=== PATIENT | female | born 1960 | race Caucasian/White ===

== ENCOUNTER 2016-11-19 19:10 | Emergency (ER) | payer MEDICARE, MEDICAID ==
[2016-11-19] MEDS ORDERED: Haloperidol Lactate 5 mg/mL 1mL Vial IM STA (19:11)
[2016-11-19] MEDS ORDERED: Haloperidol Lactate 5 mg/mL 1mL Vial ONE (19:15)
[2016-11-19 20:30] LABS: % BASOPHILS 0.5 % (0.0-2.0); % LYMPHOCYTES 35.3 % (20.0-50.0); % MONOCYTES 12.2 % (2.0-10.0); HEMATOCRIT 33.3 % (35.0-45.0); HEMOGLOBIN 11.5 gm/dL (11.7-15.5); MEAN CELL VOLUME 86.2 fl (81-100); MEAN CORPUSCULAR HEMOGLOBIN 29.7 pg (27.0-31.0); MEAN CORPUSCULAR HGB CONC 34.5 pg (28.0-36.0); MEAN PLATELET VOLUME 9.3 fl; PLATELET COUNT 156 Th/cmm (150-400); RED BLOOD COUNT 3.86 Mil/cmm (3.80-5.10); WHITE BLOOD COUNT 8.1 Th/cmm (4.8-10.8)
[2016-11-19 20:46] LABS: ALB/GLOB RATIO 1.6 (1.0-1.8); ALKALINE PHOSPHATASE 98 U/L (34-104); ANION GAP 5.3 (7.0-16.0); BILIRUBIN,TOTAL 0.2 mg/dL (0.3-1.0); BUN - UREA NITROGEN 10 mg/dL (7-25); BUN/CREATININE RATIO 14.3; CALCIUM SERUM 9.7 mg/dL (8.6-10.3); CARBON DIOXIDE 32.6 mEq/L (21.0-31.0); CHLORIDE 98 mEq/L (98-107); CREATININE - SERUM 0.7 mg/dL (0.6-1.2); GLUCOSE 94 mg/dL (70-105); POTASSIUM SERUM 3.9 mEq/L (3.5-5.1); SGOT 12 U/L (13-39); SGPT/ALT 5 U/L (7-52); SODIUM SERUM 132 mEq/L (136-145)
--- NOTE | 2016-11-19 20:59 | ED Physician Chart ---
Chief Complaint/HPI - Patient Information Date Seen:: 11/19/16 Time Seen:: 19:44 Chief Complaint:: PSYCHOSIS History of Present Illness:: THIS IS A LOUD COMBATIVE 56 YO FEMALE SENT HERE FOR EVALUATION AND TREATMENT. SHE IS SCREAMING AND WITH UNCONTROLLED AND HAD TO BE GIVEN SEDATION TO EXAMINE AND TREAT HER. Allergies:: Allergies Allergy/AdvReac Type Severity Reaction Status Date / Time Penicillins Allergy Verified 11/19/16 19:31 pregabalin Allergy Verified 11/19/16 19:31 Vitals:: Vital Signs - 8 hr 11/19/16 19:31 Temp 98.1 F HR 71 RR 20 BP 125/50 O2 Sat % 97 Historian:: Patient Review:: Nurse's Note Reviewed, Old Chart Reviewed, Transfer documents Reviewed Review of Systems - Review of Systems General/Constitutional: No fever, No chills, No weight loss, No weakness, No diaphoresis, No edema, No loss of appetite, Other (UNABLE TO OBTAIN BECAUSE OF HER CONFUSION) Skin: No skin lesions, No rash, No bruising Head: No headache, No light-headedness Eyes: No loss of vision, No pain, No diplopia ENT: No earache, No nasal drainage, No sore throat, No tinnitus Neck: No neck pain, No swelling, No thyromegaly, No stiffness, No mass noted Cardio Vascular: No chest pain, No palpitations, No PND, No orthopnea, No edema Pulmonary: No SOB, No cough, No sputum, No wheezing GI: No nausea, No vomiting, No diarrhea, No pain, No melena, No hematochezia, No constipation, No hematemesis G/U: No dysuria, No frequency, No hematuria Musculoskeletal: No bone or joint pain, No back pain, No muscle pain Endocrine: No polyuria, No polydipsia Psychiatric: No prior psych history, No depression, No anxiety, No suicidal ideation Hematopoietic: No bruising, No lymphadenopathy Allergic/Immuno: No urticaria, No angioedema Neurological: No syncope, No focal symptoms, No weakness, No paresthesia, No headache, No seizure, No dizziness, No confusion, No vertigo Past Medical History - Past Medical History Obtainable: Yes Past Medical History: PUD/GERD, Dementia Family History: None Social History: Non Smoker, No Alcohol, No Drug Use Surgical History: Pacemaker Psychiatricy History: Schizophrenia, Bipolar, Dementia Physical Exam - Physical Examination General/Constitutional: Awake, Well-developed, well-nourished, Alert, No distress, GCS 15, Non-toxic appearing, Ambulatory Other Gen/Cons comments:: THIS PATIENT IS OUT OF CONTROL FIGHTING, SCREAMING AND BEING UNCOOPERATIVE. Head: Atraumatic Eyes: Lids, conjuctiva normal, PERRL, EOMI Skin: Nl inspection, No rash, No skin lesions, No ecchymosis, Well hydrated, No lymphadenopathy ENMT: External ears, nose nl, Nasal exam nl, Lips, teeth, gums nl Neck: Nontender, Full ROM w/o pain, No JVD, No nuchal rigidity, No bruit, No mass, No stridor Respiratory: Nl effort/Exclusion, Clear to Auscultation, No Wheeze/Rhonchi/Rales Cardio Vascular: RRR, No murmur, gallop, rubs, NL S1 S2 GI: No tenderness/rebounding/guarding, No organomegaly, No hernia, Normal BS's, Nondistended, No mass/bruits, No McBurney tenderness : No CVA tenderness Extremities: No tenderness or effusion, Full ROM, normal strength in all extremities, No edema, Normal digits & nails Neuro/Psych: DTR's symmetric, Normal sensory exam, Normal motor strength, Normal gait, No focal deficits Other Neuro/Psych comments:: THIS PATIENT IS DISORIENTED AND CONFUSED Misc: normal gait, Normal back, No paraspinal tenderness Labs/Radiology/EKG Results - Lab Results Results: Laboratory Tests 11/19/16 11/19/16 11/19/16 20:15 20:15 20:15 WBC 8.1 RBC 3.86 Hgb 11.5 L Hct 33.3 L MCV 86.2 MCH 29.7 MCHC Differential 34.5 RDW 15.0 Plt Count 156 MPV 9.3 Neutrophils % 50.0 Lymphocytes % 35.3 Monocytes % 12.2 H Eosinophils % 2.0 Basophils % 0.5 Sodium 132 L Potassium 3.9 Chloride 98 Carbon Dioxide 32.6 H Anion Gap 5.3 L BUN 10 Creatinine 0.7 Est GFR ( Amer) > 60.0 Est GFR (Non-Af Amer) > 60.0 BUN/Creatinine Ratio 14.3 Glucose 94 Calcium 9.7 Total Bilirubin 0.2 L AST 12 L ALT 5 L Alkaline Phosphatase 98 Troponin I < 0.01 L Total Protein 5.9 L Albumin 3.6 L Globulin 2.3 Albumin/Globulin Ratio 1.6 Abnormal Lab Results 11/19/16 11/19/16 11/19/16 20:15 20:15 20:15 WBC 8.1 RBC 3.86 Hgb 11.5 L Hct 33.3 L MCV 86.2 MCH 29.7 MCHC Differential 34.5 RDW 15.0 Plt Count 156 MPV 9.3 Neutrophils % 50.0 Lymphocytes % 35.3 Monocytes % 12.2 H Eosinophils % 2.0 Basophils % 0.5 Sodium 132 L Potassium 3.9 Chloride 98 Carbon Dioxide 32.6 H Anion Gap 5.3 L BUN 10 Creatinine 0.7 Est GFR ( Amer) > 60.0 Est GFR (Non-Af Amer) > 60.0 BUN/Creatinine Ratio 14.3 Glucose 94 Calcium 9.7 Total Bilirubin 0.2 L AST 12 L ALT 5 L Alkaline Phosphatase 98 Troponin I < 0.01 L Total Protein 5.9 L Albumin 3.6 L Globulin 2.3 Albumin/Globulin Ratio 1.6 Assessment - Assessment General Assessment: PSYCHOSIS ED Septic Shock - . 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
[2016-11-19] MEDS ORDERED: Levothyroxine 0.025 Mg Tab PO ONE (21:54)
[2016-11-19] MEDS ORDERED: Levothyroxine 0.025 Mg Tab ONE (22:16)
--- NOTE | 2016-11-20 08:22 | Diagnostic Imaging Report ---
CHEST X-RAY: AP view INDICATION: Cough COMPARISON: None FINDINGS: Left chest wall pacer seen with leads in the region right atrium and right ventricle. Chronic lung changes are seen with suboptimal lung volumes and increased left basal lung markings. There may be a trace left effusion. Heart size is normal. Atherosclerosis is noted. Degenerative changes of the spine and shoulders are noted. IMPRESSION: Suboptimal lung markings are seen with chronic changes. Increased left basal lung markings are seen which may be due to subsegmental atelectasis. Underlying infiltrate is considered less likely Questionable trace left effusion Pacemaker noted.
== END 2016-11-19 23:00 ==
LOC: ER 19:10
DX: F29 Unspecified psychosis not due to a substance or known physiological condition (principal); K21.9 Gastro-esophageal reflux disease without esophagitis; F20.9 Schizophrenia, unspecified; F31.9 Bipolar disorder, unspecified; Z88.0 Allergy status to penicillin; Z88.8 Allergy status to other drugs, medicaments and biological substances; Z96.89 Presence of other specified functional implants
CPT/HCPCS: 99285; 96372 ×3; 71010; 84484; 36415; 84443; 85025; 80053; J2060; J1200; J1630

== ENCOUNTER 2016-11-20 12:56 | Inpatient (IN) | payer MEDICARE, MEDICAID ==
--- NOTE | 2016-11-20 13:09 | ED Physician Chart ---
Chief Complaint/HPI - Patient Information Date Seen:: 11/20/16 Time Seen:: 13:04 Chief Complaint:: difficult behavior History of Present Illness:: pt here for difficult behavior at her halfway. Has been agitated and difficult to redirect..throwing things at staff and cursing and striking out at others. pt was here last nt and had labs done but there were no psych beds available. pt has had no major events in interim. pt has a known small decub wound 1/2 cm posterior l hip. psy dept tell me they are ok w our using labs from last nt. no recent fever. pt says she is hungry and wants to use bathroom..is alert and talking such but wont answer questions or follow even simple commands for me. very poor historian. she denies acute pain...or injury. Allergies:: Allergies Allergy/AdvReac Type Severity Reaction Status Date / Time Penicillins Allergy Verified 11/19/16 19:31 pregabalin Allergy Verified 11/19/16 19:31 Historian:: Patient Review of Systems - Review of Systems General/Constitutional: No fever, No chills, No weight loss, No weakness, No diaphoresis, No edema, No loss of appetite Skin: No skin lesions, No rash, No bruising Head: No headache, No light-headedness Eyes: No loss of vision, No pain, No diplopia ENT: No earache, No nasal drainage, No sore throat, No tinnitus Neck: No neck pain, No swelling, No thyromegaly, No stiffness, No mass noted Cardio Vascular: No chest pain, No palpitations, No PND, No orthopnea, No edema Pulmonary: No SOB, No cough, No sputum, No wheezing GI: No nausea, No vomiting, No diarrhea, No pain, No melena, No hematochezia, No constipation, No hematemesis G/U: No dysuria, No frequency, No hematuria Musculoskeletal: No bone or joint pain, No back pain, No muscle pain Endocrine: No polyuria, No polydipsia Psychiatric: Prior psych history, No depression, No anxiety, No suicidal ideation, Other (agitation) Hematopoietic: No bruising, No lymphadenopathy Allergic/Immuno: No urticaria, No angioedema Neurological: No syncope, No focal symptoms, No weakness, No paresthesia, No headache, No seizure, No dizziness, No confusion, No vertigo Past Medical History - Past Medical History Past Medical History: Dementia Social History: Care Facility Medication: Reviewed Family Medical History - Family Member Mother History Unknown: Yes Physical Exam - Physical Examination General/Constitutional: Awake, Well-developed, well-nourished, Alert, No distress, GCS 15, Non-toxic appearing, Ambulatory Head: Atraumatic Eyes: Lids, conjuctiva normal, PERRL, EOMI Skin: Nl inspection, No rash, No skin lesions, No ecchymosis, Well hydrated, No lymphadenopathy ENMT: External ears, nose nl, Nasal exam nl, Lips, teeth, gums nl Neck: Nontender, Full ROM w/o pain, No JVD, No nuchal rigidity, No bruit, No mass, No stridor Respiratory: Nl effort/Exclusion, Clear to Auscultation, No Wheeze/Rhonchi/Rales Cardio Vascular: RRR, No murmur, gallop, rubs, NL S1 S2 GI: No tenderness/rebounding/guarding, No organomegaly, No hernia, Normal BS's, Nondistended, No mass/bruits, No McBurney tenderness : No CVA tenderness Extremities: No tenderness or effusion, Full ROM, normal strength in all extremities, No edema, Normal digits & nails Other Extremities comments:: small decub wound 1/2 cm posterior l hip. Neuro/Psych: Alert/oriented, DTR's symmetric, Normal sensory exam, Normal motor strength, Mood normal, Normal gait, No focal deficits Other Neuro/Psych comments:: no obv neuro defecit. pt seems somewhat labile ..currently calm /manageable. Misc: normal gait, Normal back, No paraspinal tenderness ED Septic Shock - . Is Septic Shock (SBP<90, OR Lactate>4 mmol\L) present?: No Reassessment (Disposition) - Reassessment Reassessment:: Labs from last nt reviewed. concerning only in that tsh is 12...pt not on any thyroid med. Free T4 level added (is send out lab);; suspect new onset hypothyroid dz. Depakote level added to send out labs also.. pt being admitted to geripsych unit. Reassessment Condition:: Unchanged - Diagnosis Diagnosis:: 1 difficult behavior at NH 2 new onset hypothyroid dz 3 decubital wound - Patient Disposition Admitted to:: [facility] Condition at Disposition:: Unchanged
[2016-11-20 16:04] VITALS: BP 136/76
[2016-11-20] MEDS ORDERED: Magnesium Hydroxide (MOM) 30 mL UDC PO PRN (16:05)
[2016-11-20] MEDS ORDERED: Non-Formulary Item 1 EA (Acetaminophen [8 Hour] 650 MG) PO SCH (16:15)
[2016-11-20] MEDS ORDERED: Haloperidol Lactate 5 mg/mL 1mL Vial IM STA (16:38)
[2016-11-20] MEDS ORDERED: Haloperidol Lactate 5 mg/mL 1mL Vial ONE (16:46)
[2016-11-20] MEDS: Dextromethorphan/Quinidine 20mg/10mg Cap PO SCH (20:32)
--- NOTE | 2016-11-21 04:32 | Admit Criteria Form ---
Admit Criteria Forms - Admit Criteria Diagnosis: PSYCHIATRIC DISORDERS (Place 'X' for any and all applicable criteria): Ongoing inpatient care may be needed for 1 or more of the following(1)(2)(3)(4)( 6)(7)(8): [ ]I. Danger to self or others not manageable at lower level of care. [ ]II. Grave disability (eg, inability to perform self care necessary at lower level of care) [X ]III. Agitation or inappropriate behavior interfering with care for primary condition (eg, attempting to discontinue lines or drains prematurely, unable to cooperate with respiratory care) [ ]IV. Severe disability or disorder indicated by ALL of the following: [ ]a) Severe behavioral health disorder-related symptoms or condition indicated by 1 or more of the following: [ ]i) Severe problem with cognition, memory, judgment, or impulse control [ ]ii) Severe clinical manifestations (eg, hallucinations, delusions, other acute psychotic symptoms, xochilt, extreme agitation or anxiety) [ ]b) Patient management at lower level of care is not feasible until acute intervention or modification is initiated. Extended stay beyond goal length of stay for the primary condition may be needed until ALLof the following are present(1)(2)(3)(4)(722)(23): [ ]a) Danger to self or others is absent or manageable at lower level of care [ ]b) Behavior crisis management, including physical or chemical restraints, is required and is not available at a lower level of care. [ ]c) Behavioral symptoms (e.g., agitation, somnolence, inappropriate behavior) are present, and are not manageable at a lower level of care. [ ]d) Patient cannot understand follow-up treatment and crisis plan. [ ]e) Provider and supports are sufficiently available at lower level of care. [ ]f) Patient can participate (e.g., verify absence of plan for harm) and is in needed of monitoring. The original [facility] [employer] content created by [email or web address] has been revised. The portions of the content which have been revised are identified through the use of italic text or in bold, and [email or web address] has neither reviewed nor approved the modified material. All other unmodified content is copyright [email or web address]. Please see references footnoted in the original [facility] edition 2017 Admit Criteria Met?: Yes
--- NOTE | 2016-11-21 08:37 | History and Physical ---
History of Present Illness - HPI Chief Complaint: Psychosis HPI: 56 year old female who presents to [facility] for increased agitation and change in behavior noted at the detention. Patient has been agitated and staff has difficulty with redirection. Patient has been cursing and striking out to others. Patient was initially evaluated and labwork done. Patient has no fevers. Patient denies acute pain. patient unable to answer questions or follow commands. Vital Signs: Last Vital Signs Temp 97.8 F 11/21/16 06:22 Pulse 67 11/21/16 06:22 Resp 20 11/21/16 06:22 BP 143/62 11/21/16 06:22 Pulse Ox 98 11/21/16 06:22 Past Medical History Cardiovascular: Report: No Pertinent Hx Pulmonary: Report: No Pertinent Hx [employer]: Report: Seizure GI: Report: No Pertinent Hx Psych: Report: Other (Pseudobulbar affect disorder) Musculoskeletal: Report: No Pertinent Hx Rheumatologic: Report: No pertinent Hx Infectious Disease: Report: No Pertinent Hx Renal/: Report: No Pertinent Hx Endocrine: Report: No Pertinent Hx Dermatology: Report: No Pertinent Hx Other History: Anemia - Past Surgical History Past Surgical History: No pertinent Hx Family Medical History - Family Member Mother History Unknown: Yes Social History Smoke: No Alcohol: None Drugs: None Lives: Senior Living - Medications Home Medications: Home Medication Medication Instructions Recorded Type Acetaminophen [Tylenol] 650 mg PO Q4HR PRN 11/19/16 History Alprazolam [Xanax*] 1 mg PO Q4H PRN 11/19/16 History Ascorbic Acid [Vitamin C] 500 mg PO DAILY 11/19/16 History Bisacodyl [Dulcolax 10 Mg Supp] 10 mg RC DAILY PRN 11/19/16 History Clotrimazole 1% Cream [Lotrimin 1% 1 appl TP BID 11/19/16 History Cream] Divalproex DR [Depakostar DR] 500 mg PO TID 11/19/16 History Docusate Sodium [Colace] 100 mg PO BID 11/19/16 History Famotidine 20 mg PO DAILY 11/19/16 History Ferrous Sulfate [Iron] 1 tab PO DAILY 11/19/16 History Folic Acid [Folate*] 1 mg PO DAILY 11/19/16 History Magnesium Hydroxide [Milk of 30 ml PO PRN PRN 11/19/16 History Magnesia] Nystatin/Triamcin 1 applic TP TID 11/19/16 History [Nystatin-Triamcinolone Cream] OLANZapine [ZyPREXA] 15 mg PO BID 11/19/16 History Temazepam [Restoril*] 15 mg PO HS PRN 11/19/16 History Zinc Sulfate 220 mg PO DAILY 11/19/16 History Acetaminophen [8 Hour] 650 mg PO X1 11/20/16 History Alginate Dressing [Algisite M] 1 each TP DAILY 11/20/16 History Dextromethorphan/Quinidine 1 cap PO Q12H 11/20/16 History [Nuedexta 20mg-10mg] Multivit,Th Iron,Other Min 1 tab PO DAILY 11/20/16 History [Thera-M W/Minerals] Multivitamin [Multivitamins] 1 sgl PO DAILY 11/20/16 History OLANZapine [ZyPREXA] 15 mg PO BID 11/20/16 History - Allergies Allergies/Adverse Reactions: Allergies Allergy/AdvReac Type Severity Reaction Status Date / Time Penicillins Allergy Verified 11/19/16 19:31 pregabalin Allergy Verified 11/19/16 19:31 Review of Systems - Review of Systems Constitutional: Report: No Significant Eyes: Report: No Significant ENT: Report: No Significant Respiratory: Report: No Significant Cardiovascular: Report: No Significant Gastrointestinal: Report: No Significant Genitourinary: Report: No Significant Musculoskeletal: Report: No Significant Skin: Report: No Significant Neurological: Report: No Significant Physical Exam - Physical Exam HEENT: Report: Ears Nose Throat within normal limits, Pharnyx within normal limits Neck: Report: Within normal limits Cardiovascular Systems: Report: +s1/s2 noted, Regular, Rate and Rhythm Respiratory: Report: Breath Sounds are within normal limits Extremities: Report: Non-tender to palpation. - Lab Results All Lab Results last 24 hours: Laboratory Last Values Free T4 0.97 ng/dL (0.82-1.77) 11/20/16 13:20 - Assessment Assessment: Current Active Problems Problem Status Onset EXTREME AGITATION AND LASHING OUT AT STA Acute psychosis hyponatremia hypothyroidism seizure disorder pseudobulbar affect disorder anemia anxiety disorder - Plan Plan: psychosis ... admit to geropsyche hyponatremia ... will repeat BMP hypothyroidism ... will start levothyroxine 50mcg PO daily seizure disorder ... stable. on depakote pseudobulbar affect disorder anemia ... on ferrous sulfate. anxiety disorder
[2016-11-21] MEDS ORDERED: ALGINATE DRESSING TP SCH (09:00)
[2016-11-21] MEDS ORDERED: Non-Formulary Item 1 EA (Multivitamin [Multivitamins] 1 SGL) PO SCH (09:00)
[2016-11-21] MEDS: Ferrous Sulfate 325 MG TAB PO SCH (09:47)
[2016-11-21] MEDS: Multivitamin w/ Minerals Tab PO SCH (09:47)
[2016-11-21] MEDS: Dextromethorphan/Quinidine 20mg/10mg Cap PO SCH ×2 (09:47→21:00)
--- NOTE | 2016-11-22 03:20 | Psychosocial Evaluation ---
DATE OF SERVICE: 11/21/2016 JUSTIFICATION FOR HOSPITALIZATION: Throwing things at staff, cursing, striking out, agitation. CHIEF COMPLAINT: "I want to leave." HISTORY OF PRESENT ILLNESS: A 56-year-old female with history of developmental disability, psychosis, anger, lashing out at staff, cursing, striking out. On [id number], the patient is yelling, screaming. Staff noting she is screaming nonstop. The patient is a poor historian. PAST PSYCHIATRIC HISTORY: Psychosis, developmental disability, anger, agitation, and poor impulse control. FAMILY HISTORY: Noncontributory. SOCIAL HISTORY: Unclear, but she does live in a home specifically for people with developmental disability. Unclear drugs, alcohol or tobacco. MEDICAL HISTORY: Please see full H and P. MEDICATIONS: Noted, no overt side effects. MENTAL STATUS EXAMINATION: Stated age. Poor dentition. Yelling. Poor historian, disoriented. No overt SI or HI. Poor impulse control. No overt psychotic symptoms, but guarded. PROVISIONAL DIAGNOSES: Psychosis, unspecified; mood, unspecified; developmental disability; anxiety, unspecified. MEDICAL: Please see full H and P. It seems that she may also carry a diagnosis of pseudobulbar affect. ESTIMATED LENGTH OF STAY: 7-10 days. ASSESSMENT: The patient requiring inpatient hospitalization, agitated, aggressive, throwing things, yelling, and striking out at staff. PLAN: Restart medications, adjust medications as tolerated. TREATMENT PLAN: Includes group, as well as milieu therapy. CONDITIONS FOR DISCHARGE: Improved mood, improved affect. Better control of any psychotic or mood symptoms. Better containment of aggressive behaviors. [facility]# [id number]
[2016-11-22] MEDS: Levothyroxine 0.05 Mg Tab PO SCH (06:43)
[2016-11-22 07:42] LABS: ANION GAP 8.4 (7.0-16.0); BUN - UREA NITROGEN 19 mg/dL (7-25); BUN/CREATININE RATIO 27.1; CALCIUM SERUM 9.7 mg/dL (8.6-10.3); CARBON DIOXIDE 28.8 mEq/L (21.0-31.0); CHLORIDE 104 mEq/L (98-107); CREATININE - SERUM 0.7 mg/dL (0.6-1.2); GLUCOSE 85 mg/dL (70-105); POTASSIUM SERUM 4.2 mEq/L (3.5-5.1); SODIUM SERUM 137 mEq/L (136-145)
--- NOTE | 2016-11-22 08:28 | General Progress Note ---
Subjective - Review of Systems Service Date: 11/22/16 Subjective: Awake,alert,afebrile. No acute distress. Objective - Results Result Diagrams: 11/22/16 06:40 Recent Labs: Laboratory Last Values Sodium 137 mEq/L (136-145) 11/22/16 06:40 Potassium 4.2 mEq/L (3.5-5.1) 11/22/16 06:40 Chloride 104 mEq/L (98-107) 11/22/16 06:40 Carbon Dioxide 28.8 mEq/L (21.0-31.0) 11/22/16 06:40 Anion Gap 8.4 (7.0-16.0) 11/22/16 06:40 BUN 19 mg/dL (7-25) 11/22/16 06:40 Creatinine 0.7 mg/dL (0.6-1.2) 11/22/16 06:40 Est GFR ( Amer) > 60.0 ml/min (>90) 11/22/16 06:40 Est GFR (Non-Af Amer) > 60.0 ml/min 11/22/16 06:40 BUN/Creatinine Ratio 27.1 11/22/16 06:40 Glucose 85 mg/dL (70-105) 11/22/16 06:40 Calcium 9.7 mg/dL (8.6-10.3) 11/22/16 06:40 Free T4 0.97 ng/dL (0.82-1.77) 11/20/16 13:20 Valproic Acid 65.9 ug/mL (50.0-100.0) 11/20/16 13:59 - Physical Exam Vitals and I&O: Vital Signs Temp 98.4 F 11/22/16 07:07 Pulse 95 11/22/16 07:07 Resp 18 11/22/16 07:07 BP 128/80 11/22/16 07:07 Pulse Ox 100 11/22/16 07:07 Intake & Output 11/21/16 11/22/16 11/22/16 18:59 06:59 18:59 Intake Total 1200 120 Balance 1200 120 Intake: Oral 1200 120 Other: # Voids 3 # Bowel Movements 1 Active Medications: Current Medications Acetaminophen (Tylenol) 650 mg PO Q4H PRN PRN Reason: TEMP >100 Stop: 01/19/17 16:04 Alprazolam (Xanax) 1 mg PO Q4H PRN PRN Reason: Anxiety Last Admin: 11/22/16 02:37 Dose: 1 mg Ascorbic Acid (Vitamin C) 500 mg PO DAILY LEVY Stop: 01/20/17 08:59 Last Admin: 11/21/16 09:47 Dose: 500 mg Bisacodyl (Dulcolax 10 Mg Supp) 10 mg RC DAILY PRN PRN Reason: Constipation Stop: 01/19/17 16:04 Clotrimazole (Lotrimin 1% Cream) 1 appl TP BID LEVY Stop: 01/19/17 16:59 Last Admin: 11/21/16 18:51 Dose: Not Given Dextromethorphan/Quinidine (Nuedexta 20mg-10mg) 1 cap PO Q12HR LEVY Stop: 01/19/17 20:59 Last Admin: 11/21/16 21:00 Dose: 1 cap Divalproex Sodium (Depakote Dr) 500 mg PO TID LEVY PRN Reason: Protocol Stop: 01/19/17 20:59 Last Admin: 11/21/16 21:01 Dose: 500 mg Docusate Sodium (Colace) 100 mg PO BID LEVY Stop: 01/19/17 16:59 Last Admin: 11/21/16 18:52 Dose: Not Given Famotidine (Pepcid) 20 mg PO DAILY LEVY Stop: 01/20/17 08:59 Last Admin: 11/21/16 09:47 Dose: 20 mg Ferrous Sulfate (Iron) 325 mg PO DAILY LEVY Stop: 01/20/17 08:59 Last Admin: 11/21/16 09:47 Dose: 325 mg Folic Acid (Folate) 1 mg PO DAILY LEVY Stop: 01/20/17 08:59 Last Admin: 11/21/16 09:47 Dose: 1 mg Levothyroxine Sodium (Synthroid) 0.05 mg PO QDAC LEVY Stop: 01/21/17 07:29 Last Admin: 11/22/16 06:43 Dose: 0.05 mg Magnesium Hydroxide (Milk Of Magnesia) 30 ml PO PRN PRN PRN Reason: Constipation Stop: 01/19/17 16:04 Miscellaneous (Alginate Dressing [Algisite M]) 1 each TP DAILY LEVY Stop: 10/15/17 08:59 Nystatin/Triamcinolone Acetonide (Mycolog Ii Cream) 1 appl TP TID LEVY Stop: 01/19/17 20:59 Last Admin: 11/21/16 21:27 Dose: Not Given Olanzapine (Zyprexa) 15 mg PO BID LEVY PRN Reason: Protocol Stop: 01/19/17 16:59 Last Admin: 11/21/16 17:46 Dose: Not Given Temazepam (Restoril) 15 mg PO HS PRN; Protocol PRN Reason: Insomnia Stop: 01/19/17 20:59 Zinc Sulfate (Zinc Sulfate) 220 mg PO DAILY LEVY Stop: 01/20/17 08:59 Last Admin: 11/21/16 09:47 Dose: 220 mg General: Alert HEENT: Atraumatic, PERRLA, EOMI Neck: Supple Cardiovascular: Regular rate, Normal S1, Normal S2 Lungs: Clear to auscultation Abdomen: Bowel sounds Extremities: no Clubbing, no Cyanosis, no Edema - Procedures Procedures: Procedures Procedure Code Date INDIVID PSYCHOTHERAP NEC 94.39 06/08/08 OTHER GROUP THERAPY 94.44 06/08/08 Assessment/Plan - Problem List Patient Problems: All Active Problems Anemia (Acute) D64.9 Anxiety (Acute) F41.9 EXTREME AGITATION AND LASHING OUT AT STA (Acute) Hyponatremia (Acute) E87.1 Hypothyroid (Acute) E03.9 Pseudobulbar affect (Acute) F48.2 Seizure (Acute) R56.9 - Assessment Assessment: Current Active Problems Problem Status Onset EXTREME AGITATION AND LASHING OUT AT STA Acute psychosis hyponatremia hypothyroidism seizure disorder pseudobulbar affect disorder anemia anxiety disorder - Plan Plan: psychosis ... admit to geropsyche hyponatremia ... will repeat BMP hypothyroidism ... will start levothyroxine 50mcg PO daily seizure disorder ... stable. on depakote pseudobulbar affect disorder anemia ... on ferrous sulfate. anxiety disorder
[2016-11-22] MEDS: Multivitamin w/ Minerals Tab PO SCH (08:59)
[2016-11-22] MEDS: Ferrous Sulfate 325 MG TAB PO SCH (09:00)
[2016-11-22] MEDS: Dextromethorphan/Quinidine 20mg/10mg Cap PO SCH ×2 (09:01→20:48)
--- NOTE | 2016-11-22 20:04 | Progress Notes ---
DATE: 11/22/[address] Vasques. Case was discussed with staff of the patient, reviewed records. This is a 56-year-old female who was admitted on the 11/20/2016 because of psychosis and agitation. The patient has a history of developmental disability, ____ disease, she is psychotic, angry, lashing out at staff, cursing and striking out. The patient is impulsive, unpredictable. She lives in home specifically for people with developmental disorder. The patient is unable to talk and unable to express herself. She is unpredictable, impulsive, continues to need redirection. She has been on Xanax 1 mg every 4 hours and Nuedexta 1 tablet twice a day, Depakote 500 mg 3 times a day, iron, folic acid, levothyroxine, multivitamin, Zyprexa 15 mg twice a day and temazepam at bedtime for lack of sleep. No side effects with the medication, no sedation, no nausea. Very poor historian, yelling and screaming, unpredictable, impulsive and we will continue to work with the patient in group therapy, milieu therapy, and adjust her medications as needed. JOB# [id number]
[2016-11-23] MEDS: Levothyroxine 0.05 Mg Tab PO SCH (06:47)
--- NOTE | 2016-11-23 08:30 | General Progress Note ---
Subjective - Review of Systems Service Date: 11/23/16 Subjective: Awake,alert,afebrile. No acute distress. Patient presents with wound to her left hip. Objective - Results Result Diagrams: 11/22/16 06:40 Recent Labs: Laboratory Last Values Sodium 137 mEq/L (136-145) 11/22/16 06:40 Potassium 4.2 mEq/L (3.5-5.1) 11/22/16 06:40 Chloride 104 mEq/L (98-107) 11/22/16 06:40 Carbon Dioxide 28.8 mEq/L (21.0-31.0) 11/22/16 06:40 Anion Gap 8.4 (7.0-16.0) 11/22/16 06:40 BUN 19 mg/dL (7-25) 11/22/16 06:40 Creatinine 0.7 mg/dL (0.6-1.2) 11/22/16 06:40 Est GFR ( Amer) > 60.0 ml/min (>90) 11/22/16 06:40 Est GFR (Non-Af Amer) > 60.0 ml/min 11/22/16 06:40 BUN/Creatinine Ratio 27.1 11/22/16 06:40 Glucose 85 mg/dL (70-105) 11/22/16 06:40 Calcium 9.7 mg/dL (8.6-10.3) 11/22/16 06:40 Free T4 0.97 ng/dL (0.82-1.77) 11/20/16 13:20 Valproic Acid 65.9 ug/mL (50.0-100.0) 11/20/16 13:59 - Physical Exam Vitals and I&O: Vital Signs Temp 97.2 F 11/23/16 06:50 Pulse 82 11/23/16 06:50 Resp 19 11/23/16 06:50 BP 113/66 11/23/16 06:50 Pulse Ox 97 11/23/16 06:50 Intake & Output 11/22/16 11/23/16 11/23/16 18:59 06:59 18:59 Intake Total 620 120 Balance 620 120 Intake: Oral 620 120 Other: # Voids 3 3 Active Medications: Current Medications Acetaminophen (Tylenol) 650 mg PO Q4H PRN PRN Reason: TEMP >100 Stop: 01/19/17 16:04 Alprazolam (Xanax) 1 mg PO Q4H PRN PRN Reason: Anxiety Last Admin: 11/23/16 05:30 Dose: 1 mg Ascorbic Acid (Vitamin C) 500 mg PO DAILY LEVY Stop: 01/20/17 08:59 Last Admin: 11/22/16 08:59 Dose: 500 mg Bisacodyl (Dulcolax 10 Mg Supp) 10 mg RC DAILY PRN PRN Reason: Constipation Stop: 01/19/17 16:04 Clindamycin HCl (Cleocin Hcl) 300 mg PO Q8HR LEVY Stop: 01/22/17 12:59 Clotrimazole (Lotrimin 1% Cream) 1 appl TP BID LEVY Stop: 01/19/17 16:59 Last Admin: 11/22/16 17:51 Dose: Not Given Dextromethorphan/Quinidine (Nuedexta 20mg-10mg) 1 cap PO Q12HR LEVY Stop: 01/19/17 20:59 Last Admin: 11/22/16 20:48 Dose: 1 cap Divalproex Sodium (Depakote Dr) 500 mg PO TID LEVY PRN Reason: Protocol Stop: 01/19/17 20:59 Last Admin: 11/22/16 20:48 Dose: 500 mg Docusate Sodium (Colace) 100 mg PO BID LEVY Stop: 01/19/17 16:59 Last Admin: 11/22/16 17:51 Dose: Not Given Famotidine (Pepcid) 20 mg PO DAILY [facility]EV[facility] Stop: 01/20/17 08:59 Last Admin: 11/22/16 08:59 Dose: 20 mg Ferrous Sulfate (Iron) 325 mg PO DAILY [facility] Stop: 01/20/17 08:59 Last Admin: 11/22/16 09:00 Dose: 325 mg Folic Acid (Folate) 1 mg PO DAILY [facility] Stop: 01/20/17 08:59 Last Admin: 11/22/16 08:59 Dose: 1 mg Levothyroxine Sodium (Synthroid) 0.05 mg PO QDAC LEVY Stop: 01/21/17 07:29 Last Admin: 11/23/16 06:47 Dose: 0.05 mg Magnesium Hydroxide (Milk Of Magnesia) 30 ml PO PRN PRN PRN Reason: Constipation Stop: 01/19/17 16:04 Miscellaneous (Alginate Dressing [Algisite M]) 1 each TP DAILY LEV[facility] Stop: 01/20/17 08:59 Mupirocin (Bactroban Oint) 1 appl NS BID LEVY Stop: 11/27/16 17:01 Nystatin/Triamcinolone Acetonide (Mycolog Ii Cream) 1 appl TP TID LEVY Stop: 01/19/17 20:59 Last Admin: 11/22/16 20:49 Dose: Not Given Olanzapine (Zyprexa) 15 mg PO BID LEVY PRN Reason: Protocol Stop: 01/19/17 16:59 Last Admin: 11/22/16 17:51 Dose: 15 mg Temazepam (Restoril) 15 mg PO HS PRN; Protocol PRN Reason: Insomnia Stop: 01/19/17 20:59 Zinc Sulfate (Zinc Sulfate) 220 mg PO DAILY LEVY Stop: 01/20/17 08:59 Last Admin: 11/22/16 09:02 Dose: 220 mg General: Alert HEENT: Atraumatic, PERRLA, EOMI Neck: Supple Cardiovascular: Regular rate, Normal S1, Normal S2 Lungs: Clear to auscultation Abdomen: Bowel sounds Extremities: no Clubbing, no Cyanosis, no Edema - Procedures Procedures: Procedures Procedure Code Date INDIVID PSYCHOTHERAP NEC 94.39 06/08/08 OTHER GROUP THERAPY 94.44 06/08/08 Assessment/Plan - Problem List Patient Problems: All Active Problems Anemia (Acute) D64.9 Anxiety (Acute) F41.9 EXTREME AGITATION AND LASHING OUT AT STA (Acute) Hyponatremia (Acute) E87.1 Hypothyroid (Acute) E03.9 Pseudobulbar affect (Acute) F48.2 Seizure (Acute) R56.9 - Assessment Assessment: Current Active Problems Problem Status Onset EXTREME AGITATION AND LASHING OUT AT STA Acute psychosis hypothyroidism seizure disorder pseudobulbar affect disorder anemia anxiety disorder tinea corporis wound to left hip +MRSA nares - Plan Plan: psychosis ... admit to geropsyche hyponatremia ... will repeat BMP hypothyroidism ... will start levothyroxine 50mcg PO daily seizure disorder ... stable. on depakote pseudobulbar affect disorder anemia ... on ferrous sulfate. anxiety disorder Wound to left hip ... will order wound consult, start Clindamycin 300mg PO QID. surgical consult with Dr. Chino. +MRSA nares ... will order Bactroban.
[2016-11-23] MEDS: Ferrous Sulfate 325 MG TAB PO SCH (09:35)
[2016-11-23] MEDS: Dextromethorphan/Quinidine 20mg/10mg Cap PO SCH ×2 (09:36→21:19)
[2016-11-23] MEDS: Multivitamin w/ Minerals Tab PO SCH (09:36)
--- NOTE | 2016-11-23 21:36 | Progress Notes ---
DATE: 11/23/2016 Case was discussed with staff of the patient, reviewed records. The patient continues to stay in bed. Continues to be depressed. Continues to have poor insight. Continues to be unpredictable, impulsive, needing redirection. Looking disheveled, disorganized. The patient had severe developmental disability, unable to make safe plan for self-care. She is compliant with the medication with no side effects, no sedation, no nausea, no extrapyramidal symptoms. We will continue to work with the patient in group therapy, milieu therapy, adjust medication as needed. JOB# [id number]
--- NOTE | 2016-11-24 05:56 | General Progress Note ---
Subjective - Review of Systems Service Date: 11/24/16 Subjective: Awake,alert,afebrile. No acute distress. Patient presents with wound to her left hip. Objective - Results Result Diagrams: 11/22/16 06:40 Recent Labs: Laboratory Last Values Sodium 137 mEq/L (136-145) 11/22/16 06:40 Potassium 4.2 mEq/L (3.5-5.1) 11/22/16 06:40 Chloride 104 mEq/L (98-107) 11/22/16 06:40 Carbon Dioxide 28.8 mEq/L (21.0-31.0) 11/22/16 06:40 Anion Gap 8.4 (7.0-16.0) 11/22/16 06:40 BUN 19 mg/dL (7-25) 11/22/16 06:40 Creatinine 0.7 mg/dL (0.6-1.2) 11/22/16 06:40 Est GFR ( Amer) > 60.0 ml/min (>90) 11/22/16 06:40 Est GFR (Non-Af Amer) > 60.0 ml/min 11/22/16 06:40 BUN/Creatinine Ratio 27.1 11/22/16 06:40 Glucose 85 mg/dL (70-105) 11/22/16 06:40 Calcium 9.7 mg/dL (8.6-10.3) 11/22/16 06:40 Free T4 0.97 ng/dL (0.82-1.77) 11/20/16 13:20 Valproic Acid 65.9 ug/mL (50.0-100.0) 11/20/16 13:59 - Physical Exam Vitals and I&O: Vital Signs Temp 97.4 F 11/23/16 23:30 Pulse 70 11/23/16 14:00 Resp 20 11/23/16 14:00 BP 120/70 11/23/16 14:00 Pulse Ox 97 11/23/16 14:00 Intake & Output 11/23/16 11/23/16 11/24/16 06:59 18:59 06:59 Intake Total 120 500 Balance 120 500 Intake: Oral 120 500 Other: # Voids 3 3 2 Active Medications: Current Medications Acetaminophen (Tylenol) 650 mg PO Q4H PRN PRN Reason: TEMP >100 Stop: 01/19/17 16:04 Alprazolam (Xanax) 1 mg PO Q4H PRN PRN Reason: Anxiety Last Admin: 11/24/16 01:16 Dose: 1 mg Ascorbic Acid (Vitamin C) 500 mg PO DAILY [facility] Stop: 01/20/17 08:59 Last Admin: 11/23/16 09:36 Dose: 500 mg Bisacodyl (Dulcolax 10 Mg Supp) 10 mg RC DAILY PRN PRN Reason: Constipation Stop: 01/19/17 16:04 Clindamycin HCl (Cleocin Hcl) 300 mg PO Q8HR LEVY Stop: 01/22/17 12:59 Last Admin: 11/23/16 21:19 Dose: 300 mg Clotrimazole (Lotrimin 1% Cream) 1 appl TP BID LEVY Stop: 01/19/17 16:59 Last Admin: 11/23/16 17:14 Dose: 1 appl Dextromethorphan/Quinidine (Nuedexta 20mg-10mg) 1 cap PO Q12HR LEVY Stop: 01/19/17 20:59 Last Admin: 11/23/16 21:19 Dose: 1 cap Divalproex Sodium (Depakote Dr) 500 mg PO TID LEVY PRN Reason: Protocol Stop: 01/19/17 20:59 Last Admin: 11/23/16 21:20 Dose: 500 mg Docusate Sodium (Colace) 100 mg PO BID [facility] Stop: 01/19/17 16:59 Last Admin: 11/23/16 17:15 Dose: 100 mg Famotidine (Pepcid) 20 mg PO DAILY LEVY Stop: 01/20/17 08:59 Last Admin: 11/23/16 09:36 Dose: 20 mg Ferrous Sulfate (Iron) 325 mg PO DAILY LEVY Stop: 01/20/17 08:59 Last Admin: 11/23/16 09:35 Dose: 325 mg Folic Acid (Folate) 1 mg PO DAILY LEVY Stop: 01/20/17 08:59 Last Admin: 11/23/16 09:36 Dose: 1 mg Levothyroxine Sodium (Synthroid) 0.05 mg PO QDAC LEVY Stop: 01/21/17 07:29 Last Admin: 11/23/16 06:47 Dose: 0.05 mg Magnesium Hydroxide (Milk Of Magnesia) 30 ml PO PRN PRN PRN Reason: Constipation Stop: 01/19/17 16:04 Miscellaneous (Alginate Dressing [Algisite M]) 1 each TP DAILY LEVY Stop: 01/20/17 08:59 Mupirocin (Bactroban Oint) 1 appl NS BID LEVY Stop: 11/27/16 17:01 Last Admin: 11/23/16 18:12 Dose: 1 appl Nystatin/Triamcinolone Acetonide (Mycolog Ii Cream) 1 appl TP TID LEVY Stop: 01/19/17 20:59 Last Admin: 11/23/16 21:20 Dose: 1 appl Olanzapine (Zyprexa) 15 mg PO BID LEVY PRN Reason: Protocol Stop: 01/19/17 16:59 Last Admin: 11/23/16 17:14 Dose: 15 mg Temazepam (Restoril) 15 mg PO HS PRN; Protocol PRN Reason: Insomnia Stop: 01/19/17 20:59 Last Admin: 11/23/16 21:20 Dose: 15 mg Zinc Sulfate (Zinc Sulfate) 220 mg PO DAILY LEVY Stop: 01/20/17 08:59 Last Admin: 11/22/16 09:02 Dose: 220 mg General: Alert HEENT: Atraumatic, PERRLA, EOMI Neck: Supple Cardiovascular: Regular rate, Normal S1, Normal S2 Lungs: Clear to auscultation Abdomen: Bowel sounds Extremities: no Clubbing, no Cyanosis, no Edema Skin: Other (sore to the left hip) - Procedures Procedures: Procedures Procedure Code Date INDIVID PSYCHOTHERAP NEC 94.39 06/08/08 OTHER GROUP THERAPY 94.44 06/08/08 Assessment/Plan - Problem List Patient Problems: All Active Problems Anemia (Acute) D64.9 Anxiety (Acute) F41.9 EXTREME AGITATION AND LASHING OUT AT STA (Acute) Hyponatremia (Acute) E87.1 Hypothyroid (Acute) E03.9 Pseudobulbar affect (Acute) F48.2 Seizure (Acute) R56.9 - Assessment Assessment: Current Active Problems Problem Status Onset EXTREME AGITATION AND LASHING OUT AT STA Acute psychosis hypothyroidism seizure disorder pseudobulbar affect disorder anemia anxiety disorder tinea corporis wound to left hip +MRSA nares - Plan Plan: psychosis ... admit to geropsyche hyponatremia ... will repeat BMP hypothyroidism ... will start levothyroxine 50mcg PO daily seizure disorder ... stable. on depakote pseudobulbar affect disorder anemia ... on ferrous sulfate. anxiety disorder Wound to left hip ... will order wound consult, start Clindamycin 300mg PO QID. surgical consult with Dr. Chino. +MRSA nares ... will order Bactroban. Nutritional Asmnt/Malnutr-PDOC - Dietary Evaluation Malnutrition Findings (Please click <Entered> for more info): Nutritional Asmnt/Malnutrition Start: 11/22/16 14: 44 Text: Status: Complete Freq: Document 11/23/16 18:42 [facility] (Rec: 11/23/16 18:51 [facility] [id number]) Nutritional Asmnt/Malnutrition Patient General Information Nutritional Screening Consult Diagnosis Psychosis Pertinent Medical Hx/Surgical Hx Pseudobulbar affect disorder, seizure, developmental disability, psychosis, anger, poor impulse control Subjective Information Nutrition Consult for left hip wound received and completed. Pt is a 56-year-old female from [facility] admitted with chief complaint of increased agitation and change in behavior. RD attempted nutrition assessment twice on 11/22 and 11/23. Pt is a poor historian. Current Diet Order/ Nutrition Support Mechanical soft chopped Patient / S.O Can't verbalize diet edu Pertinent Medications Vitamin C, Cleocin, Depakote, Colace, Pepcid, Iron, Folate, Zyperxa, Zinc Sulfate Pertinent Labs Reviewed Nutritional Hx/Data Height 1.68 m Height (Calculated Centimeters) 167.6 Current Weight (lbs) 72.575 kg Weight (Calculated Kilograms) 72.6 Weight (Calculated Grams) 96638.8 [place] Body Weight 130 % [place] Body Weight 123 Weight Status Approriate GI Symptoms GI Symptoms None Food Allergies No Usual diet at home Mechanical soft chopped Skin Integrity/Comment: Faisal 16. Acute on chronic left lateral hip wound. Current %PO Good (75-100%) Estimated Nutritional Goals BEE in Kcals: Using Current wt Calories/Kcals/Kg Based on current wt 72.7 kg with consideration of wound Kcals Calculated 4558-7081 kcals/day (30-35 kcals/kg) Protein: Using Current wt Protein g/kg: Based on current wt 72.7 kg with consideration of wound Protein Calculated 73-87 gm/day (1-1.2 gm/kg) Fluid: ml 5425-6162 ml/day (1 ml/klcal) Nutritional Problem 1. Problem Problem Increased protein needs related to Etiology altered skin integrity as evidenced by Signs/Symptoms: acute on chronic wound to left lateral hip, per Wound RN notes. Malnutrition Alert Protein-Calorie Malnutrition N/A Is there a minimum of two criteria No selected? Query Text:Check all the applicable criteria. A minimum of two criteria are recommended for diagnosis of either severe or non-severe malnutrition. Intervention/Recommendation Comments 1. Continue with current diet as it is adequate to meet estimated nutritional needs. 2. Continue vitamin C and zinc supplementation for wound healing. Expected Outcomes/Goals Expected Outcomes/Goals Have pt meet at least 75% of estimated nutritional needs, improved skin integrity.
[2016-11-24] MEDS: Levothyroxine 0.05 Mg Tab PO SCH (06:47)
[2016-11-24] MEDS: Multivitamin w/ Minerals Tab PO SCH (08:11)
[2016-11-24] MEDS: Ferrous Sulfate 325 MG TAB PO SCH (08:11)
[2016-11-24] MEDS: Dextromethorphan/Quinidine 20mg/10mg Cap PO SCH (08:11)
--- NOTE | 2016-11-24 14:05 | Progress Notes ---
DATE: 11/24/2016 Dr. Gomez covering for Dr. Vasques. SUBJECTIVE: Chart reviewed and the patient interviewed. Also discussed the patient's condition with the staff and reviewed records and labs. The patient continued to be extremely agitated and extremely irritable. The patient also is still unpredictable and not able to answer any of my questions currently. The patient is obsessed by "I want coffee." The patient is yelling and screaming constantly and she is not able to follow any of staff directions. The patient also still has problem demanding. ASSESSMENT: The patient is still agitated and is still in angry and in irritable mood. TREATMENT PLAN: We will continue to monitor her condition and her behavior closely. Also, continue to work on her irritability and her agitation. Also, the patient is taking Depakote 500 mg 3 times a day and taking Zyprexa 15 mg twice a day with little help in regard to her ____. The patient also is on alprazolam on a p.r.n. basis. I will add Klonopin in a dose of 0.5 mg twice a day and we will continue to follow up her condition closely. JOB# [id number]
[2016-11-25] MEDS: Dextromethorphan/Quinidine 20mg/10mg Cap PO SCH ×3 (00:05→20:21)
[2016-11-25] MEDS: Levothyroxine 0.05 Mg Tab PO SCH (06:51)
--- NOTE | 2016-11-25 07:01 | General Progress Note ---
Subjective - Review of Systems Service Date: 11/25/16 Subjective: Awake,alert,afebrile. No acute distress. Patient presents with wound to her left hip. Objective - Results Result Diagrams: 11/22/16 06:40 Recent Labs: Laboratory Last Values Sodium 137 mEq/L (136-145) 11/22/16 06:40 Potassium 4.2 mEq/L (3.5-5.1) 11/22/16 06:40 Chloride 104 mEq/L (98-107) 11/22/16 06:40 Carbon Dioxide 28.8 mEq/L (21.0-31.0) 11/22/16 06:40 Anion Gap 8.4 (7.0-16.0) 11/22/16 06:40 BUN 19 mg/dL (7-25) 11/22/16 06:40 Creatinine 0.7 mg/dL (0.6-1.2) 11/22/16 06:40 Est GFR ( Amer) > 60.0 ml/min (>90) 11/22/16 06:40 Est GFR (Non-Af Amer) > 60.0 ml/min 11/22/16 06:40 BUN/Creatinine Ratio 27.1 11/22/16 06:40 Glucose 85 mg/dL (70-105) 11/22/16 06:40 Calcium 9.7 mg/dL (8.6-10.3) 11/22/16 06:40 Free T4 0.97 ng/dL (0.82-1.77) 11/20/16 13:20 Valproic Acid 65.9 ug/mL (50.0-100.0) 11/20/16 13:59 - Physical Exam Vitals and I&O: Vital Signs Temp 97.3 F 11/24/16 20:49 Pulse 76 11/24/16 20:49 Resp 19 11/24/16 20:49 BP 111/60 11/24/16 20:49 Pulse Ox 94 11/24/16 20:49 Intake & Output 11/24/16 11/24/16 11/25/16 06:59 18:59 06:59 Intake Total 500 Balance 500 Intake: Oral 500 Other: # Voids 2 3 Active Medications: Current Medications Acetaminophen (Tylenol) 650 mg PO Q4H PRN PRN Reason: TEMP >100 Stop: 01/19/17 16:04 Alprazolam (Xanax) 1 mg PO Q4H PRN PRN Reason: Anxiety Last Admin: 11/24/16 09:50 Dose: 1 mg Ascorbic Acid (Vitamin C) 500 mg PO DAILY LEVY Stop: 01/20/17 08:59 Last Admin: 11/24/16 08:11 Dose: 500 mg Bisacodyl (Dulcolax 10 Mg Supp) 10 mg RC DAILY PRN PRN Reason: Constipation Stop: 01/19/17 16:04 Clindamycin HCl (Cleocin Hcl) 300 mg PO Q8HR LEVY Stop: 01/22/17 12:59 Last Admin: 11/25/16 06:45 Dose: Not Given Clonazepam (Klonopin) 0.5 mg PO BID LEVY PRN Reason: Protocol Stop: 01/23/17 16:59 Last Admin: 11/24/16 16:48 Dose: 0.5 mg Clotrimazole (Lotrimin 1% Cream) 1 appl TP BID LEVY Stop: 01/19/17 16:59 Last Admin: 11/24/16 16:48 Dose: 1 appl Dextromethorphan/Quinidine (Nuedexta 20mg-10mg) 1 cap PO Q12HR LEVY Stop: 01/19/17 20:59 Last Admin: 11/25/16 00:05 Dose: Not Given Divalproex Sodium (Depakote Dr) 500 mg PO TID LEVY PRN Reason: Protocol Stop: 01/19/17 20:59 Last Admin: 11/25/16 00:04 Dose: Not Given Docusate Sodium (Colace) 100 mg PO BID LEVY Stop: 01/19/17 16:59 Last Admin: 11/24/16 16:48 Dose: 100 mg Famotidine (Pepcid) 20 mg PO DAILY [facility] Stop: 01/20/17 08:59 Last Admin: 11/24/16 08:11 Dose: 20 mg Ferrous Sulfate (Iron) 325 mg PO DAILY LEVY Stop: 01/20/17 08:59 Last Admin: 11/24/16 08:11 Dose: 325 mg Folic Acid (Folate) 1 mg PO DAILY LEVY Stop: 01/20/17 08:59 Last Admin: 11/24/16 08:15 Dose: 1 mg Levothyroxine Sodium (Synthroid) 0.05 mg PO QDAC LEVY Stop: 01/21/17 07:29 Last Admin: 11/25/16 06:51 Dose: 0.05 mg Lorazepam (Ativan) 1 mg PO Q6HR PRN; Protocol PRN Reason: Agitation Stop: 01/23/17 10:20 Magnesium Hydroxide (Milk Of Magnesia) 30 ml PO PRN PRN PRN Reason: Constipation Stop: 01/19/17 16:04 Mupirocin (Bactroban Oint) 1 appl NS BID LEVY Stop: 11/27/16 17:01 Last Admin: 11/24/16 19:54 Dose: Not Given Nystatin/Triamcinolone Acetonide (Mycolog Ii Cream) 1 appl TP TID LEVY Stop: 01/19/17 20:59 Last Admin: 11/25/16 00:05 Dose: Not Given Olanzapine (Zyprexa) 15 mg PO BID LEVY PRN Reason: Protocol Stop: 01/19/17 16:59 Last Admin: 11/24/16 19:54 Dose: Not Given Temazepam (Restoril) 15 mg PO HS PRN; Protocol PRN Reason: Insomnia Stop: 01/19/17 20:59 Last Admin: 11/23/16 21:20 Dose: 15 mg Zinc Sulfate (Zinc Sulfate) 220 mg PO DAILY LEVY Stop: 01/20/17 08:59 Last Admin: 11/24/16 19:54 Dose: Not Given General: Alert HEENT: Atraumatic, PERRLA, EOMI Neck: Supple Cardiovascular: Regular rate, Normal S1, Normal S2 Lungs: Clear to auscultation Abdomen: Bowel sounds Extremities: no Clubbing, no Cyanosis, no Edema Skin: Other (sore to the left hip) - Procedures Procedures: Procedures Procedure Code Date INDIVID PSYCHOTHERAP NEC 94.39 06/08/08 OTHER GROUP THERAPY 94.44 06/08/08 Assessment/Plan - Problem List Patient Problems: All Active Problems Anemia (Acute) D64.9 Anxiety (Acute) F41.9 EXTREME AGITATION AND LASHING OUT AT STA (Acute) Hyponatremia (Acute) E87.1 Hypothyroid (Acute) E03.9 Pseudobulbar affect (Acute) F48.2 Seizure (Acute) R56.9 - Assessment Assessment: Current Active Problems Problem Status Onset EXTREME AGITATION AND LASHING OUT AT STA Acute psychosis ... admit to geropsyche hyponatremia ... resolved. now normal hypothyroidism ... will start levothyroxine 50mcg PO daily seizure disorder ... stable. on depakote pseudobulbar affect disorder ... stable with medication anemia ... on ferrous sulfate. anxiety disorder Wound to left hip ... will order wound consult, start Clindamycin 300mg PO QID. surgical consult with Dr. Chino. +MRSA nares ... will order Bactroban. - Plan Plan: psychosis ... admit to geropsyche hyponatremia ... resolved. now normal hypothyroidism ... will start levothyroxine 50mcg PO daily seizure disorder ... stable. on depakote pseudobulbar affect disorder ... stable with medication anemia ... on ferrous sulfate. anxiety disorder Wound to left hip ... will order wound consult, start Clindamycin 300mg PO QID. surgical consult with Dr. Chino. +MRSA nares ... will order Bactroban. Nutritional Asmnt/Malnutr-PDOC - Dietary Evaluation Malnutrition Findings (Please click <Entered> for more info): Nutritional Asmnt/Malnutrition Start: 11/22/16 14: 44 Text: Status: Complete Freq: Document 11/23/16 18:42 [facility] (Rec: 11/23/16 18:51 [facility] [id number]) Nutritional Asmnt/Malnutrition Patient General Information Nutritional Screening Consult Diagnosis Psychosis Pertinent Medical Hx/Surgical Hx Pseudobulbar affect disorder, seizure, developmental disability, psychosis, anger, poor impulse control Subjective Information Nutrition Consult for left hip wound received and completed. Pt is a 56-year-old female from [facility] admitted with chief complaint of increased agitation and change in behavior. RD attempted nutrition assessment twice on 11/22 and 11/23. Pt is a poor historian. Current Diet Order/ Nutrition Support Mechanical soft chopped Patient / S.O Can't verbalize diet edu Pertinent Medications Vitamin C, Cleocin, Depakote, Colace, Pepcid, Iron, Folate, Zyperxa, Zinc Sulfate Pertinent Labs Reviewed Nutritional Hx/Data Height 1.68 m Height (Calculated Centimeters) 167.6 Current Weight (lbs) 72.575 kg Weight (Calculated Kilograms) 72.6 Weight (Calculated Grams) 66950.8 [place] Body Weight 130 % [place] Body Weight 123 Weight Status Approriate GI Symptoms GI Symptoms None Food Allergies No Usual diet at home Mechanical soft chopped Skin Integrity/Comment: Faisal 16. Acute on chronic left lateral hip wound. Current %PO Good (75-100%) Estimated Nutritional Goals BEE in Kcals: Using Current wt Calories/Kcals/Kg Based on current wt 72.7 kg with consideration of wound Kcals Calculated 5619-1783 kcals/day (30-35 kcals/kg) Protein: Using Current wt Protein g/kg: Based on current wt 72.7 kg with consideration of wound Protein Calculated 73-87 gm/day (1-1.2 gm/kg) Fluid: ml 2346-0519 ml/day (1 ml/klcal) Nutritional Problem 1. Problem Problem Increased protein needs related to Etiology altered skin integrity as evidenced by Signs/Symptoms: acute on chronic wound to left lateral hip, per Wound RN notes. Malnutrition Alert Protein-Calorie Malnutrition N/A Is there a minimum of two criteria No selected? Query Text:Check all the applicable criteria. A minimum of two criteria are recommended for diagnosis of either severe or non-severe malnutrition. Intervention/Recommendation Comments 1. Continue with current diet as it is adequate to meet estimated nutritional needs. 2. Continue vitamin C and zinc supplementation for wound healing. Expected Outcomes/Goals Expected Outcomes/Goals Have pt meet at least 75% of estimated nutritional needs, improved skin integrity.
[2016-11-25] MEDS: Ferrous Sulfate 325 MG TAB PO SCH (08:43)
[2016-11-25] MEDS: Multivitamin w/ Minerals Tab PO SCH (08:43)
--- NOTE | 2016-11-25 18:06 | Progress Notes ---
DATE: 11/25/2016 SUBJECTIVE: Chart reviewed and the patient interviewed. Also discussed the patient's condition with the staff and reviewed records and labs. The patient is stall saying "I want coffee," screaming and yelling the same sentence over and over. The patient is trying to help her out with her anger and irritability, but the patient with her cognitive abilities has difficulty understanding that and she continues to yell and screaming asking for more coffee. The patient also is still angry with the staff and she has a difficult time believing and trusting staff. She also still has difficulty following directions, although it is slightly easier to redirect her today than yesterday. At the same time, the patient is compliant with taking her medications. ASSESSMENT: The patient is still agitated and psychotic. TREATMENT PLAN: The patient was started on Klonopin yesterday, which seemed to help the patient a little bit. We will continue same dose and continue monitoring her psychotropic medications and continue to work on her poor impulse control. [facility]# [id number]
[2016-11-26] MEDS: Levothyroxine 0.05 Mg Tab PO SCH (06:32)
--- NOTE | 2016-11-26 08:42 | General Progress Note ---
Subjective - Review of Systems Service Date: 11/26/16 Subjective: Awake,alert,afebrile. No acute distress. Patient presents with wound to her left hip. Objective - Results Result Diagrams: 11/22/16 06:40 Recent Labs: Laboratory Last Values Sodium 137 mEq/L (136-145) 11/22/16 06:40 Potassium 4.2 mEq/L (3.5-5.1) 11/22/16 06:40 Chloride 104 mEq/L (98-107) 11/22/16 06:40 Carbon Dioxide 28.8 mEq/L (21.0-31.0) 11/22/16 06:40 Anion Gap 8.4 (7.0-16.0) 11/22/16 06:40 BUN 19 mg/dL (7-25) 11/22/16 06:40 Creatinine 0.7 mg/dL (0.6-1.2) 11/22/16 06:40 Est GFR ( Amer) > 60.0 ml/min (>90) 11/22/16 06:40 Est GFR (Non-Af Amer) > 60.0 ml/min 11/22/16 06:40 BUN/Creatinine Ratio 27.1 11/22/16 06:40 Glucose 85 mg/dL (70-105) 11/22/16 06:40 Calcium 9.7 mg/dL (8.6-10.3) 11/22/16 06:40 Free T4 0.97 ng/dL (0.82-1.77) 11/20/16 13:20 Valproic Acid 65.9 ug/mL (50.0-100.0) 11/20/16 13:59 - Physical Exam Vitals and I&O: Vital Signs Temp 97.8 F 11/26/16 06:58 Pulse 71 11/26/16 06:58 Resp 19 11/26/16 06:58 BP 94/68 11/26/16 06:58 Pulse Ox 98 11/26/16 06:58 Intake & Output 11/25/16 11/26/16 11/26/16 18:59 06:59 18:59 Intake Total 1800 240 Balance 1800 240 Intake: Oral 1800 240 Other: # Voids 5 1 # Bowel Movements 1 Active Medications: Current Medications Acetaminophen (Tylenol) 650 mg PO Q4H PRN PRN Reason: TEMP >100 Stop: 01/19/17 16:04 Alprazolam (Xanax) 1 mg PO Q4H PRN PRN Reason: Anxiety Last Admin: 11/25/16 17:08 Dose: 1 mg Ascorbic Acid (Vitamin C) 500 mg PO DAILY [facility] Stop: 01/20/17 08:59 Last Admin: 11/25/16 08:42 Dose: 500 mg Bisacodyl (Dulcolax 10 Mg Supp) 10 mg RC DAILY PRN PRN Reason: Constipation Stop: 01/19/17 16:04 Clindamycin HCl (Cleocin Hcl) 300 mg PO Q8HR LEVY Stop: 01/22/17 12:59 Last Admin: 11/26/16 04:49 Dose: 300 mg Clonazepam (Klonopin) 1 mg PO BID LEVY PRN Reason: Protocol Stop: 01/25/17 08:59 Clotrimazole (Lotrimin 1% Cream) 1 appl TP BID LEVY Stop: 01/19/17 16:59 Last Admin: 11/25/16 17:08 Dose: 1 appl Dextromethorphan/Quinidine (Nuedexta 20mg-10mg) 1 cap PO Q12HR LEVY Stop: 01/19/17 20:59 Last Admin: 11/25/16 20:21 Dose: 1 cap Diphenhydramine HCl (Benadryl) 25 mg PO Q4HR PRN PRN Reason: Agitation Stop: 01/25/17 05:43 Divalproex Sodium (Depakote Dr) 500 mg PO TID LEVY PRN Reason: Protocol Stop: 01/19/17 20:59 Last Admin: 11/25/16 20:21 Dose: 500 mg Docusate Sodium (Colace) 100 mg PO BID [facility] Stop: 01/19/17 16:59 Last Admin: 11/25/16 17:08 Dose: 100 mg Famotidine (Pepcid) 20 mg PO DAILY [facility] Stop: 01/20/17 08:59 Last Admin: 11/25/16 08:42 Dose: 20 mg Ferrous Sulfate (Iron) 325 mg PO DAILY [facility] Stop: 01/20/17 08:59 Last Admin: 11/25/16 08:43 Dose: 325 mg Folic Acid (Folate) 1 mg PO DAILY [facility] Stop: 01/20/17 08:59 Last Admin: 11/25/16 08:43 Dose: 1 mg Haloperidol (Haldol) 5 mg PO Q4HR PRN; Protocol PRN Reason: Agitation Stop: 01/25/17 07:59 Levothyroxine Sodium (Synthroid) 0.05 mg PO QDAC LEVY Stop: 01/21/17 07:29 Last Admin: 11/26/16 06:32 Dose: 0.05 mg Lorazepam (Ativan) 1 mg PO Q6HR PRN; Protocol PRN Reason: Agitation Stop: 01/23/17 10:20 Last Admin: 11/25/16 17:08 Dose: 1 mg Magnesium Hydroxide (Milk Of Magnesia) 30 ml PO PRN PRN PRN Reason: Constipation Stop: 01/19/17 16:04 Mupirocin (Bactroban Oint) 1 appl NS BID LEVY Stop: 11/27/16 17:01 Last Admin: 11/25/16 17:08 Dose: 1 appl Nystatin/Triamcinolone Acetonide (Mycolog Ii Cream) 1 appl TP TID LEVY Stop: 01/19/17 20:59 Last Admin: 11/25/16 21:56 Dose: Not Given Olanzapine (Zyprexa) 15 mg PO BID LEVY PRN Reason: Protocol Stop: 01/19/17 16:59 Last Admin: 11/25/16 17:08 Dose: 15 mg Temazepam (Restoril) 15 mg PO HS PRN; Protocol PRN Reason: Insomnia Stop: 01/19/17 20:59 Last Admin: 11/25/16 20:23 Dose: 15 mg Zinc Sulfate (Zinc Sulfate) 220 mg PO DAILY LEVY Stop: 01/20/17 08:59 Last Admin: 11/25/16 08:41 Dose: 220 mg General: Alert HEENT: Atraumatic, PERRLA, EOMI Neck: Supple Cardiovascular: Regular rate, Normal S1, Normal S2 Lungs: Clear to auscultation Abdomen: Bowel sounds Extremities: no Clubbing, no Cyanosis, no Edema Skin: Other (sore to the left hip) - Procedures Procedures: Procedures Procedure Code Date INDIVID PSYCHOTHERAP NEC 94.39 06/08/08 OTHER GROUP THERAPY 94.44 06/08/08 Assessment/Plan - Problem List Patient Problems: All Active Problems Anemia (Acute) D64.9 Anxiety (Acute) F41.9 EXTREME AGITATION AND LASHING OUT AT STA (Acute) Hyponatremia (Acute) E87.1 Hypothyroid (Acute) E03.9 Pseudobulbar affect (Acute) F48.2 Seizure (Acute) R56.9 - Assessment Assessment: Current Active Problems Problem Status Onset EXTREME AGITATION AND LASHING OUT AT STA Acute psychosis ... admit to geropsyche hyponatremia ... resolved. now normal hypothyroidism ... will start levothyroxine 50mcg PO daily seizure disorder ... stable. on depakote pseudobulbar affect disorder ... stable with medication anemia ... on ferrous sulfate. anxiety disorder Wound to left hip ... will order wound consult, start Clindamycin 300mg PO QID. surgical consult with Dr. Chino. +MRSA nares ... will order Bactroban. - Plan Plan: psychosis ... admit to geropsyche hyponatremia ... resolved. now normal hypothyroidism ... will start levothyroxine 50mcg PO daily seizure disorder ... stable. on depakote pseudobulbar affect disorder ... stable with medication anemia ... on ferrous sulfate. anxiety disorder Wound to left hip ... will order wound consult, start Clindamycin 300mg PO QID. surgical consult with Dr. Chino. +MRSA nares ... will order Bactroban. Nutritional Asmnt/Malnutr-PDOC - Dietary Evaluation Malnutrition Findings (Please click <Entered> for more info): Nutritional Asmnt/Malnutrition Start: 11/22/16 14: 44 Text: Status: Complete Freq: Document 11/23/16 18:42 [facility] (Rec: 11/23/16 18:51 [facility] [id number]) Nutritional Asmnt/Malnutrition Patient General Information Nutritional Screening Consult Diagnosis Psychosis Pertinent Medical Hx/Surgical Hx Pseudobulbar affect disorder, seizure, developmental disability, psychosis, anger, poor impulse control Subjective Information Nutrition Consult for left hip wound received and completed. Pt is a 56-year-old female from [facility] admitted with chief complaint of increased agitation and change in behavior. RD attempted nutrition assessment twice on 11/22 and 11/23. Pt is a poor historian. Current Diet Order/ Nutrition Support Mechanical soft chopped Patient / S.O Can't verbalize diet edu Pertinent Medications Vitamin C, Cleocin, Depakote, Colace, Pepcid, Iron, Folate, Zyperxa, Zinc Sulfate Pertinent Labs Reviewed Nutritional Hx/Data Height 1.68 m Height (Calculated Centimeters) 167.6 Current Weight (lbs) 72.575 kg Weight (Calculated Kilograms) 72.6 Weight (Calculated Grams) 94355.8 [place] Body Weight 130 % [place] Body Weight 123 Weight Status Approriate GI Symptoms GI Symptoms None Food Allergies No Usual diet at home Mechanical soft chopped Skin Integrity/Comment: Faisal 16. Acute on chronic left lateral hip wound. Current %PO Good (75-100%) Estimated Nutritional Goals BEE in Kcals: Using Current wt Calories/Kcals/Kg Based on current wt 72.7 kg with consideration of wound Kcals Calculated 6044-6599 kcals/day (30-35 kcals/kg) Protein: Using Current wt Protein g/kg: Based on current wt 72.7 kg with consideration of wound Protein Calculated 73-87 gm/day (1-1.2 gm/kg) Fluid: ml 8379-0931 ml/day (1 ml/klcal) Nutritional Problem 1. Problem Problem Increased protein needs related to Etiology altered skin integrity as evidenced by Signs/Symptoms: acute on chronic wound to left lateral hip, per Wound RN notes. Malnutrition Alert Protein-Calorie Malnutrition N/A Is there a minimum of two criteria No selected? Query Text:Check all the applicable criteria. A minimum of two criteria are recommended for diagnosis of either severe or non-severe malnutrition. Intervention/Recommendation Comments 1. Continue with current diet as it is adequate to meet estimated nutritional needs. 2. Continue vitamin C and zinc supplementation for wound healing. Expected Outcomes/Goals Expected Outcomes/Goals Have pt meet at least 75% of estimated nutritional needs, improved skin integrity.
[2016-11-26] MEDS: Dextromethorphan/Quinidine 20mg/10mg Cap PO SCH ×2 (08:54→21:27)
[2016-11-26] MEDS: Ferrous Sulfate 325 MG TAB PO SCH (08:55)
[2016-11-26] MEDS: Multivitamin w/ Minerals Tab PO SCH (08:55)
--- NOTE | 2016-11-26 10:05 | Consultation ---
DATE OF CONSULTATION: 11/26/2016 REFERRING PHYSICIAN: Dr. Terrazas. REASON FOR CONSULTATION: Left hip ulcer. Thank you for referring this patient to me. HISTORY OF PRESENT ILLNESS: This is a 56-year-old female from [facility] who became very combative. She was admitted to the psych unit. The patient is unable to give any information and is extremely agitated and shouting. The left hip ulcer has been present for some time ago, ____ exactly how long. All other comorbidities in this patient includes seizure disorder, hypothyroidism, anemia, anxiety disorder and psychosis. PHYSICAL EXAMINATION: Shows an ulcer in the left hip at the level of the greater trochanter and measuring about 1 cm. I am unable to probe to determine the depth of this ulcer. PLAN: We will ____ local wound care if the patient will tolerate treatment. Otherwise, ____ to be seen with ____ for this extremely agitated patient. Thank you for this consultation. JOB# [id number]
--- NOTE | 2016-11-26 20:58 | Progress Notes ---
DATE: 11/26/2016 SUBJECTIVE: The patient was seen, chart reviewed, and discussed with staff. The patient is still screaming, yelling, "I want coffee, I want coffee, I want coffee," yelling at the top of her lungs. She is still irritable, but on a positive note, she is not dangerous. She is not hitting anybody and is not throwing anything. Staff concerned about discharge at this time due to her symptoms. She is still with difficulty following direction, very childlike developmental disability noted. ASSESSMENT: The patient remains agitated, yelling, screaming, but seems less aggressive, less violent. PLAN: Titrate medications and I will also increase Depakote and also start her on Haldol. Continue Seroquel. Dr. Gomez put her on Klonopin and I am concerned about the benzodiazepine given her developmental disability. If there is no improvement, I will stop it. JOB# [id number]
[2016-11-27] MEDS: Levothyroxine 0.05 Mg Tab PO SCH (06:41)
--- NOTE | 2016-11-27 08:23 | General Progress Note ---
Subjective - Review of Systems Service Date: 11/27/16 Subjective: Awake,alert,afebrile. No acute distress. Patient seen by Dr. Chino for evaluation of wound to her left hip. Please see dictated report. Will continue current treatment. Objective - Results Result Diagrams: 11/22/16 06:40 Recent Labs: Laboratory Last Values Sodium 137 mEq/L (136-145) 11/22/16 06:40 Potassium 4.2 mEq/L (3.5-5.1) 11/22/16 06:40 Chloride 104 mEq/L (98-107) 11/22/16 06:40 Carbon Dioxide 28.8 mEq/L (21.0-31.0) 11/22/16 06:40 Anion Gap 8.4 (7.0-16.0) 11/22/16 06:40 BUN 19 mg/dL (7-25) 11/22/16 06:40 Creatinine 0.7 mg/dL (0.6-1.2) 11/22/16 06:40 Est GFR ( Amer) > 60.0 ml/min (>90) 11/22/16 06:40 Est GFR (Non-Af Amer) > 60.0 ml/min 11/22/16 06:40 BUN/Creatinine Ratio 27.1 11/22/16 06:40 Glucose 85 mg/dL (70-105) 11/22/16 06:40 Calcium 9.7 mg/dL (8.6-10.3) 11/22/16 06:40 Free T4 0.97 ng/dL (0.82-1.77) 11/20/16 13:20 Valproic Acid 65.9 ug/mL (50.0-100.0) 11/20/16 13:59 - Physical Exam Vitals and I&O: Vital Signs Temp 98.4 F 11/27/16 07:08 Pulse 91 11/27/16 07:08 Resp 20 11/27/16 07:08 BP 118/52 11/27/16 07:08 Pulse Ox 98 11/27/16 07:08 Intake & Output 11/26/16 11/27/16 11/27/16 18:59 06:59 18:59 Intake Total 1800 120 Balance 1800 120 Weight (lbs) 72.575 kg Intake: Oral 1800 120 Other: # Voids 4 1 3 # Bowel Movements 1 0 Active Medications: Current Medications Acetaminophen (Tylenol) 650 mg PO Q4H PRN PRN Reason: TEMP >100 Stop: 01/19/17 16:04 Alprazolam (Xanax) 1 mg PO Q4H PRN PRN Reason: Anxiety Last Admin: 11/25/16 17:08 Dose: 1 mg Ascorbic Acid (Vitamin C) 500 mg PO DAILY [facility] Stop: 01/20/17 08:59 Last Admin: 11/26/16 08:55 Dose: 500 mg Bisacodyl (Dulcolax 10 Mg Supp) 10 mg RC DAILY PRN PRN Reason: Constipation Stop: 01/19/17 16:04 Clindamycin HCl (Cleocin Hcl) 300 mg PO Q8HR [facility]PL[facility] Stop: 01/22/17 12:59 Last Admin: 11/27/16 06:00 Dose: 300 mg Clonazepam (Klonopin) 1 mg PO BID LEVY PRN Reason: Protocol Stop: 01/25/17 08:59 Last Admin: 11/26/16 16:51 Dose: Not Given Clotrimazole (Lotrimin 1% Cream) 1 appl TP BID [facility] Stop: 01/19/17 16:59 Last Admin: 11/26/16 16:51 Dose: Not Given Dextromethorphan/Quinidine (Nuedexta 20mg-10mg) 1 cap PO Q12HR [facility] Stop: 01/19/17 20:59 Last Admin: 11/26/16 21:27 Dose: 1 cap Diphenhydramine HCl (Benadryl) 25 mg PO Q4HR PRN PRN Reason: Agitation Stop: 01/25/17 05:43 Last Admin: 11/27/16 07:41 Dose: 25 mg Divalproex Sodium (Depakote Dr) 500 mg PO TID [facility] PRN Reason: Protocol Stop: 01/19/17 20:59 Last Admin: 11/26/16 21:28 Dose: 500 mg Divalproex Sodium (Depakote Dr) 250 mg PO DAILY [facility] PRN Reason: Protocol Stop: 01/26/17 08:59 Docusate Sodium (Colace) 100 mg PO BID [facility] BY [facility] Stop: 01/19/17 16:59 Last Admin: 11/26/16 16:51 Dose: Not Given Famotidine (Pepcid) 20 mg PO DAILY [facility] Stop: 01/20/17 08:59 Last Admin: 11/26/16 08:54 Dose: 20 mg Ferrous Sulfate (Iron) 325 mg PO DAILY L[facility]Y Stop: 01/20/17 08:59 Last Admin: 11/26/16 08:55 Dose: 325 mg Folic Acid (Folate) 1 mg PO DAILY [facility]Y Stop: 01/20/17 08:59 Last Admin: 11/26/16 08:55 Dose: 1 mg Haloperidol (Haldol) 5 mg PO Q4HR PRN; Protocol PRN Reason: Agitation Stop: 01/25/17 07:59 Last Admin: 11/27/16 07:41 Dose: 5 mg Haloperidol (Haldol) 2 mg PO BID LEVY PRN Reason: Protocol Stop: 01/25/17 16:59 Last Admin: 11/26/16 16:50 Dose: Not Given Levothyroxine Sodium (Synthroid) 0.05 mg PO QDAC LEVY Stop: 01/21/17 07:29 Last Admin: 11/27/16 06:41 Dose: 0.05 mg Lorazepam (Ativan) 1 mg PO Q6HR PRN; Protocol PRN Reason: Agitation Stop: 01/23/17 10:20 Last Admin: 11/27/16 07:41 Dose: 1 mg Magnesium Hydroxide (Milk Of Magnesia) 30 ml PO PRN PRN PRN Reason: Constipation Stop: 01/19/17 16:04 Mupirocin (Bactroban Oint) 1 appl NS BID LEVY Stop: 11/27/16 17:01 Last Admin: 11/26/16 16:51 Dose: Not Given Nystatin/Triamcinolone Acetonide (Mycolog Ii Cream) 1 appl TP TID LEVY Stop: 01/19/17 20:59 Last Admin: 11/26/16 21:31 Dose: Not Given Olanzapine (Zyprexa) 15 mg PO BID LEVY PRN Reason: Protocol Stop: 01/25/17 16:59 Last Admin: 11/26/16 16:51 Dose: Not Given Temazepam (Restoril) 15 mg PO HS PRN; Protocol PRN Reason: Insomnia Stop: 01/19/17 20:59 Last Admin: 11/25/16 20:23 Dose: 15 mg Zinc Sulfate (Zinc Sulfate) 220 mg PO DAILY [facility] BY [facility] Stop: 01/20/17 08:59 Last Admin: 11/26/16 08:55 Dose: 220 mg General: Alert HEENT: Atraumatic, PERRLA, EOMI Neck: Supple Cardiovascular: Regular rate, Normal S1, Normal S2 Lungs: Clear to auscultation Abdomen: Bowel sounds Extremities: no Clubbing, no Cyanosis, no Edema Skin: Other (sore to the left hip) - Procedures Procedures: Procedures Procedure Code Date INDIVID PSYCHOTHERAP NEC 94.39 06/08/08 OTHER GROUP THERAPY 94.44 06/08/08 Assessment/Plan - Problem List Patient Problems: All Active Problems Anemia (Acute) D64.9 Anxiety (Acute) F41.9 EXTREME AGITATION AND LASHING OUT AT STA (Acute) Hyponatremia (Acute) E87.1 Hypothyroid (Acute) E03.9 Pseudobulbar affect (Acute) F48.2 Seizure (Acute) R56.9 - Assessment Assessment: Current Active Problems Problem Status Onset EXTREME AGITATION AND LASHING OUT AT STA Acute psychosis ... admit to geropsyche hyponatremia ... resolved. now normal hypothyroidism ... will start levothyroxine 50mcg PO daily seizure disorder ... stable. on depakote pseudobulbar affect disorder ... stable with medication anemia ... on ferrous sulfate. anxiety disorder Wound to left hip ... will order wound consult, start Clindamycin 300mg PO QID. will continue current treatment. +MRSA nares ... will order Bactroban. - Plan Plan: psychosis ... admit to geropsyche hyponatremia ... resolved. now normal hypothyroidism ... will start levothyroxine 50mcg PO daily seizure disorder ... stable. on depakote pseudobulbar affect disorder ... stable with medication anemia ... on ferrous sulfate. anxiety disorder Wound to left hip ... will order wound consult, start Clindamycin 300mg PO QID. surgical consult with Dr. Chino. +MRSA nares ... will order Bactroban. Nutritional Asmnt/Malnutr-PDOC - Dietary Evaluation Malnutrition Findings (Please click <Entered> for more info): Nutritional Asmnt/Malnutrition Start: 11/22/16 14: 44 Text: Status: Complete Freq: Document 11/23/16 18:42 [facility] (Rec: 11/23/16 18:51 [id number]) Nutritional Asmnt/Malnutrition Patient General Information Nutritional Screening Consult Diagnosis Psychosis Pertinent Medical Hx/Surgical Hx Pseudobulbar affect disorder, seizure, developmental disability, psychosis, anger, poor impulse control Subjective Information Nutrition Consult for left hip wound received and completed. Pt is a 56-year-old female from [facility] admitted with chief complaint of increased agitation and change in behavior. RD attempted nutrition assessment twice on 11/22 and 11/23. Pt is a poor historian. Current Diet Order/ Nutrition Support Mechanical soft chopped Patient / S.O Can't verbalize diet edu Pertinent Medications Vitamin C, Cleocin, Depakote, Colace, Pepcid, Iron, Folate, Zyperxa, Zinc Sulfate Pertinent Labs Reviewed Nutritional Hx/Data Height 1.68 m Height (Calculated Centimeters) 167.6 Current Weight (lbs) 72.575 kg Weight (Calculated Kilograms) 72.6 Weight (Calculated Grams) 74393.8 [place] Body Weight 130 % [place] Body Weight 123 Weight Status Approriate GI Symptoms GI Symptoms None Food Allergies No Usual diet at home Mechanical soft chopped Skin Integrity/Comment: Faisal 16. Acute on chronic left lateral hip wound. Current %PO Good (75-100%) Estimated Nutritional Goals BEE in Kcals: Using Current wt Calories/Kcals/Kg Based on current wt 72.7 kg with consideration of wound Kcals Calculated 0265-9726 kcals/day (30-35 kcals/kg) Protein: Using Current wt Protein g/kg: Based on current wt 72.7 kg with consideration of wound Protein Calculated 73-87 gm/day (1-1.2 gm/kg) Fluid: ml 8711-5311 ml/day (1 ml/klcal) Nutritional Problem 1. Problem Problem Increased protein needs related to Etiology altered skin integrity as evidenced by Signs/Symptoms: acute on chronic wound to left lateral hip, per Wound RN notes. Malnutrition Alert Protein-Calorie Malnutrition N/A Is there a minimum of two criteria No selected? Query Text:Check all the applicable criteria. A minimum of two criteria are recommended for diagnosis of either severe or non-severe malnutrition. Intervention/Recommendation Comments 1. Continue with current diet as it is adequate to meet estimated nutritional needs. 2. Continue vitamin C and zinc supplementation for wound healing. Expected Outcomes/Goals Expected Outcomes/Goals Have pt meet at least 75% of estimated nutritional needs, improved skin integrity.
[2016-11-27] MEDS: Ferrous Sulfate 325 MG TAB PO SCH (09:09)
[2016-11-27] MEDS: Dextromethorphan/Quinidine 20mg/10mg Cap PO SCH ×2 (09:09→20:58)
[2016-11-27] MEDS: Multivitamin w/ Minerals Tab PO SCH (09:10)
--- NOTE | 2016-11-27 19:56 | Progress Notes ---
DATE: 11/27/2016 SUBJECTIVE: The patient seen, chart reviewed, discussed with staff. The patient is yelling, screaming, very loud, intrusive. Staff noting a mild improvement, seems to be yelling less, still with noted escalations, but no aggressive behavior. She is not violent for example. Seems to be tolerating her medications well without any overt side effects, tolerating increased dose of Haldol for example, which might be making an improvement. ASSESSMENT: The patient is yelling, screaming, gravely disabled, cannot care for herself, and we are having difficulty placing her due to the ongoing issues involving her behaviors. We will monitor closely. She remains psychotic and disorganized. [facility]# [id number]
[2016-11-28] MEDS: Levothyroxine 0.05 Mg Tab PO SCH (06:43)
--- NOTE | 2016-11-28 08:12 | General Progress Note ---
Subjective - Review of Systems Service Date: 11/28/16 Subjective: Awake,alert,afebrile. No acute distress. Patient seen by Dr. Chino for evaluation of wound to her left hip. Please see dictated report. Will continue current treatment. Objective - Results Result Diagrams: 11/22/16 06:40 Recent Labs: Laboratory Last Values Sodium 137 mEq/L (136-145) 11/22/16 06:40 Potassium 4.2 mEq/L (3.5-5.1) 11/22/16 06:40 Chloride 104 mEq/L (98-107) 11/22/16 06:40 Carbon Dioxide 28.8 mEq/L (21.0-31.0) 11/22/16 06:40 Anion Gap 8.4 (7.0-16.0) 11/22/16 06:40 BUN 19 mg/dL (7-25) 11/22/16 06:40 Creatinine 0.7 mg/dL (0.6-1.2) 11/22/16 06:40 Est GFR ( Amer) > 60.0 ml/min (>90) 11/22/16 06:40 Est GFR (Non-Af Amer) > 60.0 ml/min 11/22/16 06:40 BUN/Creatinine Ratio 27.1 11/22/16 06:40 Glucose 85 mg/dL (70-105) 11/22/16 06:40 Calcium 9.7 mg/dL (8.6-10.3) 11/22/16 06:40 Free T4 0.97 ng/dL (0.82-1.77) 11/20/16 13:20 Valproic Acid 65.9 ug/mL (50.0-100.0) 11/20/16 13:59 - Physical Exam Vitals and I&O: Vital Signs Temp 97.9 F 11/28/16 05:11 Pulse 67 11/28/16 05:11 Resp 20 11/28/16 05:11 BP 95/55 11/28/16 05:11 Pulse Ox 97 11/28/16 05:11 Intake & Output 11/27/16 11/28/16 11/28/16 18:59 06:59 18:59 Intake Total 240 Balance 240 Weight (lbs) 72.575 kg 72.575 kg Intake: Oral 240 Other: # Voids 3 2 # Bowel Movements 0 0 Active Medications: Current Medications Acetaminophen (Tylenol) 650 mg PO Q4H PRN PRN Reason: TEMP >100 Stop: 01/19/17 16:04 Alprazolam (Xanax) 1 mg PO Q4H PRN PRN Reason: Anxiety Last Admin: 11/28/16 00:54 Dose: 1 mg Ascorbic Acid (Vitamin C) 500 mg PO DAILY LEVY Stop: 01/20/17 08:59 Last Admin: 11/27/16 09:09 Dose: 500 mg Bisacodyl (Dulcolax 10 Mg Supp) 10 mg RC DAILY PRN PRN Reason: Constipation Stop: 01/19/17 16:04 Clindamycin HCl (Cleocin Hcl) 300 mg PO Q8HR LEVY Stop: 01/22/17 12:59 Last Admin: 11/28/16 05:17 Dose: 300 mg Clonazepam (Klonopin) 1 mg PO BID LEVY PRN Reason: Protocol Stop: 01/25/17 08:59 Last Admin: 11/27/16 17:07 Dose: 1 mg Clotrimazole (Lotrimin 1% Cream) 1 appl TP BID [facility] Stop: 01/19/17 16:59 Last Admin: 11/27/16 17:08 Dose: 1 appl Dextromethorphan/Quinidine (Nuedexta 20mg-10mg) 1 cap PO Q12HR LEVY Stop: 01/19/17 20:59 Last Admin: 11/27/16 20:58 Dose: 1 cap Diphenhydramine HCl (Benadryl) 25 mg PO Q4HR PRN PRN Reason: Agitation Stop: 01/25/17 05:43 Last Admin: 11/27/16 17:08 Dose: 25 mg Divalproex Sodium (Depakote Dr) 500 mg PO TID LEVY PRN Reason: Protocol Stop: 01/19/17 20:59 Last Admin: 11/27/16 20:58 Dose: 500 mg Divalproex Sodium (Depakote Dr) 250 mg PO DAILY LEVY PRN Reason: Protocol Stop: 01/26/17 08:59 Last Admin: 11/27/16 09:10 Dose: 250 mg Docusate Sodium (Colace) 100 mg PO BID [facility] Stop: 01/19/17 16:59 Last Admin: 11/27/16 17:08 Dose: 100 mg Famotidine (Pepcid) 20 mg PO DAILY LEVY Stop: 01/20/17 08:59 Last Admin: 11/27/16 09:10 Dose: 20 mg Ferrous Sulfate (Iron) 325 mg PO DAILY LEVY Stop: 01/20/17 08:59 Last Admin: 11/27/16 09:09 Dose: 325 mg Folic Acid (Folate) 1 mg PO DAILY LEVY Stop: 01/20/17 08:59 Last Admin: 11/27/16 09:10 Dose: 1 mg Haloperidol (Haldol) 5 mg PO Q4HR PRN; Protocol PRN Reason: Agitation Stop: 01/25/17 07:59 Last Admin: 11/27/16 12:02 Dose: 5 mg Haloperidol (Haldol) 3 mg PO BID LEVY PRN Reason: Protocol Stop: 01/26/17 15:16 Last Admin: 11/27/16 17:07 Dose: 3 mg Levothyroxine Sodium (Synthroid) 0.05 mg PO QDAC LEVY Stop: 01/21/17 07:29 Last Admin: 11/28/16 06:43 Dose: 0.05 mg Lorazepam (Ativan) 1 mg PO Q6HR PRN; Protocol PRN Reason: Agitation Stop: 01/23/17 10:20 Last Admin: 11/27/16 14:36 Dose: 1 mg Magnesium Hydroxide (Milk Of Magnesia) 30 ml PO PRN PRN PRN Reason: Constipation Stop: 01/19/17 16:04 Nystatin/Triamcinolone Acetonide (Mycolog Ii Cream) 1 appl TP TID [facility]EVY Stop: 01/19/17 20:59 Last Admin: 11/27/16 21:00 Dose: 1 appl Olanzapine (Zyprexa) 15 mg PO BID LEVY PRN Reason: Protocol Stop: 01/25/17 16:59 Last Admin: 11/27/16 17:08 Dose: 15 mg Temazepam (Restoril) 15 mg PO HS PRN; Protocol PRN Reason: Insomnia Stop: 01/19/17 20:59 Last Admin: 11/25/16 20:23 Dose: 15 mg Zinc Sulfate (Zinc Sulfate) 220 mg PO DAILY LEVY Stop: 01/20/17 08:59 Last Admin: 11/27/16 09:09 Dose: 220 mg General: Alert HEENT: Atraumatic, PERRLA, EOMI Neck: Supple Cardiovascular: Regular rate, Normal S1, Normal S2 Lungs: Clear to auscultation Abdomen: Bowel sounds Extremities: no Clubbing, no Cyanosis, no Edema Skin: Other (sore to the left hip) - Procedures Procedures: Procedures Procedure Code Date INDIVID PSYCHOTHERAP NEC 94.39 06/08/08 OTHER GROUP THERAPY 94.44 06/08/08 Assessment/Plan - Problem List Patient Problems: All Active Problems Anemia (Acute) D64.9 Anxiety (Acute) F41.9 EXTREME AGITATION AND LASHING OUT AT STA (Acute) Hyponatremia (Acute) E87.1 Hypothyroid (Acute) E03.9 Pseudobulbar affect (Acute) F48.2 Seizure (Acute) R56.9 - Assessment Assessment: Current Active Problems Problem Status Onset EXTREME AGITATION AND LASHING OUT AT STA Acute psychosis ... admit to geropsyche hyponatremia ... resolved. now normal hypothyroidism ... will start levothyroxine 50mcg PO daily seizure disorder ... stable. on depakote pseudobulbar affect disorder ... stable with medication anemia ... on ferrous sulfate. anxiety disorder Wound to left hip ... will order wound consult, start Clindamycin 300mg PO QID. will continue current treatment. +MRSA nares ... will order Bactroban. - Plan Plan: psychosis ... admit to geropsyche hyponatremia ... resolved. now normal hypothyroidism ... will start levothyroxine 50mcg PO daily seizure disorder ... stable. on depakote pseudobulbar affect disorder ... stable with medication anemia ... on ferrous sulfate. anxiety disorder Wound to left hip ... will order wound consult, start Clindamycin 300mg PO QID. surgical consult with Dr. Chino. +MRSA nares ... will order Bactroban. Nutritional Asmnt/Malnutr-PDOC - Dietary Evaluation Malnutrition Findings (Please click <Entered> for more info): Nutritional Asmnt/Malnutrition Start: 11/22/16 14: 44 Text: Status: Complete Freq: Document 11/23/16 18:42 [facility] (Rec: 11/23/16 18:51 [facility] [id number]) Nutritional Asmnt/Malnutrition Patient General Information Nutritional Screening Consult Diagnosis Psychosis Pertinent Medical Hx/Surgical Hx Pseudobulbar affect disorder, seizure, developmental disability, psychosis, anger, poor impulse control Subjective Information Nutrition Consult for left hip wound received and completed. Pt is a 56-year-old female from [facility] admitted with chief complaint of increased agitation and change in behavior. RD attempted nutrition assessment twice on 11/22 and 11/23. Pt is a poor historian. Current Diet Order/ Nutrition Support Mechanical soft chopped Patient / S.O Can't verbalize diet edu Pertinent Medications Vitamin C, Cleocin, Depakote, Colace, Pepcid, Iron, Folate, Zyperxa, Zinc Sulfate Pertinent Labs Reviewed Nutritional Hx/Data Height 1.68 m Height (Calculated Centimeters) 167.6 Current Weight (lbs) 72.575 kg Weight (Calculated Kilograms) 72.6 Weight (Calculated Grams) 19860.8 [place] Body Weight 130 % [place] Body Weight 123 Weight Status Approriate GI Symptoms GI Symptoms None Food Allergies No Usual diet at home Mechanical soft chopped Skin Integrity/Comment: Faisal 16. Acute on chronic left lateral hip wound. Current %PO Good (75-100%) Estimated Nutritional Goals BEE in Kcals: Using Current wt Calories/Kcals/Kg Based on current wt 72.7 kg with consideration of wound Kcals Calculated 9760-9030 kcals/day (30-35 kcals/kg) Protein: Using Current wt Protein g/kg: Based on current wt 72.7 kg with consideration of wound Protein Calculated 73-87 gm/day (1-1.2 gm/kg) Fluid: ml 5519-4998 ml/day (1 ml/klcal) Nutritional Problem 1. Problem Problem Increased protein needs related to Etiology altered skin integrity as evidenced by Signs/Symptoms: acute on chronic wound to left lateral hip, per Wound RN notes. Malnutrition Alert Protein-Calorie Malnutrition N/A Is there a minimum of two criteria No selected? Query Text:Check all the applicable criteria. A minimum of two criteria are recommended for diagnosis of either severe or non-severe malnutrition. Intervention/Recommendation Comments 1. Continue with current diet as it is adequate to meet estimated nutritional needs. 2. Continue vitamin C and zinc supplementation for wound healing. Expected Outcomes/Goals Expected Outcomes/Goals Have pt meet at least 75% of estimated nutritional needs, improved skin integrity.
[2016-11-28] MEDS: Multivitamin w/ Minerals Tab PO SCH (08:51)
[2016-11-28] MEDS: Ferrous Sulfate 325 MG TAB PO SCH (08:51)
[2016-11-28] MEDS: Dextromethorphan/Quinidine 20mg/10mg Cap PO SCH ×2 (08:52→20:40)
--- NOTE | 2016-11-28 21:27 | Progress Notes ---
DATE: 11/28/2016 SUBJECTIVE: The patient seen, chart reviewed, discussed with staff. The patient remains symptomatic, still with the yelling episodes, screaming episodes. Staff noting his Haldol has been titrated, they have noticed an improvement. Less yelling episodes, less screaming episodes, less aggression, less agitation, more redirectable. She is tolerating the medications, tolerating the Haldol. No overt side effects, no EPS noted. ASSESSMENT: The patient remains yelling, screaming, symptomatic, still somewhat aggressive at times psychomotorically accelerated, but improvement noted. PLAN: Continue to monitor and titrate Haldol over the next few days. JOB# [id number]
[2016-11-29] MEDS: Levothyroxine 0.05 Mg Tab PO SCH (06:38)
--- NOTE | 2016-11-29 08:06 | General Progress Note ---
Subjective - Review of Systems Service Date: 11/29/16 Subjective: Awake,alert,afebrile. No acute distress. Patient seen by Dr. Cihno for evaluation of wound to her left hip. Please see dictated report. Will continue current treatment. Objective - Results Result Diagrams: 11/22/16 06:40 Recent Labs: Laboratory Last Values Sodium 137 mEq/L (136-145) 11/22/16 06:40 Potassium 4.2 mEq/L (3.5-5.1) 11/22/16 06:40 Chloride 104 mEq/L (98-107) 11/22/16 06:40 Carbon Dioxide 28.8 mEq/L (21.0-31.0) 11/22/16 06:40 Anion Gap 8.4 (7.0-16.0) 11/22/16 06:40 BUN 19 mg/dL (7-25) 11/22/16 06:40 Creatinine 0.7 mg/dL (0.6-1.2) 11/22/16 06:40 Est GFR ( Amer) > 60.0 ml/min (>90) 11/22/16 06:40 Est GFR (Non-Af Amer) > 60.0 ml/min 11/22/16 06:40 BUN/Creatinine Ratio 27.1 11/22/16 06:40 Glucose 85 mg/dL (70-105) 11/22/16 06:40 Calcium 9.7 mg/dL (8.6-10.3) 11/22/16 06:40 Free T4 0.97 ng/dL (0.82-1.77) 11/20/16 13:20 Valproic Acid 65.9 ug/mL (50.0-100.0) 11/20/16 13:59 - Physical Exam Vitals and I&O: Vital Signs Temp 97.8 F 11/29/16 06:55 Pulse 81 11/29/16 06:55 Resp 19 11/29/16 06:55 BP 132/76 11/29/16 06:55 Pulse Ox 97 11/29/16 06:55 Intake & Output 11/28/16 11/29/16 11/29/16 18:59 06:59 18:59 Intake Total 1000 120 Balance 1000 120 Intake: Oral 1000 120 Other: # Voids 2 3 # Bowel Movements 1 Active Medications: Current Medications Acetaminophen (Tylenol) 650 mg PO Q4H PRN PRN Reason: TEMP >100 Stop: 01/19/17 16:04 Alprazolam (Xanax) 1 mg PO Q4H PRN PRN Reason: Anxiety Last Admin: 11/28/16 00:54 Dose: 1 mg Ascorbic Acid (Vitamin C) 500 mg PO DAILY [facility] Stop: 01/20/17 08:59 Last Admin: 11/28/16 08:51 Dose: 500 mg Bisacodyl (Dulcolax 10 Mg Supp) 10 mg RC DAILY PRN PRN Reason: Constipation Stop: 01/19/17 16:04 Clindamycin HCl (Cleocin Hcl) 300 mg PO Q8HR [facility]Y Stop: 01/22/17 12:59 Last Admin: 11/29/16 05:00 Dose: 300 mg Clonazepam (Klonopin) 1 mg PO BID LEVY PRN Reason: Protocol Stop: 01/25/17 08:59 Last Admin: 11/28/16 16:29 Dose: 1 mg Clotrimazole (Lotrimin 1% Cream) 1 appl TP BID [facility] Stop: 01/19/17 16:59 Last Admin: 11/28/16 16:29 Dose: 1 appl Dextromethorphan/Quinidine (Nuedexta 20mg-10mg) 1 cap PO Q12HR [facility] Stop: 01/19/17 20:59 Last Admin: 11/28/16 20:40 Dose: 1 cap Diphenhydramine HCl (Benadryl) 25 mg PO Q4HR PRN PRN Reason: Agitation Stop: 01/25/17 05:43 Last Admin: 11/27/16 17:08 Dose: 25 mg Divalproex Sodium (Depakote Dr) 500 mg PO TID [facility]EVY PRN Reason: Protocol Stop: 01/19/17 20:59 Last Admin: 11/28/16 20:39 Dose: 500 mg Divalproex Sodium (Depakote Dr) 250 mg PO DAILY LEVY PRN Reason: Protocol Stop: 01/26/17 08:59 Last Admin: 11/28/16 08:50 Dose: 250 mg Docusate Sodium (Colace) 100 mg PO BID [facility]Y Stop: 01/19/17 16:59 Last Admin: 11/28/16 16:29 Dose: 100 mg Famotidine (Pepcid) 20 mg PO DAILY [facility]EVY Stop: 01/20/17 08:59 Last Admin: 11/28/16 08:51 Dose: 20 mg Ferrous Sulfate (Iron) 325 mg PO DAILY LEVY Stop: 01/20/17 08:59 Last Admin: 11/28/16 08:51 Dose: 325 mg Folic Acid (Folate) 1 mg PO DAILY LEVY Stop: 01/20/17 08:59 Last Admin: 11/28/16 08:51 Dose: 1 mg Haloperidol (Haldol) 5 mg PO Q4HR PRN; Protocol PRN Reason: Agitation Stop: 01/25/17 07:59 Last Admin: 11/27/16 12:02 Dose: 5 mg Haloperidol (Haldol) 3 mg PO BID LEVY PRN Reason: Protocol Stop: 01/26/17 15:16 Last Admin: 11/28/16 16:29 Dose: 3 mg Levothyroxine Sodium (Synthroid) 0.05 mg PO QDAC LEVY Stop: 01/21/17 07:29 Last Admin: 11/29/16 06:38 Dose: 0.05 mg Lorazepam (Ativan) 1 mg PO Q6HR PRN; Protocol PRN Reason: Agitation Stop: 01/23/17 10:20 Last Admin: 11/27/16 14:36 Dose: 1 mg Magnesium Hydroxide (Milk Of Magnesia) 30 ml PO PRN PRN PRN Reason: Constipation Stop: 01/19/17 16:04 Nystatin/Triamcinolone Acetonide (Mycolog Ii Cream) 1 appl TP TID LEVY Stop: 01/19/17 20:59 Last Admin: 11/28/16 20:36 Dose: 1 appl Olanzapine (Zyprexa) 15 mg PO BID LEVY PRN Reason: Protocol Stop: 01/25/17 16:59 Last Admin: 11/28/16 16:29 Dose: 15 mg Temazepam (Restoril) 15 mg PO HS PRN; Protocol PRN Reason: Insomnia Stop: 01/19/17 20:59 Last Admin: 11/25/16 20:23 Dose: 15 mg Zinc Sulfate (Zinc Sulfate) 220 mg PO DAILY [facility]EVY Stop: 01/20/17 08:59 Last Admin: 11/28/16 08:51 Dose: 220 mg General: Alert HEENT: Atraumatic, PERRLA, EOMI Neck: Supple Cardiovascular: Regular rate, Normal S1, Normal S2 Lungs: Clear to auscultation Abdomen: Bowel sounds Extremities: no Clubbing, no Cyanosis, no Edema Skin: Other (sore to the left hip) - Procedures Procedures: Procedures Procedure Code Date INDIVID PSYCHOTHERAP NEC 94.39 06/08/08 OTHER GROUP THERAPY 94.44 06/08/08 Assessment/Plan - Problem List Patient Problems: All Active Problems Anemia (Acute) D64.9 Anxiety (Acute) F41.9 EXTREME AGITATION AND LASHING OUT AT STA (Acute) Hyponatremia (Acute) E87.1 Hypothyroid (Acute) E03.9 Pseudobulbar affect (Acute) F48.2 Seizure (Acute) R56.9 - Assessment Assessment: Current Active Problems Problem Status Onset EXTREME AGITATION AND LASHING OUT AT STA Acute psychosis ... admit to geropsyche hyponatremia ... resolved. now normal hypothyroidism ... will start levothyroxine 50mcg PO daily seizure disorder ... stable. on depakote pseudobulbar affect disorder ... stable with medication anemia ... on ferrous sulfate. anxiety disorder Wound to left hip ... will order wound consult, start Clindamycin 300mg PO QID. will continue current treatment. +MRSA nares ... will order Bactroban. - Plan Plan: psychosis ... admit to geropsyche hyponatremia ... resolved. now normal hypothyroidism ... will start levothyroxine 50mcg PO daily seizure disorder ... stable. on depakote pseudobulbar affect disorder ... stable with medication anemia ... on ferrous sulfate. anxiety disorder Wound to left hip ... will order wound consult, start Clindamycin 300mg PO QID. surgical consult with Dr. Chino. +MRSA nares ... will order Bactroban. Nutritional Asmnt/Malnutr-PDOC - Dietary Evaluation Malnutrition Findings (Please click <Entered> for more info): Nutritional Asmnt/Malnutrition Start: 11/22/16 14: 44 Text: Status: Complete Freq: Document 11/23/16 18:42 [facility] (Rec: 11/23/16 18:51 [facility] [id number]) Nutritional Asmnt/Malnutrition Patient General Information Nutritional Screening Consult Diagnosis Psychosis Pertinent Medical Hx/Surgical Hx Pseudobulbar affect disorder, seizure, developmental disability, psychosis, anger, poor impulse control Subjective Information Nutrition Consult for left hip wound received and completed. Pt is a 56-year-old female from [facility] admitted with chief complaint of increased agitation and change in behavior. RD attempted nutrition assessment twice on 11/22 and 11/23. Pt is a poor historian. Current Diet Order/ Nutrition Support Mechanical soft chopped Patient / S.O Can't verbalize diet edu Pertinent Medications Vitamin C, Cleocin, Depakote, Colace, Pepcid, Iron, Folate, Zyperxa, Zinc Sulfate Pertinent Labs Reviewed Nutritional Hx/Data Height 1.68 m Height (Calculated Centimeters) 167.6 Current Weight (lbs) 72.575 kg Weight (Calculated Kilograms) 72.6 Weight (Calculated Grams) 72870.8 [place] Body Weight 130 % [place] Body Weight 123 Weight Status Approriate GI Symptoms GI Symptoms None Food Allergies No Usual diet at home Mechanical soft chopped Skin Integrity/Comment: Faisal 16. Acute on chronic left lateral hip wound. Current %PO Good (75-100%) Estimated Nutritional Goals BEE in Kcals: Using Current wt Calories/Kcals/Kg Based on current wt 72.7 kg with consideration of wound Kcals Calculated 4219-0427 kcals/day (30-35 kcals/kg) Protein: Using Current wt Protein g/kg: Based on current wt 72.7 kg with consideration of wound Protein Calculated 73-87 gm/day (1-1.2 gm/kg) Fluid: ml 2169-4439 ml/day (1 ml/klcal) Nutritional Problem 1. Problem Problem Increased protein needs related to Etiology altered skin integrity as evidenced by Signs/Symptoms: acute on chronic wound to left lateral hip, per Wound RN notes. Malnutrition Alert Protein-Calorie Malnutrition N/A Is there a minimum of two criteria No selected? Query Text:Check all the applicable criteria. A minimum of two criteria are recommended for diagnosis of either severe or non-severe malnutrition. Intervention/Recommendation Comments 1. Continue with current diet as it is adequate to meet estimated nutritional needs. 2. Continue vitamin C and zinc supplementation for wound healing. Expected Outcomes/Goals Expected Outcomes/Goals Have pt meet at least 75% of estimated nutritional needs, improved skin integrity.
[2016-11-29] MEDS: Multivitamin w/ Minerals Tab PO SCH (09:19)
[2016-11-29] MEDS: Ferrous Sulfate 325 MG TAB PO SCH (09:21)
[2016-11-29] MEDS: Dextromethorphan/Quinidine 20mg/10mg Cap PO SCH ×2 (09:21→21:00)
--- NOTE | 2016-11-30 01:17 | Progress Notes ---
DATE: 11/29/2016 SUBJECTIVE: The patient seen, chart reviewed, discussed with staff. The patient remains symptomatic, still with yelling episodes, screaming episodes, decrease in her agitation and violent behaviors, but she still remains labile, loud, intrusive, difficult to redirect and control also gravely disabled. On a positive note she is taking her medications, no side effects noted. ASSESSMENT: The patient remains symptomatic, difficult to control behaviors, yelling, screaming, and psychosis. PLAN: Continue to monitor and titrate medications. JOB# [id number]
[2016-11-30] MEDS: Levothyroxine 0.05 Mg Tab PO SCH (06:49)
--- NOTE | 2016-11-30 08:05 | General Progress Note ---
Subjective - Review of Systems Service Date: 11/30/16 Subjective: Awake,alert,afebrile. No acute distress. Patient seen by Dr. Chino for evaluation of wound to her left hip. Please see dictated report. Will continue current treatment. Objective - Results Result Diagrams: 11/22/16 06:40 Recent Labs: Laboratory Last Values Sodium 137 mEq/L (136-145) 11/22/16 06:40 Potassium 4.2 mEq/L (3.5-5.1) 11/22/16 06:40 Chloride 104 mEq/L (98-107) 11/22/16 06:40 Carbon Dioxide 28.8 mEq/L (21.0-31.0) 11/22/16 06:40 Anion Gap 8.4 (7.0-16.0) 11/22/16 06:40 BUN 19 mg/dL (7-25) 11/22/16 06:40 Creatinine 0.7 mg/dL (0.6-1.2) 11/22/16 06:40 Est GFR ( Amer) > 60.0 ml/min (>90) 11/22/16 06:40 Est GFR (Non-Af Amer) > 60.0 ml/min 11/22/16 06:40 BUN/Creatinine Ratio 27.1 11/22/16 06:40 Glucose 85 mg/dL (70-105) 11/22/16 06:40 Calcium 9.7 mg/dL (8.6-10.3) 11/22/16 06:40 Free T4 0.97 ng/dL (0.82-1.77) 11/20/16 13:20 Valproic Acid 65.9 ug/mL (50.0-100.0) 11/20/16 13:59 - Physical Exam Vitals and I&O: Vital Signs Temp 97.6 F 11/29/16 14:00 Pulse 78 11/29/16 14:00 Resp 18 11/29/16 20:00 BP 128/74 11/29/16 14:00 Pulse Ox 98 11/29/16 14:00 Intake & Output 11/29/16 11/30/16 11/30/16 18:59 06:59 18:59 Intake Total 1000 Balance 1000 Intake: Oral 1000 Other: # Voids 3 # Bowel Movements 1 Active Medications: Current Medications Acetaminophen (Tylenol) 650 mg PO Q4H PRN PRN Reason: TEMP >100 Stop: 01/19/17 16:04 Alprazolam (Xanax) 1 mg PO Q4H PRN PRN Reason: Anxiety Last Admin: 11/28/16 00:54 Dose: 1 mg Ascorbic Acid (Vitamin C) 500 mg PO DAILY LEVY Stop: 01/20/17 08:59 Last Admin: 11/29/16 09:19 Dose: 500 mg Bisacodyl (Dulcolax 10 Mg Supp) 10 mg RC DAILY PRN PRN Reason: Constipation Stop: 01/19/17 16:04 Clindamycin HCl (Cleocin Hcl) 300 mg PO Q8HR LEVY Stop: 01/22/17 12:59 Last Admin: 11/30/16 05:45 Dose: 300 mg Clonazepam (Klonopin) 1 mg PO BID LEVY PRN Reason: Protocol Stop: 01/25/17 08:59 Last Admin: 11/29/16 17:44 Dose: 1 mg Clotrimazole (Lotrimin 1% Cream) 1 appl TP BID LEVY Stop: 01/19/17 16:59 Last Admin: 11/29/16 17:44 Dose: 1 appl Dextromethorphan/Quinidine (Nuedexta 20mg-10mg) 1 cap PO Q12HR LEVY Stop: 01/19/17 20:59 Last Admin: 11/29/16 21:00 Dose: 1 cap Diphenhydramine HCl (Benadryl) 25 mg PO Q4HR PRN PRN Reason: Agitation Stop: 01/25/17 05:43 Last Admin: 11/27/16 17:08 Dose: 25 mg Docusate Sodium (Colace) 100 mg PO BID [facility] Stop: 01/19/17 16:59 Last Admin: 11/29/16 17:45 Dose: 100 mg Famotidine (Pepcid) 20 mg PO DAILY [facility] Stop: 01/20/17 08:59 Last Admin: 11/29/16 09:25 Dose: 20 mg Ferrous Sulfate (Iron) 325 mg PO DAILY [facility] Stop: 01/20/17 08:59 Last Admin: 11/29/16 09:21 Dose: 325 mg Folic Acid (Folate) 1 mg PO DAILY [facility] Stop: 01/20/17 08:59 Last Admin: 11/29/16 09:26 Dose: 1 mg Haloperidol (Haldol) 5 mg PO Q4HR PRN; Protocol PRN Reason: Agitation Stop: 01/25/17 07:59 Last Admin: 11/27/16 12:02 Dose: 5 mg Haloperidol (Haldol) 3 mg PO BID LEVY PRN Reason: Protocol Stop: 01/26/17 15:16 Last Admin: 11/29/16 17:45 Dose: 3 mg Levothyroxine Sodium (Synthroid) 0.05 mg PO QDAC LEVY Stop: 01/21/17 07:29 Last Admin: 11/30/16 06:49 Dose: 0.05 mg Lorazepam (Ativan) 1 mg PO Q6HR PRN; Protocol PRN Reason: Agitation Stop: 01/23/17 10:20 Last Admin: 11/29/16 10:42 Dose: 1 mg Magnesium Hydroxide (Milk Of Magnesia) 30 ml PO PRN PRN PRN Reason: Constipation Stop: 01/19/17 16:04 Nystatin/Triamcinolone Acetonide (Mycolog Ii Cream) 1 appl TP TID LEVY Stop: 01/19/17 20:59 Last Admin: 11/29/16 21:00 Dose: 1 appl Olanzapine (Zyprexa) 15 mg PO BID LEVY PRN Reason: Protocol Stop: 01/25/17 16:59 Last Admin: 11/29/16 17:46 Dose: 15 mg Temazepam (Restoril) 15 mg PO HS PRN; Protocol PRN Reason: Insomnia Stop: 01/19/17 20:59 Last Admin: 11/29/16 22:52 Dose: 15 mg Valproate Sodium (Depakene) 750 mg PO DAILY LEVY PRN Reason: Protocol Stop: 01/29/17 08:59 Valproate Sodium (Depakene) 500 mg PO 1400,2100 LEVY PRN Reason: Protocol Stop: 01/28/17 13:59 Last Admin: 11/29/16 21:00 Dose: 500 mg Zinc Sulfate (Zinc Sulfate) 220 mg PO DAILY LEVY Stop: 01/20/17 08:59 Last Admin: 11/29/16 09:20 Dose: 220 mg General: Alert HEENT: Atraumatic, PERRLA, EOMI Neck: Supple Cardiovascular: Regular rate, Normal S1, Normal S2 Lungs: Clear to auscultation Abdomen: Bowel sounds Extremities: no Clubbing, no Cyanosis, no Edema Skin: Other (sore to the left hip) - Procedures Procedures: Procedures Procedure Code Date INDIVID PSYCHOTHERAP NEC 94.39 06/08/08 OTHER GROUP THERAPY 94.44 06/08/08 Assessment/Plan - Problem List Patient Problems: All Active Problems Anemia (Acute) D64.9 Anxiety (Acute) F41.9 EXTREME AGITATION AND LASHING OUT AT STA (Acute) Hyponatremia (Acute) E87.1 Hypothyroid (Acute) E03.9 Pseudobulbar affect (Acute) F48.2 Seizure (Acute) R56.9 - Assessment Assessment: Current Active Problems Problem Status Onset EXTREME AGITATION AND LASHING OUT AT STA Acute psychosis ... admit to geropsyche hyponatremia ... resolved. now normal hypothyroidism ... will start levothyroxine 50mcg PO daily seizure disorder ... stable. on depakote pseudobulbar affect disorder ... stable with medication anemia ... on ferrous sulfate. anxiety disorder Wound to left hip ... will order wound consult, start Clindamycin 300mg PO QID. will continue current treatment. +MRSA nares ... will order Bactroban. - Plan Plan: psychosis ... admit to geropsyche hyponatremia ... resolved. now normal hypothyroidism ... will start levothyroxine 50mcg PO daily seizure disorder ... stable. on depakote pseudobulbar affect disorder ... stable with medication anemia ... on ferrous sulfate. anxiety disorder Wound to left hip ... will order wound consult, start Clindamycin 300mg PO QID. surgical consult with Dr. Chino. +MRSA nares ... will order Bactroban. Nutritional Asmnt/Malnutr-PDOC - Dietary Evaluation Malnutrition Findings (Please click <Entered> for more info): Nutritional Asmnt/Malnutrition Start: 11/22/16 14: 44 Text: Status: Complete Freq: Document 11/23/16 18:42 [facility] (Rec: 11/23/16 18:51 [facility] [id number]) Nutritional Asmnt/Malnutrition Patient General Information Nutritional Screening Consult Diagnosis Psychosis Pertinent Medical Hx/Surgical Hx Pseudobulbar affect disorder, seizure, developmental disability, psychosis, anger, poor impulse control Subjective Information Nutrition Consult for left hip wound received and completed. Pt is a 56-year-old female from [facility] admitted with chief complaint of increased agitation and change in behavior. RD attempted nutrition assessment twice on 11/22 and 11/23. Pt is a poor historian. Current Diet Order/ Nutrition Support Mechanical soft chopped Patient / S.O Can't verbalize diet edu Pertinent Medications Vitamin C, Cleocin, Depakote, Colace, Pepcid, Iron, Folate, Zyperxa, Zinc Sulfate Pertinent Labs Reviewed Nutritional Hx/Data Height 1.68 m Height (Calculated Centimeters) 167.6 Current Weight (lbs) 72.575 kg Weight (Calculated Kilograms) 72.6 Weight (Calculated Grams) 63267.8 [place] Body Weight 130 % [place] Body Weight 123 Weight Status Approriate GI Symptoms GI Symptoms None Food Allergies No Usual diet at home Mechanical soft chopped Skin Integrity/Comment: Faisal 16. Acute on chronic left lateral hip wound. Current %PO Good (75-100%) Estimated Nutritional Goals BEE in Kcals: Using Current wt Calories/Kcals/Kg Based on current wt 72.7 kg with consideration of wound Kcals Calculated 1430-9210 kcals/day (30-35 kcals/kg) Protein: Using Current wt Protein g/kg: Based on current wt 72.7 kg with consideration of wound Protein Calculated 73-87 gm/day (1-1.2 gm/kg) Fluid: ml 8303-2355 ml/day (1 ml/klcal) Nutritional Problem 1. Problem Problem Increased protein needs related to Etiology altered skin integrity as evidenced by Signs/Symptoms: acute on chronic wound to left lateral hip, per Wound RN notes. Malnutrition Alert Protein-Calorie Malnutrition N/A Is there a minimum of two criteria No selected? Query Text:Check all the applicable criteria. A minimum of two criteria are recommended for diagnosis of either severe or non-severe malnutrition. Intervention/Recommendation Comments 1. Continue with current diet as it is adequate to meet estimated nutritional needs. 2. Continue vitamin C and zinc supplementation for wound healing. Expected Outcomes/Goals Expected Outcomes/Goals Have pt meet at least 75% of estimated nutritional needs, improved skin integrity.
[2016-11-30] MEDS: Dextromethorphan/Quinidine 20mg/10mg Cap PO SCH ×2 (08:37→21:02)
[2016-11-30] MEDS: Multivitamin w/ Minerals Tab PO SCH (08:37)
[2016-11-30] MEDS: Ferrous Sulfate 325 MG TAB PO SCH (08:37)
--- NOTE | 2016-12-01 04:40 | Progress Notes ---
DATE: 11/30/2016 Case was discussed with staff of the patient, reviewed records. She is developmentally disabled. She is unable to make safe plan for self-care. The staff report that she is being shown progress, progressively so and seems to be easier to redirect. She continues to have yelling episodes, but not as prominent with episodes of being violent, still remains labile, and she is compliant with the medication with no side effects, no sedation, no nausea and we took her off Depakote yesterday, initiated valproic acid 750 mg daily and 500 mg twice a day, and it is too early to make further adjustments. We will continue the patient in group therapy, milieu therapy, adjust medication as needed. JOB# [id number]
--- NOTE | 2016-12-01 06:45 | General Progress Note ---
Subjective - Review of Systems Service Date: 12/01/16 Subjective: Awake,alert,afebrile. No acute distress. Patient seen by Dr. Chino for evaluation of wound to her left hip. Please see dictated report. Will continue current treatment. Objective - Results Result Diagrams: 11/22/16 06:40 Recent Labs: Laboratory Last Values Sodium 137 mEq/L (136-145) 11/22/16 06:40 Potassium 4.2 mEq/L (3.5-5.1) 11/22/16 06:40 Chloride 104 mEq/L (98-107) 11/22/16 06:40 Carbon Dioxide 28.8 mEq/L (21.0-31.0) 11/22/16 06:40 Anion Gap 8.4 (7.0-16.0) 11/22/16 06:40 BUN 19 mg/dL (7-25) 11/22/16 06:40 Creatinine 0.7 mg/dL (0.6-1.2) 11/22/16 06:40 Est GFR ( Amer) > 60.0 ml/min (>90) 11/22/16 06:40 Est GFR (Non-Af Amer) > 60.0 ml/min 11/22/16 06:40 BUN/Creatinine Ratio 27.1 11/22/16 06:40 Glucose 85 mg/dL (70-105) 11/22/16 06:40 Calcium 9.7 mg/dL (8.6-10.3) 11/22/16 06:40 Free T4 0.97 ng/dL (0.82-1.77) 11/20/16 13:20 Valproic Acid 65.9 ug/mL (50.0-100.0) 11/20/16 13:59 - Physical Exam Vitals and I&O: Vital Signs Temp 98.1 F 11/30/16 20:51 Pulse 99 11/30/16 20:51 Resp 18 11/30/16 20:51 BP 101/56 11/30/16 20:51 Pulse Ox 97 11/30/16 20:51 Intake & Output 11/30/16 11/30/16 12/01/16 06:59 18:59 06:59 Intake Total 1200 240 Output Total 0 Balance 1200 240 Intake: Oral 1200 240 Output: Urine/Stool Mix 0 Other: # Voids 4 1 Active Medications: Current Medications Acetaminophen (Tylenol) 650 mg PO Q4H PRN PRN Reason: TEMP >100 Stop: 01/19/17 16:04 Alprazolam (Xanax) 1 mg PO Q4H PRN PRN Reason: Anxiety Last Admin: 11/28/16 00:54 Dose: 1 mg Ascorbic Acid (Vitamin C) 500 mg PO DAILY LEVY Stop: 01/20/17 08:59 Last Admin: 11/30/16 08:37 Dose: 500 mg Bisacodyl (Dulcolax 10 Mg Supp) 10 mg RC DAILY PRN PRN Reason: Constipation Stop: 01/19/17 16:04 Clonazepam (Klonopin) 1 mg PO BID LEVY PRN Reason: Protocol Stop: 01/25/17 08:59 Last Admin: 11/30/16 18:56 Dose: 1 mg Clotrimazole (Lotrimin 1% Cream) 1 appl TP BID LEVY Stop: 01/19/17 16:59 Last Admin: 11/30/16 18:32 Dose: Not Given Dextromethorphan/Quinidine (Nuedexta 20mg-10mg) 1 cap PO Q12HR LEVY Stop: 01/19/17 20:59 Last Admin: 11/30/16 21:02 Dose: 1 cap Diphenhydramine HCl (Benadryl) 25 mg PO Q4HR PRN PRN Reason: Agitation Stop: 01/25/17 05:43 Last Admin: 11/27/16 17:08 Dose: 25 mg Docusate Sodium (Colace) 100 mg PO BID LEVY Stop: 01/19/17 16:59 Last Admin: 11/30/16 18:56 Dose: Not Given Famotidine (Pepcid) 20 mg PO DAILY LEVY Stop: 01/20/17 08:59 Last Admin: 11/30/16 08:37 Dose: 20 mg Ferrous Sulfate (Iron) 325 mg PO DAILY LEVY Stop: 01/20/17 08:59 Last Admin: 11/30/16 08:37 Dose: 325 mg Folic Acid (Folate) 1 mg PO DAILY LEVY Stop: 01/20/17 08:59 Last Admin: 11/30/16 08:37 Dose: 1 mg Haloperidol (Haldol) 5 mg PO Q4HR PRN; Protocol PRN Reason: Agitation Stop: 01/25/17 07:59 Last Admin: 11/27/16 12:02 Dose: 5 mg Haloperidol (Haldol) 3 mg PO BID LEVY PRN Reason: Protocol Stop: 01/26/17 15:16 Last Admin: 11/30/16 18:57 Dose: 3 mg Levothyroxine Sodium (Synthroid) 0.05 mg PO QDAC LEVY Stop: 01/21/17 07:29 Last Admin: 11/30/16 06:49 Dose: 0.05 mg Lorazepam (Ativan) 1 mg PO Q6HR PRN; Protocol PRN Reason: Agitation Stop: 01/23/17 10:20 Last Admin: 11/29/16 10:42 Dose: 1 mg Magnesium Hydroxide (Milk Of Magnesia) 30 ml PO PRN PRN PRN Reason: Constipation Stop: 01/19/17 16:04 Nystatin/Triamcinolone Acetonide (Mycolog Ii Cream) 1 appl TP TID LEVY Stop: 01/19/17 20:59 Last Admin: 11/30/16 21:03 Dose: Not Given Olanzapine (Zyprexa) 15 mg PO BID LEVY PRN Reason: Protocol Stop: 01/25/17 16:59 Last Admin: 11/30/16 18:57 Dose: 15 mg Temazepam (Restoril) 15 mg PO HS PRN; Protocol PRN Reason: Insomnia Stop: 01/19/17 20:59 Last Admin: 11/29/16 22:52 Dose: 15 mg Valproate Sodium (Depakene) 750 mg PO DAILY LEVY PRN Reason: Protocol Stop: 01/29/17 08:59 Last Admin: 11/30/16 08:38 Dose: 750 mg Valproate Sodium (Depakene) 500 mg PO 1400,2100 LEVY PRN Reason: Protocol Stop: 01/28/17 13:59 Last Admin: 11/30/16 21:02 Dose: 500 mg Zinc Sulfate (Zinc Sulfate) 220 mg PO DAILY LEVY Stop: 01/20/17 08:59 Last Admin: 11/30/16 08:37 Dose: 220 mg General: Alert HEENT: Atraumatic, PERRLA, EOMI Neck: Supple Cardiovascular: Regular rate, Normal S1, Normal S2 Lungs: Clear to auscultation Abdomen: Bowel sounds Extremities: no Clubbing, no Cyanosis, no Edema Skin: Other (sore to the left hip) - Procedures Procedures: Procedures Procedure Code Date INDIVID PSYCHOTHERAP NEC 94.39 06/08/08 OTHER GROUP THERAPY 94.44 06/08/08 Assessment/Plan - Problem List Patient Problems: All Active Problems Anemia (Acute) D64.9 Anxiety (Acute) F41.9 EXTREME AGITATION AND LASHING OUT AT STA (Acute) Hyponatremia (Acute) E87.1 Hypothyroid (Acute) E03.9 Pseudobulbar affect (Acute) F48.2 Seizure (Acute) R56.9 - Assessment Assessment: Current Active Problems Problem Status Onset EXTREME AGITATION AND LASHING OUT AT STA Acute psychosis ... admit to geropsyche hyponatremia ... resolved. now normal hypothyroidism ... will start levothyroxine 50mcg PO daily seizure disorder ... stable. on depakote pseudobulbar affect disorder ... stable with medication anemia ... on ferrous sulfate. anxiety disorder Wound to left hip ... will order wound consult, start Clindamycin 300mg PO QID. will continue current treatment. +MRSA nares ... will order Bactroban. - Plan Plan: psychosis ... admit to geropsyche hyponatremia ... resolved. now normal hypothyroidism ... will start levothyroxine 50mcg PO daily seizure disorder ... stable. on depakote pseudobulbar affect disorder ... stable with medication anemia ... on ferrous sulfate. anxiety disorder Wound to left hip ... will order wound consult, start Clindamycin 300mg PO QID. surgical consult with Dr. Chino. +MRSA nares ... will order Bactroban. Nutritional Asmnt/Malnutr-PDOC - Dietary Evaluation Malnutrition Findings (Please click <Entered> for more info): Nutritional Asmnt/Malnutrition Start: 11/22/16 14: 44 Text: Status: Complete Freq: Document 11/23/16 18:42 [facility] (Rec: 11/23/16 18:51 [facility] [id number]) Nutritional Asmnt/Malnutrition Patient General Information Nutritional Screening Consult Diagnosis Psychosis Pertinent Medical Hx/Surgical Hx Pseudobulbar affect disorder, seizure, developmental disability, psychosis, anger, poor impulse control Subjective Information Nutrition Consult for left hip wound received and completed. Pt is a 56-year-old female from [facility] admitted with chief complaint of increased agitation and change in behavior. RD attempted nutrition assessment twice on 11/22 and 11/23. Pt is a poor historian. Current Diet Order/ Nutrition Support Mechanical soft chopped Patient / S.O Can't verbalize diet edu Pertinent Medications Vitamin C, Cleocin, Depakote, Colace, Pepcid, Iron, Folate, Zyperxa, Zinc Sulfate Pertinent Labs Reviewed Nutritional Hx/Data Height 1.68 m Height (Calculated Centimeters) 167.6 Current Weight (lbs) 72.575 kg Weight (Calculated Kilograms) 72.6 Weight (Calculated Grams) 25724.8 [place] Body Weight 130 % [place] Body Weight 123 Weight Status Approriate GI Symptoms GI Symptoms None Food Allergies No Usual diet at home Mechanical soft chopped Skin Integrity/Comment: Faisal 16. Acute on chronic left lateral hip wound. Current %PO Good (75-100%) Estimated Nutritional Goals BEE in Kcals: Using Current wt Calories/Kcals/Kg Based on current wt 72.7 kg with consideration of wound Kcals Calculated 1006-4956 kcals/day (30-35 kcals/kg) Protein: Using Current wt Protein g/kg: Based on current wt 72.7 kg with consideration of wound Protein Calculated 73-87 gm/day (1-1.2 gm/kg) Fluid: ml 9482-1843 ml/day (1 ml/klcal) Nutritional Problem 1. Problem Problem Increased protein needs related to Etiology altered skin integrity as evidenced by Signs/Symptoms: acute on chronic wound to left lateral hip, per Wound RN notes. Malnutrition Alert Protein-Calorie Malnutrition N/A Is there a minimum of two criteria No selected? Query Text:Check all the applicable criteria. A minimum of two criteria are recommended for diagnosis of either severe or non-severe malnutrition. Intervention/Recommendation Comments 1. Continue with current diet as it is adequate to meet estimated nutritional needs. 2. Continue vitamin C and zinc supplementation for wound healing. Expected Outcomes/Goals Expected Outcomes/Goals Have pt meet at least 75% of estimated nutritional needs, improved skin integrity.
[2016-12-01] MEDS: Levothyroxine 0.05 Mg Tab PO SCH (06:51)
[2016-12-01] MEDS: Ferrous Sulfate 325 MG TAB PO SCH (08:54)
[2016-12-01] MEDS: Dextromethorphan/Quinidine 20mg/10mg Cap PO SCH ×2 (08:54→21:13)
[2016-12-01] MEDS: Multivitamin w/ Minerals Tab PO SCH (08:54)
--- NOTE | 2016-12-02 02:10 | Progress Notes ---
DATE: 12/01/[address] Vasques. Case was discussed with staff of the patient, reviewed records. The patient mostly is staying in bed. She wanted coffee today. She is still unpredictable, impulsive. She is gravely disabled, unable to take care of herself, make safe plan for self-care. She is on ____ and Haldol 3 mg twice a day with no side effects, no sedation, no nausea, no extrapyramidal symptoms as well as Zyprexa 15 mg twice a day. We will continue to work with the patient in group therapy, milieu therapy, and adjust medication as needed. JOB# [id number]
[2016-12-02] MEDS: Levothyroxine 0.05 Mg Tab PO SCH (06:39)
--- NOTE | 2016-12-02 07:29 | General Progress Note ---
Subjective - Review of Systems Service Date: 12/02/16 Subjective: Awake,alert,afebrile. Objective - Results Result Diagrams: 11/22/16 06:40 Recent Labs: Laboratory Last Values Sodium 137 mEq/L (136-145) 11/22/16 06:40 Potassium 4.2 mEq/L (3.5-5.1) 11/22/16 06:40 Chloride 104 mEq/L (98-107) 11/22/16 06:40 Carbon Dioxide 28.8 mEq/L (21.0-31.0) 11/22/16 06:40 Anion Gap 8.4 (7.0-16.0) 11/22/16 06:40 BUN 19 mg/dL (7-25) 11/22/16 06:40 Creatinine 0.7 mg/dL (0.6-1.2) 11/22/16 06:40 Est GFR ( Amer) > 60.0 ml/min (>90) 11/22/16 06:40 Est GFR (Non-Af Amer) > 60.0 ml/min 11/22/16 06:40 BUN/Creatinine Ratio 27.1 11/22/16 06:40 Glucose 85 mg/dL (70-105) 11/22/16 06:40 Calcium 9.7 mg/dL (8.6-10.3) 11/22/16 06:40 Free T4 0.97 ng/dL (0.82-1.77) 11/20/16 13:20 Valproic Acid 65.9 ug/mL (50.0-100.0) 11/20/16 13:59 - Physical Exam Vitals and I&O: Vital Signs Temp 97.4 F 12/02/16 06:38 Pulse 81 12/02/16 06:38 Resp 19 12/02/16 06:38 BP 133/82 12/02/16 06:38 Pulse Ox 97 12/02/16 06:38 Intake & Output 12/01/16 12/02/16 12/02/16 18:59 06:59 18:59 Intake Total 2800 120 Balance 2800 120 Intake: Oral 2800 120 Other: # Voids 5 3 Active Medications: Current Medications Acetaminophen (Tylenol) 650 mg PO Q4H PRN PRN Reason: TEMP >100 Stop: 01/19/17 16:04 Alprazolam (Xanax) 1 mg PO Q4H PRN PRN Reason: Anxiety Last Admin: 11/28/16 00:54 Dose: 1 mg Ascorbic Acid (Vitamin C) 500 mg PO DAILY [facility] Stop: 01/20/17 08:59 Last Admin: 12/01/16 08:53 Dose: 500 mg Bisacodyl (Dulcolax 10 Mg Supp) 10 mg RC DAILY PRN PRN Reason: Constipation Stop: 01/19/17 16:04 Clonazepam (Klonopin) 1 mg PO BID [facility] PRN Reason: Protocol Stop: 01/25/17 08:59 Last Admin: 12/01/16 18:10 Dose: 1 mg Clotrimazole (Lotrimin 1% Cream) 1 appl TP BID [facility] Stop: 01/19/17 16:59 Last Admin: 12/01/16 16:33 Dose: Not Given Dextromethorphan/Quinidine (Nuedexta 20mg-10mg) 1 cap PO Q12HR [facility] Stop: 01/19/17 20:59 Last Admin: 12/01/16 21:13 Dose: 1 cap Diphenhydramine HCl (Benadryl) 25 mg PO Q4HR PRN PRN Reason: Agitation Stop: 01/25/17 05:43 Last Admin: 11/27/16 17:08 Dose: 25 mg Docusate Sodium (Colace) 100 mg PO BID [facility] Stop: 01/19/17 16:59 Last Admin: 12/01/16 18:10 Dose: 100 mg Famotidine (Pepcid) 20 mg PO DAILY [facility] Stop: 01/20/17 08:59 Last Admin: 12/01/16 08:52 Dose: 20 mg Ferrous Sulfate (Iron) 325 mg PO DAILY [facility] Stop: 01/20/17 08:59 Last Admin: 12/01/16 08:54 Dose: 325 mg Folic Acid (Folate) 1 mg PO DAILY [facility] Stop: 01/20/17 08:59 Last Admin: 12/01/16 08:52 Dose: 1 mg Haloperidol (Haldol) 5 mg PO Q4HR PRN; Protocol PRN Reason: Agitation Stop: 01/25/17 07:59 Last Admin: 12/01/16 21:13 Dose: 5 mg Haloperidol (Haldol) 3 mg PO BID [facility] PRN Reason: Protocol Stop: 01/26/17 15:16 Last Admin: 12/01/16 18:07 Dose: 3 mg Levothyroxine Sodium (Synthroid) 0.05 mg PO QDAC [facility] Stop: 01/21/17 07:29 Last Admin: 12/02/16 06:39 Dose: Not Given Lorazepam (Ativan) 1 mg PO Q6HR PRN; Protocol PRN Reason: Agitation Stop: 01/23/17 10:20 Last Admin: 11/29/16 10:42 Dose: 1 mg Magnesium Hydroxide (Milk Of Magnesia) 30 ml PO PRN PRN PRN Reason: Constipation Stop: 01/19/17 16:04 Nystatin/Triamcinolone Acetonide (Mycolog Ii Cream) 1 appl TP TID [facility] Stop: 01/19/17 20:59 Last Admin: 12/01/16 21:13 Dose: Not Given Olanzapine (Zyprexa) 15 mg PO BID [facility] PRN Reason: Protocol Stop: 01/25/17 16:59 Last Admin: 12/01/16 18:11 Dose: 15 mg Temazepam (Restoril) 15 mg PO HS PRN; Protocol PRN Reason: Insomnia Stop: 01/19/17 20:59 Last Admin: 12/02/16 00:07 Dose: 15 mg Valproate Sodium (Depakene) 750 mg PO DAILY [facility] PRN Reason: Protocol Stop: 01/29/17 08:59 Last Admin: 12/01/16 08:54 Dose: 750 mg Valproate Sodium (Depakene) 500 mg PO 1400,2100 [facility] PRN Reason: Protocol Stop: 01/28/17 13:59 Last Admin: 12/01/16 21:13 Dose: 500 mg Zinc Sulfate (Zinc Sulfate) 220 mg PO DAILY [facility] Stop: 01/20/17 08:59 Last Admin: 12/01/16 08:54 Dose: 220 mg General: Alert HEENT: Atraumatic, PERRLA, EOMI Neck: Supple Cardiovascular: Regular rate, Normal S1, Normal S2 Lungs: Clear to auscultation Abdomen: Bowel sounds Extremities: no Clubbing, no Cyanosis, no Edema Skin: Other (sore to the left hip) - Procedures Procedures: Procedures Procedure Code Date INDIVID PSYCHOTHERAP NEC 94.39 06/08/08 OTHER GROUP THERAPY 94.44 03/03/09 Assessment/Plan - Problem List Patient Problems: All Active Problems Anemia (Acute) D64.9 Anxiety (Acute) F41.9 EXTREME AGITATION AND LASHING OUT AT STA (Acute) Hyponatremia (Acute) E87.1 Hypothyroid (Acute) E03.9 Pseudobulbar affect (Acute) F48.2 Seizure (Acute) R56.9 - Assessment Assessment: Current Active Problems Problem Status Onset EXTREME AGITATION AND LASHING OUT AT STA Acute psychosis ... admit to geropsyche hyponatremia ... resolved. now normal hypothyroidism ... will start levothyroxine 50mcg PO daily seizure disorder ... stable. on depakote pseudobulbar affect disorder ... stable with medication anemia ... on ferrous sulfate. anxiety disorder Wound to left hip ... will order wound consult, start Clindamycin 300mg PO QID. will continue current treatment. +MRSA nares ... will order Bactroban. - Plan Plan: psychosis ... admit to geropsyche hyponatremia ... resolved. now normal hypothyroidism ... will start levothyroxine 50mcg PO daily seizure disorder ... stable. on depakote pseudobulbar affect disorder ... stable with medication anemia ... on ferrous sulfate. anxiety disorder Wound to left hip ... will order wound consult, start Clindamycin 300mg PO QID. surgical consult with Dr. Chino. +MRSA nares ... will order Bactroban. Nutritional Asmnt/Malnutr-PDOC - Dietary Evaluation Malnutrition Findings (Please click <Entered> for more info): Nutritional Asmnt/Malnutrition Start: 11/22/16 14: 44 Text: Status: Complete Freq: Document 11/23/16 18:42 [facility] (Rec: 11/23/16 18:51 [facility] [id number]) Nutritional Asmnt/Malnutrition Patient General Information Nutritional Screening Consult Diagnosis Psychosis Pertinent Medical Hx/Surgical Hx Pseudobulbar affect disorder, seizure, developmental disability, psychosis, anger, poor impulse control Subjective Information Nutrition Consult for left hip wound received and completed. Pt is a 56-year-old female from [facility] admitted with chief complaint of increased agitation and change in behavior. RD attempted nutrition assessment twice on 11/22 and 11/23. Pt is a poor historian. Current Diet Order/ Nutrition Support Mechanical soft chopped Patient / S.O Can't verbalize diet edu Pertinent Medications Vitamin C, Cleocin, Depakote, Colace, Pepcid, Iron, Folate, Zyperxa, Zinc Sulfate Pertinent Labs Reviewed Nutritional Hx/Data Height 1.68 m Height (Calculated Centimeters) 167.6 Current Weight (lbs) 72.575 kg Weight (Calculated Kilograms) 72.6 Weight (Calculated Grams) 02019.8 [place] Body Weight 130 % [place] Body Weight 123 Weight Status Approriate GI Symptoms GI Symptoms None Food Allergies No Usual diet at home Mechanical soft chopped Skin Integrity/Comment: Faisal 16. Acute on chronic left lateral hip wound. Current %PO Good (75-100%) Estimated Nutritional Goals BEE in Kcals: Using Current wt Calories/Kcals/Kg Based on current wt 72.7 kg with consideration of wound Kcals Calculated 4123-0262 kcals/day (30-35 kcals/kg) Protein: Using Current wt Protein g/kg: Based on current wt 72.7 kg with consideration of wound Protein Calculated 73-87 gm/day (1-1.2 gm/kg) Fluid: ml 4331-9232 ml/day (1 ml/klcal) Nutritional Problem 1. Problem Problem Increased protein needs related to Etiology altered skin integrity as evidenced by Signs/Symptoms: acute on chronic wound to left lateral hip, per Wound RN notes. Malnutrition Alert Protein-Calorie Malnutrition N/A Is there a minimum of two criteria No selected? Query Text:Check all the applicable criteria. A minimum of two criteria are recommended for diagnosis of either severe or non-severe malnutrition. Intervention/Recommendation Comments 1. Continue with current diet as it is adequate to meet estimated nutritional needs. 2. Continue vitamin C and zinc supplementation for wound healing. Expected Outcomes/Goals Expected Outcomes/Goals Have pt meet at least 75% of estimated nutritional needs, improved skin integrity.
[2016-12-02] MEDS: Dextromethorphan/Quinidine 20mg/10mg Cap PO SCH ×2 (08:48→21:01)
[2016-12-02] MEDS: Ferrous Sulfate 325 MG TAB PO SCH (08:48)
[2016-12-02] MEDS: Multivitamin w/ Minerals Tab PO SCH (08:49)
--- NOTE | 2016-12-03 03:39 | Progress Notes ---
DATE: 12/02/2016 Case was discussed with staff of the patient, reviewed records. Covering for Dr. Vasques. The patient has not been sleeping well. She keeps asking for coffee. She is developmentally disabled. Continues to be unable to make safe plan for self-care. She is not sleeping well. She is eating okay. No side effect from the medication. No sedation, no nausea, no extrapyramidal symptoms. We will continue to work with the patient in group therapy, milieu therapy, adjust medication as needed. We will watch tomorrow before adjusting medication. She is taking a sleeping pill as well as Zyprexa at bedtime. JOB# [id number]
[2016-12-03] MEDS: Levothyroxine 0.05 Mg Tab PO SCH (06:38)
--- NOTE | 2016-12-03 08:07 | General Progress Note ---
Subjective - Review of Systems Service Date: 12/03/16 Subjective: Awake,alert,afebrile. Objective - Results Result Diagrams: 11/22/16 06:40 Recent Labs: Laboratory Last Values Sodium 137 mEq/L (136-145) 11/22/16 06:40 Potassium 4.2 mEq/L (3.5-5.1) 11/22/16 06:40 Chloride 104 mEq/L (98-107) 11/22/16 06:40 Carbon Dioxide 28.8 mEq/L (21.0-31.0) 11/22/16 06:40 Anion Gap 8.4 (7.0-16.0) 11/22/16 06:40 BUN 19 mg/dL (7-25) 11/22/16 06:40 Creatinine 0.7 mg/dL (0.6-1.2) 11/22/16 06:40 Est GFR ( Amer) > 60.0 ml/min (>90) 11/22/16 06:40 Est GFR (Non-Af Amer) > 60.0 ml/min 11/22/16 06:40 BUN/Creatinine Ratio 27.1 11/22/16 06:40 Glucose 85 mg/dL (70-105) 11/22/16 06:40 Calcium 9.7 mg/dL (8.6-10.3) 11/22/16 06:40 Free T4 0.97 ng/dL (0.82-1.77) 11/20/16 13:20 Valproic Acid 65.9 ug/mL (50.0-100.0) 11/20/16 13:59 - Physical Exam Vitals and I&O: Vital Signs Temp 97.8 F 12/03/16 07:06 Pulse 76 12/03/16 07:06 Resp 20 12/03/16 07:06 BP 106/60 12/03/16 07:06 Pulse Ox 98 12/03/16 07:06 Intake & Output 12/02/16 12/03/16 12/03/16 18:59 06:59 18:59 Intake Total 180 Balance 180 Weight (lbs) 72.575 kg Intake: Oral 180 Other: # Voids 2 3 # Bowel Movements 0 0 Active Medications: Current Medications Acetaminophen (Tylenol) 650 mg PO Q4H PRN PRN Reason: TEMP >100 Stop: 01/19/17 16:04 Alprazolam (Xanax) 1 mg PO Q4H PRN PRN Reason: Anxiety Last Admin: 11/28/16 00:54 Dose: 1 mg Ascorbic Acid (Vitamin C) 500 mg PO DAILY [facility] Stop: 01/20/17 08:59 Last Admin: 12/02/16 08:48 Dose: 500 mg Bisacodyl (Dulcolax 10 Mg Supp) 10 mg RC DAILY PRN PRN Reason: Constipation Stop: 01/19/17 16:04 Clonazepam (Klonopin) 1 mg PO BID [facility] PRN Reason: Protocol Stop: 01/25/17 08:59 Last Admin: 12/02/16 16:34 Dose: 1 mg Clotrimazole (Lotrimin 1% Cream) 1 appl TP BID [facility] Stop: 01/19/17 16:59 Last Admin: 12/02/16 16:35 Dose: Not Given Dextromethorphan/Quinidine (Nuedexta 20mg-10mg) 1 cap PO Q12HR [facility] Stop: 01/19/17 20:59 Last Admin: 12/02/16 21:01 Dose: 1 cap Diphenhydramine HCl (Benadryl) 25 mg PO Q4HR PRN PRN Reason: Agitation Stop: 01/25/17 05:43 Last Admin: 11/27/16 17:08 Dose: 25 mg Docusate Sodium (Colace) 100 mg PO BID [facility] Stop: 01/19/17 16:59 Last Admin: 12/02/16 16:34 Dose: 100 mg Famotidine (Pepcid) 20 mg PO DAILY [facility] Stop: 01/20/17 08:59 Last Admin: 12/02/16 08:47 Dose: 20 mg Ferrous Sulfate (Iron) 325 mg PO DAILY [facility] Stop: 01/20/17 08:59 Last Admin: 12/02/16 08:48 Dose: 325 mg Folic Acid (Folate) 1 mg PO DAILY [facility] Stop: 01/20/17 08:59 Last Admin: 12/02/16 08:46 Dose: 1 mg Haloperidol (Haldol) 5 mg PO Q4HR PRN; Protocol PRN Reason: Agitation Stop: 01/25/17 07:59 Last Admin: 12/02/16 21:45 Dose: 5 mg Haloperidol (Haldol) 3 mg PO BID [facility] PRN Reason: Protocol Stop: 01/26/17 15:16 Last Admin: 12/02/16 16:34 Dose: 3 mg Levothyroxine Sodium (Synthroid) 0.05 mg PO QDAC [facility] Stop: 01/21/17 07:29 Last Admin: 12/03/16 06:38 Dose: 0.05 mg Lorazepam (Ativan) 1 mg PO Q6HR PRN; Protocol PRN Reason: Agitation Stop: 01/23/17 10:20 Last Admin: 11/29/16 10:42 Dose: 1 mg Magnesium Hydroxide (Milk Of Magnesia) 30 ml PO PRN PRN PRN Reason: Constipation Stop: 01/19/17 16:04 Nystatin/Triamcinolone Acetonide (Mycolog Ii Cream) 1 appl TP TID [facility] Stop: 01/19/17 20:59 Last Admin: 12/02/16 21:31 Dose: 1 appl Olanzapine (Zyprexa) 15 mg PO BID [facility] PRN Reason: Protocol Stop: 01/25/17 16:59 Last Admin: 12/02/16 16:34 Dose: 15 mg Temazepam (Restoril) 15 mg PO HS PRN; Protocol PRN Reason: Insomnia Stop: 01/19/17 20:59 Last Admin: 12/02/16 21:02 Dose: 15 mg Valproate Sodium (Depakene) 750 mg PO DAILY [facility] PRN Reason: Protocol Stop: 01/29/17 08:59 Last Admin: 12/02/16 08:48 Dose: 750 mg Valproate Sodium (Depakene) 500 mg PO 1400,2100 [facility] PRN Reason: Protocol Stop: 01/28/17 13:59 Last Admin: 12/02/16 21:01 Dose: 500 mg Zinc Sulfate (Zinc Sulfate) 220 mg PO DAILY [facility] Stop: 01/20/17 08:59 Last Admin: 12/02/16 08:48 Dose: 220 mg General: Alert HEENT: Atraumatic, PERRLA, EOMI Neck: Supple Cardiovascular: Regular rate, Normal S1, Normal S2 Lungs: Clear to auscultation Abdomen: Bowel sounds Extremities: no Clubbing, no Cyanosis, no Edema Skin: Other (sore to the left hip) - Procedures Procedures: Procedures Procedure Code Date INDIVID PSYCHOTHERAP NEC 94.39 03/03/09 OTHER GROUP THERAPY 94.44 06/08/08 Assessment/Plan - Problem List Patient Problems: All Active Problems Anemia (Acute) D64.9 Anxiety (Acute) F41.9 EXTREME AGITATION AND LASHING OUT AT STA (Acute) Hyponatremia (Acute) E87.1 Hypothyroid (Acute) E03.9 Pseudobulbar affect (Acute) F48.2 Seizure (Acute) R56.9 - Assessment Assessment: Current Active Problems Problem Status Onset EXTREME AGITATION AND LASHING OUT AT STA Acute psychosis ... admit to geropsyche hyponatremia ... resolved. now normal hypothyroidism ... will start levothyroxine 50mcg PO daily seizure disorder ... stable. on depakote pseudobulbar affect disorder ... stable with medication anemia ... on ferrous sulfate. anxiety disorder Wound to left hip ... will order wound consult, start Clindamycin 300mg PO QID. will continue current treatment. +MRSA nares ... will order Bactroban. - Plan Plan: psychosis ... admit to geropsyche hyponatremia ... resolved. now normal hypothyroidism ... will start levothyroxine 50mcg PO daily seizure disorder ... stable. on depakote pseudobulbar affect disorder ... stable with medication anemia ... on ferrous sulfate. anxiety disorder Wound to left hip ... will order wound consult, start Clindamycin 300mg PO QID. surgical consult with Dr. Chino. +MRSA nares ... will order Bactroban. Nutritional Asmnt/Malnutr-PDOC - Dietary Evaluation Malnutrition Findings (Please click <Entered> for more info): Nutritional Asmnt/Malnutrition Start: 11/22/16 14: 44 Text: Status: Complete Freq: Document 11/23/16 18:42 [facility] (Rec: 11/23/16 18:51 [facility] [id number]) Nutritional Asmnt/Malnutrition Patient General Information Nutritional Screening Consult Diagnosis Psychosis Pertinent Medical Hx/Surgical Hx Pseudobulbar affect disorder, seizure, developmental disability, psychosis, anger, poor impulse control Subjective Information Nutrition Consult for left hip wound received and completed. Pt is a 56-year-old female from [facility] admitted with chief complaint of increased agitation and change in behavior. RD attempted nutrition assessment twice on 11/22 and 11/23. Pt is a poor historian. Current Diet Order/ Nutrition Support Mechanical soft chopped Patient / S.O Can't verbalize diet edu Pertinent Medications Vitamin C, Cleocin, Depakote, Colace, Pepcid, Iron, Folate, Zyperxa, Zinc Sulfate Pertinent Labs Reviewed Nutritional Hx/Data Height 1.68 m Height (Calculated Centimeters) 167.6 Current Weight (lbs) 72.575 kg Weight (Calculated Kilograms) 72.6 Weight (Calculated Grams) 22183.8 [place] Body Weight 130 % [place] Body Weight 123 Weight Status Approriate GI Symptoms GI Symptoms None Food Allergies No Usual diet at home Mechanical soft chopped Skin Integrity/Comment: Faisal 16. Acute on chronic left lateral hip wound. Current %PO Good (75-100%) Estimated Nutritional Goals BEE in Kcals: Using Current wt Calories/Kcals/Kg Based on current wt 72.7 kg with consideration of wound Kcals Calculated 9956-3091 kcals/day (30-35 kcals/kg) Protein: Using Current wt Protein g/kg: Based on current wt 72.7 kg with consideration of wound Protein Calculated 73-87 gm/day (1-1.2 gm/kg) Fluid: ml 9963-3661 ml/day (1 ml/klcal) Nutritional Problem 1. Problem Problem Increased protein needs related to Etiology altered skin integrity as evidenced by Signs/Symptoms: acute on chronic wound to left lateral hip, per Wound RN notes. Malnutrition Alert Protein-Calorie Malnutrition N/A Is there a minimum of two criteria No selected? Query Text:Check all the applicable criteria. A minimum of two criteria are recommended for diagnosis of either severe or non-severe malnutrition. Intervention/Recommendation Comments 1. Continue with current diet as it is adequate to meet estimated nutritional needs. 2. Continue vitamin C and zinc supplementation for wound healing. Expected Outcomes/Goals Expected Outcomes/Goals Have pt meet at least 75% of estimated nutritional needs, improved skin integrity.
[2016-12-03] MEDS: Multivitamin w/ Minerals Tab PO SCH (08:14)
[2016-12-03] MEDS: Ferrous Sulfate 325 MG TAB PO SCH (08:14)
[2016-12-03] MEDS: Dextromethorphan/Quinidine 20mg/10mg Cap PO SCH ×2 (08:14→20:54)
--- NOTE | 2016-12-03 20:38 | Progress Notes ---
DATE: 12/03/2016 SUBJECTIVE: The patient was seen, chart reviewed, discussed with staff. The patient is still with yelling and screaming episodes, but seems to be less violent, less aggressive. However, she remains gravely disabled, unable to care for her basic needs. She __remains symptomatic___. Medications were reviewed. Labs were reviewed. No overt side effects noted. She does seem to be showing some improvement. ASSESSMENT: The patient is gravely disabled, still with yelling and screaming episodes, still requiring a lot of redirection. PLAN: We will continue to monitor. We will keep an eye on her labs as well, Depakote level at 65.9. JOB# [id number] [email or web address]
[2016-12-04] MEDS: Levothyroxine 0.05 Mg Tab PO SCH (06:54)
--- NOTE | 2016-12-04 09:24 | General Progress Note ---
Subjective - Review of Systems Service Date: 12/04/16 Subjective: Awake,alert,afebrile. Objective - Results Result Diagrams: 11/22/16 06:40 Recent Labs: Laboratory Last Values Sodium 137 mEq/L (136-145) 11/22/16 06:40 Potassium 4.2 mEq/L (3.5-5.1) 11/22/16 06:40 Chloride 104 mEq/L (98-107) 11/22/16 06:40 Carbon Dioxide 28.8 mEq/L (21.0-31.0) 11/22/16 06:40 Anion Gap 8.4 (7.0-16.0) 11/22/16 06:40 BUN 19 mg/dL (7-25) 11/22/16 06:40 Creatinine 0.7 mg/dL (0.6-1.2) 11/22/16 06:40 Est GFR ( Amer) > 60.0 ml/min (>90) 11/22/16 06:40 Est GFR (Non-Af Amer) > 60.0 ml/min 11/22/16 06:40 BUN/Creatinine Ratio 27.1 11/22/16 06:40 Glucose 85 mg/dL (70-105) 11/22/16 06:40 Calcium 9.7 mg/dL (8.6-10.3) 11/22/16 06:40 Free T4 0.97 ng/dL (0.82-1.77) 11/20/16 13:20 Valproic Acid 65.9 ug/mL (50.0-100.0) 11/20/16 13:59 - Physical Exam Vitals and I&O: Vital Signs Temp 98.0 F 12/04/16 06:49 Pulse 85 12/04/16 06:49 Resp 20 12/04/16 06:49 BP 121/64 12/04/16 06:49 Pulse Ox 96 12/04/16 06:49 Intake & Output 12/03/16 12/04/16 12/04/16 18:59 06:59 18:59 Intake Total 1200 360 Balance 1200 360 Weight (lbs) 72.575 kg Intake: Oral 1200 360 Other: # Voids 4 2 # Bowel Movements 1 0 Stool Characteristics Formed Hard Active Medications: Current Medications Acetaminophen (Tylenol) 650 mg PO Q4H PRN PRN Reason: TEMP >100 Stop: 01/19/17 16:04 Alprazolam (Xanax) 1 mg PO Q4H PRN PRN Reason: Anxiety Last Admin: 11/28/16 00:54 Dose: 1 mg Ascorbic Acid (Vitamin C) 500 mg PO DAILY [facility] Stop: 01/20/17 08:59 Last Admin: 12/03/16 08:14 Dose: 500 mg Bisacodyl (Dulcolax 10 Mg Supp) 10 mg RC DAILY PRN PRN Reason: Constipation Stop: 01/19/17 16:04 Clonazepam (Klonopin) 1 mg PO BID [facility] Stop: 02/01/17 16:59 Last Admin: 12/03/16 16:20 Dose: 1 mg Clotrimazole (Lotrimin 1% Cream) 1 appl TP BID [facility] Stop: 01/19/17 16:59 Last Admin: 12/03/16 16:29 Dose: Not Given Dextromethorphan/Quinidine (Nuedexta 20mg-10mg) 1 cap PO Q12HR [facility] Stop: 01/19/17 20:59 Last Admin: 12/03/16 20:54 Dose: 1 cap Diphenhydramine HCl (Benadryl) 25 mg PO Q4HR PRN PRN Reason: Agitation Stop: 01/25/17 05:43 Last Admin: 11/27/16 17:08 Dose: 25 mg Docusate Sodium (Colace) 100 mg PO BID [facility] Stop: 01/19/17 16:59 Last Admin: 12/03/16 16:20 Dose: 100 mg Famotidine (Pepcid) 20 mg PO DAILY [facility] Stop: 01/20/17 08:59 Last Admin: 12/03/16 08:15 Dose: 20 mg Ferrous Sulfate (Iron) 325 mg PO DAILY [facility] Stop: 01/20/17 08:59 Last Admin: 12/03/16 08:14 Dose: 325 mg Folic Acid (Folate) 1 mg PO DAILY [facility] Stop: 01/20/17 08:59 Last Admin: 12/03/16 08:20 Dose: 1 mg Haloperidol (Haldol) 3 mg PO BID [facility] PRN Reason: Protocol Stop: 01/26/17 15:16 Last Admin: 12/03/16 16:22 Dose: Not Given Haloperidol (Haldol) 5 mg PO Q4HR PRN PRN Reason: Agitation Stop: 02/01/17 10:31 Levothyroxine Sodium (Synthroid) 0.05 mg PO QDAC [facility] Stop: 01/21/17 07:29 Last Admin: 12/04/16 06:54 Dose: 0.05 mg Lorazepam (Ativan) 1 mg PO Q6HR PRN; Protocol PRN Reason: Agitation Stop: 01/23/17 10:20 Last Admin: 11/29/16 10:42 Dose: 1 mg Magnesium Hydroxide (Milk Of Magnesia) 30 ml PO PRN PRN PRN Reason: Constipation Stop: 01/19/17 16:04 Nystatin/Triamcinolone Acetonide (Mycolog Ii Cream) 1 appl TP TID [facility] Stop: 01/19/17 20:59 Last Admin: 12/03/16 20:56 Dose: 1 appl Olanzapine (Zyprexa) 15 mg PO BID [facility] PRN Reason: Protocol Stop: 01/25/17 16:59 Last Admin: 12/03/16 16:20 Dose: 15 mg Temazepam (Restoril) 15 mg PO HS PRN; Protocol PRN Reason: Insomnia Stop: 01/19/17 20:59 Last Admin: 12/03/16 20:54 Dose: 15 mg Valproate Sodium (Depakene) 750 mg PO DAILY [facility] PRN Reason: Protocol Stop: 01/29/17 08:59 Last Admin: 12/03/16 08:16 Dose: 750 mg Valproate Sodium (Depakene) 500 mg PO 1400,2100 [facility] PRN Reason: Protocol Stop: 01/28/17 13:59 Last Admin: 12/03/16 20:55 Dose: 500 mg Zinc Sulfate (Zinc Sulfate) 220 mg PO DAILY [facility] Stop: 01/20/17 08:59 Last Admin: 12/03/16 08:14 Dose: 220 mg General: Alert HEENT: Atraumatic, PERRLA, EOMI Neck: Supple Cardiovascular: Regular rate, Normal S1, Normal S2 Lungs: Clear to auscultation Abdomen: Bowel sounds Extremities: no Clubbing, no Cyanosis, no Edema Skin: Other (sore to the left hip) - Procedures Procedures: Procedures Procedure Code Date INDIVID PSYCHOTHERAP NEC 94.39 06/08/08 OTHER GROUP THERAPY 94.44 06/08/08 Assessment/Plan - Problem List Patient Problems: All Active Problems Anemia (Acute) D64.9 Anxiety (Acute) F41.9 EXTREME AGITATION AND LASHING OUT AT STA (Acute) Hyponatremia (Acute) E87.1 Hypothyroid (Acute) E03.9 Pseudobulbar affect (Acute) F48.2 Seizure (Acute) R56.9 - Assessment Assessment: Current Active Problems Problem Status Onset EXTREME AGITATION AND LASHING OUT AT STA Acute psychosis ... admit to geropsyche hyponatremia ... resolved. now normal hypothyroidism ... will start levothyroxine 50mcg PO daily seizure disorder ... stable. on depakote pseudobulbar affect disorder ... stable with medication anemia ... on ferrous sulfate. anxiety disorder Wound to left hip ... will order wound consult, start Clindamycin 300mg PO QID. will continue current treatment. +MRSA nares ... will order Bactroban. - Plan Plan: psychosis ... admit to geropsyche hyponatremia ... resolved. now normal hypothyroidism ... will start levothyroxine 50mcg PO daily seizure disorder ... stable. on depakote pseudobulbar affect disorder ... stable with medication anemia ... on ferrous sulfate. anxiety disorder Wound to left hip ... will order wound consult, start Clindamycin 300mg PO QID. surgical consult with Dr. Chino. +MRSA nares ... will order Bactroban. Nutritional Asmnt/Malnutr-PDOC - Dietary Evaluation Malnutrition Findings (Please click <Entered> for more info): Nutritional Asmnt/Malnutrition Start: 11/22/16 14: 44 Text: Status: Complete Freq: Document 11/23/16 18:42 [facility] (Rec: 11/23/16 18:51 [facility] [id number]) Nutritional Asmnt/Malnutrition Patient General Information Nutritional Screening Consult Diagnosis Psychosis Pertinent Medical Hx/Surgical Hx Pseudobulbar affect disorder, seizure, developmental disability, psychosis, anger, poor impulse control Subjective Information Nutrition Consult for left hip wound received and completed. Pt is a 56-year-old female from [facility] admitted with chief complaint of increased agitation and change in behavior. RD attempted nutrition assessment twice on 11/22 and 11/23. Pt is a poor historian. Current Diet Order/ Nutrition Support Mechanical soft chopped Patient / S.O Can't verbalize diet edu Pertinent Medications Vitamin C, Cleocin, Depakote, Colace, Pepcid, Iron, Folate, Zyperxa, Zinc Sulfate Pertinent Labs Reviewed Nutritional Hx/Data Height 1.68 m Height (Calculated Centimeters) 167.6 Current Weight (lbs) 72.575 kg Weight (Calculated Kilograms) 72.6 Weight (Calculated Grams) 85731.8 [place] Body Weight 130 % [place] Body Weight 123 Weight Status Approriate GI Symptoms GI Symptoms None Food Allergies No Usual diet at home Mechanical soft chopped Skin Integrity/Comment: Faisal 16. Acute on chronic left lateral hip wound. Current %PO Good (75-100%) Estimated Nutritional Goals BEE in Kcals: Using Current wt Calories/Kcals/Kg Based on current wt 72.7 kg with consideration of wound Kcals Calculated 1052-2517 kcals/day (30-35 kcals/kg) Protein: Using Current wt Protein g/kg: Based on current wt 72.7 kg with consideration of wound Protein Calculated 73-87 gm/day (1-1.2 gm/kg) Fluid: ml 5274-5510 ml/day (1 ml/klcal) Nutritional Problem 1. Problem Problem Increased protein needs related to Etiology altered skin integrity as evidenced by Signs/Symptoms: acute on chronic wound to left lateral hip, per Wound RN notes. Malnutrition Alert Protein-Calorie Malnutrition N/A Is there a minimum of two criteria No selected? Query Text:Check all the applicable criteria. A minimum of two criteria are recommended for diagnosis of either severe or non-severe malnutrition. Intervention/Recommendation Comments 1. Continue with current diet as it is adequate to meet estimated nutritional needs. 2. Continue vitamin C and zinc supplementation for wound healing. Expected Outcomes/Goals Expected Outcomes/Goals Have pt meet at least 75% of estimated nutritional needs, improved skin integrity.
[2016-12-04] MEDS: Dextromethorphan/Quinidine 20mg/10mg Cap PO SCH ×2 (09:42→20:28)
[2016-12-04] MEDS: Multivitamin w/ Minerals Tab PO SCH (09:43)
[2016-12-04] MEDS: Ferrous Sulfate 325 MG TAB PO SCH (09:43)
--- NOTE | 2016-12-04 22:11 | Progress Notes ---
DATE: 12/04/2016 SUBJECTIVE: The patient was seen, chart reviewed, and discussed with staff. The patient with continued yelling and screaming episodes, asking for coffee, fixated on coffee, gravely disabled, no plans for self care. When I asked about her plans for self-care, she asks for more coffee, disorganized, nonsensical, loud at times. ASSESSMENT: The patient remains symptomatic, __agitated___, not safe for discharge, unable to provide ___for basic needs. No placement confirmed__. JOB# [id number] BAKARI
[2016-12-05] MEDS: Levothyroxine 0.05 Mg Tab PO SCH (06:32)
[2016-12-05] MEDS: Dextromethorphan/Quinidine 20mg/10mg Cap PO SCH ×2 (08:15→20:58)
[2016-12-05] MEDS: Multivitamin w/ Minerals Tab PO SCH (08:15)
[2016-12-05] MEDS: Ferrous Sulfate 325 MG TAB PO SCH (08:17)
[2016-12-05 08:19] LABS: % BASOPHILS 0.3 % (0.0-2.0); % EOSINOPHILS 1.4 % (0.0-5.0); % LYMPHOCYTES 40.7 % (20.0-50.0); % MONOCYTES 12.6 % (2.0-10.0); HEMATOCRIT 33.8 % (35.0-45.0); HEMOGLOBIN 11.5 gm/dL (11.7-15.5); MEAN CELL VOLUME 85.9 fl (81-100); MEAN CORPUSCULAR HEMOGLOBIN 29.1 pg (27.0-31.0); MEAN CORPUSCULAR HGB CONC 33.9 pg (28.0-36.0); MEAN PLATELET VOLUME 9.6 fl; NEUTROPHILE ABSOLUTE 3.4 Th/cmm (1.8-8.0); PLATELET COUNT 179 Th/cmm (150-400); RED BLOOD COUNT 3.94 Mil/cmm (3.80-5.10); RED CELL DISTRIBUTION WIDTH 15.6 % (11.5-20.0); WHITE BLOOD COUNT 7.6 Th/cmm (4.8-10.8)
--- NOTE | 2016-12-05 08:29 | General Progress Note ---
Subjective - Review of Systems Service Date: 12/05/16 Subjective: Awake,alert,afebrile. Objective - Results Result Diagrams: 12/05/16 07:50 11/22/16 06:40 Recent Labs: Laboratory Last Values WBC 7.6 Th/cmm (4.8-10.8) 12/05/16 07:50 RBC 3.94 Mil/cmm (3.80-5.10) 12/05/16 07:50 Hgb 11.5 gm/dL (11.7-15.5) L 12/05/16 07:50 Hct 33.8 % (35.0-45.0) L 12/05/16 07:50 MCV 85.9 fl (81-100) 12/05/16 07:50 MCH 29.1 pg (27.0-31.0) 12/05/16 07:50 MCHC Differential 33.9 pg (28.0-36.0) 12/05/16 07:50 RDW 15.6 % (11.5-20.0) 12/05/16 07:50 Plt Count 179 Th/cmm (150-400) 12/05/16 07:50 MPV 9.6 fl 12/05/16 07:50 Neutrophils % 45.0 % (40.0-80.0) 12/05/16 07:50 Lymphocytes % 40.7 % (20.0-50.0) 12/05/16 07:50 Monocytes % 12.6 % (2.0-10.0) H 12/05/16 07:50 Eosinophils % 1.4 % (0.0-5.0) 12/05/16 07:50 Basophils % 0.3 % (0.0-2.0) 12/05/16 07:50 Sodium 137 mEq/L (136-145) 11/22/16 06:40 Potassium 4.2 mEq/L (3.5-5.1) 11/22/16 06:40 Chloride 104 mEq/L (98-107) 11/22/16 06:40 Carbon Dioxide 28.8 mEq/L (21.0-31.0) 11/22/16 06:40 Anion Gap 8.4 (7.0-16.0) 11/22/16 06:40 BUN 19 mg/dL (7-25) 11/22/16 06:40 Creatinine 0.7 mg/dL (0.6-1.2) 11/22/16 06:40 Est GFR ( Amer) > 60.0 ml/min (>90) 11/22/16 06:40 Est GFR (Non-Af Amer) > 60.0 ml/min 11/22/16 06:40 BUN/Creatinine Ratio 27.1 11/22/16 06:40 Glucose 85 mg/dL (70-105) 11/22/16 06:40 Calcium 9.7 mg/dL (8.6-10.3) 11/22/16 06:40 Free T4 0.97 ng/dL (0.82-1.77) 11/20/16 13:20 Valproic Acid 65.9 ug/mL (50.0-100.0) 11/20/16 13:59 - Physical Exam Vitals and I&O: Vital Signs Temp 0 F 12/05/16 06:59 Pulse 68 12/04/16 21:24 Resp 18 12/04/16 21:24 BP 110/68 12/04/16 21:24 Pulse Ox 95 12/04/16 21:24 Intake & Output 12/04/16 12/05/16 12/05/16 18:59 06:59 18:59 Intake Total 1000 480 Output Total 1 Balance 1000 479 Weight (lbs) 72.575 kg Intake: Oral 1000 480 Output: Urine 1 Other: # Voids 4 3 # Bowel Movements 1 0 Active Medications: Current Medications Acetaminophen (Tylenol) 650 mg PO Q4H PRN PRN Reason: TEMP >100 Stop: 01/19/17 16:04 Ascorbic Acid (Vitamin C) 500 mg PO DAILY [facility] Stop: 01/20/17 08:59 Last Admin: 12/05/16 08:16 Dose: 500 mg Bisacodyl (Dulcolax 10 Mg Supp) 10 mg RC DAILY PRN PRN Reason: Constipation Stop: 01/19/17 16:04 Clonazepam (Klonopin) 1 mg PO BID [facility] Stop: 02/01/17 16:59 Last Admin: 12/05/16 08:16 Dose: 1 mg Clotrimazole (Lotrimin 1% Cream) 1 appl TP BID [facility] Stop: 01/19/17 16:59 Last Admin: 12/05/16 08:18 Dose: 1 appl Dextromethorphan/Quinidine (Nuedexta 20mg-10mg) 1 cap PO Q12HR [facility] Stop: 01/19/17 20:59 Last Admin: 12/05/16 08:15 Dose: 1 cap Diphenhydramine HCl (Benadryl) 25 mg PO Q4HR PRN PRN Reason: Agitation Stop: 01/25/17 05:43 Last Admin: 12/04/16 11:39 Dose: 25 mg Docusate Sodium (Colace) 100 mg PO BID [facility] Stop: 01/19/17 16:59 Last Admin: 12/05/16 08:17 Dose: 100 mg Famotidine (Pepcid) 20 mg PO DAILY [facility] Stop: 01/20/17 08:59 Last Admin: 12/05/16 08:16 Dose: 20 mg Ferrous Sulfate (Iron) 325 mg PO DAILY [facility] Stop: 01/20/17 08:59 Last Admin: 12/05/16 08:17 Dose: 325 mg Folic Acid (Folate) 1 mg PO DAILY [facility] Stop: 01/20/17 08:59 Last Admin: 12/05/16 08:16 Dose: 1 mg Haloperidol (Haldol) 3 mg PO BID [facility] PRN Reason: Protocol Stop: 01/26/17 15:16 Last Admin: 12/05/16 08:16 Dose: 3 mg Haloperidol (Haldol) 5 mg PO Q4HR PRN PRN Reason: Agitation Stop: 02/01/17 10:31 Last Admin: 12/04/16 22:08 Dose: 5 mg Levothyroxine Sodium (Synthroid) 0.05 mg PO QDAC [facility] Stop: 01/21/17 07:29 Last Admin: 12/05/16 06:32 Dose: 0.05 mg Lorazepam (Ativan) 1 mg PO Q6HR PRN; Protocol PRN Reason: Agitation Stop: 01/23/17 10:20 Last Admin: 12/04/16 14:19 Dose: 1 mg Magnesium Hydroxide (Milk Of Magnesia) 30 ml PO PRN PRN PRN Reason: Constipation Stop: 01/19/17 16:04 Nystatin/Triamcinolone Acetonide (Mycolog Ii Cream) 1 appl TP TID [facility] Stop: 01/19/17 20:59 Last Admin: 12/05/16 08:17 Dose: 1 appl Olanzapine (Zyprexa) 15 mg PO BID [facility] PRN Reason: Protocol Stop: 01/25/17 16:59 Last Admin: 12/05/16 08:15 Dose: 15 mg Temazepam (Restoril) 15 mg PO HS PRN; Protocol PRN Reason: Insomnia Stop: 01/19/17 20:59 Last Admin: 12/03/16 20:54 Dose: 15 mg Valproate Sodium (Depakene) 750 mg PO DAILY [facility] PRN Reason: Protocol Stop: 01/29/17 08:59 Last Admin: 12/05/16 08:16 Dose: 750 mg Valproate Sodium (Depakene) 500 mg PO 1400,2100 [facility] PRN Reason: Protocol Stop: 01/28/17 13:59 Last Admin: 12/04/16 20:28 Dose: 500 mg Zinc Sulfate (Zinc Sulfate) 220 mg PO DAILY [facility] Stop: 01/20/17 08:59 Last Admin: 12/05/16 08:17 Dose: 220 mg General: Alert HEENT: Atraumatic, PERRLA, EOMI Neck: Supple Cardiovascular: Regular rate, Normal S1, Normal S2 Lungs: Clear to auscultation Abdomen: Bowel sounds Extremities: no Clubbing, no Cyanosis, no Edema Skin: Other (sore to the left hip) - Procedures Procedures: Procedures Procedure Code Date INDIVID PSYCHOTHERAP NEC 94.39 06/08/08 OTHER GROUP THERAPY 94.44 06/08/08 Assessment/Plan - Problem List Patient Problems: All Active Problems Anemia (Acute) D64.9 Anxiety (Acute) F41.9 EXTREME AGITATION AND LASHING OUT AT STA (Acute) Hyponatremia (Acute) E87.1 Hypothyroid (Acute) E03.9 Pseudobulbar affect (Acute) F48.2 Seizure (Acute) R56.9 - Assessment Assessment: Current Active Problems Problem Status Onset EXTREME AGITATION AND LASHING OUT AT STA Acute psychosis ... admit to geropsyche hyponatremia ... resolved. now normal hypothyroidism ... will start levothyroxine 50mcg PO daily seizure disorder ... stable. on depakote pseudobulbar affect disorder ... stable with medication anemia ... on ferrous sulfate. anxiety disorder Wound to left hip ... will order wound consult, start Clindamycin 300mg PO QID. will continue current treatment. +MRSA nares ... will order Bactroban. - Plan Plan: psychosis ... admit to geropsyche hyponatremia ... resolved. now normal hypothyroidism ... will start levothyroxine 50mcg PO daily seizure disorder ... stable. on depakote pseudobulbar affect disorder ... stable with medication anemia ... on ferrous sulfate. anxiety disorder Wound to left hip ... will order wound consult, start Clindamycin 300mg PO QID. surgical consult with Dr. Chino. +MRSA nares ... will order Bactroban. Nutritional Asmnt/Malnutr-PDOC - Dietary Evaluation Malnutrition Findings (Please click <Entered> for more info): Nutritional Asmnt/Malnutrition Start: 11/22/16 14: 44 Text: Status: Complete Freq: Document 11/23/16 18:42 [facility] (Rec: 11/23/16 18:51 [facility] [id number]) Nutritional Asmnt/Malnutrition Patient General Information Nutritional Screening Consult Diagnosis Psychosis Pertinent Medical Hx/Surgical Hx Pseudobulbar affect disorder, seizure, developmental disability, psychosis, anger, poor impulse control Subjective Information Nutrition Consult for left hip wound received and completed. Pt is a 56-year-old female from [facility] admitted with chief complaint of increased agitation and change in behavior. RD attempted nutrition assessment twice on 11/22 and 11/23. Pt is a poor historian. Current Diet Order/ Nutrition Support Mechanical soft chopped Patient / S.O Can't verbalize diet edu Pertinent Medications Vitamin C, Cleocin, Depakote, Colace, Pepcid, Iron, Folate, Zyperxa, Zinc Sulfate Pertinent Labs Reviewed Nutritional Hx/Data Height 1.68 m Height (Calculated Centimeters) 167.6 Current Weight (lbs) 72.575 kg Weight (Calculated Kilograms) 72.6 Weight (Calculated Grams) 51208.8 [place] Body Weight 130 % [place] Body Weight 123 Weight Status Approriate GI Symptoms GI Symptoms None Food Allergies No Usual diet at home Mechanical soft chopped Skin Integrity/Comment: Faisal 16. Acute on chronic left lateral hip wound. Current %PO Good (75-100%) Estimated Nutritional Goals BEE in Kcals: Using Current wt Calories/Kcals/Kg Based on current wt 72.7 kg with consideration of wound Kcals Calculated 4435-1666 kcals/day (30-35 kcals/kg) Protein: Using Current wt Protein g/kg: Based on current wt 72.7 kg with consideration of wound Protein Calculated 73-87 gm/day (1-1.2 gm/kg) Fluid: ml 3261-3602 ml/day (1 ml/klcal) Nutritional Problem 1. Problem Problem Increased protein needs related to Etiology altered skin integrity as evidenced by Signs/Symptoms: acute on chronic wound to left lateral hip, per Wound RN notes. Malnutrition Alert Protein-Calorie Malnutrition N/A Is there a minimum of two criteria No selected? Query Text:Check all the applicable criteria. A minimum of two criteria are recommended for diagnosis of either severe or non-severe malnutrition. Intervention/Recommendation Comments 1. Continue with current diet as it is adequate to meet estimated nutritional needs. 2. Continue vitamin C and zinc supplementation for wound healing. Expected Outcomes/Goals Expected Outcomes/Goals Have pt meet at least 75% of estimated nutritional needs, improved skin integrity.
[2016-12-05 08:41] LABS: ANION GAP 5.5 (7.0-16.0); BUN - UREA NITROGEN 20 mg/dL (7-25); BUN/CREATININE RATIO 33.3; CALCIUM SERUM 9.7 mg/dL (8.6-10.3); CARBON DIOXIDE 33.8 mEq/L (21.0-31.0); CHLORIDE 101 mEq/L (98-107); CREATININE - SERUM 0.6 mg/dL (0.6-1.2); GLUCOSE 87 mg/dL (70-105); POTASSIUM SERUM 4.3 mEq/L (3.5-5.1); SODIUM SERUM 136 mEq/L (136-145)
[2016-12-05] MEDS ORDERED: Haloperidol Lactate 5 mg/mL 1mL Vial IM ONE (11:50)
[2016-12-05] MEDS ORDERED: Haloperidol Lactate 5 mg/mL 1mL Vial ONE (11:51)
--- NOTE | 2016-12-05 22:34 | Progress Notes ---
DATE: 12/05/2016 SUBJECTIVE: The patient was seen, chart reviewed, and discussed with staff. The patient is currently in the hospital, screaming, yelling, requiring emergency medications today. The patient is still agitated, aggressive, screaming nonsensically, intrusive, confused, disoriented, and ruminative on coffee. She is taking her medications on a positive note and seems to be responding to the Haldol, but certainly remains symptomatic in regards to her screaming and yelling episodes. ASSESSMENT AND PLAN: The patient remains symptomatic, yelling, and screaming. PLAN: We will increase Haldol today. The patient is still quite symptomatic and psychotic appearing. JOB# [id number]
[2016-12-06] MEDS: Levothyroxine 0.05 Mg Tab PO SCH (07:42)
--- NOTE | 2016-12-06 08:12 | General Progress Note ---
Subjective - Review of Systems Service Date: 12/06/16 Subjective: Awake,alert,afebrile. Objective - Results Result Diagrams: 12/05/16 07:50 12/05/16 07:50 Recent Labs: Laboratory Last Values WBC 7.6 Th/cmm (4.8-10.8) 12/05/16 07:50 RBC 3.94 Mil/cmm (3.80-5.10) 12/05/16 07:50 Hgb 11.5 gm/dL (11.7-15.5) L 12/05/16 07:50 Hct 33.8 % (35.0-45.0) L 12/05/16 07:50 MCV 85.9 fl (81-100) 12/05/16 07:50 MCH 29.1 pg (27.0-31.0) 12/05/16 07:50 MCHC Differential 33.9 pg (28.0-36.0) 12/05/16 07:50 RDW 15.6 % (11.5-20.0) 12/05/16 07:50 Plt Count 179 Th/cmm (150-400) 12/05/16 07:50 MPV 9.6 fl 12/05/16 07:50 Neutrophils % 45.0 % (40.0-80.0) 12/05/16 07:50 Lymphocytes % 40.7 % (20.0-50.0) 12/05/16 07:50 Monocytes % 12.6 % (2.0-10.0) H 12/05/16 07:50 Eosinophils % 1.4 % (0.0-5.0) 12/05/16 07:50 Basophils % 0.3 % (0.0-2.0) 12/05/16 07:50 Sodium 136 mEq/L (136-145) 12/05/16 07:50 Potassium 4.3 mEq/L (3.5-5.1) 12/05/16 07:50 Chloride 101 mEq/L (98-107) 12/05/16 07:50 Carbon Dioxide 33.8 mEq/L (21.0-31.0) H 12/05/16 07:50 Anion Gap 5.5 (7.0-16.0) L 12/05/16 07:50 BUN 20 mg/dL (7-25) 12/05/16 07:50 Creatinine 0.6 mg/dL (0.6-1.2) 12/05/16 07:50 Est GFR ( Amer) > 60.0 ml/min (>90) 12/05/16 07:50 Est GFR (Non-Af Amer) > 60.0 ml/min 12/05/16 07:50 BUN/Creatinine Ratio 33.3 12/05/16 07:50 Glucose 87 mg/dL (70-105) 12/05/16 07:50 Calcium 9.7 mg/dL (8.6-10.3) 12/05/16 07:50 Free T4 0.97 ng/dL (0.82-1.77) 11/20/16 13:20 TSH 2.96 uIU/ml (0.34-5.60) 12/05/16 07:50 Valproic Acid 65.9 ug/mL (50.0-100.0) 11/20/16 13:59 - Physical Exam Vitals and I&O: Vital Signs Temp 98.1 F 12/06/16 06:44 Pulse 80 12/06/16 06:44 Resp 18 12/06/16 06:44 BP 99/56 12/06/16 06:44 Pulse Ox 98 12/06/16 06:44 Intake & Output 12/05/16 12/06/16 12/06/16 18:59 06:59 18:59 Intake Total 2400 240 Balance 2400 240 Weight (lbs) 72.575 kg Intake: Oral 2400 240 Other: # Voids 5 3 # Bowel Movements 1 0 Active Medications: Current Medications Acetaminophen (Tylenol) 650 mg PO Q4H PRN PRN Reason: TEMP >100 Stop: 01/19/17 16:04 Alprazolam (Xanax) 1 mg PO Q4HR PRN; Protocol PRN Reason: Anxiety Stop: 02/03/17 14:18 Ascorbic Acid (Vitamin C) 500 mg PO DAILY [facility] Stop: 01/20/17 08:59 Last Admin: 12/05/16 08:16 Dose: 500 mg Bisacodyl (Dulcolax 10 Mg Supp) 10 mg RC DAILY PRN PRN Reason: Constipation Stop: 01/19/17 16:04 Clonazepam (Klonopin) 1 mg PO BID [facility] Stop: 02/01/17 16:59 Last Admin: 12/05/16 17:02 Dose: 1 mg Clotrimazole (Lotrimin 1% Cream) 1 appl TP BID [facility] Stop: 01/19/17 16:59 Last Admin: 12/05/16 17:02 Dose: Not Given Dextromethorphan/Quinidine (Nuedexta 20mg-10mg) 1 cap PO Q12HR [facility] Stop: 01/19/17 20:59 Last Admin: 12/05/16 20:58 Dose: 1 cap Diphenhydramine HCl (Benadryl) 25 mg PO Q4HR PRN PRN Reason: Agitation Stop: 01/25/17 05:43 Last Admin: 12/04/16 11:39 Dose: 25 mg Docusate Sodium (Colace) 100 mg PO BID [facility] Stop: 01/19/17 16:59 Last Admin: 12/05/16 17:01 Dose: 100 mg Famotidine (Pepcid) 20 mg PO DAILY [facility] Stop: 01/20/17 08:59 Last Admin: 12/05/16 08:16 Dose: 20 mg Ferrous Sulfate (Iron) 325 mg PO DAILY [facility] Stop: 01/20/17 08:59 Last Admin: 12/05/16 08:17 Dose: 325 mg Folic Acid (Folate) 1 mg PO DAILY [facility] Stop: 01/20/17 08:59 Last Admin: 12/05/16 08:16 Dose: 1 mg Haloperidol (Haldol) 5 mg PO Q4HR PRN PRN Reason: Agitation Stop: 02/01/17 10:31 Last Admin: 12/04/16 22:08 Dose: 5 mg Haloperidol (Haldol) 5 mg PO BID [facility]EV[facility] PRN Reason: Protocol Stop: 02/03/17 16:59 Last Admin: 12/05/16 17:01 Dose: 5 mg Levothyroxine Sodium (Synthroid) 0.05 mg PO QDAC LEVY Stop: 01/21/17 07:29 Last Admin: 12/06/16 07:42 Dose: 0.05 mg Lorazepam (Ativan) 1 mg PO Q6HR PRN; Protocol PRN Reason: Agitation Stop: 01/23/17 10:20 Last Admin: 12/06/16 04:32 Dose: 1 mg Magnesium Hydroxide (Milk Of Magnesia) 30 ml PO PRN PRN PRN Reason: Constipation Stop: 01/19/17 16:04 Nystatin/Triamcinolone Acetonide (Mycolog Ii Cream) 1 appl TP TID LEVY Stop: 01/19/17 20:59 Last Admin: 12/05/16 20:58 Dose: 1 appl Olanzapine (Zyprexa) 15 mg PO BID [facility] PRN Reason: Protocol Stop: 01/25/17 16:59 Last Admin: 12/05/16 17:02 Dose: 15 mg Temazepam (Restoril) 15 mg PO HS PRN; Protocol PRN Reason: Insomnia Stop: 01/19/17 20:59 Last Admin: 12/03/16 20:54 Dose: 15 mg Valproate Sodium (Depakene) 750 mg PO DAILY [facility] PRN Reason: Protocol Stop: 01/29/17 08:59 Last Admin: 12/05/16 08:16 Dose: 750 mg Valproate Sodium (Depakene) 500 mg PO 1400,2100 LEVY PRN Reason: Protocol Stop: 01/28/17 13:59 Last Admin: 12/05/16 20:58 Dose: 500 mg Zinc Sulfate (Zinc Sulfate) 220 mg PO DAILY [facility] Stop: 01/20/17 08:59 Last Admin: 12/05/16 08:17 Dose: 220 mg General: Alert HEENT: Atraumatic, PERRLA, EOMI Neck: Supple Cardiovascular: Regular rate, Normal S1, Normal S2 Lungs: Clear to auscultation Abdomen: Bowel sounds Extremities: no Clubbing, no Cyanosis, no Edema Skin: Other (sore to the left hip) - Procedures Procedures: Procedures Procedure Code Date INDIVID PSYCHOTHERAP NEC 94.39 06/08/08 OTHER GROUP THERAPY 94.44 06/08/08 Assessment/Plan - Problem List Patient Problems: All Active Problems Anemia (Acute) D64.9 Anxiety (Acute) F41.9 EXTREME AGITATION AND LASHING OUT AT STA (Acute) Hyponatremia (Acute) E87.1 Hypothyroid (Acute) E03.9 Pseudobulbar affect (Acute) F48.2 Seizure (Acute) R56.9 - Assessment Assessment: Current Active Problems Problem Status Onset EXTREME AGITATION AND LASHING OUT AT STA Acute psychosis ... admit to geropsyche hyponatremia ... resolved. now normal hypothyroidism ... will start levothyroxine 50mcg PO daily seizure disorder ... stable. on depakote pseudobulbar affect disorder ... stable with medication anemia ... on ferrous sulfate. anxiety disorder Wound to left hip ... will order wound consult, start Clindamycin 300mg PO QID. will continue current treatment. +MRSA nares ... will order Bactroban nasal. - Plan Plan: psychosis ... admit to geropsyche hyponatremia ... resolved. now normal hypothyroidism ... will start levothyroxine 50mcg PO daily seizure disorder ... stable. on depakote pseudobulbar affect disorder ... stable with medication anemia ... on ferrous sulfate. anxiety disorder Wound to left hip ... will order wound consult, start Clindamycin 300mg PO QID. surgical consult with Dr. Chino. +MRSA nares ... will order Bactroban nasal application. Nutritional Asmnt/Malnutr-PDOC - Dietary Evaluation Malnutrition Findings (Please click <Entered> for more info): Nutritional Asmnt/Malnutrition Start: 11/22/16 14: 44 Text: Status: Complete Freq: Document 11/23/16 18:42 [facility] (Rec: 11/23/16 18:51 [facility] [id number]) Nutritional Asmnt/Malnutrition Patient General Information Nutritional Screening Consult Diagnosis Psychosis Pertinent Medical Hx/Surgical Hx Pseudobulbar affect disorder, seizure, developmental disability, psychosis, anger, poor impulse control Subjective Information Nutrition Consult for left hip wound received and completed. Pt is a 56-year-old female from [facility] admitted with chief complaint of increased agitation and change in behavior. RD attempted nutrition assessment twice on 11/22 and 11/23. Pt is a poor historian. Current Diet Order/ Nutrition Support Mechanical soft chopped Patient / S.O Can't verbalize diet edu Pertinent Medications Vitamin C, Cleocin, Depakote, Colace, Pepcid, Iron, Folate, Zyperxa, Zinc Sulfate Pertinent Labs Reviewed Nutritional Hx/Data Height 1.68 m Height (Calculated Centimeters) 167.6 Current Weight (lbs) 72.575 kg Weight (Calculated Kilograms) 72.6 Weight (Calculated Grams) 83179.8 [place] Body Weight 130 % [place] Body Weight 123 Weight Status Approriate GI Symptoms GI Symptoms None Food Allergies No Usual diet at home Mechanical soft chopped Skin Integrity/Comment: Faisal 16. Acute on chronic left lateral hip wound. Current %PO Good (75-100%) Estimated Nutritional Goals BEE in Kcals: Using Current wt Calories/Kcals/Kg Based on current wt 72.7 kg with consideration of wound Kcals Calculated 5304-6652 kcals/day (30-35 kcals/kg) Protein: Using Current wt Protein g/kg: Based on current wt 72.7 kg with consideration of wound Protein Calculated 73-87 gm/day (1-1.2 gm/kg) Fluid: ml 0324-3794 ml/day (1 ml/klcal) Nutritional Problem 1. Problem Problem Increased protein needs related to Etiology altered skin integrity as evidenced by Signs/Symptoms: acute on chronic wound to left lateral hip, per Wound RN notes. Malnutrition Alert Protein-Calorie Malnutrition N/A Is there a minimum of two criteria No selected? Query Text:Check all the applicable criteria. A minimum of two criteria are recommended for diagnosis of either severe or non-severe malnutrition. Intervention/Recommendation Comments 1. Continue with current diet as it is adequate to meet estimated nutritional needs. 2. Continue vitamin C and zinc supplementation for wound healing. Expected Outcomes/Goals Expected Outcomes/Goals Have pt meet at least 75% of estimated nutritional needs, improved skin integrity.
[2016-12-06] MEDS: Ferrous Sulfate 325 MG TAB PO SCH (08:40)
[2016-12-06] MEDS: Dextromethorphan/Quinidine 20mg/10mg Cap PO SCH ×2 (08:42→21:05)
[2016-12-06] MEDS: Multivitamin w/ Minerals Tab PO SCH (08:44)
[2016-12-06] MEDS: HALOPERIDOL PO SCH (16:40)
--- NOTE | 2016-12-06 23:50 | Progress Notes ---
DATE: 12/06/2016 SUBJECTIVE: The patient was seen, chart reviewed, and discussed with staff. The patient remains symptomatic, still with yelling episodes, screaming episodes, threw a tray. The patient remains aggressive, impulsive, unpredictable, and perseverative, wanting to leave, but gravely disabled. Nowhere to send her to. Difficult placement. Sleeping well, eating well, and tolerant of medications. Seems to be somewhat responsive to Haldol. ASSESSMENT: The patient remains symptomatic, psychosis, impulsive, unpredictable, violent, and aggressive. PLAN: We will continue to monitor given the severity of her ongoing symptoms. She is not safe for discharge. JOB# [id number]
[2016-12-07] MEDS: Levothyroxine 0.05 Mg Tab PO SCH (06:48)
--- NOTE | 2016-12-07 08:06 | General Progress Note ---
Subjective - Review of Systems Service Date: 12/07/16 Subjective: Awake,alert,afebrile. Objective - Results Result Diagrams: 12/05/16 07:50 12/05/16 07:50 Recent Labs: Laboratory Last Values WBC 7.6 Th/cmm (4.8-10.8) 12/05/16 07:50 RBC 3.94 Mil/cmm (3.80-5.10) 12/05/16 07:50 Hgb 11.5 gm/dL (11.7-15.5) L 12/05/16 07:50 Hct 33.8 % (35.0-45.0) L 12/05/16 07:50 MCV 85.9 fl (81-100) 12/05/16 07:50 MCH 29.1 pg (27.0-31.0) 12/05/16 07:50 MCHC Differential 33.9 pg (28.0-36.0) 12/05/16 07:50 RDW 15.6 % (11.5-20.0) 12/05/16 07:50 Plt Count 179 Th/cmm (150-400) 12/05/16 07:50 MPV 9.6 fl 12/05/16 07:50 Neutrophils % 45.0 % (40.0-80.0) 12/05/16 07:50 Lymphocytes % 40.7 % (20.0-50.0) 12/05/16 07:50 Monocytes % 12.6 % (2.0-10.0) H 12/05/16 07:50 Eosinophils % 1.4 % (0.0-5.0) 12/05/16 07:50 Basophils % 0.3 % (0.0-2.0) 12/05/16 07:50 Sodium 136 mEq/L (136-145) 12/05/16 07:50 Potassium 4.3 mEq/L (3.5-5.1) 12/05/16 07:50 Chloride 101 mEq/L (98-107) 12/05/16 07:50 Carbon Dioxide 33.8 mEq/L (21.0-31.0) H 12/05/16 07:50 Anion Gap 5.5 (7.0-16.0) L 12/05/16 07:50 BUN 20 mg/dL (7-25) 12/05/16 07:50 Creatinine 0.6 mg/dL (0.6-1.2) 12/05/16 07:50 Est GFR ( Amer) > 60.0 ml/min (>90) 12/05/16 07:50 Est GFR (Non-Af Amer) > 60.0 ml/min 12/05/16 07:50 BUN/Creatinine Ratio 33.3 12/05/16 07:50 Glucose 87 mg/dL (70-105) 12/05/16 07:50 Calcium 9.7 mg/dL (8.6-10.3) 12/05/16 07:50 Free T4 0.97 ng/dL (0.82-1.77) 11/20/16 13:20 TSH 2.96 uIU/ml (0.34-5.60) 12/05/16 07:50 Valproic Acid 65.9 ug/mL (50.0-100.0) 11/20/16 13:59 - Physical Exam Vitals and I&O: Vital Signs Temp 97.3 F 12/07/16 06:34 Pulse 87 12/07/16 06:34 Resp 18 12/07/16 06:34 BP 113/73 12/07/16 06:34 Pulse Ox 97 12/07/16 06:34 Intake & Output 12/06/16 12/07/16 12/07/16 18:59 06:59 18:59 Intake Total 3400 120 Balance 3400 120 Intake: Oral 3400 120 Other: # Voids 5 3 # Bowel Movements 0 Active Medications: Current Medications Acetaminophen (Tylenol) 650 mg PO Q4H PRN PRN Reason: TEMP >100 Stop: 01/19/17 16:04 Alprazolam (Xanax) 1 mg PO Q4HR PRN; Protocol PRN Reason: Anxiety Stop: 02/03/17 14:18 Ascorbic Acid (Vitamin C) 500 mg PO DAILY [facility] Stop: 01/20/17 08:59 Last Admin: 12/06/16 08:42 Dose: 500 mg Bisacodyl (Dulcolax 10 Mg Supp) 10 mg RC DAILY PRN PRN Reason: Constipation Stop: 01/19/17 16:04 Clonazepam (Klonopin) 1 mg PO BID [facility] Stop: 02/01/17 16:59 Last Admin: 12/06/16 16:41 Dose: 1 mg Clotrimazole (Lotrimin 1% Cream) 1 appl TP BID LEVY Stop: 01/19/17 16:59 Last Admin: 12/06/16 17:43 Dose: Not Given Dextromethorphan/Quinidine (Nuedexta 20mg-10mg) 1 cap PO Q12HR LEVY Stop: 01/19/17 20:59 Last Admin: 12/06/16 21:05 Dose: 1 cap Diphenhydramine HCl (Benadryl) 25 mg PO Q4HR PRN PRN Reason: Agitation Stop: 01/25/17 05:43 Last Admin: 12/04/16 11:39 Dose: 25 mg Docusate Sodium (Colace) 100 mg PO BID LEVY Stop: 01/19/17 16:59 Last Admin: 12/06/16 16:41 Dose: 100 mg Famotidine (Pepcid) 20 mg PO DAILY LEVY Stop: 01/20/17 08:59 Last Admin: 12/06/16 08:41 Dose: 20 mg Ferrous Sulfate (Iron) 325 mg PO DAILY LEVY Stop: 01/20/17 08:59 Last Admin: 12/06/16 08:40 Dose: 325 mg Folic Acid (Folate) 1 mg PO DAILY LEVY Stop: 01/20/17 08:59 Last Admin: 12/06/16 08:44 Dose: 1 mg Haloperidol (Haldol) 5 mg PO Q4HR PRN PRN Reason: Agitation Stop: 02/01/17 10:31 Last Admin: 12/04/16 22:08 Dose: 5 mg Haloperidol 5 mg/ Haloperidol (1 mg) 6 mg PO BID LEVY Stop: 02/04/17 16:59 Last Admin: 12/06/16 16:40 Dose: 6 mg Levothyroxine Sodium (Synthroid) 0.05 mg PO QDAC LEVY Stop: 01/21/17 07:29 Last Admin: 12/07/16 06:48 Dose: 0.05 mg Lorazepam (Ativan) 1 mg PO Q6HR PRN; Protocol PRN Reason: Agitation Stop: 01/23/17 10:20 Last Admin: 12/06/16 13:08 Dose: 1 mg Magnesium Hydroxide (Milk Of Magnesia) 30 ml PO PRN PRN PRN Reason: Constipation Stop: 01/19/17 16:04 Nystatin/Triamcinolone Acetonide (Mycolog Ii Cream) 1 appl TP TID LEVY Stop: 01/19/17 20:59 Last Admin: 12/06/16 21:05 Dose: 1 appl Olanzapine (Zyprexa) 15 mg PO BID LEVY PRN Reason: Protocol Stop: 01/25/17 16:59 Last Admin: 12/06/16 16:41 Dose: 15 mg Temazepam (Restoril) 15 mg PO HS PRN; Protocol PRN Reason: Insomnia Stop: 01/19/17 20:59 Last Admin: 12/03/16 20:54 Dose: 15 mg Valproate Sodium (Depakene) 750 mg PO DAILY LEVY PRN Reason: Protocol Stop: 01/29/17 08:59 Last Admin: 12/06/16 08:38 Dose: 750 mg Valproate Sodium (Depakene) 500 mg PO 1400,2100 LEVY PRN Reason: Protocol Stop: 01/28/17 13:59 Last Admin: 12/06/16 21:05 Dose: 500 mg Zinc Sulfate (Zinc Sulfate) 220 mg PO DAILY LEVY Stop: 01/20/17 08:59 Last Admin: 12/06/16 08:41 Dose: 220 mg General: Alert HEENT: Atraumatic, PERRLA, EOMI Neck: Supple Cardiovascular: Regular rate, Normal S1, Normal S2 Lungs: Clear to auscultation Abdomen: Bowel sounds Extremities: no Clubbing, no Cyanosis, no Edema Skin: Other (sore to the left hip) - Procedures Procedures: Procedures Procedure Code Date INDIVID PSYCHOTHERAP NEC 94.39 06/08/08 OTHER GROUP THERAPY 94.44 06/08/08 Assessment/Plan - Problem List Patient Problems: All Active Problems Anemia (Acute) D64.9 Anxiety (Acute) F41.9 EXTREME AGITATION AND LASHING OUT AT STA (Acute) Hyponatremia (Acute) E87.1 Hypothyroid (Acute) E03.9 Pseudobulbar affect (Acute) F48.2 Seizure (Acute) R56.9 - Assessment Assessment: Current Active Problems Problem Status Onset EXTREME AGITATION AND LASHING OUT AT STA Acute psychosis ... admit to geropsyche hyponatremia ... resolved. now normal hypothyroidism ... will start levothyroxine 50mcg PO daily seizure disorder ... stable. on depakote pseudobulbar affect disorder ... stable with medication anemia ... on ferrous sulfate. anxiety disorder Wound to left hip ... will order wound consult, start Clindamycin 300mg PO QID. will continue current treatment. +MRSA nares ... will order Bactroban nasal. - Plan Plan: psychosis ... admit to geropsyche hyponatremia ... resolved. now normal hypothyroidism ... will start levothyroxine 50mcg PO daily seizure disorder ... stable. on depakote pseudobulbar affect disorder ... stable with medication anemia ... on ferrous sulfate. anxiety disorder Wound to left hip ... will order wound consult, start Clindamycin 300mg PO QID. surgical consult with Dr. Chino. +MRSA nares ... will order Bactroban nasal application. Nutritional Asmnt/Malnutr-PDOC - Dietary Evaluation Malnutrition Findings (Please click <Entered> for more info): Nutritional Asmnt/Malnutrition Start: 11/22/16 14: 44 Text: Status: Complete Freq: Document 11/23/16 18:42 [facility] (Rec: 11/23/16 18:51 [facility] [id number]) Nutritional Asmnt/Malnutrition Patient General Information Nutritional Screening Consult Diagnosis Psychosis Pertinent Medical Hx/Surgical Hx Pseudobulbar affect disorder, seizure, developmental disability, psychosis, anger, poor impulse control Subjective Information Nutrition Consult for left hip wound received and completed. Pt is a 56-year-old female from [facility] admitted with chief complaint of increased agitation and change in behavior. RD attempted nutrition assessment twice on 11/22 and 11/23. Pt is a poor historian. Current Diet Order/ Nutrition Support Mechanical soft chopped Patient / S.O Can't verbalize diet edu Pertinent Medications Vitamin C, Cleocin, Depakote, Colace, Pepcid, Iron, Folate, Zyperxa, Zinc Sulfate Pertinent Labs Reviewed Nutritional Hx/Data Height 1.68 m Height (Calculated Centimeters) 167.6 Current Weight (lbs) 72.575 kg Weight (Calculated Kilograms) 72.6 Weight (Calculated Grams) 66361.8 [place] Body Weight 130 % [place] Body Weight 123 Weight Status Approriate GI Symptoms GI Symptoms None Food Allergies No Usual diet at home Mechanical soft chopped Skin Integrity/Comment: Faisal 16. Acute on chronic left lateral hip wound. Current %PO Good (75-100%) Estimated Nutritional Goals BEE in Kcals: Using Current wt Calories/Kcals/Kg Based on current wt 72.7 kg with consideration of wound Kcals Calculated 5726-7598 kcals/day (30-35 kcals/kg) Protein: Using Current wt Protein g/kg: Based on current wt 72.7 kg with consideration of wound Protein Calculated 73-87 gm/day (1-1.2 gm/kg) Fluid: ml 7789-4120 ml/day (1 ml/klcal) Nutritional Problem 1. Problem Problem Increased protein needs related to Etiology altered skin integrity as evidenced by Signs/Symptoms: acute on chronic wound to left lateral hip, per Wound RN notes. Malnutrition Alert Protein-Calorie Malnutrition N/A Is there a minimum of two criteria No selected? Query Text:Check all the applicable criteria. A minimum of two criteria are recommended for diagnosis of either severe or non-severe malnutrition. Intervention/Recommendation Comments 1. Continue with current diet as it is adequate to meet estimated nutritional needs. 2. Continue vitamin C and zinc supplementation for wound healing. Expected Outcomes/Goals Expected Outcomes/Goals Have pt meet at least 75% of estimated nutritional needs, improved skin integrity.
[2016-12-07] MEDS: HALOPERIDOL PO SCH ×2 (08:40→16:24)
[2016-12-07] MEDS: Dextromethorphan/Quinidine 20mg/10mg Cap PO SCH ×2 (08:41→20:24)
[2016-12-07] MEDS: Multivitamin w/ Minerals Tab PO SCH (08:41)
[2016-12-07] MEDS: Ferrous Sulfate 325 MG TAB PO SCH (08:51)
--- NOTE | 2016-12-07 22:19 | Progress Notes ---
DATE: 12/07/2016 SUBJECTIVE: The patient seen, chart reviewed, discussed with staff. The patient remains symptomatic, yelling, screaming, still throwing objects, not safe for discharge, aggressive, agitated, ruminative, asking for coffee over and over again. Staff concerned, unable to find her a place to go. She cannot care for her basic food, clothing, and fci. Developmentally disabled. Medications are being titrated. No side effects. She has been compliant, eating with prompting. ASSESSMENT: The patient remains symptomatic, agitated, screaming, yelling episodes. Not safe for a lower level of care. PLAN: We will continue to monitor, continue to titrate medications. [facility]# [id number]
[2016-12-08] MEDS: Levothyroxine 0.05 Mg Tab PO SCH (06:39)
[2016-12-08] MEDS: Dextromethorphan/Quinidine 20mg/10mg Cap PO SCH ×2 (08:23→21:30)
[2016-12-08] MEDS: Ferrous Sulfate 325 MG TAB PO SCH (08:23)
[2016-12-08] MEDS: Multivitamin w/ Minerals Tab PO SCH (08:23)
--- NOTE | 2016-12-08 10:59 | Progress Notes ---
DATE: 12/08/2016 SUBJECTIVE: The patient seen, chart reviewed, and discussed with staff. The patient is still yelling, screaming, ruminative, asking for coffee over and over and over again. Currently on high doses of Zyprexa and Haldol is being titrated as well, still remains symptomatic, bizarre, screaming episodes, aggressive, at times resistant to care. ASSESSMENT: The patient is gravely disabled, still aggressive, yelling, screaming disturbing the milieu, ruminative. PLAN: Increase Haldol today. Given the severity of her ongoing symptoms, she is not safe for discharge. [facility]# [id number]
[2016-12-08] MEDS: Venelex 60gm Tube TP SCH (13:17)
[2016-12-08] MEDS: HALOPERIDOL PO SCH (16:46)
[2016-12-09] MEDS: Levothyroxine 0.05 Mg Tab PO SCH (08:00)
[2016-12-09] MEDS: Venelex 60gm Tube TP SCH (09:10)
[2016-12-09] MEDS: HALOPERIDOL PO SCH ×2 (09:12→16:55)
[2016-12-09] MEDS: Ferrous Sulfate 325 MG TAB PO SCH (09:12)
[2016-12-09] MEDS: Multivitamin w/ Minerals Tab PO SCH (09:12)
[2016-12-09] MEDS: Dextromethorphan/Quinidine 20mg/10mg Cap PO SCH ×2 (09:12→21:37)
--- NOTE | 2016-12-09 12:26 | Progress Notes ---
DATE: 12/09/2016 SUBJECTIVE: The patient was seen, chart reviewed, discussed with staff. The patient with continued yelling episodes, screaming episodes, agitated, stating the milieu. The patient with little response to current medication regimen, currently on reasonable doses of Zyprexa and Depakote also Haldol was added to her regimen. She is already Nuedexta, Klonopin 1 mg 3 times a day. The patient is quite difficult in regards to her treatments, agreeable to less yelling, but she continues to yell, screaming, ruminative. I am not able to discharge her to a lower level of care therefore I _will c/t tx____ ongoing symptoms and behavioral disturbances. ASSESSMENT: The patient remains symptomatic, yelling, screaming and not contacting for safety. PLAN: We will continue to monitor and titrate Klonopin. The patient is not safe for discharge. JOB# [id number] [facility]atan
[2016-12-10] MEDS: Levothyroxine 0.05 Mg Tab PO SCH (06:44)
--- NOTE | 2016-12-10 07:14 | General Progress Note ---
Subjective - Review of Systems Service Date: 12/10/16 Subjective: Awake,alert,afebrile. Objective - Results Result Diagrams: 12/05/16 07:50 12/05/16 07:50 Recent Labs: Laboratory Last Values WBC 7.6 Th/cmm (4.8-10.8) 12/05/16 07:50 RBC 3.94 Mil/cmm (3.80-5.10) 12/05/16 07:50 Hgb 11.5 gm/dL (11.7-15.5) L 12/05/16 07:50 Hct 33.8 % (35.0-45.0) L 12/05/16 07:50 MCV 85.9 fl (81-100) 12/05/16 07:50 MCH 29.1 pg (27.0-31.0) 12/05/16 07:50 MCHC Differential 33.9 pg (28.0-36.0) 12/05/16 07:50 RDW 15.6 % (11.5-20.0) 12/05/16 07:50 Plt Count 179 Th/cmm (150-400) 12/05/16 07:50 MPV 9.6 fl 12/05/16 07:50 Neutrophils % 45.0 % (40.0-80.0) 12/05/16 07:50 Lymphocytes % 40.7 % (20.0-50.0) 12/05/16 07:50 Monocytes % 12.6 % (2.0-10.0) H 12/05/16 07:50 Eosinophils % 1.4 % (0.0-5.0) 12/05/16 07:50 Basophils % 0.3 % (0.0-2.0) 12/05/16 07:50 Sodium 136 mEq/L (136-145) 12/05/16 07:50 Potassium 4.3 mEq/L (3.5-5.1) 12/05/16 07:50 Chloride 101 mEq/L (98-107) 12/05/16 07:50 Carbon Dioxide 33.8 mEq/L (21.0-31.0) H 12/05/16 07:50 Anion Gap 5.5 (7.0-16.0) L 12/05/16 07:50 BUN 20 mg/dL (7-25) 12/05/16 07:50 Creatinine 0.6 mg/dL (0.6-1.2) 12/05/16 07:50 Est GFR ( Amer) > 60.0 ml/min (>90) 12/05/16 07:50 Est GFR (Non-Af Amer) > 60.0 ml/min 12/05/16 07:50 BUN/Creatinine Ratio 33.3 12/05/16 07:50 Glucose 87 mg/dL (70-105) 12/05/16 07:50 Calcium 9.7 mg/dL (8.6-10.3) 12/05/16 07:50 Free T4 0.97 ng/dL (0.82-1.77) 11/20/16 13:20 TSH 2.96 uIU/ml (0.34-5.60) 12/05/16 07:50 Valproic Acid 65.9 ug/mL (50.0-100.0) 11/20/16 13:59 - Physical Exam Vitals and I&O: Vital Signs Temp 98.0 F 12/10/16 06:39 Pulse 69 12/10/16 06:39 Resp 20 12/10/16 06:39 BP 104/64 12/10/16 06:39 Pulse Ox 98 12/10/16 06:39 Intake & Output 12/09/16 12/10/16 12/10/16 18:59 06:59 18:59 Intake Total 1400 420 Balance 1400 420 Intake: Oral 1400 420 Other: # Voids 6 3 # Bowel Movements 1 1 Active Medications: Current Medications Acetaminophen (Tylenol) 650 mg PO Q4H PRN PRN Reason: TEMP >100 Stop: 01/19/17 16:04 Alprazolam (Xanax) 1 mg PO Q4HR PRN; Protocol PRN Reason: Anxiety Stop: 02/03/17 14:18 Ascorbic Acid (Vitamin C) 500 mg PO DAILY [facility] Stop: 01/20/17 08:59 Last Admin: 12/09/16 09:12 Dose: 500 mg Bisacodyl (Dulcolax 10 Mg Supp) 10 mg RC DAILY PRN PRN Reason: Constipation Stop: 01/19/17 16:04 Clonazepam (Klonopin) 1 mg PO BID [facility] Stop: 02/01/17 16:59 Last Admin: 12/09/16 16:55 Dose: 1 mg Clonazepam (Klonopin) 0.5 mg PO 1200 [facility] PRN Reason: Protocol Stop: 02/07/17 11:59 Last Admin: 12/09/16 12:13 Dose: 0.5 mg Clotrimazole (Lotrimin 1% Cream) 1 appl TP BID [facility] Stop: 01/19/17 16:59 Last Admin: 12/09/16 16:54 Dose: 1 appl Dextromethorphan/Quinidine (Nuedexta 20mg-10mg) 1 cap PO Q12HR [facility] Stop: 01/19/17 20:59 Last Admin: 12/09/16 21:37 Dose: 1 cap Diphenhydramine HCl (Benadryl) 25 mg PO Q4HR PRN PRN Reason: Agitation Stop: 01/25/17 05:43 Last Admin: 12/04/16 11:39 Dose: 25 mg Docusate Sodium (Colace) 100 mg PO BID [facility] Stop: 01/19/17 16:59 Last Admin: 12/09/16 16:55 Dose: 100 mg Famotidine (Pepcid) 20 mg PO DAILY [facility] Stop: 01/20/17 08:59 Last Admin: 12/09/16 09:11 Dose: 20 mg Ferrous Sulfate (Iron) 325 mg PO DAILY [facility] Stop: 01/20/17 08:59 Last Admin: 12/09/16 09:12 Dose: 325 mg Folic Acid (Folate) 1 mg PO DAILY [facility] Stop: 01/20/17 08:59 Last Admin: 12/09/16 09:12 Dose: 1 mg Haloperidol (Haldol) 5 mg PO Q4HR PRN PRN Reason: Agitation Stop: 02/01/17 10:31 Last Admin: 12/09/16 12:13 Dose: 5 mg Haloperidol 5 mg/ Haloperidol (2 mg) 7 mg PO BID [facility] Stop: 02/06/17 16:59 Last Admin: 12/09/16 16:55 Dose: 7 mg Levothyroxine Sodium (Synthroid) 0.05 mg PO QDAC [facility] Stop: 01/21/17 07:29 Last Admin: 12/10/16 06:44 Dose: 0.05 mg Lorazepam (Ativan) 1 mg PO Q6HR PRN; Protocol PRN Reason: Agitation Stop: 01/23/17 10:20 Last Admin: 12/09/16 09:12 Dose: 1 mg Magnesium Hydroxide (Milk Of Magnesia) 30 ml PO PRN PRN PRN Reason: Constipation Stop: 01/19/17 16:04 Nystatin/Triamcinolone Acetonide (Mycolog Ii Cream) 1 appl TP TID [facility] Stop: 01/19/17 20:59 Last Admin: 12/09/16 21:11 Dose: 1 appl Olanzapine (Zyprexa) 15 mg PO BID [facility] PRN Reason: Protocol Stop: 01/25/17 16:59 Last Admin: 12/09/16 16:55 Dose: 15 mg Temazepam (Restoril) 15 mg PO HS PRN; Protocol PRN Reason: Insomnia Stop: 01/19/17 20:59 Last Admin: 12/09/16 21:10 Dose: 15 mg Valproate Sodium (Depakene) 750 mg PO DAILY [facility] PRN Reason: Protocol Stop: 01/29/17 08:59 Last Admin: 12/09/16 09:10 Dose: 750 mg Valproate Sodium (Depakene) 500 mg PO 1400,2100 [facility] PRN Reason: Protocol Stop: 01/28/17 13:59 Last Admin: 12/09/16 21:10 Dose: 500 mg Zinc Sulfate (Zinc Sulfate) 220 mg PO DAILY [facility] Stop: 01/20/17 08:59 Last Admin: 12/09/16 09:12 Dose: 220 mg General: Alert HEENT: Atraumatic, PERRLA, EOMI Neck: Supple Cardiovascular: Regular rate, Normal S1, Normal S2 Lungs: Clear to auscultation Abdomen: Bowel sounds Extremities: no Clubbing, no Cyanosis, no Edema Skin: Other (sore to the left hip) - Procedures Procedures: Procedures Procedure Code Date INDIVID PSYCHOTHERAP NEC 94.39 06/08/08 OTHER GROUP THERAPY 94.44 06/08/08 Assessment/Plan - Problem List Patient Problems: All Active Problems Anemia (Acute) D64.9 Anxiety (Acute) F41.9 EXTREME AGITATION AND LASHING OUT AT STA (Acute) Hyponatremia (Acute) E87.1 Hypothyroid (Acute) E03.9 Pseudobulbar affect (Acute) F48.2 Seizure (Acute) R56.9 - Assessment Assessment: Current Active Problems Problem Status Onset EXTREME AGITATION AND LASHING OUT AT STA Acute psychosis ... admit to geropsyche hyponatremia ... resolved. now normal hypothyroidism ... will start levothyroxine 50mcg PO daily seizure disorder ... stable. on depakote pseudobulbar affect disorder ... stable with medication anemia ... on ferrous sulfate. anxiety disorder Wound to left hip ... will order wound consult, start Clindamycin 300mg PO QID. will continue current treatment. +MRSA nares ... will order Bactroban nasal. - Plan Plan: psychosis ... admit to geropsyche hyponatremia ... resolved. now normal hypothyroidism ... will start levothyroxine 50mcg PO daily seizure disorder ... stable. on depakote pseudobulbar affect disorder ... stable with medication anemia ... on ferrous sulfate. anxiety disorder Wound to left hip ... will order wound consult, start Clindamycin 300mg PO QID. surgical consult with Dr. Chino. +MRSA nares ... will order Bactroban nasal application. Nutritional Asmnt/Malnutr-PDOC - Dietary Evaluation Malnutrition Findings (Please click <Entered> for more info): Nutritional Asmnt/Malnutrition Start: 11/22/16 14: 44 Text: Status: Complete Freq: Document 11/23/16 18:42 [facility] (Rec: 11/23/16 18:51 [facility] [id number]) Nutritional Asmnt/Malnutrition Patient General Information Nutritional Screening Consult Diagnosis Psychosis Pertinent Medical Hx/Surgical Hx Pseudobulbar affect disorder, seizure, developmental disability, psychosis, anger, poor impulse control Subjective Information Nutrition Consult for left hip wound received and completed. Pt is a 56-year-old female from [facility] admitted with chief complaint of increased agitation and change in behavior. RD attempted nutrition assessment twice on 11/22 and 11/23. Pt is a poor historian. Current Diet Order/ Nutrition Support Mechanical soft chopped Patient / S.O Can't verbalize diet edu Pertinent Medications Vitamin C, Cleocin, Depakote, Colace, Pepcid, Iron, Folate, Zyperxa, Zinc Sulfate Pertinent Labs Reviewed Nutritional Hx/Data Height 1.68 m Height (Calculated Centimeters) 167.6 Current Weight (lbs) 72.575 kg Weight (Calculated Kilograms) 72.6 Weight (Calculated Grams) 89630.8 [place] Body Weight 130 % [place] Body Weight 123 Weight Status Approriate GI Symptoms GI Symptoms None Food Allergies No Usual diet at home Mechanical soft chopped Skin Integrity/Comment: Faisal 16. Acute on chronic left lateral hip wound. Current %PO Good (75-100%) Estimated Nutritional Goals BEE in Kcals: Using Current wt Calories/Kcals/Kg Based on current wt 72.7 kg with consideration of wound Kcals Calculated 6312-0751 kcals/day (30-35 kcals/kg) Protein: Using Current wt Protein g/kg: Based on current wt 72.7 kg with consideration of wound Protein Calculated 73-87 gm/day (1-1.2 gm/kg) Fluid: ml 2744-6704 ml/day (1 ml/klcal) Nutritional Problem 1. Problem Problem Increased protein needs related to Etiology altered skin integrity as evidenced by Signs/Symptoms: acute on chronic wound to left lateral hip, per Wound RN notes. Malnutrition Alert Protein-Calorie Malnutrition N/A Is there a minimum of two criteria No selected? Query Text:Check all the applicable criteria. A minimum of two criteria are recommended for diagnosis of either severe or non-severe malnutrition. Intervention/Recommendation Comments 1. Continue with current diet as it is adequate to meet estimated nutritional needs. 2. Continue vitamin C and zinc supplementation for wound healing. Expected Outcomes/Goals Expected Outcomes/Goals Have pt meet at least 75% of estimated nutritional needs, improved skin integrity.
[2016-12-10] MEDS: Multivitamin w/ Minerals Tab PO SCH (08:08)
[2016-12-10] MEDS: HALOPERIDOL PO SCH ×2 (08:08→17:11)
[2016-12-10] MEDS: Ferrous Sulfate 325 MG TAB PO SCH (08:08)
[2016-12-10] MEDS: Dextromethorphan/Quinidine 20mg/10mg Cap PO SCH ×2 (08:25→20:18)
[2016-12-10] MEDS: Venelex 60gm Tube TP SCH (10:50)
--- NOTE | 2016-12-10 14:12 | Progress Notes ---
DATE: 12/10/2016 SUBJECTIVE: The patient was seen and evaluated. The patient's chart reviewed. Overnight, nursing staff reporting that the patient has intermittent ____ that are non-triggered and finds herself easily yelling, screaming, disorganized and agitated. She is connected with [facility]. Today on [id number] evaluation, the patient is observed to be intermittently screaming and yelling and when approached, the patient becomes very suspicious and paranoid. MENTAL STATUS EXAMINATION: Suspicious, paranoid and observed to be responding to internal stimuli. ASSESSMENT AND PLAN: The patient is a 56-year-old female connected with [facility] still observed to be responding intermittently to voices and responding in a disorganized manner because of the voices. She is unable to formulate a safe plan outside the structured environment. We will continue with primary psychiatrist's treatment plan and goals, which include clonazepam, Haldol 40 mg b.i.d. as medications were recently increased on 08 of December, we will continue with the current medication regimen ____ with the Zyprexa 30 mg a day and Depakote 1000 mg plus 750, a total of 1750 to target the patient's labile, aggressive behavior. JOB# [id number]
[2016-12-11] MEDS: Levothyroxine 0.05 Mg Tab PO SCH (06:36)
--- NOTE | 2016-12-11 08:05 | General Progress Note ---
Subjective - Review of Systems Service Date: 12/11/16 Subjective: Awake,alert,afebrile.still psychotic Objective - Results Result Diagrams: 12/05/16 07:50 12/05/16 07:50 Recent Labs: Laboratory Last Values WBC 7.6 Th/cmm (4.8-10.8) 12/05/16 07:50 RBC 3.94 Mil/cmm (3.80-5.10) 12/05/16 07:50 Hgb 11.5 gm/dL (11.7-15.5) L 12/05/16 07:50 Hct 33.8 % (35.0-45.0) L 12/05/16 07:50 MCV 85.9 fl (81-100) 12/05/16 07:50 MCH 29.1 pg (27.0-31.0) 12/05/16 07:50 MCHC Differential 33.9 pg (28.0-36.0) 12/05/16 07:50 RDW 15.6 % (11.5-20.0) 12/05/16 07:50 Plt Count 179 Th/cmm (150-400) 12/05/16 07:50 MPV 9.6 fl 12/05/16 07:50 Neutrophils % 45.0 % (40.0-80.0) 12/05/16 07:50 Lymphocytes % 40.7 % (20.0-50.0) 12/05/16 07:50 Monocytes % 12.6 % (2.0-10.0) H 12/05/16 07:50 Eosinophils % 1.4 % (0.0-5.0) 12/05/16 07:50 Basophils % 0.3 % (0.0-2.0) 12/05/16 07:50 Sodium 136 mEq/L (136-145) 12/05/16 07:50 Potassium 4.3 mEq/L (3.5-5.1) 12/05/16 07:50 Chloride 101 mEq/L (98-107) 12/05/16 07:50 Carbon Dioxide 33.8 mEq/L (21.0-31.0) H 12/05/16 07:50 Anion Gap 5.5 (7.0-16.0) L 12/05/16 07:50 BUN 20 mg/dL (7-25) 12/05/16 07:50 Creatinine 0.6 mg/dL (0.6-1.2) 12/05/16 07:50 Est GFR ( Amer) > 60.0 ml/min (>90) 12/05/16 07:50 Est GFR (Non-Af Amer) > 60.0 ml/min 12/05/16 07:50 BUN/Creatinine Ratio 33.3 12/05/16 07:50 Glucose 87 mg/dL (70-105) 12/05/16 07:50 Calcium 9.7 mg/dL (8.6-10.3) 12/05/16 07:50 Free T4 0.97 ng/dL (0.82-1.77) 11/20/16 13:20 TSH 2.96 uIU/ml (0.34-5.60) 12/05/16 07:50 Valproic Acid 65.9 ug/mL (50.0-100.0) 11/20/16 13:59 - Physical Exam Vitals and I&O: Vital Signs Temp 97.8 F 12/11/16 06:50 Pulse 73 12/11/16 06:50 Resp 97 12/11/16 06:50 BP 127/85 12/11/16 06:50 Pulse Ox 97 12/11/16 06:50 Intake & Output 12/10/16 12/11/16 12/11/16 18:59 06:59 18:59 Intake Total 3400 240 Balance 3400 240 Weight (lbs) 72.575 kg Intake: Oral 3400 240 Other: # Voids 5 3 # Bowel Movements 0 0 Active Medications: Current Medications Acetaminophen (Tylenol) 650 mg PO Q4H PRN PRN Reason: TEMP >100 Stop: 01/19/17 16:04 Alprazolam (Xanax) 1 mg PO Q4HR PRN; Protocol PRN Reason: Anxiety Stop: 02/03/17 14:18 Ascorbic Acid (Vitamin C) 500 mg PO DAILY [facility] Stop: 01/20/17 08:59 Last Admin: 12/10/16 08:09 Dose: 500 mg Bisacodyl (Dulcolax 10 Mg Supp) 10 mg RC DAILY PRN PRN Reason: Constipation Stop: 01/19/17 16:04 Clonazepam (Klonopin) 1 mg PO BID [facility] Stop: 02/01/17 16:59 Last Admin: 12/10/16 17:11 Dose: 1 mg Clonazepam (Klonopin) 0.5 mg PO 1200 [facility]EVY PRN Reason: Protocol Stop: 02/07/17 11:59 Last Admin: 12/10/16 13:05 Dose: 0.5 mg Clotrimazole (Lotrimin 1% Cream) 1 appl TP BID [facility] Stop: 01/19/17 16:59 Last Admin: 12/10/16 17:22 Dose: Not Given Dextromethorphan/Quinidine (Nuedexta 20mg-10mg) 1 cap PO Q12HR [facility] Stop: 01/19/17 20:59 Last Admin: 12/10/16 20:18 Dose: 1 cap Diphenhydramine HCl (Benadryl) 25 mg PO Q4HR PRN PRN Reason: Agitation Stop: 01/25/17 05:43 Last Admin: 12/10/16 23:43 Dose: 25 mg Docusate Sodium (Colace) 100 mg PO BID [facility] Stop: 01/19/17 16:59 Last Admin: 12/10/16 17:11 Dose: 100 mg Famotidine (Pepcid) 20 mg PO DAILY [facility] Stop: 01/20/17 08:59 Last Admin: 12/10/16 08:08 Dose: 20 mg Ferrous Sulfate (Iron) 325 mg PO DAILY [facility] Stop: 01/20/17 08:59 Last Admin: 12/10/16 08:08 Dose: 325 mg Folic Acid (Folate) 1 mg PO DAILY [facility] Stop: 01/20/17 08:59 Last Admin: 12/10/16 08:08 Dose: 1 mg Haloperidol (Haldol) 5 mg PO Q4HR PRN PRN Reason: Agitation Stop: 02/01/17 10:31 Last Admin: 12/10/16 14:05 Dose: 5 mg Haloperidol 5 mg/ Haloperidol (2 mg) 7 mg PO BID [facility] Stop: 02/06/17 16:59 Last Admin: 12/10/16 17:11 Dose: 7 mg Levothyroxine Sodium (Synthroid) 0.05 mg PO QDAC [facility] Stop: 01/21/17 07:29 Last Admin: 12/11/16 06:36 Dose: 0.05 mg Lorazepam (Ativan) 1 mg PO Q6HR PRN; Protocol PRN Reason: Agitation Stop: 01/23/17 10:20 Last Admin: 12/10/16 09:34 Dose: 1 mg Magnesium Hydroxide (Milk Of Magnesia) 30 ml PO PRN PRN PRN Reason: Constipation Stop: 01/19/17 16:04 Nystatin/Triamcinolone Acetonide (Mycolog Ii Cream) 1 appl TP TID [facility] Stop: 01/19/17 20:59 Last Admin: 12/10/16 20:19 Dose: Not Given Olanzapine (Zyprexa) 15 mg PO BID [facility] PRN Reason: Protocol Stop: 01/25/17 16:59 Last Admin: 12/10/16 17:11 Dose: 15 mg Temazepam (Restoril) 15 mg PO HS PRN; Protocol PRN Reason: Insomnia Stop: 01/19/17 20:59 Last Admin: 12/09/16 21:10 Dose: 15 mg Valproate Sodium (Depakene) 750 mg PO DAILY [facility] PRN Reason: Protocol Stop: 01/29/17 08:59 Last Admin: 12/10/16 08:06 Dose: 750 mg Valproate Sodium (Depakene) 500 mg PO 1400,2100 [facility] PRN Reason: Protocol Stop: 01/28/17 13:59 Last Admin: 12/10/16 20:19 Dose: 500 mg Zinc Sulfate (Zinc Sulfate) 220 mg PO DAILY [facility] Stop: 01/20/17 08:59 Last Admin: 12/10/16 08:08 Dose: 220 mg General: Alert HEENT: Atraumatic, PERRLA, EOMI Neck: Supple Cardiovascular: Regular rate, Normal S1, Normal S2 Lungs: Clear to auscultation Abdomen: Bowel sounds Extremities: no Clubbing, no Cyanosis, no Edema Skin: Other (sore to the left hip) - Procedures Procedures: Procedures Procedure Code Date INDIVID PSYCHOTHERAP NEC 94.39 06/08/08 OTHER GROUP THERAPY 94.44 06/08/08 Assessment/Plan - Problem List Patient Problems: All Active Problems Anemia (Acute) D64.9 Anxiety (Acute) F41.9 EXTREME AGITATION AND LASHING OUT AT STA (Acute) Hyponatremia (Acute) E87.1 Hypothyroid (Acute) E03.9 Pseudobulbar affect (Acute) F48.2 Seizure (Acute) R56.9 - Assessment Assessment: Current Active Problems Problem Status Onset EXTREME AGITATION AND LASHING OUT AT STA Acute psychosis ... continue current treatment hyponatremia ... resolved. now normal hypothyroidism ... stable. TSH normal seizure disorder ... stable will continue depakote. pseudobulbar affect disorder ... stable with medication anemia ... stable hemoglobin will continue ferrous sulfate. anxiety disorder Wound to left hip ... will order wound consult, start Clindamycin 300mg PO QID. will continue current treatment. +MRSA nares ... will order Bactroban nasal. - Plan Plan: psychosis ... admit to geropsyche hyponatremia ... resolved. now normal hypothyroidism ... will start levothyroxine 50mcg PO daily seizure disorder ... stable. on depakote pseudobulbar affect disorder ... stable with medication anemia ... on ferrous sulfate. anxiety disorder Wound to left hip ... will order wound consult, start Clindamycin 300mg PO QID. surgical consult with Dr. Chino. +MRSA nares ... will order Bactroban nasal application. Nutritional Asmnt/Malnutr-PDOC - Dietary Evaluation Malnutrition Findings (Please click <Entered> for more info): Nutritional Asmnt/Malnutrition Start: 11/22/16 14: 44 Text: Status: Complete Freq: Document 11/23/16 18:42 [facility] (Rec: 11/23/16 18:51 [facility] [id number]) Nutritional Asmnt/Malnutrition Patient General Information Nutritional Screening Consult Diagnosis Psychosis Pertinent Medical Hx/Surgical Hx Pseudobulbar affect disorder, seizure, developmental disability, psychosis, anger, poor impulse control Subjective Information Nutrition Consult for left hip wound received and completed. Pt is a 56-year-old female from [facility] admitted with chief complaint of increased agitation and change in behavior. RD attempted nutrition assessment twice on 11/22 and 11/23. Pt is a poor historian. Current Diet Order/ Nutrition Support Mechanical soft chopped Patient / S.O Can't verbalize diet edu Pertinent Medications Vitamin C, Cleocin, Depakote, Colace, Pepcid, Iron, Folate, Zyperxa, Zinc Sulfate Pertinent Labs Reviewed Nutritional Hx/Data Height 1.68 m Height (Calculated Centimeters) 167.6 Current Weight (lbs) 72.575 kg Weight (Calculated Kilograms) 72.6 Weight (Calculated Grams) 53630.8 [place] Body Weight 130 % [place] Body Weight 123 Weight Status Approriate GI Symptoms GI Symptoms None Food Allergies No Usual diet at home Mechanical soft chopped Skin Integrity/Comment: Faisal 16. Acute on chronic left lateral hip wound. Current %PO Good (75-100%) Estimated Nutritional Goals BEE in Kcals: Using Current wt Calories/Kcals/Kg Based on current wt 72.7 kg with consideration of wound Kcals Calculated 7806-2725 kcals/day (30-35 kcals/kg) Protein: Using Current wt Protein g/kg: Based on current wt 72.7 kg with consideration of wound Protein Calculated 73-87 gm/day (1-1.2 gm/kg) Fluid: ml 2990-1354 ml/day (1 ml/klcal) Nutritional Problem 1. Problem Problem Increased protein needs related to Etiology altered skin integrity as evidenced by Signs/Symptoms: acute on chronic wound to left lateral hip, per Wound RN notes. Malnutrition Alert Protein-Calorie Malnutrition N/A Is there a minimum of two criteria No selected? Query Text:Check all the applicable criteria. A minimum of two criteria are recommended for diagnosis of either severe or non-severe malnutrition. Intervention/Recommendation Comments 1. Continue with current diet as it is adequate to meet estimated nutritional needs. 2. Continue vitamin C and zinc supplementation for wound healing. Expected Outcomes/Goals Expected Outcomes/Goals Have pt meet at least 75% of estimated nutritional needs, improved skin integrity.
[2016-12-11] MEDS: Dextromethorphan/Quinidine 20mg/10mg Cap PO SCH ×4 (08:20→23:29)
[2016-12-11] MEDS: HALOPERIDOL PO SCH ×2 (08:20→16:33)
[2016-12-11] MEDS: Ferrous Sulfate 325 MG TAB PO SCH (08:21)
[2016-12-11] MEDS: Multivitamin w/ Minerals Tab PO SCH (08:21)
[2016-12-11] MEDS ORDERED: chlorproMAZINE 25 mg/mL 2mL Amp IM STA (09:44)
[2016-12-11] MEDS ORDERED: chlorproMAZINE 25 mg/mL 2mL Amp ONE (09:44)
[2016-12-11] MEDS: Venelex 60gm Tube TP SCH (09:53)
--- NOTE | 2016-12-11 19:45 | Progress Notes ---
DATE: 12/11/2016 SUBJECTIVE: The patient was seen, chart reviewed, and discussed with staff. The patient remains symptomatic, yelling, screaming, nonsensical, very high-pitched voice. The patient required Thorazine x 1 today, still agitated, still difficult to redirect, gravely disabled. ASSESSMENT: The patient remains symptomatic, disorganized, ruminative, yelling, and screaming. PLAN: Discontinue Zyprexa and start Thorazine t.i.d. We are still working on placement. JOB# [id number]
[2016-12-12] MEDS: Levothyroxine 0.05 Mg Tab PO SCH (06:41)
[2016-12-12] MEDS: HALOPERIDOL PO SCH ×2 (08:45→18:18)
[2016-12-12] MEDS: Dextromethorphan/Quinidine 20mg/10mg Cap PO SCH ×2 (08:49→20:42)
[2016-12-12] MEDS: Multivitamin w/ Minerals Tab PO SCH (08:49)
[2016-12-12] MEDS: Ferrous Sulfate 325 MG TAB PO SCH (08:49)
--- NOTE | 2016-12-12 10:01 | General Progress Note ---
Subjective - Review of Systems Service Date: 12/12/16 Subjective: Awake,alert,afebrile.still psychotic Objective - Results Result Diagrams: 12/05/16 07:50 12/05/16 07:50 Recent Labs: Laboratory Last Values WBC 7.6 Th/cmm (4.8-10.8) 12/05/16 07:50 RBC 3.94 Mil/cmm (3.80-5.10) 12/05/16 07:50 Hgb 11.5 gm/dL (11.7-15.5) L 12/05/16 07:50 Hct 33.8 % (35.0-45.0) L 12/05/16 07:50 MCV 85.9 fl (81-100) 12/05/16 07:50 MCH 29.1 pg (27.0-31.0) 12/05/16 07:50 MCHC Differential 33.9 pg (28.0-36.0) 12/05/16 07:50 RDW 15.6 % (11.5-20.0) 12/05/16 07:50 Plt Count 179 Th/cmm (150-400) 12/05/16 07:50 MPV 9.6 fl 12/05/16 07:50 Neutrophils % 45.0 % (40.0-80.0) 12/05/16 07:50 Lymphocytes % 40.7 % (20.0-50.0) 12/05/16 07:50 Monocytes % 12.6 % (2.0-10.0) H 12/05/16 07:50 Eosinophils % 1.4 % (0.0-5.0) 12/05/16 07:50 Basophils % 0.3 % (0.0-2.0) 12/05/16 07:50 Sodium 136 mEq/L (136-145) 12/05/16 07:50 Potassium 4.3 mEq/L (3.5-5.1) 12/05/16 07:50 Chloride 101 mEq/L (98-107) 12/05/16 07:50 Carbon Dioxide 33.8 mEq/L (21.0-31.0) H 12/05/16 07:50 Anion Gap 5.5 (7.0-16.0) L 12/05/16 07:50 BUN 20 mg/dL (7-25) 12/05/16 07:50 Creatinine 0.6 mg/dL (0.6-1.2) 12/05/16 07:50 Est GFR ( Amer) > 60.0 ml/min (>90) 12/05/16 07:50 Est GFR (Non-Af Amer) > 60.0 ml/min 12/05/16 07:50 BUN/Creatinine Ratio 33.3 12/05/16 07:50 Glucose 87 mg/dL (70-105) 12/05/16 07:50 Calcium 9.7 mg/dL (8.6-10.3) 12/05/16 07:50 Free T4 0.97 ng/dL (0.82-1.77) 11/20/16 13:20 TSH 2.96 uIU/ml (0.34-5.60) 12/05/16 07:50 Valproic Acid 65.9 ug/mL (50.0-100.0) 11/20/16 13:59 - Physical Exam Vitals and I&O: Vital Signs Temp 97.6 F 12/12/16 06:54 Pulse 99 12/12/16 06:54 Resp 18 12/12/16 06:54 BP 109/52 12/12/16 06:54 Pulse Ox 98 12/12/16 06:54 Intake & Output 12/11/16 12/12/16 12/12/16 18:59 06:59 18:59 Intake Total 3600 240 Balance 3600 240 Weight (lbs) 72.575 kg Intake: Oral 3600 240 Other: # Voids 6 3 # Bowel Movements 1 0 Active Medications: Current Medications Acetaminophen (Tylenol) 650 mg PO Q4H PRN PRN Reason: TEMP >100 Stop: 01/19/17 16:04 Alprazolam (Xanax) 1 mg PO Q4HR PRN; Protocol PRN Reason: Anxiety Stop: 02/03/17 14:18 Ascorbic Acid (Vitamin C) 500 mg PO DAILY LEVY Stop: 01/20/17 08:59 Last Admin: 12/12/16 08:49 Dose: 500 mg Bisacodyl (Dulcolax 10 Mg Supp) 10 mg RC DAILY PRN PRN Reason: Constipation Stop: 01/19/17 16:04 Chlorpromazine (Thorazine) 50 mg PO TID LEVY Stop: 02/10/17 09:14 Clonazepam (Klonopin) 1 mg PO BID LEVY Stop: 02/01/17 16:59 Last Admin: 12/12/16 08:46 Dose: 1 mg Clonazepam (Klonopin) 0.5 mg PO 1200 LEVY PRN Reason: Protocol Stop: 02/07/17 11:59 Last Admin: 12/11/16 11:51 Dose: 0.5 mg Clotrimazole (Lotrimin 1% Cream) 1 appl TP BID LEVY Stop: 01/19/17 16:59 Last Admin: 12/11/16 17:00 Dose: Not Given Dextromethorphan/Quinidine (Nuedexta 20mg-10mg) 1 cap PO Q12HR LEVY Stop: 01/19/17 20:59 Last Admin: 12/12/16 08:49 Dose: 1 cap Diphenhydramine HCl (Benadryl) 25 mg PO Q4HR PRN PRN Reason: Agitation Stop: 01/25/17 05:43 Last Admin: 12/12/16 08:48 Dose: 25 mg Docusate Sodium (Colace) 100 mg PO BID LEVY Stop: 01/19/17 16:59 Last Admin: 12/12/16 08:49 Dose: 100 mg Famotidine (Pepcid) 20 mg PO DAILY LEVY Stop: 01/20/17 08:59 Last Admin: 12/12/16 08:49 Dose: 20 mg Ferrous Sulfate (Iron) 325 mg PO DAILY LEVY Stop: 01/20/17 08:59 Last Admin: 12/12/16 08:49 Dose: 325 mg Folic Acid (Folate) 1 mg PO DAILY LEVY Stop: 01/20/17 08:59 Last Admin: 12/12/16 08:49 Dose: 1 mg Haloperidol (Haldol) 5 mg PO Q4HR PRN PRN Reason: Agitation Stop: 02/01/17 10:31 Last Admin: 12/10/16 14:05 Dose: 5 mg Haloperidol 5 mg/ Haloperidol (2 mg) 7 mg PO BID LEVY Stop: 02/06/17 16:59 Last Admin: 12/12/16 08:45 Dose: 7 mg Levothyroxine Sodium (Synthroid) 0.05 mg PO QDAC LEVY Stop: 01/21/17 07:29 Last Admin: 12/12/16 06:41 Dose: 0.05 mg Lorazepam (Ativan) 1 mg PO Q6HR PRN; Protocol PRN Reason: Agitation Stop: 01/23/17 10:20 Last Admin: 12/10/16 09:34 Dose: 1 mg Magnesium Hydroxide (Milk Of Magnesia) 30 ml PO PRN PRN PRN Reason: Constipation Stop: 01/19/17 16:04 Nystatin/Triamcinolone Acetonide (Mycolog Ii Cream) 1 appl TP TID LEVY Stop: 01/19/17 20:59 Last Admin: 12/11/16 20:18 Dose: 1 appl Temazepam (Restoril) 15 mg PO HS PRN; Protocol PRN Reason: Insomnia Stop: 01/19/17 20:59 Last Admin: 12/09/16 21:10 Dose: 15 mg Valproate Sodium (Depakene) 750 mg PO DAILY LEVY PRN Reason: Protocol Stop: 01/29/17 08:59 Last Admin: 12/12/16 08:46 Dose: 750 mg Valproate Sodium (Depakene) 500 mg PO 1400,2100 LEVY PRN Reason: Protocol Stop: 01/28/17 13:59 Last Admin: 12/11/16 23:29 Dose: 500 mg Zinc Sulfate (Zinc Sulfate) 220 mg PO DAILY LEVY Stop: 01/20/17 08:59 Last Admin: 12/12/16 08:49 Dose: 220 mg General: Alert HEENT: Atraumatic, PERRLA, EOMI Neck: Supple Cardiovascular: Regular rate, Normal S1, Normal S2 Lungs: Clear to auscultation Abdomen: Bowel sounds Extremities: no Clubbing, no Cyanosis, no Edema Skin: Other (sore to the left hip) - Procedures Procedures: Procedures Procedure Code Date INDIVID PSYCHOTHERAP NEC 94.39 06/08/08 OTHER GROUP THERAPY 94.44 06/08/08 Assessment/Plan - Problem List Patient Problems: All Active Problems Anemia (Acute) D64.9 Anxiety (Acute) F41.9 EXTREME AGITATION AND LASHING OUT AT STA (Acute) Hyponatremia (Acute) E87.1 Hypothyroid (Acute) E03.9 Pseudobulbar affect (Acute) F48.2 Seizure (Acute) R56.9 - Assessment Assessment: Current Active Problems Problem Status Onset EXTREME AGITATION AND LASHING OUT AT STA Acute psychosis ... continue current treatment hyponatremia ... resolved. now normal hypothyroidism ... stable. TSH normal seizure disorder ... stable will continue depakote. pseudobulbar affect disorder ... stable with medication anemia ... stable hemoglobin will continue ferrous sulfate. anxiety disorder Wound to left hip ... will order wound consult, start Clindamycin 300mg PO QID. will continue current treatment. +MRSA nares ... will order Bactroban nasal. - Plan Plan: psychosis ... admit to geropsyche hyponatremia ... resolved. now normal hypothyroidism ... will start levothyroxine 50mcg PO daily seizure disorder ... stable. on depakote pseudobulbar affect disorder ... stable with medication anemia ... on ferrous sulfate. anxiety disorder Wound to left hip ... will order wound consult, start Clindamycin 300mg PO QID. surgical consult with Dr. Chino. +MRSA nares ... will order Bactroban nasal application. Nutritional Asmnt/Malnutr-PDOC - Dietary Evaluation Malnutrition Findings (Please click <Entered> for more info): Nutritional Asmnt/Malnutrition Start: 11/22/16 14: 44 Text: Status: Complete Freq: Document 11/23/16 18:42 [facility] (Rec: 11/23/16 18:51 [facility] [id number]) Nutritional Asmnt/Malnutrition Patient General Information Nutritional Screening Consult Diagnosis Psychosis Pertinent Medical Hx/Surgical Hx Pseudobulbar affect disorder, seizure, developmental disability, psychosis, anger, poor impulse control Subjective Information Nutrition Consult for left hip wound received and completed. Pt is a 56-year-old female from [facility] admitted with chief complaint of increased agitation and change in behavior. RD attempted nutrition assessment twice on 11/22 and 11/23. Pt is a poor historian. Current Diet Order/ Nutrition Support Mechanical soft chopped Patient / S.O Can't verbalize diet edu Pertinent Medications Vitamin C, Cleocin, Depakote, Colace, Pepcid, Iron, Folate, Zyperxa, Zinc Sulfate Pertinent Labs Reviewed Nutritional Hx/Data Height 1.68 m Height (Calculated Centimeters) 167.6 Current Weight (lbs) 72.575 kg Weight (Calculated Kilograms) 72.6 Weight (Calculated Grams) 29060.8 Conner Body Weight 130 % Conner Body Weight 123 Weight Status Approriate GI Symptoms GI Symptoms None Food Allergies No Usual diet at home Mechanical soft chopped Skin Integrity/Comment: Faisal 16. Acute on chronic left lateral hip wound. Current %PO Good (75-100%) Estimated Nutritional Goals BEE in Kcals: Using Current wt Calories/Kcals/Kg Based on current wt 72.7 kg with consideration of wound Kcals Calculated 9106-9805 kcals/day (30-35 kcals/kg) Protein: Using Current wt Protein g/kg: Based on current wt 72.7 kg with consideration of wound Protein Calculated 73-87 gm/day (1-1.2 gm/kg) Fluid: ml 5901-8598 ml/day (1 ml/klcal) Nutritional Problem 1. Problem Problem Increased protein needs related to Etiology altered skin integrity as evidenced by Signs/Symptoms: acute on chronic wound to left lateral hip, per Wound RN notes. Malnutrition Alert Protein-Calorie Malnutrition N/A Is there a minimum of two criteria No selected? Query Text:Check all the applicable criteria. A minimum of two criteria are recommended for diagnosis of either severe or non-severe malnutrition. Intervention/Recommendation Comments 1. Continue with current diet as it is adequate to meet estimated nutritional needs. 2. Continue vitamin C and zinc supplementation for wound healing. Expected Outcomes/Goals Expected Outcomes/Goals Have pt meet at least 75% of estimated nutritional needs, improved skin integrity.
[2016-12-12] MEDS: Venelex 60gm Tube TP SCH (18:17)
--- NOTE | 2016-12-13 04:41 | Progress Notes ---
DATE: 12/12/2016 SUBJECTIVE: The patient is seen, chart reviewed, and discussed with staff. The patient is still yelling, screaming, still agitated at times, __unstable__, asking for coffee, nonsensical in responses, less violent, less aggressive, still requiring emergency medications at times. Currently, on Thorazine as a new regimen _, changed from ___ Zyprexa due to lack of efficacy. ASSESSMENT: The patient remains symptomatic, yelling, and screaming, still ____ impulsive, and unpredictable. PLAN: Increase Thorazine today. The patient is not safe for a lower level of care. JOB# [id number] BAKARI
[2016-12-13] MEDS: Levothyroxine 0.05 Mg Tab PO SCH (06:39)
[2016-12-13] MEDS: Multivitamin w/ Minerals Tab PO SCH (08:15)
[2016-12-13] MEDS: Dextromethorphan/Quinidine 20mg/10mg Cap PO SCH (08:15)
[2016-12-13] MEDS: Ferrous Sulfate 325 MG TAB PO SCH (08:15)
[2016-12-13] MEDS: HALOPERIDOL PO SCH (08:21)
--- NOTE | 2016-12-13 08:32 | General Progress Note ---
Subjective - Review of Systems Service Date: 12/13/16 Subjective: Awake,alert,afebrile.still psychotic Objective - Results Result Diagrams: 12/05/16 07:50 12/05/16 07:50 Recent Labs: Laboratory Last Values WBC 7.6 Th/cmm (4.8-10.8) 12/05/16 07:50 RBC 3.94 Mil/cmm (3.80-5.10) 12/05/16 07:50 Hgb 11.5 gm/dL (11.7-15.5) L 12/05/16 07:50 Hct 33.8 % (35.0-45.0) L 12/05/16 07:50 MCV 85.9 fl (81-100) 12/05/16 07:50 MCH 29.1 pg (27.0-31.0) 12/05/16 07:50 MCHC Differential 33.9 pg (28.0-36.0) 12/05/16 07:50 RDW 15.6 % (11.5-20.0) 12/05/16 07:50 Plt Count 179 Th/cmm (150-400) 12/05/16 07:50 MPV 9.6 fl 12/05/16 07:50 Neutrophils % 45.0 % (40.0-80.0) 12/05/16 07:50 Lymphocytes % 40.7 % (20.0-50.0) 12/05/16 07:50 Monocytes % 12.6 % (2.0-10.0) H 12/05/16 07:50 Eosinophils % 1.4 % (0.0-5.0) 12/05/16 07:50 Basophils % 0.3 % (0.0-2.0) 12/05/16 07:50 Sodium 136 mEq/L (136-145) 12/05/16 07:50 Potassium 4.3 mEq/L (3.5-5.1) 12/05/16 07:50 Chloride 101 mEq/L (98-107) 12/05/16 07:50 Carbon Dioxide 33.8 mEq/L (21.0-31.0) H 12/05/16 07:50 Anion Gap 5.5 (7.0-16.0) L 12/05/16 07:50 BUN 20 mg/dL (7-25) 12/05/16 07:50 Creatinine 0.6 mg/dL (0.6-1.2) 12/05/16 07:50 Est GFR ( Amer) > 60.0 ml/min (>90) 12/05/16 07:50 Est GFR (Non-Af Amer) > 60.0 ml/min 12/05/16 07:50 BUN/Creatinine Ratio 33.3 12/05/16 07:50 Glucose 87 mg/dL (70-105) 12/05/16 07:50 Calcium 9.7 mg/dL (8.6-10.3) 12/05/16 07:50 Free T4 0.97 ng/dL (0.82-1.77) 11/20/16 13:20 TSH 2.96 uIU/ml (0.34-5.60) 12/05/16 07:50 Valproic Acid 65.9 ug/mL (50.0-100.0) 11/20/16 13:59 - Physical Exam Vitals and I&O: Vital Signs Temp 97 F 12/13/16 06:13 Pulse 89 12/13/16 06:13 Resp 19 12/13/16 06:13 BP 118/83 12/13/16 06:13 Pulse Ox 97 12/13/16 06:13 Intake & Output 12/12/16 12/13/16 12/13/16 18:59 06:59 18:59 Intake Total 1200 120 Balance 1200 120 Weight (lbs) 82.327 kg Intake: Oral 1200 120 Other: # Voids 3 # Bowel Movements 1 Active Medications: Current Medications Acetaminophen (Tylenol) 650 mg PO Q4H PRN PRN Reason: TEMP >100 Stop: 01/19/17 16:04 Alprazolam (Xanax) 1 mg PO Q4HR PRN; Protocol PRN Reason: Anxiety Stop: 02/03/17 14:18 Ascorbic Acid (Vitamin C) 500 mg PO DAILY LEVY Stop: 01/20/17 08:59 Last Admin: 12/13/16 08:15 Dose: 500 mg Bisacodyl (Dulcolax 10 Mg Supp) 10 mg RC DAILY PRN PRN Reason: Constipation Stop: 01/19/17 16:04 Chlorpromazine (Thorazine) 50 mg PO TID LEVY Stop: 02/10/17 09:14 Last Admin: 12/12/16 20:43 Dose: 50 mg Clonazepam (Klonopin) 1 mg PO BID LEVY Stop: 02/01/17 16:59 Last Admin: 12/12/16 18:18 Dose: 1 mg Clonazepam (Klonopin) 0.5 mg PO 1200 LEVY PRN Reason: Protocol Stop: 02/07/17 11:59 Last Admin: 12/12/16 13:21 Dose: 0.5 mg Clotrimazole (Lotrimin 1% Cream) 1 appl TP BID LEVY Stop: 01/19/17 16:59 Last Admin: 12/11/16 17:00 Dose: Not Given Dextromethorphan/Quinidine (Nuedexta 20mg-10mg) 1 cap PO Q12HR LEVY Stop: 01/19/17 20:59 Last Admin: 12/13/16 08:15 Dose: 1 cap Diphenhydramine HCl (Benadryl) 25 mg PO Q4HR PRN PRN Reason: Agitation Stop: 01/25/17 05:43 Last Admin: 12/12/16 18:18 Dose: 25 mg Docusate Sodium (Colace) 100 mg PO BID LEVY Stop: 01/19/17 16:59 Last Admin: 12/13/16 08:13 Dose: 100 mg Famotidine (Pepcid) 20 mg PO DAILY LEVY Stop: 01/20/17 08:59 Last Admin: 12/13/16 08:14 Dose: 20 mg Ferrous Sulfate (Iron) 325 mg PO DAILY LEVY Stop: 01/20/17 08:59 Last Admin: 12/13/16 08:15 Dose: 325 mg Folic Acid (Folate) 1 mg PO DAILY LEVY Stop: 01/20/17 08:59 Last Admin: 12/13/16 08:15 Dose: 1 mg Haloperidol (Haldol) 5 mg PO Q4HR PRN PRN Reason: Agitation Stop: 02/01/17 10:31 Last Admin: 12/10/16 14:05 Dose: 5 mg Haloperidol 5 mg/ Haloperidol (2 mg) 7 mg PO BID LEVY Stop: 02/06/17 16:59 Last Admin: 12/13/16 08:21 Dose: 7 mg Levothyroxine Sodium (Synthroid) 0.05 mg PO QDAC LEVY Stop: 01/21/17 07:29 Last Admin: 12/13/16 06:39 Dose: 0.05 mg Lorazepam (Ativan) 1 mg PO Q6HR PRN; Protocol PRN Reason: Agitation Stop: 01/23/17 10:20 Last Admin: 12/10/16 09:34 Dose: 1 mg Magnesium Hydroxide (Milk Of Magnesia) 30 ml PO PRN PRN PRN Reason: Constipation Stop: 01/19/17 16:04 Nystatin/Triamcinolone Acetonide (Mycolog Ii Cream) 1 appl TP TID LEVY Stop: 01/19/17 20:59 Last Admin: 12/12/16 20:44 Dose: 1 appl Temazepam (Restoril) 15 mg PO HS PRN; Protocol PRN Reason: Insomnia Stop: 01/19/17 20:59 Last Admin: 12/09/16 21:10 Dose: 15 mg Valproate Sodium (Depakene) 750 mg PO DAILY LEVY PRN Reason: Protocol Stop: 01/29/17 08:59 Last Admin: 12/13/16 08:23 Dose: 750 mg Valproate Sodium (Depakene) 500 mg PO 1400,2100 LEVY PRN Reason: Protocol Stop: 01/28/17 13:59 Last Admin: 12/12/16 20:44 Dose: 500 mg Zinc Sulfate (Zinc Sulfate) 220 mg PO DAILY LEVY Stop: 01/20/17 08:59 Last Admin: 12/13/16 08:16 Dose: 220 mg General: Alert HEENT: Atraumatic, PERRLA, EOMI Neck: Supple Cardiovascular: Regular rate, Normal S1, Normal S2 Lungs: Clear to auscultation Abdomen: Bowel sounds Extremities: no Clubbing, no Cyanosis, no Edema Skin: Other (sore to the left hip) - Procedures Procedures: Procedures Procedure Code Date INDIVID PSYCHOTHERAP NEC 94.39 06/08/08 OTHER GROUP THERAPY 94.44 09 Assessment/Plan - Problem List Patient Problems: All Active Problems Anemia (Acute) D64.9 Anxiety (Acute) F41.9 EXTREME AGITATION AND LASHING OUT AT STA (Acute) Hyponatremia (Acute) E87.1 Hypothyroid (Acute) E03.9 Pseudobulbar affect (Acute) F48.2 Seizure (Acute) R56.9 - Assessment Assessment: Current Active Problems Problem Status Onset EXTREME AGITATION AND LASHING OUT AT STA Acute psychosis ... continue current treatment hyponatremia ... resolved. now normal hypothyroidism ... stable. TSH normal seizure disorder ... stable will continue depakote. pseudobulbar affect disorder ... stable with medication anemia ... stable hemoglobin will continue ferrous sulfate. anxiety disorder Wound to left hip ... will order wound consult, start Clindamycin 300mg PO QID. will continue current treatment. +MRSA nares ... will order Bactroban nasal. - Plan Plan: psychosis ... admit to geropsyche hyponatremia ... resolved. now normal hypothyroidism ... will start levothyroxine 50mcg PO daily seizure disorder ... stable. on depakote pseudobulbar affect disorder ... stable with medication anemia ... on ferrous sulfate. anxiety disorder Wound to left hip ... will order wound consult, start Clindamycin 300mg PO QID. surgical consult with Dr. Chino. +MRSA nares ... will order Bactroban nasal application. Nutritional Asmnt/Malnutr-PDOC - Dietary Evaluation Malnutrition Findings (Please click <Entered> for more info): Nutritional Asmnt/Malnutrition Start: 11/22/16 14: 44 Text: Status: Complete Freq: Document 11/23/16 18:42 [facility] (Rec: 11/23/16 18:51 [facility] [id number]) Nutritional Asmnt/Malnutrition Patient General Information Nutritional Screening Consult Diagnosis Psychosis Pertinent Medical Hx/Surgical Hx Pseudobulbar affect disorder, seizure, developmental disability, psychosis, anger, poor impulse control Subjective Information Nutrition Consult for left hip wound received and completed. Pt is a 56-year-old female from [facility] admitted with chief complaint of increased agitation and change in behavior. RD attempted nutrition assessment twice on 11/22 and 11/23. Pt is a poor historian. Current Diet Order/ Nutrition Support Mechanical soft chopped Patient / S.O Can't verbalize diet edu Pertinent Medications Vitamin C, Cleocin, Depakote, Colace, Pepcid, Iron, Folate, Zyperxa, Zinc Sulfate Pertinent Labs Reviewed Nutritional Hx/Data Height 1.68 m Height (Calculated Centimeters) 167.6 Current Weight (lbs) 72.575 kg Weight (Calculated Kilograms) 72.6 Weight (Calculated Grams) 51148.8 Howells Body Weight 130 % Howells Body Weight 123 Weight Status Approriate GI Symptoms GI Symptoms None Food Allergies No Usual diet at home Mechanical soft chopped Skin Integrity/Comment: Faisal 16. Acute on chronic left lateral hip wound. Current %PO Good (75-100%) Estimated Nutritional Goals BEE in Kcals: Using Current wt Calories/Kcals/Kg Based on current wt 72.7 kg with consideration of wound Kcals Calculated 9328-2795 kcals/day (30-35 kcals/kg) Protein: Using Current wt Protein g/kg: Based on current wt 72.7 kg with consideration of wound Protein Calculated 73-87 gm/day (1-1.2 gm/kg) Fluid: ml 6757-5340 ml/day (1 ml/klcal) Nutritional Problem 1. Problem Problem Increased protein needs related to Etiology altered skin integrity as evidenced by Signs/Symptoms: acute on chronic wound to left lateral hip, per Wound RN notes. Malnutrition Alert Protein-Calorie Malnutrition N/A Is there a minimum of two criteria No selected? Query Text:Check all the applicable criteria. A minimum of two criteria are recommended for diagnosis of either severe or non-severe malnutrition. Intervention/Recommendation Comments 1. Continue with current diet as it is adequate to meet estimated nutritional needs. 2. Continue vitamin C and zinc supplementation for wound healing. Expected Outcomes/Goals Expected Outcomes/Goals Have pt meet at least 75% of estimated nutritional needs, improved skin integrity.
[2016-12-13] MEDS: Venelex 60gm Tube TP SCH (10:00)
--- NOTE | 2016-12-13 14:54 | Discharge Summary ---
DATE OF DISCHARGE: 12/13/2016 JUSTIFICATION FOR HOSPITALIZATION: Throwing things at staff, cursing, striking out, agitation. CHIEF COMPLAINT: "I want to leave." HISTORY OF PRESENT ILLNESS: A 56-year-old female with history of developmental disability, psychosis, anger, lashing out at staff, cursing, striking out and screaming at the top of her lungs, not redirectable. PAST PSYCHIATRIC HISTORY: Psychosis, DD, anger and agitation. SOCIAL HISTORY: Unclear. MENTAL STATUS EXAMINATION: Please see full psych eval for details. PROVISIONAL DIAGNOSIS: Please see full psych eval for details. HOSPITAL COURSE: After initial assessment, the patient was started on medications, Zyprexa then Haldol. Medications were titrated ____ efficacy. I took her off of Zyprexa, put her on Thorazine. She responded well, mood improved with less yelling episodes. Staff noting improvement. Sleeping fairly well, eating fairly well, more redirectable, no agitation, no violent behaviors. By 12/13/2016, placement was confirmed. She no longer met any medical necessity for hospitalization and she was discharged. CONDITION UPON DISCHARGE: Improved. Fair attention to ADLs and allowing ADLs. Speech is loud, certainly calmer, psychomotorically calmer. Mood "okay," "I want to leave." Affect flat. Again thought processes were disoriented, but redirectable, no SI, no HI, no psychotic symptoms. Insight and judgment better. Impulse control better. PROVISIONAL DIAGNOSIS: Developmental disability. DISCHARGE DIAGNOSES: Psychosis, unspecified; mood, unspecified; anxiety, unspecified. MEDICAL: Please see full H and P. PROGNOSIS: The patient follows up with outpatient hospital services and takes her medications as directed. Prognosis will improve, otherwise guarded. JOB# [id number]
== END 2016-12-13 15:20 | DRG 885 ==
LOC: ER 12:56 → GERO 15:34
PROVIDERS: ADMIT Psychiatry & Neurology Psychiatry; ATTEND Psychiatry & Neurology Psychiatry
DX: F29 Unspecified psychosis not due to a substance or known physiological condition (principal); F03.90 Unspecified dementia, unspecified severity, without behavioral disturbance, psychotic disturbance, mood disturbance, and anxiety; E87.1 Hypo-osmolality and hyponatremia; F39 Unspecified mood [affective] disorder; G40.909 Epilepsy, unspecified, not intractable, without status epilepticus; B35.4 Tinea corporis; F41.9 Anxiety disorder, unspecified; E03.9 Hypothyroidism, unspecified; F48.2 Pseudobulbar affect; D64.9 Anemia, unspecified; Z88.0 Allergy status to penicillin; Z88.8 Allergy status to other drugs, medicaments and biological substances; Z79.899 Other long term (current) drug therapy
CPT/HCPCS: 36415-UA; 71010-TC; 80048-TC; 80053-TC; 80164-TC; 84439-90; 84443-TC; 84484-TC; 85025-TC; 90899; A4216; G0410; J1200; J1630; J2060; J3230; Q0161; Z7610

== ENCOUNTER 2017-03-26 20:42 | Inpatient (IN) | payer MEDICARE, MEDICAID ==
--- NOTE | 2017-03-26 21:21 | ED Physician Chart ---
ED Chief Complaint/HPI - Patient Information Date Seen:: 03/26/17 Time Seen:: 21:21 Chief Complaint:: Agitation and aggressiveness History of Present Illness:: 56 yo female was brought from SNF to ER for evaluation of increased agitation and aggressiveness for 1 week. The patient was screaming and yelling to nursing staff. The patient is oriented to self only. Allergies:: Allergies Allergy/AdvReac Type Severity Reaction Status Date / Time Penicillins Allergy Verified 11/19/16 19:31 pregabalin Allergy Verified 11/19/16 19:31 Vitals:: Vital Signs - 8 hr 03/26/17 21:00 Temp 97.8 F HR 75 RR 18 BP 124/60 O2 Sat % 97 ED Review of Systems - Review of Systems General/Constitutional: No fever, No chills Skin: No skin lesions Head: No headache Eyes: No loss of vision ENT: No earache Neck: No neck pain Cardio Vascular: No chest pain Pulmonary: No SOB GI: No nausea, No vomiting Musculoskeletal: No bone or joint pain Psychiatric: Prior psych history ED Past Medical History - Past Medical History Past Medical History: PUD/GERD, Other (Dysphagia, anemia, hypothyroidism) Social History: Non Smoker, No Alcohol, No Drug Use Psychiatricy History: Other (Psychosis) Family Medical History - Family Member Mother History Unknown: Yes ED Physical Exam - Physical Examination General/Constitutional: Awake, Alert Other Gen/Cons comments:: yelling, oriented to self only Head: Atraumatic Eyes: PERRL, EOMI Skin: No ecchymosis ENMT: Nasal exam nl Neck: No nuchal rigidity Respiratory: Clear to Auscultation, No Wheeze/Rhonchi/Rales Cardio Vascular: RRR, No murmur, gallop, rubs, NL S1 S2 GI: No tenderness/rebounding/guarding Extremities: normal strength in all extremities Neuro/Psych: No focal deficits ED Assessment - Assessment General Assessment: Anemia Critical Care Time: 30 min Excludes all billable procedures: Yes This condition life threatening/high prob of deterioration: No Assessment/Comments:: CBC, CMP, UA Clear for psych admission ED Septic Shock - . Is Septic Shock (SBP<90, OR Lactate>4 mmol\L) present?: No - <6hrs of presentation: Vital Signs: Vital Signs - 8 hr 12/19/17 21:00 Temp 97.8 F HR 75 RR 18 BP 124/60 O2 Sat % 97 ED Reassessment (Disposition) - Reassessment Reassessment Condition:: Unchanged - Patient Disposition Discharge/Transfer:: Acute Care w/in this hosp
[2017-03-26 22:01] LABS: % BASOPHILS 0.3 % (0.0-2.0); % LYMPHOCYTES 43.9 % (20.0-50.0); % MONOCYTES 11.5 % (2.0-10.0); % NEUTROPHILS 42.3 % (40.0-80.0); EOSINOPHILE ABSOLUTE 0.2 Th/cmm (0.1-0.4); HEMATOCRIT 33.3 % (41.0-60); HEMOGLOBIN 11.3 gm/dL (12-16); LYMPHOCYTE ABSOLUTE 3.6 Th/cmm (1.5-3.0); MEAN CELL VOLUME 83.6 fl (81-100); MEAN CORPUSCULAR HEMOGLOBIN 28.5 pg (27.0-31.0); MEAN CORPUSCULAR HGB CONC 34.1 pg (28.0-36.0); MEAN PLATELET VOLUME 8.3 fl; MONOCYTE ABSOLUTE 0.9 Th/cmm (0.3-1.0); NEUTROPHILE ABSOLUTE 3.5 Th/cmm (1.8-8.0); PLATELET COUNT 214 Th/cmm (150-400); RED BLOOD COUNT 3.98 Mil/cmm (3.80-5.10); RED CELL DISTRIBUTION WIDTH 16.8 % (11.5-20.0); WHITE BLOOD COUNT 8.2 Th/cmm (4.8-10.8)
[2017-03-26 22:19] LABS: ALB/GLOB RATIO 1.3 (1.0-1.8); ALBUMIN 3.4 gm/dL (3.7-5.3); ALKALINE PHOSPHATASE 87 U/L (34-104); ANION GAP 7.6 (7.0-16.0); BILIRUBIN,TOTAL 0.2 mg/dL (0.3-1.0); BUN - UREA NITROGEN 18 mg/dL (7-25); CALCIUM SERUM 9.4 mg/dL (8.6-10.3); CARBON DIOXIDE 32.5 mEq/L (21.0-31.0); CHLORIDE 96 mEq/L (98-107); CREATININE - SERUM 0.8 mg/dL (0.6-1.2); GFR AFRICAN-AMERICAN > 60.0 ml/min (>90); GFR NON AFRICAN-AMERICAN > 60.0 ml/min; GLUCOSE 96 mg/dL (70-105); POTASSIUM SERUM 4.1 mEq/L (3.5-5.1); SGOT 9 U/L (13-39); SGPT/ALT 6 U/L (7-52); SODIUM SERUM 132 mEq/L (136-145)
[2017-03-26 22:37] LABS: URINE MICROSCOPIC INDICATED? YES; URINE SOURCE RANDOM
[2017-03-26 22:48] LABS: URINE BILIRUBIN NEGATIVE (NEGATIVE); URINE BLOOD NEGATIVE (NEGATIVE); URINE GLUCOSE (UA) NEGATIVE (NEGATIVE); URINE KETONE NEGATIVE (NEGATIVE); URINE LEUKOCYTE ESTERASE NEGATIVE (NEGATIVE); URINE NITRATE NEGATIVE (NEGATIVE); URINE PH 5.5 (4.6 - 8.0); URINE PROTEIN NEGATIVE (NEGATIVE); URINE UROBILINOGEN 0.2 E.U./dL (0.2 - 1.0)
[2017-03-26 22:54] LABS: URINE CLARITY CLEAR (CLEAR); URINE COLOR YELLOW
[2017-03-26 22:59] LABS: URINE BACTERIA FEW /hpf (NONE SEEN); URINE EPITHELIAL CELLS FEW /lpf (FEW); URINE RBC 0-2 /hpf (0-5); URINE WBC 0-2 /hpf (0-5)
[2017-03-26 23:19] VITALS: BP 128/72
[2017-03-26] MEDS ORDERED: Magnesium Hydroxide (MOM) 30 mL UDC PO PRN (23:31)
[2017-03-27] MEDS: Levothyroxine 0.05 Mg Tab PO SCH (06:50)
[2017-03-27] MEDS: Multivitamin w/ Minerals Tab PO SCH (08:46)
[2017-03-27] MEDS: Acetaminophen 500 MG TAB PO SCH (08:46)
[2017-03-27] MEDS: Ferrous Sulfate 325 MG TAB PO SCH (08:47)
[2017-03-27] MEDS ORDERED: Haloperidol Lactate 5 mg/mL 1mL Vial ONE (14:51)
[2017-03-27] MEDS ORDERED: Haloperidol Lactate 5 mg/mL 1mL Vial IM PRN (15:10)
[2017-03-27] MEDS ORDERED: Haloperidol Lactate 5 mg/mL 1mL Vial IM ONE (15:30)
--- NOTE | 2017-03-27 20:17 | History & Physical ---
ADMIT DATE: 03/27/2017 HISTORY OF PRESENT ILLNESS: The patient is a 56-year-old female with long history of dementia and hypothyroidism, admitted to [facility] under Dr. Gmoez's service for treatment. The patient denies any chest pain, shortness of breath, nausea, vomiting. PAST MEDICAL HISTORY: Significant for hypothyroidism and dementia. PAST SURGICAL HISTORY: No recent surgery. ALLERGIES: None. MEDICATIONS: Follow admission medical illnesses of medication. SOCIAL HISTORY: No smoking, no alcohol, no drug. FAMILY HISTORY: Noncontributory. REVIEW OF SYSTEMS: IMMUNOSYSTEM: No history of chronic renal disorder. CARDIOVASCULAR SYSTEM: No coronary artery disease. ENDOCRINE SYSTEM: History of hypothyroidism. GASTROINTESTINAL SYSTEM: No upper or lower gastrointestinal bleed. NEUROLOGICAL: She has history of psychosis and dementia. SKELETOMUSCULOSKELETAL SYSTEM: She has history of degenerative joint disease. PHYSICAL EXAMINATION: GENERAL: She is awake, not coherent. VITAL SIGNS: Temperature 97.5, heart rate is 96 and blood pressure 114/77. HEENT: Normocephalic. Pupils reacting to light. Sclerae are clear. NECK: Supple. Negative for lymphadenopathy, JVD or bruit. CHEST: Entry of air bilaterally normal. No rhonchi or wheezing. HEART: S1 and S2 normal. No gallop. ABDOMEN: Soft and bowel sounds positive. EXTREMITIES: No edema. NEUROLOGIC: She is awake, alert, not fully oriented. No focal motor or sensory deficit. Cranial nerves 2-12 are intact. LABORATORY DATA: White blood cell 8.2, hemoglobin 11.3, hematocrit 33.3 and platelet is 214. Sodium 132, potassium 4.1, BUN is 18 and creatinine 0.8. ASSESSMENT: 1. Anemia. 2. Hypothyroidism. 3. Degenerative joint disease. 4. Dementia. PLAN: The patient is in the hospital under Dr. Gomez's service. Medical problems addressed during this hospitalization are psychosis and dementia. Medical problems addressed at discharge hypothyroidism. The patient is medically stable for activity. Thank you, Dr. Gomez, for asking me to see your patient. JOB# [id number]
--- NOTE | 2017-03-28 00:52 | Psychosocial Evaluation ---
DATE OF SERVICE: CHIEF COMPLAINT: Agitation and irritability. HISTORY OF PRESENT ILLNESS: The patient is a 56-year-old female who was admitted to the hospital because of increased irritability and agitation and [facility] at [facility] and she has been having difficulty following staff directions there. She also has been disruptive and intrusive to others. Chart reviewed and the patient interviewed. Also discussed the patient's condition with the staff and reviewed records and labs. The patient has been yelling and screaming in the hospital and has not been able to follow any of staff directions. She also has been restless. The patient also has been going around on wheelchair and yelling and screaming and demanding and she also was trying to hit staff when they tried to redirect her. The patient had to be given emergency dose of Thorazine to calm her down. The patient was not able to answer any of my questions because she kept yelling and screaming. PAST PSYCHIATRIC HISTORY: The patient has history of schizoaffective disorder and said that she has history of multiple psychiatric hospitalizations. PAST MEDICAL HISTORY: The patient seems to have arthritis. SOCIAL HISTORY: The patient lives in a [facility]. No known alcohol or drug use. ALLERGIES: No known allergies. MENTAL STATUS EXAMINATION: The patient appears slightly older than her stated age, on wheelchair. Yelling and screaming constantly with loud tone of voice. The patient does not answer question regarding hallucinations or delusions, but actively hallucinating. Disorganized thought processes. The patient did not answer question regarding suicide or homicide. The patient is alert, but unable to assess orientation or memory or concentration or intelligence at this time because of her irritability and uncooperative behavior. ASSESSMENT AND PRIMARY DIAGNOSES: Schizoaffective disorder, bipolar type, with severe, with psychotic features. TREATMENT PLAN: We will continue to monitor behavior and condition closely. Also, we will continue Haldol and we will adjust the dose. Also, we will continue to work on behavior modification and her irritability. ESTIMATED LENGTH OF STAY: 5-7 days. THE PATIENT'S STRENGTHS AND WEAKNESSES: The patient's strength is not clear at this time. Weaknesses is her poor impulse control and irritability. AFTER DISCHARGE PLAN: Outpatient treatment and followup will continue in the nursing facility. CRITERIA FOR DISCHARGE: Better impulse control and stabilize psychotropic medications. JOB# [id number]
[2017-03-28] MEDS: Levothyroxine 0.05 Mg Tab PO SCH (06:43)
[2017-03-28] MEDS: Ferrous Sulfate 325 MG TAB PO SCH (12:50)
[2017-03-28] MEDS: Acetaminophen 500 MG TAB PO SCH (12:58)
[2017-03-28] MEDS: Multivitamin w/ Minerals Tab PO SCH (12:58)
--- NOTE | 2017-03-28 19:29 | Internal Medicine Prog Note ---
Internal Medicine Subjective - Subjective Service Date: 03/28/17 Patient seen and examined:: with staff (she denies pain or sob.) Internal Medicine Objective - Results Result Diagrams: 03/26/17 21:55 03/26/17 21:55 Recent Labs: Laboratory Last Values WBC 8.2 Th/cmm (4.8-10.8) 03/26/17 21:55 RBC 3.98 Mil/cmm (3.80-5.10) 03/26/17 21:55 Hgb 11.3 gm/dL (12-16) L 03/26/17 21:55 Hct 33.3 % (41.0-60) L 03/26/17 21:55 MCV 83.6 fl (81-100) 03/26/17 21:55 MCH 28.5 pg (27.0-31.0) 03/26/17 21:55 MCHC Differential 34.1 pg (28.0-36.0) 03/26/17 21:55 RDW 16.8 % (11.5-20.0) 03/26/17 21:55 Plt Count 214 Th/cmm (150-400) 03/26/17 21:55 MPV 8.3 fl 03/26/17 21:55 Neutrophils % 42.3 % (40.0-80.0) 03/26/17 21:55 Lymphocytes % 43.9 % (20.0-50.0) 03/26/17 21:55 Monocytes % 11.5 % (2.0-10.0) H 03/26/17 21:55 Eosinophils % 2.0 % (0.0-5.0) 03/26/17 21:55 Basophils % 0.3 % (0.0-2.0) 03/26/17 21:55 Sodium 132 mEq/L (136-145) L 03/26/17 21:55 Potassium 4.1 mEq/L (3.5-5.1) 03/26/17 21:55 Chloride 96 mEq/L (98-107) L 03/26/17 21:55 Carbon Dioxide 32.5 mEq/L (21.0-31.0) H 03/26/17 21:55 Anion Gap 7.6 (7.0-16.0) 03/26/17 21:55 BUN 18 mg/dL (7-25) 03/26/17 21:55 Creatinine 0.8 mg/dL (0.6-1.2) 03/26/17 21:55 Est GFR ( Amer) > 60.0 ml/min (>90) 03/26/17 21:55 Est GFR (Non-Af Amer) > 60.0 ml/min 03/26/17 21:55 BUN/Creatinine Ratio 22.5 03/26/17 21:55 Glucose 96 mg/dL (70-105) 03/26/17 21:55 Calcium 9.4 mg/dL (8.6-10.3) 03/26/17 21:55 Total Bilirubin 0.2 mg/dL (0.3-1.0) L 03/26/17 21:55 AST 9 U/L (13-39) L 03/26/17 21:55 ALT 6 U/L (7-52) L 03/26/17 21:55 Alkaline Phosphatase 87 U/L (34-104) 03/26/17 21:55 Total Protein 6.0 gm/dL (6.0-8.3) 03/26/17 21:55 Albumin 3.4 gm/dL (3.7-5.3) L 03/26/17 21:55 Globulin 2.6 gm/dL 03/26/17 21:55 Albumin/Globulin Ratio 1.3 (1.0-1.8) 03/26/17 21:55 TSH 3.67 uIU/ml (0.34-5.60) 03/26/17 21:55 Urine Source RANDOM 03/26/17 22:34 Urine Color YELLOW 03/26/17 22:34 Urine Clarity CLEAR (CLEAR) 03/26/17 22:34 Urine pH 5.5 (4.6 - 8.0) 03/26/17 22:34 Ur Specific [place] 1.025 (1.005-1.030) 03/26/17 22:34 Urine Protein NEGATIVE mg/dL (NEGATIVE) 03/26/17 22:34 Urine Glucose (UA) NEGATIVE mg/dL (NEGATIVE) 03/26/17 22:34 Urine Ketones NEGATIVE mg/dL (NEGATIVE) 03/26/17 22:34 Urine Blood NEGATIVE (NEGATIVE) 03/26/17 22:34 Urine Nitrate NEGATIVE (NEGATIVE) 03/26/17 22:34 Urine Bilirubin NEGATIVE (NEGATIVE) 03/26/17 22:34 Urine Urobilinogen 0.2 E.U./dL (0.2 - 1.0) 03/26/17 22:34 Ur Leukocyte Esterase NEGATIVE (NEGATIVE) 03/26/17 22:34 Urine RBC 0-2 /hpf (0-5) 03/26/17 22:34 Urine WBC 0-2 /hpf (0-5) 03/26/17 22:34 Ur Epithelial Cells FEW /lpf (FEW) 03/26/17 22:34 Urine Bacteria FEW /hpf (NONE SEEN) 03/26/17 22:34 RPR NONREACTIVE (NONREACTIVE) 03/26/17 21:55 - Physical Exam Vitals and I&O: Vital Signs Temp 97.4 F 03/28/17 14:00 Pulse 99 03/28/17 14:00 Resp 18 03/28/17 14:00 BP 137/79 03/28/17 14:00 Pulse Ox 96 03/28/17 14:00 Intake & Output 03/28/17 03/28/17 03/29/17 06:59 18:59 06:59 Intake Total 120 1100 Balance 120 1100 Intake: Oral 120 1100 Other: # Voids 3 4 # Bowel Movements 0 Active Medications: Current Medications Acetaminophen (Tylenol Extra Strength) 1,000 mg PO DAILY [facility] Stop: 05/26/17 08:59 Last Admin: 03/28/17 12:58 Dose: Not Given Ascorbic Acid (Vitamin C) 500 mg PO DAILY [facility] Stop: 05/26/17 08:59 Last Admin: 03/28/17 12:50 Dose: 500 mg Bisacodyl (Dulcolax 10 Mg Supp) 10 mg RC DAILY PRN PRN Reason: Constipation Stop: 05/25/17 23:30 Chlorpromazine (Thorazine) 75 mg PO Q6HR PRN; Protocol PRN Reason: Agitation Stop: 05/26/17 07:07 Clonazepam (Klonopin) 2 mg PO BID [facility] PRN Reason: Protocol Stop: 05/26/17 08:59 Last Admin: 03/28/17 14:42 Dose: 2 mg Docusate Sodium (Colace) 250 mg PO DAILY [facility] Stop: 05/26/17 08:59 Last Admin: 03/28/17 12:49 Dose: 250 mg Famotidine (Pepcid) 20 mg PO DAILY [facility] Stop: 05/26/17 08:59 Last Admin: 03/28/17 12:50 Dose: 20 mg Ferrous Sulfate (Iron) 325 mg PO DAILY [facility] Stop: 05/26/17 08:59 Last Admin: 03/28/17 12:50 Dose: 325 mg Folic Acid (Folate) 1 mg PO DAILY [facility] Stop: 05/26/17 08:59 Last Admin: 03/28/17 12:49 Dose: 1 mg Haloperidol (Haldol) 10 mg PO TID [facility] PRN Reason: Protocol Stop: 05/26/17 08:59 Last Admin: 03/28/17 12:49 Dose: 10 mg Levothyroxine Sodium (Synthroid) 0.05 mg PO QDAC [facility] Stop: 05/26/17 07:29 Last Admin: 03/28/17 06:43 Dose: 0.05 mg Magnesium Hydroxide (Milk Of Magnesia) 30 ml PO PRN PRN PRN Reason: Constipation Stop: 05/25/17 23:30 Quetiapine Fumarate (Seroquel) 100 mg PO TID [facility] PRN Reason: Protocol Stop: 05/27/17 08:59 Last Admin: 03/28/17 12:50 Dose: 100 mg Valproate Sodium (Depakene) 500 mg PO 1400,2100 [facility] PRN Reason: Protocol Stop: 05/26/17 13:59 Last Admin: 03/28/17 14:15 Dose: Not Given Valproate Sodium (Depakene) 750 mg PO DAILY [facility] PRN Reason: Protocol Stop: 05/26/17 08:59 Last Admin: 03/28/17 12:48 Dose: 500 mg Zinc Sulfate (Zinc Sulfate) 220 mg PO DAILY [facility] Stop: 05/26/17 08:59 Last Admin: 03/28/17 12:50 Dose: 220 mg Zolpidem Tartrate (Ambien) 5 mg PO PRN PRN Reason: Insomnia Stop: 05/26/17 00:06 Last Admin: 03/27/17 00:34 Dose: 5 mg - Procedures Procedures: Procedures Procedure Code Date INDIVID PSYCHOTHERAP NEC 94.39 06/08/08 OTHER GROUP THERAPY 94.44 06/08/08 Internal Medicine Assmt/Plan - Assessment Assessment: 1.ANEMIA. 2.HYPOTHYROIDISM 3.DJD. 4.DEMENTIA. - Plan Plan: CONTINUE ON CURRENT MEDICATION AND DIET.
[2017-03-29] MEDS: Levothyroxine 0.05 Mg Tab PO SCH (06:54)
--- NOTE | 2017-03-29 08:58 | Progress Notes ---
DATE: 03/28/2017 SUBJECTIVE: Chart reviewed and the patient interviewed. Also discussed the patient's condition with the staff and reviewed the records and labs. The patient is still extremely agitated and extremely irritable. The patient has been yelling and screaming constantly. She also is suspicious and is paranoid. The patient also has not been able to follow any of staff directions. Also, during my interview, the patient is actively responding to stimuli and she is still restless and disheveled. Otherwise, the patient is compliant with medications. ASSESSMENT: The patient is still in irritable and angry mood and the patient still needs close monitoring. PLAN: We will continue monitoring her behavior and her condition closely. Also, we will increase Haldol to 10 mg 3 times a day and also Thorazine will be increased to 75 mg on a p.r.n. basis and we will continue to follow up closely. JOB# [id number]
[2017-03-29] MEDS: Multivitamin w/ Minerals Tab PO SCH (09:00)
[2017-03-29] MEDS: Acetaminophen 500 MG TAB PO SCH (09:00)
[2017-03-29] MEDS: Ferrous Sulfate 325 MG TAB PO SCH (09:00)
--- NOTE | 2017-03-29 09:02 | Progress Notes ---
DATE: 03/29/2017 SUBJECTIVE: Chart reviewed and the patient interviewed. Also discussed the patient's condition with the staff and reviewed records and labs. The patient is still extremely angry and in irritable mood. The patient also is still having episodes of yelling and screaming. She also is still unable to follow directions. Also, during my interview, the patient is disheveled and mumbles with words, it is difficult to understand, which might be due to her mild mental retardation. She also is still yelling and screaming and unable to express herself all her feelings. ASSESSMENT: The patient is still psychotic and agitated. TREATMENT PLAN: We will increase Seroquel to 150 mg 3 times a day. Also, continue to work on her anger and her irritability and we will continue to follow up. JOB# [id number]
--- NOTE | 2017-03-29 21:25 | Internal Medicine Prog Note ---
Internal Medicine Subjective - Subjective Service Date: 03/29/17 Patient seen and examined:: without staff Patient is:: awake, in bed, confused Per staff patient has:: no adverse event Internal Medicine Objective - Results Result Diagrams: 03/26/17 21:55 03/26/17 21:55 Recent Labs: Laboratory Last Values WBC 8.2 Th/cmm (4.8-10.8) 03/26/17 21:55 RBC 3.98 Mil/cmm (3.80-5.10) 03/26/17 21:55 Hgb 11.3 gm/dL (12-16) L 03/26/17 21:55 Hct 33.3 % (41.0-60) L 03/26/17 21:55 MCV 83.6 fl (81-100) 03/26/17 21:55 MCH 28.5 pg (27.0-31.0) 03/26/17 21:55 MCHC Differential 34.1 pg (28.0-36.0) 03/26/17 21:55 RDW 16.8 % (11.5-20.0) 03/26/17 21:55 Plt Count 214 Th/cmm (150-400) 03/26/17 21:55 MPV 8.3 fl 03/26/17 21:55 Neutrophils % 42.3 % (40.0-80.0) 03/26/17 21:55 Lymphocytes % 43.9 % (20.0-50.0) 03/26/17 21:55 Monocytes % 11.5 % (2.0-10.0) H 03/26/17 21:55 Eosinophils % 2.0 % (0.0-5.0) 03/26/17 21:55 Basophils % 0.3 % (0.0-2.0) 03/26/17 21:55 Sodium 132 mEq/L (136-145) L 03/26/17 21:55 Potassium 4.1 mEq/L (3.5-5.1) 03/26/17 21:55 Chloride 96 mEq/L (98-107) L 03/26/17 21:55 Carbon Dioxide 32.5 mEq/L (21.0-31.0) H 03/26/17 21:55 Anion Gap 7.6 (7.0-16.0) 03/26/17 21:55 BUN 18 mg/dL (7-25) 03/26/17 21:55 Creatinine 0.8 mg/dL (0.6-1.2) 03/26/17 21:55 Est GFR ( Amer) > 60.0 ml/min (>90) 03/26/17 21:55 Est GFR (Non-Af Amer) > 60.0 ml/min 03/26/17 21:55 BUN/Creatinine Ratio 22.5 03/26/17 21:55 Glucose 96 mg/dL (70-105) 03/26/17 21:55 Calcium 9.4 mg/dL (8.6-10.3) 03/26/17 21:55 Total Bilirubin 0.2 mg/dL (0.3-1.0) L 03/26/17 21:55 AST 9 U/L (13-39) L 03/26/17 21:55 ALT 6 U/L (7-52) L 03/26/17 21:55 Alkaline Phosphatase 87 U/L (34-104) 03/26/17 21:55 Total Protein 6.0 gm/dL (6.0-8.3) 03/26/17 21:55 Albumin 3.4 gm/dL (3.7-5.3) L 03/26/17 21:55 Globulin 2.6 gm/dL 03/26/17 21:55 Albumin/Globulin Ratio 1.3 (1.0-1.8) 03/26/17 21:55 TSH 3.67 uIU/ml (0.34-5.60) 03/26/17 21:55 Urine Source RANDOM 03/26/17 22:34 Urine Color YELLOW 03/26/17 22:34 Urine Clarity CLEAR (CLEAR) 03/26/17 22:34 Urine pH 5.5 (4.6 - 8.0) 03/26/17 22:34 Ur Specific [place] 1.025 (1.005-1.030) 03/26/17 22:34 Urine Protein NEGATIVE mg/dL (NEGATIVE) 03/26/17 22:34 Urine Glucose (UA) NEGATIVE mg/dL (NEGATIVE) 03/26/17 22:34 Urine Ketones NEGATIVE mg/dL (NEGATIVE) 03/26/17 22:34 Urine Blood NEGATIVE (NEGATIVE) 03/26/17 22:34 Urine Nitrate NEGATIVE (NEGATIVE) 03/26/17 22:34 Urine Bilirubin NEGATIVE (NEGATIVE) 03/26/17 22:34 Urine Urobilinogen 0.2 E.U./dL (0.2 - 1.0) 03/26/17 22:34 Ur Leukocyte Esterase NEGATIVE (NEGATIVE) 03/26/17 22:34 Urine RBC 0-2 /hpf (0-5) 03/26/17 22:34 Urine WBC 0-2 /hpf (0-5) 03/26/17 22:34 Ur Epithelial Cells FEW /lpf (FEW) 03/26/17 22:34 Urine Bacteria FEW /hpf (NONE SEEN) 03/26/17 22:34 Valproic Acid 43.5 ug/mL (50.0-100.0) L 03/29/17 07:30 RPR NONREACTIVE (NONREACTIVE) 03/26/17 21:55 - Physical Exam Vitals and I&O: Vital Signs Temp 98 F 03/29/17 20:00 Pulse 84 03/29/17 20:00 Resp 19 03/29/17 20:00 BP 121/69 03/29/17 20:00 Pulse Ox 97 03/29/17 20:00 Intake & Output 03/29/17 03/29/17 03/30/17 06:59 18:59 06:59 Intake Total 900 Balance 900 Intake: Oral 900 Other: # Voids 3 # Bowel Movements 0 Active Medications: Current Medications Acetaminophen (Tylenol Extra Strength) 1,000 mg PO DAILY [facility] Stop: 05/26/17 08:59 Last Admin: 03/29/17 09:00 Dose: 1,000 mg Ascorbic Acid (Vitamin C) 500 mg PO DAILY [facility] Stop: 05/26/17 08:59 Last Admin: 03/29/17 09:00 Dose: 500 mg Bisacodyl (Dulcolax 10 Mg Supp) 10 mg RC DAILY PRN PRN Reason: Constipation Stop: 05/25/17 23:30 Chlorpromazine (Thorazine) 75 mg PO Q6HR PRN; Protocol PRN Reason: Agitation Stop: 05/26/17 07:07 Clonazepam (Klonopin) 2 mg PO BID [facility] PRN Reason: Protocol Stop: 05/26/17 08:59 Last Admin: 03/29/17 17:21 Dose: 2 mg Docusate Sodium (Colace) 250 mg PO DAILY [facility] Stop: 05/26/17 08:59 Last Admin: 03/29/17 09:00 Dose: 250 mg Famotidine (Pepcid) 20 mg PO DAILY [facility] Stop: 05/26/17 08:59 Last Admin: 03/29/17 09:00 Dose: 20 mg Ferrous Sulfate (Iron) 325 mg PO DAILY [facility] Stop: 05/26/17 08:59 Last Admin: 03/29/17 09:00 Dose: 325 mg Folic Acid (Folate) 1 mg PO DAILY [facility] Stop: 05/26/17 08:59 Last Admin: 03/29/17 09:00 Dose: 1 mg Haloperidol (Haldol) 10 mg PO TID [facility] PRN Reason: Protocol Stop: 05/26/17 08:59 Last Admin: 03/29/17 15:00 Dose: 10 mg Levothyroxine Sodium (Synthroid) 0.05 mg PO QDAC [facility] Stop: 05/26/17 07:29 Last Admin: 03/29/17 06:54 Dose: 0.05 mg Magnesium Hydroxide (Milk Of Magnesia) 30 ml PO PRN PRN PRN Reason: Constipation Stop: 05/25/17 23:30 Quetiapine Fumarate (Seroquel) 150 mg PO TID [facility] PRN Reason: Protocol Stop: 05/27/17 08:59 Last Admin: 03/29/17 15:00 Dose: 150 mg Valproate Sodium (Depakene) 500 mg PO 1400,2100 [facility] PRN Reason: Protocol Stop: 05/26/17 13:59 Last Admin: 03/29/17 15:00 Dose: 500 mg Valproate Sodium (Depakene) 750 mg PO DAILY [facility] PRN Reason: Protocol Stop: 05/26/17 08:59 Last Admin: 03/29/17 09:00 Dose: 750 mg Zinc Sulfate (Zinc Sulfate) 220 mg PO DAILY [facility] Stop: 05/26/17 08:59 Last Admin: 03/29/17 09:00 Dose: 220 mg Zolpidem Tartrate (Ambien) 5 mg PO PRN PRN Reason: Insomnia Stop: 05/26/17 00:06 Last Admin: 03/27/17 00:34 Dose: 5 mg General: demented HEENT: NC/AT, PERRLA, EOMI, anicteric sclerae, throat clear Neck: Supple, No JVD, No thyromegaly, +2 carotid pulse wo bruit, No LAD Lungs: CTAB Cardiovascular: Normal S1, Normal S2, without murmur Abdomen: soft, non-tender, non-distended Extremities: clear Neurological: no change - Procedures Procedures: Procedures Procedure Code Date INDIVID PSYCHOTHERAP NEC 94.39 06/08/08 OTHER GROUP THERAPY 94.44 06/08/08 Internal Medicine Assmt/Plan - Assessment Assessment: 1.ANEMIA. 2.HYPOTHYROIDISM 3.DJD. 4.DEMENTIA. - Plan Plan: CONTINUE ON CURRENT MEDICATION AND DIET.
[2017-03-30] MEDS: Levothyroxine 0.05 Mg Tab PO SCH (06:58)
[2017-03-30] MEDS: Ferrous Sulfate 325 MG TAB PO SCH (08:30)
[2017-03-30] MEDS: Multivitamin w/ Minerals Tab PO SCH (08:30)
[2017-03-30] MEDS: Acetaminophen 500 MG TAB PO SCH (08:30)
--- NOTE | 2017-03-30 18:25 | General Progress Note ---
Subjective - Review of Systems Service Date: 03/30/17 Subjective: resting comfortably no distress Objective - Results Result Diagrams: 03/26/17 21:55 03/26/17 21:55 Recent Labs: Laboratory Last Values WBC 8.2 Th/cmm (4.8-10.8) 03/26/17 21:55 RBC 3.98 Mil/cmm (3.80-5.10) 03/26/17 21:55 Hgb 11.3 gm/dL (12-16) L 03/26/17 21:55 Hct 33.3 % (41.0-60) L 03/26/17 21:55 MCV 83.6 fl (81-100) 03/26/17 21:55 MCH 28.5 pg (27.0-31.0) 03/26/17 21:55 MCHC Differential 34.1 pg (28.0-36.0) 03/26/17 21:55 RDW 16.8 % (11.5-20.0) 03/26/17 21:55 Plt Count 214 Th/cmm (150-400) 03/26/17 21:55 MPV 8.3 fl 03/26/17 21:55 Neutrophils % 42.3 % (40.0-80.0) 03/26/17 21:55 Lymphocytes % 43.9 % (20.0-50.0) 03/26/17 21:55 Monocytes % 11.5 % (2.0-10.0) H 03/26/17 21:55 Eosinophils % 2.0 % (0.0-5.0) 03/26/17 21:55 Basophils % 0.3 % (0.0-2.0) 03/26/17 21:55 Sodium 132 mEq/L (136-145) L 03/26/17 21:55 Potassium 4.1 mEq/L (3.5-5.1) 03/26/17 21:55 Chloride 96 mEq/L (98-107) L 03/26/17 21:55 Carbon Dioxide 32.5 mEq/L (21.0-31.0) H 03/26/17 21:55 Anion Gap 7.6 (7.0-16.0) 03/26/17 21:55 BUN 18 mg/dL (7-25) 03/26/17 21:55 Creatinine 0.8 mg/dL (0.6-1.2) 03/26/17 21:55 Est GFR ( Amer) > 60.0 ml/min (>90) 03/26/17 21:55 Est GFR (Non-Af Amer) > 60.0 ml/min 03/26/17 21:55 BUN/Creatinine Ratio 22.5 03/26/17 21:55 Glucose 96 mg/dL (70-105) 03/26/17 21:55 Calcium 9.4 mg/dL (8.6-10.3) 03/26/17 21:55 Total Bilirubin 0.2 mg/dL (0.3-1.0) L 03/26/17 21:55 AST 9 U/L (13-39) L 03/26/17 21:55 ALT 6 U/L (7-52) L 03/26/17 21:55 Alkaline Phosphatase 87 U/L (34-104) 03/26/17 21:55 Total Protein 6.0 gm/dL (6.0-8.3) 03/26/17 21:55 Albumin 3.4 gm/dL (3.7-5.3) L 03/26/17 21:55 Globulin 2.6 gm/dL 03/26/17 21:55 Albumin/Globulin Ratio 1.3 (1.0-1.8) 03/26/17 21:55 TSH 3.67 uIU/ml (0.34-5.60) 03/26/17 21:55 Urine Source RANDOM 03/26/17 22:34 Urine Color YELLOW 03/26/17 22:34 Urine Clarity CLEAR (CLEAR) 03/26/17 22:34 Urine pH 5.5 (4.6 - 8.0) 03/26/17 22:34 Ur Specific [place] 1.025 (1.005-1.030) 03/26/17 22:34 Urine Protein NEGATIVE mg/dL (NEGATIVE) 03/26/17 22:34 Urine Glucose (UA) NEGATIVE mg/dL (NEGATIVE) 03/26/17 22:34 Urine Ketones NEGATIVE mg/dL (NEGATIVE) 03/26/17 22:34 Urine Blood NEGATIVE (NEGATIVE) 03/26/17 22:34 Urine Nitrate NEGATIVE (NEGATIVE) 03/26/17 22:34 Urine Bilirubin NEGATIVE (NEGATIVE) 03/26/17 22:34 Urine Urobilinogen 0.2 E.U./dL (0.2 - 1.0) 03/26/17 22:34 Ur Leukocyte Esterase NEGATIVE (NEGATIVE) 03/26/17 22:34 Urine RBC 0-2 /hpf (0-5) 03/26/17 22:34 Urine WBC 0-2 /hpf (0-5) 03/26/17 22:34 Ur Epithelial Cells FEW /lpf (FEW) 03/26/17 22:34 Urine Bacteria FEW /hpf (NONE SEEN) 03/26/17 22:34 Valproic Acid 43.5 ug/mL (50.0-100.0) L 03/29/17 07:30 RPR NONREACTIVE (NONREACTIVE) 03/26/17 21:55 - Physical Exam Vitals and I&O: Vital Signs Temp 97.0 F 03/30/17 14:00 Pulse 93 03/30/17 14:00 Resp 20 03/30/17 14:00 BP 120/68 03/30/17 14:00 Pulse Ox 99 03/30/17 14:00 Intake & Output 03/29/17 03/30/17 03/30/17 18:59 06:59 18:59 Intake Total 900 120 Balance 900 120 Intake: Oral 900 120 Other: # Voids 3 3 # Bowel Movements 0 Active Medications: Current Medications Acetaminophen (Tylenol Extra Strength) 1,000 mg PO DAILY [facility] Stop: 05/26/17 08:59 Last Admin: 03/30/17 08:30 Dose: 1,000 mg Ascorbic Acid (Vitamin C) 500 mg PO DAILY [facility] Stop: 05/26/17 08:59 Last Admin: 03/30/17 08:30 Dose: 500 mg Bisacodyl (Dulcolax 10 Mg Supp) 10 mg RC DAILY PRN PRN Reason: Constipation Stop: 05/25/17 23:30 Chlorpromazine (Thorazine) 75 mg PO Q6HR PRN; Protocol PRN Reason: Agitation Stop: 05/26/17 07:07 Clonazepam (Klonopin) 2 mg PO BID [facility] PRN Reason: Protocol Stop: 05/26/17 08:59 Last Admin: 03/30/17 16:09 Dose: 2 mg Docusate Sodium (Colace) 250 mg PO DAILY [facility] Stop: 05/26/17 08:59 Last Admin: 03/30/17 08:30 Dose: 250 mg Famotidine (Pepcid) 20 mg PO DAILY [facility] Stop: 05/26/17 08:59 Last Admin: 03/30/17 08:30 Dose: 20 mg Ferrous Sulfate (Iron) 325 mg PO DAILY [facility] Stop: 05/26/17 08:59 Last Admin: 03/30/17 08:30 Dose: 325 mg Folic Acid (Folate) 1 mg PO DAILY [facility] Stop: 05/26/17 08:59 Last Admin: 03/30/17 08:30 Dose: 1 mg Haloperidol (Haldol) 10 mg PO TID [facility] PRN Reason: Protocol Stop: 05/26/17 08:59 Last Admin: 03/30/17 13:43 Dose: 10 mg Levothyroxine Sodium (Synthroid) 0.05 mg PO QDAC [facility] Stop: 05/26/17 07:29 Last Admin: 03/30/17 06:58 Dose: 0.05 mg Magnesium Hydroxide (Milk Of Magnesia) 30 ml PO PRN PRN PRN Reason: Constipation Stop: 05/25/17 23:30 Quetiapine Fumarate (Seroquel) 150 mg PO TID [facility] PRN Reason: Protocol Stop: 05/27/17 08:59 Last Admin: 03/30/17 13:44 Dose: 150 mg Valproate Sodium (Depakene) 500 mg PO 1400,2100 [facility] PRN Reason: Protocol Stop: 05/26/17 13:59 Last Admin: 03/30/17 13:43 Dose: 500 mg Valproate Sodium (Depakene) 750 mg PO DAILY [facility] PRN Reason: Protocol Stop: 05/26/17 08:59 Last Admin: 03/30/17 08:30 Dose: 750 mg Zinc Sulfate (Zinc Sulfate) 220 mg PO DAILY [facility] Stop: 05/26/17 08:59 Last Admin: 03/30/17 08:30 Dose: 220 mg Zolpidem Tartrate (Ambien) 5 mg PO PRN PRN Reason: Insomnia Stop: 05/26/17 00:06 Last Admin: 03/27/17 00:34 Dose: 5 mg General: No acute distress HEENT: Atraumatic, PERRLA Neck: Supple, JVD Cardiovascular: Regular rate, Normal S1, Normal S2 Lungs: Clear to auscultation Abdomen: Bowel sounds, Soft - Procedures Procedures: Procedures Procedure Code Date INDIVID PSYCHOTHERAP NEC 94.39 06/08/08 OTHER GROUP THERAPY 94.44 06/08/08 Assessment/Plan - Problem List Patient Problems: All Active Problems Anemia (Acute) D64.9 Anxiety (Acute) F41.9 EXTREME AGITATION AND LASHING OUT AT STA (Acute) Hyponatremia (Acute) E87.1 Hypothyroid (Acute) E03.9 Pseudobulbar affect (Acute) F48.2 Seizure (Acute) R56.9 - Assessment Assessment: 1.ANEMIA. 2.HYPOTHYROIDISM 3.DJD. 4.DEMENTIA. - Plan Plan: cont current treatment Nutritional Asmnt/Malnutr-PDOC - Dietary Evaluation Malnutrition Findings (Please click <Entered> for more info): Nutritional Asmnt/Malnutrition Start: 03/30/17 11: 38 Text: Status: Complete Freq: Document 03/30/17 11:38 MMNEEL (Rec: 03/30/17 12:03 MMULAMOL ZARAGOZA [email or web address]) Nutritional Asmnt/Malnutrition Patient General Information Nutritional Screening Moderate Risk Diagnosis Psychosis Pertinent Medical Hx/Surgical Hx Hypothyroidism, dementia Subjective Information Patient was admitted from SNF with agitation, severe agressiveness and bizarre behavior per nursingn notes. Also per nursing notes, patient is mentally changed, behaving like a child. Unable to answer questions re: nutrition history. Current Diet Order/ Nutrition Support Regular Patient / S.O Can Pertinent Medications vitamin C, dulcolax, colace, pepcid, iron, folate, synthroid, MOM, zinc sulfate Pertinent Labs (03/26) Na 132, Albumin 3.4 Nutritional Hx/Data Height 1.68 m Height (Calculated Centimeters) 167.6 Current Weight (lbs) 72.575 kg Weight (Calculated Kilograms) 72.6 Weight (Calculated Grams) 92357.8 [place] Body Weight 130 % [place] Body Weight 123 Body Mass Index (BMI) 25.8 Recent Weight Change No Weight Status Overweight GI Symptoms GI Symptoms None Last BM None noted Difficult in: None Food Allergies No Cultural/Ethnic/Latter-Day Belief None indicated Usual diet at home Unknown Skin Integrity/Comment: Faisal 19, intact Current %PO Good (75-100%) Estimated Nutritional Goals BEE in Kcals: Using Current wt Kcals Calculated 7523-1633 kcal/day (25-30 kcal /kg) Protein: Using Current wt Protein g/kg: .8-1 gm/kg Protein Calculated 60-70 gm/day Fluid: ml 7332-7664 ml/day (1 ml/kcal) Nutritional Problem 1. Problem Problem Altered nutrition related labs Etiology related to electrolyte imbalance aeb Signs/Symptoms: Na 132 Intervention/Recommendation Comments 1. Continue regular diet as tolerated by patient. 2. If Na remains low, consider fluid restriction per MD. Expected Outcomes/Goals Expected Outcomes/Goals Oral intake to remain adequate (>75% of meals), weight stable, Na normalizes.
--- NOTE | 2017-03-30 21:36 | Progress Notes ---
DATE: 03/30/2017 SUBJECTIVE: The patient was seen today on 03/30/2017, admitted, irritability, agitation, difficulty following directions, [facility], yelling, screaming, and demanding. The patient yelling to go home today, difficult to interview, poor historian. Dr. Gomez has been seeing this patient, noting that she remains agitated, loud, yelling, still agitation, psychotic, irritable, and impulsive. MEDICATIONS: Reviewed including doses and frequencies. ASSESSMENT: The patient remains symptomatic, loud, yelling, screaming, still with ongoing mood symptoms. PLAN: Recent dose increase of Seroquel. Given her ongoing symptoms, she is not safe for discharge. [facility]# [id number]
[2017-03-31] MEDS: Levothyroxine 0.05 Mg Tab PO SCH (07:02)
[2017-03-31] MEDS: Acetaminophen 500 MG TAB PO SCH (08:57)
[2017-03-31] MEDS: Ferrous Sulfate 325 MG TAB PO SCH (08:57)
[2017-03-31] MEDS: Multivitamin w/ Minerals Tab PO SCH (08:58)
--- NOTE | 2017-03-31 18:11 | Progress Notes ---
DATE: 03/31/2017 SUBJECTIVE: The patient is seen today, 03/31/2017. The patient is disruptive, intrusive, difficulty following directions, still demanding to leave, yelling, screaming, wanting to go home, seemingly confused, disoriented. Medications were reviewed including doses and frequencies, eating fairly well with prompting, sleeping fairly well, [employer] awakenings. The patient is not a good historian, ruminative on discharge. ASSESSMENT: The patient is symptomatic, loud, yelling, screaming. PLAN: We will continue to monitor, continue to titrate Seroquel as needed. [facility]# [id number]
--- NOTE | 2017-03-31 19:23 | General Progress Note ---
Subjective - Review of Systems Service Date: 03/31/17 Subjective: resting comfortably no distress Objective - Results Result Diagrams: 03/26/17 21:55 03/26/17 21:55 Recent Labs: Laboratory Last Values WBC 8.2 Th/cmm (4.8-10.8) 03/26/17 21:55 RBC 3.98 Mil/cmm (3.80-5.10) 03/26/17 21:55 Hgb 11.3 gm/dL (12-16) L 03/26/17 21:55 Hct 33.3 % (41.0-60) L 03/26/17 21:55 MCV 83.6 fl (81-100) 03/26/17 21:55 MCH 28.5 pg (27.0-31.0) 03/26/17 21:55 MCHC Differential 34.1 pg (28.0-36.0) 03/26/17 21:55 RDW 16.8 % (11.5-20.0) 03/26/17 21:55 Plt Count 214 Th/cmm (150-400) 03/26/17 21:55 MPV 8.3 fl 03/26/17 21:55 Neutrophils % 42.3 % (40.0-80.0) 03/26/17 21:55 Lymphocytes % 43.9 % (20.0-50.0) 03/26/17 21:55 Monocytes % 11.5 % (2.0-10.0) H 03/26/17 21:55 Eosinophils % 2.0 % (0.0-5.0) 03/26/17 21:55 Basophils % 0.3 % (0.0-2.0) 03/26/17 21:55 Sodium 132 mEq/L (136-145) L 03/26/17 21:55 Potassium 4.1 mEq/L (3.5-5.1) 03/26/17 21:55 Chloride 96 mEq/L (98-107) L 03/26/17 21:55 Carbon Dioxide 32.5 mEq/L (21.0-31.0) H 03/26/17 21:55 Anion Gap 7.6 (7.0-16.0) 03/26/17 21:55 BUN 18 mg/dL (7-25) 03/26/17 21:55 Creatinine 0.8 mg/dL (0.6-1.2) 03/26/17 21:55 Est GFR ( Amer) > 60.0 ml/min (>90) 03/26/17 21:55 Est GFR (Non-Af Amer) > 60.0 ml/min 03/26/17 21:55 BUN/Creatinine Ratio 22.5 03/26/17 21:55 Glucose 96 mg/dL (70-105) 03/26/17 21:55 Calcium 9.4 mg/dL (8.6-10.3) 03/26/17 21:55 Total Bilirubin 0.2 mg/dL (0.3-1.0) L 03/26/17 21:55 AST 9 U/L (13-39) L 03/26/17 21:55 ALT 6 U/L (7-52) L 03/26/17 21:55 Alkaline Phosphatase 87 U/L (34-104) 03/26/17 21:55 Total Protein 6.0 gm/dL (6.0-8.3) 03/26/17 21:55 Albumin 3.4 gm/dL (3.7-5.3) L 03/26/17 21:55 Globulin 2.6 gm/dL 03/26/17 21:55 Albumin/Globulin Ratio 1.3 (1.0-1.8) 03/26/17 21:55 TSH 3.67 uIU/ml (0.34-5.60) 03/26/17 21:55 Urine Source RANDOM 03/26/17 22:34 Urine Color YELLOW 03/26/17 22:34 Urine Clarity CLEAR (CLEAR) 03/26/17 22:34 Urine pH 5.5 (4.6 - 8.0) 03/26/17 22:34 Ur Specific [place] 1.025 (1.005-1.030) 03/26/17 22:34 Urine Protein NEGATIVE mg/dL (NEGATIVE) 03/26/17 22:34 Urine Glucose (UA) NEGATIVE mg/dL (NEGATIVE) 03/26/17 22:34 Urine Ketones NEGATIVE mg/dL (NEGATIVE) 03/26/17 22:34 Urine Blood NEGATIVE (NEGATIVE) 03/26/17 22:34 Urine Nitrate NEGATIVE (NEGATIVE) 03/26/17 22:34 Urine Bilirubin NEGATIVE (NEGATIVE) 03/26/17 22:34 Urine Urobilinogen 0.2 E.U./dL (0.2 - 1.0) 03/26/17 22:34 Ur Leukocyte Esterase NEGATIVE (NEGATIVE) 03/26/17 22:34 Urine RBC 0-2 /hpf (0-5) 03/26/17 22:34 Urine WBC 0-2 /hpf (0-5) 03/26/17 22:34 Ur Epithelial Cells FEW /lpf (FEW) 03/26/17 22:34 Urine Bacteria FEW /hpf (NONE SEEN) 03/26/17 22:34 Valproic Acid 43.5 ug/mL (50.0-100.0) L 03/29/17 07:30 RPR NONREACTIVE (NONREACTIVE) 03/26/17 21:55 - Physical Exam Vitals and I&O: Vital Signs Temp 98.2 F 03/31/17 15:05 Pulse 84 03/31/17 15:05 Resp 18 03/31/17 15:05 BP 120/72 03/31/17 15:05 Pulse Ox 97 03/31/17 15:05 Intake & Output 03/31/17 03/31/17 04/01/17 06:59 18:59 06:59 Intake Total 1200 Balance 1200 Intake: Oral 1200 Other: # Voids 4 # Bowel Movements 1 Active Medications: Current Medications Acetaminophen (Tylenol Extra Strength) 1,000 mg PO DAILY [facility] Stop: 05/26/17 08:59 Last Admin: 03/31/17 08:57 Dose: 1,000 mg Ascorbic Acid (Vitamin C) 500 mg PO DAILY [facility] Stop: 05/26/17 08:59 Last Admin: 03/31/17 08:56 Dose: 500 mg Bisacodyl (Dulcolax 10 Mg Supp) 10 mg RC DAILY PRN PRN Reason: Constipation Stop: 05/25/17 23:30 Chlorpromazine (Thorazine) 75 mg PO Q6HR PRN; Protocol PRN Reason: Agitation Stop: 05/26/17 07:07 Clonazepam (Klonopin) 2 mg PO BID [facility] PRN Reason: Protocol Stop: 05/26/17 08:59 Last Admin: 03/31/17 17:45 Dose: 2 mg Docusate Sodium (Colace) 250 mg PO DAILY [facility] Stop: 05/26/17 08:59 Last Admin: 03/31/17 08:55 Dose: 250 mg Famotidine (Pepcid) 20 mg PO DAILY [facility] Stop: 05/26/17 08:59 Last Admin: 03/31/17 08:57 Dose: 20 mg Ferrous Sulfate (Iron) 325 mg PO DAILY [facility] Stop: 05/26/17 08:59 Last Admin: 03/31/17 08:57 Dose: 325 mg Folic Acid (Folate) 1 mg PO DAILY [facility] Stop: 05/26/17 08:59 Last Admin: 03/31/17 08:56 Dose: 1 mg Haloperidol (Haldol) 10 mg PO TID [facility] PRN Reason: Protocol Stop: 05/26/17 08:59 Last Admin: 03/31/17 08:56 Dose: 10 mg Levothyroxine Sodium (Synthroid) 0.05 mg PO QDAC [facility] Stop: 05/26/17 07:29 Last Admin: 03/31/17 07:02 Dose: 0.05 mg Magnesium Hydroxide (Milk Of Magnesia) 30 ml PO PRN PRN PRN Reason: Constipation Stop: 05/25/17 23:30 Quetiapine Fumarate (Seroquel) 150 mg PO TID [facility] PRN Reason: Protocol Stop: 05/27/17 08:59 Last Admin: 03/31/17 08:57 Dose: 150 mg Valproate Sodium (Depakene) 500 mg PO 1400,2100 [facility] PRN Reason: Protocol Stop: 05/26/17 13:59 Last Admin: 03/30/17 20:51 Dose: 500 mg Valproate Sodium (Depakene) 750 mg PO DAILY [facility] PRN Reason: Protocol Stop: 05/26/17 08:59 Last Admin: 03/31/17 08:56 Dose: 750 mg Zinc Sulfate (Zinc Sulfate) 220 mg PO DAILY [facility] Stop: 05/26/17 08:59 Last Admin: 03/31/17 08:55 Dose: 220 mg Zolpidem Tartrate (Ambien) 5 mg PO PRN PRN Reason: Insomnia Stop: 05/26/17 00:06 Last Admin: 03/30/17 20:50 Dose: 5 mg General: No acute distress HEENT: Atraumatic, PERRLA Neck: Supple, JVD Cardiovascular: Regular rate, Normal S1, Normal S2 Lungs: Clear to auscultation Abdomen: Bowel sounds, Soft - Procedures Procedures: Procedures Procedure Code Date INDIVID PSYCHOTHERAP NEC 94.39 06/08/08 OTHER GROUP THERAPY 94.44 06/08/08 Assessment/Plan - Problem List Patient Problems: All Active Problems Anemia (Acute) D64.9 Anxiety (Acute) F41.9 EXTREME AGITATION AND LASHING OUT AT STA (Acute) Hyponatremia (Acute) E87.1 Hypothyroid (Acute) E03.9 Pseudobulbar affect (Acute) F48.2 Seizure (Acute) R56.9 - Assessment Assessment: 1.ANEMIA. 2.HYPOTHYROIDISM 3.DJD. 4.DEMENTIA. - Plan Plan: cont current treatment Nutritional Asmnt/Malnutr-PDOC - Dietary Evaluation Malnutrition Findings (Please click <Entered> for more info): Nutritional Asmnt/Malnutrition Start: 03/30/17 11: 38 Text: Status: Complete Freq: Document 03/30/17 11:38 MMNEEL (Rec: 03/30/17 12:03 MMULAMOL ZARAGOZA- FNS1) Nutritional Asmnt/Malnutrition Patient General Information Nutritional Screening Moderate Risk Diagnosis Psychosis Pertinent Medical Hx/Surgical Hx Hypothyroidism, dementia Subjective Information Patient was admitted from SNF with agitation, severe agressiveness and bizarre behavior per nursingn notes. Also per nursing notes, patient is mentally changed, behaving like a child. Unable to answer questions re: nutrition history. Current Diet Order/ Nutrition Support Regular Patient / S.O Can Pertinent Medications vitamin C, dulcolax, colace, pepcid, iron, folate, synthroid, MOM, zinc sulfate Pertinent Labs (03/26) Na 132, Albumin 3.4 Nutritional Hx/Data Height 1.68 m Height (Calculated Centimeters) 167.6 Current Weight (lbs) 72.575 kg Weight (Calculated Kilograms) 72.6 Weight (Calculated Grams) 13833.8 [place] Body Weight 130 % [place] Body Weight 123 Body Mass Index (BMI) 25.8 Recent Weight Change No Weight Status Overweight GI Symptoms GI Symptoms None Last BM None noted Difficult in: None Food Allergies No Cultural/Ethnic/Yazdanism Belief None indicated Usual diet at home Unknown Skin Integrity/Comment: Faisal 19, intact Current %PO Good (75-100%) Estimated Nutritional Goals BEE in Kcals: Using Current wt Kcals Calculated 3999-0512 kcal/day (25-30 kcal /kg) Protein: Using Current wt Protein g/kg: .8-1 gm/kg Protein Calculated 60-70 gm/day Fluid: ml 2337-8844 ml/day (1 ml/kcal) Nutritional Problem 1. Problem Problem Altered nutrition related labs Etiology related to electrolyte imbalance aeb Signs/Symptoms: Na 132 Intervention/Recommendation Comments 1. Continue regular diet as tolerated by patient. 2. If Na remains low, consider fluid restriction per MD. Expected Outcomes/Goals Expected Outcomes/Goals Oral intake to remain adequate (>75% of meals), weight stable, Na normalizes.
[2017-04-01] MEDS: Levothyroxine 0.05 Mg Tab PO SCH (06:49)
[2017-04-01] MEDS: Acetaminophen 500 MG TAB PO SCH ×2 (08:57→10:54)
[2017-04-01] MEDS: Multivitamin w/ Minerals Tab PO SCH (08:59)
[2017-04-01] MEDS: Ferrous Sulfate 325 MG TAB PO SCH (08:59)
--- NOTE | 2017-04-01 16:50 | General Progress Note ---
Subjective - Review of Systems Service Date: 04/01/17 Subjective: resting comfortably no distress Objective - Results Result Diagrams: 03/26/17 21:55 03/26/17 21:55 Recent Labs: Laboratory Last Values WBC 8.2 Th/cmm (4.8-10.8) 03/26/17 21:55 RBC 3.98 Mil/cmm (3.80-5.10) 03/26/17 21:55 Hgb 11.3 gm/dL (12-16) L 03/26/17 21:55 Hct 33.3 % (41.0-60) L 03/26/17 21:55 MCV 83.6 fl (81-100) 03/26/17 21:55 MCH 28.5 pg (27.0-31.0) 03/26/17 21:55 MCHC Differential 34.1 pg (28.0-36.0) 03/26/17 21:55 RDW 16.8 % (11.5-20.0) 03/26/17 21:55 Plt Count 214 Th/cmm (150-400) 03/26/17 21:55 MPV 8.3 fl 03/26/17 21:55 Neutrophils % 42.3 % (40.0-80.0) 03/26/17 21:55 Lymphocytes % 43.9 % (20.0-50.0) 03/26/17 21:55 Monocytes % 11.5 % (2.0-10.0) H 03/26/17 21:55 Eosinophils % 2.0 % (0.0-5.0) 03/26/17 21:55 Basophils % 0.3 % (0.0-2.0) 03/26/17 21:55 Sodium 132 mEq/L (136-145) L 03/26/17 21:55 Potassium 4.1 mEq/L (3.5-5.1) 03/26/17 21:55 Chloride 96 mEq/L (98-107) L 03/26/17 21:55 Carbon Dioxide 32.5 mEq/L (21.0-31.0) H 03/26/17 21:55 Anion Gap 7.6 (7.0-16.0) 03/26/17 21:55 BUN 18 mg/dL (7-25) 03/26/17 21:55 Creatinine 0.8 mg/dL (0.6-1.2) 03/26/17 21:55 Est GFR ( Amer) > 60.0 ml/min (>90) 03/26/17 21:55 Est GFR (Non-Af Amer) > 60.0 ml/min 03/26/17 21:55 BUN/Creatinine Ratio 22.5 03/26/17 21:55 Glucose 96 mg/dL (70-105) 03/26/17 21:55 Calcium 9.4 mg/dL (8.6-10.3) 03/26/17 21:55 Total Bilirubin 0.2 mg/dL (0.3-1.0) L 03/26/17 21:55 AST 9 U/L (13-39) L 03/26/17 21:55 ALT 6 U/L (7-52) L 03/26/17 21:55 Alkaline Phosphatase 87 U/L (34-104) 03/26/17 21:55 Total Protein 6.0 gm/dL (6.0-8.3) 03/26/17 21:55 Albumin 3.4 gm/dL (3.7-5.3) L 03/26/17 21:55 Globulin 2.6 gm/dL 03/26/17 21:55 Albumin/Globulin Ratio 1.3 (1.0-1.8) 03/26/17 21:55 TSH 3.67 uIU/ml (0.34-5.60) 03/26/17 21:55 Urine Source RANDOM 03/26/17 22:34 Urine Color YELLOW 03/26/17 22:34 Urine Clarity CLEAR (CLEAR) 03/26/17 22:34 Urine pH 5.5 (4.6 - 8.0) 03/26/17 22:34 Ur Specific [place] 1.025 (1.005-1.030) 03/26/17 22:34 Urine Protein NEGATIVE mg/dL (NEGATIVE) 03/26/17 22:34 Urine Glucose (UA) NEGATIVE mg/dL (NEGATIVE) 03/26/17 22:34 Urine Ketones NEGATIVE mg/dL (NEGATIVE) 03/26/17 22:34 Urine Blood NEGATIVE (NEGATIVE) 03/26/17 22:34 Urine Nitrate NEGATIVE (NEGATIVE) 03/26/17 22:34 Urine Bilirubin NEGATIVE (NEGATIVE) 03/26/17 22:34 Urine Urobilinogen 0.2 E.U./dL (0.2 - 1.0) 03/26/17 22:34 Ur Leukocyte Esterase NEGATIVE (NEGATIVE) 03/26/17 22:34 Urine RBC 0-2 /hpf (0-5) 03/26/17 22:34 Urine WBC 0-2 /hpf (0-5) 03/26/17 22:34 Ur Epithelial Cells FEW /lpf (FEW) 03/26/17 22:34 Urine Bacteria FEW /hpf (NONE SEEN) 03/26/17 22:34 Valproic Acid 43.5 ug/mL (50.0-100.0) L 03/29/17 07:30 RPR NONREACTIVE (NONREACTIVE) 03/26/17 21:55 - Physical Exam Vitals and I&O: Vital Signs Temp 98.0 F 04/01/17 15:08 Pulse 85 04/01/17 15:08 Resp 18 04/01/17 15:08 BP 105/77 04/01/17 15:08 Pulse Ox 97 04/01/17 15:08 Intake & Output 03/31/17 04/01/17 04/01/17 18:59 06:59 18:59 Intake Total 1200 Balance 1200 Intake: Oral 1200 Other: # Voids 4 # Bowel Movements 1 Stool Characteristics Soft Active Medications: Current Medications Acetaminophen (Tylenol Extra Strength) 1,000 mg PO DAILY [facility] Stop: 05/26/17 08:59 Last Admin: 04/01/17 10:54 Dose: Not Given Ascorbic Acid (Vitamin C) 500 mg PO DAILY [facility] Stop: 05/26/17 08:59 Last Admin: 04/01/17 08:59 Dose: 500 mg Bisacodyl (Dulcolax 10 Mg Supp) 10 mg RC DAILY PRN PRN Reason: Constipation Stop: 05/25/17 23:30 Chlorpromazine (Thorazine) 75 mg PO Q6HR PRN; Protocol PRN Reason: Agitation Stop: 05/26/17 07:07 Clonazepam (Klonopin) 2 mg PO BID LEVY PRN Reason: Protocol Stop: 05/26/17 08:59 Last Admin: 04/01/17 08:58 Dose: 2 mg Docusate Sodium (Colace) 250 mg PO DAILY [facility] Stop: 05/26/17 08:59 Last Admin: 04/01/17 08:59 Dose: 250 mg Famotidine (Pepcid) 20 mg PO DAILY [facility] Stop: 05/26/17 08:59 Last Admin: 04/01/17 08:59 Dose: 20 mg Ferrous Sulfate (Iron) 325 mg PO DAILY [facility] Stop: 05/26/17 08:59 Last Admin: 04/01/17 08:59 Dose: 325 mg Folic Acid (Folate) 1 mg PO DAILY [facility] Stop: 05/26/17 08:59 Last Admin: 04/01/17 08:59 Dose: 1 mg Haloperidol (Haldol) 10 mg PO TID LEV[facility] PRN Reason: Protocol Stop: 05/26/17 08:59 Last Admin: 04/01/17 14:15 Dose: 10 mg Levothyroxine Sodium (Synthroid) 0.05 mg PO QDAC [facility] Stop: 05/26/17 07:29 Last Admin: 04/01/17 06:49 Dose: 0.05 mg Magnesium Hydroxide (Milk Of Magnesia) 30 ml PO PRN PRN PRN Reason: Constipation Stop: 05/25/17 23:30 Quetiapine Fumarate (Seroquel) 150 mg PO TID [facility] PRN Reason: Protocol Stop: 05/27/17 08:59 Last Admin: 04/01/17 14:15 Dose: 150 mg Valproate Sodium (Depakene) 500 mg PO 1400,2100 [facility] PRN Reason: Protocol Stop: 05/26/17 13:59 Last Admin: 04/01/17 14:15 Dose: 500 mg Valproate Sodium (Depakene) 750 mg PO DAILY [facility] PRN Reason: Protocol Stop: 05/26/17 08:59 Last Admin: 04/01/17 08:59 Dose: 750 mg Zinc Sulfate (Zinc Sulfate) 220 mg PO DAILY [facility] Stop: 05/26/17 08:59 Last Admin: 04/01/17 08:58 Dose: 220 mg Zolpidem Tartrate (Ambien) 5 mg PO HS PRN PRN Reason: Insomnia Stop: 05/26/17 00:06 Last Admin: 03/31/17 20:44 Dose: 5 mg General: No acute distress HEENT: Atraumatic, PERRLA Neck: Supple, JVD Cardiovascular: Regular rate, Normal S1, Normal S2 Lungs: Clear to auscultation Abdomen: Bowel sounds, Soft - Procedures Procedures: Procedures Procedure Code Date INDIVID PSYCHOTHERAP NEC 94.39 06/08/08 OTHER GROUP THERAPY 94.44 06/08/08 Assessment/Plan - Problem List Patient Problems: All Active Problems Anemia (Acute) D64.9 Anxiety (Acute) F41.9 EXTREME AGITATION AND LASHING OUT AT STA (Acute) Hyponatremia (Acute) E87.1 Hypothyroid (Acute) E03.9 Pseudobulbar affect (Acute) F48.2 Seizure (Acute) R56.9 - Assessment Assessment: 1.ANEMIA. 2.HYPOTHYROIDISM 3.DJD. 4.DEMENTIA. - Plan Plan: cont current treatment Nutritional Asmnt/Malnutr-PDOC - Dietary Evaluation Malnutrition Findings (Please click <Entered> for more info): Nutritional Asmnt/Malnutrition Start: 03/30/17 11: 38 Text: Status: Complete Freq: Document 03/30/17 11:38 RANDY (Rec: 03/30/17 12:03 [email or web address] ZARAGOZA- [email or web address]) Nutritional Asmnt/Malnutrition Patient General Information Nutritional Screening Moderate Risk Diagnosis Psychosis Pertinent Medical Hx/Surgical Hx Hypothyroidism, dementia Subjective Information Patient was admitted from SNF with agitation, severe agressiveness and bizarre behavior per nursingn notes. Also per nursing notes, patient is mentally changed, behaving like a child. Unable to answer questions re: nutrition history. Current Diet Order/ Nutrition Support Regular Patient / S.O Can Pertinent Medications vitamin C, dulcolax, colace, pepcid, iron, folate, synthroid, MOM, zinc sulfate Pertinent Labs (03/26) Na 132, Albumin 3.4 Nutritional Hx/Data Height 1.68 m Height (Calculated Centimeters) 167.6 Current Weight (lbs) 72.575 kg Weight (Calculated Kilograms) 72.6 Weight (Calculated Grams) 24738.8 [place] Body Weight 130 % [place] Body Weight 123 Body Mass Index (BMI) 25.8 Recent Weight Change No Weight Status Overweight GI Symptoms GI Symptoms None Last BM None noted Difficult in: None Food Allergies No Cultural/Ethnic/Amish Belief None indicated Usual diet at home Unknown Skin Integrity/Comment: Faisal 19, intact Current %PO Good (75-100%) Estimated Nutritional Goals BEE in Kcals: Using Current wt Kcals Calculated 1354-1735 kcal/day (25-30 kcal /kg) Protein: Using Current wt Protein g/kg: .8-1 gm/kg Protein Calculated 60-70 gm/day Fluid: ml 5218-9943 ml/day (1 ml/kcal) Nutritional Problem 1. Problem Problem Altered nutrition related labs Etiology related to electrolyte imbalance aeb Signs/Symptoms: Na 132 Intervention/Recommendation Comments 1. Continue regular diet as tolerated by patient. 2. If Na remains low, consider fluid restriction per MD. Expected Outcomes/Goals Expected Outcomes/Goals Oral intake to remain adequate (>75% of meals), weight stable, Na normalizes.
--- NOTE | 2017-04-02 00:28 | Progress Notes ---
DATE: SUBJECTIVE: The patient was seen and evaluated. The patient's chart reviewed. Dr. Tello covering for Dr. Gomez. The patient has been disruptive, intrusive, and still needing a lot of redirections. Today, on [id number] evaluation, the patient perseverates about wanting [employer], very distraught, confused, and disoriented during the interview, ruminating , unable to give much more information beyond that. EXAMINATION: Disorganized, disheveled, malodorous, poor insight, judgment, and impulse control. Overnight nursing staff reported the patient mostly has been intermittently yelling, screaming, disorganized, and not giving much information beyond that. ASSESSMENT AND PLAN: The patient is a 56-year-old female who continues to present disorganized, tolerating the Thorazine as needed and the Haldol at 10 mg t.i.d. Due to the patient still active psychotic behavior and disorganized state, she is unable to formulate a safe plan. We will continue with primary psychiatric treatment plan and goal, which includes Haldol 10 mg p.o. t.i.d., Depakote at 1750 a day, and also Seroquel at 150 t.i.d. No side effects reported by the patient and continues to be very disorganized despite higher levels of medications. JOB# [id number]
[2017-04-02] MEDS: Levothyroxine 0.05 Mg Tab PO SCH (06:54)
--- NOTE | 2017-04-02 07:26 | Progress Notes ---
DATE: SUBJECTIVE: Chart reviewed and the patient interviewed. Also discussed the patient's condition with the staff and reviewed records and labs. The patient still has episodes of yelling and screaming constantly. The patient also is still demanding. She also has disorganized thoughts and unable to express herself appropriately. She also is restless and in irritable and angry mood. The patient also is still suspicious and is still paranoid. Otherwise, the patient is compliant with taking her medications, with no side effects of medications. During interview, the patient is suspicious and is paranoid. She also is having disorganized thoughts. The patient also is agitated and is unable to carry on coherent conversation. ASSESSMENT: The patient is still psychotic and is still agitated. TREATMENT PLAN: We will continue monitoring her behavior and her condition closely. Also, Depakote blood level that was done on 03/29/2017 came back to be 34.5. We will increase Seroquel to 200 mg 3 times a day. Also, we will get Depakote blood level and we will continue to follow up. Estimated length of stay 2-4 days. REASON TO CONTINUE HOSPITAL STAY: The patient is still irritable and agitated and still can be dangerous to others. LABORATORY DATA: Depakote blood level that was done on 03/29/2017, came back to be ____ and we will repeat Depakote level and we will continue to follow up. JOB# [id number]
[2017-04-02] MEDS: Multivitamin w/ Minerals Tab PO SCH (09:27)
[2017-04-02] MEDS: Acetaminophen 500 MG TAB PO SCH (09:27)
[2017-04-02] MEDS: Ferrous Sulfate 325 MG TAB PO SCH (09:28)
--- NOTE | 2017-04-02 15:39 | Internal Medicine Prog Note ---
Internal Medicine Subjective - Subjective Service Date: 04/02/17 Patient seen and examined:: with staff (SHE EATING WELL AND TAKING MEDICATION) Patient is:: awake, in bed, confused Per staff patient has:: no adverse event Internal Medicine Objective - Results Result Diagrams: 03/26/17 21:55 03/26/17 21:55 Recent Labs: Laboratory Last Values WBC 8.2 Th/cmm (4.8-10.8) 03/26/17 21:55 RBC 3.98 Mil/cmm (3.80-5.10) 03/26/17 21:55 Hgb 11.3 gm/dL (12-16) L 03/26/17 21:55 Hct 33.3 % (41.0-60) L 03/26/17 21:55 MCV 83.6 fl (81-100) 03/26/17 21:55 MCH 28.5 pg (27.0-31.0) 03/26/17 21:55 MCHC Differential 34.1 pg (28.0-36.0) 03/26/17 21:55 RDW 16.8 % (11.5-20.0) 03/26/17 21:55 Plt Count 214 Th/cmm (150-400) 03/26/17 21:55 MPV 8.3 fl 03/26/17 21:55 Neutrophils % 42.3 % (40.0-80.0) 03/26/17 21:55 Lymphocytes % 43.9 % (20.0-50.0) 03/26/17 21:55 Monocytes % 11.5 % (2.0-10.0) H 03/26/17 21:55 Eosinophils % 2.0 % (0.0-5.0) 03/26/17 21:55 Basophils % 0.3 % (0.0-2.0) 03/26/17 21:55 Sodium 132 mEq/L (136-145) L 03/26/17 21:55 Potassium 4.1 mEq/L (3.5-5.1) 03/26/17 21:55 Chloride 96 mEq/L (98-107) L 03/26/17 21:55 Carbon Dioxide 32.5 mEq/L (21.0-31.0) H 03/26/17 21:55 Anion Gap 7.6 (7.0-16.0) 03/26/17 21:55 BUN 18 mg/dL (7-25) 03/26/17 21:55 Creatinine 0.8 mg/dL (0.6-1.2) 03/26/17 21:55 Est GFR ( Amer) > 60.0 ml/min (>90) 03/26/17 21:55 Est GFR (Non-Af Amer) > 60.0 ml/min 03/26/17 21:55 BUN/Creatinine Ratio 22.5 03/26/17 21:55 Glucose 96 mg/dL (70-105) 03/26/17 21:55 POC Glucose 95 MG/DL (70 - 105) 04/02/17 06:51 Calcium 9.4 mg/dL (8.6-10.3) 03/26/17 21:55 Total Bilirubin 0.2 mg/dL (0.3-1.0) L 03/26/17 21:55 AST 9 U/L (13-39) L 03/26/17 21:55 ALT 6 U/L (7-52) L 03/26/17 21:55 Alkaline Phosphatase 87 U/L (34-104) 03/26/17 21:55 Total Protein 6.0 gm/dL (6.0-8.3) 03/26/17 21:55 Albumin 3.4 gm/dL (3.7-5.3) L 03/26/17 21:55 Globulin 2.6 gm/dL 03/26/17 21:55 Albumin/Globulin Ratio 1.3 (1.0-1.8) 03/26/17 21:55 TSH 3.67 uIU/ml (0.34-5.60) 03/26/17 21:55 Urine Source RANDOM 03/26/17 22:34 Urine Color YELLOW 03/26/17 22:34 Urine Clarity CLEAR (CLEAR) 03/26/17 22:34 Urine pH 5.5 (4.6 - 8.0) 03/26/17 22:34 Ur Specific [place] 1.025 (1.005-1.030) 03/26/17 22:34 Urine Protein NEGATIVE mg/dL (NEGATIVE) 03/26/17 22:34 Urine Glucose (UA) NEGATIVE mg/dL (NEGATIVE) 03/26/17 22:34 Urine Ketones NEGATIVE mg/dL (NEGATIVE) 03/26/17 22:34 Urine Blood NEGATIVE (NEGATIVE) 03/26/17 22:34 Urine Nitrate NEGATIVE (NEGATIVE) 03/26/17 22:34 Urine Bilirubin NEGATIVE (NEGATIVE) 03/26/17 22:34 Urine Urobilinogen 0.2 E.U./dL (0.2 - 1.0) 03/26/17 22:34 Ur Leukocyte Esterase NEGATIVE (NEGATIVE) 03/26/17 22:34 Urine RBC 0-2 /hpf (0-5) 03/26/17 22:34 Urine WBC 0-2 /hpf (0-5) 03/26/17 22:34 Ur Epithelial Cells FEW /lpf (FEW) 03/26/17 22:34 Urine Bacteria FEW /hpf (NONE SEEN) 03/26/17 22:34 Valproic Acid 62.1 ug/mL (50.0-100.0) 04/02/17 11:05 RPR NONREACTIVE (NONREACTIVE) 03/26/17 21:55 - Physical Exam Vitals and I&O: Vital Signs Temp 97.4 F 04/02/17 07:04 Pulse 80 04/02/17 07:04 Resp 19 04/02/17 11:29 BP 101/72 04/02/17 07:04 Pulse Ox 97 04/02/17 07:04 Intake & Output 04/01/17 04/02/17 04/02/17 18:59 06:59 18:59 Intake Total 120 240 Balance 120 240 Intake: Oral 120 240 Other: # Voids 1 2 Stool Characteristics Soft Active Medications: Current Medications Acetaminophen (Tylenol Extra Strength) 1,000 mg PO DAILY [facility] Stop: 05/26/17 08:59 Last Admin: 04/02/17 09:27 Dose: 1,000 mg Ascorbic Acid (Vitamin C) 500 mg PO DAILY [facility] Stop: 05/26/17 08:59 Last Admin: 04/02/17 09:28 Dose: 500 mg Bisacodyl (Dulcolax 10 Mg Supp) 10 mg RC DAILY PRN PRN Reason: Constipation Stop: 05/25/17 23:30 Chlorpromazine (Thorazine) 75 mg PO Q6HR PRN; Protocol PRN Reason: Agitation Stop: 05/26/17 07:07 Last Admin: 04/01/17 23:15 Dose: 75 mg Clonazepam (Klonopin) 2 mg PO BID [facility] PRN Reason: Protocol Stop: 05/26/17 08:59 Last Admin: 04/02/17 09:28 Dose: 2 mg Docusate Sodium (Colace) 250 mg PO DAILY [facility] Stop: 05/26/17 08:59 Last Admin: 04/02/17 09:27 Dose: 250 mg Famotidine (Pepcid) 20 mg PO DAILY [facility] Stop: 05/26/17 08:59 Last Admin: 04/02/17 09:27 Dose: 20 mg Ferrous Sulfate (Iron) 325 mg PO DAILY [facility] Stop: 05/26/17 08:59 Last Admin: 04/02/17 09:28 Dose: 325 mg Folic Acid (Folate) 1 mg PO DAILY [facility] Stop: 05/26/17 08:59 Last Admin: 04/02/17 09:27 Dose: 1 mg Haloperidol (Haldol) 10 mg PO TID [facility] PRN Reason: Protocol Stop: 05/26/17 08:59 Last Admin: 04/02/17 14:48 Dose: 10 mg Levothyroxine Sodium (Synthroid) 0.05 mg PO QDAC [facility] Stop: 05/26/17 07:29 Last Admin: 04/02/17 06:54 Dose: 0.05 mg Magnesium Hydroxide (Milk Of Magnesia) 30 ml PO PRN PRN PRN Reason: Constipation Stop: 05/25/17 23:30 Quetiapine Fumarate (Seroquel) 200 mg PO TID [facility] PRN Reason: Protocol Stop: 05/27/17 08:59 Last Admin: 04/02/17 14:48 Dose: 200 mg Valproate Sodium (Depakene) 500 mg PO 1400,2100 [facility] PRN Reason: Protocol Stop: 05/26/17 13:59 Last Admin: 04/02/17 14:47 Dose: 500 mg Valproate Sodium (Depakene) 750 mg PO DAILY [facility] PRN Reason: Protocol Stop: 05/26/17 08:59 Last Admin: 04/02/17 09:27 Dose: 750 mg Zinc Sulfate (Zinc Sulfate) 220 mg PO DAILY [facility] Stop: 05/26/17 08:59 Last Admin: 04/02/17 09:27 Dose: 220 mg Zolpidem Tartrate (Ambien) 5 mg PO HS PRN PRN Reason: Insomnia Stop: 05/26/17 00:06 Last Admin: 04/02/17 00:04 Dose: 5 mg General: demented HEENT: NC/AT, PERRLA, EOMI, anicteric sclerae, throat clear Neck: Supple, No JVD, No thyromegaly, +2 carotid pulse wo bruit, No LAD Lungs: CTAB Cardiovascular: Normal S1, Normal S2, without murmur Abdomen: soft, non-tender, non-distended Extremities: clear Neurological: no change - Procedures Procedures: Procedures Procedure Code Date INDIVID PSYCHOTHERAP NEC 94.39 06/08/08 OTHER GROUP THERAPY 94.44 06/08/08 Internal Medicine Assmt/Plan - Assessment Assessment: 1.ANEMIA. 2.HYPOTHYROIDISM 3.DJD. 4.DEMENTIA. - Plan Plan: CONTINUE ON CURRENT MEDICATION AND DIET. Nutritional Asmnt/Malnutr-PDOC - Dietary Evaluation Malnutrition Findings (Please click <Entered> for more info): Nutritional Asmnt/Malnutrition Start: 03/30/17 11: 38 Text: Status: Complete Freq: Document 03/30/17 11:38 RANDY (Rec: 03/30/17 12:03 MMNEEL ZARAGOZA- [email or web address]) Nutritional Asmnt/Malnutrition Patient General Information Nutritional Screening Moderate Risk Diagnosis Psychosis Pertinent Medical Hx/Surgical Hx Hypothyroidism, dementia Subjective Information Patient was admitted from SNF with agitation, severe agressiveness and bizarre behavior per nursingn notes. Also per nursing notes, patient is mentally changed, behaving like a child. Unable to answer questions re: nutrition history. Current Diet Order/ Nutrition Support Regular Patient / S.O Can Pertinent Medications vitamin C, dulcolax, colace, pepcid, iron, folate, synthroid, MOM, zinc sulfate Pertinent Labs (03/26) Na 132, Albumin 3.4 Nutritional Hx/Data Height 1.68 m Height (Calculated Centimeters) 167.6 Current Weight (lbs) 72.575 kg Weight (Calculated Kilograms) 72.6 Weight (Calculated Grams) 93482.8 [place] Body Weight 130 % [place] Body Weight 123 Body Mass Index (BMI) 25.8 Recent Weight Change No Weight Status Overweight GI Symptoms GI Symptoms None Last BM None noted Difficult in: None Food Allergies No Cultural/Ethnic/Bahai Belief None indicated Usual diet at home Unknown Skin Integrity/Comment: Faisal 19, intact Current %PO Good (75-100%) Estimated Nutritional Goals BEE in Kcals: Using Current wt Kcals Calculated 1625-3139 kcal/day (25-30 kcal /kg) Protein: Using Current wt Protein g/kg: .8-1 gm/kg Protein Calculated 60-70 gm/day Fluid: ml 3731-4613 ml/day (1 ml/kcal) Nutritional Problem 1. Problem Problem Altered nutrition related labs Etiology related to electrolyte imbalance aeb Signs/Symptoms: Na 132 Intervention/Recommendation Comments 1. Continue regular diet as tolerated by patient. 2. If Na remains low, consider fluid restriction per MD. Expected Outcomes/Goals Expected Outcomes/Goals Oral intake to remain adequate (>75% of meals), weight stable, Na normalizes.
--- NOTE | 2017-04-02 16:32 | Internal Medicine Prog Note ---
Internal Medicine Subjective - Subjective Patient is:: awake, in bed, confused Per staff patient has:: no adverse event Internal Medicine Objective - Results Result Diagrams: 03/26/17 21:55 03/26/17 21:55 Recent Labs: Laboratory Last Values WBC 8.2 Th/cmm (4.8-10.8) 03/26/17 21:55 RBC 3.98 Mil/cmm (3.80-5.10) 03/26/17 21:55 Hgb 11.3 gm/dL (12-16) L 03/26/17 21:55 Hct 33.3 % (41.0-60) L 03/26/17 21:55 MCV 83.6 fl (81-100) 03/26/17 21:55 MCH 28.5 pg (27.0-31.0) 03/26/17 21:55 MCHC Differential 34.1 pg (28.0-36.0) 03/26/17 21:55 RDW 16.8 % (11.5-20.0) 03/26/17 21:55 Plt Count 214 Th/cmm (150-400) 03/26/17 21:55 MPV 8.3 fl 03/26/17 21:55 Neutrophils % 42.3 % (40.0-80.0) 03/26/17 21:55 Lymphocytes % 43.9 % (20.0-50.0) 03/26/17 21:55 Monocytes % 11.5 % (2.0-10.0) H 03/26/17 21:55 Eosinophils % 2.0 % (0.0-5.0) 03/26/17 21:55 Basophils % 0.3 % (0.0-2.0) 03/26/17 21:55 Sodium 132 mEq/L (136-145) L 03/26/17 21:55 Potassium 4.1 mEq/L (3.5-5.1) 03/26/17 21:55 Chloride 96 mEq/L (98-107) L 03/26/17 21:55 Carbon Dioxide 32.5 mEq/L (21.0-31.0) H 03/26/17 21:55 Anion Gap 7.6 (7.0-16.0) 03/26/17 21:55 BUN 18 mg/dL (7-25) 03/26/17 21:55 Creatinine 0.8 mg/dL (0.6-1.2) 03/26/17 21:55 Est GFR ( Amer) > 60.0 ml/min (>90) 03/26/17 21:55 Est GFR (Non-Af Amer) > 60.0 ml/min 03/26/17 21:55 BUN/Creatinine Ratio 22.5 03/26/17 21:55 Glucose 96 mg/dL (70-105) 03/26/17 21:55 POC Glucose 95 MG/DL (70 - 105) 04/02/17 06:51 Calcium 9.4 mg/dL (8.6-10.3) 03/26/17 21:55 Total Bilirubin 0.2 mg/dL (0.3-1.0) L 03/26/17 21:55 AST 9 U/L (13-39) L 03/26/17 21:55 ALT 6 U/L (7-52) L 03/26/17 21:55 Alkaline Phosphatase 87 U/L (34-104) 03/26/17 21:55 Total Protein 6.0 gm/dL (6.0-8.3) 03/26/17 21:55 Albumin 3.4 gm/dL (3.7-5.3) L 03/26/17 21:55 Globulin 2.6 gm/dL 03/26/17 21:55 Albumin/Globulin Ratio 1.3 (1.0-1.8) 03/26/17 21:55 TSH 3.67 uIU/ml (0.34-5.60) 03/26/17 21:55 Urine Source RANDOM 03/26/17 22:34 Urine Color YELLOW 03/26/17 22:34 Urine Clarity CLEAR (CLEAR) 03/26/17 22:34 Urine pH 5.5 (4.6 - 8.0) 03/26/17 22:34 Ur Specific [place] 1.025 (1.005-1.030) 03/26/17 22:34 Urine Protein NEGATIVE mg/dL (NEGATIVE) 03/26/17 22:34 Urine Glucose (UA) NEGATIVE mg/dL (NEGATIVE) 03/26/17 22:34 Urine Ketones NEGATIVE mg/dL (NEGATIVE) 03/26/17 22:34 Urine Blood NEGATIVE (NEGATIVE) 03/26/17 22:34 Urine Nitrate NEGATIVE (NEGATIVE) 03/26/17 22:34 Urine Bilirubin NEGATIVE (NEGATIVE) 03/26/17 22:34 Urine Urobilinogen 0.2 E.U./dL (0.2 - 1.0) 03/26/17 22:34 Ur Leukocyte Esterase NEGATIVE (NEGATIVE) 03/26/17 22:34 Urine RBC 0-2 /hpf (0-5) 03/26/17 22:34 Urine WBC 0-2 /hpf (0-5) 03/26/17 22:34 Ur Epithelial Cells FEW /lpf (FEW) 03/26/17 22:34 Urine Bacteria FEW /hpf (NONE SEEN) 03/26/17 22:34 Valproic Acid 62.1 ug/mL (50.0-100.0) 04/02/17 11:05 RPR NONREACTIVE (NONREACTIVE) 03/26/17 21:55 - Physical Exam Vitals and I&O: Vital Signs Temp 98.2 F 04/02/17 15:38 Pulse 83 04/02/17 15:38 Resp 18 04/02/17 15:38 BP 107/65 04/02/17 15:38 Pulse Ox 94 04/02/17 15:38 Intake & Output 04/01/17 04/02/17 04/02/17 18:59 06:59 18:59 Intake Total 120 240 Balance 120 240 Intake: Oral 120 240 Other: # Voids 1 2 Stool Characteristics Soft Active Medications: Current Medications Acetaminophen (Tylenol Extra Strength) 1,000 mg PO DAILY [facility] Stop: 05/26/17 08:59 Last Admin: 04/02/17 09:27 Dose: 1,000 mg Ascorbic Acid (Vitamin C) 500 mg PO DAILY [facility] Stop: 05/26/17 08:59 Last Admin: 04/02/17 09:28 Dose: 500 mg Bisacodyl (Dulcolax 10 Mg Supp) 10 mg RC DAILY PRN PRN Reason: Constipation Stop: 05/25/17 23:30 Chlorpromazine (Thorazine) 75 mg PO Q6HR PRN; Protocol PRN Reason: Agitation Stop: 05/26/17 07:07 Last Admin: 04/01/17 23:15 Dose: 75 mg Clonazepam (Klonopin) 2 mg PO BID [facility] PRN Reason: Protocol Stop: 05/26/17 08:59 Last Admin: 04/02/17 09:28 Dose: 2 mg Docusate Sodium (Colace) 250 mg PO DAILY [facility] Stop: 05/26/17 08:59 Last Admin: 04/02/17 09:27 Dose: 250 mg Famotidine (Pepcid) 20 mg PO DAILY [facility] Stop: 05/26/17 08:59 Last Admin: 04/02/17 09:27 Dose: 20 mg Ferrous Sulfate (Iron) 325 mg PO DAILY [facility] Stop: 05/26/17 08:59 Last Admin: 04/02/17 09:28 Dose: 325 mg Folic Acid (Folate) 1 mg PO DAILY [facility] Stop: 05/26/17 08:59 Last Admin: 04/02/17 09:27 Dose: 1 mg Haloperidol (Haldol) 10 mg PO TID [facility] PRN Reason: Protocol Stop: 05/26/17 08:59 Last Admin: 04/02/17 14:48 Dose: 10 mg Levothyroxine Sodium (Synthroid) 0.05 mg PO QDAC [facility] Stop: 05/26/17 07:29 Last Admin: 04/02/17 06:54 Dose: 0.05 mg Magnesium Hydroxide (Milk Of Magnesia) 30 ml PO PRN PRN PRN Reason: Constipation Stop: 05/25/17 23:30 Quetiapine Fumarate (Seroquel) 200 mg PO TID [facility] PRN Reason: Protocol Stop: 05/27/17 08:59 Last Admin: 04/02/17 14:48 Dose: 200 mg Valproate Sodium (Depakene) 500 mg PO 1400,2100 [facility] PRN Reason: Protocol Stop: 05/26/17 13:59 Last Admin: 04/02/17 14:47 Dose: 500 mg Valproate Sodium (Depakene) 750 mg PO DAILY [facility] PRN Reason: Protocol Stop: 05/26/17 08:59 Last Admin: 04/02/17 09:27 Dose: 750 mg Zinc Sulfate (Zinc Sulfate) 220 mg PO DAILY [facility] Stop: 05/26/17 08:59 Last Admin: 04/02/17 09:27 Dose: 220 mg Zolpidem Tartrate (Ambien) 5 mg PO HS PRN PRN Reason: Insomnia Stop: 05/26/17 00:06 Last Admin: 04/02/17 00:04 Dose: 5 mg General: demented HEENT: NC/AT, PERRLA, EOMI, anicteric sclerae, throat clear Neck: Supple, No JVD, No thyromegaly, +2 carotid pulse wo bruit, No LAD Lungs: CTAB Cardiovascular: Normal S1, Normal S2, without murmur Abdomen: soft, non-tender, non-distended Extremities: clear Neurological: no change - Procedures Procedures: Procedures Procedure Code Date INDIVID PSYCHOTHERAP NEC 94.39 06/08/08 OTHER GROUP THERAPY 94.44 06/08/08 Internal Medicine Assmt/Plan - Assessment Assessment: 1.ANEMIA. 2.HYPOTHYROIDISM 3.DJD. 4.DEMENTIA. - Plan Plan: CONTINUE ON CURRENT MEDICATION AND DIET. Nutritional Asmnt/Malnutr-PDOC - Dietary Evaluation Malnutrition Findings (Please click <Entered> for more info): Nutritional Asmnt/Malnutrition Start: 03/30/17 11: 38 Text: Status: Complete Freq: Document 03/30/17 11:38 RANDY (Rec: 03/30/17 12:03 RANDY ZARAGOZA [email or web address]) Nutritional Asmnt/Malnutrition Patient General Information Nutritional Screening Moderate Risk Diagnosis Psychosis Pertinent Medical Hx/Surgical Hx Hypothyroidism, dementia Subjective Information Patient was admitted from SNF with agitation, severe agressiveness and bizarre behavior per nursingn notes. Also per nursing notes, patient is mentally changed, behaving like a child. Unable to answer questions re: nutrition history. Current Diet Order/ Nutrition Support Regular Patient / S.O Can Pertinent Medications vitamin C, dulcolax, colace, pepcid, iron, folate, synthroid, MOM, zinc sulfate Pertinent Labs (03/26) Na 132, Albumin 3.4 Nutritional Hx/Data Height 1.68 m Height (Calculated Centimeters) 167.6 Current Weight (lbs) 72.575 kg Weight (Calculated Kilograms) 72.6 Weight (Calculated Grams) 49799.8 [place] Body Weight 130 % [place] Body Weight 123 Body Mass Index (BMI) 25.8 Recent Weight Change No Weight Status Overweight GI Symptoms GI Symptoms None Last BM None noted Difficult in: None Food Allergies No Cultural/Ethnic/Religion Belief None indicated Usual diet at home Unknown Skin Integrity/Comment: Faisal 19, intact Current %PO Good (75-100%) Estimated Nutritional Goals BEE in Kcals: Using Current wt Kcals Calculated 9742-5781 kcal/day (25-30 kcal /kg) Protein: Using Current wt Protein g/kg: .8-1 gm/kg Protein Calculated 60-70 gm/day Fluid: ml 8274-7987 ml/day (1 ml/kcal) Nutritional Problem 1. Problem Problem Altered nutrition related labs Etiology related to electrolyte imbalance aeb Signs/Symptoms: Na 132 Intervention/Recommendation Comments 1. Continue regular diet as tolerated by patient. 2. If Na remains low, consider fluid restriction per MD. Expected Outcomes/Goals Expected Outcomes/Goals Oral intake to remain adequate (>75% of meals), weight stable, Na normalizes.
[2017-04-03] MEDS: Levothyroxine 0.05 Mg Tab PO SCH (06:57)
--- NOTE | 2017-04-03 06:57 | Discharge Summary ---
DATE OF DISCHARGE: PSYCHIATRIC DISCHARGE SUMMARY DATE OF DISCHARGE: 04/03/2017 PATIENT'S AGE: 56. SEX: Female. PHYSICIAN: Noel Gomez M.D., M.P.H. FINAL DIAGNOSES/PRIMARY DIAGNOSES: Chronic schizoaffective disorder, bipolar type, severe, with psychotic features. REASON FOR HOSPITALIZATION: The patient was admitted to the hospital because of increased agitation and irritability in [facility] and she was having difficulty following staff directions, was yelling and screaming and . HOSPITAL COURSE: The patient continued to be severely irritable and agitated. The patient also was extremely irritable and yelling and screaming and she was not able to follow any of staff directions. The patient was given Depakote and the dose adjusted to 750 mg daily, +500 mg twice a day. Gradually, the patient's affect was brighter. Also, Seroquel was increased to 100 mg 3 times a day. The patient was less agitated and less irritable. Also, she was given Klonopin 2 mg twice a day to help with her anxiety. The patient was calmer and easier to redirect her, and the patient was discharged to [place]. Physical exam of the patient showed no major medical problems. Blood workup was basically within normal. AFTER DISCHARGE PLANS: 1. The patient discharged from the hospital and return to [facility] with plans to follow her there. 2. Depakote blood level that was done on 04/02/2017 came back 62.1, which is within therapeutic levels. [facility]# [id number]
[2017-04-03] MEDS: Acetaminophen 500 MG TAB PO SCH (09:53)
[2017-04-03] MEDS: Ferrous Sulfate 325 MG TAB PO SCH (09:53)
[2017-04-03] MEDS: Multivitamin w/ Minerals Tab PO SCH (09:53)
== END 2017-04-03 13:10 | disposition home or self-care (01) | DRG 885 ==
LOC: ER 20:42 → GERO 22:05 → UNDOADMIN 22:05 → UNDODISIN 04-03 13:10
PROVIDERS: ADMIT Psychiatry & Neurology Psychiatry; ATTEND Psychiatry & Neurology Psychiatry
DX: F25.0 Schizoaffective disorder, bipolar type (principal); F03.91 Unspecified dementia, unspecified severity, with behavioral disturbance; R13.10 Dysphagia, unspecified; D64.9 Anemia, unspecified; E03.9 Hypothyroidism, unspecified; F29 Unspecified psychosis not due to a substance or known physiological condition; K21.9 Gastro-esophageal reflux disease without esophagitis; M19.90 Unspecified osteoarthritis, unspecified site; Z88.0 Allergy status to penicillin; Z88.8 Allergy status to other drugs, medicaments and biological substances
CPT/HCPCS: 36415-UA; 80053-TC; 80164-TC; 81001-TC; 82948-90; 84443-TC; 85025-TC; 86592-TC; 93005; J1200; J1630; J2060; Q0161; Z7502; Z7610

== ENCOUNTER 2017-05-17 20:17 | Inpatient (IN) | payer MEDICARE, MEDICAID ==
[2017-05-17 21:27] LABS: % BASOPHILS 0.3 % (0.0-2.0); % EOSINOPHILS 1.9 % (0.0-5.0); % LYMPHOCYTES 37.9 % (20.0-50.0); % MONOCYTES 10.3 % (2.0-10.0); % NEUTROPHILS 49.6 % (40.0-80.0); EOSINOPHILE ABSOLUTE 0.1 Th/cmm (0.1-0.4); HEMATOCRIT 36.3 % (41.0-60); HEMOGLOBIN 12.3 gm/dL (12-16); MEAN CELL VOLUME 85.2 fl (81-100); MEAN CORPUSCULAR HEMOGLOBIN 28.8 pg (27.0-31.0); MEAN CORPUSCULAR HGB CONC 33.9 pg (28.0-36.0); MEAN PLATELET VOLUME 7.9 fl; MONOCYTE ABSOLUTE 0.8 Th/cmm (0.3-1.0); NEUTROPHILE ABSOLUTE 3.9 Th/cmm (1.8-8.0); PLATELET COUNT 266 Th/cmm (150-400); RED BLOOD COUNT 4.26 Mil/cmm (3.80-5.10); RED CELL DISTRIBUTION WIDTH 15.4 % (11.5-20.0); WHITE BLOOD COUNT 7.8 Th/cmm (4.8-10.8)
--- NOTE | 2017-05-17 21:34 | ED Physician Chart ---
ED Chief Complaint/HPI - Patient Information Date Seen:: 05/17/17 Time Seen:: 21:34 Chief Complaint:: Increased agitation Allergies:: Allergies Allergy/AdvReac Type Severity Reaction Status Date / Time Penicillins Allergy Verified 11/19/16 19:31 pregabalin Allergy Verified 11/19/16 19:31 Vitals:: Vital Signs - 8 hr 05/17/17 20:52 Temp 96.9 F HR 82 RR 16 BP 151/93 O2 Sat % 95 Family Medical History - Family Member Mother History Unknown: Yes ED Labs/Radiology/EKG Results - Lab Results Results: Laboratory Tests 05/17/17 21:21 WBC 7.8 RBC 4.26 Hgb 12.3 Hct 36.3 L MCV 85.2 MCH 28.8 MCHC Differential 33.9 RDW 15.4 Plt Count 266 D MPV 7.9 Neutrophils % 49.6 Lymphocytes % 37.9 Monocytes % 10.3 H Eosinophils % 1.9 Basophils % 0.3 ED Septic Shock - <6hrs of presentation: Vital Signs: Vital Signs - 8 hr 05/17/17 20:52 Temp 96.9 F HR 82 RR 16 BP 151/93 O2 Sat % 95 ED Discharge Plan - Patient Disposition Instructions: Psychosis
[2017-05-17 21:42] LABS: ALB/GLOB RATIO 1.3 (1.0-1.8); ALBUMIN 3.9 gm/dL (3.7-5.3); ALKALINE PHOSPHATASE 170 U/L (34-104); ANION GAP 8.8 (7.0-16.0); BILIRUBIN,TOTAL 0.2 mg/dL (0.3-1.0); BUN - UREA NITROGEN 14 mg/dL (7-25); CALCIUM SERUM 9.7 mg/dL (8.6-10.3); CARBON DIOXIDE 32.4 mEq/L (21.0-31.0); CHLORIDE 99 mEq/L (98-107); CREATININE - SERUM 0.7 mg/dL (0.6-1.2); GFR AFRICAN-AMERICAN > 60.0 ml/min (>90); GFR NON AFRICAN-AMERICAN > 60.0 ml/min; GLUCOSE 75 mg/dL (70-105); POTASSIUM SERUM 4.2 mEq/L (3.5-5.1); SGOT 13 U/L (13-39); SGPT/ALT 10 U/L (7-52); SODIUM SERUM 136 mEq/L (136-145); TOTAL PROTEIN,SERUM 6.8 gm/dL (6.0-8.3)
[2017-05-17 23:20] VITALS: BP 124/74
[2017-05-17] MEDS ORDERED: Magnesium Hydroxide (MOM) 30 mL UDC PO PRN (23:22)
[2017-05-18] MEDS ORDERED: Haloperidol Lactate 5 mg/mL 1mL Vial IM ONE (06:20)
[2017-05-18] MEDS: Levothyroxine 0.05 Mg Tab PO SCH (08:20)
[2017-05-18] MEDS: Multivitamin w/ Minerals Tab PO SCH (08:21)
[2017-05-18] MEDS: Ferrous Sulfate 325 MG TAB PO SCH (08:21)
--- NOTE | 2017-05-18 19:38 | Psychosocial Evaluation ---
DATE OF SERVICE: JUSTIFICATION FOR HOSPITALIZATION: Agitation, yelling and screaming episodes. HISTORY OF PRESENT ILLNESS: A 57-year-old female, agitated, yelling, screaming, nonsensical, talking nonsense, rambling, yelling at staff, not redirectable, requiring emergency medications this morning, a poor historian. PAST PSYCHIATRIC HISTORY: Admissions in the past. MEDICATIONS: Reviewed. SOCIAL HISTORY: Unable to assess. She is too loud and agitated and rambling and not answering any questions appropriately. She does have an address listed in [facility]. MENTAL STATUS EXAMINATION: Stated age, yelling, screaming, nonsensical, disorganized. No overt SI or HI, unclear psychotic symptoms. Poor insight and judgment. UNDER MEDICAL: Please see full H and P. PROVISIONAL DIAGNOSES: Mood, unspecified; psychosis, unspecified. It is unclear if she has a history of developmental disability. Per notes from March 2017, she was with a diagnosis of schizoaffective disorder. ESTIMATED LENGTH OF STAY: 7-10 days. ASSESSMENT: The patient requiring inpatient hospitalization, bizarre, psychotic, loud, aggressive, unruly. PLAN: We will continue to monitor. The patient requiring emergency medications this morning. CONDITIONS FOR DISCHARGE: Improved mood, improved affect, cessation of any SI, better control of her yelling and screaming and agitation. [facility]# [id number]
--- NOTE | 2017-05-18 20:56 | History & Physical ---
ADMIT DATE: 05/17/2017 HISTORY OF PRESENT ILLNESS: The patient is a 57-year-old female with long history of hypothyroidism, dementia, and psychosis; admitted to [facility] under Dr. Hamilton's service for evaluation and treatment. The patient is a poor historian. No fever, no chills, no dysuria or hematuria. PAST MEDICAL HISTORY: Significant for hypothyroidism, degenerative joint disease, dementia, and psychosis. PAST SURGICAL HISTORY: No recent surgery. ALLERGIES: PENICILLIN and PREGABALIN. MEDICATIONS: Follow admission reconciliation. SOCIAL HISTORY: No smoking, no alcohol, no drugs. FAMILY HISTORY: Noncontributory. REVIEW OF SYSTEMS: IMMUNOSYSTEM: No history of chronic renal disorder. CARDIOVASCULAR SYSTEM: No coronary artery disease. ENDOCRINE SYSTEM: She has history of hypothyroidism. GASTROINTESTINAL SYSTEM: No upper or lower gastrointestinal bleed. NEUROLOGICAL: She has history of psychosis, dementia. SKELETOMUSCULAR SYSTEM: She has degenerative joint disease. HEMATOLOGIC SYSTEM: No bleeding tendencies. RESPIRATORY SYSTEM: No asthma. GENITOURINARY SYSTEM: No dysuria or hematuria. PHYSICAL EXAMINATION: GENERAL: She is awake, not coherent. VITAL SIGNS: Temperature 98.2, heart rate 91, and blood pressure 102/54. HEENT: Normocephalic. Pupils reacting equal to light and accommodation. Sclerae clear. NECK: Supple. Negative for lymphadenopathy, JVD, or bruit. CHEST: Air bilateral normal. No rhonchi or wheezing. HEART: S1, S2 normal. No gallop rhythm. ABDOMEN: Soft, bowel sounds positive. EXTREMITIES: No edema. NEUROLOGIC: She is awake, not coherent. No focal motor or sensory deficit. LABORATORY DATA: White blood 7.8, hemoglobin 12.3, hematocrit 36.3, and platelet is 266. Sodium 136, potassium 4.2, BUN 14, and creatinine 0.7. ASSESSMENT: 1. Hypothyroidism. 2. Degenerative joint disease. 3. Dementia. 4. Psychosis. The patient was admitted to the hospital under Dr. Hamilton's service. Medical problem to be addressed during hospitalization is psychosis. Medical problems addressed at discharge, hypothyroidism, degenerative joint disease, and dementia. The patient is medically stable for activity. Thank you Dr. Hamilton for asking me to see your patient. JOB# [id number]
[2017-05-18] MEDS ORDERED: Non-Formulary Item 1 EA (Melatonin [Melatonin] 3 MG) PO SCH (21:00)
[2017-05-19] MEDS ORDERED: Haloperidol Lactate 5 mg/mL 1mL Vial IM ONE (06:08)
[2017-05-19] MEDS ORDERED: Haloperidol Lactate 5 mg/mL 1mL Vial ONE (06:13)
--- NOTE | 2017-05-19 07:41 | Progress Notes ---
DATE: SUBJECTIVE: The patient seen, chart reviewed, discussed with staff. The patient is still yelling, screaming, agitated, demanding coffee ,banging. She is highly unruly, disrupting the milieu, tangential on exam highly difficult to redirect. MEDICATIONS: Reviewed. ASSESSMENT: The patient requiring emergency medications this morning. She remains unruly, quite agitated, loud, disruptive, yelling at staff. We will increase Seroquel. The patient did require Haldol cocktail today given her behaviors. [facility]# [id number]
[2017-05-19] MEDS: Levothyroxine 0.05 Mg Tab PO SCH (08:08)
[2017-05-19] MEDS: Multivitamin w/ Minerals Tab PO SCH (08:08)
[2017-05-19] MEDS: Ferrous Sulfate 325 MG TAB PO SCH (08:09)
--- NOTE | 2017-05-19 19:42 | Internal Medicine Prog Note ---
Internal Medicine Subjective - Subjective Service Date: 05/19/17 Patient seen and examined:: with staff Patient is:: verbal, in bed, talking Per staff patient has:: no adverse event Internal Medicine Objective - Results Result Diagrams: 05/17/17 21:21 05/17/17 21:21 Recent Labs: Laboratory Last Values WBC 7.8 Th/cmm (4.8-10.8) 05/17/17 21:21 RBC 4.26 Mil/cmm (3.80-5.10) 05/17/17 21:21 Hgb 12.3 gm/dL (12-16) 05/17/17 21:21 Hct 36.3 % (41.0-60) L 05/17/17 21:21 MCV 85.2 fl (81-100) 05/17/17 21:21 MCH 28.8 pg (27.0-31.0) 05/17/17 21: MCHC Differential 33.9 pg (28.0-36.0) 05/17/17 21:21 RDW 15.4 % (11.5-20.0) 05/17/17 21:21 Plt Count 266 Th/cmm (150-400) D 05/17/17 21:21 MPV 7.9 fl 05/17/17 21:21 Neutrophils % 49.6 % (40.0-80.0) 05/17/17 21:21 Lymphocytes % 37.9 % (20.0-50.0) 05/17/17 21:21 Monocytes % 10.3 % (2.0-10.0) H 05/17/17 21:21 Eosinophils % 1.9 % (0.0-5.0) 05/17/17 21:21 Basophils % 0.3 % (0.0-2.0) 05/17/17 21:21 Sodium 136 mEq/L (136-145) 05/17/17 21:21 Potassium 4.2 mEq/L (3.5-5.1) 05/17/17 21:21 Chloride 99 mEq/L (98-107) 05/17/17 21:21 Carbon Dioxide 32.4 mEq/L (21.0-31.0) H 05/17/17 21:21 Anion Gap 8.8 (7.0-16.0) 05/17/17 21:21 BUN 14 mg/dL (7-25) 05/17/17 21:21 Creatinine 0.7 mg/dL (0.6-1.2) 05/17/17 21:21 Est GFR ( Amer) > 60.0 ml/min (>90) 05/17/17 21:21 Est GFR (Non-Af Amer) > 60.0 ml/min 05/17/17 21:21 BUN/Creatinine Ratio 20.0 05/17/17 21:21 Glucose 75 mg/dL (70-105) 05/17/17 21:21 Calcium 9.7 mg/dL (8.6-10.3) 05/17/17 21:21 Total Bilirubin 0.2 mg/dL (0.3-1.0) L 05/17/17 21:21 AST 13 U/L (13-39) 05/17/17 21:21 ALT 10 U/L (7-52) 05/17/17 21:21 Alkaline Phosphatase 170 U/L (34-104) H 05/17/17 21:21 Total Protein 6.8 gm/dL (6.0-8.3) 05/17/17 21:21 Albumin 3.9 gm/dL (3.7-5.3) 05/17/17 21:21 Globulin 2.9 gm/dL 05/17/17 21:21 Albumin/Globulin Ratio 1.3 (1.0-1.8) 05/17/17 21:21 TSH 5.60 uIU/ml (0.34-5.60) 05/17/17 21:21 Valproic Acid 12.1 ug/mL (50.0-100.0) L 05/17/17 21:21 - Physical Exam Vitals and I&O: Vital Signs Temp 98.0 F 05/19/17 16:37 Pulse 86 05/19/17 16:37 Resp 20 05/19/17 16:37 BP 124/65 05/19/17 16:37 Pulse Ox 97 05/19/17 16:37 Intake & Output 05/19/17 05/19/17 05/20/17 06:59 18:59 06:59 Intake Total 120 900 Balance 120 900 Intake: Oral 120 900 Other: # Voids 3 3 # Bowel Movements 0 Active Medications: Current Medications Acetaminophen (Tylenol) 650 mg PO Q4HR PRN PRN Reason: Pain or Fever >101 Stop: 07/16/17 23:21 Clonazepam (Klonopin) 2 mg PO BID [facility] PRN Reason: Protocol Stop: 07/17/17 08:59 Last Admin: 05/19/17 16:52 Dose: 2 mg Docusate Sodium (Colace) 100 mg PO BID [facility] Stop: 07/17/17 08:59 Last Admin: 05/19/17 16:53 Dose: 100 mg Famotidine (Pepcid) 20 mg PO DAILY [facility] Stop: 07/17/17 08:59 Last Admin: 05/19/17 08:08 Dose: 20 mg Ferrous Sulfate (Iron) 325 mg PO DAILY [facility] Stop: 07/17/17 08:59 Last Admin: 05/19/17 08:09 Dose: 325 mg Folic Acid (Folate) 1 mg PO DAILY [facility] Stop: 07/17/17 08:59 Last Admin: 05/19/17 08:07 Dose: 1 mg Haloperidol (Haldol) 10 mg PO TID [facility] PRN Reason: Protocol Stop: 07/17/17 08:59 Last Admin: 05/19/17 13:00 Dose: 10 mg Levothyroxine Sodium (Synthroid) 0.05 mg PO QDAC [facility] Stop: 07/17/17 07:29 Last Admin: 05/19/17 08:08 Dose: 0.05 mg Magnesium Hydroxide (Milk Of Magnesia) 30 ml PO DAILY PRN PRN Reason: Constipation Stop: 07/16/17 23:21 Quetiapine Fumarate (Seroquel) 400 mg PO BID [facility] PRN Reason: Protocol Stop: 07/17/17 08:59 Last Admin: 05/19/17 16:53 Dose: 400 mg Valproate Sodium (Depakene) 500 mg PO BID [facility] Stop: 07/17/17 08:59 Last Admin: 05/19/17 08:17 Dose: 500 mg Valproate Sodium (Depakene) 750 mg PO HS [facility] Stop: 07/17/17 20:59 Last Admin: 05/18/17 20:57 Dose: 750 mg General: weak, demented HEENT: NC/AT, PERRLA, EOMI, anicteric sclerae, throat clear Neck: Supple, No JVD, No thyromegaly, No LAD Lungs: CTAB Cardiovascular: RRR, Normal S1, Normal S2, without murmur Abdomen: soft, non-tender, non-distended Extremities: clear Neurological: no change - Procedures Procedures: Procedures Procedure Code Date INDIVID PSYCHOTHERAP NEC 94.39 06/08/08 OTHER GROUP THERAPY 94.44 06/08/08 Internal Medicine Assmt/Plan - Assessment Assessment: 1.HYPOTHYRIODISIM. 2.DJD. 3.DEMENTIA. 4.PSYCHOSIS - Plan Plan: CONTINUE ON CURRENT MEDICATION AND .
[2017-05-20] MEDS: Levothyroxine 0.05 Mg Tab PO SCH (06:32)
[2017-05-20] MEDS: Multivitamin w/ Minerals Tab PO SCH (08:18)
[2017-05-20] MEDS: Ferrous Sulfate 325 MG TAB PO SCH (08:18)
--- NOTE | 2017-05-20 21:16 | Internal Medicine Prog Note ---
Internal Medicine Subjective - Subjective Service Date: 05/20/17 Patient seen and examined:: with staff Patient is:: verbal, in bed, talking Per staff patient has:: no adverse event Internal Medicine Objective - Results Result Diagrams: 05/17/17 21:21 05/17/17 21:21 Recent Labs: Laboratory Last Values WBC 7.8 Th/cmm (4.8-10.8) 05/17/17 21:21 RBC 4.26 Mil/cmm (3.80-5.10) 05/17/17 21:21 Hgb 12.3 gm/dL (12-16) 05/17/17 21:21 Hct 36.3 % (41.0-60) L 05/17/17 21:21 MCV 85.2 fl (81-100) 05/17/17 21:21 MCH 28.8 pg (27.0-31.0) 05/17/17 21: MCHC Differential 33.9 pg (28.0-36.0) 05/17/17 21:21 RDW 15.4 % (11.5-20.0) 05/17/17 21:21 Plt Count 266 Th/cmm (150-400) D 05/17/17 21:21 MPV 7.9 fl 05/17/17 21:21 Neutrophils % 49.6 % (40.0-80.0) 05/17/17 21:21 Lymphocytes % 37.9 % (20.0-50.0) 05/17/17 21:21 Monocytes % 10.3 % (2.0-10.0) H 05/17/17 21:21 Eosinophils % 1.9 % (0.0-5.0) 05/17/17 21:21 Basophils % 0.3 % (0.0-2.0) 05/17/17 21:21 Sodium 136 mEq/L (136-145) 05/17/17 21:21 Potassium 4.2 mEq/L (3.5-5.1) 05/17/17 21:21 Chloride 99 mEq/L (98-107) 05/17/17 21:21 Carbon Dioxide 32.4 mEq/L (21.0-31.0) H 05/17/17 21:21 Anion Gap 8.8 (7.0-16.0) 05/17/17 21:21 BUN 14 mg/dL (7-25) 05/17/17 21:21 Creatinine 0.7 mg/dL (0.6-1.2) 05/17/17 21:21 Est GFR ( Amer) > 60.0 ml/min (>90) 05/17/17 21:21 Est GFR (Non-Af Amer) > 60.0 ml/min 05/17/17 21:21 BUN/Creatinine Ratio 20.0 05/17/17 21:21 Glucose 75 mg/dL (70-105) 05/17/17 21:21 Calcium 9.7 mg/dL (8.6-10.3) 05/17/17 21:21 Total Bilirubin 0.2 mg/dL (0.3-1.0) L 05/17/17 21:21 AST 13 U/L (13-39) 05/17/17 21:21 ALT 10 U/L (7-52) 05/17/17 21:21 Alkaline Phosphatase 170 U/L (34-104) H 05/17/17 21:21 Total Protein 6.8 gm/dL (6.0-8.3) 05/17/17 21:21 Albumin 3.9 gm/dL (3.7-5.3) 05/17/17 21:21 Globulin 2.9 gm/dL 05/17/17 21:21 Albumin/Globulin Ratio 1.3 (1.0-1.8) 05/17/17 21:21 TSH 5.60 uIU/ml (0.34-5.60) 05/17/17 21:21 Valproic Acid 12.1 ug/mL (50.0-100.0) L 05/17/17 21:21 - Physical Exam Vitals and I&O: Vital Signs Temp 97.3 F 05/20/17 20:21 Pulse 90 05/20/17 20:21 Resp 19 05/20/17 20:21 BP 119/53 05/20/17 20:21 Pulse Ox 95 05/20/17 20:21 Intake & Output 05/20/17 05/20/17 05/21/17 06:59 18:59 06:59 Intake Total 480 1200 240 Balance 480 1200 240 Weight (lbs) 72.575 kg Intake: Oral 480 1200 240 Other: # Voids 2 5 1 # Bowel Movements 1 1 Active Medications: Current Medications Acetaminophen (Tylenol) 650 mg PO Q4HR PRN PRN Reason: Pain or Fever >101 Stop: 07/16/17 23:21 Clonazepam (Klonopin) 2 mg PO BID [facility] PRN Reason: Protocol Stop: 07/17/17 08:59 Last Admin: 05/20/17 17:03 Dose: 1 mg Docusate Sodium (Colace) 100 mg PO BID [facility] Stop: 07/17/17 08:59 Last Admin: 05/20/17 16:17 Dose: 100 mg Famotidine (Pepcid) 20 mg PO DAILY [facility] Stop: 07/17/17 08:59 Last Admin: 05/20/17 08:18 Dose: 20 mg Ferrous Sulfate (Iron) 325 mg PO DAILY [facility] Stop: 07/17/17 08:59 Last Admin: 05/20/17 08:18 Dose: 325 mg Folic Acid (Folate) 1 mg PO DAILY [facility] Stop: 07/17/17 08:59 Last Admin: 05/20/17 08:18 Dose: 1 mg Haloperidol (Haldol) 10 mg PO TID [facility] PRN Reason: Protocol Stop: 07/17/17 08:59 Last Admin: 05/20/17 21:00 Dose: 10 mg Levothyroxine Sodium (Synthroid) 0.05 mg PO QDAC [facility] Stop: 07/17/17 07:29 Last Admin: 05/20/17 06:32 Dose: 0.05 mg Magnesium Hydroxide (Milk Of Magnesia) 30 ml PO DAILY PRN PRN Reason: Constipation Stop: 07/16/17 23:21 Quetiapine Fumarate (Seroquel) 400 mg PO BID [facility] PRN Reason: Protocol Stop: 07/17/17 08:59 Last Admin: 05/20/17 16:17 Dose: 400 mg Valproate Sodium (Depakene) 500 mg PO BID [facility] Stop: 07/17/17 08:59 Last Admin: 05/20/17 16:17 Dose: 500 mg Valproate Sodium (Depakene) 750 mg PO HS [facility] Stop: 07/17/17 20:59 Last Admin: 05/20/17 21:01 Dose: 750 mg General: weak, demented HEENT: NC/AT, PERRLA, EOMI, anicteric sclerae, throat clear Neck: Supple, No JVD, No thyromegaly, No LAD Lungs: CTAB Cardiovascular: RRR, Normal S1, Normal S2, without murmur Abdomen: soft, non-tender, non-distended Extremities: clear Neurological: no change - Procedures Procedures: Procedures Procedure Code Date INDIVID PSYCHOTHERAP NEC 94.39 06/08/08 OTHER GROUP THERAPY 94.44 06/08/08 Internal Medicine Assmt/Plan - Assessment Assessment: 1.HYPOTHYRIODISIM. 2.DJD. 3.DEMENTIA. 4.PSYCHOSIS - Plan Plan: CONTINUE ON CURRENT MEDICATION AND .
[2017-05-21] MEDS: Levothyroxine 0.05 Mg Tab PO SCH (06:53)
--- NOTE | 2017-05-21 07:40 | Progress Notes ---
DATE: 05/20/2017 The patient is still yelling, screaming, screaming for coffee, making nonsensical statements, "She ." I do not know who she is talking about or what she is talking about. The patient is still in a Ib[place] chair, highly unruly, agitates quickly, escalates quickly. Unable to be cared for at a lower level of care, even at this higher level of care. Her behavior is out of control. MEDICATIONS: Reviewed. ASSESSMENT AND PLAN: The patient continues to require bouts of medications to control behaviors. She is currently on Klonopin and Haldol and Seroquel. She may need increases. She is also on Depakote. We will check a Depakote level in the next few days. Given ongoing symptoms, she is not safe for discharge. [facility]# [id number]
[2017-05-21] MEDS: Ferrous Sulfate 325 MG TAB PO SCH (08:05)
[2017-05-21] MEDS: Multivitamin w/ Minerals Tab PO SCH (08:05)
--- NOTE | 2017-05-21 21:03 | Internal Medicine Prog Note ---
Internal Medicine Subjective - Subjective Service Date: 05/21/17 Patient seen and examined:: with staff Patient is:: verbal, in bed, talking Per staff patient has:: no adverse event Internal Medicine Objective - Results Result Diagrams: 05/17/17 21:21 05/17/17 21:21 Recent Labs: Laboratory Last Values WBC 7.8 Th/cmm (4.8-10.8) 05/17/17 21:21 RBC 4.26 Mil/cmm (3.80-5.10) 05/17/17 21:21 Hgb 12.3 gm/dL (12-16) 05/17/17 21:21 Hct 36.3 % (41.0-60) L 05/17/17 21:21 MCV 85.2 fl (81-100) 05/17/17 21:21 MCH 28.8 pg (27.0-31.0) 05/17/17 21: MCHC Differential 33.9 pg (28.0-36.0) 05/17/17 21:21 RDW 15.4 % (11.5-20.0) 05/17/17 21:21 Plt Count 266 Th/cmm (150-400) D 05/17/17 21:21 MPV 7.9 fl 05/17/17 21:21 Neutrophils % 49.6 % (40.0-80.0) 05/17/17 21:21 Lymphocytes % 37.9 % (20.0-50.0) 05/17/17 21:21 Monocytes % 10.3 % (2.0-10.0) H 05/17/17 21:21 Eosinophils % 1.9 % (0.0-5.0) 05/17/17 21:21 Basophils % 0.3 % (0.0-2.0) 05/17/17 21:21 Sodium 136 mEq/L (136-145) 05/17/17 21:21 Potassium 4.2 mEq/L (3.5-5.1) 05/17/17 21:21 Chloride 99 mEq/L (98-107) 05/17/17 21:21 Carbon Dioxide 32.4 mEq/L (21.0-31.0) H 05/17/17 21:21 Anion Gap 8.8 (7.0-16.0) 05/17/17 21:21 BUN 14 mg/dL (7-25) 05/17/17 21:21 Creatinine 0.7 mg/dL (0.6-1.2) 05/17/17 21:21 Est GFR ( Amer) > 60.0 ml/min (>90) 05/17/17 21:21 Est GFR (Non-Af Amer) > 60.0 ml/min 05/17/17 21:21 BUN/Creatinine Ratio 20.0 05/17/17 21:21 Glucose 75 mg/dL (70-105) 05/17/17 21:21 Calcium 9.7 mg/dL (8.6-10.3) 05/17/17 21:21 Total Bilirubin 0.2 mg/dL (0.3-1.0) L 05/17/17 21:21 AST 13 U/L (13-39) 05/17/17 21:21 ALT 10 U/L (7-52) 05/17/17 21:21 Alkaline Phosphatase 170 U/L (34-104) H 05/17/17 21:21 Total Protein 6.8 gm/dL (6.0-8.3) 05/17/17 21:21 Albumin 3.9 gm/dL (3.7-5.3) 05/17/17 21:21 Globulin 2.9 gm/dL 05/17/17 21:21 Albumin/Globulin Ratio 1.3 (1.0-1.8) 05/17/17 21:21 TSH 5.60 uIU/ml (0.34-5.60) 05/17/17 21:21 Valproic Acid 12.1 ug/mL (50.0-100.0) L 05/17/17 21:21 - Physical Exam Vitals and I&O: Vital Signs Temp 98.3 F 05/21/17 20:02 Pulse 97 05/21/17 20:02 Resp 20 05/21/17 20:02 BP 110/72 05/21/17 20:02 Pulse Ox 95 05/21/17 20:02 Intake & Output 05/21/17 05/21/17 05/22/17 06:59 18:59 06:59 Intake Total 240 1200 240 Balance 240 1200 240 Weight (lbs) 72.575 kg 72.575 kg Intake: Oral 240 1200 240 Other: # Voids 3 3 3 # Bowel Movements 1 0 0 Active Medications: Current Medications Acetaminophen (Tylenol) 650 mg PO Q4HR PRN PRN Reason: Pain or Fever >101 Stop: 07/16/17 23:21 Clonazepam (Klonopin) 2 mg PO BID [facility] PRN Reason: Protocol Stop: 07/17/17 08:59 Last Admin: 05/21/17 17:15 Dose: 2 mg Docusate Sodium (Colace) 100 mg PO BID [facility] Stop: 07/17/17 08:59 Last Admin: 05/21/17 17:15 Dose: 100 mg Famotidine (Pepcid) 20 mg PO DAILY [facility] Stop: 07/17/17 08:59 Last Admin: 05/21/17 08:05 Dose: 20 mg Ferrous Sulfate (Iron) 325 mg PO DAILY [facility] Stop: 07/17/17 08:59 Last Admin: 05/21/17 08:05 Dose: 325 mg Folic Acid (Folate) 1 mg PO DAILY [facility] Stop: 07/17/17 08:59 Last Admin: 05/21/17 08:05 Dose: 1 mg Haloperidol (Haldol) 10 mg PO TID [facility] PRN Reason: Protocol Stop: 07/17/17 08:59 Last Admin: 05/21/17 13:00 Dose: 10 mg Levothyroxine Sodium (Synthroid) 0.05 mg PO QDAC [facility] Stop: 07/17/17 07:29 Last Admin: 05/21/17 06:53 Dose: 0.05 mg Magnesium Hydroxide (Milk Of Magnesia) 30 ml PO DAILY PRN PRN Reason: Constipation Stop: 07/16/17 23:21 Quetiapine Fumarate (Seroquel) 400 mg PO BID [facility] PRN Reason: Protocol Stop: 07/17/17 08:59 Last Admin: 05/21/17 17:15 Dose: 400 mg Valproate Sodium (Depakene) 500 mg PO BID [facility] Stop: 07/17/17 08:59 Last Admin: 05/21/17 17:15 Dose: 500 mg Valproate Sodium (Depakene) 750 mg PO HS [facility] Stop: 07/17/17 20:59 Last Admin: 05/20/17 21:01 Dose: 750 mg General: weak, demented HEENT: NC/AT, PERRLA, EOMI, anicteric sclerae, throat clear Neck: Supple, No JVD, No thyromegaly, No LAD Lungs: CTAB Cardiovascular: RRR, Normal S1, Normal S2, without murmur Abdomen: soft, non-tender, non-distended Extremities: clear Neurological: no change - Procedures Procedures: Procedures Procedure Code Date INDIVID PSYCHOTHERAP NEC 94.39 06/08/08 OTHER GROUP THERAPY 94.44 06/08/08 Internal Medicine Assmt/Plan - Assessment Assessment: 1.HYPOTHYRIODISIM. 2.DJD. 3.DEMENTIA. 4.PSYCHOSIS - Plan Plan: CONTINUE ON CURRENT MEDICATION AND .
--- NOTE | 2017-05-22 05:56 | Progress Notes ---
DATE: 05/21/2017 SUBJECTIVE: The patient is still yelling, screaming, screaming for coffee, not making any sense, verbally accosting staff, making demands, requiring emergency medications over the past few days, unable to be cared for at a lower level of care, continues to be unruly, out of control. MEDICATIONS: Reviewed. ASSESSMENT: The patient remains symptomatic, thoughts of anger, yelling, screaming, unruly and combative behaviors, ruminative. PLAN: We will continue to monitor. We will continue to titrate and adjust her medications. [facility]# [id number]
[2017-05-22] MEDS: Levothyroxine 0.05 Mg Tab PO SCH (06:44)
[2017-05-22] MEDS: Multivitamin w/ Minerals Tab PO SCH (09:01)
[2017-05-22] MEDS: Ferrous Sulfate 325 MG TAB PO SCH (09:01)
--- NOTE | 2017-05-22 20:20 | Internal Medicine Prog Note ---
Internal Medicine Subjective - Subjective Service Date: 05/22/17 Patient seen and examined:: with staff Patient is:: verbal, in bed, talking Per staff patient has:: no adverse event Internal Medicine Objective - Results Result Diagrams: 05/17/17 21:21 05/17/17 21:21 Recent Labs: Laboratory Last Values WBC 7.8 Th/cmm (4.8-10.8) 05/17/17 21:21 RBC 4.26 Mil/cmm (3.80-5.10) 05/17/17 21:21 Hgb 12.3 gm/dL (12-16) 05/17/17 21:21 Hct 36.3 % (41.0-60) L 05/17/17 21:21 MCV 85.2 fl (81-100) 05/17/17 21:21 MCH 28.8 pg (27.0-31.0) 05/17/17 21: MCHC Differential 33.9 pg (28.0-36.0) 05/17/17 21:21 RDW 15.4 % (11.5-20.0) 05/17/17 21:21 Plt Count 266 Th/cmm (150-400) D 05/17/17 21:21 MPV 7.9 fl 05/17/17 21:21 Neutrophils % 49.6 % (40.0-80.0) 05/17/17 21:21 Lymphocytes % 37.9 % (20.0-50.0) 05/17/17 21:21 Monocytes % 10.3 % (2.0-10.0) H 05/17/17 21:21 Eosinophils % 1.9 % (0.0-5.0) 05/17/17 21:21 Basophils % 0.3 % (0.0-2.0) 05/17/17 21:21 Sodium 136 mEq/L (136-145) 05/17/17 21:21 Potassium 4.2 mEq/L (3.5-5.1) 05/17/17 21:21 Chloride 99 mEq/L (98-107) 05/17/17 21:21 Carbon Dioxide 32.4 mEq/L (21.0-31.0) H 05/17/17 21:21 Anion Gap 8.8 (7.0-16.0) 05/17/17 21:21 BUN 14 mg/dL (7-25) 05/17/17 21:21 Creatinine 0.7 mg/dL (0.6-1.2) 05/17/17 21:21 Est GFR ( Amer) > 60.0 ml/min (>90) 05/17/17 21:21 Est GFR (Non-Af Amer) > 60.0 ml/min 05/17/17 21:21 BUN/Creatinine Ratio 20.0 05/17/17 21:21 Glucose 75 mg/dL (70-105) 05/17/17 21:21 Calcium 9.7 mg/dL (8.6-10.3) 05/17/17 21:21 Total Bilirubin 0.2 mg/dL (0.3-1.0) L 05/17/17 21:21 AST 13 U/L (13-39) 05/17/17 21:21 ALT 10 U/L (7-52) 05/17/17 21:21 Alkaline Phosphatase 170 U/L (34-104) H 05/17/17 21:21 Total Protein 6.8 gm/dL (6.0-8.3) 05/17/17 21:21 Albumin 3.9 gm/dL (3.7-5.3) 05/17/17 21:21 Globulin 2.9 gm/dL 05/17/17 21:21 Albumin/Globulin Ratio 1.3 (1.0-1.8) 05/17/17 21:21 TSH 5.60 uIU/ml (0.34-5.60) 05/17/17 21:21 Valproic Acid 66.7 ug/mL (50.0-100.0) 05/22/17 07:40 - Physical Exam Vitals and I&O: Vital Signs Temp 97.6 F 05/22/17 14:00 Pulse 84 05/22/17 14:00 Resp 20 05/22/17 14:00 BP 132/72 05/22/17 14:00 Pulse Ox 97 05/22/17 14:00 Intake & Output 05/22/17 05/22/17 05/23/17 06:59 18:59 06:59 Intake Total 240 1800 Balance 240 1800 Weight (lbs) 72.575 kg Intake: Oral 240 1800 Other: # Voids 3 5 # Bowel Movements 0 0 Stool Characteristics Soft Formed Active Medications: Current Medications Acetaminophen (Tylenol) 650 mg PO Q4HR PRN PRN Reason: Pain or Fever >101 Stop: 07/16/17 23:21 Clonazepam (Klonopin) 2 mg PO BID [facility] PRN Reason: Protocol Stop: 07/17/17 08:59 Last Admin: 05/22/17 17:10 Dose: 2 mg Docusate Sodium (Colace) 100 mg PO BID [facility] Stop: 07/17/17 08:59 Last Admin: 05/22/17 17:10 Dose: 100 mg Famotidine (Pepcid) 20 mg PO DAILY [facility] Stop: 07/17/17 08:59 Last Admin: 05/22/17 09:02 Dose: 20 mg Ferrous Sulfate (Iron) 325 mg PO DAILY [facility] Stop: 07/17/17 08:59 Last Admin: 05/22/17 09:01 Dose: 325 mg Folic Acid (Folate) 1 mg PO DAILY [facility] Stop: 07/17/17 08:59 Last Admin: 05/22/17 08:59 Dose: 1 mg Haloperidol (Haldol) 10 mg PO TID [facility] PRN Reason: Protocol Stop: 07/17/17 08:59 Last Admin: 05/22/17 14:21 Dose: 10 mg Levothyroxine Sodium (Synthroid) 0.05 mg PO QDAC [facility] Stop: 07/17/17 07:29 Last Admin: 05/22/17 06:44 Dose: 0.05 mg Magnesium Hydroxide (Milk Of Magnesia) 30 ml PO DAILY PRN PRN Reason: Constipation Stop: 07/16/17 23:21 Quetiapine Fumarate (Seroquel) 400 mg PO BID [facility] PRN Reason: Protocol Stop: 07/17/17 08:59 Last Admin: 05/22/17 17:10 Dose: 400 mg Valproate Sodium (Depakene) 500 mg PO BID [facility] Stop: 07/17/17 08:59 Last Admin: 05/22/17 17:10 Dose: 500 mg Valproate Sodium (Depakene) 750 mg PO HS [facility] Stop: 07/17/17 20:59 Last Admin: 05/21/17 20:55 Dose: 750 mg General: weak, demented HEENT: NC/AT, PERRLA, EOMI, anicteric sclerae, throat clear Neck: Supple, No JVD, No thyromegaly, No LAD Lungs: CTAB Cardiovascular: RRR, Normal S1, Normal S2, without murmur Abdomen: soft, non-tender, non-distended Extremities: clear Neurological: no change - Procedures Procedures: Procedures Procedure Code Date INDIVID PSYCHOTHERAP NEC 94.39 06/08/08 OTHER GROUP THERAPY 94.44 06/08/08 Internal Medicine Assmt/Plan - Assessment Assessment: 1.HYPOTHYRIODISIM. 2.DJD. 3.DEMENTIA. 4.PSYCHOSIS - Plan Plan: CONTINUE ON CURRENT MEDICATION AND . Nutritional Asmnt/Malnutr-PDOC - Dietary Evaluation Malnutrition Findings (Please click <Entered> for more info): Nutritional Asmnt/Malnutrition Start: 05/22/17 13: 57 Text: Status: Complete Freq: Document 05/22/17 13:57 [email or web address] (Rec: 05/22/17 14:01 [email or web address]) Nutritional Asmnt/Malnutrition Patient General Information Nutritional Screening Moderate Risk Diagnosis psychosis NOS Pertinent Medical Hx/Surgical Hx hypothyroidism, dementia, psychosis Subjective Information Pt A&O x 1, not appropriate for interview. PO intake: 100% Current Diet Order/ Nutrition Support mechanical soft, ground Pertinent Medications colace, pepcid, iron, folate, synthroid, MOM, Pertinent Labs (05/17) alk phos: 170 Nutritional Hx/Data Height 1.68 m Height (Calculated Centimeters) 167.6 Current Weight (lbs) 72.575 kg Weight (Calculated Kilograms) 72.6 Weight (Calculated Grams) 65544.8 Jackson Body Weight 142 % Jackson Body Weight 113 Body Mass Index (BMI) 25.8 GI Symptoms GI Symptoms None Last BM 05/21 Difficult in: Chewing Skin Integrity/Comment: intact, no edema Current %PO Good (75-100%) Estimated Nutritional Goals BEE in Kcals: Using Current wt Calories/Kcals/Kg 25-30 Kcals Calculated 0913-7466 Protein: Using Current wt Protein g/k Protein Calculated 73 Fluid: ml 0771-0956 (1 ml/kcal) Nutritional Problem 1. Problem Problem none at this time Etiology n/a Signs/Symptoms: n/a Malnutrition Alert Is there a minimum of two criteria No selected? Query Text:Check all the applicable criteria. A minimum of two criteria are recommended for diagnosis of either severe or non-severe malnutrition. Malnutrition Related to Morbid Obesity Malnutrition related to morbid obesity No Intervention/Recommendation Comments Continue mechanical soft, ground diet Expected Outcomes/Goals Expected Outcomes/Goals goal: PO intake >50% monitor wt, labs, skin, PO intake
--- NOTE | 2017-05-22 23:56 | Progress Notes ---
DATE: 05/22/2017 The patient still with yelling episodes, screaming episodes, screaming for coffee, verbally accosting staff, making demands. She has been somewhat calmer over the past 24 hours, calmer this morning, somewhat more amenable to treatment. Still impulsive and unpredictable, unruly behaviors. Medications reviewed. No overt side effects. ASSESSMENT: The patient remains symptomatic, still with yelling and screaming episodes. PLAN: We will continue to monitor, continue to adjust and titrate medications. Her symptoms are ongoing. She is not safe for a lower level of care. [facility]# [id number]
[2017-05-23] MEDS: Multivitamin w/ Minerals Tab PO SCH (08:31)
[2017-05-23] MEDS: Ferrous Sulfate 325 MG TAB PO SCH (08:31)
[2017-05-23] MEDS: Levothyroxine 0.05 Mg Tab PO SCH (08:31)
[2017-05-23] MEDS ORDERED: Haloperidol Lactate 5 mg/mL 1mL Vial IM ONE (12:15)
[2017-05-23] MEDS ORDERED: Haloperidol Lactate 5 mg/mL 1mL Vial ONE (12:18)
--- NOTE | 2017-05-23 17:18 | Internal Medicine Prog Note ---
Internal Medicine Subjective - Subjective Service Date: 05/23/17 Patient seen and examined:: with staff Patient is:: verbal, in bed, talking Per staff patient has:: no adverse event Internal Medicine Objective - Results Result Diagrams: 05/17/17 21:21 05/17/17 21:21 Recent Labs: Laboratory Last Values WBC 7.8 Th/cmm (4.8-10.8) 05/17/17 21:21 RBC 4.26 Mil/cmm (3.80-5.10) 05/17/17 21:21 Hgb 12.3 gm/dL (12-16) 05/17/17 21:21 Hct 36.3 % (41.0-60) L 05/17/17 21:21 MCV 85.2 fl (81-100) 05/17/17 21:21 MCH 28.8 pg (27.0-31.0) 05/17/17 21: MCHC Differential 33.9 pg (28.0-36.0) 05/17/17 21:21 RDW 15.4 % (11.5-20.0) 05/17/17 21:21 Plt Count 266 Th/cmm (150-400) D 05/17/17 21:21 MPV 7.9 fl 05/17/17 21:21 Neutrophils % 49.6 % (40.0-80.0) 05/17/17 21:21 Lymphocytes % 37.9 % (20.0-50.0) 05/17/17 21:21 Monocytes % 10.3 % (2.0-10.0) H 05/17/17 21:21 Eosinophils % 1.9 % (0.0-5.0) 05/17/17 21:21 Basophils % 0.3 % (0.0-2.0) 05/17/17 21:21 Sodium 136 mEq/L (136-145) 05/17/17 21:21 Potassium 4.2 mEq/L (3.5-5.1) 05/17/17 21:21 Chloride 99 mEq/L (98-107) 05/17/17 21:21 Carbon Dioxide 32.4 mEq/L (21.0-31.0) H 05/17/17 21:21 Anion Gap 8.8 (7.0-16.0) 05/17/17 21:21 BUN 14 mg/dL (7-25) 05/17/17 21:21 Creatinine 0.7 mg/dL (0.6-1.2) 05/17/17 21:21 Est GFR ( Amer) > 60.0 ml/min (>90) 05/17/17 21:21 Est GFR (Non-Af Amer) > 60.0 ml/min 05/17/17 21:21 BUN/Creatinine Ratio 20.0 05/17/17 21:21 Glucose 75 mg/dL (70-105) 05/17/17 21:21 Calcium 9.7 mg/dL (8.6-10.3) 05/17/17 21:21 Total Bilirubin 0.2 mg/dL (0.3-1.0) L 05/17/17 21:21 AST 13 U/L (13-39) 05/17/17 21:21 ALT 10 U/L (7-52) 05/17/17 21:21 Alkaline Phosphatase 170 U/L (34-104) H 05/17/17 21:21 Total Protein 6.8 gm/dL (6.0-8.3) 05/17/17 21:21 Albumin 3.9 gm/dL (3.7-5.3) 05/17/17 21:21 Globulin 2.9 gm/dL 05/17/17 21:21 Albumin/Globulin Ratio 1.3 (1.0-1.8) 05/17/17 21:21 TSH 5.60 uIU/ml (0.34-5.60) 05/17/17 21:21 Valproic Acid 66.7 ug/mL (50.0-100.0) 05/22/17 07:40 - Physical Exam Vitals and I&O: Vital Signs Temp 98.2 F 05/23/17 06:57 Pulse 89 05/23/17 06:57 Resp 20 05/23/17 06:57 BP 124/86 05/23/17 06:57 Pulse Ox 96 05/23/17 06:57 Intake & Output 05/22/17 05/23/17 05/23/17 18:59 06:59 18:59 Intake Total 1800 120 Balance 1800 120 Intake: Oral 1800 120 Other: # Voids 5 3 # Bowel Movements 0 Stool Characteristics Soft Soft Formed Formed Active Medications: Current Medications Acetaminophen (Tylenol) 650 mg PO Q4HR PRN PRN Reason: Pain or Fever >101 Stop: 07/16/17 23:21 Clonazepam (Klonopin) 2 mg PO BID [facility] PRN Reason: Protocol Stop: 07/17/17 08:59 Last Admin: 05/23/17 16:29 Dose: 2 mg Docusate Sodium (Colace) 100 mg PO BID [facility] Stop: 07/17/17 08:59 Last Admin: 05/23/17 16:29 Dose: 100 mg Famotidine (Pepcid) 20 mg PO DAILY [facility] Stop: 07/17/17 08:59 Last Admin: 05/23/17 08:31 Dose: 20 mg Ferrous Sulfate (Iron) 325 mg PO DAILY [facility] Stop: 07/17/17 08:59 Last Admin: 05/23/17 08:31 Dose: 325 mg Folic Acid (Folate) 1 mg PO DAILY [facility] Stop: 07/17/17 08:59 Last Admin: 05/23/17 08:31 Dose: 1 mg Haloperidol (Haldol) 10 mg PO TID [facility] PRN Reason: Protocol Stop: 07/17/17 08:59 Last Admin: 05/23/17 15:00 Dose: Not Given Levothyroxine Sodium (Synthroid) 0.05 mg PO QDAC [facility] Stop: 07/17/17 07:29 Last Admin: 05/23/17 08:31 Dose: 0.05 mg Magnesium Hydroxide (Milk Of Magnesia) 30 ml PO DAILY PRN PRN Reason: Constipation Stop: 07/16/17 23:21 Quetiapine Fumarate (Seroquel) 400 mg PO BID [facility] PRN Reason: Protocol Stop: 07/17/17 08:59 Last Admin: 05/23/17 16:29 Dose: 400 mg Valproate Sodium (Depakene) 500 mg PO BID [facility] Stop: 07/17/17 08:59 Last Admin: 05/23/17 16:30 Dose: 500 mg Valproate Sodium (Depakene) 750 mg PO HS [facility] Stop: 07/17/17 20:59 Last Admin: 05/22/17 21:35 Dose: 750 mg General: weak, demented HEENT: NC/AT, PERRLA, EOMI, anicteric sclerae, throat clear Neck: Supple, No JVD, No thyromegaly, No LAD Lungs: CTAB Cardiovascular: RRR, Normal S1, Normal S2, without murmur Abdomen: soft, non-tender, non-distended Extremities: clear Neurological: no change - Procedures Procedures: Procedures Procedure Code Date INDIVID PSYCHOTHERAP NEC 94.39 06/08/08 OTHER GROUP THERAPY 94.44 06/08/08 Internal Medicine Assmt/Plan - Assessment Assessment: 1.HYPOTHYRIODISIM. 2.DJD. 3.DEMENTIA. 4.PSYCHOSIS - Plan Plan: CONTINUE ON CURRENT MEDICATION AND . Nutritional Asmnt/Malnutr-PDOC - Dietary Evaluation Malnutrition Findings (Please click <Entered> for more info): Nutritional Asmnt/Malnutrition Start: 05/22/17 13: 57 Text: Status: Complete Freq: Document 05/22/17 13:57 [email or web address] (Rec: 05/22/17 14:01 [email or web address]) Nutritional Asmnt/Malnutrition Patient General Information Nutritional Screening Moderate Risk Diagnosis psychosis NOS Pertinent Medical Hx/Surgical Hx hypothyroidism, dementia, psychosis Subjective Information Pt A&O x 1, not appropriate for interview. PO intake: 100% Current Diet Order/ Nutrition Support mechanical soft, ground Pertinent Medications colace, pepcid, iron, folate, synthroid, MOM, Pertinent Labs (05/17) alk phos: 170 Nutritional Hx/Data Height 1.68 m Height (Calculated Centimeters) 167.6 Current Weight (lbs) 72.575 kg Weight (Calculated Kilograms) 72.6 Weight (Calculated Grams) 24034.8 [place]eld Body Weight 142 % Weld Body Weight 113 Body Mass Index (BMI) 25.8 GI Symptoms GI Symptoms None Last BM 05/21 Difficult in: Chewing Skin Integrity/Comment: intact, no edema Current %PO Good (75-100%) Estimated Nutritional Goals BEE in Kcals: Using Current wt Calories/Kcals/Kg 25-30 Kcals Calculated 7211-8302 Protein: Using Current wt Protein g/k Protein Calculated 73 Fluid: ml 2990-3481 (1 ml/kcal) Nutritional Problem 1. Problem Problem none at this time Etiology n/a Signs/Symptoms: n/a Malnutrition Alert Is there a minimum of two criteria No selected? Query Text:Check all the applicable criteria. A minimum of two criteria are recommended for diagnosis of either severe or non-severe malnutrition. Malnutrition Related to Morbid Obesity Malnutrition related to morbid obesity No Intervention/Recommendation Comments Continue mechanical soft, ground diet Expected Outcomes/Goals Expected Outcomes/Goals goal: PO intake >50% monitor wt, labs, skin, PO intake
--- NOTE | 2017-05-23 21:48 | Progress Notes ---
DATE: 05/23/2017 SUBJECTIVE: The patient with ongoing yelling episodes, screaming episodes, still accosting staff. She seems somewhat calmer this morning, sleeping, but arousable, but staff noting she remains highly impulsive, unpredictable. Medications reviewed. No overt side effects. ASSESSMENT: The patient remains symptomatic, still yelling, screaming, difficult to be cared for at a lower level of care, still ruminative. PLAN: We will continue to monitor. We will titrate and adjust medications. [facility]# [id number]
[2017-05-24] MEDS: Levothyroxine 0.05 Mg Tab PO SCH (06:49)
[2017-05-24] MEDS: Multivitamin w/ Minerals Tab PO SCH (08:33)
[2017-05-24] MEDS: Ferrous Sulfate 325 MG TAB PO SCH (08:34)
--- NOTE | 2017-05-24 20:09 | Internal Medicine Prog Note ---
Internal Medicine Subjective - Subjective Service Date: 05/24/17 Patient seen and examined:: with staff Patient is:: verbal, in bed, talking Per staff patient has:: no adverse event Internal Medicine Objective - Results Result Diagrams: 05/17/17 21:21 05/17/17 21:21 Recent Labs: Laboratory Last Values WBC 7.8 Th/cmm (4.8-10.8) 05/17/17 21:21 RBC 4.26 Mil/cmm (3.80-5.10) 05/17/17 21:21 Hgb 12.3 gm/dL (12-16) 05/17/17 21:21 Hct 36.3 % (41.0-60) L 05/17/17 21:21 MCV 85.2 fl (81-100) 05/17/17 21:21 MCH 28.8 pg (27.0-31.0) 05/17/17 21: MCHC Differential 33.9 pg (28.0-36.0) 05/17/17 21:21 RDW 15.4 % (11.5-20.0) 05/17/17 21:21 Plt Count 266 Th/cmm (150-400) D 05/17/17 21:21 MPV 7.9 fl 05/17/17 21:21 Neutrophils % 49.6 % (40.0-80.0) 05/17/17 21:21 Lymphocytes % 37.9 % (20.0-50.0) 05/17/17 21:21 Monocytes % 10.3 % (2.0-10.0) H 05/17/17 21:21 Eosinophils % 1.9 % (0.0-5.0) 05/17/17 21:21 Basophils % 0.3 % (0.0-2.0) 05/17/17 21:21 Sodium 136 mEq/L (136-145) 05/17/17 21:21 Potassium 4.2 mEq/L (3.5-5.1) 05/17/17 21:21 Chloride 99 mEq/L (98-107) 05/17/17 21:21 Carbon Dioxide 32.4 mEq/L (21.0-31.0) H 05/17/17 21:21 Anion Gap 8.8 (7.0-16.0) 05/17/17 21:21 BUN 14 mg/dL (7-25) 05/17/17 21:21 Creatinine 0.7 mg/dL (0.6-1.2) 05/17/17 21:21 Est GFR ( Amer) > 60.0 ml/min (>90) 05/17/17 21:21 Est GFR (Non-Af Amer) > 60.0 ml/min 05/17/17 21:21 BUN/Creatinine Ratio 20.0 05/17/17 21:21 Glucose 75 mg/dL (70-105) 05/17/17 21:21 Calcium 9.7 mg/dL (8.6-10.3) 05/17/17 21:21 Total Bilirubin 0.2 mg/dL (0.3-1.0) L 05/17/17 21:21 AST 13 U/L (13-39) 05/17/17 21:21 ALT 10 U/L (7-52) 05/17/17 21:21 Alkaline Phosphatase 170 U/L (34-104) H 05/17/17 21:21 Total Protein 6.8 gm/dL (6.0-8.3) 05/17/17 21:21 Albumin 3.9 gm/dL (3.7-5.3) 05/17/17 21:21 Globulin 2.9 gm/dL 05/17/17 21:21 Albumin/Globulin Ratio 1.3 (1.0-1.8) 05/17/17 21:21 TSH 5.60 uIU/ml (0.34-5.60) 05/17/17 21:21 Valproic Acid 66.7 ug/mL (50.0-100.0) 05/22/17 07:40 - Physical Exam Vitals and I&O: Vital Signs Temp 97.4 F 05/24/17 15:32 Pulse 93 05/24/17 15:32 Resp 20 05/24/17 15:32 BP 139/64 05/24/17 15:32 Pulse Ox 97 05/24/17 15:32 Intake & Output 05/24/17 05/24/17 05/25/17 06:59 18:59 06:59 Intake Total 120 1200 Balance 120 1200 Intake: Oral 120 1200 Other: # Voids 3 # Bowel Movements 1 Active Medications: Current Medications Acetaminophen (Tylenol) 650 mg PO Q4HR PRN PRN Reason: Pain or Fever >101 Stop: 07/16/17 23:21 Chlorpromazine (Thorazine) 50 mg PO Q6HR PRN; Protocol PRN Reason: Agitation Stop: 07/23/17 07:19 Last Admin: 05/24/17 14:02 Dose: 50 mg Clonazepam (Klonopin) 2 mg PO BID [facility] PRN Reason: Protocol Stop: 07/17/17 08:59 Last Admin: 05/24/17 16:20 Dose: 2 mg Docusate Sodium (Colace) 100 mg PO BID [facility] Stop: 07/17/17 08:59 Last Admin: 05/24/17 16:20 Dose: 100 mg Famotidine (Pepcid) 20 mg PO DAILY [facility] Stop: 07/17/17 08:59 Last Admin: 05/24/17 08:33 Dose: 20 mg Ferrous Sulfate (Iron) 325 mg PO DAILY [facility] Stop: 07/17/17 08:59 Last Admin: 05/24/17 08:34 Dose: 325 mg Folic Acid (Folate) 1 mg PO DAILY [facility] Stop: 07/17/17 08:59 Last Admin: 05/24/17 08:34 Dose: 1 mg Haloperidol (Haldol) 10 mg PO TID [facility] PRN Reason: Protocol Stop: 07/17/17 08:59 Last Admin: 05/24/17 14:02 Dose: 10 mg Levothyroxine Sodium (Synthroid) 0.05 mg PO QDAC [facility] Stop: 07/17/17 07:29 Last Admin: 05/24/17 06:49 Dose: 0.05 mg Magnesium Hydroxide (Milk Of Magnesia) 30 ml PO DAILY PRN PRN Reason: Constipation Stop: 07/16/17 23:21 Quetiapine Fumarate (Seroquel) 400 mg PO BID [facility] PRN Reason: Protocol Stop: 07/17/17 08:59 Last Admin: 05/24/17 16:20 Dose: 400 mg Valproate Sodium (Depakene) 500 mg PO BID [facility] Stop: 07/17/17 08:59 Last Admin: 05/24/17 16:19 Dose: 500 mg Valproate Sodium (Depakene) 1,000 mg PO HS [facility] Stop: 07/23/17 07:03 General: weak, demented HEENT: NC/AT, PERRLA, EOMI, anicteric sclerae, throat clear Neck: Supple, No JVD, No thyromegaly, No LAD Lungs: CTAB Cardiovascular: RRR, Normal S1, Normal S2, without murmur Abdomen: soft, non-tender, non-distended Extremities: clear Neurological: no change - Procedures Procedures: Procedures Procedure Code Date INDIVID PSYCHOTHERAP NEC 94.39 06/08/08 OTHER GROUP THERAPY 94.44 06/08/08 Internal Medicine Assmt/Plan - Assessment Assessment: 1.HYPOTHYRIODISIM. 2.DJD. 3.DEMENTIA. 4.PSYCHOSIS - Plan Plan: CONTINUE ON CURRENT MEDICATION AND . Nutritional Asmnt/Malnutr-PDOC - Dietary Evaluation Malnutrition Findings (Please click <Entered> for more info): Nutritional Asmnt/Malnutrition Start: 05/22/17 13: 57 Text: Status: Complete Freq: Document 05/22/17 13:57 [email or web address] (Rec: 05/22/17 14:01 [email or web address]) Nutritional Asmnt/Malnutrition Patient General Information Nutritional Screening Moderate Risk Diagnosis psychosis NOS Pertinent Medical Hx/Surgical Hx hypothyroidism, dementia, psychosis Subjective Information Pt A&O x 1, not appropriate for interview. PO intake: 100% Current Diet Order/ Nutrition Support mechanical soft, ground Pertinent Medications colace, pepcid, iron, folate, synthroid, MOM, Pertinent Labs (05/17) alk phos: 170 Nutritional Hx/Data Height 1.68 m Height (Calculated Centimeters) 167.6 Current Weight (lbs) 72.575 kg Weight (Calculated Kilograms) 72.6 Weight (Calculated Grams) 05639.8 [place] Body Weight 142 % [place] Body Weight 113 Body Mass Index (BMI) 25.8 GI Symptoms GI Symptoms None Last BM 05/21 Difficult in: Chewing Skin Integrity/Comment: intact, no edema Current %PO Good (75-100%) Estimated Nutritional Goals BEE in Kcals: Using Current wt Calories/Kcals/Kg 25-30 Kcals Calculated 8950-7024 Protein: Using Current wt Protein g/k Protein Calculated 73 Fluid: ml 3565-8070 (1 ml/kcal) Nutritional Problem 1. Problem Problem none at this time Etiology n/a Signs/Symptoms: n/a Malnutrition Alert Is there a minimum of two criteria No selected? Query Text:Check all the applicable criteria. A minimum of two criteria are recommended for diagnosis of either severe or non-severe malnutrition. Malnutrition Related to Morbid Obesity Malnutrition related to morbid obesity No Intervention/Recommendation Comments Continue mechanical soft, ground diet Expected Outcomes/Goals Expected Outcomes/Goals goal: PO intake >50% monitor wt, labs, skin, PO intake
--- NOTE | 2017-05-25 02:24 | Progress Notes ---
DATE: 05/24/2017 SUBJECTIVE: The patient with ongoing yelling episodes, bizarre behaviors, eating other people's foods, intrusive, urinating on the floor, claiming that she disimpact herself. She is irritable, still symptomatic, highly impulsive and unpredictable. ASSESSMENT: The patient remains bizarre, still with ongoing behaviors, not safe for a lower level of care. Medications were reviewed including dosages and frequencies. PLAN: We will continue to monitor. Depakote level at 66.7. She may be able to tolerate a higher dosing to 500 mg twice daily, 750 mg at bedtime. We will increase her evening dose to 1000. Her most previous level was a redo and is fairly accurate. [facility]# [id number]
[2017-05-25] MEDS: Levothyroxine 0.05 Mg Tab PO SCH (06:44)
[2017-05-25] MEDS: Ferrous Sulfate 325 MG TAB PO SCH (08:06)
[2017-05-25] MEDS: Multivitamin w/ Minerals Tab PO SCH (08:06)
--- NOTE | 2017-05-25 21:12 | General Progress Note ---
Subjective - Review of Systems Service Date: 05/25/17 Subjective: resting comfortably no disrtess Objective - Results Result Diagrams: 05/17/17 21:21 05/17/17 21:21 Recent Labs: Laboratory Last Values WBC 7.8 Th/cmm (4.8-10.8) 05/17/17 21:21 RBC 4.26 Mil/cmm (3.80-5.10) 05/17/17 21:21 Hgb 12.3 gm/dL (12-16) 05/17/17 21:21 Hct 36.3 % (41.0-60) L 05/17/17 21:21 MCV 85.2 fl (81-100) 05/17/17 21:21 MCH 28.8 pg (27.0-31.0) 05/17/17 21: MCHC Differential 33.9 pg (28.0-36.0) 05/17/17 21:21 RDW 15.4 % (11.5-20.0) 05/17/17 21:21 Plt Count 266 Th/cmm (150-400) D 05/17/17 21:21 MPV 7.9 fl 05/17/17 21:21 Neutrophils % 49.6 % (40.0-80.0) 05/17/17 21:21 Lymphocytes % 37.9 % (20.0-50.0) 05/17/17 21:21 Monocytes % 10.3 % (2.0-10.0) H 05/17/17 21:21 Eosinophils % 1.9 % (0.0-5.0) 05/17/17 21:21 Basophils % 0.3 % (0.0-2.0) 05/17/17 21:21 Sodium 136 mEq/L (136-145) 05/17/17 21:21 Potassium 4.2 mEq/L (3.5-5.1) 05/17/17 21:21 Chloride 99 mEq/L (98-107) 05/17/17 21:21 Carbon Dioxide 32.4 mEq/L (21.0-31.0) H 05/17/17 21:21 Anion Gap 8.8 (7.0-16.0) 05/17/17 21:21 BUN 14 mg/dL (7-25) 05/17/17 21:21 Creatinine 0.7 mg/dL (0.6-1.2) 05/17/17 21:21 Est GFR ( Amer) > 60.0 ml/min (>90) 05/17/17 21:21 Est GFR (Non-Af Amer) > 60.0 ml/min 05/17/17 21:21 BUN/Creatinine Ratio 20.0 05/17/17 21:21 Glucose 75 mg/dL (70-105) 05/17/17 21:21 Calcium 9.7 mg/dL (8.6-10.3) 05/17/17 21:21 Total Bilirubin 0.2 mg/dL (0.3-1.0) L 05/17/17 21:21 AST 13 U/L (13-39) 05/17/17 21:21 ALT 10 U/L (7-52) 05/17/17 21:21 Alkaline Phosphatase 170 U/L (34-104) H 05/17/17 21:21 Total Protein 6.8 gm/dL (6.0-8.3) 05/17/17 21:21 Albumin 3.9 gm/dL (3.7-5.3) 05/17/17 21:21 Globulin 2.9 gm/dL 05/17/17 21:21 Albumin/Globulin Ratio 1.3 (1.0-1.8) 05/17/17 21:21 TSH 5.60 uIU/ml (0.34-5.60) 05/17/17 21:21 Valproic Acid 66.7 ug/mL (50.0-100.0) 05/22/17 07:40 - Physical Exam Vitals and I&O: Vital Signs Temp 97.8 F 05/25/17 20:44 Pulse 94 05/25/17 20:44 Resp 19 05/25/17 20:44 BP 143/77 05/25/17 20:44 Pulse Ox 97 05/25/17 20:44 Intake & Output 05/25/17 05/25/17 05/26/17 06:59 18:59 06:59 Intake Total 560 1200 240 Output Total 1 Balance 560 1200 239 Intake: Oral 560 1200 240 Output: Stool 1 Other: # Voids 2 3 1 # Bowel Movements 1 Active Medications: Current Medications Acetaminophen (Tylenol) 650 mg PO Q4HR PRN PRN Reason: Pain or Fever >101 Stop: 07/16/17 23:21 Chlorpromazine (Thorazine) 50 mg PO Q6HR PRN; Protocol PRN Reason: Agitation Stop: 07/23/17 07:19 Last Admin: 05/25/17 14:08 Dose: 50 mg Clonazepam (Klonopin) 2 mg PO BID [facility] PRN Reason: Protocol Stop: 07/17/17 08:59 Last Admin: 05/25/17 16:13 Dose: 2 mg Docusate Sodium (Colace) 100 mg PO BID [facility] Stop: 07/17/17 08:59 Last Admin: 05/25/17 16:13 Dose: 100 mg Famotidine (Pepcid) 20 mg PO DAILY [facility] Stop: 07/17/17 08:59 Last Admin: 05/25/17 08:07 Dose: 20 mg Ferrous Sulfate (Iron) 325 mg PO DAILY [facility] Stop: 07/17/17 08:59 Last Admin: 05/25/17 08:06 Dose: 325 mg Folic Acid (Folate) 1 mg PO DAILY [facility] Stop: 07/17/17 08:59 Last Admin: 05/25/17 08:07 Dose: 1 mg Haloperidol (Haldol) 10 mg PO TID [facility] PRN Reason: Protocol Stop: 07/17/17 08:59 Last Admin: 05/25/17 20:12 Dose: 10 mg Levothyroxine Sodium (Synthroid) 0.05 mg PO QDAC [facility] Stop: 07/17/17 07:29 Last Admin: 05/25/17 06:44 Dose: 0.05 mg Magnesium Hydroxide (Milk Of Magnesia) 30 ml PO DAILY PRN PRN Reason: Constipation Stop: 07/16/17 23:21 Quetiapine Fumarate (Seroquel) 400 mg PO BID [facility] PRN Reason: Protocol Stop: 07/17/17 08:59 Last Admin: 05/25/17 16:13 Dose: 400 mg Valproate Sodium (Depakene) 500 mg PO BID [facility] Stop: 07/17/17 08:59 Last Admin: 05/25/17 16:13 Dose: 500 mg Valproate Sodium (Depakene) 1,000 mg PO HS [facility] Stop: 07/23/17 07:03 Last Admin: 05/25/17 20:12 Dose: 1,000 mg General: No acute distress HEENT: PERRLA, EOMI Neck: Supple, JVD Cardiovascular: Regular rate, Normal S1, Normal S2 Lungs: Clear to auscultation Abdomen: Bowel sounds, Soft - Procedures Procedures: Procedures Procedure Code Date INDIVID PSYCHOTHERAP NEC 94.39 06/08/08 OTHER GROUP THERAPY 94.44 06/08/08 Assessment/Plan - Assessment Assessment: 1.HYPOTHYRIODISIM. 2.DJD. 3.DEMENTIA. 4.PSYCHOSIS - Plan Plan: cont current treatment Nutritional Asmnt/Malnutr-PDOC - Dietary Evaluation Malnutrition Findings (Please click <Entered> for more info): Nutritional Asmnt/Malnutrition Start: 05/22/17 13: 57 Text: Status: Complete Freq: Document 05/22/17 13:57 [email or web address] (Rec: 05/22/17 14:01 [email or web address]) Nutritional Asmnt/Malnutrition Patient General Information Nutritional Screening Moderate Risk Diagnosis psychosis NOS Pertinent Medical Hx/Surgical Hx hypothyroidism, dementia, psychosis Subjective Information Pt A&O x 1, not appropriate for interview. PO intake: 100% Current Diet Order/ Nutrition Support mechanical soft, ground Pertinent Medications colace, pepcid, iron, folate, synthroid, MOM, Pertinent Labs (05/17) alk phos: 170 Nutritional Hx/Data Height 1.68 m Height (Calculated Centimeters) 167.6 Current Weight (lbs) 72.575 kg Weight (Calculated Kilograms) 72.6 Weight (Calculated Grams) 78891.8 [place] Body Weight 142 % [place] Body Weight 113 Body Mass Index (BMI) 25.8 GI Symptoms GI Symptoms None Last BM 05/21 Difficult in: Chewing Skin Integrity/Comment: intact, no edema Current %PO Good (75-100%) Estimated Nutritional Goals BEE in Kcals: Using Current wt Calories/Kcals/Kg 25-30 Kcals Calculated 0205-3869 Protein: Using Current wt Protein g/k Protein Calculated 73 Fluid: ml 4367-3034 (1 ml/kcal) Nutritional Problem 1. Problem Problem none at this time Etiology n/a Signs/Symptoms: n/a Malnutrition Alert Is there a minimum of two criteria No selected? Query Text:Check all the applicable criteria. A minimum of two criteria are recommended for diagnosis of either severe or non-severe malnutrition. Malnutrition Related to Morbid Obesity Malnutrition related to morbid obesity No Intervention/Recommendation Comments Continue mechanical soft, ground diet Expected Outcomes/Goals Expected Outcomes/Goals goal: PO intake >50% monitor wt, labs, skin, PO intake
--- NOTE | 2017-05-26 00:28 | Progress Notes ---
DATE: 05/25/2017 SUBJECTIVE: The patient was seen, chart reviewed, discussed with staff. The patient continues to be extremely irritable, loud, shouting, different accusations at staff members in a very loud volume, requires numerous redirections. She has never been compliant with her medications. PLAN: The patient continues to be extremely confused, so that she will require continued inpatient care for stabilization and treatment. We will monitor patient on a daily basis for response to medications and titrate as needed. JOB# [id number]
[2017-05-26] MEDS: Levothyroxine 0.05 Mg Tab PO SCH (06:44)
[2017-05-26] MEDS: Ferrous Sulfate 325 MG TAB PO SCH (08:23)
[2017-05-26] MEDS: Multivitamin w/ Minerals Tab PO SCH (08:25)
--- NOTE | 2017-05-26 10:38 | General Progress Note ---
Subjective - Review of Systems Service Date: 05/26/17 Subjective: resting comfortably no disrtess Objective - Results Result Diagrams: 05/17/17 21:21 05/17/17 21:21 Recent Labs: Laboratory Last Values WBC 7.8 Th/cmm (4.8-10.8) 05/17/17 21:21 RBC 4.26 Mil/cmm (3.80-5.10) 05/17/17 21:21 Hgb 12.3 gm/dL (12-16) 05/17/17 21:21 Hct 36.3 % (41.0-60) L 05/17/17 21:21 MCV 85.2 fl (81-100) 05/17/17 21:21 MCH 28.8 pg (27.0-31.0) 05/17/17 21: MCHC Differential 33.9 pg (28.0-36.0) 05/17/17 21:21 RDW 15.4 % (11.5-20.0) 05/17/17 21:21 Plt Count 266 Th/cmm (150-400) D 05/17/17 21:21 MPV 7.9 fl 05/17/17 21:21 Neutrophils % 49.6 % (40.0-80.0) 05/17/17 21:21 Lymphocytes % 37.9 % (20.0-50.0) 05/17/17 21:21 Monocytes % 10.3 % (2.0-10.0) H 05/17/17 21:21 Eosinophils % 1.9 % (0.0-5.0) 05/17/17 21:21 Basophils % 0.3 % (0.0-2.0) 05/17/17 21:21 Sodium 136 mEq/L (136-145) 05/17/17 21:21 Potassium 4.2 mEq/L (3.5-5.1) 05/17/17 21:21 Chloride 99 mEq/L (98-107) 05/17/17 21:21 Carbon Dioxide 32.4 mEq/L (21.0-31.0) H 05/17/17 21:21 Anion Gap 8.8 (7.0-16.0) 05/17/17 21:21 BUN 14 mg/dL (7-25) 05/17/17 21:21 Creatinine 0.7 mg/dL (0.6-1.2) 05/17/17 21:21 Est GFR ( Amer) > 60.0 ml/min (>90) 05/17/17 21:21 Est GFR (Non-Af Amer) > 60.0 ml/min 05/17/17 21:21 BUN/Creatinine Ratio 20.0 05/17/17 21:21 Glucose 75 mg/dL (70-105) 05/17/17 21:21 Calcium 9.7 mg/dL (8.6-10.3) 05/17/17 21:21 Total Bilirubin 0.2 mg/dL (0.3-1.0) L 05/17/17 21:21 AST 13 U/L (13-39) 05/17/17 21:21 ALT 10 U/L (7-52) 05/17/17 21:21 Alkaline Phosphatase 170 U/L (34-104) H 05/17/17 21:21 Total Protein 6.8 gm/dL (6.0-8.3) 05/17/17 21:21 Albumin 3.9 gm/dL (3.7-5.3) 05/17/17 21:21 Globulin 2.9 gm/dL 05/17/17 21:21 Albumin/Globulin Ratio 1.3 (1.0-1.8) 05/17/17 21:21 TSH 5.60 uIU/ml (0.34-5.60) 05/17/17 21:21 Valproic Acid 66.7 ug/mL (50.0-100.0) 05/22/17 07:40 - Physical Exam Vitals and I&O: Vital Signs Temp 97.8 F 05/25/17 20:44 Pulse 94 05/25/17 20:44 Resp 19 05/25/17 20:44 BP 143/77 05/25/17 20:44 Pulse Ox 97 05/25/17 20:44 Intake & Output 05/25/17 05/26/17 05/26/17 18:59 06:59 18:59 Intake Total 1200 240 Output Total 1 Balance 1200 239 Intake: Oral 1200 240 Output: Stool 1 Other: # Voids 3 1 # Bowel Movements 1 Active Medications: Current Medications Acetaminophen (Tylenol) 650 mg PO Q4HR PRN PRN Reason: Pain or Fever >101 Stop: 07/16/17 23:21 Chlorpromazine (Thorazine) 50 mg PO Q6HR PRN; Protocol PRN Reason: Agitation Stop: 07/23/17 07:19 Last Admin: 05/26/17 00:18 Dose: 50 mg Clonazepam (Klonopin) 2 mg PO BID [facility] PRN Reason: Protocol Stop: 07/17/17 08:59 Last Admin: 05/26/17 08:24 Dose: 2 mg Docusate Sodium (Colace) 100 mg PO BID [facility] Stop: 07/17/17 08:59 Last Admin: 05/26/17 08:24 Dose: 100 mg Famotidine (Pepcid) 20 mg PO DAILY [facility] Stop: 07/17/17 08:59 Last Admin: 05/26/17 08:24 Dose: 20 mg Ferrous Sulfate (Iron) 325 mg PO DAILY [facility] Stop: 07/17/17 08:59 Last Admin: 05/26/17 08:23 Dose: 325 mg Folic Acid (Folate) 1 mg PO DAILY [facility] Stop: 07/17/17 08:59 Last Admin: 05/26/17 08:24 Dose: 1 mg Haloperidol (Haldol) 10 mg PO TID [facility] PRN Reason: Protocol Stop: 07/17/17 08:59 Last Admin: 05/26/17 08:23 Dose: 10 mg Levothyroxine Sodium (Synthroid) 0.05 mg PO QDAC [facility] Stop: 07/17/17 07:29 Last Admin: 05/26/17 06:44 Dose: 0.05 mg Magnesium Hydroxide (Milk Of Magnesia) 30 ml PO DAILY PRN PRN Reason: Constipation Stop: 07/16/17 23:21 Quetiapine Fumarate (Seroquel) 400 mg PO BID [facility] PRN Reason: Protocol Stop: 07/17/17 08:59 Last Admin: 05/26/17 08:23 Dose: 400 mg Valproate Sodium (Depakene) 500 mg PO BID [facility] Stop: 07/17/17 08:59 Last Admin: 05/26/17 08:24 Dose: 500 mg Valproate Sodium (Depakene) 1,000 mg PO HS [facility] Stop: 07/23/17 07:03 Last Admin: 05/25/17 20:12 Dose: 1,000 mg General: No acute distress HEENT: PERRLA, EOMI Neck: Supple, JVD Cardiovascular: Regular rate, Normal S1, Normal S2 Lungs: Clear to auscultation Abdomen: Bowel sounds, Soft - Procedures Procedures: Procedures Procedure Code Date INDIVID PSYCHOTHERAP NEC 94.39 06/08/08 OTHER GROUP THERAPY 94.44 06/08/08 Assessment/Plan - Assessment Assessment: 1.HYPOTHYRIODISIM. 2.DJD. 3.DEMENTIA. 4.PSYCHOSIS - Plan Plan: cont current treatment Nutritional Asmnt/Malnutr-PDOC - Dietary Evaluation Malnutrition Findings (Please click <Entered> for more info): Nutritional Asmnt/Malnutrition Start: 05/22/17 13: 57 Text: Status: Complete Freq: Document 05/22/17 13:57 [email or web address] (Rec: 05/22/17 14:01 [email or web address]) Nutritional Asmnt/Malnutrition Patient General Information Nutritional Screening Moderate Risk Diagnosis psychosis NOS Pertinent Medical Hx/Surgical Hx hypothyroidism, dementia, psychosis Subjective Information Pt A&O x 1, not appropriate for interview. PO intake: 100% Current Diet Order/ Nutrition Support mechanical soft, ground Pertinent Medications colace, pepcid, iron, folate, synthroid, MOM, Pertinent Labs (05/17) alk phos: 170 Nutritional Hx/Data Height 1.68 m Height (Calculated Centimeters) 167.6 Current Weight (lbs) 72.575 kg Weight (Calculated Kilograms) 72.6 Weight (Calculated Grams) 75352.8 [place] Body Weight 142 % [place] Body Weight 113 Body Mass Index (BMI) 25.8 GI Symptoms GI Symptoms None Last BM 05/21 Difficult in: Chewing Skin Integrity/Comment: intact, no edema Current %PO Good (75-100%) Estimated Nutritional Goals BEE in Kcals: Using Current wt Calories/Kcals/Kg 25-30 Kcals Calculated 6876-3877 Protein: Using Current wt Protein g/k Protein Calculated 73 Fluid: ml 0980-6797 (1 ml/kcal) Nutritional Problem 1. Problem Problem none at this time Etiology n/a Signs/Symptoms: n/a Malnutrition Alert Is there a minimum of two criteria No selected? Query Text:Check all the applicable criteria. A minimum of two criteria are recommended for diagnosis of either severe or non-severe malnutrition. Malnutrition Related to Morbid Obesity Malnutrition related to morbid obesity No Intervention/Recommendation Comments Continue mechanical soft, ground diet Expected Outcomes/Goals Expected Outcomes/Goals goal: PO intake >50% monitor wt, labs, skin, PO intake
--- NOTE | 2017-05-26 22:10 | Progress Notes ---
DATE: SUBJECTIVE: The patient seen, chart reviewed, and discussed with staff. The patient continues to be extremely irritable, loud shouting and requiring numerous redirections. She has, however, been compliant with her medications, denying any undue side effects. PLAN: The patient continues to be very confused. It was felt that she will require continued inpatient care for stabilization and treatment. We will monitor patient on a daily basis for response to medications and titrate meds as needed. [facility]# [id number]
[2017-05-27] MEDS: Multivitamin w/ Minerals Tab PO SCH (08:31)
[2017-05-27] MEDS: Levothyroxine 0.05 Mg Tab PO SCH (08:32)
[2017-05-27] MEDS: Ferrous Sulfate 325 MG TAB PO SCH (08:33)
[2017-05-27] MEDS ORDERED: Haloperidol Lactate 5 mg/mL 1mL Vial IM STA (10:05)
[2017-05-27] MEDS ORDERED: Haloperidol Lactate 5 mg/mL 1mL Vial ONE (10:06)
[2017-05-27] MEDS ORDERED: Haloperidol Lactate 5 mg/mL 1mL Vial IM ONE (15:46)
--- NOTE | 2017-05-27 19:53 | Internal Medicine Prog Note ---
Internal Medicine Subjective - Subjective Service Date: 05/27/17 Patient seen and examined:: with staff Patient is:: verbal, in bed, talking Per staff patient has:: no adverse event Internal Medicine Objective - Results Result Diagrams: 05/17/17 21:21 05/17/17 21:21 Recent Labs: Laboratory Last Values WBC 7.8 Th/cmm (4.8-10.8) 05/17/17 21:21 RBC 4.26 Mil/cmm (3.80-5.10) 05/17/17 21:21 Hgb 12.3 gm/dL (12-16) 05/17/17 21:21 Hct 36.3 % (41.0-60) L 05/17/17 21:21 MCV 85.2 fl (81-100) 05/17/17 21:21 MCH 28.8 pg (27.0-31.0) 05/17/17 21: MCHC Differential 33.9 pg (28.0-36.0) 05/17/17 21:21 RDW 15.4 % (11.5-20.0) 05/17/17 21:21 Plt Count 266 Th/cmm (150-400) D 05/17/17 21:21 MPV 7.9 fl 05/17/17 21:21 Neutrophils % 49.6 % (40.0-80.0) 05/17/17 21:21 Lymphocytes % 37.9 % (20.0-50.0) 05/17/17 21:21 Monocytes % 10.3 % (2.0-10.0) H 05/17/17 21:21 Eosinophils % 1.9 % (0.0-5.0) 05/17/17 21:21 Basophils % 0.3 % (0.0-2.0) 05/17/17 21:21 Sodium 136 mEq/L (136-145) 05/17/17 21:21 Potassium 4.2 mEq/L (3.5-5.1) 05/17/17 21:21 Chloride 99 mEq/L (98-107) 05/17/17 21:21 Carbon Dioxide 32.4 mEq/L (21.0-31.0) H 05/17/17 21:21 Anion Gap 8.8 (7.0-16.0) 05/17/17 21:21 BUN 14 mg/dL (7-25) 05/17/17 21:21 Creatinine 0.7 mg/dL (0.6-1.2) 05/17/17 21:21 Est GFR ( Amer) > 60.0 ml/min (>90) 05/17/17 21:21 Est GFR (Non-Af Amer) > 60.0 ml/min 05/17/17 21:21 BUN/Creatinine Ratio 20.0 05/17/17 21:21 Glucose 75 mg/dL (70-105) 05/17/17 21:21 Calcium 9.7 mg/dL (8.6-10.3) 05/17/17 21:21 Total Bilirubin 0.2 mg/dL (0.3-1.0) L 05/17/17 21:21 AST 13 U/L (13-39) 05/17/17 21:21 ALT 10 U/L (7-52) 05/17/17 21:21 Alkaline Phosphatase 170 U/L (34-104) H 05/17/17 21:21 Total Protein 6.8 gm/dL (6.0-8.3) 05/17/17 21:21 Albumin 3.9 gm/dL (3.7-5.3) 05/17/17 21:21 Globulin 2.9 gm/dL 05/17/17 21:21 Albumin/Globulin Ratio 1.3 (1.0-1.8) 05/17/17 21:21 TSH 5.60 uIU/ml (0.34-5.60) 05/17/17 21:21 Valproic Acid 60.1 ug/mL (50.0-100.0) 05/27/17 13:20 - Physical Exam Vitals and I&O: Vital Signs Temp 98 F 05/27/17 18:16 Pulse 90 05/27/17 18:16 Resp 19 05/27/17 18:16 BP 121/75 05/27/17 18:16 Pulse Ox 99 05/27/17 18:16 Intake & Output 05/27/17 05/27/17 05/28/17 06:59 18:59 06:59 Intake Total 1300 Balance 1300 Intake: Oral 1300 Other: # Voids 5 # Bowel Movements 1 Active Medications: Current Medications Acetaminophen (Tylenol) 650 mg PO Q4HR PRN PRN Reason: Pain or Fever >101 Stop: 07/16/17 23:21 Chlorpromazine (Thorazine) 50 mg PO Q6HR PRN; Protocol PRN Reason: Agitation Stop: 07/23/17 07:19 Last Admin: 05/26/17 23:49 Dose: 50 mg Clonazepam (Klonopin) 2 mg PO BID [facility] PRN Reason: Protocol Stop: 07/17/17 08:59 Last Admin: 05/27/17 17:33 Dose: 2 mg Docusate Sodium (Colace) 100 mg PO BID [facility] Stop: 07/17/17 08:59 Last Admin: 05/27/17 17:33 Dose: 100 mg Famotidine (Pepcid) 20 mg PO DAILY [facility] Stop: 07/17/17 08:59 Last Admin: 05/27/17 08:31 Dose: 20 mg Ferrous Sulfate (Iron) 325 mg PO DAILY [facility] Stop: 07/17/17 08:59 Last Admin: 05/27/17 08:33 Dose: 325 mg Folic Acid (Folate) 1 mg PO DAILY [facility] Stop: 07/17/17 08:59 Last Admin: 05/27/17 08:32 Dose: 1 mg Haloperidol (Haldol) 10 mg PO TID [facility] PRN Reason: Protocol Stop: 07/17/17 08:59 Last Admin: 05/27/17 14:13 Dose: 10 mg Levothyroxine Sodium (Synthroid) 0.05 mg PO QDAC [facility] Stop: 07/17/17 07:29 Last Admin: 05/27/17 08:32 Dose: 0.05 mg Magnesium Hydroxide (Milk Of Magnesia) 30 ml PO DAILY PRN PRN Reason: Constipation Stop: 07/16/17 23:21 Quetiapine Fumarate (Seroquel) 400 mg PO BID [facility] PRN Reason: Protocol Stop: 07/17/17 08:59 Last Admin: 05/27/17 17:30 Dose: 400 mg Valproate Sodium (Depakene) 500 mg PO BID [facility] Stop: 07/17/17 08:59 Last Admin: 05/27/17 17:31 Dose: 500 mg Valproate Sodium (Depakene) 1,000 mg PO HS [facility] Stop: 07/23/17 07:03 Last Admin: 05/26/17 21:36 Dose: Not Given General: weak, demented HEENT: NC/AT, PERRLA, EOMI, anicteric sclerae, throat clear Neck: Supple, No JVD, No thyromegaly, No LAD Lungs: CTAB Cardiovascular: RRR, Normal S1, Normal S2, without murmur Abdomen: soft, non-tender, non-distended Extremities: clear Neurological: no change - Procedures Procedures: Procedures Procedure Code Date INDIVID PSYCHOTHERAP NEC 94.39 06/08/08 OTHER GROUP THERAPY 94.44 06/08/08 Internal Medicine Assmt/Plan - Assessment Assessment: 1.HYPOTHYRIODISIM. 2.DJD. 3.DEMENTIA. 4.PSYCHOSIS - Plan Plan: CONTINUE ON CURRENT MEDICATION AND . Nutritional Asmnt/Malnutr-PDOC - Dietary Evaluation Malnutrition Findings (Please click <Entered> for more info): Nutritional Asmnt/Malnutrition Start: 05/22/17 13: 57 Text: Status: Complete Freq: Document 05/22/17 13:57 [email or web address] (Rec: 05/22/17 14:01 [email or web address]) Nutritional Asmnt/Malnutrition Patient General Information Nutritional Screening Moderate Risk Diagnosis psychosis NOS Pertinent Medical Hx/Surgical Hx hypothyroidism, dementia, psychosis Subjective Information Pt A&O x 1, not appropriate for interview. PO intake: 100% Current Diet Order/ Nutrition Support mechanical soft, ground Pertinent Medications colace, pepcid, iron, folate, synthroid, MOM, Pertinent Labs (05/17) alk phos: 170 Nutritional Hx/Data Height 1.68 m Height (Calculated Centimeters) 167.6 Current Weight (lbs) 72.575 kg Weight (Calculated Kilograms) 72.6 Weight (Calculated Grams) 52847.8 [place] Body Weight 142 % [place] Body Weight 113 Body Mass Index (BMI) 25.8 GI Symptoms GI Symptoms None Last BM 05/21 Difficult in: Chewing Skin Integrity/Comment: intact, no edema Current %PO Good (75-100%) Estimated Nutritional Goals BEE in Kcals: Using Current wt Calories/Kcals/Kg 25-30 Kcals Calculated 4715-7200 Protein: Using Current wt Protein g/k Protein Calculated 73 Fluid: ml 2978-3838 (1 ml/kcal) Nutritional Problem 1. Problem Problem none at this time Etiology n/a Signs/Symptoms: n/a Malnutrition Alert Is there a minimum of two criteria No selected? Query Text:Check all the applicable criteria. A minimum of two criteria are recommended for diagnosis of either severe or non-severe malnutrition. Malnutrition Related to Morbid Obesity Malnutrition related to morbid obesity No Intervention/Recommendation Comments Continue mechanical soft, ground diet Expected Outcomes/Goals Expected Outcomes/Goals goal: PO intake >50% monitor wt, labs, skin, PO intake
--- NOTE | 2017-05-28 02:33 | Progress Notes ---
DATE: 05/27/2017 SUBJECTIVE: Case was discussed with staff of the patient and reviewed records. This is a patient of mine that was transferred from [place] who was admitted on 05/17/2017 because of yelling and screaming. She was on the hallway, was hard to redirect, agitated, combative, not making sense, rambling, yelling at staff. The patient is with multiple prior admissions to this facility and other facilities because of psychotic, agitated symptoms. The patient continues to be yelling and screaming. Continues to have poor insight. She continues to be unpredictable, impulsive, needing redirection. She is on Haldol 10 mg 3 times a day and clonazepam 2 mg twice a day. Dr. Vasques added Thorazine for her 50 mg every 6 hours as needed. She is also on Seroquel 400 mg twice a day and Depakote 500 mg twice a day and 1000 mg at bedtime and I am not sure if the patient is compliant with the medication. I will be checking her Depakote level and that will also give us an idea if she has been compliant with the medication and no side effects with the medication, no sedation, no nausea, no extrapyramidal symptoms. PLAN: I will continue to work with the patient in group therapy, milieu therapy, adjust medication as needed. She does have a TSH that is within normal range. No other lab work was available on the unit and we will continue outpatient group therapy, milieu therapy, adjust medication as needed. JOB# [id number]
[2017-05-28] MEDS: Levothyroxine 0.05 Mg Tab PO SCH (07:03)
[2017-05-28] MEDS: Multivitamin w/ Minerals Tab PO SCH (08:41)
[2017-05-28] MEDS: Ferrous Sulfate 325 MG TAB PO SCH (08:41)
--- NOTE | 2017-05-28 19:32 | Internal Medicine Prog Note ---
Internal Medicine Subjective - Subjective Service Date: 05/28/17 Patient seen and examined:: with staff Patient is:: verbal, in bed, talking Per staff patient has:: no adverse event Internal Medicine Objective - Results Result Diagrams: 05/17/17 21:21 05/17/17 21:21 Recent Labs: Laboratory Last Values WBC 7.8 Th/cmm (4.8-10.8) 05/17/17 21:21 RBC 4.26 Mil/cmm (3.80-5.10) 05/17/17 21:21 Hgb 12.3 gm/dL (12-16) 05/17/17 21:21 Hct 36.3 % (41.0-60) L 05/17/17 21:21 MCV 85.2 fl (81-100) 05/17/17 21:21 MCH 28.8 pg (27.0-31.0) 05/17/17 21: MCHC Differential 33.9 pg (28.0-36.0) 05/17/17 21:21 RDW 15.4 % (11.5-20.0) 05/17/17 21:21 Plt Count 266 Th/cmm (150-400) D 05/17/17 21:21 MPV 7.9 fl 05/17/17 21:21 Neutrophils % 49.6 % (40.0-80.0) 05/17/17 21:21 Lymphocytes % 37.9 % (20.0-50.0) 05/17/17 21:21 Monocytes % 10.3 % (2.0-10.0) H 05/17/17 21:21 Eosinophils % 1.9 % (0.0-5.0) 05/17/17 21:21 Basophils % 0.3 % (0.0-2.0) 05/17/17 21:21 Sodium 136 mEq/L (136-145) 05/17/17 21:21 Potassium 4.2 mEq/L (3.5-5.1) 05/17/17 21:21 Chloride 99 mEq/L (98-107) 05/17/17 21:21 Carbon Dioxide 32.4 mEq/L (21.0-31.0) H 05/17/17 21:21 Anion Gap 8.8 (7.0-16.0) 05/17/17 21:21 BUN 14 mg/dL (7-25) 05/17/17 21:21 Creatinine 0.7 mg/dL (0.6-1.2) 05/17/17 21:21 Est GFR ( Amer) > 60.0 ml/min (>90) 05/17/17 21:21 Est GFR (Non-Af Amer) > 60.0 ml/min 05/17/17 21:21 BUN/Creatinine Ratio 20.0 05/17/17 21:21 Glucose 75 mg/dL (70-105) 05/17/17 21:21 Calcium 9.7 mg/dL (8.6-10.3) 05/17/17 21:21 Total Bilirubin 0.2 mg/dL (0.3-1.0) L 05/17/17 21:21 AST 13 U/L (13-39) 05/17/17 21:21 ALT 10 U/L (7-52) 05/17/17 21:21 Alkaline Phosphatase 170 U/L (34-104) H 05/17/17 21:21 Total Protein 6.8 gm/dL (6.0-8.3) 05/17/17 21:21 Albumin 3.9 gm/dL (3.7-5.3) 05/17/17 21:21 Globulin 2.9 gm/dL 05/17/17 21:21 Albumin/Globulin Ratio 1.3 (1.0-1.8) 05/17/17 21:21 TSH 5.60 uIU/ml (0.34-5.60) 05/17/17 21:21 Valproic Acid 60.1 ug/mL (50.0-100.0) 05/27/17 13:20 - Physical Exam Vitals and I&O: Vital Signs Temp 98 F 05/27/17 18:16 Pulse 90 05/27/17 18:16 Resp 19 05/27/17 18:16 BP 121/75 05/27/17 18:16 Pulse Ox 99 05/27/17 18:16 Active Medications: Current Medications Acetaminophen (Tylenol) 650 mg PO Q4HR PRN PRN Reason: Pain or Fever >101 Stop: 07/16/17 23:21 Chlorpromazine (Thorazine) 50 mg PO TID [facility] PRN Reason: Protocol Stop: 07/27/17 13:59 Last Admin: 05/28/17 13:07 Dose: 50 mg Clonazepam (Klonopin) 2 mg PO BID [facility] PRN Reason: Protocol Stop: 07/17/17 08:59 Last Admin: 05/28/17 18:10 Dose: 2 mg Docusate Sodium (Colace) 100 mg PO BID [facility] Stop: 07/17/17 08:59 Last Admin: 05/28/17 18:10 Dose: 100 mg Famotidine (Pepcid) 20 mg PO DAILY [facility] Stop: 07/17/17 08:59 Last Admin: 05/28/17 08:41 Dose: 20 mg Ferrous Sulfate (Iron) 325 mg PO DAILY [facility] Stop: 07/17/17 08:59 Last Admin: 05/28/17 08:41 Dose: 325 mg Folic Acid (Folate) 1 mg PO DAILY [facility] Stop: 07/17/17 08:59 Last Admin: 05/28/17 08:41 Dose: 1 mg Haloperidol (Haldol) 10 mg PO TID [facility] PRN Reason: Protocol Stop: 07/17/17 08:59 Last Admin: 05/28/17 13:07 Dose: 10 mg Levothyroxine Sodium (Synthroid) 0.05 mg PO QDAC [facility] Stop: 07/17/17 07:29 Last Admin: 05/28/17 07:03 Dose: 0.05 mg Magnesium Hydroxide (Milk Of Magnesia) 30 ml PO DAILY PRN PRN Reason: Constipation Stop: 07/16/17 23:21 Quetiapine Fumarate (Seroquel) 400 mg PO BID [facility] PRN Reason: Protocol Stop: 07/17/17 08:59 Last Admin: 05/28/17 18:11 Dose: 400 mg Valproate Sodium (Depakene) 500 mg PO BID [facility] Stop: 07/17/17 08:59 Last Admin: 05/28/17 18:10 Dose: 500 mg Valproate Sodium (Depakene) 1,000 mg PO HS [facility] Stop: 07/23/17 07:03 Last Admin: 05/27/17 21:51 Dose: 1,000 mg General: weak, demented HEENT: NC/AT, PERRLA, EOMI, anicteric sclerae, throat clear Neck: Supple, No JVD, No thyromegaly, No LAD Lungs: CTAB Cardiovascular: RRR, Normal S1, Normal S2, without murmur Abdomen: soft, non-tender, non-distended Extremities: clear Neurological: no change - Procedures Procedures: Procedures Procedure Code Date INDIVID PSYCHOTHERAP NEC 94.39 06/08/08 OTHER GROUP THERAPY 94.44 06/08/08 Internal Medicine Assmt/Plan - Assessment Assessment: 1.HYPOTHYRIODISIM. 2.DJD. 3.DEMENTIA. 4.PSYCHOSIS - Plan Plan: CONTINUE ON CURRENT MEDICATION AND . Nutritional Asmnt/Malnutr-PDOC - Dietary Evaluation Malnutrition Findings (Please click <Entered> for more info): Nutritional Asmnt/Malnutrition Start: 05/22/17 13: 57 Text: Status: Complete Freq: Document 05/22/17 13:57 [email or web address] (Rec: 05/22/17 14:01 [email or web address]) Nutritional Asmnt/Malnutrition Patient General Information Nutritional Screening Moderate Risk Diagnosis psychosis NOS Pertinent Medical Hx/Surgical Hx hypothyroidism, dementia, psychosis Subjective Information Pt A&O x 1, not appropriate for interview. PO intake: 100% Current Diet Order/ Nutrition Support mechanical soft, ground Pertinent Medications colace, pepcid, iron, folate, synthroid, MOM, Pertinent Labs (05/17) alk phos: 170 Nutritional Hx/Data Height 1.68 m Height (Calculated Centimeters) 167.6 Current Weight (lbs) 72.575 kg Weight (Calculated Kilograms) 72.6 Weight (Calculated Grams) 62515.8 [place] Body Weight 142 % [place] Body Weight 113 Body Mass Index (BMI) 25.8 GI Symptoms GI Symptoms None Last BM 05/21 Difficult in: Chewing Skin Integrity/Comment: intact, no edema Current %PO Good (75-100%) Estimated Nutritional Goals BEE in Kcals: Using Current wt Calories/Kcals/Kg 25-30 Kcals Calculated 2469-4436 Protein: Using Current wt Protein g/k Protein Calculated 73 Fluid: ml 8070-6735 (1 ml/kcal) Nutritional Problem 1. Problem Problem none at this time Etiology n/a Signs/Symptoms: n/a Malnutrition Alert Is there a minimum of two criteria No selected? Query Text:Check all the applicable criteria. A minimum of two criteria are recommended for diagnosis of either severe or non-severe malnutrition. Malnutrition Related to Morbid Obesity Malnutrition related to morbid obesity No Intervention/Recommendation Comments Continue mechanical soft, ground diet Expected Outcomes/Goals Expected Outcomes/Goals goal: PO intake >50% monitor wt, labs, skin, PO intake
--- NOTE | 2017-05-28 23:10 | Progress Notes ---
DATE: 05/28/2017 SUBJECTIVE: Case was discussed with staff of the patient, reviewed records. The patient continues to be unpredictable and impulsive, having episodes of acting out behavior, yelling and screaming. Continues to have poor insight. Unable to make safe plan for self-care. Continues to need redirection. I did order to check her Depakote level and it was 12.1 on 05/17/2017, increased up to 60.1 that was yesterday, which is within acceptable therapeutic range, so we will give more time for the medication to work. No side effects with the medication, no sedation, no nausea, no extrapyramidal symptoms. We will continue to work with the patient in group therapy, milieu therapy, adjust medications and also she has a chemistry panel that shows high carbon dioxide and low total protein and alkaline phosphatase is high at 170. The rest within normal range. TSH within normal range. She have a CBC shows low hematocrit, but hemoglobin within normal range. She has high monocyte. The rest is within normal range. We will continue the patient in group therapy and adjust medication as needed. JOB# [id number]
[2017-05-29] MEDS: Levothyroxine 0.05 Mg Tab PO SCH (06:38)
[2017-05-29] MEDS: Ferrous Sulfate 325 MG TAB PO SCH (08:43)
[2017-05-29] MEDS: Multivitamin w/ Minerals Tab PO SCH (08:43)
--- NOTE | 2017-05-29 21:04 | Internal Medicine Prog Note ---
Internal Medicine Subjective - Subjective Service Date: 05/29/17 Patient seen and examined:: with staff Patient is:: verbal, in bed, talking Per staff patient has:: no adverse event Internal Medicine Objective - Results Result Diagrams: 05/17/17 21:21 05/17/17 21:21 Recent Labs: Laboratory Last Values WBC 7.8 Th/cmm (4.8-10.8) 05/17/17 21:21 RBC 4.26 Mil/cmm (3.80-5.10) 05/17/17 21:21 Hgb 12.3 gm/dL (12-16) 05/17/17 21:21 Hct 36.3 % (41.0-60) L 05/17/17 21:21 MCV 85.2 fl (81-100) 05/17/17 21:21 MCH 28.8 pg (27.0-31.0) 05/17/17 21: MCHC Differential 33.9 pg (28.0-36.0) 05/17/17 21:21 RDW 15.4 % (11.5-20.0) 05/17/17 21:21 Plt Count 266 Th/cmm (150-400) D 05/17/17 21:21 MPV 7.9 fl 05/17/17 21:21 Neutrophils % 49.6 % (40.0-80.0) 05/17/17 21:21 Lymphocytes % 37.9 % (20.0-50.0) 05/17/17 21:21 Monocytes % 10.3 % (2.0-10.0) H 05/17/17 21:21 Eosinophils % 1.9 % (0.0-5.0) 05/17/17 21:21 Basophils % 0.3 % (0.0-2.0) 05/17/17 21:21 Sodium 136 mEq/L (136-145) 05/17/17 21:21 Potassium 4.2 mEq/L (3.5-5.1) 05/17/17 21:21 Chloride 99 mEq/L (98-107) 05/17/17 21:21 Carbon Dioxide 32.4 mEq/L (21.0-31.0) H 05/17/17 21:21 Anion Gap 8.8 (7.0-16.0) 05/17/17 21:21 BUN 14 mg/dL (7-25) 05/17/17 21:21 Creatinine 0.7 mg/dL (0.6-1.2) 05/17/17 21:21 Est GFR ( Amer) > 60.0 ml/min (>90) 05/17/17 21:21 Est GFR (Non-Af Amer) > 60.0 ml/min 05/17/17 21:21 BUN/Creatinine Ratio 20.0 05/17/17 21:21 Glucose 75 mg/dL (70-105) 05/17/17 21:21 Calcium 9.7 mg/dL (8.6-10.3) 05/17/17 21:21 Total Bilirubin 0.2 mg/dL (0.3-1.0) L 05/17/17 21:21 AST 13 U/L (13-39) 05/17/17 21:21 ALT 10 U/L (7-52) 05/17/17 21:21 Alkaline Phosphatase 170 U/L (34-104) H 05/17/17 21:21 Total Protein 6.8 gm/dL (6.0-8.3) 05/17/17 21:21 Albumin 3.9 gm/dL (3.7-5.3) 05/17/17 21:21 Globulin 2.9 gm/dL 05/17/17 21:21 Albumin/Globulin Ratio 1.3 (1.0-1.8) 05/17/17 21:21 TSH 5.60 uIU/ml (0.34-5.60) 05/17/17 21:21 Valproic Acid 60.1 ug/mL (50.0-100.0) 05/27/17 13:20 - Physical Exam Vitals and I&O: Vital Signs Temp 98.6 F 05/29/17 16:40 Pulse 91 05/29/17 16:40 Resp 20 05/29/17 16:40 BP 141/66 05/29/17 16:40 Pulse Ox 96 05/29/17 16:40 Intake & Output 05/29/17 05/29/17 05/30/17 06:59 18:59 06:59 Intake Total 250 1420 Balance 250 1420 Intake: Oral 250 1420 Other: # Voids 3 3 # Bowel Movements 0 0 Active Medications: Current Medications Acetaminophen (Tylenol) 650 mg PO Q4HR PRN PRN Reason: Pain or Fever >101 Stop: 07/16/17 23:21 Chlorpromazine (Thorazine) 100 mg PO BID [facility] PRN Reason: Protocol Stop: 07/28/17 08:59 Last Admin: 05/29/17 18:29 Dose: 100 mg Clonazepam (Klonopin) 2 mg PO BID [facility] PRN Reason: Protocol Stop: 07/17/17 08:59 Last Admin: 05/29/17 18:29 Dose: 2 mg Docusate Sodium (Colace) 100 mg PO BID [facility] Stop: 07/17/17 08:59 Last Admin: 05/29/17 18:34 Dose: Not Given Famotidine (Pepcid) 20 mg PO DAILY [facility] Stop: 07/17/17 08:59 Last Admin: 05/29/17 08:42 Dose: 20 mg Ferrous Sulfate (Iron) 325 mg PO DAILY [facility] Stop: 07/17/17 08:59 Last Admin: 05/29/17 08:43 Dose: 325 mg Folic Acid (Folate) 1 mg PO DAILY [facility] Stop: 07/17/17 08:59 Last Admin: 05/29/17 08:43 Dose: 1 mg Haloperidol (Haldol) 10 mg PO TID [facility] PRN Reason: Protocol Stop: 07/17/17 08:59 Last Admin: 05/29/17 18:30 Dose: Not Given Levothyroxine Sodium (Synthroid) 0.05 mg PO QDAC [facility] Stop: 07/17/17 07:29 Last Admin: 05/29/17 06:38 Dose: 0.05 mg Magnesium Hydroxide (Milk Of Magnesia) 30 ml PO DAILY PRN PRN Reason: Constipation Stop: 07/16/17 23:21 Quetiapine Fumarate (Seroquel) 400 mg PO BID [facility] PRN Reason: Protocol Stop: 07/17/17 08:59 Last Admin: 05/29/17 18:29 Dose: 400 mg Valproate Sodium (Depakene) 500 mg PO BID [facility] Stop: 07/17/17 08:59 Last Admin: 05/29/17 18:28 Dose: 500 mg Valproate Sodium (Depakene) 1,000 mg PO HS [facility] Stop: 07/23/17 07:03 Last Admin: 05/28/17 21:02 Dose: 1,000 mg General: weak, demented HEENT: NC/AT, PERRLA, EOMI, anicteric sclerae, throat clear Neck: Supple, No JVD, No thyromegaly, No LAD Lungs: CTAB Cardiovascular: RRR, Normal S1, Normal S2, without murmur Abdomen: soft, non-tender, non-distended Extremities: clear Neurological: no change - Procedures Procedures: Procedures Procedure Code Date INDIVID PSYCHOTHERAP NEC 94.39 06/08/08 OTHER GROUP THERAPY 94.44 06/08/08 Internal Medicine Assmt/Plan - Assessment Assessment: 1.HYPOTHYRIODISIM. 2.DJD. 3.DEMENTIA. 4.PSYCHOSIS - Plan Plan: CONTINUE ON CURRENT MEDICATION AND . Nutritional Asmnt/Malnutr-PDOC - Dietary Evaluation Malnutrition Findings (Please click <Entered> for more info): Nutritional Asmnt/Malnutrition Start: 05/22/17 13: 57 Text: Status: Complete Freq: Document 05/22/17 13:57 [email or web address] (Rec: 05/22/17 14:01 [email or web address]) Nutritional Asmnt/Malnutrition Patient General Information Nutritional Screening Moderate Risk Diagnosis psychosis NOS Pertinent Medical Hx/Surgical Hx hypothyroidism, dementia, psychosis Subjective Information Pt A&O x 1, not appropriate for interview. PO intake: 100% Current Diet Order/ Nutrition Support mechanical soft, ground Pertinent Medications colace, pepcid, iron, folate, synthroid, MOM, Pertinent Labs (05/17) alk phos: 170 Nutritional Hx/Data Height 1.68 m Height (Calculated Centimeters) 167.6 Current Weight (lbs) 72.575 kg Weight (Calculated Kilograms) 72.6 Weight (Calculated Grams) 23586.8 [place] Body Weight 142 % [place] Body Weight 113 Body Mass Index (BMI) 25.8 GI Symptoms GI Symptoms None Last BM 05/21 Difficult in: Chewing Skin Integrity/Comment: intact, no edema Current %PO Good (75-100%) Estimated Nutritional Goals BEE in Kcals: Using Current wt Calories/Kcals/Kg 25-30 Kcals Calculated 4133-8946 Protein: Using Current wt Protein g/k Protein Calculated 73 Fluid: ml 4839-4481 (1 ml/kcal) Nutritional Problem 1. Problem Problem none at this time Etiology n/a Signs/Symptoms: n/a Malnutrition Alert Is there a minimum of two criteria No selected? Query Text:Check all the applicable criteria. A minimum of two criteria are recommended for diagnosis of either severe or non-severe malnutrition. Malnutrition Related to Morbid Obesity Malnutrition related to morbid obesity No Intervention/Recommendation Comments Continue mechanical soft, ground diet Expected Outcomes/Goals Expected Outcomes/Goals goal: PO intake >50% monitor wt, labs, skin, PO intake
--- NOTE | 2017-05-29 23:13 | Progress Notes ---
DATE: 05/29/2017 SUBJECTIVE: Case was discussed with staff of the patient, reviewed records early this morning. She is already in the observation room. She is acting out. She is yelling and screaming. She is still unpredictable, impulsive, continues to need redirection, very easily agitated and hard to redirect, impulsive, unable to carry on a conversation. PLAN: I will be increasing her to Thorazine 100 mg twice a day. We will continue to work with the patient in group therapy, milieu therapy, adjust medication as needed. JOB# [id number]
[2017-05-30] MEDS: Levothyroxine 0.05 Mg Tab PO SCH (06:39)
[2017-05-30] MEDS: Multivitamin w/ Minerals Tab PO SCH (08:18)
[2017-05-30] MEDS: Ferrous Sulfate 325 MG TAB PO SCH (08:19)
--- NOTE | 2017-05-30 15:56 | Internal Medicine Prog Note ---
Internal Medicine Subjective - Subjective Service Date: 05/30/17 Patient seen and examined:: with staff (she feels well) Patient is:: verbal, in bed, talking Per staff patient has:: no adverse event Internal Medicine Objective - Results Result Diagrams: 05/17/17 21:21 05/17/17 21:21 Recent Labs: Laboratory Last Values WBC 7.8 Th/cmm (4.8-10.8) 05/17/17 21:21 RBC 4.26 Mil/cmm (3.80-5.10) 05/17/17 21:21 Hgb 12.3 gm/dL (12-16) 05/17/17 21:21 Hct 36.3 % (41.0-60) L 05/17/17 21:21 MCV 85.2 fl (81-100) 05/17/17 21:21 MCH 28.8 pg (27.0-31.0) 05/17/17 21: MCHC Differential 33.9 pg (28.0-36.0) 05/17/17 21:21 RDW 15.4 % (11.5-20.0) 05/17/17 21:21 Plt Count 266 Th/cmm (150-400) D 05/17/17 21:21 MPV 7.9 fl 05/17/17 21:21 Neutrophils % 49.6 % (40.0-80.0) 05/17/17 21:21 Lymphocytes % 37.9 % (20.0-50.0) 05/17/17 21: Monocytes % 10.3 % (2.0-10.0) H 05/17/17 21:21 Eosinophils % 1.9 % (0.0-5.0) 05/17/17 21:21 Basophils % 0.3 % (0.0-2.0) 05/17/17 21:21 Sodium 136 mEq/L (136-145) 05/17/17 21:21 Potassium 4.2 mEq/L (3.5-5.1) 05/17/17 21:21 Chloride 99 mEq/L (98-107) 05/17/17 21:21 Carbon Dioxide 32.4 mEq/L (21.0-31.0) H 05/17/17 21:21 Anion Gap 8.8 (7.0-16.0) 05/17/17 21:21 BUN 14 mg/dL (7-25) 05/17/17 21:21 Creatinine 0.7 mg/dL (0.6-1.2) 05/17/17 21:21 Est GFR ( Amer) > 60.0 ml/min (>90) 05/17/17 21:21 Est GFR (Non-Af Amer) > 60.0 ml/min 05/17/17 21:21 BUN/Creatinine Ratio 20.0 05/17/17 21:21 Glucose 75 mg/dL (70-105) 05/17/17 21:21 Calcium 9.7 mg/dL (8.6-10.3) 05/17/17 21:21 Total Bilirubin 0.2 mg/dL (0.3-1.0) L 05/17/17 21:21 AST 13 U/L (13-39) 05/17/17 21:21 ALT 10 U/L (7-52) 05/17/17 21:21 Alkaline Phosphatase 170 U/L (34-104) H 05/17/17 21:21 Total Protein 6.8 gm/dL (6.0-8.3) 05/17/17 21:21 Albumin 3.9 gm/dL (3.7-5.3) 05/17/17 21:21 Globulin 2.9 gm/dL 05/17/17 21:21 Albumin/Globulin Ratio 1.3 (1.0-1.8) 05/17/17 21:21 TSH 5.60 uIU/ml (0.34-5.60) 05/17/17 21:21 Valproic Acid 60.1 ug/mL (50.0-100.0) 05/27/17 13:20 - Physical Exam Vitals and I&O: Vital Signs Temp 97.8 F 05/30/17 06:44 Pulse 98 05/30/17 06:44 Resp 20 05/30/17 06:44 BP 136/88 05/30/17 06:44 Pulse Ox 98 05/30/17 06:44 Intake & Output 05/29/17 05/30/17 05/30/17 18:59 06:59 18:59 Intake Total 1420 120 Balance 1420 120 Intake: Oral 1420 120 Other: # Voids 3 3 # Bowel Movements 0 Active Medications: Current Medications Acetaminophen (Tylenol) 650 mg PO Q4HR PRN PRN Reason: Pain or Fever >101 Stop: 07/16/17 23:21 Chlorpromazine (Thorazine) 100 mg PO BID [facility] PRN Reason: Protocol Stop: 07/28/17 08:59 Last Admin: 05/30/17 08:19 Dose: 100 mg Clonazepam (Klonopin) 2 mg PO BID [facility] PRN Reason: Protocol Stop: 07/17/17 08:59 Last Admin: 05/30/17 08:18 Dose: 2 mg Docusate Sodium (Colace) 100 mg PO BID [facility] Stop: 07/17/17 08:59 Last Admin: 05/30/17 08:21 Dose: 100 mg Famotidine (Pepcid) 20 mg PO DAILY [facility] Stop: 07/17/17 08:59 Last Admin: 05/30/17 08:19 Dose: 20 mg Ferrous Sulfate (Iron) 325 mg PO DAILY [facility] Stop: 07/17/17 08:59 Last Admin: 05/30/17 08:19 Dose: 325 mg Folic Acid (Folate) 1 mg PO DAILY [facility] Stop: 07/17/17 08:59 Last Admin: 05/30/17 08:19 Dose: 1 mg Haloperidol (Haldol) 10 mg PO TID [facility] PRN Reason: Protocol Stop: 07/17/17 08:59 Last Admin: 05/30/17 14:24 Dose: 10 mg Levothyroxine Sodium (Synthroid) 0.05 mg PO QDAC [facility] Stop: 07/17/17 07:29 Last Admin: 05/30/17 06:39 Dose: 0.05 mg Magnesium Hydroxide (Milk Of Magnesia) 30 ml PO DAILY PRN PRN Reason: Constipation Stop: 07/16/17 23:21 Quetiapine Fumarate (Seroquel) 400 mg PO BID [facility] PRN Reason: Protocol Stop: 07/17/17 08:59 Last Admin: 05/30/17 08:20 Dose: 400 mg Valproate Sodium (Depakene) 500 mg PO BID [facility] Stop: 07/17/17 08:59 Last Admin: 05/30/17 14:24 Dose: Not Given Valproate Sodium (Depakene) 1,000 mg PO HS [facility] Stop: 07/23/17 07:03 Last Admin: 05/29/17 21:59 Dose: 1,000 mg General: weak, demented HEENT: NC/AT, PERRLA, EOMI, anicteric sclerae, throat clear Neck: Supple, No JVD, No thyromegaly, No LAD Lungs: CTAB Cardiovascular: RRR, Normal S1, Normal S2, without murmur Abdomen: soft, non-tender, non-distended Extremities: clear Neurological: no change - Procedures Procedures: Procedures Procedure Code Date INDIVID PSYCHOTHERAP NEC 94.39 06/08/08 OTHER GROUP THERAPY 94.44 06/08/08 Internal Medicine Assmt/Plan - Assessment Assessment: 1.HYPOTHYRIODISIM. 2.DJD. 3.DEMENTIA. 4.PSYCHOSIS - Plan Plan: CONTINUE ON CURRENT MEDICATION AND . Nutritional Asmnt/Malnutr-PDOC - Dietary Evaluation Malnutrition Findings (Please click <Entered> for more info): Nutritional Asmnt/Malnutrition Start: 05/22/17 13: 57 Text: Status: Complete Freq: Document 05/22/17 13:57 [email or web address] (Rec: 05/22/17 14:01 [email or web address]) Nutritional Asmnt/Malnutrition Patient General Information Nutritional Screening Moderate Risk Diagnosis psychosis NOS Pertinent Medical Hx/Surgical Hx hypothyroidism, dementia, psychosis Subjective Information Pt A&O x 1, not appropriate for interview. PO intake: 100% Current Diet Order/ Nutrition Support mechanical soft, ground Pertinent Medications colace, pepcid, iron, folate, synthroid, MOM, Pertinent Labs (05/17) alk phos: 170 Nutritional Hx/Data Height 1.68 m Height (Calculated Centimeters) 167.6 Current Weight (lbs) 72.575 kg Weight (Calculated Kilograms) 72.6 Weight (Calculated Grams) 66032.8 [place] Body Weight 142 % [place] Body Weight 113 Body Mass Index (BMI) 25.8 GI Symptoms GI Symptoms None Last BM 05/21 Difficult in: Chewing Skin Integrity/Comment: intact, no edema Current %PO Good (75-100%) Estimated Nutritional Goals BEE in Kcals: Using Current wt Calories/Kcals/Kg 25-30 Kcals Calculated 1399-8310 Protein: Using Current wt Protein g/k Protein Calculated 73 Fluid: ml 5147-5867 (1 ml/kcal) Nutritional Problem 1. Problem Problem none at this time Etiology n/a Signs/Symptoms: n/a Malnutrition Alert Is there a minimum of two criteria No selected? Query Text:Check all the applicable criteria. A minimum of two criteria are recommended for diagnosis of either severe or non-severe malnutrition. Malnutrition Related to Morbid Obesity Malnutrition related to morbid obesity No Intervention/Recommendation Comments Continue mechanical soft, ground diet Expected Outcomes/Goals Expected Outcomes/Goals goal: PO intake >50% monitor wt, labs, skin, PO intake
--- NOTE | 2017-05-30 22:18 | Progress Notes ---
DATE: 05/30/2017 SUBJECTIVE: Case was discussed with staff of the patient. The patient continues to be acting out, unpredictable, impulsive, needing redirection, continues to have poor insight, easily agitated. She is sleeping well, eating well, tolerating increase in Largactil, with no side effects. She is now on chlorpromazine 100 mg twice a day on a regular basis. No side effects with the medication, no sedation, no nausea, no extrapyramidal symptoms. However, she is still easy to get upset. Continues to need close monitoring, redirection, and she is sleeping better, eating better. She is out of the observation room today; however, unable to carry on a conversation and we will consider outpatient group therapy, milieu therapy, and adjust medications as needed. JOB# [id number]
[2017-05-31] MEDS: Levothyroxine 0.05 Mg Tab PO SCH (06:36)
[2017-05-31] MEDS: Multivitamin w/ Minerals Tab PO SCH (08:32)
[2017-05-31] MEDS: Ferrous Sulfate 325 MG TAB PO SCH (08:32)
[2017-05-31] MEDS ORDERED: chlorproMAZINE 25 mg/mL 2mL Amp ONE (13:18)
[2017-05-31] MEDS ORDERED: chlorproMAZINE 25 mg/mL 2mL Amp IM ONE (13:20)
[2017-05-31] MEDS ORDERED: chlorproMAZINE 25 mg/mL 2mL Amp IM SCH (21:00)
--- NOTE | 2017-05-31 21:20 | Internal Medicine Prog Note ---
Internal Medicine Subjective - Subjective Service Date: 05/31/17 Patient seen and examined:: with staff Patient is:: verbal, in bed, talking Per staff patient has:: no adverse event Internal Medicine Objective - Results Result Diagrams: 05/17/17 21:21 05/17/17 21:21 Recent Labs: Laboratory Last Values WBC 7.8 Th/cmm (4.8-10.8) 05/17/17 21:21 RBC 4.26 Mil/cmm (3.80-5.10) 05/17/17 21:21 Hgb 12.3 gm/dL (12-16) 05/17/17 21:21 Hct 36.3 % (41.0-60) L 05/17/17 21:21 MCV 85.2 fl (81-100) 05/17/17 21:21 MCH 28.8 pg (27.0-31.0) 05/17/17 21: MCHC Differential 33.9 pg (28.0-36.0) 05/17/17 21:21 RDW 15.4 % (11.5-20.0) 05/17/17 21:21 Plt Count 266 Th/cmm (150-400) D 05/17/17 21:21 MPV 7.9 fl 05/17/17 21:21 Neutrophils % 49.6 % (40.0-80.0) 05/17/17 21:21 Lymphocytes % 37.9 % (20.0-50.0) 05/17/17 21:21 Monocytes % 10.3 % (2.0-10.0) H 05/17/17 21:21 Eosinophils % 1.9 % (0.0-5.0) 05/17/17 21:21 Basophils % 0.3 % (0.0-2.0) 05/17/17 21:21 Sodium 136 mEq/L (136-145) 05/17/17 21:21 Potassium 4.2 mEq/L (3.5-5.1) 05/17/17 21:21 Chloride 99 mEq/L (98-107) 05/17/17 21:21 Carbon Dioxide 32.4 mEq/L (21.0-31.0) H 05/17/17 21:21 Anion Gap 8.8 (7.0-16.0) 05/17/17 21:21 BUN 14 mg/dL (7-25) 05/17/17 21:21 Creatinine 0.7 mg/dL (0.6-1.2) 05/17/17 21:21 Est GFR ( Amer) > 60.0 ml/min (>90) 05/17/17 21:21 Est GFR (Non-Af Amer) > 60.0 ml/min 05/17/17 21:21 BUN/Creatinine Ratio 20.0 05/17/17 21:21 Glucose 75 mg/dL (70-105) 05/17/17 21:21 Calcium 9.7 mg/dL (8.6-10.3) 05/17/17 21:21 Total Bilirubin 0.2 mg/dL (0.3-1.0) L 05/17/17 21:21 AST 13 U/L (13-39) 05/17/17 21:21 ALT 10 U/L (7-52) 05/17/17 21:21 Alkaline Phosphatase 170 U/L (34-104) H 05/17/17 21:21 Total Protein 6.8 gm/dL (6.0-8.3) 05/17/17 21:21 Albumin 3.9 gm/dL (3.7-5.3) 05/17/17 21:21 Globulin 2.9 gm/dL 05/17/17 21:21 Albumin/Globulin Ratio 1.3 (1.0-1.8) 05/17/17 21:21 TSH 5.60 uIU/ml (0.34-5.60) 05/17/17 21:21 Valproic Acid 60.1 ug/mL (50.0-100.0) 05/27/17 13:20 - Physical Exam Vitals and I&O: Vital Signs Temp 97.4 F 05/31/17 18:13 Pulse 90 05/31/17 18:13 Resp 20 05/31/17 18:13 BP 142/74 05/31/17 18:13 Pulse Ox 98 05/31/17 18:13 Intake & Output 05/31/17 05/31/17 06/01/17 06:59 18:59 06:59 Intake Total 500 1500 Balance 500 1500 Intake: Oral 500 1500 Other: # Voids 3 4 # Bowel Movements 0 Active Medications: Current Medications Acetaminophen (Tylenol) 650 mg PO Q4HR PRN PRN Reason: Pain or Fever >101 Stop: 07/16/17 23:21 Chlorpromazine (Thorazine) 100 mg PO TID [facility] PRN Reason: Protocol Stop: 07/30/17 20:59 Clonazepam (Klonopin) 2 mg PO BID [facility] PRN Reason: Protocol Stop: 07/17/17 08:59 Last Admin: 05/31/17 16:28 Dose: 2 mg Docusate Sodium (Colace) 100 mg PO BID [facility] Stop: 07/17/17 08:59 Last Admin: 05/31/17 16:28 Dose: 100 mg Famotidine (Pepcid) 20 mg PO DAILY [facility] Stop: 07/17/17 08:59 Last Admin: 05/31/17 08:31 Dose: 20 mg Ferrous Sulfate (Iron) 325 mg PO DAILY [facility] Stop: 07/17/17 08:59 Last Admin: 05/31/17 08:32 Dose: 325 mg Folic Acid (Folate) 1 mg PO DAILY [facility] Stop: 07/17/17 08:59 Last Admin: 05/31/17 08:32 Dose: 1 mg Haloperidol (Haldol) 10 mg PO TID [facility] PRN Reason: Protocol Stop: 07/17/17 08:59 Last Admin: 05/31/17 13:00 Dose: 10 mg Levothyroxine Sodium (Synthroid) 0.05 mg PO QDAC [facility] Stop: 07/17/17 07:29 Last Admin: 05/31/17 06:36 Dose: 0.05 mg Magnesium Hydroxide (Milk Of Magnesia) 30 ml PO DAILY PRN PRN Reason: Constipation Stop: 07/16/17 23:21 Quetiapine Fumarate (Seroquel) 400 mg PO BID [facility] PRN Reason: Protocol Stop: 07/17/17 08:59 Last Admin: 05/31/17 16:28 Dose: 400 mg Valproate Sodium (Depakene) 500 mg PO BID [facility] Stop: 07/17/17 08:59 Last Admin: 05/31/17 16:28 Dose: 500 mg Valproate Sodium (Depakene) 1,000 mg PO HS [facility] Stop: 07/23/17 07:03 Last Admin: 05/30/17 21:17 Dose: 1,000 mg General: weak, demented HEENT: NC/AT, PERRLA, EOMI, anicteric sclerae, throat clear Neck: Supple, No JVD, No thyromegaly, No LAD Lungs: CTAB Cardiovascular: RRR, Normal S1, Normal S2, without murmur Abdomen: soft, non-tender, non-distended Extremities: clear Neurological: no change - Procedures Procedures: Procedures Procedure Code Date INDIVID PSYCHOTHERAP NEC 94.39 06/08/08 OTHER GROUP THERAPY 94.44 06/08/08 Internal Medicine Assmt/Plan - Assessment Assessment: 1.HYPOTHYRIODISIM. 2.DJD. 3.DEMENTIA. 4.PSYCHOSIS - Plan Plan: CONTINUE ON CURRENT MEDICATION AND . Nutritional Asmnt/Malnutr-PDOC - Dietary Evaluation Malnutrition Findings (Please click <Entered> for more info): Nutritional Asmnt/Malnutrition Start: 05/22/17 13: 57 Text: Status: Complete Freq: Document 05/22/17 13:57 [email or web address] (Rec: 05/22/17 14:01 [email or web address]) Nutritional Asmnt/Malnutrition Patient General Information Nutritional Screening Moderate Risk Diagnosis psychosis NOS Pertinent Medical Hx/Surgical Hx hypothyroidism, dementia, psychosis Subjective Information Pt A&O x 1, not appropriate for interview. PO intake: 100% Current Diet Order/ Nutrition Support mechanical soft, ground Pertinent Medications colace, pepcid, iron, folate, synthroid, MOM, Pertinent Labs (05/17) alk phos: 170 Nutritional Hx/Data Height 1.68 m Height (Calculated Centimeters) 167.6 Current Weight (lbs) 72.575 kg Weight (Calculated Kilograms) 72.6 Weight (Calculated Grams) 06862.8 [place] Body Weight 142 % [place] Body Weight 113 Body Mass Index (BMI) 25.8 GI Symptoms GI Symptoms None Last BM 05/21 Difficult in: Chewing Skin Integrity/Comment: intact, no edema Current %PO Good (75-100%) Estimated Nutritional Goals BEE in Kcals: Using Current wt Calories/Kcals/Kg 25-30 Kcals Calculated 7427-5624 Protein: Using Current wt Protein g/k Protein Calculated 73 Fluid: ml 1040-4417 (1 ml/kcal) Nutritional Problem 1. Problem Problem none at this time Etiology n/a Signs/Symptoms: n/a Malnutrition Alert Is there a minimum of two criteria No selected? Query Text:Check all the applicable criteria. A minimum of two criteria are recommended for diagnosis of either severe or non-severe malnutrition. Malnutrition Related to Morbid Obesity Malnutrition related to morbid obesity No Intervention/Recommendation Comments Continue mechanical soft, ground diet Expected Outcomes/Goals Expected Outcomes/Goals goal: PO intake >50% monitor wt, labs, skin, PO intake
--- NOTE | 2017-05-31 23:28 | Progress Notes ---
DATE: 05/31/2017 SUBJECTIVE: Case was discussed with staff of the patient, reviewed records. The patient continues to be easily agitated, yelling and screaming; however, there has been some improvement in that she is not screaming as much. She has been easier to redirect. Since I increased her Thorazine 50 to 100 mg twice a day, she is sleeping better, eating better. No side effects with the medication, no sedation, no nausea, no extrapyramidal symptoms. She continues, however, to be unpredictable, impulsive and her improvement started only in the last day and we may need to continue to adjust her medication and also working on discharge plan. PLAN: We will continue outpatient group therapy, milieu therapy, adjust medication as needed. JOB# [id number]
[2017-06-01] MEDS: Levothyroxine 0.05 Mg Tab PO SCH (06:51)
[2017-06-01] MEDS: Ferrous Sulfate 325 MG TAB PO SCH (10:17)
[2017-06-01] MEDS: Multivitamin w/ Minerals Tab PO SCH (10:18)
--- NOTE | 2017-06-01 19:12 | Progress Notes ---
DATE: This is Dr. Tello covering for Dr. Hamilton. The patient is a 57-year-old female with developmental delay, psychotic and aggressive behavior. SUBJECTIVE: Nursing staff reported the patient continues to intermittently screaming, yelling with no redirection. Today on [id number] evaluation, the patient presents extremely disorganized, screaming and yelling and psychiatric distraught and she also appeared to be hallucinating. MENTAL STATUS EXAMINATION: Distraught, overwhelmed, hearing voices, thought blocking, poor insight, judgment control verbally and also throwing items. ASSESSMENT AND PLAN: The patient is a 57-year-old female who presents to very bizarre, disorganized. She is on multiple antipsychotics and which she reflects her refractory treatment. It is unclear at this point, which medications being cross titrated to others. She is on 3 different antipsychotics the Depakote and Klonopin at 2 mg p.o. t.i.d. At this point, we will hold off on increasing either medication has she may be experiencing some minor side effects of the medications, further evaluation is needed. In the meantime, we will keep the Klonopin 1 mg to help alleviate the anxiety she is experiencing and we obtain more collateral information and address the multiple antipsychotics with the primary psychiatrist. [facility]# [id number]
--- NOTE | 2017-06-01 19:42 | Internal Medicine Prog Note ---
Internal Medicine Subjective - Subjective Service Date: 06/01/17 Patient seen and examined:: with staff Patient is:: verbal, in bed, talking Per staff patient has:: no adverse event Internal Medicine Objective - Results Result Diagrams: 05/17/17 21:21 05/17/17 21:21 Recent Labs: Laboratory Last Values WBC 7.8 Th/cmm (4.8-10.8) 05/17/17 21:21 RBC 4.26 Mil/cmm (3.80-5.10) 05/17/17 21:21 Hgb 12.3 gm/dL (12-16) 05/17/17 21:21 Hct 36.3 % (41.0-60) L 05/17/17 21:21 MCV 85.2 fl (81-100) 05/17/17 21:21 MCH 28.8 pg (27.0-31.0) 05/17/17 21: MCHC Differential 33.9 pg (28.0-36.0) 05/17/17 21:21 RDW 15.4 % (11.5-20.0) 05/17/17 21:21 Plt Count 266 Th/cmm (150-400) D 05/17/17 21:21 MPV 7.9 fl 05/17/17 21:21 Neutrophils % 49.6 % (40.0-80.0) 05/17/17 21:21 Lymphocytes % 37.9 % (20.0-50.0) 05/17/17 21:21 Monocytes % 10.3 % (2.0-10.0) H 05/17/17 21:21 Eosinophils % 1.9 % (0.0-5.0) 05/17/17 21:21 Basophils % 0.3 % (0.0-2.0) 05/17/17 21:21 Sodium 136 mEq/L (136-145) 05/17/17 21:21 Potassium 4.2 mEq/L (3.5-5.1) 05/17/17 21:21 Chloride 99 mEq/L (98-107) 05/17/17 21:21 Carbon Dioxide 32.4 mEq/L (21.0-31.0) H 05/17/17 21:21 Anion Gap 8.8 (7.0-16.0) 05/17/17 21:21 BUN 14 mg/dL (7-25) 05/17/17 21:21 Creatinine 0.7 mg/dL (0.6-1.2) 05/17/17 21:21 Est GFR ( Amer) > 60.0 ml/min (>90) 05/17/17 21:21 Est GFR (Non-Af Amer) > 60.0 ml/min 05/17/17 21:21 BUN/Creatinine Ratio 20.0 05/17/17 21:21 Glucose 75 mg/dL (70-105) 05/17/17 21:21 Calcium 9.7 mg/dL (8.6-10.3) 05/17/17 21:21 Total Bilirubin 0.2 mg/dL (0.3-1.0) L 05/17/17 21:21 AST 13 U/L (13-39) 05/17/17 21:21 ALT 10 U/L (7-52) 05/17/17 21:21 Alkaline Phosphatase 170 U/L (34-104) H 05/17/17 21:21 Total Protein 6.8 gm/dL (6.0-8.3) 05/17/17 21:21 Albumin 3.9 gm/dL (3.7-5.3) 05/17/17 21:21 Globulin 2.9 gm/dL 05/17/17 21:21 Albumin/Globulin Ratio 1.3 (1.0-1.8) 05/17/17 21:21 TSH 5.60 uIU/ml (0.34-5.60) 05/17/17 21:21 Valproic Acid 60.1 ug/mL (50.0-100.0) 05/27/17 13:20 - Physical Exam Vitals and I&O: Vital Signs Temp 97.6 F 06/01/17 17:00 Pulse 89 06/01/17 17:00 Resp 20 06/01/17 17:00 BP 148/82 06/01/17 17:00 Pulse Ox 98 06/01/17 17:00 Intake & Output 06/01/17 06/01/17 06/02/17 06:59 18:59 06:59 Intake Total 1500 Balance 1500 Intake: Oral 1500 Other: # Voids 4 # Bowel Movements 1 Stool Characteristics Formed Active Medications: Current Medications Acetaminophen (Tylenol) 650 mg PO Q4HR PRN PRN Reason: Pain or Fever >101 Stop: 07/16/17 23:21 Chlorpromazine (Thorazine) 100 mg PO TID [facility] PRN Reason: Protocol Stop: 07/30/17 20:59 Last Admin: 06/01/17 13:15 Dose: 100 mg Clonazepam (Klonopin) 2 mg PO BID [facility] PRN Reason: Protocol Stop: 07/17/17 08:59 Last Admin: 06/01/17 16:37 Dose: 2 mg Docusate Sodium (Colace) 100 mg PO BID [facility] Stop: 07/17/17 08:59 Last Admin: 06/01/17 16:37 Dose: 100 mg Famotidine (Pepcid) 20 mg PO DAILY [facility] Stop: 07/17/17 08:59 Last Admin: 06/01/17 10:16 Dose: 20 mg Ferrous Sulfate (Iron) 325 mg PO DAILY [facility] Stop: 07/17/17 08:59 Last Admin: 06/01/17 10:17 Dose: 325 mg Folic Acid (Folate) 1 mg PO DAILY [facility] Stop: 07/17/17 08:59 Last Admin: 06/01/17 10:18 Dose: 1 mg Haloperidol (Haldol) 10 mg PO TID [facility] PRN Reason: Protocol Stop: 07/17/17 08:59 Last Admin: 06/01/17 13:14 Dose: 10 mg Levothyroxine Sodium (Synthroid) 0.05 mg PO QDAC [facility] Stop: 07/17/17 07:29 Last Admin: 06/01/17 06:51 Dose: 0.05 mg Magnesium Hydroxide (Milk Of Magnesia) 30 ml PO DAILY [facility]N PRN Reason: Constipation Stop: 07/16/17 23:21 Quetiapine Fumarate (Seroquel) 400 mg PO BID [facility] PRN Reason: Protocol Stop: 07/17/17 08:59 Last Admin: 06/01/17 16:38 Dose: 400 mg Valproate Sodium (Depakene) 500 mg PO BID [facility] Stop: 07/17/17 08:59 Last Admin: 06/01/17 16:37 Dose: 500 mg Valproate Sodium (Depakene) 1,000 mg PO HS [facility] Stop: 07/23/17 07:03 Last Admin: 05/31/17 21:35 Dose: 1,000 mg General: weak, demented HEENT: NC/AT, PERRLA, EOMI, anicteric sclerae, throat clear Neck: Supple, No JVD, No thyromegaly, No LAD Lungs: CTAB Cardiovascular: RRR, Normal S1, Normal S2, without murmur Abdomen: soft, non-tender, non-distended Extremities: clear Neurological: no change - Procedures Procedures: Procedures Procedure Code Date INDIVID PSYCHOTHERAP NEC 94.39 06/08/08 OTHER GROUP THERAPY 94.44 06/08/08 Internal Medicine Assmt/Plan - Assessment Assessment: 1.HYPOTHYRIODISIM. 2.DJD. 3.DEMENTIA. 4.PSYCHOSIS - Plan Plan: CONTINUE ON CURRENT MEDICATION AND . Nutritional Asmnt/Malnutr-PDOC - Dietary Evaluation Malnutrition Findings (Please click <Entered> for more info): Nutritional Asmnt/Malnutrition Start: 05/22/17 13: 57 Text: Status: Complete Freq: Document 05/22/17 13:57 [email or web address] (Rec: 05/22/17 14:01 [email or web address]) Nutritional Asmnt/Malnutrition Patient General Information Nutritional Screening Moderate Risk Diagnosis psychosis NOS Pertinent Medical Hx/Surgical Hx hypothyroidism, dementia, psychosis Subjective Information Pt A&O x 1, not appropriate for interview. PO intake: 100% Current Diet Order/ Nutrition Support mechanical soft, ground Pertinent Medications colace, pepcid, iron, folate, synthroid, MOM, Pertinent Labs (05/17) alk phos: 170 Nutritional Hx/Data Height 1.68 m Height (Calculated Centimeters) 167.6 Current Weight (lbs) 72.575 kg Weight (Calculated Kilograms) 72.6 Weight (Calculated Grams) 74510.8 [place] Body Weight 142 % [place] Body Weight 113 Body Mass Index (BMI) 25.8 GI Symptoms GI Symptoms None Last BM 05/21 Difficult in: Chewing Skin Integrity/Comment: intact, no edema Current %PO Good (75-100%) Estimated Nutritional Goals BEE in Kcals: Using Current wt Calories/Kcals/Kg 25-30 Kcals Calculated 1850-9214 Protein: Using Current wt Protein g/k Protein Calculated 73 Fluid: ml 1412-1039 (1 ml/kcal) Nutritional Problem 1. Problem Problem none at this time Etiology n/a Signs/Symptoms: n/a Malnutrition Alert Is there a minimum of two criteria No selected? Query Text:Check all the applicable criteria. A minimum of two criteria are recommended for diagnosis of either severe or non-severe malnutrition. Malnutrition Related to Morbid Obesity Malnutrition related to morbid obesity No Intervention/Recommendation Comments Continue mechanical soft, ground diet Expected Outcomes/Goals Expected Outcomes/Goals goal: PO intake >50% monitor wt, labs, skin, PO intake
[2017-06-02] MEDS: Levothyroxine 0.05 Mg Tab PO SCH (06:35)
[2017-06-02] MEDS: Multivitamin w/ Minerals Tab PO SCH (09:25)
[2017-06-02] MEDS: Ferrous Sulfate 325 MG TAB PO SCH (09:25)
--- NOTE | 2017-06-02 20:32 | Progress Notes ---
DATE: The patient was seen and evaluated. The patient's chart reviewed. Overnight nursing staff reported the patient continues to be very psychotic, responding heavily on voices and irritable and agitated. Today on [id number] evaluation, the patient is in her room, just starts screaming and yelling nonsensical topics and attempted to engage in conversation, just starts screaming, no, no. MENTAL STATUS EXAMINATION: Delusional, suspicious, paranoid and throwing items. ASSESSMENT AND PLAN: A 57-year-old female who presents still very psychotic, disorganized, multiple antipsychotics reflects the resistant to treatment. She is currently on 3 different antipsychotics and mood stabilizers including Klonopin. At this point, based on the evaluation so far, recommend to consolidate the antipsychotics as much as possible, maybe maximizing the use of Thorazine as Seroquel has been ineffective and with her at this point while titrating her off the Seroquel to reduce the risk of med-med interaction, we will allow the primary psychiatrist's treatment. She will continue following the next week to continue monitoring and evaluating the recent adjustments that she is more knowledgeable in regards to this patient's behavior and also in regards to the patient's baseline and collateral information. JOB# [id number]
--- NOTE | 2017-06-02 20:45 | Internal Medicine Prog Note ---
Internal Medicine Subjective - Subjective Service Date: 06/02/17 Patient seen and examined:: with staff Patient is:: verbal, in bed, talking Per staff patient has:: no adverse event Internal Medicine Objective - Results Result Diagrams: 05/17/17 21:21 05/17/17 21:21 Recent Labs: Laboratory Last Values WBC 7.8 Th/cmm (4.8-10.8) 05/17/17 21:21 RBC 4.26 Mil/cmm (3.80-5.10) 05/17/17 21:21 Hgb 12.3 gm/dL (12-16) 05/17/17 21:21 Hct 36.3 % (41.0-60) L 05/17/17 21:21 MCV 85.2 fl (81-100) 05/17/17 21:21 MCH 28.8 pg (27.0-31.0) 05/17/17 21: MCHC Differential 33.9 pg (28.0-36.0) 05/17/17 21:21 RDW 15.4 % (11.5-20.0) 05/17/17 21:21 Plt Count 266 Th/cmm (150-400) D 05/17/17 21:21 MPV 7.9 fl 05/17/17 21:21 Neutrophils % 49.6 % (40.0-80.0) 05/17/17 21:21 Lymphocytes % 37.9 % (20.0-50.0) 05/17/17 21:21 Monocytes % 10.3 % (2.0-10.0) H 05/17/17 21:21 Eosinophils % 1.9 % (0.0-5.0) 05/17/17 21:21 Basophils % 0.3 % (0.0-2.0) 05/17/17 21:21 Sodium 136 mEq/L (136-145) 05/17/17 21:21 Potassium 4.2 mEq/L (3.5-5.1) 05/17/17 21:21 Chloride 99 mEq/L (98-107) 05/17/17 21:21 Carbon Dioxide 32.4 mEq/L (21.0-31.0) H 05/17/17 21:21 Anion Gap 8.8 (7.0-16.0) 05/17/17 21:21 BUN 14 mg/dL (7-25) 05/17/17 21:21 Creatinine 0.7 mg/dL (0.6-1.2) 05/17/17 21:21 Est GFR ( Amer) > 60.0 ml/min (>90) 05/17/17 21:21 Est GFR (Non-Af Amer) > 60.0 ml/min 05/17/17 21:21 BUN/Creatinine Ratio 20.0 05/17/17 21:21 Glucose 75 mg/dL (70-105) 05/17/17 21:21 Calcium 9.7 mg/dL (8.6-10.3) 05/17/17 21:21 Total Bilirubin 0.2 mg/dL (0.3-1.0) L 05/17/17 21:21 AST 13 U/L (13-39) 05/17/17 21:21 ALT 10 U/L (7-52) 05/17/17 21:21 Alkaline Phosphatase 170 U/L (34-104) H 05/17/17 21:21 Total Protein 6.8 gm/dL (6.0-8.3) 05/17/17 21:21 Albumin 3.9 gm/dL (3.7-5.3) 05/17/17 21:21 Globulin 2.9 gm/dL 05/17/17 21:21 Albumin/Globulin Ratio 1.3 (1.0-1.8) 05/17/17 21:21 TSH 5.60 uIU/ml (0.34-5.60) 05/17/17 21:21 Valproic Acid 60.1 ug/mL (50.0-100.0) 05/27/17 13:20 - Physical Exam Vitals and I&O: Vital Signs Temp 97.4 F 06/02/17 15:51 Pulse 67 06/02/17 15:51 Resp 20 06/02/17 16:21 BP 131/78 06/02/17 15:51 Pulse Ox 94 06/02/17 15:51 Intake & Output 06/02/17 06/02/17 06/03/17 06:59 18:59 06:59 Intake Total 1500 Balance 1500 Intake: Oral 1500 Other: # Voids 4 Stool Characteristics Formed Formed Brown Active Medications: Current Medications Acetaminophen (Tylenol) 650 mg PO Q4HR PRN PRN Reason: Pain or Fever >101 Stop: 07/16/17 23:21 Chlorpromazine (Thorazine) 100 mg PO TID [facility] PRN Reason: Protocol Stop: 07/30/17 20:59 Last Admin: 06/02/17 13:13 Dose: 100 mg Clonazepam (Klonopin) 2 mg PO BID [facility] PRN Reason: Protocol Stop: 07/17/17 08:59 Last Admin: 06/02/17 16:58 Dose: 2 mg Docusate Sodium (Colace) 100 mg PO BID [facility] Stop: 07/17/17 08:59 Last Admin: 06/02/17 16:58 Dose: 100 mg Famotidine (Pepcid) 20 mg PO DAILY [facility] Stop: 07/17/17 08:59 Last Admin: 06/02/17 09:25 Dose: 20 mg Ferrous Sulfate (Iron) 325 mg PO DAILY [facility] Stop: 07/17/17 08:59 Last Admin: 06/02/17 09:25 Dose: 325 mg Folic Acid (Folate) 1 mg PO DAILY [facility] Stop: 07/17/17 08:59 Last Admin: 06/02/17 09:25 Dose: 1 mg Haloperidol (Haldol) 10 mg PO TID [facility] PRN Reason: Protocol Stop: 07/17/17 08:59 Last Admin: 06/02/17 13:13 Dose: 10 mg Levothyroxine Sodium (Synthroid) 0.05 mg PO QDAC [facility] Stop: 07/17/17 07:29 Last Admin: 06/02/17 06:35 Dose: 0.05 mg Magnesium Hydroxide (Milk Of Magnesia) 30 ml PO DAILY PRN PRN Reason: Constipation Stop: 07/16/17 23:21 Quetiapine Fumarate (Seroquel) 400 mg PO BID [facility] PRN Reason: Protocol Stop: 07/17/17 08:59 Last Admin: 06/02/17 16:58 Dose: 400 mg Valproate Sodium (Depakene) 500 mg PO BID [facility] Stop: 07/17/17 08:59 Last Admin: 06/02/17 16:57 Dose: 500 mg Valproate Sodium (Depakene) 1,000 mg PO HS [facility] Stop: 07/23/17 07:03 Last Admin: 06/01/17 21:02 Dose: 1,000 mg General: weak, demented HEENT: NC/AT, PERRLA, EOMI, anicteric sclerae, throat clear Neck: Supple, No JVD, No thyromegaly, No LAD Lungs: CTAB Cardiovascular: RRR, Normal S1, Normal S2, without murmur Abdomen: soft, non-tender, non-distended Extremities: clear Neurological: no change - Procedures Procedures: Procedures Procedure Code Date INDIVID PSYCHOTHERAP NEC 94.39 06/08/08 OTHER GROUP THERAPY 94.44 06/08/08 Internal Medicine Assmt/Plan - Assessment Assessment: 1.HYPOTHYRIODISIM. 2.DJD. 3.DEMENTIA. 4.PSYCHOSIS - Plan Plan: CONTINUE ON CURRENT MEDICATION AND . Nutritional Asmnt/Malnutr-PDOC - Dietary Evaluation Malnutrition Findings (Please click <Entered> for more info): Nutritional Asmnt/Malnutrition Start: 05/22/17 13: 57 Text: Status: Complete Freq: Document 05/22/17 13:57 [email or web address] (Rec: 05/22/17 14:01 [email or web address]) Nutritional Asmnt/Malnutrition Patient General Information Nutritional Screening Moderate Risk Diagnosis psychosis NOS Pertinent Medical Hx/Surgical Hx hypothyroidism, dementia, psychosis Subjective Information Pt A&O x 1, not appropriate for interview. PO intake: 100% Current Diet Order/ Nutrition Support mechanical soft, ground Pertinent Medications colace, pepcid, iron, folate, synthroid, MOM, Pertinent Labs (05/17) alk phos: 170 Nutritional Hx/Data Height 1.68 m Height (Calculated Centimeters) 167.6 Current Weight (lbs) 72.575 kg Weight (Calculated Kilograms) 72.6 Weight (Calculated Grams) 72248.8 [place] Body Weight 142 % [place] Body Weight 113 Body Mass Index (BMI) 25.8 GI Symptoms GI Symptoms None Last BM 05/21 Difficult in: Chewing Skin Integrity/Comment: intact, no edema Current %PO Good (75-100%) Estimated Nutritional Goals BEE in Kcals: Using Current wt Calories/Kcals/Kg 25-30 Kcals Calculated 8994-7891 Protein: Using Current wt Protein g/k Protein Calculated 73 Fluid: ml 4225-9211 (1 ml/kcal) Nutritional Problem 1. Problem Problem none at this time Etiology n/a Signs/Symptoms: n/a Malnutrition Alert Is there a minimum of two criteria No selected? Query Text:Check all the applicable criteria. A minimum of two criteria are recommended for diagnosis of either severe or non-severe malnutrition. Malnutrition Related to Morbid Obesity Malnutrition related to morbid obesity No Intervention/Recommendation Comments Continue mechanical soft, ground diet Expected Outcomes/Goals Expected Outcomes/Goals goal: PO intake >50% monitor wt, labs, skin, PO intake
[2017-06-03] MEDS: Levothyroxine 0.05 Mg Tab PO SCH (06:35)
[2017-06-03] MEDS: Ferrous Sulfate 325 MG TAB PO SCH (08:19)
[2017-06-03] MEDS: Multivitamin w/ Minerals Tab PO SCH (08:22)
--- NOTE | 2017-06-03 19:46 | Internal Medicine Prog Note ---
Internal Medicine Subjective - Subjective Service Date: 06/03/17 Patient seen and examined:: with staff Patient is:: verbal, in bed, talking Per staff patient has:: no adverse event Internal Medicine Objective - Results Result Diagrams: 05/17/17 21:21 05/17/17 21:21 Recent Labs: Laboratory Last Values WBC 7.8 Th/cmm (4.8-10.8) 05/17/17 21:21 RBC 4.26 Mil/cmm (3.80-5.10) 05/17/17 21:21 Hgb 12.3 gm/dL (12-16) 05/17/17 21:21 Hct 36.3 % (41.0-60) L 05/17/17 21:21 MCV 85.2 fl (81-100) 05/17/17 21:21 MCH 28.8 pg (27.0-31.0) 05/17/17 21: MCHC Differential 33.9 pg (28.0-36.0) 05/17/17 21:21 RDW 15.4 % (11.5-20.0) 05/17/17 21:21 Plt Count 266 Th/cmm (150-400) D 05/17/17 21:21 MPV 7.9 fl 05/17/17 21:21 Neutrophils % 49.6 % (40.0-80.0) 05/17/17 21:21 Lymphocytes % 37.9 % (20.0-50.0) 05/17/17 21:21 Monocytes % 10.3 % (2.0-10.0) H 05/17/17 21:21 Eosinophils % 1.9 % (0.0-5.0) 05/17/17 21:21 Basophils % 0.3 % (0.0-2.0) 05/17/17 21:21 Sodium 136 mEq/L (136-145) 05/17/17 21:21 Potassium 4.2 mEq/L (3.5-5.1) 05/17/17 21:21 Chloride 99 mEq/L (98-107) 05/17/17 21:21 Carbon Dioxide 32.4 mEq/L (21.0-31.0) H 05/17/17 21:21 Anion Gap 8.8 (7.0-16.0) 05/17/17 21:21 BUN 14 mg/dL (7-25) 05/17/17 21:21 Creatinine 0.7 mg/dL (0.6-1.2) 05/17/17 21:21 Est GFR ( Amer) > 60.0 ml/min (>90) 05/17/17 21:21 Est GFR (Non-Af Amer) > 60.0 ml/min 05/17/17 21:21 BUN/Creatinine Ratio 20.0 05/17/17 21:21 Glucose 75 mg/dL (70-105) 05/17/17 21:21 Calcium 9.7 mg/dL (8.6-10.3) 05/17/17 21:21 Total Bilirubin 0.2 mg/dL (0.3-1.0) L 05/17/17 21:21 AST 13 U/L (13-39) 05/17/17 21:21 ALT 10 U/L (7-52) 05/17/17 21:21 Alkaline Phosphatase 170 U/L (34-104) H 05/17/17 21:21 Total Protein 6.8 gm/dL (6.0-8.3) 05/17/17 21:21 Albumin 3.9 gm/dL (3.7-5.3) 05/17/17 21:21 Globulin 2.9 gm/dL 05/17/17 21:21 Albumin/Globulin Ratio 1.3 (1.0-1.8) 05/17/17 21:21 TSH 5.60 uIU/ml (0.34-5.60) 05/17/17 21:21 Valproic Acid 60.1 ug/mL (50.0-100.0) 05/27/17 13:20 - Physical Exam Vitals and I&O: Vital Signs Temp 97.8 F 06/03/17 16:06 Pulse 110 06/03/17 16:06 Resp 18 06/03/17 16:06 BP 113/86 06/03/17 16:06 Pulse Ox 97 06/03/17 16:06 Intake & Output 06/03/17 06/03/17 06/04/17 06:59 18:59 06:59 Intake Total 240 900 Balance 240 900 Intake: Oral 240 900 Other: # Voids 1 5 # Bowel Movements 0 Active Medications: Current Medications Acetaminophen (Tylenol) 650 mg PO Q4HR PRN PRN Reason: Pain or Fever >101 Stop: 07/16/17 23:21 Chlorpromazine (Thorazine) 100 mg PO TID [facility] PRN Reason: Protocol Stop: 07/30/17 20:59 Last Admin: 06/03/17 15:03 Dose: 100 mg Clonazepam (Klonopin) 2 mg PO BID [facility] PRN Reason: Protocol Stop: 07/17/17 08:59 Last Admin: 06/03/17 16:22 Dose: 2 mg Docusate Sodium (Colace) 100 mg PO BID [facility] Stop: 07/17/17 08:59 Last Admin: 06/03/17 16:22 Dose: Not Given Famotidine (Pepcid) 20 mg PO DAILY [facility] Stop: 07/17/17 08:59 Last Admin: 06/03/17 08:22 Dose: 20 mg Ferrous Sulfate (Iron) 325 mg PO DAILY [facility] Stop: 07/17/17 08:59 Last Admin: 06/03/17 08:19 Dose: 325 mg Folic Acid (Folate) 1 mg PO DAILY [facility] Stop: 07/17/17 08:59 Last Admin: 06/03/17 08:22 Dose: 1 mg Haloperidol (Haldol) 10 mg PO TID [facility] PRN Reason: Protocol Stop: 07/17/17 08:59 Last Admin: 06/03/17 15:02 Dose: 10 mg Levothyroxine Sodium (Synthroid) 0.05 mg PO QDAC [facility] Stop: 07/17/17 07:29 Last Admin: 06/03/17 06:35 Dose: 0.05 mg Magnesium Hydroxide (Milk Of Magnesia) 30 ml PO DAILY PRN PRN Reason: Constipation Stop: 07/16/17 23:21 Quetiapine Fumarate (Seroquel) 400 mg PO BID [facility] PRN Reason: Protocol Stop: 07/17/17 08:59 Last Admin: 06/03/17 16:22 Dose: 400 mg Valproate Sodium (Depakene) 500 mg PO BID [facility] Stop: 07/17/17 08:59 Last Admin: 06/03/17 16:23 Dose: 500 mg Valproate Sodium (Depakene) 1,000 mg PO HS [facility] Stop: 07/23/17 07:03 Last Admin: 06/02/17 20:39 Dose: 1,000 mg General: weak, demented HEENT: NC/AT, PERRLA, EOMI, anicteric sclerae, throat clear Neck: Supple, No JVD, No thyromegaly, No LAD Lungs: CTAB Cardiovascular: RRR, Normal S1, Normal S2, without murmur Abdomen: soft, non-tender, non-distended Extremities: clear Neurological: no change - Procedures Procedures: Procedures Procedure Code Date INDIVID PSYCHOTHERAP NEC 94.39 06/08/08 OTHER GROUP THERAPY 94.44 06/08/08 Internal Medicine Assmt/Plan - Assessment Assessment: 1.HYPOTHYRIODISIM. 2.DJD. 3.DEMENTIA. 4.PSYCHOSIS - Plan Plan: CONTINUE ON CURRENT MEDICATION AND . Nutritional Asmnt/Malnutr-PDOC - Dietary Evaluation Malnutrition Findings (Please click <Entered> for more info): Nutritional Asmnt/Malnutrition Start: 05/22/17 13: 57 Text: Status: Complete Freq: Document 05/22/17 13:57 [email or web address] (Rec: 05/22/17 14:01 [email or web address]) Nutritional Asmnt/Malnutrition Patient General Information Nutritional Screening Moderate Risk Diagnosis psychosis NOS Pertinent Medical Hx/Surgical Hx hypothyroidism, dementia, psychosis Subjective Information Pt A&O x 1, not appropriate for interview. PO intake: 100% Current Diet Order/ Nutrition Support mechanical soft, ground Pertinent Medications colace, pepcid, iron, folate, synthroid, MOM, Pertinent Labs (05/17) alk phos: 170 Nutritional Hx/Data Height 1.68 m Height (Calculated Centimeters) 167.6 Current Weight (lbs) 72.575 kg Weight (Calculated Kilograms) 72.6 Weight (Calculated Grams) 40410.8 [place] Body Weight 142 % [place] Body Weight 113 Body Mass Index (BMI) 25.8 GI Symptoms GI Symptoms None Last BM 05/21 Difficult in: Chewing Skin Integrity/Comment: intact, no edema Current %PO Good (75-100%) Estimated Nutritional Goals BEE in Kcals: Using Current wt Calories/Kcals/Kg 25-30 Kcals Calculated 5454-6311 Protein: Using Current wt Protein g/k Protein Calculated 73 Fluid: ml 5110-2893 (1 ml/kcal) Nutritional Problem 1. Problem Problem none at this time Etiology n/a Signs/Symptoms: n/a Malnutrition Alert Is there a minimum of two criteria No selected? Query Text:Check all the applicable criteria. A minimum of two criteria are recommended for diagnosis of either severe or non-severe malnutrition. Malnutrition Related to Morbid Obesity Malnutrition related to morbid obesity No Intervention/Recommendation Comments Continue mechanical soft, ground diet Expected Outcomes/Goals Expected Outcomes/Goals goal: PO intake >50% monitor wt, labs, skin, PO intake
--- NOTE | 2017-06-03 23:19 | Progress Notes ---
DATE: 06/03/2017 SUBJECTIVE: Case was discussed with staff of patient and reviewed records. The patient continues to be unpredictable and impulsive, needing redirection. Continues to have poor insight. Continues to be easily agitated, continues to be unable to participate in a meaningful conversation, yelling and screaming at times, not ready to go to a lesser level of care and her medication was increased by me on Saturday, chlorpromazine increased to 100 mg 3 times a day with no side effects, no sedation, no nausea, no extrapyramidal symptoms and I have her on Depakote 500 mg twice a day and 1000 mg at bedtime. Depakote level is within acceptable therapeutic range at 16.1 on 05/27/2017 and no side effects with the medication, no sedation, no nausea, no extrapyramidal symptoms. We will continue outpatient group therapy, milieu therapy, adjust medication as needed. JOB# [id number]
[2017-06-04] MEDS: Levothyroxine 0.05 Mg Tab PO SCH (06:36)
[2017-06-04] MEDS: Multivitamin w/ Minerals Tab PO SCH (08:57)
[2017-06-04] MEDS: Ferrous Sulfate 325 MG TAB PO SCH (08:57)
--- NOTE | 2017-06-04 13:49 | Discharge Summary ---
DATE OF DISCHARGE: 06/04/2017 IDENTIFYING INFORMATION: The patient is a 57-year-old female. HISTORY OF PRESENT ILLNESS: This is was from [place]. She was yelling and screaming, not making sense rambling, yelling at staff. Noncompliant with her medications, had to be medicated on emergency basis. She was very loud, yelling and screaming. The patient with multiple prior admissions to this facility. COURSE IN THE HOSPITAL: The patient was started on medication prior to admission and Dr. Vasques was seen the patient had a chlorpromazine I increased the dose 100 mg 3 times a day, Klonopin 2 mg twice a day and she was on iron, folic acid, Haldol was increased by me to 10 mg 3 times a day. She was also continued on levothyroxine, magnesium, multivitamins, Seroquel increased to 400 mg twice a day and Depakote 500 mg twice a day, 1000 mg at bedtime. The patient progressively got better. She is sleeping well, eating well. No longer acting out, she improved, she was not acting out. We felt she could be discharged to a lesser level of care. She had the Depakote level on 05/27/2017 that was 60.1, which is within acceptable therapeutic range. TSH within normal range. FINAL DIAGNOSES: AXIS I: Psychosis, not otherwise specified. Rule out bipolar disorder, mixed. MEDICAL DIAGNOSES: Deferred to the medical doctor. The patient will be going back to [place] and follow up with the psychiatrist, primary care physician and therapist. [facility]# [id number]
== END 2017-06-04 16:20 | disposition home or self-care (01) | DRG 885 ==
LOC: ER 20:17 → GERO 22:45 → GERO2 05-28 10:06 → GERO 05-28 10:08
PROVIDERS: ADMIT Psychiatry & Neurology Psychiatry; ATTEND Psychiatry & Neurology Psychiatry
DX: F31.60 Bipolar disorder, current episode mixed, unspecified (principal); F79 Unspecified intellectual disabilities; F03.90 Unspecified dementia, unspecified severity, without behavioral disturbance, psychotic disturbance, mood disturbance, and anxiety; F29 Unspecified psychosis not due to a substance or known physiological condition; F39 Unspecified mood [affective] disorder; E03.9 Hypothyroidism, unspecified; M19.90 Unspecified osteoarthritis, unspecified site; Z88.0 Allergy status to penicillin; Z88.8 Allergy status to other drugs, medicaments and biological substances
CPT/HCPCS: 36415-UA; 80053-TC; 80164-TC; 84443-TC; 85025-TC; 93005; G0410; J1200; J1630; J2060; J3230; Q0161; Z7610

== ENCOUNTER 2017-07-18 11:42 | Inpatient (IN) | payer MEDICARE, MEDICAID ==
--- NOTE | 2017-07-18 12:00 | ED Physician Chart ---
ED Chief Complaint/HPI - Patient Information Date Seen:: 07/18/17 Time Seen:: 11:45 Chief Complaint:: Agitation History of Present Illness:: onset x 3 days of agitation and aggressive behavior; no report of SIs, AMS, ALOC , LOC, H/As, S/T, neck pain, C/P, SOB, Abd. Pain, A/N/V/D/C, fever, chills, or urinary s/s Allergies:: Allergies Allergy/AdvReac Type Severity Reaction Status Date / Time Penicillins Allergy Verified 11/19/16 19:31 pregabalin Allergy Verified 11/19/16 19:31 Historian:: Patient, EMS Review:: Nurse's Note Reviewed, Old Chart Reviewed, EMS run form Reviewed ED Review of Systems - Review of Systems General/Constitutional: No fever, No chills, No weight loss, No weakness, No diaphoresis, No edema, No loss of appetite Skin: No skin lesions, No rash, No bruising Head: No headache, No light-headedness Eyes: No loss of vision, No pain, No diplopia ENT: No earache, No nasal drainage, No sore throat, No tinnitus Neck: No neck pain, No swelling, No thyromegaly, No stiffness, No mass noted Cardio Vascular: No chest pain, No palpitations, No PND, No orthopnea, No edema Pulmonary: No SOB, No cough, No sputum, No wheezing GI: No nausea, No vomiting, No diarrhea, No pain, No melena, No hematochezia, No constipation, No hematemesis G/U: No dysuria, No frequency, No hematuria, No nacturia Set Up Mechanic Automatic Line: No vaginal discharge, No abnormal vaginal bleed, No contraction Musculoskeletal: No bone or joint pain, No back pain, No muscle pain Endocrine: No polyuria, No polydipsia Psychiatric: Prior psych history, No depression, Anxiety, No suicidal ideation, No homicidal ideation, No auditory hallucination, No visual hallucination Hematopoietic: No bruising, No lymphadenopathy Allergic/Immuno: No urticaria, No angioedema Neurological: No syncope, No focal symptoms, No weakness, No paresthesia, No headache, No seizure, No dizziness, No confusion, No vertigo ED Past Medical History - Past Medical History Obtainable: Yes Past Medical History: HTN, Arthritis Family History: HTN Social History: Non Smoker, No Alcohol, No Drug Use, Single, Care Facility Surgical History: None Psychiatricy History: Bipolar Medication: Reviewed Family Medical History - Family Member Mother History Unknown: Yes ED Physical Exam - Physical Examination General/Constitutional: Awake, Well-developed, well-nourished, Alert, No distress, GCS 15, Non-toxic appearing, Ambulatory Head: Atraumatic Eyes: Lids, conjuctiva normal, PERRL, EOMI Skin: Nl inspection, No rash, No skin lesions, No ecchymosis, Well hydrated, No lymphadenopathy ENMT: External ears, nose nl, TM canals nl, Nasal exam nl, Lips, teeth, gums nl , Oropharynx nl, Tonsils nl Neck: Nontender, Full ROM w/o pain, No JVD, No nuchal rigidity, No bruit, No mass, No stridor Respiratory: Nl effort/Exclusion, Clear to Auscultation, No Wheeze/Rhonchi/Rales Cardio Vascular: RRR, No murmur, gallop, rubs, NL S1 S2, Carotid/Femoral/Distal pulses equal bilaterally GI: No tenderness/rebounding/guarding, No organomegaly, No hernia, Normal BS's, Nondistended, No mass/bruits, No McBurney tenderness : No CVA tenderness Extremities: No tenderness or effusion, Full ROM, normal strength in all extremities, No edema, Normal digits & nails Neuro/Psych: Alert/oriented, DTR's symmetric, Normal sensory exam, Normal motor strength, Judgement/insight normal, Mood normal, Normal gait, No focal deficits Other Neuro/Psych comments:: + Psychomotor Agitation; no SIs; Mood/Affect: Labile Misc: Normal back, No paraspinal tenderness ED Labs/Radiology/EKG Results - Lab Results Comments:: unremarkable - EKG Interpretations EKG Time:: 12:03 Rate & Rhythm: 89; NSR Comments:: non-specific st-t changes ED Septic Shock - . Is Septic Shock (SBP<90, OR Lactate>4 mmol\L) present?: No ED Reassessment (Disposition) - Reassessment Reassessment Condition:: Improved - Diagnosis Diagnosis:: Agitation; Psychosis; Bipolar Disorder; Medical Clearance - Aftercare/Follow up Instructions Aftercare/Follow-Up Instructions:: Counseled pt regarding lab results/diagnosis & need follow up, Counseled pt & family regarding lab results/diagnosis & need follow up - Patient Disposition Discharge/Transfer:: Acute Care w/in this hosp Admitted to:: [facility] Condition at Disposition:: Stable, Improved
[2017-07-18 12:24] LABS: % BASOPHILS 0.7 % (0.0-2.0); % EOSINOPHILS 1.3 % (0.0-5.0); % LYMPHOCYTES 23.7 % (20.0-50.0); % MONOCYTES 13.2 % (2.0-10.0); % NEUTROPHILS 61.1 % (40.0-80.0); BASOPHILE ABSOLUTE 0.1 Th/cumm (0-0.2); EOSINOPHILE ABSOLUTE 0.1 Th/cmm (0.1-0.4); HEMATOCRIT 34.7 % (41.0-60); HEMOGLOBIN 11.5 gm/dL (12-16); LYMPHOCYTE ABSOLUTE 1.8 Th/cmm (1.5-3.0); MEAN CELL VOLUME 84.3 fl (81-100); MEAN CORPUSCULAR HGB CONC 33.2 pg (28.0-36.0); MEAN PLATELET VOLUME 8.4 fl; NEUTROPHILE ABSOLUTE 4.4 Th/cmm (1.8-8.0); PLATELET COUNT 186 Th/cmm (150-400); RED BLOOD COUNT 4.12 Mil/cmm (3.80-5.10); RED CELL DISTRIBUTION WIDTH 15.9 % (11.5-20.0); WHITE BLOOD COUNT 7.4 Th/cmm (4.8-10.8)
[2017-07-18 12:40] LABS: ACETAMINOPHEN < 10.0 ug/mL (10.0-30.0); ALB/GLOB RATIO 1.2 (1.0-1.8); ALBUMIN 3.7 gm/dL (3.7-5.3); ALKALINE PHOSPHATASE 153 U/L (34-104); ANION GAP 11.2 (7.0-16.0); BILIRUBIN,TOTAL 0.2 mg/dL (0.3-1.0); BUN - UREA NITROGEN 10 mg/dL (7-25); CALCIUM SERUM 9.2 mg/dL (8.6-10.3); CARBON DIOXIDE 27.8 mEq/L (21.0-31.0); CHLORIDE 98 mEq/L (98-107); CHOLESTEROL 207 mg/dL (<200); CREATININE - SERUM 0.6 mg/dL (0.6-1.2); GFR AFRICAN-AMERICAN > 60.0 ml/min (>90); GFR NON AFRICAN-AMERICAN > 60.0 ml/min; GLUCOSE 128 mg/dL (70-105); HDL -HIGH DENSITY LIPOPROTEIN 61 mg/dL (23-92); SGOT 12 U/L (13-39); SGPT/ALT 8 U/L (7-52); SODIUM SERUM 133 mEq/L (136-145); TOTAL PROTEIN,SERUM 6.7 gm/dL (6.0-8.3); TRIGLYCERIDES 61 mg/dL (<150)
[2017-07-18 12:51] LABS: SALICYLATES (ASPIRIN) < 25.0 mg/L (30.0-100.0)
[2017-07-18] MEDS ORDERED: Haloperidol Lactate 5 mg/mL 1mL Vial ONE (15:26)
[2017-07-18 15:40] VITALS: BP 140/79
[2017-07-18] MEDS ORDERED: Magnesium Hydroxide (MOM) 30 mL UDC PO PRN ×2 (15:40→19:36)
[2017-07-18] MEDS ORDERED: Maalox 30 mL Cup PO PRN (15:40)
[2017-07-18] MEDS ORDERED: Haloperidol Lactate 5 mg/mL 1mL Vial IM ONE (16:06)
[2017-07-18] MEDS ORDERED: chlorproMAZINE 25 mg/mL 2mL Amp ONE (16:40)
[2017-07-18] MEDS ORDERED: chlorproMAZINE 25 mg/mL 2mL Amp IM STA (16:55)
[2017-07-18 20:13] LABS: A1C % 6.8 % (4.0-6.0)
--- NOTE | 2017-07-18 20:14 | History & Physical ---
ADMIT DATE: 07/18/2017 HISTORY OF PRESENT ILLNESS: The patient is a 57-year-old female with long history of dementia, psychosis, hypothyroidism, chronic constipation, admitted to [facility], Dr. Hamilton's service for evaluation and treatment. The patient is very confused, agitated, poor historian. PAST MEDICAL HISTORY: Hypothyroidism, chronic anemia, chronic constipation, dementia, psychosis. PAST SURGICAL HISTORY: No recent surgery. ALLERGIES: PENICILLIN AND PREGABALIN. SOCIAL HISTORY: No smoking, no alcohol, no drug. MEDICATIONS: Follow admission reconciliation. SOCIAL HISTORY: No smoking, no alcohol, no drugs. FAMILY HISTORY: Noncontributory. REVIEW OF SYSTEMS: IMMUNO SYSTEM: No history of chronic renal disorder. CARDIOVASCULAR SYSTEM: No coronary artery disease. ENDOCRINE SYSTEM: She has history of hypothyroidism. GASTROINTESTINAL SYSTEM: No upper or lower gastrointestinal bleed. NEUROLOGICAL: She has history of psychosis, dementia. MUSCULOSKELETAL SYSTEM: No muscular dystrophy. HEMATOLOGIC SYSTEM: Has chronic anemia. GENITOURINARY: No dysuria or hematuria. PHYSICAL EXAMINATION: GENERAL: She is awake, not coherent. VITAL SIGNS: Temperature is 97.6, heart rate 90, blood pressure 140/79. HEENT: Normocephalic. Pupils reactive to light and accommodation. Sclerae clear. NECK: Supple. Negative for lymphadenopathy, JVD or bruit. CHEST: Air bilaterally normal. No rhonchi or wheezing. HEART: S1, S2 normal, no gallop rhythm. ABDOMEN: Soft, bowel sounds positive. EXTREMITIES: No edema. NEUROLOGIC: She is awake, not coherent. No focal motor or sensory deficit. LABORATORY DATA: White blood 7.4, hemoglobin 11.5, hematocrit 34.7, platelet is 186. Sodium 133, potassium 4, BUN 10, creatinine 0.6. ASSESSMENT: 1. Hypothyroidism. 2. Chronic anemia. 3. Chronic constipation. 4. Dementia. 5. Psychosis. PLAN: The patient admitted to the hospital under Dr. Hamilton's service. Problems to be addressed during hospitalization is psychosis. Medical problems addressed at discharge are hypothyroidism, chronic anemia and dementia. The patient is medically stable for activity. Thank you, Dr. Hamilton, for asking me to see your patient. JOB# [id number]
[2017-07-19] MEDS: Levothyroxine 0.05 Mg Tab PO SCH (06:55)
[2017-07-19] MEDS ORDERED: chlorproMAZINE 25 mg/mL 2mL Amp IM STA ×2 (07:18→12:58)
[2017-07-19] MEDS ORDERED: chlorproMAZINE 25 mg/mL 2mL Amp ONE (07:23)
[2017-07-19] MEDS: Ferrous Sulfate 325 MG TAB PO SCH (08:22)
[2017-07-19] MEDS: Multivitamin w/ Minerals Tab PO SCH (08:24)
[2017-07-19] MEDS ORDERED: CHLORPROMAZINE 100 MG PO SCH (09:00)
[2017-07-19] MEDS ORDERED: Multivitamin Tab PO SCH (09:00)
--- NOTE | 2017-07-19 11:53 | Psychosocial Evaluation ---
DATE OF SERVICE: 07/19/2017 IDENTIFYING INFORMATION: The patient is a 57-year-old female. CHIEF COMPLAINT: No answer. HISTORY OF PRESENT ILLNESS: The patient was sent from [place]. She was hitting other people. She was very destructive, yelling and screaming uncontrollably and that continued after coming here and had to be medicated. The patient is a poor historian. The patient has developmentally disabled when she was with the [facility]. I have been following the patient at [facility] and the [facility]. She came to [facility] and decide that she does need to be on all of this medications and decided to take her off and that is when the decompensated and she was very hard to take care of. The patient in her previous admission needed a lot of time to stabilize her and had ____ lot of medication. The patient herself is unable to participate in meaningful conversation because of her developmental disability. PAST PSYCHIATRIC HISTORY: Multiple prior admissions to this facility for similar reason and other places with history of developmentally disabled with the [facility] MEDICAL HISTORY: THE PATIENT IS ALLERGIC TO PENICILLIN AND LYRICA. She has hypothyroidism, GERD, anemia and I will defer the rest of the medical doctor. FAMILY AND SOCIAL HISTORY: Unobtainable. The patient is a poor historian. She was taken care of by the [facility]. Also, she has been at [facility] for a few months. MENTAL STATUS EXAMINATION: The patient was appropriately dressed, not well groomed. Unable to participate in meaningful conversation with episodes of yelling and screaming, very poor insight, unpredictable, impulsive, unable to test her memory and intelligence, so question regarding suicide, homicide or hallucination. Her insight and judgment is impaired. IMPRESSION: AXIS I: Bipolar disorder with psychosis and developmentally disabled. MEDICAL DIAGNOSES: Deferred to the medical doctor. Her assets, she needs to get help. Negative, poor ____ coping skills. INITIAL TREATMENT PLAN: The patient was started back on her medication, which is chlorpromazine, clonazepam as well as Haldol and Seroquel. We will do group therapy, milieu therapy, and individual therapy. ESTIMATED LENGTH OF STAY: 3-7 days. DISCHARGE CRITERIA: Decrease agitation, psychosis, acting out behavior after discharge outpatient. JOB# [id number]
[2017-07-19] MEDS ORDERED: chlorproMAZINE 25 mg/mL 2mL Amp IVP STA (12:58)
--- NOTE | 2017-07-19 19:18 | Internal Medicine Prog Note ---
Internal Medicine Subjective - Subjective Service Date: 07/19/17 Patient seen and examined:: with staff Patient is:: verbal, in wheelchair, confused Per staff patient has:: no adverse event (SHE HAS REDNESS OF LEFT SHOLDER SKIN) Internal Medicine Objective - Results Result Diagrams: 07/18/17 12:15 07/18/17 12:15 Recent Labs: Laboratory Last Values WBC 7.4 Th/cmm (4.8-10.8) 07/18/17 12:15 RBC 4.12 Mil/cmm (3.80-5.10) 07/18/17 12:15 Hgb 11.5 gm/dL (12-16) L 07/18/17 12:15 Hct 34.7 % (41.0-60) L 07/18/17 12:15 MCV 84.3 fl (81-100) 07/18/17 12:15 MCH 28.0 pg (27.0-31.0) 07/18/17 12:15 MCHC Differential 33.2 pg (28.0-36.0) 07/18/17 12:15 RDW 15.9 % (11.5-20.0) 07/18/17 12:15 Plt Count 186 Th/cmm (150-400) 07/18/17 12:15 MPV 8.4 fl 07/18/17 12:15 Neutrophils % 61.1 % (40.0-80.0) 07/18/17 12:15 Lymphocytes % 23.7 % (20.0-50.0) 07/18/17 12:15 Monocytes % 13.2 % (2.0-10.0) H 07/18/17 12:15 Eosinophils % 1.3 % (0.0-5.0) 07/18/17 12:15 Basophils % 0.7 % (0.0-2.0) 07/18/17 12:15 Sodium 133 mEq/L (136-145) L 07/18/17 12:15 Potassium 4.0 mEq/L (3.5-5.1) 07/18/17 12:15 Chloride 98 mEq/L (98-107) 07/18/17 12:15 Carbon Dioxide 27.8 mEq/L (21.0-31.0) 07/18/17 12:15 Anion Gap 11.2 (7.0-16.0) 07/18/17 12:15 BUN 10 mg/dL (7-25) 07/18/17 12:15 Creatinine 0.6 mg/dL (0.6-1.2) 07/18/17 12:15 Est GFR ( Amer) > 60.0 ml/min (>90) 07/18/17 12:15 Est GFR (Non-Af Amer) > 60.0 ml/min 07/18/17 12:15 BUN/Creatinine Ratio 16.7 07/18/17 12:15 Glucose 128 mg/dL (70-105) H 07/18/17 12:15 Hemoglobin A1c % 6.8 % (4.0-6.0) H 07/18/17 12:15 Calcium 9.2 mg/dL (8.6-10.3) 07/18/17 12:15 Total Bilirubin 0.2 mg/dL (0.3-1.0) L 07/18/17 12:15 AST 12 U/L (13-39) L 07/18/17 12:15 ALT 8 U/L (7-52) 07/18/17 12:15 Alkaline Phosphatase 153 U/L (34-104) H 07/18/17 12:15 Total Protein 6.7 gm/dL (6.0-8.3) 07/18/17 12:15 Albumin 3.7 gm/dL (3.7-5.3) 07/18/17 12:15 Globulin 3.0 gm/dL 07/18/17 12:15 Albumin/Globulin Ratio 1.2 (1.0-1.8) 07/18/17 12:15 Triglycerides 61 mg/dL (<150) 07/18/17 12:15 Cholesterol 207 mg/dL (<200) H 07/18/17 12:15 LDL Cholesterol Direct 127 mg/dL (75-193) 07/18/17 12:15 HDL Cholesterol 61 mg/dL (23-92) 07/18/17 12:15 TSH 2.79 uIU/ml (0.34-5.60) 07/18/17 12:15 Salicylates < 25.0 mg/L (30.0-100.0) L 07/18/17 12:15 Acetaminophen < 10.0 ug/mL (10.0-30.0) L 07/18/17 12:15 Ethyl Alcohol < 10 mg/dL (0-10) 07/18/17 12:15 - Physical Exam Vitals and I&O: Vital Signs Temp 97.6 F 07/19/17 14:00 Pulse 99 07/19/17 14:00 Resp 20 07/19/17 14:00 BP 149/81 07/19/17 14:00 Pulse Ox 96 07/19/17 14:00 Intake & Output 07/19/17 07/19/17 07/20/17 06:59 18:59 06:59 Intake Total 250 1000 Balance 250 1000 Intake: Oral 250 1000 Other: # Voids 4 3 # Bowel Movements 1 1 Active Medications: Current Medications Acetaminophen (Tylenol) 650 mg PO Q4HR PRN PRN Reason: Mild Pain / Temp above 100 Stop: 09/16/17 15:39 Al Hydrox/Mg Hydrox/Simethicone (Maalox) 30 ml PO Q4HR PRN PRN Reason: GI DISTRESS Stop: 09/16/17 15:39 Chlorpromazine (Thorazine) 50 mg PO BID LEVY PRN Reason: Protocol Stop: 09/17/17 08:59 Last Admin: 07/19/17 16:06 Dose: 50 mg Clonazepam (Klonopin) 2 mg PO BID LEVY PRN Reason: Protocol Stop: 09/17/17 08:59 Last Admin: 07/19/17 16:06 Dose: 2 mg Docusate Sodium (Colace) 100 mg PO BID LEVY Stop: 09/17/17 08:59 Last Admin: 07/19/17 16:07 Dose: 100 mg Famotidine (Pepcid) 20 mg PO DAILY LEVY Stop: 09/17/17 08:59 Last Admin: 07/19/17 08:22 Dose: 20 mg Ferrous Sulfate (Iron) 325 mg PO DAILY LEVY Stop: 09/17/17 08:59 Last Admin: 07/19/17 08:22 Dose: 325 mg Haloperidol (Haldol) 10 mg PO BID LEVY PRN Reason: Protocol Stop: 09/17/17 08:59 Last Admin: 07/19/17 16:06 Dose: 10 mg Levothyroxine Sodium (Synthroid) 0.05 mg PO QDAC LEVY Stop: 09/17/17 07:29 Last Admin: 07/19/17 06:55 Dose: 0.05 mg Lorazepam (Ativan) 0.5 mg PO Q4HR PRN; Protocol PRN Reason: Anxiety Stop: 08/17/17 15:39 Last Admin: 07/19/17 06:55 Dose: 0.5 mg Magnesium Hydroxide (Milk Of Magnesia) 30 ml PO DAILY PRN PRN Reason: Constipation Stop: 09/16/17 19:35 Quetiapine Fumarate (Seroquel) 400 mg PO BID LEVY PRN Reason: Protocol Stop: 09/17/17 08:59 Last Admin: 07/19/17 16:06 Dose: 400 mg Valproate Sodium (Depakene) 500 mg PO BID LEVY PRN Reason: Protocol Stop: 09/17/17 10:59 Last Admin: 07/19/17 16:06 Dose: 500 mg Zolpidem Tartrate (Ambien) 5 mg PO HS PRN PRN Reason: Insomnia Stop: 09/16/17 15:39 Last Admin: 07/19/17 00:58 Dose: 5 mg General: demented HEENT: NC/AT, PERRLA, EOMI, anicteric sclerae, throat clear Neck: Supple, No JVD, No thyromegaly, +2 carotid pulse wo bruit, No LAD Lungs: CTAB Cardiovascular: Normal S1, Normal S2, without murmur Abdomen: non-tender, non-distended Extremities: rash Neurological: no change - Procedures Procedures: Procedures Procedure Code Date INDIVID PSYCHOTHERAP NEC 94.39 06/08/08 OTHER GROUP THERAPY 94.44 06/08/08 Internal Medicine Assmt/Plan - Assessment Assessment: 1.DERMATITIS OF LEFT SHOULDER SKIN 2.HYPOTHYROIDISM 3.DEMENTIA. - Plan Plan: APPLY KENOLOG CREAM TO LEFT SHOULDER SKIN BID.
[2017-07-19] MEDS ORDERED: Triamcinolone Acetonide 0.1% Cream 15 gm TP ONE (19:30)
[2017-07-20] MEDS: Levothyroxine 0.05 Mg Tab PO SCH (06:42)
[2017-07-20] MEDS: Ferrous Sulfate 325 MG TAB PO SCH (08:26)
[2017-07-20] MEDS: Multivitamin w/ Minerals Tab PO SCH (08:27)
--- NOTE | 2017-07-20 16:15 | General Progress Note ---
Subjective - Review of Systems Service Date: 07/20/17 Subjective: resting comfortably no distress Objective - Results Result Diagrams: 07/18/17 12:15 07/18/17 12:15 Recent Labs: Laboratory Last Values WBC 7.4 Th/cmm (4.8-10.8) 07/18/17 12:15 RBC 4.12 Mil/cmm (3.80-5.10) 07/18/17 12:15 Hgb 11.5 gm/dL (12-16) L 07/18/17 12:15 Hct 34.7 % (41.0-60) L 07/18/17 12:15 MCV 84.3 fl (81-100) 07/18/17 12:15 MCH 28.0 pg (27.0-31.0) 07/18/17 12:15 MCHC Differential 33.2 pg (28.0-36.0) 07/18/17 12:15 RDW 15.9 % (11.5-20.0) 07/18/17 12:15 Plt Count 186 Th/cmm (150-400) 07/18/17 12:15 MPV 8.4 fl 07/18/17 12:15 Neutrophils % 61.1 % (40.0-80.0) 07/18/17 12:15 Lymphocytes % 23.7 % (20.0-50.0) 07/18/17 12:15 Monocytes % 13.2 % (2.0-10.0) H 07/18/17 12:15 Eosinophils % 1.3 % (0.0-5.0) 07/18/17 12:15 Basophils % 0.7 % (0.0-2.0) 07/18/17 12:15 Sodium 133 mEq/L (136-145) L 07/18/17 12:15 Potassium 4.0 mEq/L (3.5-5.1) 07/18/17 12:15 Chloride 98 mEq/L (98-107) 07/18/17 12:15 Carbon Dioxide 27.8 mEq/L (21.0-31.0) 07/18/17 12:15 Anion Gap 11.2 (7.0-16.0) 07/18/17 12:15 BUN 10 mg/dL (7-25) 07/18/17 12:15 Creatinine 0.6 mg/dL (0.6-1.2) 07/18/17 12:15 Est GFR ( Amer) > 60.0 ml/min (>90) 07/18/17 12:15 Est GFR (Non-Af Amer) > 60.0 ml/min 07/18/17 12:15 BUN/Creatinine Ratio 16.7 07/18/17 12:15 Glucose 128 mg/dL (70-105) H 07/18/17 12:15 Hemoglobin A1c % 6.8 % (4.0-6.0) H 07/18/17 12:15 Calcium 9.2 mg/dL (8.6-10.3) 07/18/17 12:15 Total Bilirubin 0.2 mg/dL (0.3-1.0) L 07/18/17 12:15 AST 12 U/L (13-39) L 07/18/17 12:15 ALT 8 U/L (7-52) 07/18/17 12:15 Alkaline Phosphatase 153 U/L (34-104) H 07/18/17 12:15 Total Protein 6.7 gm/dL (6.0-8.3) 07/18/17 12:15 Albumin 3.7 gm/dL (3.7-5.3) 07/18/17 12:15 Globulin 3.0 gm/dL 07/18/17 12:15 Albumin/Globulin Ratio 1.2 (1.0-1.8) 07/18/17 12:15 Triglycerides 61 mg/dL (<150) 07/18/17 12:15 Cholesterol 207 mg/dL (<200) H 07/18/17 12:15 LDL Cholesterol Direct 127 mg/dL (75-193) 07/18/17 12:15 HDL Cholesterol 61 mg/dL (23-92) 07/18/17 12:15 TSH 2.79 uIU/ml (0.34-5.60) 07/18/17 12:15 Salicylates < 25.0 mg/L (30.0-100.0) L 07/18/17 12:15 Acetaminophen < 10.0 ug/mL (10.0-30.0) L 07/18/17 12:15 Ethyl Alcohol < 10 mg/dL (0-10) 07/18/17 12:15 RPR NONREACTIVE (NONREACTIVE) 07/18/17 12:15 - Physical Exam Vitals and I&O: Vital Signs Temp 98.6 F 07/19/17 21:13 Pulse 104 07/19/17 21:13 Resp 18 07/19/17 21:13 BP 129/80 07/19/17 21:13 Pulse Ox 97 07/19/17 21:13 Intake & Output 07/19/17 07/20/17 07/20/17 18:59 06:59 18:59 Intake Total 1000 Balance 1000 Intake: Oral 1000 Other: # Voids 3 # Bowel Movements 1 Active Medications: Current Medications Acetaminophen (Tylenol) 650 mg PO Q4HR PRN PRN Reason: Mild Pain / Temp above 100 Stop: 09/16/17 15:39 Al Hydrox/Mg Hydrox/Simethicone (Maalox) 30 ml PO Q4HR PRN PRN Reason: GI DISTRESS Stop: 09/16/17 15:39 Chlorpromazine (Thorazine) 50 mg PO BID LEVY PRN Reason: Protocol Stop: 09/17/17 08:59 Last Admin: 07/20/17 08:27 Dose: 50 mg Clonazepam (Klonopin) 2 mg PO BID LEVY PRN Reason: Protocol Stop: 09/17/17 08:59 Last Admin: 07/20/17 08:28 Dose: 2 mg Docusate Sodium (Colace) 100 mg PO BID LEVY Stop: 09/17/17 08:59 Last Admin: 07/20/17 08:26 Dose: 100 mg Famotidine (Pepcid) 20 mg PO DAILY LEVY Stop: 09/17/17 08:59 Last Admin: 07/20/17 08:27 Dose: 20 mg Ferrous Sulfate (Iron) 325 mg PO DAILY LEVY Stop: 09/17/17 08:59 Last Admin: 07/20/17 08:26 Dose: 325 mg Haloperidol (Haldol) 10 mg PO BID LEVY PRN Reason: Protocol Stop: 09/17/17 08:59 Last Admin: 07/20/17 08:27 Dose: 10 mg Levothyroxine Sodium (Synthroid) 0.05 mg PO QDAC LEVY Stop: 09/17/17 07:29 Last Admin: 07/20/17 06:42 Dose: 0.05 mg Lorazepam (Ativan) 0.5 mg PO Q4HR PRN; Protocol PRN Reason: Anxiety Stop: 08/17/17 15:39 Last Admin: 07/19/17 20:13 Dose: 0.5 mg Magnesium Hydroxide (Milk Of Magnesia) 30 ml PO DAILY PRN PRN Reason: Constipation Stop: 09/16/17 19:35 Quetiapine Fumarate (Seroquel) 400 mg PO BID LEVY PRN Reason: Protocol Stop: 09/17/17 08:59 Last Admin: 07/20/17 08:27 Dose: 400 mg Valproate Sodium (Depakene) 500 mg PO BID LEVY PRN Reason: Protocol Stop: 09/17/17 10:59 Last Admin: 07/20/17 08:26 Dose: Not Given Zolpidem Tartrate (Ambien) 5 mg PO HS PRN PRN Reason: Insomnia Stop: 09/16/17 15:39 Last Admin: 07/19/17 20:13 Dose: 5 mg General: Alert, Cooperative HEENT: Atraumatic, PERRLA Neck: Supple, JVD Cardiovascular: Regular rate, Normal S1, Normal S2 Lungs: Clear to auscultation Abdomen: Bowel sounds, Soft - Procedures Procedures: Procedures Procedure Code Date INDIVID PSYCHOTHERAP NEC 94.39 06/08/08 OTHER GROUP THERAPY 94.44 06/08/08 Assessment/Plan - Problem List Patient Problems: All Active Problems AGITATION AND STRIKING OUT, DISRUPTIVE (Acute) - Assessment Assessment: 1.CHRONIC ANEMIA 2.HYPOTHYROIDISM 3.DEMENTIA. - Plan Plan: CONT CURRENT TREATMENT
--- NOTE | 2017-07-21 02:21 | Progress Notes ---
DATE: 07/20/2017 SUBJECTIVE: Case discussed with staff of the patient, reviewed records. The patient continues to have episodes of yelling and screaming. Continues to be unable to engage in a meaningful conversation, very hard to redirect. We reinitiated her chlorpromazine and that is the only thing that helped in the past and together with the other medication. She continues to have poor insight. Unable to participate in meaningful conversation or make safe plan for self-care and we will continue to work with the patient in group therapy, milieu therapy, and adjust the medications. JOB# [id number]
[2017-07-21] MEDS: Levothyroxine 0.05 Mg Tab PO SCH (06:41)
[2017-07-21] MEDS: Ferrous Sulfate 325 MG TAB PO SCH (08:41)
[2017-07-21] MEDS: Multivitamin w/ Minerals Tab PO SCH (08:41)
--- NOTE | 2017-07-21 14:39 | General Progress Note ---
Subjective - Review of Systems Service Date: 07/21/17 Subjective: resting comfortably no distress Objective - Results Result Diagrams: 07/18/17 12:15 07/18/17 12:15 Recent Labs: Laboratory Last Values WBC 7.4 Th/cmm (4.8-10.8) 07/18/17 12:15 RBC 4.12 Mil/cmm (3.80-5.10) 07/18/17 12:15 Hgb 11.5 gm/dL (12-16) L 07/18/17 12:15 Hct 34.7 % (41.0-60) L 07/18/17 12:15 MCV 84.3 fl (81-100) 07/18/17 12:15 MCH 28.0 pg (27.0-31.0) 07/18/17 12:15 MCHC Differential 33.2 pg (28.0-36.0) 07/18/17 12:15 RDW 15.9 % (11.5-20.0) 07/18/17 12:15 Plt Count 186 Th/cmm (150-400) 07/18/17 12:15 MPV 8.4 fl 07/18/17 12:15 Neutrophils % 61.1 % (40.0-80.0) 07/18/17 12:15 Lymphocytes % 23.7 % (20.0-50.0) 07/18/17 12:15 Monocytes % 13.2 % (2.0-10.0) H 07/18/17 12:15 Eosinophils % 1.3 % (0.0-5.0) 07/18/17 12:15 Basophils % 0.7 % (0.0-2.0) 07/18/17 12:15 Sodium 133 mEq/L (136-145) L 07/18/17 12:15 Potassium 4.0 mEq/L (3.5-5.1) 07/18/17 12:15 Chloride 98 mEq/L (98-107) 07/18/17 12:15 Carbon Dioxide 27.8 mEq/L (21.0-31.0) 07/18/17 12:15 Anion Gap 11.2 (7.0-16.0) 07/18/17 12:15 BUN 10 mg/dL (7-25) 07/18/17 12:15 Creatinine 0.6 mg/dL (0.6-1.2) 07/18/17 12:15 Est GFR ( Amer) > 60.0 ml/min (>90) 07/18/17 12:15 Est GFR (Non-Af Amer) > 60.0 ml/min 07/18/17 12:15 BUN/Creatinine Ratio 16.7 07/18/17 12:15 Glucose 128 mg/dL (70-105) H 07/18/17 12:15 Hemoglobin A1c % 6.8 % (4.0-6.0) H 07/18/17 12:15 Calcium 9.2 mg/dL (8.6-10.3) 07/18/17 12:15 Total Bilirubin 0.2 mg/dL (0.3-1.0) L 07/18/17 12:15 AST 12 U/L (13-39) L 07/18/17 12:15 ALT 8 U/L (7-52) 07/18/17 12:15 Alkaline Phosphatase 153 U/L (34-104) H 07/18/17 12:15 Total Protein 6.7 gm/dL (6.0-8.3) 07/18/17 12:15 Albumin 3.7 gm/dL (3.7-5.3) 07/18/17 12:15 Globulin 3.0 gm/dL 07/18/17 12:15 Albumin/Globulin Ratio 1.2 (1.0-1.8) 07/18/17 12:15 Triglycerides 61 mg/dL (<150) 07/18/17 12:15 Cholesterol 207 mg/dL (<200) H 07/18/17 12:15 LDL Cholesterol Direct 127 mg/dL (75-193) 07/18/17 12:15 HDL Cholesterol 61 mg/dL (23-92) 07/18/17 12:15 TSH 2.79 uIU/ml (0.34-5.60) 07/18/17 12:15 Salicylates < 25.0 mg/L (30.0-100.0) L 07/18/17 12:15 Acetaminophen < 10.0 ug/mL (10.0-30.0) L 07/18/17 12:15 Ethyl Alcohol < 10 mg/dL (0-10) 07/18/17 12:15 RPR NONREACTIVE (NONREACTIVE) 07/18/17 12:15 - Physical Exam Vitals and I&O: Vital Signs Temp 97.9 F 07/21/17 06:38 Pulse 98 07/21/17 06:38 Resp 18 07/21/17 06:38 BP 94/63 07/21/17 06:38 Pulse Ox 96 07/21/17 06:38 Intake & Output 07/20/17 07/21/17 07/21/17 18:59 06:59 18:59 Intake Total 480 Balance 480 Intake: Oral 480 Other: # Voids 2 # Bowel Movements 1 Stool Characteristics Formed Brown Active Medications: Current Medications Acetaminophen (Tylenol) 650 mg PO Q4HR PRN PRN Reason: Mild Pain / Temp above 100 Stop: 09/16/17 15:39 Al Hydrox/Mg Hydrox/Simethicone (Maalox) 30 ml PO Q4HR PRN PRN Reason: GI DISTRESS Stop: 09/16/17 15:39 Chlorpromazine (Thorazine) 50 mg PO BID LEVY PRN Reason: Protocol Stop: 09/17/17 08:59 Last Admin: 07/21/17 08:40 Dose: 50 mg Clonazepam (Klonopin) 2 mg PO BID LEVY PRN Reason: Protocol Stop: 09/17/17 08:59 Last Admin: 07/21/17 08:40 Dose: 2 mg Docusate Sodium (Colace) 100 mg PO BID LEVY Stop: 09/17/17 08:59 Last Admin: 07/21/17 08:41 Dose: 100 mg Famotidine (Pepcid) 20 mg PO DAILY LEVY Stop: 09/17/17 08:59 Last Admin: 07/21/17 08:41 Dose: 20 mg Ferrous Sulfate (Iron) 325 mg PO DAILY LEVY Stop: 09/17/17 08:59 Last Admin: 07/21/17 08:41 Dose: 325 mg Haloperidol (Haldol) 10 mg PO BID LEVY PRN Reason: Protocol Stop: 09/17/17 08:59 Last Admin: 07/21/17 08:41 Dose: 10 mg Levothyroxine Sodium (Synthroid) 0.05 mg PO QDAC LEVY Stop: 09/17/17 07:29 Last Admin: 07/21/17 06:41 Dose: 0.05 mg Lorazepam (Ativan) 0.5 mg PO Q4HR PRN; Protocol PRN Reason: Anxiety Stop: 08/17/17 15:39 Last Admin: 07/21/17 06:42 Dose: 0.5 mg Magnesium Hydroxide (Milk Of Magnesia) 30 ml PO DAILY PRN PRN Reason: Constipation Stop: 09/16/17 19:35 Quetiapine Fumarate (Seroquel) 400 mg PO BID LEVY PRN Reason: Protocol Stop: 09/17/17 08:59 Last Admin: 07/21/17 08:41 Dose: 400 mg Valproate Sodium (Depakene) 500 mg PO BID LEVY PRN Reason: Protocol Stop: 09/17/17 10:59 Last Admin: 07/21/17 08:42 Dose: 500 mg Zolpidem Tartrate (Ambien) 5 mg PO HS PRN PRN Reason: Insomnia Stop: 09/16/17 15:39 Last Admin: 07/20/17 20:52 Dose: 5 mg General: Alert, Cooperative HEENT: Atraumatic, PERRLA Neck: Supple, JVD Cardiovascular: Regular rate, Normal S1, Normal S2 Lungs: Clear to auscultation Abdomen: Bowel sounds, Soft - Procedures Procedures: Procedures Procedure Code Date INDIVID PSYCHOTHERAP NEC 94.39 06/08/08 OTHER GROUP THERAPY 94.44 06/08/08 Assessment/Plan - Problem List Patient Problems: All Active Problems AGITATION AND STRIKING OUT, DISRUPTIVE (Acute) - Assessment Assessment: 1.CHRONIC ANEMIA 2.HYPOTHYROIDISM 3.DEMENTIA. - Plan Plan: CONT CURRENT TREATMENT
--- NOTE | 2017-07-22 01:26 | Progress Notes ---
DATE: 07/21/2017 SUBJECTIVE: Case was discussed with staff of the patient, reviewed records. The patient in general is a bit calmer though she is still unpredictable. Continues to have episodes of yelling and screaming. Continues to have poor insight, unable to make safe plan for self-care. Continues to be unable to engage in a meaningful conversation. Her lab work showed her hemoglobin is low, hematocrit is low at 34.7, hemoglobin 11.5 with high monocyte 13.2. The rest is within normal range. Chemistry panel with low sodium, high blood sugar, high hemoglobin A1c and RPR is nonreactive. I will be asking Dr. López to evaluate her abnormal lab work and so far no side effects with the medications, no sedation. PLAN: We will continue the patient in group therapy, milieu therapy, adjust the medication as needed. JOB# [id number]
[2017-07-22] MEDS: Levothyroxine 0.05 Mg Tab PO SCH (06:34)
[2017-07-22] MEDS: Ferrous Sulfate 325 MG TAB PO SCH (08:05)
[2017-07-22] MEDS: Multivitamin w/ Minerals Tab PO SCH (08:05)
--- NOTE | 2017-07-22 16:50 | Internal Medicine Prog Note ---
Internal Medicine Subjective - Subjective Service Date: 07/22/17 Patient seen and examined:: without staff Patient is:: verbal, in wheelchair, confused Per staff patient has:: no adverse event (SHE HAS REDNESS OF LEFT SHOLDER SKIN) Internal Medicine Objective - Results Result Diagrams: 07/18/17 12:15 07/18/17 12:15 Recent Labs: Laboratory Last Values WBC 7.4 Th/cmm (4.8-10.8) 07/18/17 12:15 RBC 4.12 Mil/cmm (3.80-5.10) 07/18/17 12:15 Hgb 11.5 gm/dL (12-16) L 07/18/17 12:15 Hct 34.7 % (41.0-60) L 07/18/17 12:15 MCV 84.3 fl (81-100) 07/18/17 12:15 MCH 28.0 pg (27.0-31.0) 07/18/17 12:15 MCHC Differential 33.2 pg (28.0-36.0) 07/18/17 12:15 RDW 15.9 % (11.5-20.0) 07/18/17 12:15 Plt Count 186 Th/cmm (150-400) 07/18/17 12:15 MPV 8.4 fl 07/18/17 12:15 Neutrophils % 61.1 % (40.0-80.0) 07/18/17 12:15 Lymphocytes % 23.7 % (20.0-50.0) 07/18/17 12:15 Monocytes % 13.2 % (2.0-10.0) H 07/18/17 12:15 Eosinophils % 1.3 % (0.0-5.0) 07/18/17 12:15 Basophils % 0.7 % (0.0-2.0) 07/18/17 12:15 Sodium 133 mEq/L (136-145) L 07/18/17 12:15 Potassium 4.0 mEq/L (3.5-5.1) 07/18/17 12:15 Chloride 98 mEq/L (98-107) 07/18/17 12:15 Carbon Dioxide 27.8 mEq/L (21.0-31.0) 07/18/17 12:15 Anion Gap 11.2 (7.0-16.0) 07/18/17 12:15 BUN 10 mg/dL (7-25) 07/18/17 12:15 Creatinine 0.6 mg/dL (0.6-1.2) 07/18/17 12:15 Est GFR ( Amer) > 60.0 ml/min (>90) 07/18/17 12:15 Est GFR (Non-Af Amer) > 60.0 ml/min 07/18/17 12:15 BUN/Creatinine Ratio 16.7 07/18/17 12:15 Glucose 128 mg/dL (70-105) H 07/18/17 12:15 Hemoglobin A1c % 6.8 % (4.0-6.0) H 07/18/17 12:15 Calcium 9.2 mg/dL (8.6-10.3) 07/18/17 12:15 Total Bilirubin 0.2 mg/dL (0.3-1.0) L 07/18/17 12:15 AST 12 U/L (13-39) L 07/18/17 12:15 ALT 8 U/L (7-52) 07/18/17 12:15 Alkaline Phosphatase 153 U/L (34-104) H 07/18/17 12:15 Total Protein 6.7 gm/dL (6.0-8.3) 07/18/17 12:15 Albumin 3.7 gm/dL (3.7-5.3) 07/18/17 12:15 Globulin 3.0 gm/dL 07/18/17 12:15 Albumin/Globulin Ratio 1.2 (1.0-1.8) 07/18/17 12:15 Triglycerides 61 mg/dL (<150) 07/18/17 12:15 Cholesterol 207 mg/dL (<200) H 07/18/17 12:15 LDL Cholesterol Direct 127 mg/dL (75-193) 07/18/17 12:15 HDL Cholesterol 61 mg/dL (23-92) 07/18/17 12:15 TSH 2.79 uIU/ml (0.34-5.60) 07/18/17 12:15 Salicylates < 25.0 mg/L (30.0-100.0) L 07/18/17 12:15 Acetaminophen < 10.0 ug/mL (10.0-30.0) L 07/18/17 12:15 Ethyl Alcohol < 10 mg/dL (0-10) 07/18/17 12:15 RPR NONREACTIVE (NONREACTIVE) 07/18/17 12:15 - Physical Exam Vitals and I&O: Vital Signs Temp 97.6 F 07/22/17 14:00 Pulse 95 07/22/17 14:00 Resp 18 07/22/17 14:00 BP 120/71 07/22/17 14:00 Pulse Ox 96 07/22/17 14:00 Intake & Output 07/21/17 07/22/17 07/22/17 18:59 06:59 18:59 Intake Total 1350 240 Balance 1350 240 Intake: Oral 1350 240 Other: # Voids 5 3 # Bowel Movements 0 1 Stool Characteristics Formed Formed Formed Brown Brown Brown Active Medications: Current Medications Acetaminophen (Tylenol) 650 mg PO Q4HR PRN PRN Reason: Mild Pain / Temp above 100 Stop: 09/16/17 15:39 Al Hydrox/Mg Hydrox/Simethicone (Maalox) 30 ml PO Q4HR PRN PRN Reason: GI DISTRESS Stop: 09/16/17 15:39 Chlorpromazine (Thorazine) 50 mg PO BID LEVY PRN Reason: Protocol Stop: 09/17/17 08:59 Last Admin: 07/22/17 08:05 Dose: 50 mg Clonazepam (Klonopin) 2 mg PO BID LEVY PRN Reason: Protocol Stop: 09/17/17 08:59 Last Admin: 07/22/17 08:05 Dose: 2 mg Docusate Sodium (Colace) 100 mg PO BID LEVY Stop: 09/17/17 08:59 Last Admin: 07/22/17 08:05 Dose: 100 mg Famotidine (Pepcid) 20 mg PO DAILY LEVY Stop: 09/17/17 08:59 Last Admin: 07/22/17 08:05 Dose: 20 mg Ferrous Sulfate (Iron) 325 mg PO DAILY LEVY Stop: 09/17/17 08:59 Last Admin: 07/22/17 08:05 Dose: 325 mg Haloperidol (Haldol) 10 mg PO BID LEVY PRN Reason: Protocol Stop: 09/17/17 08:59 Last Admin: 07/22/17 08:05 Dose: 10 mg Levothyroxine Sodium (Synthroid) 0.05 mg PO QDAC LEVY Stop: 09/17/17 07:29 Last Admin: 07/22/17 06:34 Dose: 0.05 mg Lorazepam (Ativan) 0.5 mg PO Q4HR PRN; Protocol PRN Reason: Anxiety Stop: 08/17/17 15:39 Last Admin: 07/21/17 06:42 Dose: 0.5 mg Magnesium Hydroxide (Milk Of Magnesia) 30 ml PO DAILY PRN PRN Reason: Constipation Stop: 09/16/17 19:35 Quetiapine Fumarate (Seroquel) 400 mg PO BID LEVY PRN Reason: Protocol Stop: 09/17/17 08:59 Last Admin: 07/22/17 08:05 Dose: 400 mg Valproate Sodium (Depakene) 500 mg PO BID LEVY PRN Reason: Protocol Stop: 09/17/17 10:59 Last Admin: 07/22/17 08:05 Dose: 500 mg Zolpidem Tartrate (Ambien) 5 mg PO HS PRN PRN Reason: Insomnia Stop: 09/16/17 15:39 Last Admin: 07/20/17 20:52 Dose: 5 mg General: demented HEENT: NC/AT, PERRLA, EOMI, anicteric sclerae, throat clear Neck: Supple, No JVD, No thyromegaly, +2 carotid pulse wo bruit, No LAD Lungs: CTAB Cardiovascular: Normal S1, Normal S2, without murmur Abdomen: non-tender, non-distended Extremities: rash Neurological: no change - Procedures Procedures: Procedures Procedure Code Date INDIVID PSYCHOTHERAP NEC 94.39 06/08/08 OTHER GROUP THERAPY 94.44 06/08/08 Internal Medicine Assmt/Plan - Assessment Assessment: 1.DERMATITIS OF LEFT SHOULDER SKIN.RESOLVED 2.HYPOTHYROIDISM 3.DEMENTIA. - Plan Plan: CONTINUE ON CURRENT MEDICATION AND DIET. Nutritional Asmnt/Malnutr-PDOC - Dietary Evaluation Malnutrition Findings (Please click <Entered> for more info): Nutritional Asmnt/Malnutrition Start: 07/22/17 16: 21 Text: Status: Complete Freq: Document 07/22/17 16:21 TAYA (Rec: 07/22/17 16:35 BEHZAD [email or web address]) Nutritional Asmnt/Malnutrition Patient General Information Nutritional Screening Moderate Risk Diagnosis psychosis Pertinent Medical Hx/Surgical Hx hypothyroidism, chronic anemia , chronic constipation, dementia, psychosis Subjective Information Pt seen lying in bed at time of visit, confused. Pt reported good appetite, would like coffee with meal tray. Per EMR PO intake 1005. Current Diet Order/ Nutrition Support regular Pertinent Medications coalce, Iron, synthroid, seroquel Pertinent Labs 07/18 Na 133, glucose 128, A1c 6.8 Nutritional Hx/Data Height 1.6 m Height (Calculated Centimeters) 160.0 Current Weight (lbs) 93.894 kg Weight (Calculated Kilograms) 93.9 Weight (Calculated Grams) 82290.6 [place] Body Weight 115 Body Mass Index (BMI) 36.6 Weight Status Obese GI Symptoms GI Symptoms None Last BM 07/22 Difficult in: None Skin Integrity/Comment: blackened to left dorsal medical foot Current %PO Good (75-100%) Estimated Nutritional Goals BEE in Kcals: Using Current wt Calories/Kcals/Kg 25-30 Kcals Calculated 6646-7511 Protein: Using Current wt Protein g/k Protein Calculated 63 Fluid: ml 1575-1890ml (1ml/kcal) Nutritional Problem No current Nutrition Prob Problem N/A Malnutrition Alert Protein-Calorie Malnutrition N/A Is there a minimum of two criteria No selected? Query Text:Check all the applicable criteria. A minimum of two criteria are recommended for diagnosis of either severe or non-severe malnutrition. Intervention/Recommendation Comments 1. Continue with current diet as ordered. 2. Monitor PO intake, wt, labs and skin integrity 3. F/U as low risk in 7 days, 07/29 Expected Outcomes/Goals Expected Outcomes/Goals 1. PO intake to meet at least 75% of nutritional needs. 2. Wt stability, skin to remain intact, labs to approach WNL.
--- NOTE | 2017-07-22 23:53 | Progress Notes ---
DATE: 07/22/2017 SUBJECTIVE: Case was discussed with staff of the patient, reviewed records. The patient continues to have episodes of yelling and screaming. Continues to be unpredictable, impulsive, needing redirection. Continues to have poor insight, unable to participate in meaningful conversation. She is mentally disabled. No side effects with the medication, no sedation, no nausea. I consulted Dr. López regarding her abnormal lab. PLAN: We will continue the patient in group therapy, milieu therapy, and adjust medications as needed. JOB# [id number]
[2017-07-23] MEDS: Levothyroxine 0.05 Mg Tab PO SCH (06:42)
[2017-07-23] MEDS: Ferrous Sulfate 325 MG TAB PO SCH (08:07)
[2017-07-23] MEDS: Multivitamin w/ Minerals Tab PO SCH (08:07)
--- NOTE | 2017-07-23 15:27 | Progress Notes ---
DATE: 07/23/2017 Case is discussed with staff of the patient, reviewed records. The patient today was yelling and screaming. She continues to be unable to express herself very well. She has developmental disability and continues to need redirection. She has been sleeping and eating well. No side effects with the medication, no sedation, no nausea, no extrapyramidal symptoms. I will be holding on making any changes because she waxes and wanes and she is already on a lot of medications; however, she did not calm down, so she was given all these medication work with therapist and adjust medication as needed. JOB# [id number]
--- NOTE | 2017-07-23 20:01 | Internal Medicine Prog Note ---
Internal Medicine Subjective - Subjective Service Date: 07/23/17 Patient seen and examined:: with staff (she is still confused) Patient is:: verbal, in wheelchair, confused Per staff patient has:: no adverse event (SHE HAS REDNESS OF LEFT SHOLDER SKIN) Internal Medicine Objective - Results Result Diagrams: 07/18/17 12:15 07/18/17 12:15 Recent Labs: Laboratory Last Values WBC 7.4 Th/cmm (4.8-10.8) 07/18/17 12:15 RBC 4.12 Mil/cmm (3.80-5.10) 07/18/17 12:15 Hgb 11.5 gm/dL (12-16) L 07/18/17 12:15 Hct 34.7 % (41.0-60) L 07/18/17 12:15 MCV 84.3 fl (81-100) 07/18/17 12:15 MCH 28.0 pg (27.0-31.0) 07/18/17 12:15 MCHC Differential 33.2 pg (28.0-36.0) 07/18/17 12:15 RDW 15.9 % (11.5-20.0) 07/18/17 12:15 Plt Count 186 Th/cmm (150-400) 07/18/17 12:15 MPV 8.4 fl 07/18/17 12:15 Neutrophils % 61.1 % (40.0-80.0) 07/18/17 12:15 Lymphocytes % 23.7 % (20.0-50.0) 07/18/17 12:15 Monocytes % 13.2 % (2.0-10.0) H 07/18/17 12:15 Eosinophils % 1.3 % (0.0-5.0) 07/18/17 12:15 Basophils % 0.7 % (0.0-2.0) 07/18/17 12:15 Sodium 133 mEq/L (136-145) L 07/18/17 12:15 Potassium 4.0 mEq/L (3.5-5.1) 07/18/17 12:15 Chloride 98 mEq/L (98-107) 07/18/17 12:15 Carbon Dioxide 27.8 mEq/L (21.0-31.0) 07/18/17 12:15 Anion Gap 11.2 (7.0-16.0) 07/18/17 12:15 BUN 10 mg/dL (7-25) 07/18/17 12:15 Creatinine 0.6 mg/dL (0.6-1.2) 07/18/17 12:15 Est GFR ( Amer) > 60.0 ml/min (>90) 07/18/17 12:15 Est GFR (Non-Af Amer) > 60.0 ml/min 07/18/17 12:15 BUN/Creatinine Ratio 16.7 07/18/17 12:15 Glucose 128 mg/dL (70-105) H 07/18/17 12:15 Hemoglobin A1c % 6.8 % (4.0-6.0) H 07/18/17 12:15 Calcium 9.2 mg/dL (8.6-10.3) 07/18/17 12:15 Total Bilirubin 0.2 mg/dL (0.3-1.0) L 07/18/17 12:15 AST 12 U/L (13-39) L 07/18/17 12:15 ALT 8 U/L (7-52) 07/18/17 12:15 Alkaline Phosphatase 153 U/L (34-104) H 07/18/17 12:15 Total Protein 6.7 gm/dL (6.0-8.3) 07/18/17 12:15 Albumin 3.7 gm/dL (3.7-5.3) 07/18/17 12:15 Globulin 3.0 gm/dL 07/18/17 12:15 Albumin/Globulin Ratio 1.2 (1.0-1.8) 07/18/17 12:15 Triglycerides 61 mg/dL (<150) 07/18/17 12:15 Cholesterol 207 mg/dL (<200) H 07/18/17 12:15 LDL Cholesterol Direct 127 mg/dL (75-193) 07/18/17 12:15 HDL Cholesterol 61 mg/dL (23-92) 07/18/17 12:15 TSH 2.79 uIU/ml (0.34-5.60) 07/18/17 12:15 Salicylates < 25.0 mg/L (30.0-100.0) L 07/18/17 12:15 Acetaminophen < 10.0 ug/mL (10.0-30.0) L 07/18/17 12:15 Ethyl Alcohol < 10 mg/dL (0-10) 07/18/17 12:15 RPR NONREACTIVE (NONREACTIVE) 07/18/17 12:15 - Physical Exam Vitals and I&O: Vital Signs Temp 97.6 F 07/23/17 15:41 Pulse 88 07/23/17 15:41 Resp 20 07/23/17 15:41 BP 130/62 07/23/17 15:41 Pulse Ox 97 07/23/17 15:41 Intake & Output 07/23/17 07/23/17 07/24/17 06:59 18:59 06:59 Intake Total 360 1200 Balance 360 1200 Intake: Oral 360 1200 Other: # Voids 2 3 # Bowel Movements 0 1 Active Medications: Current Medications Acetaminophen (Tylenol) 650 mg PO Q4HR PRN PRN Reason: Mild Pain / Temp above 100 Stop: 09/16/17 15:39 Al Hydrox/Mg Hydrox/Simethicone (Maalox) 30 ml PO Q4HR PRN PRN Reason: GI DISTRESS Stop: 09/16/17 15:39 Chlorpromazine (Thorazine) 50 mg PO BID LEVY PRN Reason: Protocol Stop: 09/17/17 08:59 Last Admin: 07/23/17 17:14 Dose: 50 mg Clonazepam (Klonopin) 2 mg PO BID LEVY PRN Reason: Protocol Stop: 09/17/17 08:59 Last Admin: 07/23/17 17:15 Dose: 2 mg Docusate Sodium (Colace) 100 mg PO BID LEVY Stop: 09/17/17 08:59 Last Admin: 07/23/17 17:15 Dose: 100 mg Famotidine (Pepcid) 20 mg PO DAILY LEVY Stop: 09/17/17 08:59 Last Admin: 07/23/17 08:07 Dose: 20 mg Ferrous Sulfate (Iron) 325 mg PO DAILY LEVY Stop: 09/17/17 08:59 Last Admin: 07/23/17 08:07 Dose: 325 mg Haloperidol (Haldol) 10 mg PO BID LEVY PRN Reason: Protocol Stop: 09/17/17 08:59 Last Admin: 07/23/17 17:15 Dose: 10 mg Levothyroxine Sodium (Synthroid) 0.05 mg PO QDAC LEVY Stop: 09/17/17 07:29 Last Admin: 07/23/17 06:42 Dose: 0.05 mg Lorazepam (Ativan) 0.5 mg PO Q4HR PRN; Protocol PRN Reason: Anxiety Stop: 08/17/17 15:39 Last Admin: 07/23/17 12:44 Dose: 0.5 mg Magnesium Hydroxide (Milk Of Magnesia) 30 ml PO DAILY PRN PRN Reason: Constipation Stop: 09/16/17 19:35 Quetiapine Fumarate (Seroquel) 400 mg PO BID LEVY PRN Reason: Protocol Stop: 09/17/17 08:59 Last Admin: 07/23/17 17:15 Dose: 400 mg Valproate Sodium (Depakene) 500 mg PO BID LEVY PRN Reason: Protocol Stop: 09/17/17 10:59 Last Admin: 07/23/17 17:15 Dose: 500 mg Zolpidem Tartrate (Ambien) 5 mg PO HS PRN PRN Reason: Insomnia Stop: 09/16/17 15:39 Last Admin: 07/20/17 20:52 Dose: 5 mg General: demented HEENT: NC/AT, PERRLA, EOMI, anicteric sclerae, throat clear Neck: Supple, No JVD, No thyromegaly, +2 carotid pulse wo bruit, No LAD Lungs: CTAB Cardiovascular: Normal S1, Normal S2, without murmur Abdomen: non-tender, non-distended Extremities: rash Neurological: no change - Procedures Procedures: Procedures Procedure Code Date INDIVID PSYCHOTHERAP NEC 94.39 06/08/08 OTHER GROUP THERAPY 94.44 06/08/08 Internal Medicine Assmt/Plan - Assessment Assessment: 1.DERMATITIS OF LEFT SHOULDER SKIN.RESOLVED 2.HYPOTHYROIDISM 3.DEMENTIA. - Plan Plan: CONTINUE ON CURRENT MEDICATION AND DIET. Nutritional Asmnt/Malnutr-PDOC - Dietary Evaluation Malnutrition Findings (Please click <Entered> for more info): Nutritional Asmnt/Malnutrition Start: 07/22/17 16: 21 Text: Status: Complete Freq: Document 07/22/17 16:21 TAYA (Rec: 07/22/17 16:35 FLORY [email or web address]) Nutritional Asmnt/Malnutrition Patient General Information Nutritional Screening Moderate Risk Diagnosis psychosis Pertinent Medical Hx/Surgical Hx hypothyroidism, chronic anemia , chronic constipation, dementia, psychosis Subjective Information Pt seen lying in bed at time of visit, confused. Pt reported good appetite, would like coffee with meal tray. Per EMR PO intake 1005. Current Diet Order/ Nutrition Support regular Pertinent Medications coalce, Iron, synthroid, seroquel Pertinent Labs 07/18 Na 133, glucose 128, A1c 6.8 Nutritional Hx/Data Height 1.6 m Height (Calculated Centimeters) 160.0 Current Weight (lbs) 93.894 kg Weight (Calculated Kilograms) 93.9 Weight (Calculated Grams) 88792.6 [place] Body Weight 115 Body Mass Index (BMI) 36.6 Weight Status Obese GI Symptoms GI Symptoms None Last BM 07/22 Difficult in: None Skin Integrity/Comment: blackened to left dorsal medical foot Current %PO Good (75-100%) Estimated Nutritional Goals BEE in Kcals: Using Current wt Calories/Kcals/Kg 25-30 Kcals Calculated 4145-6934 Protein: Using Current wt Protein g/k Protein Calculated 63 Fluid: ml 1575-1890ml (1ml/kcal) Nutritional Problem No current Nutrition Prob Problem N/A Malnutrition Alert Protein-Calorie Malnutrition N/A Is there a minimum of two criteria No selected? Query Text:Check all the applicable criteria. A minimum of two criteria are recommended for diagnosis of either severe or non-severe malnutrition. Intervention/Recommendation Comments 1. Continue with current diet as ordered. 2. Monitor PO intake, wt, labs and skin integrity 3. F/U as low risk in 7 days, 07/29 Expected Outcomes/Goals Expected Outcomes/Goals 1. PO intake to meet at least 75% of nutritional needs. 2. Wt stability, skin to remain intact, labs to approach WNL.
[2017-07-24] MEDS: Levothyroxine 0.05 Mg Tab PO SCH (06:56)
[2017-07-24] MEDS: Multivitamin w/ Minerals Tab PO SCH (08:14)
[2017-07-24] MEDS: Ferrous Sulfate 325 MG TAB PO SCH (08:14)
--- NOTE | 2017-07-24 13:26 | Progress Notes ---
DATE: 07/24/2017 Case discussed with staff of the patient, reviewed records. The patient continues to have episodes of yelling and screaming. She is developmentally disabled and has very limited insight about her behavior. She is still unpredictable and impulsive, needing redirection, unable to make safe plan for self-care. Sleeping well, eating well. No side effects with the medication, no sedation, no nausea, no extrapyramidal symptoms. We will continue the patient in group therapy, milieu therapy, and adjust the medications as needed. [facility]# [id number]
--- NOTE | 2017-07-24 18:45 | Internal Medicine Prog Note ---
Internal Medicine Subjective - Subjective Service Date: 07/24/17 Patient seen and examined:: with staff Patient is:: verbal, in wheelchair, confused Per staff patient has:: no adverse event (SHE HAS REDNESS OF LEFT SHOLDER SKIN) Internal Medicine Objective - Results Result Diagrams: 07/18/17 12:15 07/18/17 12:15 Recent Labs: Laboratory Last Values WBC 7.4 Th/cmm (4.8-10.8) 07/18/17 12:15 RBC 4.12 Mil/cmm (3.80-5.10) 07/18/17 12:15 Hgb 11.5 gm/dL (12-16) L 07/18/17 12:15 Hct 34.7 % (41.0-60) L 07/18/17 12:15 MCV 84.3 fl (81-100) 07/18/17 12:15 MCH 28.0 pg (27.0-31.0) 07/18/17 12:15 MCHC Differential 33.2 pg (28.0-36.0) 07/18/17 12:15 RDW 15.9 % (11.5-20.0) 07/18/17 12:15 Plt Count 186 Th/cmm (150-400) 07/18/17 12:15 MPV 8.4 fl 07/18/17 12:15 Neutrophils % 61.1 % (40.0-80.0) 07/18/17 12:15 Lymphocytes % 23.7 % (20.0-50.0) 07/18/17 12:15 Monocytes % 13.2 % (2.0-10.0) H 07/18/17 12:15 Eosinophils % 1.3 % (0.0-5.0) 07/18/17 12:15 Basophils % 0.7 % (0.0-2.0) 07/18/17 12:15 Sodium 133 mEq/L (136-145) L 07/18/17 12:15 Potassium 4.0 mEq/L (3.5-5.1) 07/18/17 12:15 Chloride 98 mEq/L (98-107) 07/18/17 12:15 Carbon Dioxide 27.8 mEq/L (21.0-31.0) 07/18/17 12:15 Anion Gap 11.2 (7.0-16.0) 07/18/17 12:15 BUN 10 mg/dL (7-25) 07/18/17 12:15 Creatinine 0.6 mg/dL (0.6-1.2) 07/18/17 12:15 Est GFR ( Amer) > 60.0 ml/min (>90) 07/18/17 12:15 Est GFR (Non-Af Amer) > 60.0 ml/min 07/18/17 12:15 BUN/Creatinine Ratio 16.7 07/18/17 12:15 Glucose 128 mg/dL (70-105) H 07/18/17 12:15 Hemoglobin A1c % 6.8 % (4.0-6.0) H 07/18/17 12:15 Calcium 9.2 mg/dL (8.6-10.3) 07/18/17 12:15 Total Bilirubin 0.2 mg/dL (0.3-1.0) L 07/18/17 12:15 AST 12 U/L (13-39) L 07/18/17 12:15 ALT 8 U/L (7-52) 07/18/17 12:15 Alkaline Phosphatase 153 U/L (34-104) H 07/18/17 12:15 Total Protein 6.7 gm/dL (6.0-8.3) 07/18/17 12:15 Albumin 3.7 gm/dL (3.7-5.3) 07/18/17 12:15 Globulin 3.0 gm/dL 07/18/17 12:15 Albumin/Globulin Ratio 1.2 (1.0-1.8) 07/18/17 12:15 Triglycerides 61 mg/dL (<150) 07/18/17 12:15 Cholesterol 207 mg/dL (<200) H 07/18/17 12:15 LDL Cholesterol Direct 127 mg/dL (75-193) 07/18/17 12:15 HDL Cholesterol 61 mg/dL (23-92) 07/18/17 12:15 TSH 2.79 uIU/ml (0.34-5.60) 07/18/17 12:15 Salicylates < 25.0 mg/L (30.0-100.0) L 07/18/17 12:15 Acetaminophen < 10.0 ug/mL (10.0-30.0) L 07/18/17 12:15 Ethyl Alcohol < 10 mg/dL (0-10) 07/18/17 12:15 RPR NONREACTIVE (NONREACTIVE) 07/18/17 12:15 - Physical Exam Vitals and I&O: Vital Signs Temp 97.7 F 07/24/17 15:27 Pulse 94 07/24/17 15:27 Resp 18 07/24/17 15:27 BP 137/88 07/24/17 15:27 Pulse Ox 96 07/24/17 15:27 Intake & Output 07/23/17 07/24/17 07/24/17 18:59 06:59 18:59 Intake Total 8878 437 2986 Balance 1005 336 5290 Intake: Oral 9127 728 7604 Other 240 Other: # Voids 3 3 3 # Bowel Movements 1 Active Medications: Current Medications Acetaminophen (Tylenol) 650 mg PO Q4HR PRN PRN Reason: Mild Pain / Temp above 100 Stop: 09/16/17 15:39 Al Hydrox/Mg Hydrox/Simethicone (Maalox) 30 ml PO Q4HR PRN PRN Reason: GI DISTRESS Stop: 09/16/17 15:39 Chlorpromazine (Thorazine) 50 mg PO BID LEVY PRN Reason: Protocol Stop: 09/17/17 08:59 Last Admin: 07/24/17 16:34 Dose: 50 mg Clonazepam (Klonopin) 2 mg PO BID LEVY PRN Reason: Protocol Stop: 09/17/17 08:59 Last Admin: 07/24/17 16:33 Dose: 2 mg Docusate Sodium (Colace) 100 mg PO BID LEVY Stop: 09/17/17 08:59 Last Admin: 07/24/17 08:14 Dose: 100 mg Famotidine (Pepcid) 20 mg PO DAILY LEVY Stop: 09/17/17 08:59 Last Admin: 07/24/17 08:14 Dose: 20 mg Ferrous Sulfate (Iron) 325 mg PO DAILY LEVY Stop: 09/17/17 08:59 Last Admin: 07/24/17 08:14 Dose: 325 mg Haloperidol (Haldol) 10 mg PO BID LEVY PRN Reason: Protocol Stop: 09/17/17 08:59 Last Admin: 07/24/17 16:33 Dose: 10 mg Levothyroxine Sodium (Synthroid) 0.05 mg PO QDAC LEVY Stop: 09/17/17 07:29 Last Admin: 07/24/17 06:56 Dose: 0.05 mg Lorazepam (Ativan) 0.5 mg PO Q4HR PRN; Protocol PRN Reason: Anxiety Stop: 08/17/17 15:39 Last Admin: 07/24/17 14:13 Dose: 0.5 mg Magnesium Hydroxide (Milk Of Magnesia) 30 ml PO DAILY PRN PRN Reason: Constipation Stop: 09/16/17 19:35 Quetiapine Fumarate (Seroquel) 400 mg PO BID LEVY PRN Reason: Protocol Stop: 09/17/17 08:59 Last Admin: 07/24/17 16:34 Dose: 400 mg Valproate Sodium (Depakene) 500 mg PO BID LEVY PRN Reason: Protocol Stop: 09/17/17 10:59 Last Admin: 07/24/17 16:32 Dose: 500 mg Zolpidem Tartrate (Ambien) 5 mg PO HS PRN PRN Reason: Insomnia Stop: 09/16/17 15:39 Last Admin: 07/23/17 20:27 Dose: 5 mg General: demented HEENT: NC/AT, PERRLA, EOMI, anicteric sclerae, throat clear Neck: Supple, No JVD, No thyromegaly, +2 carotid pulse wo bruit, No LAD Lungs: CTAB Cardiovascular: Normal S1, Normal S2, without murmur Abdomen: non-tender, non-distended Extremities: rash Neurological: no change - Procedures Procedures: Procedures Procedure Code Date INDIVID PSYCHOTHERAP NEC 94.39 06/08/08 OTHER GROUP THERAPY 94.44 06/08/08 Internal Medicine Assmt/Plan - Assessment Assessment: 1.DERMATITIS OF LEFT SHOULDER SKIN.RESOLVED 2.HYPOTHYROIDISM 3.DEMENTIA. - Plan Plan: CONTINUE ON CURRENT MEDICATION AND DIET. Nutritional Asmnt/Malnutr-PDOC - Dietary Evaluation Malnutrition Findings (Please click <Entered> for more info): Nutritional Asmnt/Malnutrition Start: 07/22/17 16: 21 Text: Status: Complete Freq: Document 07/22/17 16:21 TAYA (Rec: 07/22/17 16:35 BEHZAD [email or web address]) Nutritional Asmnt/Malnutrition Patient General Information Nutritional Screening Moderate Risk Diagnosis psychosis Pertinent Medical Hx/Surgical Hx hypothyroidism, chronic anemia , chronic constipation, dementia, psychosis Subjective Information Pt seen lying in bed at time of visit, confused. Pt reported good appetite, would like coffee with meal tray. Per EMR PO intake 1005. Current Diet Order/ Nutrition Support regular Pertinent Medications coalce, Iron, synthroid, seroquel Pertinent Labs 07/18 Na 133, glucose 128, A1c 6.8 Nutritional Hx/Data Height 1.6 m Height (Calculated Centimeters) 160.0 Current Weight (lbs) 93.894 kg Weight (Calculated Kilograms) 93.9 Weight (Calculated Grams) 18566.6 [place] Body Weight 115 Body Mass Index (BMI) 36.6 Weight Status Obese GI Symptoms GI Symptoms None Last BM 07/22 Difficult in: None Skin Integrity/Comment: blackened to left dorsal medical foot Current %PO Good (75-100%) Estimated Nutritional Goals BEE in Kcals: Using Current wt Calories/Kcals/Kg 25-30 Kcals Calculated 6532-4232 Protein: Using Current wt Protein g/k Protein Calculated 63 Fluid: ml 1575-1890ml (1ml/kcal) Nutritional Problem No current Nutrition Prob Problem N/A Malnutrition Alert Protein-Calorie Malnutrition N/A Is there a minimum of two criteria No selected? Query Text:Check all the applicable criteria. A minimum of two criteria are recommended for diagnosis of either severe or non-severe malnutrition. Intervention/Recommendation Comments 1. Continue with current diet as ordered. 2. Monitor PO intake, wt, labs and skin integrity 3. F/U as low risk in 7 days, 07/29 Expected Outcomes/Goals Expected Outcomes/Goals 1. PO intake to meet at least 75% of nutritional needs. 2. Wt stability, skin to remain intact, labs to approach WNL.
[2017-07-25] MEDS: Levothyroxine 0.05 Mg Tab PO SCH (07:19)
[2017-07-25] MEDS: Ferrous Sulfate 325 MG TAB PO SCH (08:26)
[2017-07-25] MEDS: Multivitamin w/ Minerals Tab PO SCH (08:26)
--- NOTE | 2017-07-25 21:04 | Internal Medicine Prog Note ---
Internal Medicine Subjective - Subjective Service Date: 07/25/17 Patient seen and examined:: with staff Patient is:: verbal, in wheelchair, confused Per staff patient has:: no adverse event (SHE HAS REDNESS OF LEFT SHOLDER SKIN) Internal Medicine Objective - Results Result Diagrams: 07/18/17 12:15 07/18/17 12:15 Recent Labs: Laboratory Last Values WBC 7.4 Th/cmm (4.8-10.8) 07/18/17 12:15 RBC 4.12 Mil/cmm (3.80-5.10) 07/18/17 12:15 Hgb 11.5 gm/dL (12-16) L 07/18/17 12:15 Hct 34.7 % (41.0-60) L 07/18/17 12:15 MCV 84.3 fl (81-100) 07/18/17 12:15 MCH 28.0 pg (27.0-31.0) 07/18/17 12:15 MCHC Differential 33.2 pg (28.0-36.0) 07/18/17 12:15 RDW 15.9 % (11.5-20.0) 07/18/17 12:15 Plt Count 186 Th/cmm (150-400) 07/18/17 12:15 MPV 8.4 fl 07/18/17 12:15 Neutrophils % 61.1 % (40.0-80.0) 07/18/17 12:15 Lymphocytes % 23.7 % (20.0-50.0) 07/18/17 12:15 Monocytes % 13.2 % (2.0-10.0) H 07/18/17 12:15 Eosinophils % 1.3 % (0.0-5.0) 07/18/17 12:15 Basophils % 0.7 % (0.0-2.0) 07/18/17 12:15 Sodium 133 mEq/L (136-145) L 07/18/17 12:15 Potassium 4.0 mEq/L (3.5-5.1) 07/18/17 12:15 Chloride 98 mEq/L (98-107) 07/18/17 12:15 Carbon Dioxide 27.8 mEq/L (21.0-31.0) 07/18/17 12:15 Anion Gap 11.2 (7.0-16.0) 07/18/17 12:15 BUN 10 mg/dL (7-25) 07/18/17 12:15 Creatinine 0.6 mg/dL (0.6-1.2) 07/18/17 12:15 Est GFR ( Amer) > 60.0 ml/min (>90) 07/18/17 12:15 Est GFR (Non-Af Amer) > 60.0 ml/min 07/18/17 12:15 BUN/Creatinine Ratio 16.7 07/18/17 12:15 Glucose 128 mg/dL (70-105) H 07/18/17 12:15 Hemoglobin A1c % 6.8 % (4.0-6.0) H 07/18/17 12:15 Calcium 9.2 mg/dL (8.6-10.3) 07/18/17 12:15 Total Bilirubin 0.2 mg/dL (0.3-1.0) L 07/18/17 12:15 AST 12 U/L (13-39) L 07/18/17 12:15 ALT 8 U/L (7-52) 07/18/17 12:15 Alkaline Phosphatase 153 U/L (34-104) H 07/18/17 12:15 Total Protein 6.7 gm/dL (6.0-8.3) 07/18/17 12:15 Albumin 3.7 gm/dL (3.7-5.3) 07/18/17 12:15 Globulin 3.0 gm/dL 07/18/17 12:15 Albumin/Globulin Ratio 1.2 (1.0-1.8) 07/18/17 12:15 Triglycerides 61 mg/dL (<150) 07/18/17 12:15 Cholesterol 207 mg/dL (<200) H 07/18/17 12:15 LDL Cholesterol Direct 127 mg/dL (75-193) 07/18/17 12:15 HDL Cholesterol 61 mg/dL (23-92) 07/18/17 12:15 TSH 2.79 uIU/ml (0.34-5.60) 07/18/17 12:15 Salicylates < 25.0 mg/L (30.0-100.0) L 07/18/17 12:15 Acetaminophen < 10.0 ug/mL (10.0-30.0) L 07/18/17 12:15 Ethyl Alcohol < 10 mg/dL (0-10) 07/18/17 12:15 RPR NONREACTIVE (NONREACTIVE) 07/18/17 12:15 - Physical Exam Vitals and I&O: Vital Signs Temp 96.9 F 07/25/17 15:09 Pulse 90 07/25/17 20:00 Resp 20 07/25/17 20:00 BP 120/81 07/25/17 15:09 Pulse Ox 97 07/25/17 15:09 Intake & Output 07/25/17 07/25/17 07/26/17 06:59 18:59 06:59 Intake Total 120 1500 Balance 120 1500 Intake: Oral 120 1500 Other: # Voids 3 3 Active Medications: Current Medications Acetaminophen (Tylenol) 650 mg PO Q4HR PRN PRN Reason: Mild Pain / Temp above 100 Stop: 09/16/17 15:39 Al Hydrox/Mg Hydrox/Simethicone (Maalox) 30 ml PO Q4HR PRN PRN Reason: GI DISTRESS Stop: 09/16/17 15:39 Chlorpromazine (Thorazine) 50 mg PO BID LEVY PRN Reason: Protocol Stop: 09/17/17 08:59 Last Admin: 07/25/17 16:25 Dose: 50 mg Clonazepam (Klonopin) 2 mg PO BID LEVY PRN Reason: Protocol Stop: 09/17/17 08:59 Last Admin: 07/25/17 16:24 Dose: 2 mg Docusate Sodium (Colace) 100 mg PO BID LEVY Stop: 09/17/17 08:59 Last Admin: 07/25/17 16:24 Dose: 100 mg Famotidine (Pepcid) 20 mg PO DAILY LEVY Stop: 09/17/17 08:59 Last Admin: 07/25/17 08:26 Dose: 20 mg Ferrous Sulfate (Iron) 325 mg PO DAILY LEVY Stop: 09/17/17 08:59 Last Admin: 07/25/17 08:26 Dose: 325 mg Haloperidol (Haldol) 10 mg PO BID LEVY PRN Reason: Protocol Stop: 09/17/17 08:59 Last Admin: 07/25/17 16:24 Dose: 10 mg Levothyroxine Sodium (Synthroid) 0.05 mg PO QDAC LEVY Stop: 09/17/17 07:29 Last Admin: 07/25/17 07:19 Dose: Not Given Lorazepam (Ativan) 0.5 mg PO Q4HR PRN; Protocol PRN Reason: Anxiety Stop: 08/17/17 15:39 Last Admin: 07/24/17 22:45 Dose: 0.5 mg Magnesium Hydroxide (Milk Of Magnesia) 30 ml PO DAILY PRN PRN Reason: Constipation Stop: 09/16/17 19:35 Quetiapine Fumarate (Seroquel) 400 mg PO BID ELVY PRN Reason: Protocol Stop: 09/17/17 08:59 Last Admin: 07/25/17 16:24 Dose: 400 mg Valproate Sodium (Depakene) 500 mg PO BID LEVY PRN Reason: Protocol Stop: 09/17/17 10:59 Last Admin: 07/25/17 16:23 Dose: 500 mg Zolpidem Tartrate (Ambien) 5 mg PO HS PRN PRN Reason: Insomnia Stop: 09/16/17 15:39 Last Admin: 07/24/17 22:39 Dose: 5 mg General: demented HEENT: NC/AT, PERRLA, EOMI, anicteric sclerae, throat clear Neck: Supple, No JVD, No thyromegaly, +2 carotid pulse wo bruit, No LAD Lungs: CTAB Cardiovascular: Normal S1, Normal S2, without murmur Abdomen: non-tender, non-distended Extremities: rash Neurological: no change - Procedures Procedures: Procedures Procedure Code Date INDIVID PSYCHOTHERAP NEC 94.39 06/08/08 OTHER GROUP THERAPY 94.44 06/08/08 Internal Medicine Assmt/Plan - Assessment Assessment: 1.HYPOTHYROIDISM 2.DEMENTIA. - Plan Plan: CONTINUE ON CURRENT MEDICATION AND DIET. Nutritional Asmnt/Malnutr-PDOC - Dietary Evaluation Malnutrition Findings (Please click <Entered> for more info): Nutritional Asmnt/Malnutrition Start: 07/22/17 16: 21 Text: Status: Complete Freq: Document 07/22/17 16:21 FLORY (Rec: 07/22/17 16:35 [email or web address] [email or web address]) Nutritional Asmnt/Malnutrition Patient General Information Nutritional Screening Moderate Risk Diagnosis psychosis Pertinent Medical Hx/Surgical Hx hypothyroidism, chronic anemia , chronic constipation, dementia, psychosis Subjective Information Pt seen lying in bed at time of visit, confused. Pt reported good appetite, would like coffee with meal tray. Per EMR PO intake 1005. Current Diet Order/ Nutrition Support regular Pertinent Medications coalce, Iron, synthroid, seroquel Pertinent Labs 07/18 Na 133, glucose 128, A1c 6.8 Nutritional Hx/Data Height 1.6 m Height (Calculated Centimeters) 160.0 Current Weight (lbs) 93.894 kg Weight (Calculated Kilograms) 93.9 Weight (Calculated Grams) 74333.6 [place] Body Weight 115 Body Mass Index (BMI) 36.6 Weight Status Obese GI Symptoms GI Symptoms None Last BM 07/22 Difficult in: None Skin Integrity/Comment: blackened to left dorsal medical foot Current %PO Good (75-100%) Estimated Nutritional Goals BEE in Kcals: Using Current wt Calories/Kcals/Kg 25-30 Kcals Calculated 7849-4154 Protein: Using Current wt Protein g/k Protein Calculated 63 Fluid: ml 1575-1890ml (1ml/kcal) Nutritional Problem No current Nutrition Prob Problem N/A Malnutrition Alert Protein-Calorie Malnutrition N/A Is there a minimum of two criteria No selected? Query Text:Check all the applicable criteria. A minimum of two criteria are recommended for diagnosis of either severe or non-severe malnutrition. Intervention/Recommendation Comments 1. Continue with current diet as ordered. 2. Monitor PO intake, wt, labs and skin integrity 3. F/U as low risk in 7 days, 07/29 Expected Outcomes/Goals Expected Outcomes/Goals 1. PO intake to meet at least 75% of nutritional needs. 2. Wt stability, skin to remain intact, labs to approach WNL.
--- NOTE | 2017-07-26 00:20 | Progress Notes ---
DATE: 07/25/2017 SUBJECTIVE: Case is discussed with staff of the patient and reviewed records. The patient continues to have episodes of yelling and screaming, but in general the staff believes she is doing better, sleeping better, eating better, so that was not the case till recently in the last day, so she continues to do well, I will be discharging tomorrow. No side effects with the medication, no sedation, no nausea, and no extrapyramidal symptoms and we will continue to work with the patient in group therapy, milieu therapy, adjust medications as needed. JOB# [id number]
[2017-07-26] MEDS: Levothyroxine 0.05 Mg Tab PO SCH (06:40)
[2017-07-26] MEDS ORDERED: chlorproMAZINE 25 mg/mL 2mL Amp ONE (07:57)
[2017-07-26] MEDS ORDERED: chlorproMAZINE 25 mg/mL 2mL Amp IM STA (07:57)
[2017-07-26] MEDS: Multivitamin w/ Minerals Tab PO SCH (08:24)
[2017-07-26] MEDS: Ferrous Sulfate 325 MG TAB PO SCH (08:25)
--- NOTE | 2017-07-26 22:24 | Internal Medicine Prog Note ---
Internal Medicine Subjective - Subjective Service Date: 07/26/17 Patient seen and examined:: with staff Patient is:: verbal, in wheelchair, confused Per staff patient has:: no adverse event (SHE HAS REDNESS OF LEFT SHOLDER SKIN) Internal Medicine Objective - Results Result Diagrams: 07/18/17 12:15 07/18/17 12:15 Recent Labs: Laboratory Last Values WBC 7.4 Th/cmm (4.8-10.8) 07/18/17 12:15 RBC 4.12 Mil/cmm (3.80-5.10) 07/18/17 12:15 Hgb 11.5 gm/dL (12-16) L 07/18/17 12:15 Hct 34.7 % (41.0-60) L 07/18/17 12:15 MCV 84.3 fl (81-100) 07/18/17 12:15 MCH 28.0 pg (27.0-31.0) 07/18/17 12:15 MCHC Differential 33.2 pg (28.0-36.0) 07/18/17 12:15 RDW 15.9 % (11.5-20.0) 07/18/17 12:15 Plt Count 186 Th/cmm (150-400) 07/18/17 12:15 MPV 8.4 fl 07/18/17 12:15 Neutrophils % 61.1 % (40.0-80.0) 07/18/17 12:15 Lymphocytes % 23.7 % (20.0-50.0) 07/18/17 12:15 Monocytes % 13.2 % (2.0-10.0) H 07/18/17 12:15 Eosinophils % 1.3 % (0.0-5.0) 07/18/17 12:15 Basophils % 0.7 % (0.0-2.0) 07/18/17 12:15 Sodium 133 mEq/L (136-145) L 07/18/17 12:15 Potassium 4.0 mEq/L (3.5-5.1) 07/18/17 12:15 Chloride 98 mEq/L (98-107) 07/18/17 12:15 Carbon Dioxide 27.8 mEq/L (21.0-31.0) 07/18/17 12:15 Anion Gap 11.2 (7.0-16.0) 07/18/17 12:15 BUN 10 mg/dL (7-25) 07/18/17 12:15 Creatinine 0.6 mg/dL (0.6-1.2) 07/18/17 12:15 Est GFR ( Amer) > 60.0 ml/min (>90) 07/18/17 12:15 Est GFR (Non-Af Amer) > 60.0 ml/min 07/18/17 12:15 BUN/Creatinine Ratio 16.7 07/18/17 12:15 Glucose 128 mg/dL (70-105) H 07/18/17 12:15 Hemoglobin A1c % 6.8 % (4.0-6.0) H 07/18/17 12:15 Calcium 9.2 mg/dL (8.6-10.3) 07/18/17 12:15 Total Bilirubin 0.2 mg/dL (0.3-1.0) L 07/18/17 12:15 AST 12 U/L (13-39) L 07/18/17 12:15 ALT 8 U/L (7-52) 07/18/17 12:15 Alkaline Phosphatase 153 U/L (34-104) H 07/18/17 12:15 Total Protein 6.7 gm/dL (6.0-8.3) 07/18/17 12:15 Albumin 3.7 gm/dL (3.7-5.3) 07/18/17 12:15 Globulin 3.0 gm/dL 07/18/17 12:15 Albumin/Globulin Ratio 1.2 (1.0-1.8) 07/18/17 12:15 Triglycerides 61 mg/dL (<150) 07/18/17 12:15 Cholesterol 207 mg/dL (<200) H 07/18/17 12:15 LDL Cholesterol Direct 127 mg/dL (75-193) 07/18/17 12:15 HDL Cholesterol 61 mg/dL (23-92) 07/18/17 12:15 TSH 2.79 uIU/ml (0.34-5.60) 07/18/17 12:15 Salicylates < 25.0 mg/L (30.0-100.0) L 07/18/17 12:15 Acetaminophen < 10.0 ug/mL (10.0-30.0) L 07/18/17 12:15 Ethyl Alcohol < 10 mg/dL (0-10) 07/18/17 12:15 RPR NONREACTIVE (NONREACTIVE) 07/18/17 12:15 - Physical Exam Vitals and I&O: Vital Signs Temp 98.0 F 07/26/17 14:00 Pulse 96 07/26/17 14:00 Resp 20 07/26/17 14:00 BP 124/78 07/26/17 14:00 Pulse Ox 97 07/26/17 14:00 Intake & Output 07/26/17 07/26/17 07/27/17 06:59 18:59 06:59 Intake Total 320 900 Output Total 1 Balance 319 900 Intake: Oral 320 900 Output: Urine 1 Other: # Voids 3 # Bowel Movements 0 Active Medications: Current Medications Acetaminophen (Tylenol) 650 mg PO Q4HR PRN PRN Reason: Mild Pain / Temp above 100 Stop: 09/16/17 15:39 Al Hydrox/Mg Hydrox/Simethicone (Maalox) 30 ml PO Q4HR PRN PRN Reason: GI DISTRESS Stop: 09/16/17 15:39 Chlorpromazine (Thorazine) 50 mg PO BID LEVY PRN Reason: Protocol Stop: 09/17/17 08:59 Last Admin: 07/26/17 16:08 Dose: 50 mg Clonazepam (Klonopin) 2 mg PO BID LEVY PRN Reason: Protocol Stop: 09/17/17 08:59 Last Admin: 07/26/17 16:07 Dose: 2 mg Docusate Sodium (Colace) 100 mg PO BID LEVY Stop: 09/17/17 08:59 Last Admin: 07/26/17 16:07 Dose: 100 mg Famotidine (Pepcid) 20 mg PO DAILY LEVY Stop: 09/17/17 08:59 Last Admin: 07/26/17 08:25 Dose: 20 mg Ferrous Sulfate (Iron) 325 mg PO DAILY LEVY Stop: 09/17/17 08:59 Last Admin: 07/26/17 08:25 Dose: 325 mg Haloperidol (Haldol) 10 mg PO BID LEVY PRN Reason: Protocol Stop: 09/17/17 08:59 Last Admin: 07/26/17 16:07 Dose: 10 mg Levothyroxine Sodium (Synthroid) 0.05 mg PO QDAC LEVY Stop: 09/17/17 07:29 Last Admin: 07/26/17 06:40 Dose: 0.05 mg Lorazepam (Ativan) 0.5 mg PO Q4HR PRN; Protocol PRN Reason: Anxiety Stop: 08/17/17 15:39 Last Admin: 07/26/17 14:14 Dose: 0.5 mg Magnesium Hydroxide (Milk Of Magnesia) 30 ml PO DAILY PRN PRN Reason: Constipation Stop: 09/16/17 19:35 Quetiapine Fumarate (Seroquel) 400 mg PO BID LEVY PRN Reason: Protocol Stop: 09/17/17 08:59 Last Admin: 07/26/17 16:07 Dose: 400 mg Valproate Sodium (Depakene) 500 mg PO BID LEVY PRN Reason: Protocol Stop: 09/17/17 10:59 Last Admin: 07/26/17 16:07 Dose: 500 mg Zolpidem Tartrate (Ambien) 5 mg PO HS PRN PRN Reason: Insomnia Stop: 09/16/17 15:39 Last Admin: 07/24/17 22:39 Dose: 5 mg General: demented HEENT: NC/AT, PERRLA, EOMI, anicteric sclerae, throat clear Neck: Supple, No JVD, No thyromegaly, +2 carotid pulse wo bruit, No LAD Lungs: CTAB Cardiovascular: Normal S1, Normal S2, without murmur Abdomen: non-tender, non-distended Extremities: rash Neurological: no change - Procedures Procedures: Procedures Procedure Code Date INDIVID PSYCHOTHERAP NEC 94.39 06/08/08 OTHER GROUP THERAPY 94.44 06/08/08 Internal Medicine Assmt/Plan - Assessment Assessment: 1.HYPOTHYROIDISM 2.DEMENTIA. - Plan Plan: CONTINUE ON CURRENT MEDICATION AND DIET. Nutritional Asmnt/Malnutr-PDOC - Dietary Evaluation Malnutrition Findings (Please click <Entered> for more info): Nutritional Asmnt/Malnutrition Start: 07/22/17 16: 21 Text: Status: Complete Freq: Document 07/22/17 16:21 FLORY (Rec: 07/22/17 16:35 FLORY [email or web address]) Nutritional Asmnt/Malnutrition Patient General Information Nutritional Screening Moderate Risk Diagnosis psychosis Pertinent Medical Hx/Surgical Hx hypothyroidism, chronic anemia , chronic constipation, dementia, psychosis Subjective Information Pt seen lying in bed at time of visit, confused. Pt reported good appetite, would like coffee with meal tray. Per EMR PO intake 1005. Current Diet Order/ Nutrition Support regular Pertinent Medications coalce, Iron, synthroid, seroquel Pertinent Labs 07/18 Na 133, glucose 128, A1c 6.8 Nutritional Hx/Data Height 1.6 m Height (Calculated Centimeters) 160.0 Current Weight (lbs) 93.894 kg Weight (Calculated Kilograms) 93.9 Weight (Calculated Grams) 33691.6 [place] Body Weight 115 Body Mass Index (BMI) 36.6 Weight Status Obese GI Symptoms GI Symptoms None Last BM 07/22 Difficult in: None Skin Integrity/Comment: blackened to left dorsal medical foot Current %PO Good (75-100%) Estimated Nutritional Goals BEE in Kcals: Using Current wt Calories/Kcals/Kg 25-30 Kcals Calculated 7287-6454 Protein: Using Current wt Protein g/k Protein Calculated 63 Fluid: ml 1575-1890ml (1ml/kcal) Nutritional Problem No current Nutrition Prob Problem N/A Malnutrition Alert Protein-Calorie Malnutrition N/A Is there a minimum of two criteria No selected? Query Text:Check all the applicable criteria. A minimum of two criteria are recommended for diagnosis of either severe or non-severe malnutrition. Intervention/Recommendation Comments 1. Continue with current diet as ordered. 2. Monitor PO intake, wt, labs and skin integrity 3. F/U as low risk in 7 days, 07/29 Expected Outcomes/Goals Expected Outcomes/Goals 1. PO intake to meet at least 75% of nutritional needs. 2. Wt stability, skin to remain intact, labs to approach WNL.
--- NOTE | 2017-07-26 23:21 | Progress Notes ---
DATE: 07/26/2017 SUBJECTIVE: Case was discussed with the staff of the patient and reviewed records. The patient continues to have episodes of yelling and screaming, started yelling and screaming yesterday, though we talked yesterday morning that she is starting to get better; however, she is still unpredictable, impulsive, easily agitated, very loud. Apparently Sincere Sanchez does not want to take her anymore because of her behavior. No side effects with the medication, no sedation, no nausea, no extrapyramidal symptoms. She is on a good dose of medication and probably just needs more time to be stabilized on the current medications and we will continue outpatient group therapy, milieu therapy, and adjust medications as needed. [facility]# [id number]
[2017-07-27] MEDS: Levothyroxine 0.05 Mg Tab PO SCH (06:39)
[2017-07-27] MEDS: Ferrous Sulfate 325 MG TAB PO SCH (09:07)
[2017-07-27] MEDS: Multivitamin w/ Minerals Tab PO SCH (09:07)
--- NOTE | 2017-07-27 17:55 | Internal Medicine Prog Note ---
Internal Medicine Subjective - Subjective Service Date: 07/27/17 Patient seen and examined:: with staff Patient is:: verbal, in wheelchair, confused Per staff patient has:: no adverse event (SHE HAS REDNESS OF LEFT SHOLDER SKIN) Internal Medicine Objective - Results Result Diagrams: 07/18/17 12:15 07/18/17 12:15 Recent Labs: Laboratory Last Values WBC 7.4 Th/cmm (4.8-10.8) 07/18/17 12:15 RBC 4.12 Mil/cmm (3.80-5.10) 07/18/17 12:15 Hgb 11.5 gm/dL (12-16) L 07/18/17 12:15 Hct 34.7 % (41.0-60) L 07/18/17 12:15 MCV 84.3 fl (81-100) 07/18/17 12:15 MCH 28.0 pg (27.0-31.0) 07/18/17 12:15 MCHC Differential 33.2 pg (28.0-36.0) 07/18/17 12:15 RDW 15.9 % (11.5-20.0) 07/18/17 12:15 Plt Count 186 Th/cmm (150-400) 07/18/17 12:15 MPV 8.4 fl 07/18/17 12:15 Neutrophils % 61.1 % (40.0-80.0) 07/18/17 12:15 Lymphocytes % 23.7 % (20.0-50.0) 07/18/17 12:15 Monocytes % 13.2 % (2.0-10.0) H 07/18/17 12:15 Eosinophils % 1.3 % (0.0-5.0) 07/18/17 12:15 Basophils % 0.7 % (0.0-2.0) 07/18/17 12:15 Sodium 133 mEq/L (136-145) L 07/18/17 12:15 Potassium 4.0 mEq/L (3.5-5.1) 07/18/17 12:15 Chloride 98 mEq/L (98-107) 07/18/17 12:15 Carbon Dioxide 27.8 mEq/L (21.0-31.0) 07/18/17 12:15 Anion Gap 11.2 (7.0-16.0) 07/18/17 12:15 BUN 10 mg/dL (7-25) 07/18/17 12:15 Creatinine 0.6 mg/dL (0.6-1.2) 07/18/17 12:15 Est GFR ( Amer) > 60.0 ml/min (>90) 07/18/17 12:15 Est GFR (Non-Af Amer) > 60.0 ml/min 07/18/17 12:15 BUN/Creatinine Ratio 16.7 07/18/17 12:15 Glucose 128 mg/dL (70-105) H 07/18/17 12:15 Hemoglobin A1c % 6.8 % (4.0-6.0) H 07/18/17 12:15 Calcium 9.2 mg/dL (8.6-10.3) 07/18/17 12:15 Total Bilirubin 0.2 mg/dL (0.3-1.0) L 07/18/17 12:15 AST 12 U/L (13-39) L 07/18/17 12:15 ALT 8 U/L (7-52) 07/18/17 12:15 Alkaline Phosphatase 153 U/L (34-104) H 07/18/17 12:15 Total Protein 6.7 gm/dL (6.0-8.3) 07/18/17 12:15 Albumin 3.7 gm/dL (3.7-5.3) 07/18/17 12:15 Globulin 3.0 gm/dL 07/18/17 12:15 Albumin/Globulin Ratio 1.2 (1.0-1.8) 07/18/17 12:15 Triglycerides 61 mg/dL (<150) 07/18/17 12:15 Cholesterol 207 mg/dL (<200) H 07/18/17 12:15 LDL Cholesterol Direct 127 mg/dL (75-193) 07/18/17 12:15 HDL Cholesterol 61 mg/dL (23-92) 07/18/17 12:15 TSH 2.79 uIU/ml (0.34-5.60) 07/18/17 12:15 Salicylates < 25.0 mg/L (30.0-100.0) L 07/18/17 12:15 Acetaminophen < 10.0 ug/mL (10.0-30.0) L 07/18/17 12:15 Ethyl Alcohol < 10 mg/dL (0-10) 07/18/17 12:15 RPR NONREACTIVE (NONREACTIVE) 07/18/17 12:15 - Physical Exam Vitals and I&O: Vital Signs Temp 98.0 F 07/27/17 16:01 Pulse 98 07/27/17 16:01 Resp 20 07/27/17 16:01 BP 137/72 07/27/17 16:01 Pulse Ox 97 07/27/17 16:01 Intake & Output 07/26/17 07/27/17 07/27/17 18:59 06:59 18:59 Intake Total 900 Balance 900 Intake: Oral 900 Other: # Voids 3 # Bowel Movements 0 Active Medications: Current Medications Acetaminophen (Tylenol) 650 mg PO Q4HR PRN PRN Reason: Mild Pain / Temp above 100 Stop: 09/16/17 15:39 Al Hydrox/Mg Hydrox/Simethicone (Maalox) 30 ml PO Q4HR PRN PRN Reason: GI DISTRESS Stop: 09/16/17 15:39 Chlorpromazine (Thorazine) 50 mg PO BID LEVY PRN Reason: Protocol Stop: 09/17/17 08:59 Last Admin: 07/27/17 16:23 Dose: 50 mg Clonazepam (Klonopin) 2 mg PO BID LEVY PRN Reason: Protocol Stop: 09/17/17 08:59 Last Admin: 07/27/17 16:23 Dose: 2 mg Docusate Sodium (Colace) 100 mg PO BID LEVY Stop: 09/17/17 08:59 Last Admin: 07/27/17 16:23 Dose: 100 mg Famotidine (Pepcid) 20 mg PO DAILY LEVY Stop: 09/17/17 08:59 Last Admin: 07/27/17 09:06 Dose: 20 mg Ferrous Sulfate (Iron) 325 mg PO DAILY LEVY Stop: 09/17/17 08:59 Last Admin: 07/27/17 09:07 Dose: 325 mg Haloperidol (Haldol) 10 mg PO BID LEVY PRN Reason: Protocol Stop: 09/17/17 08:59 Last Admin: 07/27/17 16:23 Dose: 10 mg Levothyroxine Sodium (Synthroid) 0.05 mg PO QDAC LEVY Stop: 09/17/17 07:29 Last Admin: 07/27/17 06:39 Dose: 0.05 mg Lorazepam (Ativan) 0.5 mg PO Q4HR PRN; Protocol PRN Reason: Anxiety Stop: 08/17/17 15:39 Last Admin: 07/27/17 13:55 Dose: 0.5 mg Magnesium Hydroxide (Milk Of Magnesia) 30 ml PO DAILY PRN PRN Reason: Constipation Stop: 09/16/17 19:35 Quetiapine Fumarate (Seroquel) 400 mg PO BID LEVY PRN Reason: Protocol Stop: 09/17/17 08:59 Last Admin: 07/27/17 16:23 Dose: 400 mg Valproate Sodium (Depakene) 500 mg PO BID LEVY PRN Reason: Protocol Stop: 09/17/17 10:59 Last Admin: 07/27/17 16:23 Dose: 500 mg Zolpidem Tartrate (Ambien) 5 mg PO HS PRN PRN Reason: Insomnia Stop: 09/16/17 15:39 Last Admin: 07/24/17 22:39 Dose: 5 mg General: demented HEENT: NC/AT, PERRLA, EOMI, anicteric sclerae, throat clear Neck: Supple, No JVD, No thyromegaly, +2 carotid pulse wo bruit, No LAD Lungs: CTAB Cardiovascular: Normal S1, Normal S2, without murmur Abdomen: non-tender, non-distended Extremities: rash Neurological: no change - Procedures Procedures: Procedures Procedure Code Date INDIVID PSYCHOTHERAP NEC 94.39 06/08/08 OTHER GROUP THERAPY 94.44 06/08/08 Internal Medicine Assmt/Plan - Assessment Assessment: 1.HYPOTHYROIDISM 2.DEMENTIA. - Plan Plan: CONTINUE ON CURRENT MEDICATION AND DIET. Nutritional Asmnt/Malnutr-PDOC - Dietary Evaluation Malnutrition Findings (Please click <Entered> for more info): Nutritional Asmnt/Malnutrition Start: 07/22/17 16: 21 Text: Status: Complete Freq: Document 07/22/17 16:21 FLORY (Rec: 07/22/17 16:35 FLORYG [email or web address]) Nutritional Asmnt/Malnutrition Patient General Information Nutritional Screening Moderate Risk Diagnosis psychosis Pertinent Medical Hx/Surgical Hx hypothyroidism, chronic anemia , chronic constipation, dementia, psychosis Subjective Information Pt seen lying in bed at time of visit, confused. Pt reported good appetite, would like coffee with meal tray. Per EMR PO intake 1005. Current Diet Order/ Nutrition Support regular Pertinent Medications coalce, Iron, synthroid, seroquel Pertinent Labs 07/18 Na 133, glucose 128, A1c 6.8 Nutritional Hx/Data Height 1.6 m Height (Calculated Centimeters) 160.0 Current Weight (lbs) 93.894 kg Weight (Calculated Kilograms) 93.9 Weight (Calculated Grams) 55137.6 [place] Body Weight 115 Body Mass Index (BMI) 36.6 Weight Status Obese GI Symptoms GI Symptoms None Last BM 07/22 Difficult in: None Skin Integrity/Comment: blackened to left dorsal medical foot Current %PO Good (75-100%) Estimated Nutritional Goals BEE in Kcals: Using Current wt Calories/Kcals/Kg 25-30 Kcals Calculated 7134-2224 Protein: Using Current wt Protein g/k Protein Calculated 63 Fluid: ml 1575-1890ml (1ml/kcal) Nutritional Problem No current Nutrition Prob Problem N/A Malnutrition Alert Protein-Calorie Malnutrition N/A Is there a minimum of two criteria No selected? Query Text:Check all the applicable criteria. A minimum of two criteria are recommended for diagnosis of either severe or non-severe malnutrition. Intervention/Recommendation Comments 1. Continue with current diet as ordered. 2. Monitor PO intake, wt, labs and skin integrity 3. F/U as low risk in 7 days, 07/29 Expected Outcomes/Goals Expected Outcomes/Goals 1. PO intake to meet at least 75% of nutritional needs. 2. Wt stability, skin to remain intact, labs to approach WNL.
--- NOTE | 2017-07-27 21:42 | Progress Notes ---
DATE: 07/27/2017 SUBJECTIVE: The patient is well known to this clinician, yelling episodes, screaming episodes, very loud, agitated, impulsive, unpredictable, screaming to go home. The patient with very impulsive and unpredictable behaviors to go at this time. She is considered currently gravely disabled. Eating fairly well. Screaming for coffee. The patient with toe stripper awakenings. ASSESSMENT: The patient was screaming, yelling episodes, screaming episodes. Not safe for a lower level of care. Medications were noted. We will monitor and follow up. Continue to titrate and adjust her medications. JOB# [id number]
[2017-07-28] MEDS: Levothyroxine 0.05 Mg Tab PO SCH (06:34)
[2017-07-28] MEDS: Multivitamin w/ Minerals Tab PO SCH (09:09)
[2017-07-28] MEDS: Ferrous Sulfate 325 MG TAB PO SCH (09:11)
--- NOTE | 2017-07-28 20:11 | Internal Medicine Prog Note ---
Internal Medicine Subjective - Subjective Service Date: 07/28/17 Patient seen and examined:: with staff Patient is:: verbal, in wheelchair, confused Per staff patient has:: no adverse event (SHE HAS REDNESS OF LEFT SHOLDER SKIN) Internal Medicine Objective - Results Result Diagrams: 07/18/17 12:15 07/18/17 12:15 Recent Labs: Laboratory Last Values WBC 7.4 Th/cmm (4.8-10.8) 07/18/17 12:15 RBC 4.12 Mil/cmm (3.80-5.10) 07/18/17 12:15 Hgb 11.5 gm/dL (12-16) L 07/18/17 12:15 Hct 34.7 % (41.0-60) L 07/18/17 12:15 MCV 84.3 fl (81-100) 07/18/17 12:15 MCH 28.0 pg (27.0-31.0) 07/18/17 12:15 MCHC Differential 33.2 pg (28.0-36.0) 07/18/17 12:15 RDW 15.9 % (11.5-20.0) 07/18/17 12:15 Plt Count 186 Th/cmm (150-400) 07/18/17 12:15 MPV 8.4 fl 07/18/17 12:15 Neutrophils % 61.1 % (40.0-80.0) 07/18/17 12:15 Lymphocytes % 23.7 % (20.0-50.0) 07/18/17 12:15 Monocytes % 13.2 % (2.0-10.0) H 07/18/17 12:15 Eosinophils % 1.3 % (0.0-5.0) 07/18/17 12:15 Basophils % 0.7 % (0.0-2.0) 07/18/17 12:15 Sodium 133 mEq/L (136-145) L 07/18/17 12:15 Potassium 4.0 mEq/L (3.5-5.1) 07/18/17 12:15 Chloride 98 mEq/L (98-107) 07/18/17 12:15 Carbon Dioxide 27.8 mEq/L (21.0-31.0) 07/18/17 12:15 Anion Gap 11.2 (7.0-16.0) 07/18/17 12:15 BUN 10 mg/dL (7-25) 07/18/17 12:15 Creatinine 0.6 mg/dL (0.6-1.2) 07/18/17 12:15 Est GFR ( Amer) > 60.0 ml/min (>90) 07/18/17 12:15 Est GFR (Non-Af Amer) > 60.0 ml/min 07/18/17 12:15 BUN/Creatinine Ratio 16.7 07/18/17 12:15 Glucose 128 mg/dL (70-105) H 07/18/17 12:15 Hemoglobin A1c % 6.8 % (4.0-6.0) H 07/18/17 12:15 Calcium 9.2 mg/dL (8.6-10.3) 07/18/17 12:15 Total Bilirubin 0.2 mg/dL (0.3-1.0) L 07/18/17 12:15 AST 12 U/L (13-39) L 07/18/17 12:15 ALT 8 U/L (7-52) 07/18/17 12:15 Alkaline Phosphatase 153 U/L (34-104) H 07/18/17 12:15 Total Protein 6.7 gm/dL (6.0-8.3) 07/18/17 12:15 Albumin 3.7 gm/dL (3.7-5.3) 07/18/17 12:15 Globulin 3.0 gm/dL 07/18/17 12:15 Albumin/Globulin Ratio 1.2 (1.0-1.8) 07/18/17 12:15 Triglycerides 61 mg/dL (<150) 07/18/17 12:15 Cholesterol 207 mg/dL (<200) H 07/18/17 12:15 LDL Cholesterol Direct 127 mg/dL (75-193) 07/18/17 12:15 HDL Cholesterol 61 mg/dL (23-92) 07/18/17 12:15 TSH 2.79 uIU/ml (0.34-5.60) 07/18/17 12:15 Salicylates < 25.0 mg/L (30.0-100.0) L 07/18/17 12:15 Acetaminophen < 10.0 ug/mL (10.0-30.0) L 07/18/17 12:15 Ethyl Alcohol < 10 mg/dL (0-10) 07/18/17 12:15 RPR NONREACTIVE (NONREACTIVE) 07/18/17 12:15 - Physical Exam Vitals and I&O: Vital Signs Temp 97.4 F 07/28/17 14:26 Pulse 96 07/28/17 14:26 Resp 20 07/28/17 14:26 BP 123/90 07/28/17 14:26 Pulse Ox 97 07/28/17 14:26 Intake & Output 07/28/17 07/28/17 07/29/17 06:59 18:59 06:59 Intake Total 120 1500 Balance 120 1500 Intake: Oral 120 1500 Other: # Voids 3 4 Active Medications: Current Medications Acetaminophen (Tylenol) 650 mg PO Q4HR PRN PRN Reason: Mild Pain / Temp above 100 Stop: 09/16/17 15:39 Al Hydrox/Mg Hydrox/Simethicone (Maalox) 30 ml PO Q4HR PRN PRN Reason: GI DISTRESS Stop: 09/16/17 15:39 Chlorpromazine (Thorazine) 50 mg PO BID LEVY PRN Reason: Protocol Stop: 09/17/17 08:59 Last Admin: 07/28/17 16:40 Dose: 50 mg Clonazepam (Klonopin) 2 mg PO BID LEVY PRN Reason: Protocol Stop: 09/17/17 08:59 Last Admin: 07/28/17 16:40 Dose: 2 mg Docusate Sodium (Colace) 100 mg PO BID LEVY Stop: 09/17/17 08:59 Last Admin: 07/28/17 16:40 Dose: 100 mg Famotidine (Pepcid) 20 mg PO DAILY LEVY Stop: 09/17/17 08:59 Last Admin: 07/28/17 09:11 Dose: 20 mg Ferrous Sulfate (Iron) 325 mg PO DAILY LEVY Stop: 09/17/17 08:59 Last Admin: 07/28/17 09:11 Dose: 325 mg Haloperidol (Haldol) 10 mg PO BID LEVY PRN Reason: Protocol Stop: 09/17/17 08:59 Last Admin: 07/28/17 16:40 Dose: 10 mg Levothyroxine Sodium (Synthroid) 0.05 mg PO QDAC LEVY Stop: 09/17/17 07:29 Last Admin: 07/28/17 06:34 Dose: 0.05 mg Lorazepam (Ativan) 0.5 mg PO Q4HR PRN; Protocol PRN Reason: Anxiety Stop: 08/17/17 15:39 Last Admin: 07/27/17 21:47 Dose: 0.5 mg Magnesium Hydroxide (Milk Of Magnesia) 30 ml PO DAILY PRN PRN Reason: Constipation Stop: 09/16/17 19:35 Quetiapine Fumarate (Seroquel) 400 mg PO BID LEVY PRN Reason: Protocol Stop: 09/17/17 08:59 Last Admin: 07/28/17 16:40 Dose: 400 mg Valproate Sodium (Depakene) 500 mg PO BID LEVY PRN Reason: Protocol Stop: 09/17/17 10:59 Last Admin: 07/28/17 16:39 Dose: 500 mg Zolpidem Tartrate (Ambien) 5 mg PO HS PRN PRN Reason: Insomnia Stop: 09/16/17 15:39 Last Admin: 07/27/17 21:47 Dose: 5 mg General: demented HEENT: NC/AT, PERRLA, EOMI, anicteric sclerae, throat clear Neck: Supple, No JVD, No thyromegaly, +2 carotid pulse wo bruit, No LAD Lungs: CTAB Cardiovascular: Normal S1, Normal S2, without murmur Abdomen: non-tender, non-distended Extremities: rash Neurological: no change - Procedures Procedures: Procedures Procedure Code Date INDIVID PSYCHOTHERAP NEC 94.39 06/08/08 OTHER GROUP THERAPY 94.44 06/08/08 Internal Medicine Assmt/Plan - Assessment Assessment: 1.HYPOTHYROIDISM 2.DEMENTIA. - Plan Plan: CONTINUE ON CURRENT MEDICATION AND DIET. Nutritional Asmnt/Malnutr-PDOC - Dietary Evaluation Malnutrition Findings (Please click <Entered> for more info): Nutritional Asmnt/Malnutrition Start: 07/22/17 16: 21 Text: Status: Complete Freq: Document 07/22/17 16:21 FLORY (Rec: 07/22/17 16:35 FLORYG [email or web address]) Nutritional Asmnt/Malnutrition Patient General Information Nutritional Screening Moderate Risk Diagnosis psychosis Pertinent Medical Hx/Surgical Hx hypothyroidism, chronic anemia , chronic constipation, dementia, psychosis Subjective Information Pt seen lying in bed at time of visit, confused. Pt reported good appetite, would like coffee with meal tray. Per EMR PO intake 1005. Current Diet Order/ Nutrition Support regular Pertinent Medications coalce, Iron, synthroid, seroquel Pertinent Labs 07/18 Na 133, glucose 128, A1c 6.8 Nutritional Hx/Data Height 1.6 m Height (Calculated Centimeters) 160.0 Current Weight (lbs) 93.894 kg Weight (Calculated Kilograms) 93.9 Weight (Calculated Grams) 52376.6 [place] Body Weight 115 Body Mass Index (BMI) 36.6 Weight Status Obese GI Symptoms GI Symptoms None Last BM 07/22 Difficult in: None Skin Integrity/Comment: blackened to left dorsal medical foot Current %PO Good (75-100%) Estimated Nutritional Goals BEE in Kcals: Using Current wt Calories/Kcals/Kg 25-30 Kcals Calculated 6602-9465 Protein: Using Current wt Protein g/k Protein Calculated 63 Fluid: ml 1575-1890ml (1ml/kcal) Nutritional Problem No current Nutrition Prob Problem N/A Malnutrition Alert Protein-Calorie Malnutrition N/A Is there a minimum of two criteria No selected? Query Text:Check all the applicable criteria. A minimum of two criteria are recommended for diagnosis of either severe or non-severe malnutrition. Intervention/Recommendation Comments 1. Continue with current diet as ordered. 2. Monitor PO intake, wt, labs and skin integrity 3. F/U as low risk in 7 days, 07/29 Expected Outcomes/Goals Expected Outcomes/Goals 1. PO intake to meet at least 75% of nutritional needs. 2. Wt stability, skin to remain intact, labs to approach WNL.
--- NOTE | 2017-07-28 20:50 | Progress Notes ---
DATE: 07/28/2017 The patient with yelling episodes, ongoing screaming episodes, "come here, come here, come here, come here," yelling very loud, unruly, disrupting the milieu, nonsensical responses. Medications were reviewed including dosages and frequencies. ASSESSMENT: The patient is demanding loud, eating, also redirection, not safe for a lower level of care. We will continue to monitor and follow up. [facility]# [id number]
[2017-07-29] MEDS: Levothyroxine 0.05 Mg Tab PO SCH (07:16)
[2017-07-29] MEDS: Ferrous Sulfate 325 MG TAB PO SCH (08:53)
[2017-07-29] MEDS: Multivitamin w/ Minerals Tab PO SCH (08:54)
--- NOTE | 2017-07-29 18:08 | Internal Medicine Prog Note ---
Internal Medicine Subjective - Subjective Service Date: 07/29/17 Patient seen and examined:: with staff Patient is:: verbal, in wheelchair, confused Per staff patient has:: no adverse event (SHE HAS REDNESS OF LEFT SHOLDER SKIN) Internal Medicine Objective - Results Result Diagrams: 07/18/17 12:15 07/18/17 12:15 Recent Labs: Laboratory Last Values WBC 7.4 Th/cmm (4.8-10.8) 07/18/17 12:15 RBC 4.12 Mil/cmm (3.80-5.10) 07/18/17 12:15 Hgb 11.5 gm/dL (12-16) L 07/18/17 12:15 Hct 34.7 % (41.0-60) L 07/18/17 12:15 MCV 84.3 fl (81-100) 07/18/17 12:15 MCH 28.0 pg (27.0-31.0) 07/18/17 12:15 MCHC Differential 33.2 pg (28.0-36.0) 07/18/17 12:15 RDW 15.9 % (11.5-20.0) 07/18/17 12:15 Plt Count 186 Th/cmm (150-400) 07/18/17 12:15 MPV 8.4 fl 07/18/17 12:15 Neutrophils % 61.1 % (40.0-80.0) 07/18/17 12:15 Lymphocytes % 23.7 % (20.0-50.0) 07/18/17 12:15 Monocytes % 13.2 % (2.0-10.0) H 07/18/17 12:15 Eosinophils % 1.3 % (0.0-5.0) 07/18/17 12:15 Basophils % 0.7 % (0.0-2.0) 07/18/17 12:15 Sodium 133 mEq/L (136-145) L 07/18/17 12:15 Potassium 4.0 mEq/L (3.5-5.1) 07/18/17 12:15 Chloride 98 mEq/L (98-107) 07/18/17 12:15 Carbon Dioxide 27.8 mEq/L (21.0-31.0) 07/18/17 12:15 Anion Gap 11.2 (7.0-16.0) 07/18/17 12:15 BUN 10 mg/dL (7-25) 07/18/17 12:15 Creatinine 0.6 mg/dL (0.6-1.2) 07/18/17 12:15 Est GFR ( Amer) > 60.0 ml/min (>90) 07/18/17 12:15 Est GFR (Non-Af Amer) > 60.0 ml/min 07/18/17 12:15 BUN/Creatinine Ratio 16.7 07/18/17 12:15 Glucose 128 mg/dL (70-105) H 07/18/17 12:15 Hemoglobin A1c % 6.8 % (4.0-6.0) H 07/18/17 12:15 Calcium 9.2 mg/dL (8.6-10.3) 07/18/17 12:15 Total Bilirubin 0.2 mg/dL (0.3-1.0) L 07/18/17 12:15 AST 12 U/L (13-39) L 07/18/17 12:15 ALT 8 U/L (7-52) 07/18/17 12:15 Alkaline Phosphatase 153 U/L (34-104) H 07/18/17 12:15 Total Protein 6.7 gm/dL (6.0-8.3) 07/18/17 12:15 Albumin 3.7 gm/dL (3.7-5.3) 07/18/17 12:15 Globulin 3.0 gm/dL 07/18/17 12:15 Albumin/Globulin Ratio 1.2 (1.0-1.8) 07/18/17 12:15 Triglycerides 61 mg/dL (<150) 07/18/17 12:15 Cholesterol 207 mg/dL (<200) H 07/18/17 12:15 LDL Cholesterol Direct 127 mg/dL (75-193) 07/18/17 12:15 HDL Cholesterol 61 mg/dL (23-92) 07/18/17 12:15 TSH 2.79 uIU/ml (0.34-5.60) 07/18/17 12:15 Salicylates < 25.0 mg/L (30.0-100.0) L 07/18/17 12:15 Acetaminophen < 10.0 ug/mL (10.0-30.0) L 07/18/17 12:15 Ethyl Alcohol < 10 mg/dL (0-10) 07/18/17 12:15 RPR NONREACTIVE (NONREACTIVE) 07/18/17 12:15 - Physical Exam Vitals and I&O: Vital Signs Temp 96.7 F 07/29/17 14:58 Pulse 84 07/29/17 14:58 Resp 20 07/29/17 14:58 BP 131/85 07/29/17 14:58 Pulse Ox 95 07/29/17 14:58 Intake & Output 07/28/17 07/29/17 07/29/17 18:59 06:59 18:59 Intake Total 1500 300 Balance 1500 300 Intake: Oral 1500 300 Other: # Voids 4 2 # Bowel Movements 0 Active Medications: Current Medications Acetaminophen (Tylenol) 650 mg PO Q4HR PRN PRN Reason: Mild Pain / Temp above 100 Stop: 09/16/17 15:39 Al Hydrox/Mg Hydrox/Simethicone (Maalox) 30 ml PO Q4HR PRN PRN Reason: GI DISTRESS Stop: 09/16/17 15:39 Chlorpromazine (Thorazine) 50 mg PO BID LEVY PRN Reason: Protocol Stop: 09/17/17 08:59 Last Admin: 07/29/17 17:23 Dose: 50 mg Clonazepam (Klonopin) 2 mg PO BID LEVY PRN Reason: Protocol Stop: 09/17/17 08:59 Last Admin: 07/29/17 17:23 Dose: 2 mg Docusate Sodium (Colace) 100 mg PO BID LEVY Stop: 09/17/17 08:59 Last Admin: 07/29/17 17:22 Dose: 100 mg Famotidine (Pepcid) 20 mg PO DAILY LEVY Stop: 09/17/17 08:59 Last Admin: 07/29/17 08:53 Dose: 20 mg Ferrous Sulfate (Iron) 325 mg PO DAILY LEVY Stop: 09/17/17 08:59 Last Admin: 07/29/17 08:53 Dose: 325 mg Haloperidol (Haldol) 10 mg PO BID LEVY PRN Reason: Protocol Stop: 09/17/17 08:59 Last Admin: 07/29/17 17:23 Dose: 10 mg Levothyroxine Sodium (Synthroid) 0.05 mg PO QDAC LEVY Stop: 09/17/17 07:29 Last Admin: 07/29/17 07:16 Dose: 0.05 mg Lorazepam (Ativan) 0.5 mg PO Q4HR PRN; Protocol PRN Reason: Anxiety Stop: 08/17/17 15:39 Last Admin: 07/29/17 03:00 Dose: 0.5 mg Magnesium Hydroxide (Milk Of Magnesia) 30 ml PO DAILY PRN PRN Reason: Constipation Stop: 09/16/17 19:35 Quetiapine Fumarate (Seroquel) 400 mg PO BID LEVY PRN Reason: Protocol Stop: 09/17/17 08:59 Last Admin: 07/29/17 17:23 Dose: 400 mg Valproate Sodium (Depakene) 500 mg PO BID LEVY PRN Reason: Protocol Stop: 09/17/17 10:59 Last Admin: 07/29/17 17:24 Dose: 500 mg Zolpidem Tartrate (Ambien) 5 mg PO HS PRN PRN Reason: Insomnia Stop: 09/16/17 15:39 Last Admin: 07/28/17 20:52 Dose: 5 mg General: demented HEENT: NC/AT, PERRLA, EOMI, anicteric sclerae, throat clear Neck: Supple, No JVD, No thyromegaly, +2 carotid pulse wo bruit, No LAD Lungs: CTAB Cardiovascular: Normal S1, Normal S2, without murmur Abdomen: non-tender, non-distended Extremities: rash Neurological: no change - Procedures Procedures: Procedures Procedure Code Date INDIVID PSYCHOTHERAP NEC 94.39 06/08/08 OTHER GROUP THERAPY 94.44 06/08/08 Internal Medicine Assmt/Plan - Assessment Assessment: 1.HYPOTHYROIDISM 2.DEMENTIA. - Plan Plan: CONTINUE ON CURRENT MEDICATION AND DIET. Nutritional Asmnt/Malnutr-PDOC - Dietary Evaluation Malnutrition Findings (Please click <Entered> for more info): Nutritional Asmnt/Malnutrition Start: 07/22/17 16: 21 Text: Status: Complete Freq: Document 07/22/17 16:21 FLORY (Rec: 07/22/17 16:35 FLORYG [id number]) Nutritional Asmnt/Malnutrition Patient General Information Nutritional Screening Moderate Risk Diagnosis psychosis Pertinent Medical Hx/Surgical Hx hypothyroidism, chronic anemia , chronic constipation, dementia, psychosis Subjective Information Pt seen lying in bed at time of visit, confused. Pt reported good appetite, would like coffee with meal tray. Per EMR PO intake 1005. Current Diet Order/ Nutrition Support regular Pertinent Medications coalce, Iron, synthroid, seroquel Pertinent Labs 07/18 Na 133, glucose 128, A1c 6.8 Nutritional Hx/Data Height 1.6 m Height (Calculated Centimeters) 160.0 Current Weight (lbs) 93.894 kg Weight (Calculated Kilograms) 93.9 Weight (Calculated Grams) 62608.6 [place] Body Weight 115 Body Mass Index (BMI) 36.6 Weight Status Obese GI Symptoms GI Symptoms None Last BM 07/22 Difficult in: None Skin Integrity/Comment: blackened to left dorsal medical foot Current %PO Good (75-100%) Estimated Nutritional Goals BEE in Kcals: Using Current wt Calories/Kcals/Kg 25-30 Kcals Calculated 4628-6825 Protein: Using Current wt Protein g/k Protein Calculated 63 Fluid: ml 1575-1890ml (1ml/kcal) Nutritional Problem No current Nutrition Prob Problem N/A Malnutrition Alert Protein-Calorie Malnutrition N/A Is there a minimum of two criteria No selected? Query Text:Check all the applicable criteria. A minimum of two criteria are recommended for diagnosis of either severe or non-severe malnutrition. Intervention/Recommendation Comments 1. Continue with current diet as ordered. 2. Monitor PO intake, wt, labs and skin integrity 3. F/U as low risk in 7 days, 07/29 Expected Outcomes/Goals Expected Outcomes/Goals 1. PO intake to meet at least 75% of nutritional needs. 2. Wt stability, skin to remain intact, labs to approach WNL.
[2017-07-30] MEDS: Levothyroxine 0.05 Mg Tab PO SCH (06:36)
[2017-07-30] MEDS: Multivitamin w/ Minerals Tab PO SCH (08:42)
[2017-07-30] MEDS: Ferrous Sulfate 325 MG TAB PO SCH (08:42)
--- NOTE | 2017-07-30 10:59 | Progress Notes ---
DATE: 07/29/2017 Case discussed with staff of the patient, reviewed records. The patient continues to be easily agitated, throwing her food, unpredictable, impulsive, needing redirection. Continues to have poor insight. She is with the [facility], unable to make safe plan for self-care. No side effects with the medication, no sedation, no nausea, and no extrapyramidal symptoms. We will continue to work with the patient in group therapy, milieu therapy, and adjust medications as needed. [facility]# [id number]
--- NOTE | 2017-07-30 21:21 | Internal Medicine Prog Note ---
Internal Medicine Subjective - Subjective Service Date: 07/30/17 Patient seen and examined:: with staff Patient is:: verbal, in wheelchair, confused Per staff patient has:: no adverse event (SHE HAS REDNESS OF LEFT SHOLDER SKIN) Internal Medicine Objective - Results Result Diagrams: 07/18/17 12:15 07/18/17 12:15 Recent Labs: Laboratory Last Values WBC 7.4 Th/cmm (4.8-10.8) 07/18/17 12:15 RBC 4.12 Mil/cmm (3.80-5.10) 07/18/17 12:15 Hgb 11.5 gm/dL (12-16) L 07/18/17 12:15 Hct 34.7 % (41.0-60) L 07/18/17 12:15 MCV 84.3 fl (81-100) 07/18/17 12:15 MCH 28.0 pg (27.0-31.0) 07/18/17 12:15 MCHC Differential 33.2 pg (28.0-36.0) 07/18/17 12:15 RDW 15.9 % (11.5-20.0) 07/18/17 12:15 Plt Count 186 Th/cmm (150-400) 07/18/17 12:15 MPV 8.4 fl 07/18/17 12:15 Neutrophils % 61.1 % (40.0-80.0) 07/18/17 12:15 Lymphocytes % 23.7 % (20.0-50.0) 07/18/17 12:15 Monocytes % 13.2 % (2.0-10.0) H 07/18/17 12:15 Eosinophils % 1.3 % (0.0-5.0) 07/18/17 12:15 Basophils % 0.7 % (0.0-2.0) 07/18/17 12:15 Sodium 133 mEq/L (136-145) L 07/18/17 12:15 Potassium 4.0 mEq/L (3.5-5.1) 07/18/17 12:15 Chloride 98 mEq/L (98-107) 07/18/17 12:15 Carbon Dioxide 27.8 mEq/L (21.0-31.0) 07/18/17 12:15 Anion Gap 11.2 (7.0-16.0) 07/18/17 12:15 BUN 10 mg/dL (7-25) 07/18/17 12:15 Creatinine 0.6 mg/dL (0.6-1.2) 07/18/17 12:15 Est GFR ( Amer) > 60.0 ml/min (>90) 07/18/17 12:15 Est GFR (Non-Af Amer) > 60.0 ml/min 07/18/17 12:15 BUN/Creatinine Ratio 16.7 07/18/17 12:15 Glucose 128 mg/dL (70-105) H 07/18/17 12:15 POC Glucose 116 MG/DL (70 - 105) H 07/30/17 16:06 Hemoglobin A1c % 6.8 % (4.0-6.0) H 07/18/17 12:15 Calcium 9.2 mg/dL (8.6-10.3) 07/18/17 12:15 Total Bilirubin 0.2 mg/dL (0.3-1.0) L 07/18/17 12:15 AST 12 U/L (13-39) L 07/18/17 12:15 ALT 8 U/L (7-52) 07/18/17 12:15 Alkaline Phosphatase 153 U/L (34-104) H 07/18/17 12:15 Total Protein 6.7 gm/dL (6.0-8.3) 07/18/17 12:15 Albumin 3.7 gm/dL (3.7-5.3) 07/18/17 12:15 Globulin 3.0 gm/dL 07/18/17 12:15 Albumin/Globulin Ratio 1.2 (1.0-1.8) 07/18/17 12:15 Triglycerides 61 mg/dL (<150) 07/18/17 12:15 Cholesterol 207 mg/dL (<200) H 07/18/17 12:15 LDL Cholesterol Direct 127 mg/dL (75-193) 07/18/17 12:15 HDL Cholesterol 61 mg/dL (23-92) 07/18/17 12:15 TSH 2.79 uIU/ml (0.34-5.60) 07/18/17 12:15 Salicylates < 25.0 mg/L (30.0-100.0) L 07/18/17 12:15 Acetaminophen < 10.0 ug/mL (10.0-30.0) L 07/18/17 12:15 Ethyl Alcohol < 10 mg/dL (0-10) 07/18/17 12:15 RPR NONREACTIVE (NONREACTIVE) 07/18/17 12:15 - Physical Exam Vitals and I&O: Vital Signs Temp 97.9 F 07/30/17 20:18 Pulse 95 07/30/17 20:18 Resp 20 07/30/17 20:18 BP 120/80 07/30/17 20:18 Pulse Ox 97 07/30/17 20:18 Intake & Output 07/30/17 07/30/17 07/31/17 06:59 18:59 06:59 Intake Total 240 900 240 Balance 240 900 240 Intake: Oral 240 900 240 Other: # Voids 2 3 1 # Bowel Movements 1 0 Active Medications: Current Medications Acetaminophen (Tylenol) 650 mg PO Q4HR PRN PRN Reason: Mild Pain / Temp above 100 Stop: 09/16/17 15:39 Al Hydrox/Mg Hydrox/Simethicone (Maalox) 30 ml PO Q4HR PRN PRN Reason: GI DISTRESS Stop: 09/16/17 15:39 Chlorpromazine (Thorazine) 50 mg PO BID LEVY PRN Reason: Protocol Stop: 09/17/17 08:59 Last Admin: 07/30/17 16:23 Dose: 50 mg Clonazepam (Klonopin) 2 mg PO BID LEVY PRN Reason: Protocol Stop: 09/17/17 08:59 Last Admin: 07/30/17 16:21 Dose: 2 mg Docusate Sodium (Colace) 100 mg PO BID LEVY Stop: 09/17/17 08:59 Last Admin: 07/30/17 16:23 Dose: 100 mg Famotidine (Pepcid) 20 mg PO DAILY LEVY Stop: 09/17/17 08:59 Last Admin: 07/30/17 08:42 Dose: 20 mg Ferrous Sulfate (Iron) 325 mg PO DAILY LEVY Stop: 09/17/17 08:59 Last Admin: 07/30/17 08:42 Dose: 325 mg Haloperidol (Haldol) 10 mg PO BID LEVY PRN Reason: Protocol Stop: 09/17/17 08:59 Last Admin: 07/30/17 16:22 Dose: 10 mg Levothyroxine Sodium (Synthroid) 0.05 mg PO QDAC LEVY Stop: 09/17/17 07:29 Last Admin: 07/30/17 06:36 Dose: 0.05 mg Lorazepam (Ativan) 0.5 mg PO Q4HR PRN; Protocol PRN Reason: Anxiety Stop: 08/17/17 15:39 Last Admin: 07/30/17 08:42 Dose: 0.5 mg Magnesium Hydroxide (Milk Of Magnesia) 30 ml PO DAILY PRN PRN Reason: Constipation Stop: 09/16/17 19:35 Quetiapine Fumarate (Seroquel) 400 mg PO BID LEVY PRN Reason: Protocol Stop: 09/17/17 08:59 Last Admin: 07/30/17 16:22 Dose: 400 mg Valproate Sodium (Depakene) 500 mg PO BID LEVY PRN Reason: Protocol Stop: 09/17/17 10:59 Last Admin: 07/30/17 16:21 Dose: 500 mg Zolpidem Tartrate (Ambien) 5 mg PO HS PRN PRN Reason: Insomnia Stop: 09/16/17 15:39 Last Admin: 07/30/17 20:20 Dose: 5 mg General: demented HEENT: NC/AT, PERRLA, EOMI, anicteric sclerae, throat clear Neck: Supple, No JVD, No thyromegaly, +2 carotid pulse wo bruit, No LAD Lungs: CTAB Cardiovascular: Normal S1, Normal S2, without murmur Abdomen: non-tender, non-distended Extremities: rash Neurological: no change - Procedures Procedures: Procedures Procedure Code Date INDIVID PSYCHOTHERAP NEC 94.39 06/08/08 OTHER GROUP THERAPY 94.44 06/08/08 Internal Medicine Assmt/Plan - Assessment Assessment: 1.HYPOTHYROIDISM 2.DEMENTIA. - Plan Plan: CONTINUE ON CURRENT MEDICATION AND DIET. Nutritional Asmnt/Malnutr-PDOC - Dietary Evaluation Malnutrition Findings (Please click <Entered> for more info): Nutritional Asmnt/Malnutrition Start: 07/22/17 16: 21 Text: Status: Complete Freq: Document 07/22/17 16:21 TAYA (Rec: 07/22/17 16:35 TAYA [email or web address]) Nutritional Asmnt/Malnutrition Patient General Information Nutritional Screening Moderate Risk Diagnosis psychosis Pertinent Medical Hx/Surgical Hx hypothyroidism, chronic anemia , chronic constipation, dementia, psychosis Subjective Information Pt seen lying in bed at time of visit, confused. Pt reported good appetite, would like coffee with meal tray. Per EMR PO intake 1005. Current Diet Order/ Nutrition Support regular Pertinent Medications coalce, Iron, synthroid, seroquel Pertinent Labs 07/18 Na 133, glucose 128, A1c 6.8 Nutritional Hx/Data Height 1.6 m Height (Calculated Centimeters) 160.0 Current Weight (lbs) 93.894 kg Weight (Calculated Kilograms) 93.9 Weight (Calculated Grams) 72807.6 [place] Body Weight 115 Body Mass Index (BMI) 36.6 Weight Status Obese GI Symptoms GI Symptoms None Last BM 07/22 Difficult in: None Skin Integrity/Comment: blackened to left dorsal medical foot Current %PO Good (75-100%) Estimated Nutritional Goals BEE in Kcals: Using Current wt Calories/Kcals/Kg 25-30 Kcals Calculated 8065-1636 Protein: Using Current wt Protein g/k Protein Calculated 63 Fluid: ml 1575-1890ml (1ml/kcal) Nutritional Problem No current Nutrition Prob Problem N/A Malnutrition Alert Protein-Calorie Malnutrition N/A Is there a minimum of two criteria No selected? Query Text:Check all the applicable criteria. A minimum of two criteria are recommended for diagnosis of either severe or non-severe malnutrition. Intervention/Recommendation Comments 1. Continue with current diet as ordered. 2. Monitor PO intake, wt, labs and skin integrity 3. F/U as low risk in 7 days, 07/29 Expected Outcomes/Goals Expected Outcomes/Goals 1. PO intake to meet at least 75% of nutritional needs. 2. Wt stability, skin to remain intact, labs to approach WNL.
--- NOTE | 2017-07-31 03:21 | Progress Notes ---
DATE: 07/30/2017 Case discussed with staff of the patient, reviewed records. Sincere Sanchez said they are not going to take her again because apparently the [facility] is involved and apparently they went to that facility, decided to take off all medications. She became very agitated. She is very hard to redirect. She gets very aggressive, loud, and combative. Continues to be unable to take care of herself or make safe plan for self-care. She is unpredictable and impulsive. In general, she is calmer when compared to how she was when she first came here, so the staff is working on placement with the [facility] because as misplaced the best people to make decisions for her, they seem to be involved in her treatment and they make sure about what she can take and not take. So, it is hard to take care of her in any other facility. We will continue to work with the patient in group therapy, milieu therapy, and adjust the medications as needed. JOB# [id number]
[2017-07-31] MEDS: Levothyroxine 0.05 Mg Tab PO SCH (06:33)
[2017-07-31] MEDS: Ferrous Sulfate 325 MG TAB PO SCH (08:18)
[2017-07-31] MEDS: Multivitamin w/ Minerals Tab PO SCH (08:19)
--- NOTE | 2017-07-31 13:31 | Internal Medicine Prog Note ---
Internal Medicine Subjective - Subjective Service Date: 07/31/17 Patient seen and examined:: with staff (SHE STILL CONFUSED AND AGITATED) Patient is:: verbal, in wheelchair, confused Per staff patient has:: no adverse event (SHE HAS REDNESS OF LEFT SHOLDER SKIN) Internal Medicine Objective - Results Result Diagrams: 07/18/17 12:15 07/18/17 12:15 Recent Labs: Laboratory Last Values WBC 7.4 Th/cmm (4.8-10.8) 07/18/17 12:15 RBC 4.12 Mil/cmm (3.80-5.10) 07/18/17 12:15 Hgb 11.5 gm/dL (12-16) L 07/18/17 12:15 Hct 34.7 % (41.0-60) L 07/18/17 12:15 MCV 84.3 fl (81-100) 07/18/17 12:15 MCH 28.0 pg (27.0-31.0) 07/18/17 12:15 MCHC Differential 33.2 pg (28.0-36.0) 07/18/17 12:15 RDW 15.9 % (11.5-20.0) 07/18/17 12:15 Plt Count 186 Th/cmm (150-400) 07/18/17 12:15 MPV 8.4 fl 07/18/17 12:15 Neutrophils % 61.1 % (40.0-80.0) 07/18/17 12:15 Lymphocytes % 23.7 % (20.0-50.0) 07/18/17 12:15 Monocytes % 13.2 % (2.0-10.0) H 07/18/17 12:15 Eosinophils % 1.3 % (0.0-5.0) 07/18/17 12:15 Basophils % 0.7 % (0.0-2.0) 07/18/17 12:15 Sodium 133 mEq/L (136-145) L 07/18/17 12:15 Potassium 4.0 mEq/L (3.5-5.1) 07/18/17 12:15 Chloride 98 mEq/L (98-107) 07/18/17 12:15 Carbon Dioxide 27.8 mEq/L (21.0-31.0) 07/18/17 12:15 Anion Gap 11.2 (7.0-16.0) 07/18/17 12:15 BUN 10 mg/dL (7-25) 07/18/17 12:15 Creatinine 0.6 mg/dL (0.6-1.2) 07/18/17 12:15 Est GFR ( Amer) > 60.0 ml/min (>90) 07/18/17 12:15 Est GFR (Non-Af Amer) > 60.0 ml/min 07/18/17 12:15 BUN/Creatinine Ratio 16.7 07/18/17 12:15 Glucose 128 mg/dL (70-105) H 07/18/17 12:15 POC Glucose 116 MG/DL (70 - 105) H 07/30/17 16:06 Hemoglobin A1c % 6.8 % (4.0-6.0) H 07/18/17 12:15 Calcium 9.2 mg/dL (8.6-10.3) 07/18/17 12:15 Total Bilirubin 0.2 mg/dL (0.3-1.0) L 07/18/17 12:15 AST 12 U/L (13-39) L 07/18/17 12:15 ALT 8 U/L (7-52) 07/18/17 12:15 Alkaline Phosphatase 153 U/L (34-104) H 07/18/17 12:15 Total Protein 6.7 gm/dL (6.0-8.3) 07/18/17 12:15 Albumin 3.7 gm/dL (3.7-5.3) 07/18/17 12:15 Globulin 3.0 gm/dL 07/18/17 12:15 Albumin/Globulin Ratio 1.2 (1.0-1.8) 07/18/17 12:15 Triglycerides 61 mg/dL (<150) 07/18/17 12:15 Cholesterol 207 mg/dL (<200) H 07/18/17 12:15 LDL Cholesterol Direct 127 mg/dL (75-193) 07/18/17 12:15 HDL Cholesterol 61 mg/dL (23-92) 07/18/17 12:15 TSH 2.79 uIU/ml (0.34-5.60) 07/18/17 12:15 Salicylates < 25.0 mg/L (30.0-100.0) L 07/18/17 12:15 Acetaminophen < 10.0 ug/mL (10.0-30.0) L 07/18/17 12:15 Ethyl Alcohol < 10 mg/dL (0-10) 07/18/17 12:15 RPR NONREACTIVE (NONREACTIVE) 07/18/17 12:15 - Physical Exam Vitals and I&O: Vital Signs Temp 97.6 F 07/31/17 06:51 Pulse 101 07/31/17 08:00 Resp 20 07/31/17 06:51 BP 111/69 07/31/17 06:51 Pulse Ox 95 07/31/17 06:51 Intake & Output 07/30/17 07/31/17 07/31/17 18:59 06:59 18:59 Intake Total 900 240 Balance 900 240 Intake: Oral 900 240 Other: # Voids 3 1 # Bowel Movements 0 Active Medications: Current Medications Acetaminophen (Tylenol) 650 mg PO Q4HR PRN PRN Reason: Mild Pain / Temp above 100 Stop: 09/16/17 15:39 Al Hydrox/Mg Hydrox/Simethicone (Maalox) 30 ml PO Q4HR PRN PRN Reason: GI DISTRESS Stop: 09/16/17 15:39 Chlorpromazine (Thorazine) 50 mg PO BID [facility] PRN Reason: Protocol Stop: 09/17/17 08:59 Last Admin: 07/31/17 08:19 Dose: 50 mg Clonazepam (Klonopin) 2 mg PO BID [facility] PRN Reason: Protocol Stop: 09/17/17 08:59 Last Admin: 07/31/17 08:19 Dose: 2 mg Docusate Sodium (Colace) 100 mg PO BID [facility] Stop: 09/17/17 08:59 Last Admin: 07/31/17 08:18 Dose: 100 mg Famotidine (Pepcid) 20 mg PO DAILY [facility] Stop: 09/17/17 08:59 Last Admin: 07/31/17 08:18 Dose: 20 mg Ferrous Sulfate (Iron) 325 mg PO DAILY [facility] Stop: 09/17/17 08:59 Last Admin: 07/31/17 08:18 Dose: 325 mg Haloperidol (Haldol) 10 mg PO BID [facility] PRN Reason: Protocol Stop: 06/12/18 08:59 Last Admin: 07/31/17 08:18 Dose: 10 mg Levothyroxine Sodium (Synthroid) 0.05 mg PO QDAC [facility] Stop: 09/17/17 07:29 Last Admin: 07/31/17 06:33 Dose: 0.05 mg Lorazepam (Ativan) 0.5 mg PO Q4HR PRN; Protocol PRN Reason: Anxiety Stop: 08/17/17 15:39 Last Admin: 07/30/17 08:42 Dose: 0.5 mg Magnesium Hydroxide (Milk Of Magnesia) 30 ml PO DAILY PRN PRN Reason: Constipation Stop: 09/16/17 19:35 Quetiapine Fumarate (Seroquel) 400 mg PO BID [facility] PRN Reason: Protocol Stop: 09/17/17 08:59 Last Admin: 07/31/17 08:18 Dose: 400 mg Valproate Sodium (Depakene) 500 mg PO BID [facility] PRN Reason: Protocol Stop: 09/17/17 10:59 Last Admin: 07/31/17 08:18 Dose: 500 mg Zolpidem Tartrate (Ambien) 5 mg PO HS PRN PRN Reason: Insomnia Stop: 09/16/17 15:39 Last Admin: 07/30/17 20:20 Dose: 5 mg General: demented HEENT: NC/AT, PERRLA, EOMI, anicteric sclerae, throat clear Neck: Supple, No JVD, No thyromegaly, +2 carotid pulse wo bruit, No LAD Lungs: CTAB Cardiovascular: Normal S1, Normal S2, without murmur Abdomen: non-tender, non-distended Extremities: rash Neurological: no change - Procedures Procedures: Procedures Procedure Code Date INDIVID PSYCHOTHERAP NEC 94.39 06/08/08 OTHER GROUP THERAPY 94.44 06/08/08 Internal Medicine Assmt/Plan - Assessment Assessment: 1.HYPOTHYROIDISM 2.DEMENTIA. - Plan Plan: CONTINUE ON CURRENT MEDICATION AND DIET. Nutritional Asmnt/Malnutr-PDOC - Dietary Evaluation Malnutrition Findings (Please click <Entered> for more info): Nutritional Asmnt/Malnutrition Start: 07/22/17 16: 21 Text: Status: Complete Freq: Document 07/22/17 16:21 TAYA (Rec: 07/22/17 16:35 TAYA [id number]) Nutritional Asmnt/Malnutrition Patient General Information Nutritional Screening Moderate Risk Diagnosis psychosis Pertinent Medical Hx/Surgical Hx hypothyroidism, chronic anemia , chronic constipation, dementia, psychosis Subjective Information Pt seen lying in bed at time of visit, confused. Pt reported good appetite, would like coffee with meal tray. Per EMR PO intake 1005. Current Diet Order/ Nutrition Support regular Pertinent Medications coalce, Iron, synthroid, seroquel Pertinent Labs 07/18 Na 133, glucose 128, A1c 6.8 Nutritional Hx/Data Height 1.6 m Height (Calculated Centimeters) 160.0 Current Weight (lbs) 93.894 kg Weight (Calculated Kilograms) 93.9 Weight (Calculated Grams) 56644.6 [place] Body Weight 115 Body Mass Index (BMI) 36.6 Weight Status Obese GI Symptoms GI Symptoms None Last BM 07/22 Difficult in: None Skin Integrity/Comment: blackened to left dorsal medical foot Current %PO Good (75-100%) Estimated Nutritional Goals BEE in Kcals: Using Current wt Calories/Kcals/Kg 25-30 Kcals Calculated 9252-9032 Protein: Using Current wt Protein g/k Protein Calculated 63 Fluid: ml 1575-1890ml (1ml/kcal) Nutritional Problem No current Nutrition Prob Problem N/A Malnutrition Alert Protein-Calorie Malnutrition N/A Is there a minimum of two criteria No selected? Query Text:Check all the applicable criteria. A minimum of two criteria are recommended for diagnosis of either severe or non-severe malnutrition. Intervention/Recommendation Comments 1. Continue with current diet as ordered. 2. Monitor PO intake, wt, labs and skin integrity 3. F/U as low risk in 7 days, 07/29 Expected Outcomes/Goals Expected Outcomes/Goals 1. PO intake to meet at least 75% of nutritional needs. 2. Wt stability, skin to remain intact, labs to approach WNL.
--- NOTE | 2017-07-31 22:29 | Progress Notes ---
DATE: 07/31/2017 SUBJECTIVE: Case discussed with staff of the patient. The patient was currently on the observation room. She tend to act out. She is impulsive, unpredictable, needing redirection. Continues to have poor insight, easily agitated. [facility] does not want to take her back and she will be going to a different facility advised and probably the [facility] to be involved because they have their own places that could deal with people like her who are very aggressive and have developmental disability. No side effects with the medication, no sedation, no nausea and no extrapyramidal symptoms. LABORATORY DATA: Lab work showed hemoglobin is low at 11.5, low hematocrit 34.7, high monocytes 13.2. The rest within normal range. Chemistry panel with low sodium of 133 and blood sugar is high 128 and hemoglobin A1c is high at 6.8 and the rest within normal range. Serum cholesterol is high at 207. TSH within normal range. PLAN: I will continue the patient in group therapy, milieu therapy, adjust the medication as needed. RPR nonreactive. JOB# [id number]
[2017-08-01] MEDS: Levothyroxine 0.05 Mg Tab PO SCH (06:40)
[2017-08-01] MEDS: Multivitamin w/ Minerals Tab PO SCH (08:29)
[2017-08-01] MEDS ORDERED: chlorproMAZINE 25 mg/mL 2mL Amp ONE (09:49)
[2017-08-01] MEDS ORDERED: chlorproMAZINE 25 mg/mL 2mL Amp IM STA (09:53)
[2017-08-01] MEDS: Ferrous Sulfate 325 MG TAB PO SCH (09:56)
--- NOTE | 2017-08-01 19:24 | Internal Medicine Prog Note ---
Internal Medicine Subjective - Subjective Service Date: 08/01/17 Patient seen and examined:: with staff (SHE STILL CONFUSED BUT LESS AGITATED.) Patient is:: verbal, in wheelchair, confused Per staff patient has:: no adverse event (SHE HAS REDNESS OF LEFT SHOLDER SKIN) Internal Medicine Objective - Results Result Diagrams: 07/18/17 12:15 07/18/17 12:15 Recent Labs: Laboratory Last Values WBC 7.4 Th/cmm (4.8-10.8) 07/18/17 12:15 RBC 4.12 Mil/cmm (3.80-5.10) 07/18/17 12:15 Hgb 11.5 gm/dL (12-16) L 07/18/17 12:15 Hct 34.7 % (41.0-60) L 07/18/17 12:15 MCV 84.3 fl (81-100) 07/18/17 12:15 MCH 28.0 pg (27.0-31.0) 07/18/17 12:15 MCHC Differential 33.2 pg (28.0-36.0) 07/18/17 12:15 RDW 15.9 % (11.5-20.0) 07/18/17 12:15 Plt Count 186 Th/cmm (150-400) 07/18/17 12:15 MPV 8.4 fl 07/18/17 12:15 Neutrophils % 61.1 % (40.0-80.0) 07/18/17 12:15 Lymphocytes % 23.7 % (20.0-50.0) 07/18/17 12:15 Monocytes % 13.2 % (2.0-10.0) H 07/18/17 12:15 Eosinophils % 1.3 % (0.0-5.0) 07/18/17 12:15 Basophils % 0.7 % (0.0-2.0) 07/18/17 12:15 Sodium 133 mEq/L (136-145) L 07/18/17 12:15 Potassium 4.0 mEq/L (3.5-5.1) 07/18/17 12:15 Chloride 98 mEq/L (98-107) 07/18/17 12:15 Carbon Dioxide 27.8 mEq/L (21.0-31.0) 07/18/17 12:15 Anion Gap 11.2 (7.0-16.0) 07/18/17 12:15 BUN 10 mg/dL (7-25) 07/18/17 12:15 Creatinine 0.6 mg/dL (0.6-1.2) 07/18/17 12:15 Est GFR ( Amer) > 60.0 ml/min (>90) 07/18/17 12:15 Est GFR (Non-Af Amer) > 60.0 ml/min 07/18/17 12:15 BUN/Creatinine Ratio 16.7 07/18/17 12:15 Glucose 128 mg/dL (70-105) H 07/18/17 12:15 POC Glucose 116 MG/DL (70 - 105) H 07/30/17 16:06 Hemoglobin A1c % 6.8 % (4.0-6.0) H 07/18/17 12:15 Calcium 9.2 mg/dL (8.6-10.3) 07/18/17 12:15 Total Bilirubin 0.2 mg/dL (0.3-1.0) L 07/18/17 12:15 AST 12 U/L (13-39) L 07/18/17 12:15 ALT 8 U/L (7-52) 07/18/17 12:15 Alkaline Phosphatase 153 U/L (34-104) H 07/18/17 12:15 Total Protein 6.7 gm/dL (6.0-8.3) 07/18/17 12:15 Albumin 3.7 gm/dL (3.7-5.3) 07/18/17 12:15 Globulin 3.0 gm/dL 07/18/17 12:15 Albumin/Globulin Ratio 1.2 (1.0-1.8) 07/18/17 12:15 Triglycerides 61 mg/dL (<150) 07/18/17 12:15 Cholesterol 207 mg/dL (<200) H 07/18/17 12:15 LDL Cholesterol Direct 127 mg/dL (75-193) 07/18/17 12:15 HDL Cholesterol 61 mg/dL (23-92) 07/18/17 12:15 TSH 2.79 uIU/ml (0.34-5.60) 07/18/17 12:15 Salicylates < 25.0 mg/L (30.0-100.0) L 07/18/17 12:15 Acetaminophen < 10.0 ug/mL (10.0-30.0) L 07/18/17 12:15 Valproic Acid 57.0 ug/mL (50.0-100.0) 08/01/17 12:45 Ethyl Alcohol < 10 mg/dL (0-10) 07/18/17 12:15 RPR NONREACTIVE (NONREACTIVE) 07/18/17 12:15 - Physical Exam Vitals and I&O: Vital Signs Temp 97.6 F 08/01/17 15:53 Pulse 94 08/01/17 15:53 Resp 20 08/01/17 15:53 BP 113/70 08/01/17 15:53 Pulse Ox 96 08/01/17 15:53 Intake & Output 08/01/17 08/01/17 08/02/17 06:59 18:59 06:59 Intake Total 120 1500 Balance 120 1500 Intake: Oral 120 1500 Other: # Voids 3 4 Active Medications: Current Medications Acetaminophen (Tylenol) 650 mg PO Q4HR PRN PRN Reason: Mild Pain / Temp above 100 Stop: 09/16/17 15:39 Al Hydrox/Mg Hydrox/Simethicone (Maalox) 30 ml PO Q4HR PRN PRN Reason: GI DISTRESS Stop: 09/16/17 15:39 Chlorpromazine (Thorazine) 50 mg PO BID [facility] PRN Reason: Protocol Stop: 09/17/17 08:59 Last Admin: 08/01/17 17:07 Dose: 50 mg Clonazepam (Klonopin) 2 mg PO BID [facility] PRN Reason: Protocol Stop: 09/17/17 08:59 Last Admin: 08/01/17 17:07 Dose: 2 mg Docusate Sodium (Colace) 100 mg PO BID [facility] Stop: 09/17/17 08:59 Last Admin: 08/01/17 17:07 Dose: 100 mg Famotidine (Pepcid) 20 mg PO DAILY [facility] Stop: 09/17/17 08:59 Last Admin: 08/01/17 08:30 Dose: 20 mg Ferrous Sulfate (Iron) 325 mg PO DAILY [facility] Stop: 09/17/17 08:59 Last Admin: 08/01/17 09:56 Dose: 325 mg Haloperidol (Haldol) 10 mg PO BID [facility] PRN Reason: Protocol Stop: 09/17/17 08:59 Last Admin: 08/01/17 17:07 Dose: 10 mg Levothyroxine Sodium (Synthroid) 0.05 mg PO QDAC [facility] Stop: 09/17/17 07:29 Last Admin: 08/01/17 06:40 Dose: 0.05 mg Lorazepam (Ativan) 0.5 mg PO Q4HR PRN; Protocol PRN Reason: Anxiety Stop: 08/17/17 15:39 Last Admin: 08/01/17 13:32 Dose: 0.5 mg Magnesium Hydroxide (Milk Of Magnesia) 30 ml PO DAILY PRN PRN Reason: Constipation Stop: 09/16/17 19:35 Quetiapine Fumarate (Seroquel) 400 mg PO BID [facility] PRN Reason: Protocol Stop: 09/17/17 08:59 Last Admin: 08/01/17 17:07 Dose: 400 mg Valproate Sodium (Depakene) 500 mg PO BID [facility] PRN Reason: Protocol Stop: 09/17/17 10:59 Last Admin: 08/01/17 17:06 Dose: 500 mg Zolpidem Tartrate (Ambien) 5 mg PO HS PRN PRN Reason: Insomnia Stop: 09/16/17 15:39 Last Admin: 07/30/17 20:20 Dose: 5 mg General: demented HEENT: NC/AT, PERRLA, EOMI, anicteric sclerae, throat clear Neck: Supple, No JVD, No thyromegaly, +2 carotid pulse wo bruit, No LAD Lungs: CTAB Cardiovascular: Normal S1, Normal S2, without murmur Abdomen: non-tender, non-distended Extremities: rash Neurological: no change - Procedures Procedures: Procedures Procedure Code Date INDIVID PSYCHOTHERAP NEC 94.39 06/08/08 OTHER GROUP THERAPY 94.44 06/08/08 Internal Medicine Assmt/Plan - Assessment Assessment: 1.HYPOTHYROIDISM 2.DEMENTIA. - Plan Plan: CONTINUE ON CURRENT MEDICATION AND DIET. Nutritional Asmnt/Malnutr-PDOC - Dietary Evaluation Malnutrition Findings (Please click <Entered> for more info): Nutritional Asmnt/Malnutrition Start: 07/22/17 16: 21 Text: Status: Complete Freq: Document 07/22/17 16:21 TAYA (Rec: 07/22/17 16:35 [facility] [email or web address]) Nutritional Asmnt/Malnutrition Patient General Information Nutritional Screening Moderate Risk Diagnosis psychosis Pertinent Medical Hx/Surgical Hx hypothyroidism, chronic anemia , chronic constipation, dementia, psychosis Subjective Information Pt seen lying in bed at time of visit, confused. Pt reported good appetite, would like coffee with meal tray. Per EMR PO intake 1005. Current Diet Order/ Nutrition Support regular Pertinent Medications coalce, Iron, synthroid, seroquel Pertinent Labs 07/18 Na 133, glucose 128, A1c 6.8 Nutritional Hx/Data Height 1.6 m Height (Calculated Centimeters) 160.0 Current Weight (lbs) 93.894 kg Weight (Calculated Kilograms) 93.9 Weight (Calculated Grams) 69595.6 [place] Body Weight 115 Body Mass Index (BMI) 36.6 Weight Status Obese GI Symptoms GI Symptoms None Last BM 07/22 Difficult in: None Skin Integrity/Comment: blackened to left dorsal medical foot Current %PO Good (75-100%) Estimated Nutritional Goals BEE in Kcals: Using Current wt Calories/Kcals/Kg 25-30 Kcals Calculated 3191-6032 Protein: Using Current wt Protein g/k Protein Calculated 63 Fluid: ml 1575-1890ml (1ml/kcal) Nutritional Problem No current Nutrition Prob Problem N/A Malnutrition Alert Protein-Calorie Malnutrition N/A Is there a minimum of two criteria No selected? Query Text:Check all the applicable criteria. A minimum of two criteria are recommended for diagnosis of either severe or non-severe malnutrition. Intervention/Recommendation Comments 1. Continue with current diet as ordered. 2. Monitor PO intake, wt, labs and skin integrity 3. F/U as low risk in 7 days, 07/29 Expected Outcomes/Goals Expected Outcomes/Goals 1. PO intake to meet at least 75% of nutritional needs. 2. Wt stability, skin to remain intact, labs to approach WNL.
--- NOTE | 2017-08-02 01:09 | Progress Notes ---
DATE: 08/01/2017 Case was discussed with staff of the patient. The patient was yelling and screaming today. She was out of control, very loud, threatening, aggressive, combative hard to redirect. She has to be medicated with Thorazine 50 mg intramuscular. She is still loud after she got that. She is still hard to redirect. She is still unpredictable, impulsive, unable to explain herself very well, and she is mentally disabled. So far, no side effects to the medication, no sedation or nausea, no extrapyramidal symptoms. I will be ordering a Depakote level on her to see if it needs adjustments. Her medications are reviewed on the chart. I will continue the patient in group therapy, milieu therapy, and adjust medications as needed. JOB# [id number]
[2017-08-02] MEDS: Levothyroxine 0.05 Mg Tab PO SCH (06:37)
[2017-08-02] MEDS: Multivitamin w/ Minerals Tab PO SCH (08:19)
[2017-08-02] MEDS: Ferrous Sulfate 325 MG TAB PO SCH (08:19)
[2017-08-02] MEDS ORDERED: chlorproMAZINE 25 mg/mL 2mL Amp ONE (09:25)
[2017-08-02] MEDS ORDERED: chlorproMAZINE 25 mg/mL 2mL Amp IM STA (10:25)
--- NOTE | 2017-08-02 14:50 | Internal Medicine Prog Note ---
Internal Medicine Subjective - Subjective Service Date: 08/02/17 Patient is:: verbal, in wheelchair, confused Per staff patient has:: no adverse event (SHE HAS REDNESS OF LEFT SHOLDER SKIN) Internal Medicine Objective - Results Result Diagrams: 07/18/17 12:15 07/18/17 12:15 Recent Labs: Laboratory Last Values WBC 7.4 Th/cmm (4.8-10.8) 07/18/17 12:15 RBC 4.12 Mil/cmm (3.80-5.10) 07/18/17 12:15 Hgb 11.5 gm/dL (12-16) L 07/18/17 12:15 Hct 34.7 % (41.0-60) L 07/18/17 12:15 MCV 84.3 fl (81-100) 07/18/17 12:15 MCH 28.0 pg (27.0-31.0) 07/18/17 12:15 MCHC Differential 33.2 pg (28.0-36.0) 07/18/17 12:15 RDW 15.9 % (11.5-20.0) 07/18/17 12:15 Plt Count 186 Th/cmm (150-400) 07/18/17 12:15 MPV 8.4 fl 07/18/17 12:15 Neutrophils % 61.1 % (40.0-80.0) 07/18/17 12:15 Lymphocytes % 23.7 % (20.0-50.0) 07/18/17 12:15 Monocytes % 13.2 % (2.0-10.0) H 07/18/17 12:15 Eosinophils % 1.3 % (0.0-5.0) 07/18/17 12:15 Basophils % 0.7 % (0.0-2.0) 07/18/17 12:15 Sodium 133 mEq/L (136-145) L 07/18/17 12:15 Potassium 4.0 mEq/L (3.5-5.1) 07/18/17 12:15 Chloride 98 mEq/L (98-107) 07/18/17 12:15 Carbon Dioxide 27.8 mEq/L (21.0-31.0) 07/18/17 12:15 Anion Gap 11.2 (7.0-16.0) 07/18/17 12:15 BUN 10 mg/dL (7-25) 07/18/17 12:15 Creatinine 0.6 mg/dL (0.6-1.2) 07/18/17 12:15 Est GFR ( Amer) > 60.0 ml/min (>90) 07/18/17 12:15 Est GFR (Non-Af Amer) > 60.0 ml/min 07/18/17 12:15 BUN/Creatinine Ratio 16.7 07/18/17 12:15 Glucose 128 mg/dL (70-105) H 07/18/17 12:15 POC Glucose 116 MG/DL (70 - 105) H 07/30/17 16:06 Hemoglobin A1c % 6.8 % (4.0-6.0) H 07/18/17 12:15 Calcium 9.2 mg/dL (8.6-10.3) 07/18/17 12:15 Total Bilirubin 0.2 mg/dL (0.3-1.0) L 07/18/17 12:15 AST 12 U/L (13-39) L 07/18/17 12:15 ALT 8 U/L (7-52) 07/18/17 12:15 Alkaline Phosphatase 153 U/L (34-104) H 07/18/17 12:15 Total Protein 6.7 gm/dL (6.0-8.3) 07/18/17 12:15 Albumin 3.7 gm/dL (3.7-5.3) 07/18/17 12:15 Globulin 3.0 gm/dL 07/18/17 12:15 Albumin/Globulin Ratio 1.2 (1.0-1.8) 07/18/17 12:15 Triglycerides 61 mg/dL (<150) 07/18/17 12:15 Cholesterol 207 mg/dL (<200) H 07/18/17 12:15 LDL Cholesterol Direct 127 mg/dL (75-193) 07/18/17 12:15 HDL Cholesterol 61 mg/dL (23-92) 07/18/17 12:15 TSH 2.79 uIU/ml (0.34-5.60) 07/18/17 12:15 Salicylates < 25.0 mg/L (30.0-100.0) L 07/18/17 12:15 Acetaminophen < 10.0 ug/mL (10.0-30.0) L 07/18/17 12:15 Valproic Acid 57.0 ug/mL (50.0-100.0) 08/01/17 12:45 Ethyl Alcohol < 10 mg/dL (0-10) 07/18/17 12:15 RPR NONREACTIVE (NONREACTIVE) 07/18/17 12:15 - Physical Exam Vitals and I&O: Vital Signs Temp 97.2 F 08/02/17 05:57 Pulse 91 08/02/17 05:57 Resp 20 08/02/17 05:57 BP 107/69 08/02/17 05:57 Pulse Ox 98 08/02/17 05:57 Intake & Output 08/01/17 08/02/17 08/02/17 18:59 06:59 18:59 Intake Total 1500 120 Balance 1500 120 Intake: Oral 1500 120 Other: # Voids 4 3 Active Medications: Current Medications Acetaminophen (Tylenol) 650 mg PO Q4HR PRN PRN Reason: Mild Pain / Temp above 100 Stop: 09/16/17 15:39 Al Hydrox/Mg Hydrox/Simethicone (Maalox) 30 ml PO Q4HR PRN PRN Reason: GI DISTRESS Stop: 09/16/17 15:39 Chlorpromazine (Thorazine) 50 mg PO BID [facility] Stop: 10/01/17 16:59 Clonazepam (Klonopin) 2 mg PO BID [facility] PRN Reason: Protocol Stop: 09/17/17 08:59 Last Admin: 08/02/17 08:18 Dose: 2 mg Docusate Sodium (Colace) 100 mg PO BID [facility] Stop: 09/17/17 08:59 Last Admin: 08/02/17 08:19 Dose: 100 mg Famotidine (Pepcid) 20 mg PO DAILY [facility] Stop: 09/17/17 08:59 Last Admin: 08/02/17 08:18 Dose: 20 mg Ferrous Sulfate (Iron) 325 mg PO DAILY [facility] Stop: 09/17/17 08:59 Last Admin: 08/02/17 08:19 Dose: 325 mg Haloperidol (Haldol) 10 mg PO BID [facility] PRN Reason: Protocol Stop: 09/17/17 08:59 Last Admin: 08/02/17 08:18 Dose: 10 mg Levothyroxine Sodium (Synthroid) 0.05 mg PO QDAC [facility] Stop: 09/17/17 07:29 Last Admin: 08/02/17 06:37 Dose: 0.05 mg Lorazepam (Ativan) 0.5 mg PO Q4HR PRN; Protocol PRN Reason: Anxiety Stop: 08/17/17 15:39 Last Admin: 08/01/17 13:32 Dose: 0.5 mg Magnesium Hydroxide (Milk Of Magnesia) 30 ml PO DAILY PRN PRN Reason: Constipation Stop: 09/16/17 19:35 Quetiapine Fumarate (Seroquel) 200 mg PO BID [facility] PRN Reason: Protocol Stop: 10/01/17 16:59 Valproate Sodium (Depakene) 500 mg PO BID [facility] PRN Reason: Protocol Stop: 09/17/17 10:59 Last Admin: 08/02/17 08:18 Dose: 500 mg Zolpidem Tartrate (Ambien) 5 mg PO HS PRN PRN Reason: Insomnia Stop: 09/16/17 15:39 Last Admin: 07/30/17 20:20 Dose: 5 mg General: demented HEENT: NC/AT, PERRLA, EOMI, anicteric sclerae, throat clear Neck: Supple, No JVD, No thyromegaly, +2 carotid pulse wo bruit, No LAD Lungs: CTAB Cardiovascular: Normal S1, Normal S2, without murmur Abdomen: non-tender, non-distended Extremities: rash Neurological: no change - Procedures Procedures: Procedures Procedure Code Date INDIVID PSYCHOTHERAP NEC 94.39 06/08/08 OTHER GROUP THERAPY 94.44 06/08/08 Internal Medicine Assmt/Plan - Assessment Assessment: 1.HYPOTHYROIDISM 2.DEMENTIA. - Plan Plan: CONTINUE ON CURRENT MEDICATION AND DIET. Nutritional Asmnt/Malnutr-PDOC - Dietary Evaluation Malnutrition Findings (Please click <Entered> for more info): Nutritional Asmnt/Malnutrition Start: 07/22/17 16: 21 Text: Status: Complete Freq: Document 07/22/17 16:21 [email or web address] (Rec: 07/22/17 16:35 [email or web address] [id number]) Nutritional Asmnt/Malnutrition Patient General Information Nutritional Screening Moderate Risk Diagnosis psychosis Pertinent Medical Hx/Surgical Hx hypothyroidism, chronic anemia , chronic constipation, dementia, psychosis Subjective Information Pt seen lying in bed at time of visit, confused. Pt reported good appetite, would like coffee with meal tray. Per EMR PO intake 1005. Current Diet Order/ Nutrition Support regular Pertinent Medications coalce, Iron, synthroid, seroquel Pertinent Labs 07/18 Na 133, glucose 128, A1c 6.8 Nutritional Hx/Data Height 1.6 m Height (Calculated Centimeters) 160.0 Current Weight (lbs) 93.894 kg Weight (Calculated Kilograms) 93.9 Weight (Calculated Grams) 48236.6 [place] Body Weight 115 Body Mass Index (BMI) 36.6 Weight Status Obese GI Symptoms GI Symptoms None Last BM 07/22 Difficult in: None Skin Integrity/Comment: blackened to left dorsal medical foot Current %PO Good (75-100%) Estimated Nutritional Goals BEE in Kcals: Using Current wt Calories/Kcals/Kg 25-30 Kcals Calculated 6433-5284 Protein: Using Current wt Protein g/k Protein Calculated 63 Fluid: ml 1575-1890ml (1ml/kcal) Nutritional Problem No current Nutrition Prob Problem N/A Malnutrition Alert Protein-Calorie Malnutrition N/A Is there a minimum of two criteria No selected? Query Text:Check all the applicable criteria. A minimum of two criteria are recommended for diagnosis of either severe or non-severe malnutrition. Intervention/Recommendation Comments 1. Continue with current diet as ordered. 2. Monitor PO intake, wt, labs and skin integrity 3. F/U as low risk in 7 days, 07/29 Expected Outcomes/Goals Expected Outcomes/Goals 1. PO intake to meet at least 75% of nutritional needs. 2. Wt stability, skin to remain intact, labs to approach WNL.
--- NOTE | 2017-08-02 22:18 | Progress Notes ---
DATE: 08/02/2017 SUBJECTIVE: Case was discussed with the staff of the patient and reviewed records. The patient continues to act out, continues to be loud. She needed another injection of chlorpromazine today. She is still easily agitated, has very poor insight. She is developmentally disabled and does not seem to understand the process. She is sleeping well. She is eating well, compliant with the medication with no side effects, cannot tell if she is hallucinating or not as she is unable to express herself very well. However, ____ the only thing she has been responding to is chlorpromazine. I will try to taper off some of her medications as it happened last time that she was taken abruptly off her medication by the [facility] and that may have "precipitated her current admission", so we do like this to keep happening to her upon discharge. She is on Seroquel 400 mg twice a day. I will be decreasing the dose slowly so we can go from 400 to 200 mg twice a day. So far no side effects, no sedation, no nausea, no extrapyramidal symptoms. We will continue outpatient group therapy, milieu therapy, adjusting medication as needed. JOB# [id number]
[2017-08-03] MEDS: Levothyroxine 0.05 Mg Tab PO SCH (06:35)
[2017-08-03] MEDS ORDERED: chlorproMAZINE 25 mg/mL 2mL Amp IM STA (08:19)
[2017-08-03] MEDS ORDERED: chlorproMAZINE 25 mg/mL 2mL Amp ONE (08:22)
[2017-08-03] MEDS: Multivitamin w/ Minerals Tab PO SCH (08:29)
[2017-08-03] MEDS: Ferrous Sulfate 325 MG TAB PO SCH (08:30)
--- NOTE | 2017-08-03 17:30 | General Progress Note ---
Subjective - Review of Systems Service Date: 08/03/17 Subjective: resting comfortably no distress Objective - Results Result Diagrams: 07/18/17 12:15 07/18/17 12:15 Recent Labs: Laboratory Last Values WBC 7.4 Th/cmm (4.8-10.8) 07/18/17 12:15 RBC 4.12 Mil/cmm (3.80-5.10) 07/18/17 12:15 Hgb 11.5 gm/dL (12-16) L 07/18/17 12:15 Hct 34.7 % (41.0-60) L 07/18/17 12:15 MCV 84.3 fl (81-100) 07/18/17 12:15 MCH 28.0 pg (27.0-31.0) 07/18/17 12:15 MCHC Differential 33.2 pg (28.0-36.0) 07/18/17 12:15 RDW 15.9 % (11.5-20.0) 07/18/17 12:15 Plt Count 186 Th/cmm (150-400) 07/18/17 12:15 MPV 8.4 fl 07/18/17 12:15 Neutrophils % 61.1 % (40.0-80.0) 07/18/17 12:15 Lymphocytes % 23.7 % (20.0-50.0) 07/18/17 12:15 Monocytes % 13.2 % (2.0-10.0) H 07/18/17 12:15 Eosinophils % 1.3 % (0.0-5.0) 07/18/17 12:15 Basophils % 0.7 % (0.0-2.0) 07/18/17 12:15 Sodium 133 mEq/L (136-145) L 07/18/17 12:15 Potassium 4.0 mEq/L (3.5-5.1) 07/18/17 12:15 Chloride 98 mEq/L (98-107) 07/18/17 12:15 Carbon Dioxide 27.8 mEq/L (21.0-31.0) 07/18/17 12:15 Anion Gap 11.2 (7.0-16.0) 07/18/17 12:15 BUN 10 mg/dL (7-25) 07/18/17 12:15 Creatinine 0.6 mg/dL (0.6-1.2) 07/18/17 12:15 Est GFR ( Amer) > 60.0 ml/min (>90) 07/18/17 12:15 Est GFR (Non-Af Amer) > 60.0 ml/min 07/18/17 12:15 BUN/Creatinine Ratio 16.7 07/18/17 12:15 Glucose 128 mg/dL (70-105) H 07/18/17 12:15 POC Glucose 116 MG/DL (70 - 105) H 07/30/17 16:06 Hemoglobin A1c % 6.8 % (4.0-6.0) H 07/18/17 12:15 Calcium 9.2 mg/dL (8.6-10.3) 07/18/17 12:15 Total Bilirubin 0.2 mg/dL (0.3-1.0) L 07/18/17 12:15 AST 12 U/L (13-39) L 07/18/17 12:15 ALT 8 U/L (7-52) 07/18/17 12:15 Alkaline Phosphatase 153 U/L (34-104) H 07/18/17 12:15 Total Protein 6.7 gm/dL (6.0-8.3) 07/18/17 12:15 Albumin 3.7 gm/dL (3.7-5.3) 07/18/17 12:15 Globulin 3.0 gm/dL 07/18/17 12:15 Albumin/Globulin Ratio 1.2 (1.0-1.8) 07/18/17 12:15 Triglycerides 61 mg/dL (<150) 07/18/17 12:15 Cholesterol 207 mg/dL (<200) H 07/18/17 12:15 LDL Cholesterol Direct 127 mg/dL (75-193) 07/18/17 12:15 HDL Cholesterol 61 mg/dL (23-92) 07/18/17 12:15 TSH 2.79 uIU/ml (0.34-5.60) 07/18/17 12:15 Salicylates < 25.0 mg/L (30.0-100.0) L 07/18/17 12:15 Acetaminophen < 10.0 ug/mL (10.0-30.0) L 07/18/17 12:15 Valproic Acid 57.0 ug/mL (50.0-100.0) 08/01/17 12:45 Ethyl Alcohol < 10 mg/dL (0-10) 07/18/17 12:15 RPR NONREACTIVE (NONREACTIVE) 07/18/17 12:15 - Physical Exam Vitals and I&O: Vital Signs Temp 98.8 F 08/03/17 15:14 Pulse 96 08/03/17 15:14 Resp 20 08/03/17 15:14 BP 109/73 08/03/17 15:14 Pulse Ox 94 08/03/17 15:14 Intake & Output 08/02/17 08/03/17 08/03/17 18:59 06:59 18:59 Intake Total 1500 240 Balance 1500 240 Intake: Oral 1500 240 Other: # Voids 4 2 Active Medications: Current Medications Acetaminophen (Tylenol) 650 mg PO Q4HR PRN PRN Reason: Mild Pain / Temp above 100 Stop: 09/16/17 15:39 Al Hydrox/Mg Hydrox/Simethicone (Maalox) 30 ml PO Q4HR PRN PRN Reason: GI DISTRESS Stop: 09/16/17 15:39 Chlorpromazine (Thorazine) 50 mg PO BID [facility] Stop: 10/01/17 16:59 Last Admin: 08/03/17 16:30 Dose: 50 mg Clonazepam (Klonopin) 2 mg PO BID [facility] PRN Reason: Protocol Stop: 09/17/17 08:59 Last Admin: 08/03/17 16:29 Dose: 2 mg Docusate Sodium (Colace) 100 mg PO BID [facility] Stop: 09/17/17 08:59 Last Admin: 08/03/17 16:29 Dose: 100 mg Famotidine (Pepcid) 20 mg PO DAILY [facility] Stop: 09/17/17 08:59 Last Admin: 08/03/17 08:29 Dose: 20 mg Ferrous Sulfate (Iron) 325 mg PO DAILY [facility] Stop: 09/17/17 08:59 Last Admin: 08/03/17 08:30 Dose: 325 mg Haloperidol (Haldol) 10 mg PO BID [facility] PRN Reason: Protocol Stop: 09/17/17 08:59 Last Admin: 08/03/17 16:29 Dose: 10 mg Levothyroxine Sodium (Synthroid) 0.05 mg PO QDAC [facility] Stop: 09/17/17 07:29 Last Admin: 08/03/17 06:35 Dose: 0.05 mg Lorazepam (Ativan) 0.5 mg PO Q4HR PRN; Protocol PRN Reason: Anxiety Stop: 08/17/17 15:39 Last Admin: 08/01/17 13:32 Dose: 0.5 mg Magnesium Hydroxide (Milk Of Magnesia) 30 ml PO DAILY PRN PRN Reason: Constipation Stop: 09/16/17 19:35 Quetiapine Fumarate (Seroquel) 200 mg PO BID [facility] PRN Reason: Protocol Stop: 10/01/17 16:59 Last Admin: 08/03/17 16:29 Dose: 200 mg Valproate Sodium (Depakene) 500 mg PO BID [facility] PRN Reason: Protocol Stop: 09/17/17 10:59 Last Admin: 08/03/17 16:30 Dose: 500 mg Zolpidem Tartrate (Ambien) 5 mg PO HS PRN PRN Reason: Insomnia Stop: 09/16/17 15:39 Last Admin: 07/30/17 20:20 Dose: 5 mg General: Alert, Cooperative HEENT: Atraumatic, PERRLA Neck: Supple, JVD Cardiovascular: Regular rate, Normal S1, Normal S2 Lungs: Clear to auscultation Abdomen: Bowel sounds, Soft - Procedures Procedures: Procedures Procedure Code Date INDIVID PSYCHOTHERAP NEC 94.39 06/08/08 OTHER GROUP THERAPY 94.44 06/08/08 Assessment/Plan - Problem List Patient Problems: All Active Problems AGITATION AND STRIKING OUT, DISRUPTIVE (Acute) - Assessment Assessment: 1.CHRONIC ANEMIA 2.HYPOTHYROIDISM 3.DEMENTIA. - Plan Plan: CONT CURRENT TREATMENT Nutritional Asmnt/Malnutr-PDOC - Dietary Evaluation Malnutrition Findings (Please click <Entered> for more info): Nutritional Asmnt/Malnutrition Start: 07/22/17 16: 21 Text: Status: Complete Freq: Document 07/22/17 16:21 FLORY (Rec: 07/22/17 16:35 [email or web address]) Nutritional Asmnt/Malnutrition Patient General Information Nutritional Screening Moderate Risk Diagnosis psychosis Pertinent Medical Hx/Surgical Hx hypothyroidism, chronic anemia , chronic constipation, dementia, psychosis Subjective Information Pt seen lying in bed at time of visit, confused. Pt reported good appetite, would like coffee with meal tray. Per EMR PO intake 1005. Current Diet Order/ Nutrition Support regular Pertinent Medications coalce, Iron, synthroid, seroquel Pertinent Labs 07/18 Na 133, glucose 128, A1c 6.8 Nutritional Hx/Data Height 1.6 m Height (Calculated Centimeters) 160.0 Current Weight (lbs) 93.894 kg Weight (Calculated Kilograms) 93.9 Weight (Calculated Grams) 99343.6 [place] Body Weight 115 Body Mass Index (BMI) 36.6 Weight Status Obese GI Symptoms GI Symptoms None Last BM 07/22 Difficult in: None Skin Integrity/Comment: blackened to left dorsal medical foot Current %PO Good (75-100%) Estimated Nutritional Goals BEE in Kcals: Using Current wt Calories/Kcals/Kg 25-30 Kcals Calculated 5968-2630 Protein: Using Current wt Protein g/k Protein Calculated 63 Fluid: ml 1575-1890ml (1ml/kcal) Nutritional Problem No current Nutrition Prob Problem N/A Malnutrition Alert Protein-Calorie Malnutrition N/A Is there a minimum of two criteria No selected? Query Text:Check all the applicable criteria. A minimum of two criteria are recommended for diagnosis of either severe or non-severe malnutrition. Intervention/Recommendation Comments 1. Continue with current diet as ordered. 2. Monitor PO intake, wt, labs and skin integrity 3. F/U as low risk in 7 days, 07/29 Expected Outcomes/Goals Expected Outcomes/Goals 1. PO intake to meet at least 75% of nutritional needs. 2. Wt stability, skin to remain intact, labs to approach WNL.
--- NOTE | 2017-08-04 00:17 | Progress Notes ---
DATE: 08/03/2017 Case was discussed with staff of the patient, reviewed records. The patient continues to have episodes of yelling and screaming, had to be medicated again today. She is unpredictable and impulsive. She can control her behavior; however, I did decrease her Seroquel yesterday and I see no difference in her behavior. She has been yelling even when she was taking a higher dose of Seroquel. No side effects to the medication, no sedation, no nausea, and no extrapyramidal symptoms. We will continue to work with the patient in group therapy, milieu therapy, and adjust the medications as needed. JOB# [id number]
[2017-08-04] MEDS: Levothyroxine 0.05 Mg Tab PO SCH (06:38)
[2017-08-04] MEDS: Multivitamin w/ Minerals Tab PO SCH (09:06)
[2017-08-04] MEDS: Ferrous Sulfate 325 MG TAB PO SCH (09:08)
--- NOTE | 2017-08-04 18:54 | General Progress Note ---
Subjective - Review of Systems Service Date: 08/04/17 Subjective: resting comfortably no distress Objective - Results Result Diagrams: 07/18/17 12:15 07/18/17 12:15 Recent Labs: Laboratory Last Values WBC 7.4 Th/cmm (4.8-10.8) 07/18/17 12:15 RBC 4.12 Mil/cmm (3.80-5.10) 07/18/17 12:15 Hgb 11.5 gm/dL (12-16) L 07/18/17 12:15 Hct 34.7 % (41.0-60) L 07/18/17 12:15 MCV 84.3 fl (81-100) 07/18/17 12:15 MCH 28.0 pg (27.0-31.0) 07/18/17 12:15 MCHC Differential 33.2 pg (28.0-36.0) 07/18/17 12:15 RDW 15.9 % (11.5-20.0) 07/18/17 12:15 Plt Count 186 Th/cmm (150-400) 07/18/17 12:15 MPV 8.4 fl 07/18/17 12:15 Neutrophils % 61.1 % (40.0-80.0) 07/18/17 12:15 Lymphocytes % 23.7 % (20.0-50.0) 07/18/17 12:15 Monocytes % 13.2 % (2.0-10.0) H 07/18/17 12:15 Eosinophils % 1.3 % (0.0-5.0) 07/18/17 12:15 Basophils % 0.7 % (0.0-2.0) 07/18/17 12:15 Sodium 133 mEq/L (136-145) L 07/18/17 12:15 Potassium 4.0 mEq/L (3.5-5.1) 07/18/17 12:15 Chloride 98 mEq/L (98-107) 07/18/17 12:15 Carbon Dioxide 27.8 mEq/L (21.0-31.0) 07/18/17 12:15 Anion Gap 11.2 (7.0-16.0) 07/18/17 12:15 BUN 10 mg/dL (7-25) 07/18/17 12:15 Creatinine 0.6 mg/dL (0.6-1.2) 07/18/17 12:15 Est GFR ( Amer) > 60.0 ml/min (>90) 07/18/17 12:15 Est GFR (Non-Af Amer) > 60.0 ml/min 07/18/17 12:15 BUN/Creatinine Ratio 16.7 07/18/17 12:15 Glucose 128 mg/dL (70-105) H 07/18/17 12:15 POC Glucose 116 MG/DL (70 - 105) H 07/30/17 16:06 Hemoglobin A1c % 6.8 % (4.0-6.0) H 07/18/17 12:15 Calcium 9.2 mg/dL (8.6-10.3) 07/18/17 12:15 Total Bilirubin 0.2 mg/dL (0.3-1.0) L 07/18/17 12:15 AST 12 U/L (13-39) L 07/18/17 12:15 ALT 8 U/L (7-52) 07/18/17 12:15 Alkaline Phosphatase 153 U/L (34-104) H 07/18/17 12:15 Total Protein 6.7 gm/dL (6.0-8.3) 07/18/17 12:15 Albumin 3.7 gm/dL (3.7-5.3) 07/18/17 12:15 Globulin 3.0 gm/dL 07/18/17 12:15 Albumin/Globulin Ratio 1.2 (1.0-1.8) 07/18/17 12:15 Triglycerides 61 mg/dL (<150) 07/18/17 12:15 Cholesterol 207 mg/dL (<200) H 07/18/17 12:15 LDL Cholesterol Direct 127 mg/dL (75-193) 07/18/17 12:15 HDL Cholesterol 61 mg/dL (23-92) 07/18/17 12:15 TSH 2.79 uIU/ml (0.34-5.60) 07/18/17 12:15 Salicylates < 25.0 mg/L (30.0-100.0) L 07/18/17 12:15 Acetaminophen < 10.0 ug/mL (10.0-30.0) L 07/18/17 12:15 Valproic Acid 57.0 ug/mL (50.0-100.0) 08/01/17 12:45 Ethyl Alcohol < 10 mg/dL (0-10) 07/18/17 12:15 RPR NONREACTIVE (NONREACTIVE) 07/18/17 12:15 - Physical Exam Vitals and I&O: Vital Signs Temp 97.5 F 08/04/17 15:19 Pulse 97 08/04/17 15:19 Resp 20 08/04/17 15:19 BP 137/79 08/04/17 15:19 Pulse Ox 97 08/04/17 15:19 Intake & Output 08/03/17 08/04/17 08/04/17 18:59 06:59 18:59 Intake Total 1384 812 1582 Balance 2623 700 5336 Intake: Oral 0321 570 8257 Other: # Voids 4 1 5 # Bowel Movements 1 1 Active Medications: Current Medications Acetaminophen (Tylenol) 650 mg PO Q4HR PRN PRN Reason: Mild Pain / Temp above 100 Stop: 09/16/17 15:39 Al Hydrox/Mg Hydrox/Simethicone (Maalox) 30 ml PO Q4HR PRN PRN Reason: GI DISTRESS Stop: 09/16/17 15:39 Chlorpromazine (Thorazine) 50 mg PO BID [facility] Stop: 10/01/17 16:59 Last Admin: 08/03/17 16:30 Dose: 50 mg Clonazepam (Klonopin) 2 mg PO BID [facility] PRN Reason: Protocol Stop: 09/17/17 08:59 Last Admin: 08/04/17 17:27 Dose: 2 mg Docusate Sodium (Colace) 100 mg PO BID [facility] Stop: 09/17/17 08:59 Last Admin: 08/04/17 17:27 Dose: 100 mg Famotidine (Pepcid) 20 mg PO DAILY [facility] Stop: 09/17/17 08:59 Last Admin: 08/04/17 09:05 Dose: 20 mg Ferrous Sulfate (Iron) 325 mg PO DAILY [facility] Stop: 09/17/17 08:59 Last Admin: 08/04/17 09:08 Dose: 325 mg Haloperidol (Haldol) 10 mg PO BID [facility] PRN Reason: Protocol Stop: 09/17/17 08:59 Last Admin: 08/04/17 17:28 Dose: 10 mg Levothyroxine Sodium (Synthroid) 0.05 mg PO QDAC [facility] Stop: 09/17/17 07:29 Last Admin: 08/04/17 06:38 Dose: 0.05 mg Lorazepam (Ativan) 0.5 mg PO Q4HR PRN; Protocol PRN Reason: Anxiety Stop: 08/17/17 15:39 Last Admin: 08/04/17 17:31 Dose: 0.5 mg Magnesium Hydroxide (Milk Of Magnesia) 30 ml PO DAILY PRN PRN Reason: Constipation Stop: 09/16/17 19:35 Quetiapine Fumarate (Seroquel) 200 mg PO BID [facility] PRN Reason: Protocol Stop: 10/01/17 16:59 Last Admin: 08/04/17 17:27 Dose: 200 mg Valproate Sodium (Depakene) 500 mg PO BID [facility] PRN Reason: Protocol Stop: 09/17/17 10:59 Last Admin: 08/04/17 17:00 Dose: 500 mg Zolpidem Tartrate (Ambien) 5 mg PO HS PRN PRN Reason: Insomnia Stop: 09/16/17 15:39 Last Admin: 07/30/17 20:20 Dose: 5 mg General: Alert, Cooperative HEENT: Atraumatic, PERRLA Neck: Supple, JVD Cardiovascular: Regular rate, Normal S1, Normal S2 Lungs: Clear to auscultation Abdomen: Bowel sounds, Soft - Procedures Procedures: Procedures Procedure Code Date INDIVID PSYCHOTHERAP NEC 94.39 06/08/08 OTHER GROUP THERAPY 94.44 06/08/08 Assessment/Plan - Problem List Patient Problems: All Active Problems AGITATION AND STRIKING OUT, DISRUPTIVE (Acute) - Assessment Assessment: 1.CHRONIC ANEMIA 2.HYPOTHYROIDISM 3.DEMENTIA. - Plan Plan: CONT CURRENT TREATMENT Nutritional Asmnt/Malnutr-PDOC - Dietary Evaluation Malnutrition Findings (Please click <Entered> for more info): Nutritional Asmnt/Malnutrition Start: 07/22/17 16: 21 Text: Status: Complete Freq: Document 07/22/17 16:21 TAYA (Rec: 07/22/17 16:35 TAYA [email or web address]) Nutritional Asmnt/Malnutrition Patient General Information Nutritional Screening Moderate Risk Diagnosis psychosis Pertinent Medical Hx/Surgical Hx hypothyroidism, chronic anemia , chronic constipation, dementia, psychosis Subjective Information Pt seen lying in bed at time of visit, confused. Pt reported good appetite, would like coffee with meal tray. Per EMR PO intake 1005. Current Diet Order/ Nutrition Support regular Pertinent Medications coalce, Iron, synthroid, seroquel Pertinent Labs 07/18 Na 133, glucose 128, A1c 6.8 Nutritional Hx/Data Height 1.6 m Height (Calculated Centimeters) 160.0 Current Weight (lbs) 93.894 kg Weight (Calculated Kilograms) 93.9 Weight (Calculated Grams) 65710.6 [place] Body Weight 115 Body Mass Index (BMI) 36.6 Weight Status Obese GI Symptoms GI Symptoms None Last BM 07/22 Difficult in: None Skin Integrity/Comment: blackened to left dorsal medical foot Current %PO Good (75-100%) Estimated Nutritional Goals BEE in Kcals: Using Current wt Calories/Kcals/Kg 25-30 Kcals Calculated 2586-6439 Protein: Using Current wt Protein g/k Protein Calculated 63 Fluid: ml 1575-1890ml (1ml/kcal) Nutritional Problem No current Nutrition Prob Problem N/A Malnutrition Alert Protein-Calorie Malnutrition N/A Is there a minimum of two criteria No selected? Query Text:Check all the applicable criteria. A minimum of two criteria are recommended for diagnosis of either severe or non-severe malnutrition. Intervention/Recommendation Comments 1. Continue with current diet as ordered. 2. Monitor PO intake, wt, labs and skin integrity 3. F/U as low risk in 7 days, 07/29 Expected Outcomes/Goals Expected Outcomes/Goals 1. PO intake to meet at least 75% of nutritional needs. 2. Wt stability, skin to remain intact, labs to approach WNL.
--- NOTE | 2017-08-04 22:38 | Progress Notes ---
DATE: 08/04/2017 Case was discussed with staff of the patient, reviewed records. The patient continues to do more or less the same, continues to have episodes of yelling and screaming and shouting. Continues to have poor insight. She is doing more or less the same since I decreased the Seroquel, so she is back, continues to happen or may discontinue it completely as she was not showing any progress and that we still have to give her a lot of injections and other medications and so far no side effects to the medication, no sedation, no nausea, and no extrapyramidal symptoms. We will continue to work with the patient in group therapy, milieu therapy, and adjust the medications as needed. JOB# [id number]
[2017-08-05] MEDS: Levothyroxine 0.05 Mg Tab PO SCH (06:41)
[2017-08-05] MEDS: Ferrous Sulfate 325 MG TAB PO SCH (08:35)
[2017-08-05] MEDS: Multivitamin w/ Minerals Tab PO SCH (08:35)
[2017-08-05] MEDS ORDERED: chlorproMAZINE 25 mg/mL 2mL Amp IM STA (12:30)
[2017-08-05] MEDS ORDERED: chlorproMAZINE 25 mg/mL 2mL Amp ONE (12:42)
--- NOTE | 2017-08-05 20:19 | Discharge Summary ---
DATE OF DISCHARGE: 08/05/2017 IDENTIFYING INFORMATION: The patient is a 57-year-old female. CHIEF COMPLAINT: The patient was sent from [place] because of agitated behavior and [id number] behavior. The patient had been seen here at [place]. [facility] came to the SNF Facility, decided to take her off medication and the patient became very aggressive and irritable, because they think she has developmental disability that she should not be on medication, which is not the case and is inappropriate because she is very aggressive and irritable, disruptive, so the patient was sent here. The patient was a poor historian. She is developmentally disabled, unable to participate in a meaningful conversation or make a safe plan for her self-care. COURSE IN THE HOSPITAL: The patient was started back on her medications. She was put back on the medication and the medication worked for her, Thorazine 50 mg twice a day and she was getting also Thorazine almost on a daily basis as needed. She was kept on Klonopin 2 mg twice a day. Also, she was on Seroquel 400 mg twice a day but went down on the dose because she was still getting agitated and I felt maybe it is not needed. I went down to 200 mg twice a day; however, I do plan to taper it later. She was also on Haldol 10 mg twice a day and Depakote 500 mg twice a day. [facility] said they could not take care of her. They wanted her to go to a different facility that can take care of people like her that the [facility] has been involved with, so the patient , she felt she could continue with me as an outpatient. Her Depakote level was 57, which is within acceptable therapeutic range. The patient was kept on her other medication by the medical doctor, Dr. López. FINAL DIAGNOSES: She was diagnosed with bipolar disorder with psychosis as well as mentally disabled. The patient will be going to SNF Facility. She will follow up with psychiatrist and her primary care physician. EXPECTED OUTCOME: Stable if the patient complies. JOB# [id number]
--- NOTE | 2017-08-05 20:58 | Internal Medicine Prog Note ---
Internal Medicine Subjective - Subjective Service Date: 08/05/17 Patient is:: verbal, in bed, confused Per staff patient has:: no adverse event (SHE HAS REDNESS OF LEFT SHOLDER SKIN) Internal Medicine Objective - Results Result Diagrams: 07/18/17 12:15 07/18/17 12:15 Recent Labs: Laboratory Last Values WBC 7.4 Th/cmm (4.8-10.8) 07/18/17 12:15 RBC 4.12 Mil/cmm (3.80-5.10) 07/18/17 12:15 Hgb 11.5 gm/dL (12-16) L 07/18/17 12:15 Hct 34.7 % (41.0-60) L 07/18/17 12:15 MCV 84.3 fl (81-100) 07/18/17 12:15 MCH 28.0 pg (27.0-31.0) 07/18/17 12: MCHC Differential 33.2 pg (28.0-36.0) 07/18/17 12:15 RDW 15.9 % (11.5-20.0) 07/18/17 12:15 Plt Count 186 Th/cmm (150-400) 07/18/17 12:15 MPV 8.4 fl 07/18/17 12:15 Neutrophils % 61.1 % (40.0-80.0) 07/18/17 12:15 Lymphocytes % 23.7 % (20.0-50.0) 07/18/17 12:15 Monocytes % 13.2 % (2.0-10.0) H 07/18/17 12:15 Eosinophils % 1.3 % (0.0-5.0) 07/18/17 12:15 Basophils % 0.7 % (0.0-2.0) 07/18/17 12:15 Sodium 133 mEq/L (136-145) L 07/18/17 12:15 Potassium 4.0 mEq/L (3.5-5.1) 07/18/17 12:15 Chloride 98 mEq/L (98-107) 07/18/17 12:15 Carbon Dioxide 27.8 mEq/L (21.0-31.0) 07/18/17 12:15 Anion Gap 11.2 (7.0-16.0) 04/12/18 12:15 BUN 10 mg/dL (7-25) 07/18/17 12:15 Creatinine 0.6 mg/dL (0.6-1.2) 07/18/17 12:15 Est GFR ( Amer) > 60.0 ml/min (>90) 07/18/17 12:15 Est GFR (Non-Af Amer) > 60.0 ml/min 07/18/17 12:15 BUN/Creatinine Ratio 16.7 07/18/17 12:15 Glucose 128 mg/dL (70-105) H 07/18/17 12:15 POC Glucose 116 MG/DL (70 - 105) H 07/30/17 16:06 Hemoglobin A1c % 6.8 % (4.0-6.0) H 07/18/17 12:15 Calcium 9.2 mg/dL (8.6-10.3) 07/18/17 12:15 Total Bilirubin 0.2 mg/dL (0.3-1.0) L 07/18/17 12:15 AST 12 U/L (13-39) L 07/18/17 12:15 ALT 8 U/L (7-52) 07/18/17 12:15 Alkaline Phosphatase 153 U/L (34-104) H 07/18/17 12:15 Total Protein 6.7 gm/dL (6.0-8.3) 07/18/17 12:15 Albumin 3.7 gm/dL (3.7-5.3) 07/18/17 12:15 Globulin 3.0 gm/dL 07/18/17 12:15 Albumin/Globulin Ratio 1.2 (1.0-1.8) 07/18/17 12:15 Triglycerides 61 mg/dL (<150) 07/18/17 12:15 Cholesterol 207 mg/dL (<200) H 07/18/17 12:15 LDL Cholesterol Direct 127 mg/dL (75-193) 07/18/17 12:15 HDL Cholesterol 61 mg/dL (23-92) 07/18/17 12:15 TSH 2.79 uIU/ml (0.34-5.60) 07/18/17 12:15 Salicylates < 25.0 mg/L (30.0-100.0) L 07/18/17 12:15 Acetaminophen < 10.0 ug/mL (10.0-30.0) L 07/18/17 12:15 Valproic Acid 57.0 ug/mL (50.0-100.0) 08/01/17 12:45 Ethyl Alcohol < 10 mg/dL (0-10) 07/18/17 12:15 RPR NONREACTIVE (NONREACTIVE) 07/18/17 12:15 - Physical Exam Vitals and I&O: Vital Signs Temp 97.9 F 08/05/17 20:24 Pulse 93 08/05/17 20:24 Resp 18 08/05/17 20:24 BP 93/55 08/05/17 20:24 Pulse Ox 97 08/05/17 20:24 Intake & Output 08/05/17 08/05/17 08/06/17 06:59 18:59 06:59 Intake Total 480 2600 240 Balance 480 2600 240 Intake: Oral 480 2600 240 Other: # Voids 1 5 1 # Bowel Movements 0 Active Medications: Current Medications Acetaminophen (Tylenol) 650 mg PO Q4HR PRN PRN Reason: Mild Pain / Temp above 100 Stop: 09/16/17 15:39 Al Hydrox/Mg Hydrox/Simethicone (Maalox) 30 ml PO Q4HR PRN PRN Reason: GI DISTRESS Stop: 09/16/17 15:39 Chlorpromazine (Thorazine) 50 mg PO BID [facility] Stop: 10/01/17 16:59 Last Admin: 08/05/17 17:08 Dose: 50 mg Clonazepam (Klonopin) 2 mg PO BID [facility] PRN Reason: Protocol Stop: 09/17/17 08:59 Last Admin: 08/05/17 17:08 Dose: 2 mg Docusate Sodium (Colace) 100 mg PO BID [facility] Stop: 09/17/17 08:59 Last Admin: 08/05/17 17:08 Dose: 100 mg Famotidine (Pepcid) 20 mg PO DAILY [facility] Stop: 09/17/17 08:59 Last Admin: 08/05/17 08:35 Dose: 20 mg Ferrous Sulfate (Iron) 325 mg PO DAILY [facility] Stop: 09/17/17 08:59 Last Admin: 08/05/17 08:35 Dose: 325 mg Haloperidol (Haldol) 10 mg PO BID [facility] PRN Reason: Protocol Stop: 09/17/17 08:59 Last Admin: 08/05/17 17:08 Dose: 10 mg Levothyroxine Sodium (Synthroid) 0.05 mg PO QDAC [facility] Stop: 09/17/17 07:29 Last Admin: 08/05/17 06:41 Dose: 0.05 mg Lorazepam (Ativan) 0.5 mg PO Q4HR PRN; Protocol PRN Reason: Anxiety Stop: 08/17/17 15:39 Last Admin: 08/05/17 11:23 Dose: 0.5 mg Magnesium Hydroxide (Milk Of Magnesia) 30 ml PO DAILY PRN PRN Reason: Constipation Stop: 09/16/17 19:35 Quetiapine Fumarate (Seroquel) 200 mg PO BID [facility] PRN Reason: Protocol Stop: 10/01/17 16:59 Last Admin: 08/05/17 17:08 Dose: 200 mg Valproate Sodium (Depakene) 500 mg PO BID [facility] PRN Reason: Protocol Stop: 09/17/17 10:59 Last Admin: 08/05/17 17:07 Dose: 500 mg Zolpidem Tartrate (Ambien) 5 mg PO HS PRN PRN Reason: Insomnia Stop: 09/16/17 15:39 Last Admin: 07/30/17 20:20 Dose: 5 mg General: demented HEENT: NC/AT, PERRLA, EOMI, anicteric sclerae, throat clear Neck: Supple, No JVD, No thyromegaly, +2 carotid pulse wo bruit, No LAD Lungs: CTAB Cardiovascular: Normal S1, Normal S2, without murmur Abdomen: non-tender, non-distended Extremities: rash Neurological: no change - Procedures Procedures: Procedures Procedure Code Date INDIVID PSYCHOTHERAP NEC 94.39 06/08/08 OTHER GROUP THERAPY 94.44 06/08/08 Internal Medicine Assmt/Plan - Assessment Assessment: 1.HYPOTHYROIDISM 2.DEMENTIA. - Plan Plan: CONTINUE ON CURRENT MEDICATION AND DIET. Nutritional Asmnt/Malnutr-PDOC - Dietary Evaluation Malnutrition Findings (Please click <Entered> for more info): Nutritional Asmnt/Malnutrition Start: 07/22/17 16: 21 Text: Status: Complete Freq: Document 07/22/17 16:21 ABDIEL (Rec: 07/22/17 16:35 LCHENG [email or web address]) Nutritional Asmnt/Malnutrition Patient General Information Nutritional Screening Moderate Risk Diagnosis psychosis Pertinent Medical Hx/Surgical Hx hypothyroidism, chronic anemia , chronic constipation, dementia, psychosis Subjective Information Pt seen lying in bed at time of visit, confused. Pt reported good appetite, would like coffee with meal tray. Per EMR PO intake 1005. Current Diet Order/ Nutrition Support regular Pertinent Medications coalce, Iron, synthroid, seroquel Pertinent Labs 07/18 Na 133, glucose 128, A1c 6.8 Nutritional Hx/Data Height 1.6 m Height (Calculated Centimeters) 160.0 Current Weight (lbs) 93.894 kg Weight (Calculated Kilograms) 93.9 Weight (Calculated Grams) 46313.6 [place] Body Weight 115 Body Mass Index (BMI) 36.6 Weight Status Obese GI Symptoms GI Symptoms None Last BM 07/22 Difficult in: None Skin Integrity/Comment: blackened to left dorsal medical foot Current %PO Good (75-100%) Estimated Nutritional Goals BEE in Kcals: Using Current wt Calories/Kcals/Kg 25-30 Kcals Calculated 0921-3084 Protein: Using Current wt Protein g/k Protein Calculated 63 Fluid: ml 1575-1890ml (1ml/kcal) Nutritional Problem No current Nutrition Prob Problem N/A Malnutrition Alert Protein-Calorie Malnutrition N/A Is there a minimum of two criteria No selected? Query Text:Check all the applicable criteria. A minimum of two criteria are recommended for diagnosis of either severe or non-severe malnutrition. Intervention/Recommendation Comments 1. Continue with current diet as ordered. 2. Monitor PO intake, wt, labs and skin integrity 3. F/U as low risk in 7 days, 07/29 Expected Outcomes/Goals Expected Outcomes/Goals 1. PO intake to meet at least 75% of nutritional needs. 2. Wt stability, skin to remain intact, labs to approach WNL.
[2017-08-06] MEDS: Levothyroxine 0.05 Mg Tab PO SCH (06:43)
[2017-08-06] MEDS: Ferrous Sulfate 325 MG TAB PO SCH (08:40)
[2017-08-06] MEDS: Multivitamin w/ Minerals Tab PO SCH (08:42)
--- NOTE | 2017-08-06 11:11 | Internal Medicine Prog Note ---
Internal Medicine Subjective - Subjective Service Date: 08/06/17 Patient seen and examined:: with staff Patient is:: verbal, in wheelchair, confused Per staff patient has:: no adverse event (SHE HAS REDNESS OF LEFT SHOLDER SKIN) Internal Medicine Objective - Results Result Diagrams: 07/18/17 12:15 07/18/17 12:15 Recent Labs: Laboratory Last Values WBC 7.4 Th/cmm (4.8-10.8) 07/18/17 12:15 RBC 4.12 Mil/cmm (3.80-5.10) 07/18/17 12:15 Hgb 11.5 gm/dL (12-16) L 07/18/17 12:15 Hct 34.7 % (41.0-60) L 07/18/17 12:15 MCV 84.3 fl (81-100) 07/18/17 12:15 MCH 28.0 pg (27.0-31.0) 07/18/17 12:15 MCHC Differential 33.2 pg (28.0-36.0) 07/18/17 12:15 RDW 15.9 % (11.5-20.0) 07/18/17 12:15 Plt Count 186 Th/cmm (150-400) 07/18/17 12:15 MPV 8.4 fl 07/18/17 12:15 Neutrophils % 61.1 % (40.0-80.0) 07/18/17 12:15 Lymphocytes % 23.7 % (20.0-50.0) 07/18/17 12:15 Monocytes % 13.2 % (2.0-10.0) H 07/18/17 12:15 Eosinophils % 1.3 % (0.0-5.0) 07/18/17 12:15 Basophils % 0.7 % (0.0-2.0) 07/18/17 12:15 Sodium 133 mEq/L (136-145) L 07/18/17 12:15 Potassium 4.0 mEq/L (3.5-5.1) 07/18/17 12:15 Chloride 98 mEq/L (98-107) 07/18/17 12:15 Carbon Dioxide 27.8 mEq/L (21.0-31.0) 07/18/17 12:15 Anion Gap 11.2 (7.0-16.0) 07/18/17 12:15 BUN 10 mg/dL (7-25) 07/18/17 12:15 Creatinine 0.6 mg/dL (0.6-1.2) 07/18/17 12:15 Est GFR ( Amer) > 60.0 ml/min (>90) 07/18/17 12:15 Est GFR (Non-Af Amer) > 60.0 ml/min 07/18/17 12:15 BUN/Creatinine Ratio 16.7 07/18/17 12:15 Glucose 128 mg/dL (70-105) H 07/18/17 12:15 POC Glucose 116 MG/DL (70 - 105) H 07/30/17 16:06 Hemoglobin A1c % 6.8 % (4.0-6.0) H 07/18/17 12:15 Calcium 9.2 mg/dL (8.6-10.3) 07/18/17 12:15 Total Bilirubin 0.2 mg/dL (0.3-1.0) L 07/18/17 12:15 AST 12 U/L (13-39) L 07/18/17 12:15 ALT 8 U/L (7-52) 07/18/17 12:15 Alkaline Phosphatase 153 U/L (34-104) H 07/18/17 12:15 Total Protein 6.7 gm/dL (6.0-8.3) 07/18/17 12:15 Albumin 3.7 gm/dL (3.7-5.3) 07/18/17 12:15 Globulin 3.0 gm/dL 07/18/17 12:15 Albumin/Globulin Ratio 1.2 (1.0-1.8) 07/18/17 12:15 Triglycerides 61 mg/dL (<150) 07/18/17 12:15 Cholesterol 207 mg/dL (<200) H 07/18/17 12:15 LDL Cholesterol Direct 127 mg/dL (75-193) 07/18/17 12:15 HDL Cholesterol 61 mg/dL (23-92) 07/18/17 12:15 TSH 2.79 uIU/ml (0.34-5.60) 07/18/17 12:15 Salicylates < 25.0 mg/L (30.0-100.0) L 07/18/17 12:15 Acetaminophen < 10.0 ug/mL (10.0-30.0) L 07/18/17 12:15 Valproic Acid 57.0 ug/mL (50.0-100.0) 08/01/17 12:45 Ethyl Alcohol < 10 mg/dL (0-10) 07/18/17 12:15 RPR NONREACTIVE (NONREACTIVE) 07/18/17 12:15 - Physical Exam Vitals and I&O: Vital Signs Temp 97.0 F 08/06/17 06:12 Pulse 88 08/06/17 06:12 Resp 20 08/06/17 06:12 BP 115/76 08/06/17 06:12 Pulse Ox 95 08/06/17 06:12 Intake & Output 08/05/17 08/06/17 08/06/17 18:59 06:59 18:59 Intake Total 2600 480 Balance 2600 480 Intake: Oral 2600 480 Other: # Voids 5 2 # Bowel Movements 0 Active Medications: Current Medications Acetaminophen (Tylenol) 650 mg PO Q4HR PRN PRN Reason: Mild Pain / Temp above 100 Stop: 09/16/17 15:39 Al Hydrox/Mg Hydrox/Simethicone (Maalox) 30 ml PO Q4HR PRN PRN Reason: GI DISTRESS Stop: 09/16/17 15:39 Chlorpromazine (Thorazine) 50 mg PO BID [facility] Stop: 10/01/17 16:59 Last Admin: 08/06/17 08:41 Dose: 50 mg Clonazepam (Klonopin) 2 mg PO BID [facility] PRN Reason: Protocol Stop: 09/17/17 08:59 Last Admin: 08/06/17 08:44 Dose: 2 mg Docusate Sodium (Colace) 100 mg PO BID [facility] Stop: 09/17/17 08:59 Last Admin: 08/06/17 08:43 Dose: 100 mg Famotidine (Pepcid) 20 mg PO DAILY [facility] Stop: 09/17/17 08:59 Last Admin: 08/06/17 08:44 Dose: 20 mg Ferrous Sulfate (Iron) 325 mg PO DAILY [facility] Stop: 09/17/17 08:59 Last Admin: 08/06/17 08:40 Dose: 325 mg Haloperidol (Haldol) 10 mg PO BID [facility] PRN Reason: Protocol Stop: 09/17/17 08:59 Last Admin: 08/06/17 08:43 Dose: 10 mg Levothyroxine Sodium (Synthroid) 0.05 mg PO QDAC [facility] Stop: 09/17/17 07:29 Last Admin: 08/06/17 06:43 Dose: 0.05 mg Lorazepam (Ativan) 0.5 mg PO Q4HR PRN; Protocol PRN Reason: Anxiety Stop: 08/17/17 15:39 Last Admin: 08/05/17 11:23 Dose: 0.5 mg Magnesium Hydroxide (Milk Of Magnesia) 30 ml PO DAILY PRN PRN Reason: Constipation Stop: 09/16/17 19:35 Quetiapine Fumarate (Seroquel) 200 mg PO BID [facility] PRN Reason: Protocol Stop: 10/01/17 16:59 Last Admin: 08/06/17 08:41 Dose: 200 mg Valproate Sodium (Depakene) 500 mg PO BID [facility] PRN Reason: Protocol Stop: 09/17/17 10:59 Last Admin: 08/06/17 08:39 Dose: 500 mg Zolpidem Tartrate (Ambien) 5 mg PO HS PRN PRN Reason: Insomnia Stop: 09/16/17 15:39 Last Admin: 07/30/17 20:20 Dose: 5 mg General: demented HEENT: NC/AT, PERRLA, EOMI, anicteric sclerae, throat clear Neck: Supple, No JVD, No thyromegaly, +2 carotid pulse wo bruit, No LAD Lungs: CTAB Cardiovascular: Normal S1, Normal S2, without murmur Abdomen: non-tender, non-distended Extremities: rash Neurological: no change - Procedures Procedures: Procedures Procedure Code Date INDIVID PSYCHOTHERAP NEC 94.39 06/08/08 OTHER GROUP THERAPY 94.44 06/08/08 Internal Medicine Assmt/Plan - Assessment Assessment: 1.HYPOTHYROIDISM 2.DEMENTIA. - Plan Plan: CONTINUE ON CURRENT MEDICATION AND DIET. Nutritional Asmnt/Malnutr-PDOC - Dietary Evaluation Malnutrition Findings (Please click <Entered> for more info): Nutritional Asmnt/Malnutrition Start: 07/22/17 16: 21 Text: Status: Complete Freq: Document 07/22/17 16:21 LCHENG (Rec: 07/22/17 16:35 LCHENG [email or web address]) Nutritional Asmnt/Malnutrition Patient General Information Nutritional Screening Moderate Risk Diagnosis psychosis Pertinent Medical Hx/Surgical Hx hypothyroidism, chronic anemia , chronic constipation, dementia, psychosis Subjective Information Pt seen lying in bed at time of visit, confused. Pt reported good appetite, would like coffee with meal tray. Per EMR PO intake 1005. Current Diet Order/ Nutrition Support regular Pertinent Medications coalce, Iron, synthroid, seroquel Pertinent Labs 07/18 Na 133, glucose 128, A1c 6.8 Nutritional Hx/Data Height 1.6 m Height (Calculated Centimeters) 160.0 Current Weight (lbs) 93.894 kg Weight (Calculated Kilograms) 93.9 Weight (Calculated Grams) 97064.6 [place] Body Weight 115 Body Mass Index (BMI) 36.6 Weight Status Obese GI Symptoms GI Symptoms None Last BM 07/22 Difficult in: None Skin Integrity/Comment: blackened to left dorsal medical foot Current %PO Good (75-100%) Estimated Nutritional Goals BEE in Kcals: Using Current wt Calories/Kcals/Kg 25-30 Kcals Calculated 8813-3501 Protein: Using Current wt Protein g/k Protein Calculated 63 Fluid: ml 1575-1890ml (1ml/kcal) Nutritional Problem No current Nutrition Prob Problem N/A Malnutrition Alert Protein-Calorie Malnutrition N/A Is there a minimum of two criteria No selected? Query Text:Check all the applicable criteria. A minimum of two criteria are recommended for diagnosis of either severe or non-severe malnutrition. Intervention/Recommendation Comments 1. Continue with current diet as ordered. 2. Monitor PO intake, wt, labs and skin integrity 3. F/U as low risk in 7 days, 07/29 Expected Outcomes/Goals Expected Outcomes/Goals 1. PO intake to meet at least 75% of nutritional needs. 2. Wt stability, skin to remain intact, labs to approach WNL.
[2017-08-07] MEDS: Levothyroxine 0.05 Mg Tab PO SCH (06:39)
[2017-08-07] MEDS: Ferrous Sulfate 325 MG TAB PO SCH (09:20)
[2017-08-07] MEDS: Multivitamin w/ Minerals Tab PO SCH (09:20)
[2017-08-07] MEDS ORDERED: chlorproMAZINE 25 mg/mL 2mL Amp ONE (09:52)
[2017-08-07] MEDS ORDERED: chlorproMAZINE 25 mg/mL 2mL Amp IM ONE (10:05)
--- NOTE | 2017-08-07 20:04 | Progress Notes ---
DATE: 08/07/2017 Case discussed with staff of the patient. The patient is still doing the same though staff reports she is easily redirectable. She is sleeping better, eating better. She is less yelling and screaming, but she keeps asking for coffee. She is compliant with the medication with no side effects, no sedation, no nausea, no extrapyramidal symptoms. Continues, however, to be unpredictable, impulsive. She is mentally disabled. I do not think that would generally stop completely and she tolerated my decreasing her Seroquel dose as I do not think it was doing much for her and I will be discontinuing the Seroquel completely since there was no good outcome out of it as we continue to have to give her here injections because of her acting out behavior. She also takes Haldol and I do not want her to get that many medications. She is not benefitting from it and there is a possibility she may be discharged today if they find her placement. She will be going to a nursing facility where I expect that they will be able to take care of her at the lesser level of care. Meanwhile, we will continue to work with the patient in group therapy, milieu therapy, adjust medication as needed. JOB# [id number]
--- NOTE | 2017-08-07 22:00 | Internal Medicine Prog Note ---
Internal Medicine Subjective - Subjective Service Date: 08/07/17 Patient seen and examined:: with staff Patient is:: verbal, in wheelchair, confused Per staff patient has:: no adverse event (SHE HAS REDNESS OF LEFT SHOLDER SKIN) Internal Medicine Objective - Results Result Diagrams: 07/18/17 12:15 07/18/17 12:15 Recent Labs: Laboratory Last Values WBC 7.4 Th/cmm (4.8-10.8) 07/18/17 12:15 RBC 4.12 Mil/cmm (3.80-5.10) 07/18/17 12:15 Hgb 11.5 gm/dL (12-16) L 07/18/17 12:15 Hct 34.7 % (41.0-60) L 07/18/17 12:15 MCV 84.3 fl (81-100) 07/18/17 12:15 MCH 28.0 pg (27.0-31.0) 07/18/17 12:15 MCHC Differential 33.2 pg (28.0-36.0) 07/18/17 12:15 RDW 15.9 % (11.5-20.0) 07/18/17 12:15 Plt Count 186 Th/cmm (150-400) 07/18/17 12:15 MPV 8.4 fl 07/18/17 12:15 Neutrophils % 61.1 % (40.0-80.0) 07/18/17 12:15 Lymphocytes % 23.7 % (20.0-50.0) 07/18/17 12:15 Monocytes % 13.2 % (2.0-10.0) H 07/18/17 12:15 Eosinophils % 1.3 % (0.0-5.0) 07/18/17 12:15 Basophils % 0.7 % (0.0-2.0) 07/18/17 12:15 Sodium 133 mEq/L (136-145) L 07/18/17 12:15 Potassium 4.0 mEq/L (3.5-5.1) 07/18/17 12:15 Chloride 98 mEq/L (98-107) 07/18/17 12:15 Carbon Dioxide 27.8 mEq/L (21.0-31.0) 07/18/17 12:15 Anion Gap 11.2 (7.0-16.0) 07/18/17 12:15 BUN 10 mg/dL (7-25) 07/18/17 12:15 Creatinine 0.6 mg/dL (0.6-1.2) 07/18/17 12:15 Est GFR ( Amer) > 60.0 ml/min (>90) 07/18/17 12:15 Est GFR (Non-Af Amer) > 60.0 ml/min 07/18/17 12:15 BUN/Creatinine Ratio 16.7 07/18/17 12:15 Glucose 128 mg/dL (70-105) H 07/18/17 12:15 POC Glucose 116 MG/DL (70 - 105) H 07/30/17 16:06 Hemoglobin A1c % 6.8 % (4.0-6.0) H 07/18/17 12:15 Calcium 9.2 mg/dL (8.6-10.3) 07/18/17 12:15 Total Bilirubin 0.2 mg/dL (0.3-1.0) L 07/18/17 12:15 AST 12 U/L (13-39) L 07/18/17 12:15 ALT 8 U/L (7-52) 07/18/17 12:15 Alkaline Phosphatase 153 U/L (34-104) H 07/18/17 12:15 Total Protein 6.7 gm/dL (6.0-8.3) 07/18/17 12:15 Albumin 3.7 gm/dL (3.7-5.3) 07/18/17 12:15 Globulin 3.0 gm/dL 07/18/17 12:15 Albumin/Globulin Ratio 1.2 (1.0-1.8) 07/18/17 12:15 Triglycerides 61 mg/dL (<150) 07/18/17 12:15 Cholesterol 207 mg/dL (<200) H 07/18/17 12:15 LDL Cholesterol Direct 127 mg/dL (75-193) 07/18/17 12:15 HDL Cholesterol 61 mg/dL (23-92) 07/18/17 12:15 TSH 2.79 uIU/ml (0.34-5.60) 07/18/17 12:15 Salicylates < 25.0 mg/L (30.0-100.0) L 07/18/17 12:15 Acetaminophen < 10.0 ug/mL (10.0-30.0) L 07/18/17 12:15 Valproic Acid 57.0 ug/mL (50.0-100.0) 08/01/17 12:45 Ethyl Alcohol < 10 mg/dL (0-10) 07/18/17 12:15 RPR NONREACTIVE (NONREACTIVE) 07/18/17 12:15 - Physical Exam Vitals and I&O: Vital Signs Temp 97.2 F 08/07/17 20:00 Pulse 85 08/07/17 20:00 Resp 20 08/07/17 20:00 BP 127/85 08/07/17 20:00 Pulse Ox 98 08/07/17 20:00 Intake & Output 08/07/17 08/07/17 08/08/17 06:59 18:59 06:59 Intake Total 120 1500 Balance 120 1500 Intake: Oral 120 1500 Other: # Voids 3 4 Active Medications: Current Medications Acetaminophen (Tylenol) 650 mg PO Q4HR PRN PRN Reason: Mild Pain / Temp above 100 Stop: 09/16/17 15:39 Al Hydrox/Mg Hydrox/Simethicone (Maalox) 30 ml PO Q4HR PRN PRN Reason: GI DISTRESS Stop: 09/16/17 15:39 Chlorpromazine (Thorazine) 50 mg PO BID [facility] Stop: 10/01/17 16:59 Last Admin: 08/07/17 16:54 Dose: 50 mg Clonazepam (Klonopin) 2 mg PO BID [facility] PRN Reason: Protocol Stop: 09/17/17 08:59 Last Admin: 08/07/17 16:54 Dose: 2 mg Docusate Sodium (Colace) 100 mg PO BID [facility] Stop: 09/17/17 08:59 Last Admin: 08/07/17 16:54 Dose: 100 mg Famotidine (Pepcid) 20 mg PO DAILY [facility] Stop: 09/17/17 08:59 Last Admin: 08/07/17 09:19 Dose: 20 mg Ferrous Sulfate (Iron) 325 mg PO DAILY [facility] Stop: 09/17/17 08:59 Last Admin: 08/07/17 09:20 Dose: 325 mg Haloperidol (Haldol) 10 mg PO BID [facility] PRN Reason: Protocol Stop: 09/17/17 08:59 Last Admin: 08/07/17 16:55 Dose: 10 mg Levothyroxine Sodium (Synthroid) 0.05 mg PO QDAC [facility] Stop: 09/17/17 07:29 Last Admin: 08/07/17 06:39 Dose: 0.05 mg Lorazepam (Ativan) 0.5 mg PO Q4HR PRN; Protocol PRN Reason: Anxiety Stop: 08/17/17 15:39 Last Admin: 08/07/17 20:26 Dose: 0.5 mg Magnesium Hydroxide (Milk Of Magnesia) 30 ml PO DAILY PRN PRN Reason: Constipation Stop: 09/16/17 19:35 Valproate Sodium (Depakene) 500 mg PO BID [facility] PRN Reason: Protocol Stop: 09/17/17 10:59 Last Admin: 08/07/17 16:55 Dose: 500 mg Zolpidem Tartrate (Ambien) 5 mg PO HS PRN PRN Reason: Insomnia Stop: 09/16/17 15:39 Last Admin: 07/30/17 20:20 Dose: 5 mg General: demented HEENT: NC/AT, PERRLA, EOMI, anicteric sclerae, throat clear Neck: Supple, No JVD, No thyromegaly, +2 carotid pulse wo bruit, No LAD Lungs: CTAB Cardiovascular: Normal S1, Normal S2, without murmur Abdomen: non-tender, non-distended Extremities: rash Neurological: no change - Procedures Procedures: Procedures Procedure Code Date INDIVID PSYCHOTHERAP NEC 94.39 06/08/08 OTHER GROUP THERAPY 94.44 06/08/08 Internal Medicine Assmt/Plan - Assessment Assessment: 1.HYPOTHYROIDISM 2.DEMENTIA. - Plan Plan: CONTINUE ON CURRENT MEDICATION AND DIET. Nutritional Asmnt/Malnutr-PDOC - Dietary Evaluation Malnutrition Findings (Please click <Entered> for more info): Nutritional Asmnt/Malnutrition Start: 07/22/17 16: 21 Text: Status: Complete Freq: Document 07/22/17 16:21 ABDIELG (Rec: 07/22/17 16:35 [email or web address]) Nutritional Asmnt/Malnutrition Patient General Information Nutritional Screening Moderate Risk Diagnosis psychosis Pertinent Medical Hx/Surgical Hx hypothyroidism, chronic anemia , chronic constipation, dementia, psychosis Subjective Information Pt seen lying in bed at time of visit, confused. Pt reported good appetite, would like coffee with meal tray. Per EMR PO intake 1005. Current Diet Order/ Nutrition Support regular Pertinent Medications coalce, Iron, synthroid, seroquel Pertinent Labs 07/18 Na 133, glucose 128, A1c 6.8 Nutritional Hx/Data Height 1.6 m Height (Calculated Centimeters) 160.0 Current Weight (lbs) 93.894 kg Weight (Calculated Kilograms) 93.9 Weight (Calculated Grams) 44529.6 [place] Body Weight 115 Body Mass Index (BMI) 36.6 Weight Status Obese GI Symptoms GI Symptoms None Last BM 07/22 Difficult in: None Skin Integrity/Comment: blackened to left dorsal medical foot Current %PO Good (75-100%) Estimated Nutritional Goals BEE in Kcals: Using Current wt Calories/Kcals/Kg 25-30 Kcals Calculated 6805-8056 Protein: Using Current wt Protein g/k Protein Calculated 63 Fluid: ml 1575-1890ml (1ml/kcal) Nutritional Problem No current Nutrition Prob Problem N/A Malnutrition Alert Protein-Calorie Malnutrition N/A Is there a minimum of two criteria No selected? Query Text:Check all the applicable criteria. A minimum of two criteria are recommended for diagnosis of either severe or non-severe malnutrition. Intervention/Recommendation Comments 1. Continue with current diet as ordered. 2. Monitor PO intake, wt, labs and skin integrity 3. F/U as low risk in 7 days, 07/29 Expected Outcomes/Goals Expected Outcomes/Goals 1. PO intake to meet at least 75% of nutritional needs. 2. Wt stability, skin to remain intact, labs to approach WNL.
[2017-08-08] MEDS: Levothyroxine 0.05 Mg Tab PO SCH (06:37)
[2017-08-08] MEDS: Ferrous Sulfate 325 MG TAB PO SCH (08:05)
[2017-08-08] MEDS: Multivitamin w/ Minerals Tab PO SCH (08:05)
[2017-08-08] MEDS ORDERED: chlorproMAZINE 25 mg/mL 2mL Amp ONE (09:14)
[2017-08-08] MEDS ORDERED: chlorproMAZINE 25 mg/mL 2mL Amp IM ONE (09:20)
--- NOTE | 2017-08-08 16:32 | Internal Medicine Prog Note ---
Internal Medicine Subjective - Subjective Service Date: 08/08/17 Patient seen and examined:: with staff (SHE IS DOING BETTER,LESS AGITATED.) Patient is:: verbal, in wheelchair, confused Per staff patient has:: no adverse event (SHE HAS REDNESS OF LEFT SHOLDER SKIN) Internal Medicine Objective - Results Result Diagrams: 07/18/17 12:15 07/18/17 12:15 Recent Labs: Laboratory Last Values WBC 7.4 Th/cmm (4.8-10.8) 07/18/17 12:15 RBC 4.12 Mil/cmm (3.80-5.10) 07/18/17 12:15 Hgb 11.5 gm/dL (12-16) L 07/18/17 12:15 Hct 34.7 % (41.0-60) L 07/18/17 12:15 MCV 84.3 fl (81-100) 07/18/17 12:15 MCH 28.0 pg (27.0-31.0) 07/18/17 12:15 MCHC Differential 33.2 pg (28.0-36.0) 07/18/17 12:15 RDW 15.9 % (11.5-20.0) 07/18/17 12:15 Plt Count 186 Th/cmm (150-400) 07/18/17 12:15 MPV 8.4 fl 07/18/17 12:15 Neutrophils % 61.1 % (40.0-80.0) 07/18/17 12:15 Lymphocytes % 23.7 % (20.0-50.0) 07/18/17 12:15 Monocytes % 13.2 % (2.0-10.0) H 07/18/17 12:15 Eosinophils % 1.3 % (0.0-5.0) 07/18/17 12:15 Basophils % 0.7 % (0.0-2.0) 07/18/17 12:15 Sodium 133 mEq/L (136-145) L 07/18/17 12:15 Potassium 4.0 mEq/L (3.5-5.1) 07/18/17 12:15 Chloride 98 mEq/L (98-107) 07/18/17 12:15 Carbon Dioxide 27.8 mEq/L (21.0-31.0) 07/18/17 12:15 Anion Gap 11.2 (7.0-16.0) 07/18/17 12:15 BUN 10 mg/dL (7-25) 07/18/17 12:15 Creatinine 0.6 mg/dL (0.6-1.2) 07/18/17 12:15 Est GFR ( Amer) > 60.0 ml/min (>90) 07/18/17 12:15 Est GFR (Non-Af Amer) > 60.0 ml/min 07/18/17 12:15 BUN/Creatinine Ratio 16.7 07/18/17 12:15 Glucose 128 mg/dL (70-105) H 07/18/17 12:15 POC Glucose 116 MG/DL (70 - 105) H 07/30/17 16:06 Hemoglobin A1c % 6.8 % (4.0-6.0) H 07/18/17 12:15 Calcium 9.2 mg/dL (8.6-10.3) 07/18/17 12:15 Total Bilirubin 0.2 mg/dL (0.3-1.0) L 07/18/17 12:15 AST 12 U/L (13-39) L 07/18/17 12:15 ALT 8 U/L (7-52) 07/18/17 12:15 Alkaline Phosphatase 153 U/L (34-104) H 07/18/17 12:15 Total Protein 6.7 gm/dL (6.0-8.3) 07/18/17 12:15 Albumin 3.7 gm/dL (3.7-5.3) 07/18/17 12:15 Globulin 3.0 gm/dL 07/18/17 12:15 Albumin/Globulin Ratio 1.2 (1.0-1.8) 07/18/17 12:15 Triglycerides 61 mg/dL (<150) 07/18/17 12:15 Cholesterol 207 mg/dL (<200) H 07/18/17 12:15 LDL Cholesterol Direct 127 mg/dL (75-193) 07/18/17 12:15 HDL Cholesterol 61 mg/dL (23-92) 07/18/17 12:15 TSH 2.79 uIU/ml (0.34-5.60) 07/18/17 12:15 Salicylates < 25.0 mg/L (30.0-100.0) L 07/18/17 12:15 Acetaminophen < 10.0 ug/mL (10.0-30.0) L 07/18/17 12:15 Valproic Acid 57.0 ug/mL (50.0-100.0) 08/01/17 12:45 Ethyl Alcohol < 10 mg/dL (0-10) 07/18/17 12:15 RPR NONREACTIVE (NONREACTIVE) 07/18/17 12:15 - Physical Exam Vitals and I&O: Vital Signs Temp 97.4 F 08/08/17 14:45 Pulse 92 08/08/17 14:45 Resp 20 08/08/17 14:45 BP 129/75 08/08/17 14:45 Pulse Ox 97 08/08/17 14:45 Intake & Output 08/07/17 08/08/17 08/08/17 18:59 06:59 18:59 Intake Total 1500 120 Balance 1500 120 Intake: Oral 1500 120 Other: # Voids 4 3 Active Medications: Current Medications Acetaminophen (Tylenol) 650 mg PO Q4HR PRN PRN Reason: Mild Pain / Temp above 100 Stop: 09/16/17 15:39 Al Hydrox/Mg Hydrox/Simethicone (Maalox) 30 ml PO Q4HR PRN PRN Reason: GI DISTRESS Stop: 09/16/17 15:39 Chlorpromazine (Thorazine) 75 mg PO BID [facility] Stop: 10/07/17 11:35 Clonazepam (Klonopin) 2 mg PO BID [facility] PRN Reason: Protocol Stop: 09/17/17 08:59 Last Admin: 08/08/17 08:05 Dose: 2 mg Docusate Sodium (Colace) 100 mg PO BID [facility] Stop: 09/17/17 08:59 Last Admin: 08/08/17 08:05 Dose: 100 mg Famotidine (Pepcid) 20 mg PO DAILY [facility] Stop: 09/17/17 08:59 Last Admin: 08/08/17 08:05 Dose: 20 mg Ferrous Sulfate (Iron) 325 mg PO DAILY [facility] Stop: 09/17/17 08:59 Last Admin: 08/08/17 08:05 Dose: 325 mg Haloperidol (Haldol) 10 mg PO BID [facility] PRN Reason: Protocol Stop: 09/17/17 08:59 Last Admin: 08/08/17 08:05 Dose: 10 mg Levothyroxine Sodium (Synthroid) 0.05 mg PO QDAC [facility] Stop: 09/17/17 07:29 Last Admin: 08/08/17 06:37 Dose: 0.05 mg Lorazepam (Ativan) 0.5 mg PO Q4HR PRN; Protocol PRN Reason: Anxiety Stop: 08/17/17 15:39 Last Admin: 08/08/17 12:50 Dose: 0.5 mg Magnesium Hydroxide (Milk Of Magnesia) 30 ml PO DAILY PRN PRN Reason: Constipation Stop: 09/16/17 19:35 Valproate Sodium (Depakene) 500 mg PO BID [facility] PRN Reason: Protocol Stop: 09/17/17 10:59 Last Admin: 08/08/17 08:05 Dose: 500 mg Zolpidem Tartrate (Ambien) 5 mg PO HS PRN PRN Reason: Insomnia Stop: 09/16/17 15:39 Last Admin: 07/30/17 20:20 Dose: 5 mg General: demented HEENT: NC/AT, PERRLA, EOMI, anicteric sclerae, throat clear Neck: Supple, No JVD, No thyromegaly, +2 carotid pulse wo bruit, No LAD Lungs: CTAB Cardiovascular: Normal S1, Normal S2, without murmur Abdomen: non-tender, non-distended Extremities: rash Neurological: no change - Procedures Procedures: Procedures Procedure Code Date INDIVID PSYCHOTHERAP NEC 94.39 06/08/08 OTHER GROUP THERAPY 94.44 06/08/08 Internal Medicine Assmt/Plan - Assessment Assessment: 1.HYPOTHYROIDISM 2.DEMENTIA. - Plan Plan: CONTINUE ON CURRENT MEDICATION AND DIET. Nutritional Asmnt/Malnutr-PDOC - Dietary Evaluation Malnutrition Findings (Please click <Entered> for more info): Nutritional Asmnt/Malnutrition Start: 07/22/17 16: 21 Text: Status: Complete Freq: Document 07/22/17 16:21 TAYA (Rec: 07/22/17 16:35 [email or web address]) Nutritional Asmnt/Malnutrition Patient General Information Nutritional Screening Moderate Risk Diagnosis psychosis Pertinent Medical Hx/Surgical Hx hypothyroidism, chronic anemia , chronic constipation, dementia, psychosis Subjective Information Pt seen lying in bed at time of visit, confused. Pt reported good appetite, would like coffee with meal tray. Per EMR PO intake 1005. Current Diet Order/ Nutrition Support regular Pertinent Medications coalce, Iron, synthroid, seroquel Pertinent Labs 07/18 Na 133, glucose 128, A1c 6.8 Nutritional Hx/Data Height 1.6 m Height (Calculated Centimeters) 160.0 Current Weight (lbs) 93.894 kg Weight (Calculated Kilograms) 93.9 Weight (Calculated Grams) 73232.6 [place] Body Weight 115 Body Mass Index (BMI) 36.6 Weight Status Obese GI Symptoms GI Symptoms None Last BM 07/22 Difficult in: None Skin Integrity/Comment: blackened to left dorsal medical foot Current %PO Good (75-100%) Estimated Nutritional Goals BEE in Kcals: Using Current wt Calories/Kcals/Kg 25-30 Kcals Calculated 0035-9797 Protein: Using Current wt Protein g/k Protein Calculated 63 Fluid: ml 1575-1890ml (1ml/kcal) Nutritional Problem No current Nutrition Prob Problem N/A Malnutrition Alert Protein-Calorie Malnutrition N/A Is there a minimum of two criteria No selected? Query Text:Check all the applicable criteria. A minimum of two criteria are recommended for diagnosis of either severe or non-severe malnutrition. Intervention/Recommendation Comments 1. Continue with current diet as ordered. 2. Monitor PO intake, wt, labs and skin integrity 3. F/U as low risk in 7 days, 07/29 Expected Outcomes/Goals Expected Outcomes/Goals 1. PO intake to meet at least 75% of nutritional needs. 2. Wt stability, skin to remain intact, labs to approach WNL.
--- NOTE | 2017-08-09 01:32 | Progress Notes ---
DATE: 08/08/2017 Case was discussed with staff of the patient, reviewed records. The patient continues to have episodes, where she is very agitated. Continues to have episodes of yelling and screaming, unpredictable, impulsive the staff. The charge nurse tell me that the chlorpromazine 50 mg was no longer working for her. I did take her off the Seroquel. Seroquel was not working anyway, so I tried to maximize the effect of her current medication rather than having to give her 3 different medications. I will be increasing the Thorazine to 75 mg twice a day and so far no side effects, no sedation, no nausea, and no extrapyramidal symptoms. Still unpredictable, impulsive, needing redirection, and demanding at times. She is developmentally disabled. We will continue to work with patient in group therapy, milieu therapy, and adjust the medications as needed. JOB# [id number]
[2017-08-09] MEDS: Levothyroxine 0.05 Mg Tab PO SCH (06:43)
[2017-08-09] MEDS: Ferrous Sulfate 325 MG TAB PO SCH (08:13)
[2017-08-09] MEDS: Multivitamin w/ Minerals Tab PO SCH (08:13)
--- NOTE | 2017-08-09 21:55 | Internal Medicine Prog Note ---
Internal Medicine Subjective - Subjective Service Date: 08/09/17 Patient seen and examined:: with staff Patient is:: verbal, in wheelchair, confused Per staff patient has:: no adverse event (SHE HAS REDNESS OF LEFT SHOLDER SKIN) Internal Medicine Objective - Results Result Diagrams: 07/18/17 12:15 07/18/17 12:15 Recent Labs: Laboratory Last Values WBC 7.4 Th/cmm (4.8-10.8) 07/18/17 12:15 RBC 4.12 Mil/cmm (3.80-5.10) 07/18/17 12:15 Hgb 11.5 gm/dL (12-16) L 07/18/17 12:15 Hct 34.7 % (41.0-60) L 07/18/17 12:15 MCV 84.3 fl (81-100) 07/18/17 12:15 MCH 28.0 pg (27.0-31.0) 07/18/17 12:15 MCHC Differential 33.2 pg (28.0-36.0) 07/18/17 12:15 RDW 15.9 % (11.5-20.0) 07/18/17 12:15 Plt Count 186 Th/cmm (150-400) 07/18/17 12:15 MPV 8.4 fl 07/18/17 12:15 Neutrophils % 61.1 % (40.0-80.0) 07/18/17 12:15 Lymphocytes % 23.7 % (20.0-50.0) 07/18/17 12:15 Monocytes % 13.2 % (2.0-10.0) H 07/18/17 12:15 Eosinophils % 1.3 % (0.0-5.0) 07/18/17 12:15 Basophils % 0.7 % (0.0-2.0) 07/18/17 12:15 Sodium 133 mEq/L (136-145) L 07/18/17 12:15 Potassium 4.0 mEq/L (3.5-5.1) 07/18/17 12:15 Chloride 98 mEq/L (98-107) 07/18/17 12:15 Carbon Dioxide 27.8 mEq/L (21.0-31.0) 07/18/17 12:15 Anion Gap 11.2 (7.0-16.0) 07/18/17 12:15 BUN 10 mg/dL (7-25) 07/18/17 12:15 Creatinine 0.6 mg/dL (0.6-1.2) 07/18/17 12:15 Est GFR ( Amer) > 60.0 ml/min (>90) 07/18/17 12:15 Est GFR (Non-Af Amer) > 60.0 ml/min 07/18/17 12:15 BUN/Creatinine Ratio 16.7 07/18/17 12:15 Glucose 128 mg/dL (70-105) H 07/18/17 12:15 POC Glucose 116 MG/DL (70 - 105) H 07/30/17 16:06 Hemoglobin A1c % 6.8 % (4.0-6.0) H 07/18/17 12:15 Calcium 9.2 mg/dL (8.6-10.3) 07/18/17 12:15 Total Bilirubin 0.2 mg/dL (0.3-1.0) L 07/18/17 12:15 AST 12 U/L (13-39) L 07/18/17 12:15 ALT 8 U/L (7-52) 07/18/17 12:15 Alkaline Phosphatase 153 U/L (34-104) H 07/18/17 12:15 Total Protein 6.7 gm/dL (6.0-8.3) 07/18/17 12:15 Albumin 3.7 gm/dL (3.7-5.3) 07/18/17 12:15 Globulin 3.0 gm/dL 07/18/17 12:15 Albumin/Globulin Ratio 1.2 (1.0-1.8) 07/18/17 12:15 Triglycerides 61 mg/dL (<150) 07/18/17 12:15 Cholesterol 207 mg/dL (<200) H 07/18/17 12:15 LDL Cholesterol Direct 127 mg/dL (75-193) 07/18/17 12:15 HDL Cholesterol 61 mg/dL (23-92) 07/18/17 12:15 TSH 2.79 uIU/ml (0.34-5.60) 07/18/17 12:15 Salicylates < 25.0 mg/L (30.0-100.0) L 07/18/17 12:15 Acetaminophen < 10.0 ug/mL (10.0-30.0) L 07/18/17 12:15 Valproic Acid 57.0 ug/mL (50.0-100.0) 08/01/17 12:45 Ethyl Alcohol < 10 mg/dL (0-10) 07/18/17 12:15 RPR NONREACTIVE (NONREACTIVE) 07/18/17 12:15 - Physical Exam Vitals and I&O: Vital Signs Temp 98.2 F 08/09/17 14:00 Pulse 91 08/09/17 14:00 Resp 20 08/09/17 14:00 BP 116/65 08/09/17 14:00 Pulse Ox 98 08/09/17 14:00 Intake & Output 08/09/17 08/09/17 08/10/17 06:59 18:59 06:59 Intake Total 1000 Balance 1000 Intake: Oral 1000 Other: # Voids 5 # Bowel Movements 1 Active Medications: Current Medications Acetaminophen (Tylenol) 650 mg PO Q4HR PRN PRN Reason: Mild Pain / Temp above 100 Stop: 09/16/17 15:39 Al Hydrox/Mg Hydrox/Simethicone (Maalox) 30 ml PO Q4HR PRN PRN Reason: GI DISTRESS Stop: 09/16/17 15:39 Chlorpromazine (Thorazine) 75 mg PO BID [facility] Stop: 10/07/17 11:35 Last Admin: 08/09/17 17:12 Dose: 75 mg Clonazepam (Klonopin) 2 mg PO BID [facility] PRN Reason: Protocol Stop: 09/17/17 08:59 Last Admin: 08/09/17 17:13 Dose: 2 mg Docusate Sodium (Colace) 100 mg PO BID [facility] Stop: 09/17/17 08:59 Last Admin: 08/09/17 17:13 Dose: 100 mg Famotidine (Pepcid) 20 mg PO DAILY [facility] Stop: 09/17/17 08:59 Last Admin: 08/09/17 08:13 Dose: 20 mg Ferrous Sulfate (Iron) 325 mg PO DAILY [facility] Stop: 09/17/17 08:59 Last Admin: 08/09/17 08:13 Dose: 325 mg Haloperidol (Haldol) 5 mg PO BID [facility] PRN Reason: Protocol Stop: 10/08/17 11:32 Last Admin: 08/09/17 17:13 Dose: 5 mg Levothyroxine Sodium (Synthroid) 0.05 mg PO QDAC [facility] Stop: 09/17/17 07:29 Last Admin: 08/09/17 06:43 Dose: 0.05 mg Lorazepam (Ativan) 0.5 mg PO Q4HR PRN; Protocol PRN Reason: Anxiety Stop: 08/17/17 15:39 Last Admin: 08/09/17 12:00 Dose: 0.5 mg Magnesium Hydroxide (Milk Of Magnesia) 30 ml PO DAILY PRN PRN Reason: Constipation Stop: 09/16/17 19:35 Valproate Sodium (Depakene) 500 mg PO BID [facility] PRN Reason: Protocol Stop: 09/17/17 10:59 Last Admin: 08/09/17 17:13 Dose: 500 mg Zolpidem Tartrate (Ambien) 5 mg PO HS PRN PRN Reason: Insomnia Stop: 09/16/17 15:39 Last Admin: 07/30/17 20:20 Dose: 5 mg General: demented HEENT: NC/AT, PERRLA, EOMI, anicteric sclerae, throat clear Neck: Supple, No JVD, No thyromegaly, +2 carotid pulse wo bruit, No LAD Lungs: CTAB Cardiovascular: Normal S1, Normal S2, without murmur Abdomen: non-tender, non-distended Extremities: rash Neurological: no change - Procedures Procedures: Procedures Procedure Code Date INDIVID PSYCHOTHERAP NEC 94.39 06/08/08 OTHER GROUP THERAPY 94.44 06/08/08 Internal Medicine Assmt/Plan - Assessment Assessment: 1.HYPOTHYROIDISM 2.DEMENTIA. - Plan Plan: CONTINUE ON CURRENT MEDICATION AND DIET. Nutritional Asmnt/Malnutr-PDOC - Dietary Evaluation Malnutrition Findings (Please click <Entered> for more info): Nutritional Asmnt/Malnutrition Start: 07/22/17 16: 21 Text: Status: Complete Freq: Document 07/22/17 16:21 ABDIELG (Rec: 07/22/17 16:35 [email or web address] [email or web address]) Nutritional Asmnt/Malnutrition Patient General Information Nutritional Screening Moderate Risk Diagnosis psychosis Pertinent Medical Hx/Surgical Hx hypothyroidism, chronic anemia , chronic constipation, dementia, psychosis Subjective Information Pt seen lying in bed at time of visit, confused. Pt reported good appetite, would like coffee with meal tray. Per EMR PO intake 1005. Current Diet Order/ Nutrition Support regular Pertinent Medications coalce, Iron, synthroid, seroquel Pertinent Labs 07/18 Na 133, glucose 128, A1c 6.8 Nutritional Hx/Data Height 1.6 m Height (Calculated Centimeters) 160.0 Current Weight (lbs) 93.894 kg Weight (Calculated Kilograms) 93.9 Weight (Calculated Grams) 61627.6 [place] Body Weight 115 Body Mass Index (BMI) 36.6 Weight Status Obese GI Symptoms GI Symptoms None Last BM 07/22 Difficult in: None Skin Integrity/Comment: blackened to left dorsal medical foot Current %PO Good (75-100%) Estimated Nutritional Goals BEE in Kcals: Using Current wt Calories/Kcals/Kg 25-30 Kcals Calculated 7168-7339 Protein: Using Current wt Protein g/k Protein Calculated 63 Fluid: ml 1575-1890ml (1ml/kcal) Nutritional Problem No current Nutrition Prob Problem N/A Malnutrition Alert Protein-Calorie Malnutrition N/A Is there a minimum of two criteria No selected? Query Text:Check all the applicable criteria. A minimum of two criteria are recommended for diagnosis of either severe or non-severe malnutrition. Intervention/Recommendation Comments 1. Continue with current diet as ordered. 2. Monitor PO intake, wt, labs and skin integrity 3. F/U as low risk in 7 days, 07/29 Expected Outcomes/Goals Expected Outcomes/Goals 1. PO intake to meet at least 75% of nutritional needs. 2. Wt stability, skin to remain intact, labs to approach WNL.
--- NOTE | 2017-08-10 00:33 | Progress Notes ---
DATE: 08/09/2017 SUBJECTIVE: Case was discussed with staff of the patient and reviewed records. The staff report that actually the patient slept better last night. She tolerated the increase in chlorpromazine to 75 mg twice a day with no side effects, no sedation, no nausea, no extrapyramidal symptoms, and she is currently completely off Seroquel. She is developmentally disabled and unable to make safe plan for self-care or participate in a meaningful conversation. I tried to decrease her Haldol dose and see if that makes a difference because obviously this was not working when she was on it. We still have to give her many injections. No side effects with the medication, no sedation, no nausea, no extrapyramidal symptoms. Still unpredictable, impulsive. Still having difficulty placing her. She is eating better, keeps asking for coffee, with still episodes of yelling and screaming, at times responding to internal stimuli. We will continue to work with the patient in group therapy, milieu therapy, adjust medication as needed. JOB# [id number]
[2017-08-10] MEDS: Levothyroxine 0.05 Mg Tab PO SCH (06:39)
[2017-08-10] MEDS: Multivitamin w/ Minerals Tab PO SCH (08:22)
[2017-08-10] MEDS: Ferrous Sulfate 325 MG TAB PO SCH (08:23)
--- NOTE | 2017-08-10 10:28 | Internal Medicine Prog Note ---
Internal Medicine Subjective - Subjective Service Date: 08/10/17 Patient seen and examined:: with staff (SHE IS DOING BETTER,LESS AGITATED.) Patient is:: verbal, in wheelchair, confused Per staff patient has:: no adverse event (SHE HAS REDNESS OF LEFT SHOLDER SKIN) Internal Medicine Objective - Results Result Diagrams: 07/18/17 12:15 07/18/17 12:15 Recent Labs: Laboratory Last Values WBC 7.4 Th/cmm (4.8-10.8) 07/18/17 12:15 RBC 4.12 Mil/cmm (3.80-5.10) 07/18/17 12:15 Hgb 11.5 gm/dL (12-16) L 07/18/17 12:15 Hct 34.7 % (41.0-60) L 07/18/17 12:15 MCV 84.3 fl (81-100) 07/18/17 12:15 MCH 28.0 pg (27.0-31.0) 07/18/17 12:15 MCHC Differential 33.2 pg (28.0-36.0) 07/18/17 12:15 RDW 15.9 % (11.5-20.0) 07/18/17 12:15 Plt Count 186 Th/cmm (150-400) 07/18/17 12:15 MPV 8.4 fl 07/18/17 12:15 Neutrophils % 61.1 % (40.0-80.0) 07/18/17 12:15 Lymphocytes % 23.7 % (20.0-50.0) 07/18/17 12:15 Monocytes % 13.2 % (2.0-10.0) H 07/18/17 12:15 Eosinophils % 1.3 % (0.0-5.0) 07/18/17 12:15 Basophils % 0.7 % (0.0-2.0) 07/18/17 12:15 Sodium 133 mEq/L (136-145) L 07/18/17 12:15 Potassium 4.0 mEq/L (3.5-5.1) 07/18/17 12:15 Chloride 98 mEq/L (98-107) 07/18/17 12:15 Carbon Dioxide 27.8 mEq/L (21.0-31.0) 07/18/17 12:15 Anion Gap 11.2 (7.0-16.0) 07/18/17 12:15 BUN 10 mg/dL (7-25) 07/18/17 12:15 Creatinine 0.6 mg/dL (0.6-1.2) 07/18/17 12:15 Est GFR ( Amer) > 60.0 ml/min (>90) 07/18/17 12:15 Est GFR (Non-Af Amer) > 60.0 ml/min 07/18/17 12:15 BUN/Creatinine Ratio 16.7 07/18/17 12:15 Glucose 128 mg/dL (70-105) H 07/18/17 12:15 POC Glucose 116 MG/DL (70 - 105) H 07/30/17 16:06 Hemoglobin A1c % 6.8 % (4.0-6.0) H 07/18/17 12:15 Calcium 9.2 mg/dL (8.6-10.3) 07/18/17 12:15 Total Bilirubin 0.2 mg/dL (0.3-1.0) L 07/18/17 12:15 AST 12 U/L (13-39) L 07/18/17 12:15 ALT 8 U/L (7-52) 07/18/17 12:15 Alkaline Phosphatase 153 U/L (34-104) H 07/18/17 12:15 Total Protein 6.7 gm/dL (6.0-8.3) 07/18/17 12:15 Albumin 3.7 gm/dL (3.7-5.3) 07/18/17 12:15 Globulin 3.0 gm/dL 07/18/17 12:15 Albumin/Globulin Ratio 1.2 (1.0-1.8) 07/18/17 12:15 Triglycerides 61 mg/dL (<150) 07/18/17 12:15 Cholesterol 207 mg/dL (<200) H 07/18/17 12:15 LDL Cholesterol Direct 127 mg/dL (75-193) 07/18/17 12:15 HDL Cholesterol 61 mg/dL (23-92) 07/18/17 12:15 TSH 2.79 uIU/ml (0.34-5.60) 07/18/17 12:15 Salicylates < 25.0 mg/L (30.0-100.0) L 07/18/17 12:15 Acetaminophen < 10.0 ug/mL (10.0-30.0) L 07/18/17 12:15 Valproic Acid 57.0 ug/mL (50.0-100.0) 08/01/17 12:45 Ethyl Alcohol < 10 mg/dL (0-10) 07/18/17 12:15 RPR NONREACTIVE (NONREACTIVE) 07/18/17 12:15 - Physical Exam Vitals and I&O: Vital Signs Temp 98 F 08/10/17 06:09 Pulse 100 08/10/17 09:50 Resp 20 08/10/17 09:50 BP 105/62 08/10/17 06:09 Pulse Ox 97 08/10/17 06:09 Intake & Output 08/09/17 08/10/17 08/10/17 18:59 06:59 18:59 Intake Total 1000 240 Balance 1000 240 Intake: Oral 1000 240 Other: # Voids 5 1 # Bowel Movements 1 Stool Characteristics Formed [place] Active Medications: Current Medications Acetaminophen (Tylenol) 650 mg PO Q4HR PRN PRN Reason: Mild Pain / Temp above 100 Stop: 09/16/17 15:39 Al Hydrox/Mg Hydrox/Simethicone (Maalox) 30 ml PO Q4HR PRN PRN Reason: GI DISTRESS Stop: 09/16/17 15:39 Chlorpromazine (Thorazine) 75 mg PO BID [facility] Stop: 10/07/17 11:35 Last Admin: 08/10/17 08:23 Dose: 75 mg Clonazepam (Klonopin) 2 mg PO BID [facility] PRN Reason: Protocol Stop: 09/17/17 08:59 Last Admin: 08/10/17 08:23 Dose: 2 mg Docusate Sodium (Colace) 100 mg PO BID [facility] Stop: 09/17/17 08:59 Last Admin: 08/10/17 08:22 Dose: 100 mg Famotidine (Pepcid) 20 mg PO DAILY [facility] Stop: 09/17/17 08:59 Last Admin: 08/10/17 08:22 Dose: 20 mg Ferrous Sulfate (Iron) 325 mg PO DAILY [facility] Stop: 09/17/17 08:59 Last Admin: 08/10/17 08:23 Dose: 325 mg Haloperidol (Haldol) 5 mg PO BID [facility] PRN Reason: Protocol Stop: 10/08/17 11:32 Last Admin: 08/10/17 08:22 Dose: 5 mg Levothyroxine Sodium (Synthroid) 0.05 mg PO QDAC [facility] Stop: 09/17/17 07:29 Last Admin: 08/10/17 06:39 Dose: 0.05 mg Lorazepam (Ativan) 0.5 mg PO Q4HR PRN; Protocol PRN Reason: Anxiety Stop: 08/17/17 15:39 Last Admin: 08/10/17 01:46 Dose: 0.5 mg Magnesium Hydroxide (Milk Of Magnesia) 30 ml PO DAILY PRN PRN Reason: Constipation Stop: 09/16/17 19:35 Valproate Sodium (Depakene) 500 mg PO BID [facility] PRN Reason: Protocol Stop: 09/17/17 10:59 Last Admin: 08/10/17 08:21 Dose: 500 mg Zolpidem Tartrate (Ambien) 5 mg PO HS PRN PRN Reason: Insomnia Stop: 09/16/17 15:39 Last Admin: 07/30/17 20:20 Dose: 5 mg General: demented HEENT: NC/AT, PERRLA, EOMI, anicteric sclerae, throat clear Neck: Supple, No JVD, No thyromegaly, +2 carotid pulse wo bruit, No LAD Lungs: CTAB Cardiovascular: Normal S1, Normal S2, without murmur Abdomen: non-tender, non-distended Extremities: rash Neurological: no change - Procedures Procedures: Procedures Procedure Code Date INDIVID PSYCHOTHERAP NEC 94.39 06/08/08 OTHER GROUP THERAPY 94.44 06/08/08 Internal Medicine Assmt/Plan - Assessment Assessment: 1.HYPOTHYROIDISM 2.DEMENTIA. 3.PSYCHOSIS - Plan Plan: CONTINUE ON CURRENT MEDICATION AND DIET. Nutritional Asmnt/Malnutr-PDOC - Dietary Evaluation Malnutrition Findings (Please click <Entered> for more info): Nutritional Asmnt/Malnutrition Start: 07/22/17 16: 21 Text: Status: Complete Freq: Document 07/22/17 16:21 FLORY (Rec: 07/22/17 16:35 FLORY [email or web address]) Nutritional Asmnt/Malnutrition Patient General Information Nutritional Screening Moderate Risk Diagnosis psychosis Pertinent Medical Hx/Surgical Hx hypothyroidism, chronic anemia , chronic constipation, dementia, psychosis Subjective Information Pt seen lying in bed at time of visit, confused. Pt reported good appetite, would like coffee with meal tray. Per EMR PO intake 1005. Current Diet Order/ Nutrition Support regular Pertinent Medications coalce, Iron, synthroid, seroquel Pertinent Labs 07/18 Na 133, glucose 128, A1c 6.8 Nutritional Hx/Data Height 1.6 m Height (Calculated Centimeters) 160.0 Current Weight (lbs) 93.894 kg Weight (Calculated Kilograms) 93.9 Weight (Calculated Grams) 35422.6 [place] Body Weight 115 Body Mass Index (BMI) 36.6 Weight Status Obese GI Symptoms GI Symptoms None Last BM 07/22 Difficult in: None Skin Integrity/Comment: blackened to left dorsal medical foot Current %PO Good (75-100%) Estimated Nutritional Goals BEE in Kcals: Using Current wt Calories/Kcals/Kg 25-30 Kcals Calculated 7828-2198 Protein: Using Current wt Protein g/k Protein Calculated 63 Fluid: ml 1575-1890ml (1ml/kcal) Nutritional Problem No current Nutrition Prob Problem N/A Malnutrition Alert Protein-Calorie Malnutrition N/A Is there a minimum of two criteria No selected? Query Text:Check all the applicable criteria. A minimum of two criteria are recommended for diagnosis of either severe or non-severe malnutrition. Intervention/Recommendation Comments 1. Continue with current diet as ordered. 2. Monitor PO intake, wt, labs and skin integrity 3. F/U as low risk in 7 days, 07/29 Expected Outcomes/Goals Expected Outcomes/Goals 1. PO intake to meet at least 75% of nutritional needs. 2. Wt stability, skin to remain intact, labs to approach WNL.
[2017-08-11] MEDS: Levothyroxine 0.05 Mg Tab PO SCH (07:04)
[2017-08-11] MEDS: Multivitamin w/ Minerals Tab PO SCH (08:16)
[2017-08-11] MEDS: Ferrous Sulfate 325 MG TAB PO SCH (08:16)
--- NOTE | 2017-08-11 21:01 | Internal Medicine Prog Note ---
Internal Medicine Subjective - Subjective Service Date: 08/11/17 Patient seen and examined:: with staff Patient is:: verbal, in wheelchair, confused Per staff patient has:: no adverse event (SHE HAS REDNESS OF LEFT SHOLDER SKIN) Internal Medicine Objective - Results Result Diagrams: 07/18/17 12:15 07/18/17 12:15 Recent Labs: Laboratory Last Values WBC 7.4 Th/cmm (4.8-10.8) 07/18/17 12:15 RBC 4.12 Mil/cmm (3.80-5.10) 07/18/17 12:15 Hgb 11.5 gm/dL (12-16) L 07/18/17 12:15 Hct 34.7 % (41.0-60) L 07/18/17 12:15 MCV 84.3 fl (81-100) 07/18/17 12:15 MCH 28.0 pg (27.0-31.0) 07/18/17 12:15 MCHC Differential 33.2 pg (28.0-36.0) 07/18/17 12:15 RDW 15.9 % (11.5-20.0) 07/18/17 12:15 Plt Count 186 Th/cmm (150-400) 07/18/17 12:15 MPV 8.4 fl 07/18/17 12:15 Neutrophils % 61.1 % (40.0-80.0) 07/18/17 12:15 Lymphocytes % 23.7 % (20.0-50.0) 07/18/17 12:15 Monocytes % 13.2 % (2.0-10.0) H 07/18/17 12:15 Eosinophils % 1.3 % (0.0-5.0) 07/18/17 12:15 Basophils % 0.7 % (0.0-2.0) 07/18/17 12:15 Sodium 133 mEq/L (136-145) L 07/18/17 12:15 Potassium 4.0 mEq/L (3.5-5.1) 07/18/17 12:15 Chloride 98 mEq/L (98-107) 07/18/17 12:15 Carbon Dioxide 27.8 mEq/L (21.0-31.0) 07/18/17 12:15 Anion Gap 11.2 (7.0-16.0) 07/18/17 12:15 BUN 10 mg/dL (7-25) 07/18/17 12:15 Creatinine 0.6 mg/dL (0.6-1.2) 07/18/17 12:15 Est GFR ( Amer) > 60.0 ml/min (>90) 07/18/17 12:15 Est GFR (Non-Af Amer) > 60.0 ml/min 07/18/17 12:15 BUN/Creatinine Ratio 16.7 07/18/17 12:15 Glucose 128 mg/dL (70-105) H 07/18/17 12:15 POC Glucose 116 MG/DL (70 - 105) H 07/30/17 16:06 Hemoglobin A1c % 6.8 % (4.0-6.0) H 07/18/17 12:15 Calcium 9.2 mg/dL (8.6-10.3) 07/18/17 12:15 Total Bilirubin 0.2 mg/dL (0.3-1.0) L 07/18/17 12:15 AST 12 U/L (13-39) L 07/18/17 12:15 ALT 8 U/L (7-52) 07/18/17 12:15 Alkaline Phosphatase 153 U/L (34-104) H 07/18/17 12:15 Total Protein 6.7 gm/dL (6.0-8.3) 07/18/17 12:15 Albumin 3.7 gm/dL (3.7-5.3) 07/18/17 12:15 Globulin 3.0 gm/dL 07/18/17 12:15 Albumin/Globulin Ratio 1.2 (1.0-1.8) 07/18/17 12:15 Triglycerides 61 mg/dL (<150) 07/18/17 12:15 Cholesterol 207 mg/dL (<200) H 07/18/17 12:15 LDL Cholesterol Direct 127 mg/dL (75-193) 07/18/17 12:15 HDL Cholesterol 61 mg/dL (23-92) 07/18/17 12:15 TSH 2.79 uIU/ml (0.34-5.60) 07/18/17 12:15 Salicylates < 25.0 mg/L (30.0-100.0) L 07/18/17 12:15 Acetaminophen < 10.0 ug/mL (10.0-30.0) L 07/18/17 12:15 Valproic Acid 57.0 ug/mL (50.0-100.0) 08/01/17 12:45 Ethyl Alcohol < 10 mg/dL (0-10) 07/18/17 12:15 RPR NONREACTIVE (NONREACTIVE) 07/18/17 12:15 - Physical Exam Vitals and I&O: Vital Signs Temp 97.5 F 08/11/17 20:29 Pulse 86 08/11/17 20:29 Resp 18 08/11/17 20:29 BP 92/64 08/11/17 20:29 Pulse Ox 96 08/11/17 20:29 Intake & Output 08/11/17 08/11/17 08/12/17 06:59 18:59 06:59 Intake Total 120 1999 120 Balance 120 1999 120 Intake: Oral 120 1999 120 Other: # Voids 3 3 2 # Bowel Movements 0 1 Stool Characteristics Soft Soft Formed Formed Active Medications: Current Medications Acetaminophen (Tylenol) 650 mg PO Q4HR PRN PRN Reason: Mild Pain / Temp above 100 Stop: 09/16/17 15:39 Al Hydrox/Mg Hydrox/Simethicone (Maalox) 30 ml PO Q4HR PRN PRN Reason: GI DISTRESS Stop: 09/16/17 15:39 Chlorpromazine (Thorazine) 100 mg PO BID [facility] Stop: 10/09/17 10:23 Last Admin: 08/11/17 16:22 Dose: 100 mg Clonazepam (Klonopin) 2 mg PO BID [facility] PRN Reason: Protocol Stop: 09/17/17 08:59 Last Admin: 08/11/17 16:22 Dose: 2 mg Docusate Sodium (Colace) 100 mg PO BID [facility] Stop: 09/17/17 08:59 Last Admin: 08/11/17 16:21 Dose: 100 mg Famotidine (Pepcid) 20 mg PO DAILY [facility] Stop: 09/17/17 08:59 Last Admin: 08/11/17 08:17 Dose: 20 mg Ferrous Sulfate (Iron) 325 mg PO DAILY [facility] Stop: 09/17/17 08:59 Last Admin: 08/11/17 08:16 Dose: 325 mg Haloperidol (Haldol) 5 mg PO BID [facility] PRN Reason: Protocol Stop: 10/08/17 11:32 Last Admin: 08/11/17 16:22 Dose: 5 mg Levothyroxine Sodium (Synthroid) 0.05 mg PO QDAC [facility] Stop: 09/17/17 07:29 Last Admin: 08/11/17 07:04 Dose: 0.05 mg Lorazepam (Ativan) 0.5 mg PO Q4HR PRN; Protocol PRN Reason: Anxiety Stop: 08/17/17 15:39 Last Admin: 08/11/17 12:44 Dose: 0.5 mg Magnesium Hydroxide (Milk Of Magnesia) 30 ml PO DAILY PRN PRN Reason: Constipation Stop: 09/16/17 19:35 Valproate Sodium (Depakene) 500 mg PO BID [facility] PRN Reason: Protocol Stop: 09/17/17 10:59 Last Admin: 08/11/17 16:21 Dose: 500 mg Zolpidem Tartrate (Ambien) 5 mg PO HS PRN PRN Reason: Insomnia Stop: 09/16/17 15:39 Last Admin: 07/30/17 20:20 Dose: 5 mg General: demented HEENT: NC/AT, PERRLA, EOMI, anicteric sclerae, throat clear Neck: Supple, No JVD, No thyromegaly, +2 carotid pulse wo bruit, No LAD Lungs: CTAB Cardiovascular: Normal S1, Normal S2, without murmur Abdomen: non-tender, non-distended Extremities: rash Neurological: no change - Procedures Procedures: Procedures Procedure Code Date INDIVID PSYCHOTHERAP NEC 94.39 06/08/08 OTHER GROUP THERAPY 94.44 06/08/08 Internal Medicine Assmt/Plan - Assessment Assessment: 1.HYPOTHYROIDISM 2.DEMENTIA. 3.PSYCHOSIS - Plan Plan: CONTINUE ON CURRENT MEDICATION AND DIET. Nutritional Asmnt/Malnutr-PDOC - Dietary Evaluation Malnutrition Findings (Please click <Entered> for more info): Nutritional Asmnt/Malnutrition Start: 07/22/17 16: 21 Text: Status: Complete Freq: Document 07/22/17 16:21 FLORY (Rec: 07/22/17 16:35 FLORY [id number]) Nutritional Asmnt/Malnutrition Patient General Information Nutritional Screening Moderate Risk Diagnosis psychosis Pertinent Medical Hx/Surgical Hx hypothyroidism, chronic anemia , chronic constipation, dementia, psychosis Subjective Information Pt seen lying in bed at time of visit, confused. Pt reported good appetite, would like coffee with meal tray. Per EMR PO intake 1005. Current Diet Order/ Nutrition Support regular Pertinent Medications coalce, Iron, synthroid, seroquel Pertinent Labs 07/18 Na 133, glucose 128, A1c 6.8 Nutritional Hx/Data Height 1.6 m Height (Calculated Centimeters) 160.0 Current Weight (lbs) 93.894 kg Weight (Calculated Kilograms) 93.9 Weight (Calculated Grams) 07717.6 [place] Body Weight 115 Body Mass Index (BMI) 36.6 Weight Status Obese GI Symptoms GI Symptoms None Last BM 07/22 Difficult in: None Skin Integrity/Comment: blackened to left dorsal medical foot Current %PO Good (75-100%) Estimated Nutritional Goals BEE in Kcals: Using Current wt Calories/Kcals/Kg 25-30 Kcals Calculated 5747-4152 Protein: Using Current wt Protein g/k Protein Calculated 63 Fluid: ml 1575-1890ml (1ml/kcal) Nutritional Problem No current Nutrition Prob Problem N/A Malnutrition Alert Protein-Calorie Malnutrition N/A Is there a minimum of two criteria No selected? Query Text:Check all the applicable criteria. A minimum of two criteria are recommended for diagnosis of either severe or non-severe malnutrition. Intervention/Recommendation Comments 1. Continue with current diet as ordered. 2. Monitor PO intake, wt, labs and skin integrity 3. F/U as low risk in 7 days, 07/29 Expected Outcomes/Goals Expected Outcomes/Goals 1. PO intake to meet at least 75% of nutritional needs. 2. Wt stability, skin to remain intact, labs to approach WNL.
[2017-08-12] MEDS: Levothyroxine 0.05 Mg Tab PO SCH (06:57)
[2017-08-12] MEDS: Multivitamin w/ Minerals Tab PO SCH (08:17)
[2017-08-12] MEDS: Ferrous Sulfate 325 MG TAB PO SCH (08:17)
--- NOTE | 2017-08-12 10:12 | Progress Notes ---
DATE: 08/11/2017 COVERING FOR: Dr. Hamilton and Dr. Gomez. SUBJECTIVE: The patient is interviewed. Case was discussed with the staff and the chart is reviewed. Per the staff, the patient apparently has been screaming throughout the day impulsively. Her needs have been met but she continues to scream impulsively. She continues to throw stuff including food at the staff and at the koo and at random. The patient apparently has been medication adherent. The patient on today's visit was screaming impulsively. She was unable to answer any questions. She was very labile. She was loud. She was agitated. She was unable to cooperate very much with the interview. ASSESSMENT: This is a 57-year-old female with history of intellectual disability and psychosis. The patient has been agitated, yelling and screaming, throwing food. PLAN: We will continue the patient in acute hospitalization. We will increase the patient's Thorazine to 100 mg b.i.d. We will continue to monitor the patient's behavior and encourage the patient to participate in group and milieu therapy. We will continue to follow the patient's case very closely and work with the educational aide and social service worker for discharge planning. JOB# [id number]
--- NOTE | 2017-08-12 14:01 | Progress Notes ---
DATE: 08/11/[address] Noel Gomez and Dr. Hamilton. SUBJECTIVE: The patient interviewed. Case was discussed with staff and chart reviewed. The patient's Thorazine was increased yesterday. The patient today, seems to be screaming much less. She continues to be irritable. She continues to be labile. She continues to have episodes of loud speech and attention seeking behavior; however, she is much more calm compared to yesterday. MENTAL STATUS EXAMINATION: The patient is an elderly female sitting in her bedside chair. She is labile. She is speaking loudly. She is disorganized. Otherwise, unable to interview due to her poor cooperation. ASSESSMENT: This is a 57-year-old female with history of intellectual disability, psychosis and mood disorder. The patient continues with mood lability, agitation, attention seeking behavior and requires total care. The patient had responded well to increase in Thorazine. PLAN: I will continue medications prescribed. Encourage the patient to verbalize her need and encourage to participate in group and milieu therapy. The patient to work with social service manager and human services case manager for discharge planning and need for any community resources. JOB# [id number]
--- NOTE | 2017-08-12 21:40 | Internal Medicine Prog Note ---
Internal Medicine Subjective - Subjective Service Date: 08/12/17 Patient seen and examined:: with staff (she less agitated.) Patient is:: verbal, in wheelchair, confused Per staff patient has:: no adverse event (SHE HAS REDNESS OF LEFT SHOLDER SKIN) Internal Medicine Objective - Results Result Diagrams: 07/18/17 12:15 07/18/17 12:15 Recent Labs: Laboratory Last Values WBC 7.4 Th/cmm (4.8-10.8) 07/18/17 12:15 RBC 4.12 Mil/cmm (3.80-5.10) 07/18/17 12:15 Hgb 11.5 gm/dL (12-16) L 07/18/17 12:15 Hct 34.7 % (41.0-60) L 07/18/17 12:15 MCV 84.3 fl (81-100) 07/18/17 12:15 MCH 28.0 pg (27.0-31.0) 07/18/17 12:15 MCHC Differential 33.2 pg (28.0-36.0) 07/18/17 12:15 RDW 15.9 % (11.5-20.0) 07/18/17 12:15 Plt Count 186 Th/cmm (150-400) 07/18/17 12:15 MPV 8.4 fl 07/18/17 12:15 Neutrophils % 61.1 % (40.0-80.0) 07/18/17 12:15 Lymphocytes % 23.7 % (20.0-50.0) 07/18/17 12:15 Monocytes % 13.2 % (2.0-10.0) H 07/18/17 12:15 Eosinophils % 1.3 % (0.0-5.0) 07/18/17 12:15 Basophils % 0.7 % (0.0-2.0) 07/18/17 12:15 Sodium 133 mEq/L (136-145) L 07/18/17 12:15 Potassium 4.0 mEq/L (3.5-5.1) 07/18/17 12:15 Chloride 98 mEq/L (98-107) 07/18/17 12:15 Carbon Dioxide 27.8 mEq/L (21.0-31.0) 07/18/17 12:15 Anion Gap 11.2 (7.0-16.0) 07/18/17 12:15 BUN 10 mg/dL (7-25) 07/18/17 12:15 Creatinine 0.6 mg/dL (0.6-1.2) 07/18/17 12:15 Est GFR ( Amer) > 60.0 ml/min (>90) 07/18/17 12:15 Est GFR (Non-Af Amer) > 60.0 ml/min 07/18/17 12:15 BUN/Creatinine Ratio 16.7 07/18/17 12:15 Glucose 128 mg/dL (70-105) H 07/18/17 12:15 POC Glucose 116 MG/DL (70 - 105) H 07/30/17 16:06 Hemoglobin A1c % 6.8 % (4.0-6.0) H 07/18/17 12:15 Calcium 9.2 mg/dL (8.6-10.3) 07/18/17 12:15 Total Bilirubin 0.2 mg/dL (0.3-1.0) L 07/18/17 12:15 AST 12 U/L (13-39) L 07/18/17 12:15 ALT 8 U/L (7-52) 07/18/17 12:15 Alkaline Phosphatase 153 U/L (34-104) H 07/18/17 12:15 Total Protein 6.7 gm/dL (6.0-8.3) 07/18/17 12:15 Albumin 3.7 gm/dL (3.7-5.3) 07/18/17 12:15 Globulin 3.0 gm/dL 07/18/17 12:15 Albumin/Globulin Ratio 1.2 (1.0-1.8) 07/18/17 12:15 Triglycerides 61 mg/dL (<150) 07/18/17 12:15 Cholesterol 207 mg/dL (<200) H 07/18/17 12:15 LDL Cholesterol Direct 127 mg/dL (75-193) 07/18/17 12:15 HDL Cholesterol 61 mg/dL (23-92) 07/18/17 12:15 TSH 2.79 uIU/ml (0.34-5.60) 07/18/17 12:15 Salicylates < 25.0 mg/L (30.0-100.0) L 07/18/17 12:15 Acetaminophen < 10.0 ug/mL (10.0-30.0) L 07/18/17 12:15 Valproic Acid 53.3 ug/mL (50.0-100.0) 08/12/17 13:10 Ethyl Alcohol < 10 mg/dL (0-10) 07/18/17 12:15 RPR NONREACTIVE (NONREACTIVE) 07/18/17 12:15 - Physical Exam Vitals and I&O: Vital Signs Temp 98.5 F 08/12/17 19:59 Pulse 100 08/12/17 19:59 Resp 19 08/12/17 19:59 BP 110/77 08/12/17 19:59 Pulse Ox 96 08/12/17 19:59 Intake & Output 08/12/17 08/12/17 08/13/17 06:59 18:59 06:59 Intake Total 240 1200 240 Balance 240 1200 240 Intake: Oral 240 1200 240 Other: # Voids 2 4 2 # Bowel Movements 1 1 Active Medications: Current Medications Acetaminophen (Tylenol) 650 mg PO Q4HR PRN PRN Reason: Mild Pain / Temp above 100 Stop: 09/16/17 15:39 Al Hydrox/Mg Hydrox/Simethicone (Maalox) 30 ml PO Q4HR PRN PRN Reason: GI DISTRESS Stop: 09/16/17 15:39 Chlorpromazine (Thorazine) 100 mg PO BID [facility] Stop: 10/09/17 10:23 Last Admin: 08/12/17 17:48 Dose: 100 mg Clonazepam (Klonopin) 2 mg PO BID [facility] PRN Reason: Protocol Stop: 09/17/17 08:59 Last Admin: 08/12/17 16:37 Dose: 2 mg Docusate Sodium (Colace) 100 mg PO BID [facility] Stop: 09/17/17 08:59 Last Admin: 08/12/17 16:37 Dose: 100 mg Famotidine (Pepcid) 20 mg PO DAILY [facility] Stop: 09/17/17 08:59 Last Admin: 08/12/17 08:17 Dose: 20 mg Ferrous Sulfate (Iron) 325 mg PO DAILY [facility] Stop: 09/17/17 08:59 Last Admin: 08/12/17 08:17 Dose: 325 mg Haloperidol (Haldol) 5 mg PO HS [facility] PRN Reason: Protocol Stop: 10/11/17 20:59 Last Admin: 08/12/17 21:30 Dose: 5 mg Levothyroxine Sodium (Synthroid) 0.05 mg PO QDAC [facility] Stop: 09/17/17 07:29 Last Admin: 08/12/17 06:57 Dose: 0.05 mg Lorazepam (Ativan) 0.5 mg PO Q4HR PRN; Protocol PRN Reason: Anxiety Stop: 08/17/17 15:39 Last Admin: 08/12/17 21:30 Dose: 0.5 mg Magnesium Hydroxide (Milk Of Magnesia) 30 ml PO DAILY PRN PRN Reason: Constipation Stop: 09/16/17 19:35 Valproate Sodium (Depakene) 500 mg PO BID [facility] PRN Reason: Protocol Stop: 09/17/17 10:59 Last Admin: 08/12/17 16:37 Dose: 500 mg Zolpidem Tartrate (Ambien) 5 mg PO HS PRN PRN Reason: Insomnia Stop: 09/16/17 15:39 Last Admin: 08/12/17 21:30 Dose: 5 mg General: demented HEENT: NC/AT, PERRLA, EOMI, anicteric sclerae, throat clear Neck: Supple, No JVD, No thyromegaly, +2 carotid pulse wo bruit, No LAD Lungs: CTAB Cardiovascular: Normal S1, Normal S2, without murmur Abdomen: non-tender, non-distended Extremities: rash Neurological: no change - Procedures Procedures: Procedures Procedure Code Date INDIVID PSYCHOTHERAP NEC 94.39 06/08/08 OTHER GROUP THERAPY 94.44 06/08/08 Internal Medicine Assmt/Plan - Assessment Assessment: 1.HYPOTHYROIDISM 2.DEMENTIA. 3.PSYCHOSIS - Plan Plan: CONTINUE ON CURRENT MEDICATION AND DIET. Nutritional Asmnt/Malnutr-PDOC - Dietary Evaluation Malnutrition Findings (Please click <Entered> for more info): Nutritional Asmnt/Malnutrition Start: 07/22/17 16: 21 Text: Status: Complete Freq: Document 07/22/17 16:21 FLORY (Rec: 07/22/17 16:35 FLORY [id number]) Nutritional Asmnt/Malnutrition Patient General Information Nutritional Screening Moderate Risk Diagnosis psychosis Pertinent Medical Hx/Surgical Hx hypothyroidism, chronic anemia , chronic constipation, dementia, psychosis Subjective Information Pt seen lying in bed at time of visit, confused. Pt reported good appetite, would like coffee with meal tray. Per EMR PO intake 1005. Current Diet Order/ Nutrition Support regular Pertinent Medications coalce, Iron, synthroid, seroquel Pertinent Labs 07/18 Na 133, glucose 128, A1c 6.8 Nutritional Hx/Data Height 1.6 m Height (Calculated Centimeters) 160.0 Current Weight (lbs) 93.894 kg Weight (Calculated Kilograms) 93.9 Weight (Calculated Grams) 92701.6 [place] Body Weight 115 Body Mass Index (BMI) 36.6 Weight Status Obese GI Symptoms GI Symptoms None Last BM 07/22 Difficult in: None Skin Integrity/Comment: blackened to left dorsal medical foot Current %PO Good (75-100%) Estimated Nutritional Goals BEE in Kcals: Using Current wt Calories/Kcals/Kg 25-30 Kcals Calculated 4341-4154 Protein: Using Current wt Protein g/k Protein Calculated 63 Fluid: ml 1575-1890ml (1ml/kcal) Nutritional Problem No current Nutrition Prob Problem N/A Malnutrition Alert Protein-Calorie Malnutrition N/A Is there a minimum of two criteria No selected? Query Text:Check all the applicable criteria. A minimum of two criteria are recommended for diagnosis of either severe or non-severe malnutrition. Intervention/Recommendation Comments 1. Continue with current diet as ordered. 2. Monitor PO intake, wt, labs and skin integrity 3. F/U as low risk in 7 days, 07/29 Expected Outcomes/Goals Expected Outcomes/Goals 1. PO intake to meet at least 75% of nutritional needs. 2. Wt stability, skin to remain intact, labs to approach WNL.
--- NOTE | 2017-08-12 23:37 | Progress Notes ---
DATE: 08/12/2017 SUBJECTIVE: Case discussed with staff of the patient's, reviewed records. The patient continues to have episodes of yelling and screaming. Continues to be unpredictable and impulsive. The patient is on a Ibeth chair. She is a high risk because she gets sedated. She gets many injections. She has unstable gait. The patient was still waiting on placement. The patient is unpredictable and impulsive. She continues to have episodes of yelling and screaming. Dr. Gomez increased her Largactil over the weekend to 100 mg twice a day and I did decrease the Haldol to 5 mg twice a day and not be decreasing it further to only 1 at bedtime as I do not think it is helping her much. However, we will see if there is any difference. MEDICATIONS: Reviewed and it is like before, the only difference is the increase in chlorpromazine to 100 mg twice a day and we will be getting a Depakote level on her and we will continue outpatient group therapy, milieu therapy, and adjust the medications as needed. JOB# [id number]
[2017-08-13] MEDS: Levothyroxine 0.05 Mg Tab PO SCH (06:43)
[2017-08-13] MEDS: Multivitamin w/ Minerals Tab PO SCH (08:38)
[2017-08-13] MEDS: Ferrous Sulfate 325 MG TAB PO SCH (08:39)
--- NOTE | 2017-08-13 16:06 | Progress Notes ---
DATE: 08/13/2017 Case discussed with staff of the patient ____, but there has been no change in her behavior since I decreased the Haldol. She still has episodes of yelling and screaming at times. No more, no less. She is still unpredictable and impulsive, yelling for coffee all the time, having poor insight. Working on placement apparently, it has been very hard to place her. She is on a waiting list for one place, but they started applying to other places. We do not expect her behavior to improve much and I will be discontinuing the Haldol completely, keep her on the larger chlorpromazine only, as that is only thing that usually help her and she is a high fall risk. She is always in a wheelchair. We will continue outpatient group therapy, milieu therapy, and adjust medications as needed. JOB# [id number]
--- NOTE | 2017-08-13 21:59 | Internal Medicine Prog Note ---
Internal Medicine Subjective - Subjective Service Date: 08/13/17 Patient seen and examined:: with staff (SHE IS EATING BETTER AND LESS AGITATED) Patient is:: verbal, in wheelchair, confused Per staff patient has:: no adverse event (SHE HAS REDNESS OF LEFT SHOLDER SKIN) Internal Medicine Objective - Results Result Diagrams: 07/18/17 12:15 07/18/17 12:15 Recent Labs: Laboratory Last Values WBC 7.4 Th/cmm (4.8-10.8) 07/18/17 12:15 RBC 4.12 Mil/cmm (3.80-5.10) 07/18/17 12:15 Hgb 11.5 gm/dL (12-16) L 07/18/17 12:15 Hct 34.7 % (41.0-60) L 07/18/17 12:15 MCV 84.3 fl (81-100) 07/18/17 12:15 MCH 28.0 pg (27.0-31.0) 07/18/17 12:15 MCHC Differential 33.2 pg (28.0-36.0) 07/18/17 12:15 RDW 15.9 % (11.5-20.0) 07/18/17 12:15 Plt Count 186 Th/cmm (150-400) 07/18/17 12:15 MPV 8.4 fl 07/18/17 12:15 Neutrophils % 61.1 % (40.0-80.0) 07/18/17 12:15 Lymphocytes % 23.7 % (20.0-50.0) 07/18/17 12:15 Monocytes % 13.2 % (2.0-10.0) H 07/18/17 12:15 Eosinophils % 1.3 % (0.0-5.0) 07/18/17 12:15 Basophils % 0.7 % (0.0-2.0) 07/18/17 12:15 Sodium 133 mEq/L (136-145) L 07/18/17 12:15 Potassium 4.0 mEq/L (3.5-5.1) 07/18/17 12:15 Chloride 98 mEq/L (98-107) 07/18/17 12:15 Carbon Dioxide 27.8 mEq/L (21.0-31.0) 07/18/17 12:15 Anion Gap 11.2 (7.0-16.0) 07/18/17 12:15 BUN 10 mg/dL (7-25) 07/18/17 12:15 Creatinine 0.6 mg/dL (0.6-1.2) 07/18/17 12:15 Est GFR ( Amer) > 60.0 ml/min (>90) 07/18/17 12:15 Est GFR (Non-Af Amer) > 60.0 ml/min 07/18/17 12:15 BUN/Creatinine Ratio 16.7 07/18/17 12:15 Glucose 128 mg/dL (70-105) H 07/18/17 12:15 POC Glucose 116 MG/DL (70 - 105) H 07/30/17 16:06 Hemoglobin A1c % 6.8 % (4.0-6.0) H 07/18/17 12:15 Calcium 9.2 mg/dL (8.6-10.3) 07/18/17 12:15 Total Bilirubin 0.2 mg/dL (0.3-1.0) L 07/18/17 12:15 AST 12 U/L (13-39) L 07/18/17 12:15 ALT 8 U/L (7-52) 07/18/17 12:15 Alkaline Phosphatase 153 U/L (34-104) H 07/18/17 12:15 Total Protein 6.7 gm/dL (6.0-8.3) 07/18/17 12:15 Albumin 3.7 gm/dL (3.7-5.3) 07/18/17 12:15 Globulin 3.0 gm/dL 07/18/17 12:15 Albumin/Globulin Ratio 1.2 (1.0-1.8) 07/18/17 12:15 Triglycerides 61 mg/dL (<150) 07/18/17 12:15 Cholesterol 207 mg/dL (<200) H 07/18/17 12:15 LDL Cholesterol Direct 127 mg/dL (75-193) 07/18/17 12:15 HDL Cholesterol 61 mg/dL (23-92) 07/18/17 12:15 TSH 2.79 uIU/ml (0.34-5.60) 07/18/17 12:15 Salicylates < 25.0 mg/L (30.0-100.0) L 07/18/17 12:15 Acetaminophen < 10.0 ug/mL (10.0-30.0) L 07/18/17 12:15 Valproic Acid 53.3 ug/mL (50.0-100.0) 08/12/17 13:10 Ethyl Alcohol < 10 mg/dL (0-10) 07/18/17 12:15 RPR NONREACTIVE (NONREACTIVE) 07/18/17 12:15 - Physical Exam Vitals and I&O: Vital Signs Temp 98.5 F 08/13/17 21:03 Pulse 85 08/13/17 21:03 Resp 19 08/13/17 21:03 BP 117/72 08/13/17 21:03 Pulse Ox 96 08/13/17 21:03 Intake & Output 08/13/17 08/13/17 08/14/17 06:59 18:59 06:59 Intake Total 420 240 Output Total 1 Balance 420 239 Intake: Oral 420 240 Output: Stool 1 Other: # Voids 2 1 # Bowel Movements 1 Active Medications: Current Medications Acetaminophen (Tylenol) 650 mg PO Q4HR PRN PRN Reason: Mild Pain / Temp above 100 Stop: 09/16/17 15:39 Al Hydrox/Mg Hydrox/Simethicone (Maalox) 30 ml PO Q4HR PRN PRN Reason: GI DISTRESS Stop: 09/16/17 15:39 Chlorpromazine (Thorazine) 100 mg PO BID [facility] Stop: 10/09/17 10:23 Last Admin: 08/13/17 17:03 Dose: 100 mg Clonazepam (Klonopin) 2 mg PO BID [facility] PRN Reason: Protocol Stop: 09/17/17 08:59 Last Admin: 08/13/17 17:03 Dose: 2 mg Docusate Sodium (Colace) 100 mg PO BID [facility] Stop: 09/17/17 08:59 Last Admin: 08/13/17 17:03 Dose: 100 mg Famotidine (Pepcid) 20 mg PO DAILY [facility] Stop: 09/17/17 08:59 Last Admin: 08/13/17 08:37 Dose: 20 mg Ferrous Sulfate (Iron) 325 mg PO DAILY [facility] Stop: 09/17/17 08:59 Last Admin: 08/13/17 08:39 Dose: 325 mg Levothyroxine Sodium (Synthroid) 0.05 mg PO QDAC [facility] Stop: 09/17/17 07:29 Last Admin: 08/13/17 06:43 Dose: 0.05 mg Lorazepam (Ativan) 0.5 mg PO Q4HR PRN; Protocol PRN Reason: Anxiety Stop: 08/17/17 15:39 Last Admin: 08/13/17 20:52 Dose: 0.5 mg Magnesium Hydroxide (Milk Of Magnesia) 30 ml PO DAILY PRN PRN Reason: Constipation Stop: 09/16/17 19:35 Valproate Sodium (Depakene) 500 mg PO BID [facility] PRN Reason: Protocol Stop: 09/17/17 10:59 Last Admin: 08/13/17 17:02 Dose: 500 mg Zolpidem Tartrate (Ambien) 5 mg PO HS PRN PRN Reason: Insomnia Stop: 09/16/17 15:39 Last Admin: 08/13/17 20:52 Dose: 5 mg General: demented HEENT: NC/AT, PERRLA, EOMI, anicteric sclerae, throat clear Neck: Supple, No JVD, No thyromegaly, +2 carotid pulse wo bruit, No LAD Lungs: CTAB Cardiovascular: Normal S1, Normal S2, without murmur Abdomen: non-tender, non-distended Extremities: rash Neurological: no change - Procedures Procedures: Procedures Procedure Code Date INDIVID PSYCHOTHERAP NEC 94.39 06/08/08 OTHER GROUP THERAPY 94.44 06/08/08 Internal Medicine Assmt/Plan - Assessment Assessment: 1.HYPOTHYROIDISM 2.DEMENTIA. 3.PSYCHOSIS - Plan Plan: CONTINUE ON CURRENT MEDICATION AND DIET. Nutritional Asmnt/Malnutr-PDOC - Dietary Evaluation Malnutrition Findings (Please click <Entered> for more info): Nutritional Asmnt/Malnutrition Start: 07/22/17 16: 21 Text: Status: Complete Freq: Document 07/22/17 16:21 ABDIELG (Rec: 07/22/17 16:35 [email or web address]) Nutritional Asmnt/Malnutrition Patient General Information Nutritional Screening Moderate Risk Diagnosis psychosis Pertinent Medical Hx/Surgical Hx hypothyroidism, chronic anemia , chronic constipation, dementia, psychosis Subjective Information Pt seen lying in bed at time of visit, confused. Pt reported good appetite, would like coffee with meal tray. Per EMR PO intake 1005. Current Diet Order/ Nutrition Support regular Pertinent Medications coalce, Iron, synthroid, seroquel Pertinent Labs 07/18 Na 133, glucose 128, A1c 6.8 Nutritional Hx/Data Height 1.6 m Height (Calculated Centimeters) 160.0 Current Weight (lbs) 93.894 kg Weight (Calculated Kilograms) 93.9 Weight (Calculated Grams) 34289.6 [place] Body Weight 115 Body Mass Index (BMI) 36.6 Weight Status Obese GI Symptoms GI Symptoms None Last BM 07/22 Difficult in: None Skin Integrity/Comment: blackened to left dorsal medical foot Current %PO Good (75-100%) Estimated Nutritional Goals BEE in Kcals: Using Current wt Calories/Kcals/Kg 25-30 Kcals Calculated 9637-3445 Protein: Using Current wt Protein g/k Protein Calculated 63 Fluid: ml 1575-1890ml (1ml/kcal) Nutritional Problem No current Nutrition Prob Problem N/A Malnutrition Alert Protein-Calorie Malnutrition N/A Is there a minimum of two criteria No selected? Query Text:Check all the applicable criteria. A minimum of two criteria are recommended for diagnosis of either severe or non-severe malnutrition. Intervention/Recommendation Comments 1. Continue with current diet as ordered. 2. Monitor PO intake, wt, labs and skin integrity 3. F/U as low risk in 7 days, 07/29 Expected Outcomes/Goals Expected Outcomes/Goals 1. PO intake to meet at least 75% of nutritional needs. 2. Wt stability, skin to remain intact, labs to approach WNL.
[2017-08-14] MEDS: Levothyroxine 0.05 Mg Tab PO SCH (06:36)
[2017-08-14] MEDS: Multivitamin w/ Minerals Tab PO SCH (08:49)
[2017-08-14] MEDS: Ferrous Sulfate 325 MG TAB PO SCH (08:49)
--- NOTE | 2017-08-14 12:15 | Progress Notes ---
DATE: 08/14/2017 Case was discussed with staff of the patient, reviewed records. The staff reports she is not yelling as much. She herself is a poor historian. She is developmentally disabled. She continues to be yelling and screaming at times, though the staff reports that has not been as much since the increase in the chlorpromazine dose and I also took her off the Haldol and Seroquel, so basically now she is only taking 1 antipsychotic. No side effects with the medication, no sedation, no nausea, no extrapyramidal symptoms. I did ask for her Depakote level to be checked, also working on placement. Her lab work showed low hemoglobin, low hematocrit, high monocyte, and the rest was within normal range. Her chemistry panel showed low sodium, high blood sugar, high hemoglobin A1c with total bilirubin, low AST, and the rest was within normal range. We will continue to work with the patient in group therapy, milieu therapy, adjust the medication as needed, and working on placement. JOB# [id number]
--- NOTE | 2017-08-14 20:45 | Internal Medicine Prog Note ---
Internal Medicine Subjective - Subjective Service Date: 08/14/17 Patient seen and examined:: with staff (SHE IS CONFUSED) Patient is:: verbal, in wheelchair, confused Per staff patient has:: no adverse event (SHE HAS REDNESS OF LEFT SHOLDER SKIN) Internal Medicine Objective - Results Result Diagrams: 07/18/17 12:15 07/18/17 12:15 Recent Labs: Laboratory Last Values WBC 7.4 Th/cmm (4.8-10.8) 07/18/17 12:15 RBC 4.12 Mil/cmm (3.80-5.10) 07/18/17 12:15 Hgb 11.5 gm/dL (12-16) L 07/18/17 12:15 Hct 34.7 % (41.0-60) L 07/18/17 12:15 MCV 84.3 fl (81-100) 07/18/17 12:15 MCH 28.0 pg (27.0-31.0) 07/18/17 12:15 MCHC Differential 33.2 pg (28.0-36.0) 07/18/17 12:15 RDW 15.9 % (11.5-20.0) 07/18/17 12:15 Plt Count 186 Th/cmm (150-400) 07/18/17 12:15 MPV 8.4 fl 07/18/17 12:15 Neutrophils % 61.1 % (40.0-80.0) 07/18/17 12:15 Lymphocytes % 23.7 % (20.0-50.0) 07/18/17 12:15 Monocytes % 13.2 % (2.0-10.0) H 07/18/17 12:15 Eosinophils % 1.3 % (0.0-5.0) 07/18/17 12:15 Basophils % 0.7 % (0.0-2.0) 07/18/17 12:15 Sodium 133 mEq/L (136-145) L 07/18/17 12:15 Potassium 4.0 mEq/L (3.5-5.1) 07/18/17 12:15 Chloride 98 mEq/L (98-107) 07/18/17 12:15 Carbon Dioxide 27.8 mEq/L (21.0-31.0) 07/18/17 12:15 Anion Gap 11.2 (7.0-16.0) 07/18/17 12:15 BUN 10 mg/dL (7-25) 07/18/17 12:15 Creatinine 0.6 mg/dL (0.6-1.2) 07/18/17 12:15 Est GFR ( Amer) > 60.0 ml/min (>90) 07/18/17 12:15 Est GFR (Non-Af Amer) > 60.0 ml/min 07/18/17 12:15 BUN/Creatinine Ratio 16.7 07/18/17 12:15 Glucose 128 mg/dL (70-105) H 07/18/17 12:15 POC Glucose 116 MG/DL (70 - 105) H 07/30/17 16:06 Hemoglobin A1c % 6.8 % (4.0-6.0) H 07/18/17 12:15 Calcium 9.2 mg/dL (8.6-10.3) 07/18/17 12:15 Total Bilirubin 0.2 mg/dL (0.3-1.0) L 07/18/17 12:15 AST 12 U/L (13-39) L 07/18/17 12:15 ALT 8 U/L (7-52) 07/18/17 12:15 Alkaline Phosphatase 153 U/L (34-104) H 07/18/17 12:15 Total Protein 6.7 gm/dL (6.0-8.3) 07/18/17 12:15 Albumin 3.7 gm/dL (3.7-5.3) 07/18/17 12:15 Globulin 3.0 gm/dL 07/18/17 12:15 Albumin/Globulin Ratio 1.2 (1.0-1.8) 07/18/17 12:15 Triglycerides 61 mg/dL (<150) 07/18/17 12:15 Cholesterol 207 mg/dL (<200) H 07/18/17 12:15 LDL Cholesterol Direct 127 mg/dL (75-193) 07/18/17 12:15 HDL Cholesterol 61 mg/dL (23-92) 07/18/17 12:15 TSH 2.79 uIU/ml (0.34-5.60) 07/18/17 12:15 Salicylates < 25.0 mg/L (30.0-100.0) L 07/18/17 12:15 Acetaminophen < 10.0 ug/mL (10.0-30.0) L 07/18/17 12:15 Valproic Acid 53.3 ug/mL (50.0-100.0) 08/12/17 13:10 Ethyl Alcohol < 10 mg/dL (0-10) 07/18/17 12:15 RPR NONREACTIVE (NONREACTIVE) 07/18/17 12:15 - Physical Exam Vitals and I&O: Vital Signs Temp 98.4 F 08/14/17 19:52 Pulse 101 08/14/17 19:52 Resp 20 08/14/17 19:52 BP 118/73 08/14/17 19:52 Pulse Ox 98 08/14/17 19:52 Intake & Output 08/14/17 08/14/17 08/15/17 06:59 18:59 06:59 Intake Total 360 1000 Output Total 1 Balance 359 1000 Intake: Oral 360 1000 Output: Stool 1 Other: # Voids 2 3 # Bowel Movements 1 1 Active Medications: Current Medications Acetaminophen (Tylenol) 650 mg PO Q4HR PRN PRN Reason: Mild Pain / Temp above 100 Stop: 09/16/17 15:39 Al Hydrox/Mg Hydrox/Simethicone (Maalox) 30 ml PO Q4HR PRN PRN Reason: GI DISTRESS Stop: 09/16/17 15:39 Chlorpromazine (Thorazine) 100 mg PO BID [facility] Stop: 10/09/17 10:23 Last Admin: 08/14/17 16:39 Dose: 100 mg Clonazepam (Klonopin) 2 mg PO BID [facility] PRN Reason: Protocol Stop: 09/17/17 08:59 Last Admin: 08/14/17 16:28 Dose: 2 mg Docusate Sodium (Colace) 100 mg PO BID [facility] Stop: 09/17/17 08:59 Last Admin: 08/14/17 16:28 Dose: 100 mg Famotidine (Pepcid) 20 mg PO DAILY [facility] Stop: 09/17/17 08:59 Last Admin: 08/14/17 08:48 Dose: 20 mg Ferrous Sulfate (Iron) 325 mg PO DAILY [facility] Stop: 09/17/17 08:59 Last Admin: 08/14/17 08:49 Dose: 325 mg Levothyroxine Sodium (Synthroid) 0.05 mg PO QDAC [facility] Stop: 09/17/17 07:29 Last Admin: 08/14/17 06:36 Dose: 0.05 mg Lorazepam (Ativan) 0.5 mg PO Q4HR PRN; Protocol PRN Reason: Anxiety Stop: 08/17/17 15:39 Last Admin: 08/13/17 20:52 Dose: 0.5 mg Magnesium Hydroxide (Milk Of Magnesia) 30 ml PO DAILY PRN PRN Reason: Constipation Stop: 09/16/17 19:35 Valproate Sodium (Depakene) 500 mg PO BID [facility] PRN Reason: Protocol Stop: 09/17/17 10:59 Last Admin: 08/14/17 16:46 Dose: 500 mg Zolpidem Tartrate (Ambien) 5 mg PO HS PRN PRN Reason: Insomnia Stop: 09/16/17 15:39 Last Admin: 08/13/17 20:52 Dose: 5 mg General: demented HEENT: NC/AT, PERRLA, EOMI, anicteric sclerae, throat clear Neck: Supple, No JVD, No thyromegaly, +2 carotid pulse wo bruit, No LAD Lungs: CTAB Cardiovascular: Normal S1, Normal S2, without murmur Abdomen: non-tender, non-distended Extremities: rash Neurological: no change - Procedures Procedures: Procedures Procedure Code Date INDIVID PSYCHOTHERAP NEC 94.39 06/08/08 OTHER GROUP THERAPY 94.44 06/08/08 Internal Medicine Assmt/Plan - Assessment Assessment: 1.HYPOTHYROIDISM 2.DEMENTIA. 3.PSYCHOSIS - Plan Plan: CONTINUE ON CURRENT MEDICATION AND DIET. Nutritional Asmnt/Malnutr-PDOC - Dietary Evaluation Malnutrition Findings (Please click <Entered> for more info): Nutritional Asmnt/Malnutrition Start: 07/22/17 16: 21 Text: Status: Complete Freq: Document 07/22/17 16:21 ABDIEL (Rec: 07/22/17 16:35 FLORYG [email or web address]) Nutritional Asmnt/Malnutrition Patient General Information Nutritional Screening Moderate Risk Diagnosis psychosis Pertinent Medical Hx/Surgical Hx hypothyroidism, chronic anemia , chronic constipation, dementia, psychosis Subjective Information Pt seen lying in bed at time of visit, confused. Pt reported good appetite, would like coffee with meal tray. Per EMR PO intake 1005. Current Diet Order/ Nutrition Support regular Pertinent Medications coalce, Iron, synthroid, seroquel Pertinent Labs 07/18 Na 133, glucose 128, A1c 6.8 Nutritional Hx/Data Height 1.6 m Height (Calculated Centimeters) 160.0 Current Weight (lbs) 93.894 kg Weight (Calculated Kilograms) 93.9 Weight (Calculated Grams) 89294.6 [place] Body Weight 115 Body Mass Index (BMI) 36.6 Weight Status Obese GI Symptoms GI Symptoms None Last BM 07/22 Difficult in: None Skin Integrity/Comment: blackened to left dorsal medical foot Current %PO Good (75-100%) Estimated Nutritional Goals BEE in Kcals: Using Current wt Calories/Kcals/Kg 25-30 Kcals Calculated 7185-9831 Protein: Using Current wt Protein g/k Protein Calculated 63 Fluid: ml 1575-1890ml (1ml/kcal) Nutritional Problem No current Nutrition Prob Problem N/A Malnutrition Alert Protein-Calorie Malnutrition N/A Is there a minimum of two criteria No selected? Query Text:Check all the applicable criteria. A minimum of two criteria are recommended for diagnosis of either severe or non-severe malnutrition. Intervention/Recommendation Comments 1. Continue with current diet as ordered. 2. Monitor PO intake, wt, labs and skin integrity 3. F/U as low risk in 7 days, 07/29 Expected Outcomes/Goals Expected Outcomes/Goals 1. PO intake to meet at least 75% of nutritional needs. 2. Wt stability, skin to remain intact, labs to approach WNL.
[2017-08-15] MEDS: Levothyroxine 0.05 Mg Tab PO SCH (06:34)
[2017-08-15] MEDS: Ferrous Sulfate 325 MG TAB PO SCH (09:37)
[2017-08-15] MEDS: Multivitamin w/ Minerals Tab PO SCH (09:37)
--- NOTE | 2017-08-15 21:17 | Progress Notes ---
DATE: 08/15/2017 SUBJECTIVE: Case was discussed with staff of the patient, reviewed records. The patient continues to have episodes of feeling of screaming, but nothing out of the ____ she always done that. She is asking for coffee. She is sleeping better. She is eating well. She is still unpredictable, impulsive with episodes of yelling and screaming. She is doing well without the Haldol and the Seroquel. Lab work reviewed again and Depakote level is 57, which is within acceptable therapeutic range and RPR is nonreactive. No side effects to the medication, no sedation, no nausea, and no extrapyramidal symptoms. We will continue to work with the patient in group therapy, milieu therapy, and adjust the medications as needed. JOB# [id number]
--- NOTE | 2017-08-15 21:59 | Internal Medicine Prog Note ---
Internal Medicine Subjective - Subjective Service Date: 08/15/17 Patient seen and examined:: with staff Patient is:: verbal, in wheelchair, confused Per staff patient has:: no adverse event (SHE HAS REDNESS OF LEFT SHOLDER SKIN) Internal Medicine Objective - Results Result Diagrams: 07/18/17 12:15 07/18/17 12:15 Recent Labs: Laboratory Last Values WBC 7.4 Th/cmm (4.8-10.8) 07/18/17 12:15 RBC 4.12 Mil/cmm (3.80-5.10) 07/18/17 12:15 Hgb 11.5 gm/dL (12-16) L 07/18/17 12:15 Hct 34.7 % (41.0-60) L 07/18/17 12:15 MCV 84.3 fl (81-100) 07/18/17 12:15 MCH 28.0 pg (27.0-31.0) 07/18/17 12:15 MCHC Differential 33.2 pg (28.0-36.0) 07/18/17 12:15 RDW 15.9 % (11.5-20.0) 07/18/17 12:15 Plt Count 186 Th/cmm (150-400) 07/18/17 12:15 MPV 8.4 fl 07/18/17 12:15 Neutrophils % 61.1 % (40.0-80.0) 07/18/17 12:15 Lymphocytes % 23.7 % (20.0-50.0) 07/18/17 12:15 Monocytes % 13.2 % (2.0-10.0) H 07/18/17 12:15 Eosinophils % 1.3 % (0.0-5.0) 07/18/17 12:15 Basophils % 0.7 % (0.0-2.0) 07/18/17 12:15 Sodium 133 mEq/L (136-145) L 07/18/17 12:15 Potassium 4.0 mEq/L (3.5-5.1) 07/18/17 12:15 Chloride 98 mEq/L (98-107) 07/18/17 12:15 Carbon Dioxide 27.8 mEq/L (21.0-31.0) 07/18/17 12:15 Anion Gap 11.2 (7.0-16.0) 07/18/17 12:15 BUN 10 mg/dL (7-25) 07/18/17 12:15 Creatinine 0.6 mg/dL (0.6-1.2) 07/18/17 12:15 Est GFR ( Amer) > 60.0 ml/min (>90) 07/18/17 12:15 Est GFR (Non-Af Amer) > 60.0 ml/min 07/18/17 12:15 BUN/Creatinine Ratio 16.7 07/18/17 12:15 Glucose 128 mg/dL (70-105) H 07/18/17 12:15 POC Glucose 116 MG/DL (70 - 105) H 07/30/17 16:06 Hemoglobin A1c % 6.8 % (4.0-6.0) H 07/18/17 12:15 Calcium 9.2 mg/dL (8.6-10.3) 07/18/17 12:15 Total Bilirubin 0.2 mg/dL (0.3-1.0) L 07/18/17 12:15 AST 12 U/L (13-39) L 07/18/17 12:15 ALT 8 U/L (7-52) 07/18/17 12:15 Alkaline Phosphatase 153 U/L (34-104) H 07/18/17 12:15 Total Protein 6.7 gm/dL (6.0-8.3) 07/18/17 12:15 Albumin 3.7 gm/dL (3.7-5.3) 07/18/17 12:15 Globulin 3.0 gm/dL 07/18/17 12:15 Albumin/Globulin Ratio 1.2 (1.0-1.8) 07/18/17 12:15 Triglycerides 61 mg/dL (<150) 07/18/17 12:15 Cholesterol 207 mg/dL (<200) H 07/18/17 12:15 LDL Cholesterol Direct 127 mg/dL (75-193) 07/18/17 12:15 HDL Cholesterol 61 mg/dL (23-92) 07/18/17 12:15 TSH 2.79 uIU/ml (0.34-5.60) 07/18/17 12:15 Salicylates < 25.0 mg/L (30.0-100.0) L 07/18/17 12:15 Acetaminophen < 10.0 ug/mL (10.0-30.0) L 07/18/17 12:15 Valproic Acid 53.3 ug/mL (50.0-100.0) 08/12/17 13:10 Ethyl Alcohol < 10 mg/dL (0-10) 07/18/17 12:15 RPR NONREACTIVE (NONREACTIVE) 07/18/17 12:15 - Physical Exam Vitals and I&O: Vital Signs Temp 98.2 F 08/15/17 20:00 Pulse 78 08/15/17 20:00 Resp 18 08/15/17 20:00 BP 116/76 08/15/17 20:00 Pulse Ox 97 08/15/17 20:00 Intake & Output 08/15/17 08/15/17 08/16/17 06:59 18:59 06:59 Intake Total 120 1200 Balance 120 1200 Intake: Oral 120 1200 Other: # Voids 3 3 # Bowel Movements 0 Active Medications: Current Medications Acetaminophen (Tylenol) 650 mg PO Q4HR PRN PRN Reason: Mild Pain / Temp above 100 Stop: 09/16/17 15:39 Al Hydrox/Mg Hydrox/Simethicone (Maalox) 30 ml PO Q4HR PRN PRN Reason: GI DISTRESS Stop: 09/16/17 15:39 Chlorpromazine (Thorazine) 100 mg PO BID [facility] Stop: 10/09/17 10:23 Last Admin: 08/15/17 16:58 Dose: 100 mg Clonazepam (Klonopin) 2 mg PO BID [facility] PRN Reason: Protocol Stop: 09/17/17 08:59 Last Admin: 08/15/17 16:58 Dose: 2 mg Docusate Sodium (Colace) 100 mg PO BID [facility] Stop: 09/17/17 08:59 Last Admin: 08/15/17 16:58 Dose: 100 mg Famotidine (Pepcid) 20 mg PO DAILY [facility] Stop: 09/17/17 08:59 Last Admin: 08/15/17 09:37 Dose: 20 mg Ferrous Sulfate (Iron) 325 mg PO DAILY [facility] Stop: 09/17/17 08:59 Last Admin: 08/15/17 09:37 Dose: 325 mg Levothyroxine Sodium (Synthroid) 0.05 mg PO QDAC [facility] Stop: 09/17/17 07:29 Last Admin: 08/15/17 06:34 Dose: 0.05 mg Lorazepam (Ativan) 0.5 mg PO Q4HR PRN; Protocol PRN Reason: Anxiety Stop: 08/17/17 15:39 Last Admin: 08/15/17 21:45 Dose: 0.5 mg Magnesium Hydroxide (Milk Of Magnesia) 30 ml PO DAILY PRN PRN Reason: Constipation Stop: 09/16/17 19:35 Valproate Sodium (Depakene) 500 mg PO BID [facility] PRN Reason: Protocol Stop: 09/17/17 10:59 Last Admin: 08/15/17 16:58 Dose: 500 mg Zolpidem Tartrate (Ambien) 5 mg PO HS PRN PRN Reason: Insomnia Stop: 09/16/17 15:39 Last Admin: 08/15/17 21:45 Dose: 5 mg General: demented HEENT: NC/AT, PERRLA, EOMI, anicteric sclerae, throat clear Neck: Supple, No JVD, No thyromegaly, +2 carotid pulse wo bruit, No LAD Lungs: CTAB Cardiovascular: Normal S1, Normal S2, without murmur Abdomen: non-tender, non-distended Extremities: rash Neurological: no change - Procedures Procedures: Procedures Procedure Code Date INDIVID PSYCHOTHERAP NEC 94.39 06/08/08 OTHER GROUP THERAPY 94.44 06/08/08 Internal Medicine Assmt/Plan - Assessment Assessment: 1.HYPOTHYROIDISM 2.DEMENTIA. 3.PSYCHOSIS - Plan Plan: CONTINUE ON CURRENT MEDICATION AND DIET. Nutritional Asmnt/Malnutr-PDOC - Dietary Evaluation Malnutrition Findings (Please click <Entered> for more info): Nutritional Asmnt/Malnutrition Start: 07/22/17 16: 21 Text: Status: Complete Freq: Document 07/22/17 16:21 TAYA (Rec: 07/22/17 16:35 TAYA [email or web address]) Nutritional Asmnt/Malnutrition Patient General Information Nutritional Screening Moderate Risk Diagnosis psychosis Pertinent Medical Hx/Surgical Hx hypothyroidism, chronic anemia , chronic constipation, dementia, psychosis Subjective Information Pt seen lying in bed at time of visit, confused. Pt reported good appetite, would like coffee with meal tray. Per EMR PO intake 1005. Current Diet Order/ Nutrition Support regular Pertinent Medications coalce, Iron, synthroid, seroquel Pertinent Labs 07/18 Na 133, glucose 128, A1c 6.8 Nutritional Hx/Data Height 1.6 m Height (Calculated Centimeters) 160.0 Current Weight (lbs) 93.894 kg Weight (Calculated Kilograms) 93.9 Weight (Calculated Grams) 75779.6 [place] Body Weight 115 Body Mass Index (BMI) 36.6 Weight Status Obese GI Symptoms GI Symptoms None Last BM 07/22 Difficult in: None Skin Integrity/Comment: blackened to left dorsal medical foot Current %PO Good (75-100%) Estimated Nutritional Goals BEE in Kcals: Using Current wt Calories/Kcals/Kg 25-30 Kcals Calculated 4078-9284 Protein: Using Current wt Protein g/k Protein Calculated 63 Fluid: ml 1575-1890ml (1ml/kcal) Nutritional Problem No current Nutrition Prob Problem N/A Malnutrition Alert Protein-Calorie Malnutrition N/A Is there a minimum of two criteria No selected? Query Text:Check all the applicable criteria. A minimum of two criteria are recommended for diagnosis of either severe or non-severe malnutrition. Intervention/Recommendation Comments 1. Continue with current diet as ordered. 2. Monitor PO intake, wt, labs and skin integrity 3. F/U as low risk in 7 days, 07/29 Expected Outcomes/Goals Expected Outcomes/Goals 1. PO intake to meet at least 75% of nutritional needs. 2. Wt stability, skin to remain intact, labs to approach WNL.
[2017-08-16] MEDS: Levothyroxine 0.05 Mg Tab PO SCH (06:52)
[2017-08-16] MEDS: Multivitamin w/ Minerals Tab PO SCH (08:18)
[2017-08-16] MEDS: Ferrous Sulfate 325 MG TAB PO SCH (08:18)
--- NOTE | 2017-08-16 19:32 | Internal Medicine Prog Note ---
Internal Medicine Subjective - Subjective Service Date: 08/16/17 Patient seen and examined:: with staff (SHE STILL CONFUSED) Patient is:: verbal, in wheelchair, confused Per staff patient has:: no adverse event (SHE HAS REDNESS OF LEFT SHOLDER SKIN) Internal Medicine Objective - Results Result Diagrams: 07/18/17 12:15 07/18/17 12:15 Recent Labs: Laboratory Last Values WBC 7.4 Th/cmm (4.8-10.8) 07/18/17 12:15 RBC 4.12 Mil/cmm (3.80-5.10) 07/18/17 12:15 Hgb 11.5 gm/dL (12-16) L 07/18/17 12:15 Hct 34.7 % (41.0-60) L 07/18/17 12:15 MCV 84.3 fl (81-100) 07/18/17 12:15 MCH 28.0 pg (27.0-31.0) 07/18/17 12:15 MCHC Differential 33.2 pg (28.0-36.0) 07/18/17 12:15 RDW 15.9 % (11.5-20.0) 07/18/17 12:15 Plt Count 186 Th/cmm (150-400) 07/18/17 12:15 MPV 8.4 fl 07/18/17 12:15 Neutrophils % 61.1 % (40.0-80.0) 07/18/17 12:15 Lymphocytes % 23.7 % (20.0-50.0) 07/18/17 12:15 Monocytes % 13.2 % (2.0-10.0) H 07/18/17 12:15 Eosinophils % 1.3 % (0.0-5.0) 07/18/17 12:15 Basophils % 0.7 % (0.0-2.0) 07/18/17 12:15 Sodium 133 mEq/L (136-145) L 07/18/17 12:15 Potassium 4.0 mEq/L (3.5-5.1) 07/18/17 12:15 Chloride 98 mEq/L (98-107) 07/18/17 12:15 Carbon Dioxide 27.8 mEq/L (21.0-31.0) 07/18/17 12:15 Anion Gap 11.2 (7.0-16.0) 07/18/17 12:15 BUN 10 mg/dL (7-25) 07/18/17 12:15 Creatinine 0.6 mg/dL (0.6-1.2) 07/18/17 12:15 Est GFR ( Amer) > 60.0 ml/min (>90) 07/18/17 12:15 Est GFR (Non-Af Amer) > 60.0 ml/min 07/18/17 12:15 BUN/Creatinine Ratio 16.7 07/18/17 12:15 Glucose 128 mg/dL (70-105) H 07/18/17 12:15 POC Glucose 116 MG/DL (70 - 105) H 07/30/17 16:06 Hemoglobin A1c % 6.8 % (4.0-6.0) H 07/18/17 12:15 Calcium 9.2 mg/dL (8.6-10.3) 07/18/17 12:15 Total Bilirubin 0.2 mg/dL (0.3-1.0) L 07/18/17 12:15 AST 12 U/L (13-39) L 07/18/17 12:15 ALT 8 U/L (7-52) 07/18/17 12:15 Alkaline Phosphatase 153 U/L (34-104) H 07/18/17 12:15 Total Protein 6.7 gm/dL (6.0-8.3) 07/18/17 12:15 Albumin 3.7 gm/dL (3.7-5.3) 07/18/17 12:15 Globulin 3.0 gm/dL 07/18/17 12:15 Albumin/Globulin Ratio 1.2 (1.0-1.8) 07/18/17 12:15 Triglycerides 61 mg/dL (<150) 07/18/17 12:15 Cholesterol 207 mg/dL (<200) H 07/18/17 12:15 LDL Cholesterol Direct 127 mg/dL (75-193) 07/18/17 12:15 HDL Cholesterol 61 mg/dL (23-92) 07/18/17 12:15 TSH 2.79 uIU/ml (0.34-5.60) 07/18/17 12:15 Salicylates < 25.0 mg/L (30.0-100.0) L 07/18/17 12:15 Acetaminophen < 10.0 ug/mL (10.0-30.0) L 07/18/17 12:15 Valproic Acid 53.3 ug/mL (50.0-100.0) 08/12/17 13:10 Ethyl Alcohol < 10 mg/dL (0-10) 07/18/17 12:15 RPR NONREACTIVE (NONREACTIVE) 07/18/17 12:15 - Physical Exam Vitals and I&O: Vital Signs Temp 98.4 F 08/16/17 14:00 Pulse 90 08/16/17 14:00 Resp 20 08/16/17 14:00 BP 132/64 08/16/17 14:00 Pulse Ox 97 08/16/17 14:00 Intake & Output 08/16/17 08/16/17 08/17/17 06:59 18:59 06:59 Intake Total 1320 1200 Balance 1320 1200 Intake: Oral 1320 1200 Other: # Voids 3 # Bowel Movements 0 Active Medications: Current Medications Acetaminophen (Tylenol) 650 mg PO Q4HR PRN PRN Reason: Mild Pain / Temp above 100 Stop: 09/16/17 15:39 Al Hydrox/Mg Hydrox/Simethicone (Maalox) 30 ml PO Q4HR PRN PRN Reason: GI DISTRESS Stop: 09/16/17 15:39 Chlorpromazine (Thorazine) 100 mg PO BID [facility] Stop: 10/09/17 10:23 Last Admin: 08/16/17 16:22 Dose: 100 mg Clonazepam (Klonopin) 2 mg PO BID [facility] PRN Reason: Protocol Stop: 09/17/17 08:59 Last Admin: 08/16/17 16:22 Dose: 2 mg Docusate Sodium (Colace) 100 mg PO BID [facility] Stop: 09/17/17 08:59 Last Admin: 08/16/17 16:22 Dose: 100 mg Famotidine (Pepcid) 20 mg PO DAILY [facility] Stop: 09/17/17 08:59 Last Admin: 08/16/17 08:18 Dose: 20 mg Ferrous Sulfate (Iron) 325 mg PO DAILY [facility] Stop: 09/17/17 08:59 Last Admin: 08/16/17 08:18 Dose: 325 mg Levothyroxine Sodium (Synthroid) 0.05 mg PO QDAC [facility] Stop: 09/17/17 07:29 Last Admin: 08/16/17 06:52 Dose: 0.05 mg Lorazepam (Ativan) 0.5 mg PO Q4HR PRN; Protocol PRN Reason: Anxiety Stop: 08/17/17 15:39 Last Admin: 08/16/17 08:19 Dose: 0.5 mg Magnesium Hydroxide (Milk Of Magnesia) 30 ml PO DAILY PRN PRN Reason: Constipation Stop: 09/16/17 19:35 Valproate Sodium (Depakene) 500 mg PO BID [facility] PRN Reason: Protocol Stop: 09/17/17 10:59 Last Admin: 08/16/17 16:28 Dose: 500 mg Zolpidem Tartrate (Ambien) 5 mg PO HS PRN PRN Reason: Insomnia Stop: 09/16/17 15:39 Last Admin: 08/15/17 21:45 Dose: 5 mg General: demented HEENT: NC/AT, PERRLA, EOMI, anicteric sclerae, throat clear Neck: Supple, No JVD, No thyromegaly, +2 carotid pulse wo bruit, No LAD Lungs: CTAB Cardiovascular: Normal S1, Normal S2, without murmur Abdomen: non-tender, non-distended Extremities: rash Neurological: no change - Procedures Procedures: Procedures Procedure Code Date INDIVID PSYCHOTHERAP NEC 94.39 06/08/08 OTHER GROUP THERAPY 94.44 06/08/08 Internal Medicine Assmt/Plan - Assessment Assessment: 1.HYPOTHYROIDISM 2.DEMENTIA. 3.PSYCHOSIS - Plan Plan: CONTINUE ON CURRENT MEDICATION AND DIET. Nutritional Asmnt/Malnutr-PDOC - Dietary Evaluation Malnutrition Findings (Please click <Entered> for more info): Nutritional Asmnt/Malnutrition Start: 07/22/17 16: 21 Text: Status: Complete Freq: Document 07/22/17 16:21 TAYA (Rec: 07/22/17 16:35 TAYA [email or web address]) Nutritional Asmnt/Malnutrition Patient General Information Nutritional Screening Moderate Risk Diagnosis psychosis Pertinent Medical Hx/Surgical Hx hypothyroidism, chronic anemia , chronic constipation, dementia, psychosis Subjective Information Pt seen lying in bed at time of visit, confused. Pt reported good appetite, would like coffee with meal tray. Per EMR PO intake 1005. Current Diet Order/ Nutrition Support regular Pertinent Medications coalce, Iron, synthroid, seroquel Pertinent Labs 07/18 Na 133, glucose 128, A1c 6.8 Nutritional Hx/Data Height 1.6 m Height (Calculated Centimeters) 160.0 Current Weight (lbs) 93.894 kg Weight (Calculated Kilograms) 93.9 Weight (Calculated Grams) 68378.6 [place] Body Weight 115 Body Mass Index (BMI) 36.6 Weight Status Obese GI Symptoms GI Symptoms None Last BM 07/22 Difficult in: None Skin Integrity/Comment: blackened to left dorsal medical foot Current %PO Good (75-100%) Estimated Nutritional Goals BEE in Kcals: Using Current wt Calories/Kcals/Kg 25-30 Kcals Calculated 4473-7584 Protein: Using Current wt Protein g/k Protein Calculated 63 Fluid: ml 1575-1890ml (1ml/kcal) Nutritional Problem No current Nutrition Prob Problem N/A Malnutrition Alert Protein-Calorie Malnutrition N/A Is there a minimum of two criteria No selected? Query Text:Check all the applicable criteria. A minimum of two criteria are recommended for diagnosis of either severe or non-severe malnutrition. Intervention/Recommendation Comments 1. Continue with current diet as ordered. 2. Monitor PO intake, wt, labs and skin integrity 3. F/U as low risk in 7 days, 07/29 Expected Outcomes/Goals Expected Outcomes/Goals 1. PO intake to meet at least 75% of nutritional needs. 2. Wt stability, skin to remain intact, labs to approach WNL.
--- NOTE | 2017-08-16 23:57 | Progress Notes ---
DATE: 08/16/2017 Case discussed with staff of the patient, reviewed records. The patient continues to do the same, waiting on placement for her. She is sleeping well, eating well. Continues to have episodes of agitation, irritability, yelling and screaming. Continues to have poor insight, unable to participate in meaningful conversation, make safe plan for self-care. When I tried talk to her, she will ask for coffee. No side effects of the medication, no sedation, no nausea, no extrapyramidal symptoms and currently only on chlorpromazine 100 mg twice a day and we will continue to work with the patient in group therapy, milieu therapy, and adjust the medications as needed. [facility]# [id number]
[2017-08-17] MEDS: Levothyroxine 0.05 Mg Tab PO SCH (06:44)
[2017-08-17] MEDS ORDERED: chlorproMAZINE 25 mg/mL 2mL Amp ONE (07:11)
[2017-08-17] MEDS ORDERED: chlorproMAZINE 25 mg/mL 2mL Amp IM ONE (07:12)
[2017-08-17] MEDS: Ferrous Sulfate 325 MG TAB PO SCH (08:11)
[2017-08-17] MEDS: Multivitamin w/ Minerals Tab PO SCH (08:12)
--- NOTE | 2017-08-17 17:19 | General Progress Note ---
Subjective - Review of Systems Service Date: 08/17/17 Subjective: resting comfortably no distress Objective - Results Result Diagrams: 07/18/17 12:15 07/18/17 12:15 Recent Labs: Laboratory Last Values WBC 7.4 Th/cmm (4.8-10.8) 07/18/17 12:15 RBC 4.12 Mil/cmm (3.80-5.10) 07/18/17 12:15 Hgb 11.5 gm/dL (12-16) L 07/18/17 12:15 Hct 34.7 % (41.0-60) L 07/18/17 12:15 MCV 84.3 fl (81-100) 07/18/17 12:15 MCH 28.0 pg (27.0-31.0) 07/18/17 12:15 MCHC Differential 33.2 pg (28.0-36.0) 07/18/17 12:15 RDW 15.9 % (11.5-20.0) 07/18/17 12:15 Plt Count 186 Th/cmm (150-400) 07/18/17 12:15 MPV 8.4 fl 07/18/17 12:15 Neutrophils % 61.1 % (40.0-80.0) 07/18/17 12:15 Lymphocytes % 23.7 % (20.0-50.0) 07/18/17 12:15 Monocytes % 13.2 % (2.0-10.0) H 07/18/17 12:15 Eosinophils % 1.3 % (0.0-5.0) 07/18/17 12:15 Basophils % 0.7 % (0.0-2.0) 07/18/17 12:15 Sodium 133 mEq/L (136-145) L 07/18/17 12:15 Potassium 4.0 mEq/L (3.5-5.1) 07/18/17 12:15 Chloride 98 mEq/L (98-107) 07/18/17 12:15 Carbon Dioxide 27.8 mEq/L (21.0-31.0) 07/18/17 12:15 Anion Gap 11.2 (7.0-16.0) 07/18/17 12:15 BUN 10 mg/dL (7-25) 07/18/17 12:15 Creatinine 0.6 mg/dL (0.6-1.2) 07/18/17 12:15 Est GFR ( Amer) > 60.0 ml/min (>90) 07/18/17 12:15 Est GFR (Non-Af Amer) > 60.0 ml/min 07/18/17 12:15 BUN/Creatinine Ratio 16.7 07/18/17 12:15 Glucose 128 mg/dL (70-105) H 07/18/17 12:15 POC Glucose 116 MG/DL (70 - 105) H 07/30/17 16:06 Hemoglobin A1c % 6.8 % (4.0-6.0) H 07/18/17 12:15 Calcium 9.2 mg/dL (8.6-10.3) 07/18/17 12:15 Total Bilirubin 0.2 mg/dL (0.3-1.0) L 07/18/17 12:15 AST 12 U/L (13-39) L 07/18/17 12:15 ALT 8 U/L (7-52) 07/18/17 12:15 Alkaline Phosphatase 153 U/L (34-104) H 07/18/17 12:15 Total Protein 6.7 gm/dL (6.0-8.3) 07/18/17 12:15 Albumin 3.7 gm/dL (3.7-5.3) 07/18/17 12:15 Globulin 3.0 gm/dL 07/18/17 12:15 Albumin/Globulin Ratio 1.2 (1.0-1.8) 07/18/17 12:15 Triglycerides 61 mg/dL (<150) 07/18/17 12:15 Cholesterol 207 mg/dL (<200) H 07/18/17 12:15 LDL Cholesterol Direct 127 mg/dL (75-193) 07/18/17 12:15 HDL Cholesterol 61 mg/dL (23-92) 07/18/17 12:15 TSH 2.79 uIU/ml (0.34-5.60) 07/18/17 12:15 Salicylates < 25.0 mg/L (30.0-100.0) L 07/18/17 12:15 Acetaminophen < 10.0 ug/mL (10.0-30.0) L 07/18/17 12:15 Valproic Acid 53.3 ug/mL (50.0-100.0) 08/12/17 13:10 Ethyl Alcohol < 10 mg/dL (0-10) 07/18/17 12:15 RPR NONREACTIVE (NONREACTIVE) 07/18/17 12:15 - Physical Exam Vitals and I&O: Vital Signs Temp 97.0 F 08/17/17 14:40 Pulse 78 08/17/17 14:40 Resp 19 08/17/17 14:40 BP 143/83 08/17/17 14:40 Pulse Ox 97 08/17/17 14:40 Intake & Output 08/16/17 08/17/17 08/17/17 18:59 06:59 18:59 Intake Total 1200 1300 Output Total 4 Balance 1200 1296 Intake: Oral 1200 1300 Output: Urine 3 Stool 1 Active Medications: Current Medications Acetaminophen (Tylenol) 650 mg PO Q4HR PRN PRN Reason: Mild Pain / Temp above 100 Stop: 09/16/17 15:39 Al Hydrox/Mg Hydrox/Simethicone (Maalox) 30 ml PO Q4HR PRN PRN Reason: GI DISTRESS Stop: 09/16/17 15:39 Chlorpromazine (Thorazine) 100 mg PO TID [facility] PRN Reason: Protocol Stop: 10/16/17 13:59 Last Admin: 08/17/17 13:22 Dose: 100 mg Clonazepam (Klonopin) 2 mg PO BID [facility] PRN Reason: Protocol Stop: 09/17/17 08:59 Last Admin: 08/17/17 16:13 Dose: 2 mg Docusate Sodium (Colace) 100 mg PO BID [facility] Stop: 09/17/17 08:59 Last Admin: 08/17/17 16:13 Dose: 100 mg Famotidine (Pepcid) 20 mg PO DAILY [facility] Stop: 09/17/17 08:59 Last Admin: 08/17/17 08:11 Dose: 20 mg Ferrous Sulfate (Iron) 325 mg PO DAILY [facility] Stop: 09/17/17 08:59 Last Admin: 08/17/17 08:11 Dose: 325 mg Levothyroxine Sodium (Synthroid) 0.05 mg PO QDAC [facility] Stop: 09/17/17 07:29 Last Admin: 08/17/17 06:44 Dose: 0.05 mg Magnesium Hydroxide (Milk Of Magnesia) 30 ml PO DAILY PRN PRN Reason: Constipation Stop: 09/16/17 19:35 Valproate Sodium (Depakene) 500 mg PO BID [facility] PRN Reason: Protocol Stop: 09/17/17 10:59 Last Admin: 08/17/17 16:12 Dose: 500 mg Zolpidem Tartrate (Ambien) 5 mg PO HS PRN PRN Reason: Insomnia Stop: 09/16/17 15:39 Last Admin: 08/16/17 21:02 Dose: 5 mg General: Alert, Cooperative HEENT: Atraumatic, PERRLA Neck: Supple, JVD Cardiovascular: Regular rate, Normal S1, Normal S2 Lungs: Clear to auscultation Abdomen: Bowel sounds, Soft - Procedures Procedures: Procedures Procedure Code Date INDIVID PSYCHOTHERAP NEC 94.39 06/08/08 OTHER GROUP THERAPY 94.44 06/08/08 Assessment/Plan - Problem List Patient Problems: All Active Problems AGITATION AND STRIKING OUT, DISRUPTIVE (Acute) - Assessment Assessment: 1.CHRONIC ANEMIA 2.HYPOTHYROIDISM 3.DEMENTIA. - Plan Plan: CONT CURRENT TREATMENT Nutritional Asmnt/Malnutr-PDOC - Dietary Evaluation Malnutrition Findings (Please click <Entered> for more info): Nutritional Asmnt/Malnutrition Start: 07/22/17 16: 21 Text: Status: Complete Freq: Document 07/22/17 16:21 FLORY (Rec: 07/22/17 16:35 FLORYG [email or web address]) Nutritional Asmnt/Malnutrition Patient General Information Nutritional Screening Moderate Risk Diagnosis psychosis Pertinent Medical Hx/Surgical Hx hypothyroidism, chronic anemia , chronic constipation, dementia, psychosis Subjective Information Pt seen lying in bed at time of visit, confused. Pt reported good appetite, would like coffee with meal tray. Per EMR PO intake 1005. Current Diet Order/ Nutrition Support regular Pertinent Medications coalce, Iron, synthroid, seroquel Pertinent Labs 07/18 Na 133, glucose 128, A1c 6.8 Nutritional Hx/Data Height 1.6 m Height (Calculated Centimeters) 160.0 Current Weight (lbs) 93.894 kg Weight (Calculated Kilograms) 93.9 Weight (Calculated Grams) 15144.6 [place] Body Weight 115 Body Mass Index (BMI) 36.6 Weight Status Obese GI Symptoms GI Symptoms None Last BM 07/22 Difficult in: None Skin Integrity/Comment: blackened to left dorsal medical foot Current %PO Good (75-100%) Estimated Nutritional Goals BEE in Kcals: Using Current wt Calories/Kcals/Kg 25-30 Kcals Calculated 8568-1172 Protein: Using Current wt Protein g/k Protein Calculated 63 Fluid: ml 1575-1890ml (1ml/kcal) Nutritional Problem No current Nutrition Prob Problem N/A Malnutrition Alert Protein-Calorie Malnutrition N/A Is there a minimum of two criteria No selected? Query Text:Check all the applicable criteria. A minimum of two criteria are recommended for diagnosis of either severe or non-severe malnutrition. Intervention/Recommendation Comments 1. Continue with current diet as ordered. 2. Monitor PO intake, wt, labs and skin integrity 3. F/U as low risk in 7 days, 07/29 Expected Outcomes/Goals Expected Outcomes/Goals 1. PO intake to meet at least 75% of nutritional needs. 2. Wt stability, skin to remain intact, labs to approach WNL.
--- NOTE | 2017-08-17 18:12 | Progress Notes ---
DATE: 08/17/2017 SUBJECTIVE: The patient was seen and evaluated. The patient's chart reviewed. I discussed in great detail with the patient, staff members. Staff reported that the patient continued to be agitated, aggressive, urging, required Thorazine IM earlier in the morning by Dr. Gomez. She presented very aggressive and assaultive responding heavily to on [id number] evaluation. Today, responding very heavily, irritable, agitated, when I tried to talk to her, she becomes more angry and starts attempting to hurt. MENTAL STATUS ASSESSMENT: Psychotic, responding heavily resulting in agitated and aggressive behavior. CURRENT MEDICATIONS: She is on Clozaril 100 mg p.o. b.i.d., levothyroxine, lorazepam as needed, Depakote 500 p.o. b.i.d. ASSESSMENT AND PLAN: A 57-year-old female to be psychotic, disorganized. We will continue increasing Thorazine at 100 mg p.o. t.i.d. to reduce the risk of needing emergent medications again later on in the afternoon to the patient's active psychotic symptoms resulting in aggressive behavior. We will continue with the current medication regimen . JOB# [id number]
[2017-08-18] MEDS: Levothyroxine 0.05 Mg Tab PO SCH (06:34)
[2017-08-18] MEDS: Multivitamin w/ Minerals Tab PO SCH (08:05)
[2017-08-18] MEDS: Ferrous Sulfate 325 MG TAB PO SCH (08:05)
--- NOTE | 2017-08-18 18:56 | General Progress Note ---
Subjective - Review of Systems Service Date: 08/18/17 Subjective: resting comfortably no distress Objective - Results Result Diagrams: 07/18/17 12:15 07/18/17 12:15 Recent Labs: Laboratory Last Values WBC 7.4 Th/cmm (4.8-10.8) 07/18/17 12:15 RBC 4.12 Mil/cmm (3.80-5.10) 07/18/17 12:15 Hgb 11.5 gm/dL (12-16) L 07/18/17 12:15 Hct 34.7 % (41.0-60) L 07/18/17 12:15 MCV 84.3 fl (81-100) 07/18/17 12:15 MCH 28.0 pg (27.0-31.0) 07/18/17 12:15 MCHC Differential 33.2 pg (28.0-36.0) 07/18/17 12:15 RDW 15.9 % (11.5-20.0) 07/18/17 12:15 Plt Count 186 Th/cmm (150-400) 07/18/17 12:15 MPV 8.4 fl 07/18/17 12:15 Neutrophils % 61.1 % (40.0-80.0) 07/18/17 12:15 Lymphocytes % 23.7 % (20.0-50.0) 07/18/17 12:15 Monocytes % 13.2 % (2.0-10.0) H 07/18/17 12:15 Eosinophils % 1.3 % (0.0-5.0) 07/18/17 12:15 Basophils % 0.7 % (0.0-2.0) 07/18/17 12:15 Sodium 133 mEq/L (136-145) L 07/18/17 12:15 Potassium 4.0 mEq/L (3.5-5.1) 07/18/17 12:15 Chloride 98 mEq/L (98-107) 07/18/17 12:15 Carbon Dioxide 27.8 mEq/L (21.0-31.0) 07/18/17 12:15 Anion Gap 11.2 (7.0-16.0) 07/18/17 12:15 BUN 10 mg/dL (7-25) 07/18/17 12:15 Creatinine 0.6 mg/dL (0.6-1.2) 07/18/17 12:15 Est GFR ( Amer) > 60.0 ml/min (>90) 07/18/17 12:15 Est GFR (Non-Af Amer) > 60.0 ml/min 07/18/17 12:15 BUN/Creatinine Ratio 16.7 07/18/17 12:15 Glucose 128 mg/dL (70-105) H 07/18/17 12:15 POC Glucose 116 MG/DL (70 - 105) H 07/30/17 16:06 Hemoglobin A1c % 6.8 % (4.0-6.0) H 07/18/17 12:15 Calcium 9.2 mg/dL (8.6-10.3) 07/18/17 12:15 Total Bilirubin 0.2 mg/dL (0.3-1.0) L 07/18/17 12:15 AST 12 U/L (13-39) L 07/18/17 12:15 ALT 8 U/L (7-52) 07/18/17 12:15 Alkaline Phosphatase 153 U/L (34-104) H 07/18/17 12:15 Total Protein 6.7 gm/dL (6.0-8.3) 07/18/17 12:15 Albumin 3.7 gm/dL (3.7-5.3) 07/18/17 12:15 Globulin 3.0 gm/dL 07/18/17 12:15 Albumin/Globulin Ratio 1.2 (1.0-1.8) 07/18/17 12:15 Triglycerides 61 mg/dL (<150) 07/18/17 12:15 Cholesterol 207 mg/dL (<200) H 07/18/17 12:15 LDL Cholesterol Direct 127 mg/dL (75-193) 07/18/17 12:15 HDL Cholesterol 61 mg/dL (23-92) 07/18/17 12:15 TSH 2.79 uIU/ml (0.34-5.60) 07/18/17 12:15 Salicylates < 25.0 mg/L (30.0-100.0) L 07/18/17 12:15 Acetaminophen < 10.0 ug/mL (10.0-30.0) L 07/18/17 12:15 Valproic Acid 53.3 ug/mL (50.0-100.0) 08/12/17 13:10 Ethyl Alcohol < 10 mg/dL (0-10) 07/18/17 12:15 RPR NONREACTIVE (NONREACTIVE) 07/18/17 12:15 - Physical Exam Vitals and I&O: Vital Signs Temp 97.6 F 08/18/17 15:37 Pulse 91 08/18/17 15:37 Resp 18 08/18/17 15:37 BP 101/70 08/18/17 15:37 Pulse Ox 98 08/18/17 15:37 Intake & Output 08/17/17 08/18/17 08/18/17 18:59 06:59 18:59 Intake Total 1300 480 900 Output Total 4 Balance 1296 480 900 Intake: Oral 1300 480 900 Output: Urine 3 Stool 1 Other: # Voids 1 3 # Bowel Movements 1 Active Medications: Current Medications Acetaminophen (Tylenol) 650 mg PO Q4HR PRN PRN Reason: Mild Pain / Temp above 100 Stop: 09/16/17 15:39 Al Hydrox/Mg Hydrox/Simethicone (Maalox) 30 ml PO Q4HR PRN PRN Reason: GI DISTRESS Stop: 09/16/17 15:39 Chlorpromazine (Thorazine) 100 mg PO TID [facility] PRN Reason: Protocol Stop: 10/16/17 13:59 Last Admin: 08/18/17 13:05 Dose: 100 mg Clonazepam (Klonopin) 2 mg PO BID [facility] PRN Reason: Protocol Stop: 09/17/17 08:59 Last Admin: 08/18/17 16:22 Dose: 2 mg Docusate Sodium (Colace) 100 mg PO BID [facility] Stop: 09/17/17 08:59 Last Admin: 08/18/17 16:23 Dose: 100 mg Famotidine (Pepcid) 20 mg PO DAILY [facility] Stop: 09/17/17 08:59 Last Admin: 08/18/17 08:05 Dose: 20 mg Ferrous Sulfate (Iron) 325 mg PO DAILY [facility] Stop: 09/17/17 08:59 Last Admin: 08/18/17 08:05 Dose: 325 mg Levothyroxine Sodium (Synthroid) 0.05 mg PO QDAC [facility] Stop: 09/17/17 07:29 Last Admin: 08/18/17 06:34 Dose: 0.05 mg Magnesium Hydroxide (Milk Of Magnesia) 30 ml PO DAILY PRN PRN Reason: Constipation Stop: 09/16/17 19:35 Valproate Sodium (Depakene) 500 mg PO BID [facility] PRN Reason: Protocol Stop: 09/17/17 10:59 Last Admin: 08/18/17 16:22 Dose: 500 mg Zolpidem Tartrate (Ambien) 5 mg PO HS PRN PRN Reason: Insomnia Stop: 09/16/17 15:39 Last Admin: 08/17/17 20:32 Dose: 5 mg General: Alert, Cooperative HEENT: Atraumatic, PERRLA Neck: Supple, JVD Cardiovascular: Regular rate, Normal S1, Normal S2 Lungs: Clear to auscultation Abdomen: Bowel sounds, Soft - Procedures Procedures: Procedures Procedure Code Date INDIVID PSYCHOTHERAP NEC 94.39 06/08/08 OTHER GROUP THERAPY 94.44 06/08/08 Assessment/Plan - Problem List Patient Problems: All Active Problems AGITATION AND STRIKING OUT, DISRUPTIVE (Acute) - Assessment Assessment: 1.CHRONIC ANEMIA 2.HYPOTHYROIDISM 3.DEMENTIA. - Plan Plan: CONT CURRENT TREATMENT Nutritional Asmnt/Malnutr-PDOC - Dietary Evaluation Malnutrition Findings (Please click <Entered> for more info): Nutritional Asmnt/Malnutrition Start: 07/22/17 16: 21 Text: Status: Complete Freq: Document 07/22/17 16:21 LCHENG (Rec: 07/22/17 16:35 LCHENG [email or web address]) Nutritional Asmnt/Malnutrition Patient General Information Nutritional Screening Moderate Risk Diagnosis psychosis Pertinent Medical Hx/Surgical Hx hypothyroidism, chronic anemia , chronic constipation, dementia, psychosis Subjective Information Pt seen lying in bed at time of visit, confused. Pt reported good appetite, would like coffee with meal tray. Per EMR PO intake 1005. Current Diet Order/ Nutrition Support regular Pertinent Medications coalce, Iron, synthroid, seroquel Pertinent Labs 07/18 Na 133, glucose 128, A1c 6.8 Nutritional Hx/Data Height 1.6 m Height (Calculated Centimeters) 160.0 Current Weight (lbs) 93.894 kg Weight (Calculated Kilograms) 93.9 Weight (Calculated Grams) 77776.6 [place] Body Weight 115 Body Mass Index (BMI) 36.6 Weight Status Obese GI Symptoms GI Symptoms None Last BM 4/16 Difficult in: None Skin Integrity/Comment: blackened to left dorsal medical foot Current %PO Good (75-100%) Estimated Nutritional Goals BEE in Kcals: Using Current wt Calories/Kcals/Kg 25-30 Kcals Calculated 1272-6587 Protein: Using Current wt Protein g/k Protein Calculated 63 Fluid: ml 1575-1890ml (1ml/kcal) Nutritional Problem No current Nutrition Prob Problem N/A Malnutrition Alert Protein-Calorie Malnutrition N/A Is there a minimum of two criteria No selected? Query Text:Check all the applicable criteria. A minimum of two criteria are recommended for diagnosis of either severe or non-severe malnutrition. Intervention/Recommendation Comments 1. Continue with current diet as ordered. 2. Monitor PO intake, wt, labs and skin integrity 3. F/U as low risk in 7 days, 07/29 Expected Outcomes/Goals Expected Outcomes/Goals 1. PO intake to meet at least 75% of nutritional needs. 2. Wt stability, skin to remain intact, labs to approach WNL.
--- NOTE | 2017-08-19 03:02 | Progress Notes ---
DATE: The patient was seen, chart reviewed, and discussed with staff. The patient is currently calm and redirectable. She did require p.r.n. medications yesterday, but is currently behaving herself compliant with medications. According to staff, she has been eating and sleeping okay. PLAN: The patient continues to be very disorganized and psychotic, will require continued inpatient care center treatment and titrate medications as needed. JOB# [id number]
[2017-08-19] MEDS: Levothyroxine 0.05 Mg Tab PO SCH (06:33)
[2017-08-19] MEDS: Ferrous Sulfate 325 MG TAB PO SCH (08:19)
[2017-08-19] MEDS: Multivitamin w/ Minerals Tab PO SCH (08:19)
[2017-08-19] MEDS ORDERED: chlorproMAZINE 25 mg/mL 2mL Amp IM STA (18:11)
[2017-08-19] MEDS ORDERED: chlorproMAZINE 25 mg/mL 2mL Amp ONE (18:18)
--- NOTE | 2017-08-19 22:20 | Internal Medicine Prog Note ---
Internal Medicine Subjective - Subjective Service Date: 08/19/17 Patient seen and examined:: without staff Patient is:: verbal, in wheelchair, confused Per staff patient has:: no adverse event (SHE HAS REDNESS OF LEFT SHOLDER SKIN) Internal Medicine Objective - Results Result Diagrams: 07/18/17 12:15 07/18/17 12:15 Recent Labs: Laboratory Last Values WBC 7.4 Th/cmm (4.8-10.8) 07/18/17 12:15 RBC 4.12 Mil/cmm (3.80-5.10) 07/18/17 12:15 Hgb 11.5 gm/dL (12-16) L 07/18/17 12:15 Hct 34.7 % (41.0-60) L 07/18/17 12:15 MCV 84.3 fl (81-100) 07/18/17 12:15 MCH 28.0 pg (27.0-31.0) 07/18/17 12:15 MCHC Differential 33.2 pg (28.0-36.0) 07/18/17 12:15 RDW 15.9 % (11.5-20.0) 07/18/17 12:15 Plt Count 186 Th/cmm (150-400) 07/18/17 12:15 MPV 8.4 fl 07/18/17 12:15 Neutrophils % 61.1 % (40.0-80.0) 07/18/17 12:15 Lymphocytes % 23.7 % (20.0-50.0) 07/18/17 12:15 Monocytes % 13.2 % (2.0-10.0) H 07/18/17 12:15 Eosinophils % 1.3 % (0.0-5.0) 07/18/17 12:15 Basophils % 0.7 % (0.0-2.0) 07/18/17 12:15 Sodium 133 mEq/L (136-145) L 07/18/17 12:15 Potassium 4.0 mEq/L (3.5-5.1) 07/18/17 12:15 Chloride 98 mEq/L (98-107) 07/18/17 12:15 Carbon Dioxide 27.8 mEq/L (21.0-31.0) 07/18/17 12:15 Anion Gap 11.2 (7.0-16.0) 07/18/17 12:15 BUN 10 mg/dL (7-25) 07/18/17 12:15 Creatinine 0.6 mg/dL (0.6-1.2) 07/18/17 12:15 Est GFR ( Amer) > 60.0 ml/min (>90) 07/18/17 12:15 Est GFR (Non-Af Amer) > 60.0 ml/min 07/18/17 12:15 BUN/Creatinine Ratio 16.7 07/18/17 12:15 Glucose 128 mg/dL (70-105) H 07/18/17 12:15 POC Glucose 116 MG/DL (70 - 105) H 07/30/17 16:06 Hemoglobin A1c % 6.8 % (4.0-6.0) H 07/18/17 12:15 Calcium 9.2 mg/dL (8.6-10.3) 07/18/17 12:15 Total Bilirubin 0.2 mg/dL (0.3-1.0) L 07/18/17 12:15 AST 12 U/L (13-39) L 07/18/17 12:15 ALT 8 U/L (7-52) 07/18/17 12:15 Alkaline Phosphatase 153 U/L (34-104) H 07/18/17 12:15 Total Protein 6.7 gm/dL (6.0-8.3) 07/18/17 12:15 Albumin 3.7 gm/dL (3.7-5.3) 07/18/17 12:15 Globulin 3.0 gm/dL 07/18/17 12:15 Albumin/Globulin Ratio 1.2 (1.0-1.8) 07/18/17 12:15 Triglycerides 61 mg/dL (<150) 07/18/17 12:15 Cholesterol 207 mg/dL (<200) H 07/18/17 12:15 LDL Cholesterol Direct 127 mg/dL (75-193) 07/18/17 12:15 HDL Cholesterol 61 mg/dL (23-92) 07/18/17 12:15 TSH 2.79 uIU/ml (0.34-5.60) 07/18/17 12:15 Salicylates < 25.0 mg/L (30.0-100.0) L 07/18/17 12:15 Acetaminophen < 10.0 ug/mL (10.0-30.0) L 07/18/17 12:15 Valproic Acid 53.3 ug/mL (50.0-100.0) 08/12/17 13:10 Ethyl Alcohol < 10 mg/dL (0-10) 07/18/17 12:15 RPR NONREACTIVE (NONREACTIVE) 07/18/17 12:15 - Physical Exam Vitals and I&O: Vital Signs Temp 98.9 F 08/19/17 19:51 Pulse 100 08/19/17 19:51 Resp 20 08/19/17 19:51 BP 104/59 08/19/17 19:51 Pulse Ox 96 08/19/17 19:51 Intake & Output 08/19/17 08/19/17 08/20/17 06:59 18:59 06:59 Intake Total 420 1000 240 Balance 420 1000 240 Intake: Oral 420 1000 240 Other: # Voids 2 5 2 # Bowel Movements 0 0 Active Medications: Current Medications Acetaminophen (Tylenol) 650 mg PO Q4HR PRN PRN Reason: Mild Pain / Temp above 100 Stop: 09/16/17 15:39 Al Hydrox/Mg Hydrox/Simethicone (Maalox) 30 ml PO Q4HR PRN PRN Reason: GI DISTRESS Stop: 09/16/17 15:39 Chlorpromazine (Thorazine) 100 mg PO TID [facility] PRN Reason: Protocol Stop: 10/16/17 13:59 Last Admin: 08/19/17 20:40 Dose: 100 mg Clonazepam (Klonopin) 2 mg PO BID [facility] PRN Reason: Protocol Stop: 09/17/17 08:59 Last Admin: 08/19/17 16:51 Dose: 2 mg Docusate Sodium (Colace) 100 mg PO BID [facility] Stop: 09/17/17 08:59 Last Admin: 08/19/17 16:51 Dose: 100 mg Famotidine (Pepcid) 20 mg PO DAILY [facility] Stop: 09/17/17 08:59 Last Admin: 08/19/17 08:19 Dose: 20 mg Ferrous Sulfate (Iron) 325 mg PO DAILY [facility] Stop: 09/17/17 08:59 Last Admin: 08/19/17 08:19 Dose: 325 mg Levothyroxine Sodium (Synthroid) 0.05 mg PO QDAC [facility] Stop: 09/17/17 07:29 Last Admin: 08/19/17 06:33 Dose: 0.05 mg Magnesium Hydroxide (Milk Of Magnesia) 30 ml PO DAILY PRN PRN Reason: Constipation Stop: 09/16/17 19:35 Valproate Sodium (Depakene) 500 mg PO BID [facility] PRN Reason: Protocol Stop: 09/17/17 10:59 Last Admin: 08/19/17 16:50 Dose: 500 mg Zolpidem Tartrate (Ambien) 5 mg PO HS PRN PRN Reason: Insomnia Stop: 09/16/17 15:39 Last Admin: 08/19/17 20:41 Dose: 5 mg General: demented HEENT: NC/AT, PERRLA, EOMI, anicteric sclerae, throat clear Neck: Supple, No JVD, No thyromegaly, +2 carotid pulse wo bruit, No LAD Lungs: CTAB Cardiovascular: Normal S1, Normal S2, without murmur Abdomen: non-tender, non-distended Extremities: rash Neurological: no change - Procedures Procedures: Procedures Procedure Code Date INDIVID PSYCHOTHERAP NEC 94.39 06/08/08 OTHER GROUP THERAPY 94.44 06/08/08 Internal Medicine Assmt/Plan - Assessment Assessment: 1.HYPOTHYROIDISM 2.DEMENTIA. 3.PSYCHOSIS - Plan Plan: CONTINUE ON CURRENT MEDICATION AND DIET. Nutritional Asmnt/Malnutr-PDOC - Dietary Evaluation Malnutrition Findings (Please click <Entered> for more info): Nutritional Asmnt/Malnutrition Start: 07/22/17 16: 21 Text: Status: Complete Freq: Document 07/22/17 16:21 [facility] (Rec: 07/22/17 16:35 [facility] [id number]) Nutritional Asmnt/Malnutrition Patient General Information Nutritional Screening Moderate Risk Diagnosis psychosis Pertinent Medical Hx/Surgical Hx hypothyroidism, chronic anemia , chronic constipation, dementia, psychosis Subjective Information Pt seen lying in bed at time of visit, confused. Pt reported good appetite, would like coffee with meal tray. Per EMR PO intake 1005. Current Diet Order/ Nutrition Support regular Pertinent Medications coalce, Iron, synthroid, seroquel Pertinent Labs 07/18 Na 133, glucose 128, A1c 6.8 Nutritional Hx/Data Height 1.6 m Height (Calculated Centimeters) 160.0 Current Weight (lbs) 93.894 kg Weight (Calculated Kilograms) 93.9 Weight (Calculated Grams) 78868.6 [place] Body Weight 115 Body Mass Index (BMI) 36.6 Weight Status Obese GI Symptoms GI Symptoms None Last BM 07/22 Difficult in: None Skin Integrity/Comment: blackened to left dorsal medical foot Current %PO Good (75-100%) Estimated Nutritional Goals BEE in Kcals: Using Current wt Calories/Kcals/Kg 25-30 Kcals Calculated 6996-2960 Protein: Using Current wt Protein g/k Protein Calculated 63 Fluid: ml 1575-1890ml (1ml/kcal) Nutritional Problem No current Nutrition Prob Problem N/A Malnutrition Alert Protein-Calorie Malnutrition N/A Is there a minimum of two criteria No selected? Query Text:Check all the applicable criteria. A minimum of two criteria are recommended for diagnosis of either severe or non-severe malnutrition. Intervention/Recommendation Comments 1. Continue with current diet as ordered. 2. Monitor PO intake, wt, labs and skin integrity 3. F/U as low risk in 7 days, 07/29 Expected Outcomes/Goals Expected Outcomes/Goals 1. PO intake to meet at least 75% of nutritional needs. 2. Wt stability, skin to remain intact, labs to approach WNL.
--- NOTE | 2017-08-19 23:39 | Progress Notes ---
DATE: 08/19/2017 Case was discussed with staff of the patient, reviewed records. The patient continues to have episodes of yelling and screaming. Continues to be unable to express herself very well. The more she will do, ask for a coffee. Continues to have poor insight, unpredictable impulsive. She is currently only on chlorpromazine. Today, she was acting out, but she did not need any injection, she calmed on her own. No side effects with the medication, no sedation, no nausea, no extrapyramidal symptoms. We will continue to work with the patient in group therapy, milieu therapy, and adjust the medication as needed. JOB# [id number]
[2017-08-20] MEDS: Levothyroxine 0.05 Mg Tab PO SCH (06:44)
[2017-08-20] MEDS: Ferrous Sulfate 325 MG TAB PO SCH (08:22)
[2017-08-20] MEDS: Multivitamin w/ Minerals Tab PO SCH (08:22)
--- NOTE | 2017-08-20 10:48 | Internal Medicine Prog Note ---
Internal Medicine Subjective - Subjective Service Date: 08/20/17 Patient seen and examined:: with staff (she is eating better,less agitated.) Patient is:: verbal, in wheelchair, confused Per staff patient has:: no adverse event (SHE HAS REDNESS OF LEFT SHOLDER SKIN) Internal Medicine Objective - Results Result Diagrams: 07/18/17 12:15 07/18/17 12:15 Recent Labs: Laboratory Last Values WBC 7.4 Th/cmm (4.8-10.8) 07/18/17 12:15 RBC 4.12 Mil/cmm (3.80-5.10) 07/18/17 12:15 Hgb 11.5 gm/dL (12-16) L 07/18/17 12:15 Hct 34.7 % (41.0-60) L 07/18/17 12:15 MCV 84.3 fl (81-100) 07/18/17 12:15 MCH 28.0 pg (27.0-31.0) 07/18/17 12:15 MCHC Differential 33.2 pg (28.0-36.0) 07/18/17 12:15 RDW 15.9 % (11.5-20.0) 07/18/17 12:15 Plt Count 186 Th/cmm (150-400) 07/18/17 12:15 MPV 8.4 fl 07/18/17 12:15 Neutrophils % 61.1 % (40.0-80.0) 07/18/17 12:15 Lymphocytes % 23.7 % (20.0-50.0) 07/18/17 12:15 Monocytes % 13.2 % (2.0-10.0) H 07/18/17 12:15 Eosinophils % 1.3 % (0.0-5.0) 07/18/17 12:15 Basophils % 0.7 % (0.0-2.0) 07/18/17 12:15 Sodium 133 mEq/L (136-145) L 07/18/17 12:15 Potassium 4.0 mEq/L (3.5-5.1) 07/18/17 12:15 Chloride 98 mEq/L (98-107) 07/18/17 12:15 Carbon Dioxide 27.8 mEq/L (21.0-31.0) 07/18/17 12:15 Anion Gap 11.2 (7.0-16.0) 07/18/17 12:15 BUN 10 mg/dL (7-25) 07/18/17 12:15 Creatinine 0.6 mg/dL (0.6-1.2) 07/18/17 12:15 Est GFR ( Amer) > 60.0 ml/min (>90) 07/18/17 12:15 Est GFR (Non-Af Amer) > 60.0 ml/min 07/18/17 12:15 BUN/Creatinine Ratio 16.7 07/18/17 12:15 Glucose 128 mg/dL (70-105) H 07/18/17 12:15 POC Glucose 116 MG/DL (70 - 105) H 07/30/17 16:06 Hemoglobin A1c % 6.8 % (4.0-6.0) H 07/18/17 12:15 Calcium 9.2 mg/dL (8.6-10.3) 07/18/17 12:15 Total Bilirubin 0.2 mg/dL (0.3-1.0) L 07/18/17 12:15 AST 12 U/L (13-39) L 07/18/17 12:15 ALT 8 U/L (7-52) 07/18/17 12:15 Alkaline Phosphatase 153 U/L (34-104) H 07/18/17 12:15 Total Protein 6.7 gm/dL (6.0-8.3) 07/18/17 12:15 Albumin 3.7 gm/dL (3.7-5.3) 07/18/17 12:15 Globulin 3.0 gm/dL 07/18/17 12:15 Albumin/Globulin Ratio 1.2 (1.0-1.8) 07/18/17 12:15 Triglycerides 61 mg/dL (<150) 07/18/17 12:15 Cholesterol 207 mg/dL (<200) H 07/18/17 12:15 LDL Cholesterol Direct 127 mg/dL (75-193) 07/18/17 12:15 HDL Cholesterol 61 mg/dL (23-92) 07/18/17 12:15 TSH 2.79 uIU/ml (0.34-5.60) 07/18/17 12:15 Salicylates < 25.0 mg/L (30.0-100.0) L 07/18/17 12:15 Acetaminophen < 10.0 ug/mL (10.0-30.0) L 07/18/17 12:15 Valproic Acid 53.3 ug/mL (50.0-100.0) 08/12/17 13:10 Ethyl Alcohol < 10 mg/dL (0-10) 07/18/17 12:15 RPR NONREACTIVE (NONREACTIVE) 07/18/17 12:15 - Physical Exam Vitals and I&O: Vital Signs Temp 98.3 F 08/20/17 06:45 Pulse 89 08/20/17 06:45 Resp 20 08/20/17 06:45 BP 110/74 08/20/17 06:45 Pulse Ox 98 08/20/17 06:45 Intake & Output 08/19/17 08/20/17 08/20/17 18:59 06:59 18:59 Intake Total 1000 480 Balance 1000 480 Intake: Oral 1000 480 Other: # Voids 5 2 # Bowel Movements 0 Active Medications: Current Medications Acetaminophen (Tylenol) 650 mg PO Q4HR PRN PRN Reason: Mild Pain / Temp above 100 Stop: 09/16/17 15:39 Al Hydrox/Mg Hydrox/Simethicone (Maalox) 30 ml PO Q4HR PRN PRN Reason: GI DISTRESS Stop: 09/16/17 15:39 Chlorpromazine (Thorazine) 100 mg PO TID [facility] PRN Reason: Protocol Stop: 10/16/17 13:59 Last Admin: 08/20/17 08:23 Dose: 100 mg Clonazepam (Klonopin) 2 mg PO BID [facility] PRN Reason: Protocol Stop: 09/17/17 08:59 Last Admin: 08/20/17 08:22 Dose: 2 mg Docusate Sodium (Colace) 100 mg PO BID [facility] Stop: 09/17/17 08:59 Last Admin: 08/20/17 08:22 Dose: 100 mg Famotidine (Pepcid) 20 mg PO DAILY [facility] Stop: 09/17/17 08:59 Last Admin: 08/20/17 08:22 Dose: 20 mg Ferrous Sulfate (Iron) 325 mg PO DAILY [facility] Stop: 09/17/17 08:59 Last Admin: 05/15/18 08:22 Dose: 325 mg Levothyroxine Sodium (Synthroid) 0.05 mg PO QDAC [facility] Stop: 09/17/17 07:29 Last Admin: 08/20/17 06:44 Dose: 0.05 mg Magnesium Hydroxide (Milk Of Magnesia) 30 ml PO DAILY PRN PRN Reason: Constipation Stop: 09/16/17 19:35 Valproate Sodium (Depakene) 500 mg PO BID [facility] PRN Reason: Protocol Stop: 09/17/17 10:59 Last Admin: 08/20/17 08:22 Dose: 500 mg Zolpidem Tartrate (Ambien) 5 mg PO HS PRN PRN Reason: Insomnia Stop: 09/16/17 15:39 Last Admin: 08/19/17 20:41 Dose: 5 mg General: demented HEENT: NC/AT, PERRLA, EOMI, anicteric sclerae, throat clear Neck: Supple, No JVD, No thyromegaly, +2 carotid pulse wo bruit, No LAD Lungs: CTAB Cardiovascular: Normal S1, Normal S2, without murmur Abdomen: non-tender, non-distended Extremities: rash Neurological: no change - Procedures Procedures: Procedures Procedure Code Date INDIVID PSYCHOTHERAP NEC 94.39 06/08/08 OTHER GROUP THERAPY 94.44 06/08/08 Internal Medicine Assmt/Plan - Assessment Assessment: 1.HYPOTHYROIDISM 2.DEMENTIA. 3.PSYCHOSIS - Plan Plan: CONTINUE ON CURRENT MEDICATION AND DIET. Nutritional Asmnt/Malnutr-PDOC - Dietary Evaluation Malnutrition Findings (Please click <Entered> for more info): Nutritional Asmnt/Malnutrition Start: 07/22/17 16: 21 Text: Status: Complete Freq: Document 07/22/17 16:21 [facility] (Rec: 07/22/17 16:35 [facility] [id number]) Nutritional Asmnt/Malnutrition Patient General Information Nutritional Screening Moderate Risk Diagnosis psychosis Pertinent Medical Hx/Surgical Hx hypothyroidism, chronic anemia , chronic constipation, dementia, psychosis Subjective Information Pt seen lying in bed at time of visit, confused. Pt reported good appetite, would like coffee with meal tray. Per EMR PO intake 1005. Current Diet Order/ Nutrition Support regular Pertinent Medications coalce, Iron, synthroid, seroquel Pertinent Labs 07/18 Na 133, glucose 128, A1c 6.8 Nutritional Hx/Data Height 1.6 m Height (Calculated Centimeters) 160.0 Current Weight (lbs) 93.894 kg Weight (Calculated Kilograms) 93.9 Weight (Calculated Grams) 99181.6 [place] Body Weight 115 Body Mass Index (BMI) 36.6 Weight Status Obese GI Symptoms GI Symptoms None Last BM 07/22 Difficult in: None Skin Integrity/Comment: blackened to left dorsal medical foot Current %PO Good (75-100%) Estimated Nutritional Goals BEE in Kcals: Using Current wt Calories/Kcals/Kg 25-30 Kcals Calculated 5274-0729 Protein: Using Current wt Protein g/k Protein Calculated 63 Fluid: ml 1575-1890ml (1ml/kcal) Nutritional Problem No current Nutrition Prob Problem N/A Malnutrition Alert Protein-Calorie Malnutrition N/A Is there a minimum of two criteria No selected? Query Text:Check all the applicable criteria. A minimum of two criteria are recommended for diagnosis of either severe or non-severe malnutrition. Intervention/Recommendation Comments 1. Continue with current diet as ordered. 2. Monitor PO intake, wt, labs and skin integrity 3. F/U as low risk in 7 days, 07/29 Expected Outcomes/Goals Expected Outcomes/Goals 1. PO intake to meet at least 75% of nutritional needs. 2. Wt stability, skin to remain intact, labs to approach WNL.
--- NOTE | 2017-08-20 21:57 | Progress Notes ---
DATE: 08/20/2017 Case discussed with staff of the patient, reviewed records. The patient continues to have episodes of irritability, agitation with episodes of feeling and screaming. We are waiting on placement for her. She is sleeping well. She is eating well, no side effects with the medication, no sedation, no nausea, noted from the symptoms. We will continue to work with the patient in group therapy, milieu therapy, adjust medication as needed. [facility]# [id number]
[2017-08-21] MEDS: Levothyroxine 0.05 Mg Tab PO SCH (06:42)
[2017-08-21] MEDS: Ferrous Sulfate 325 MG TAB PO SCH (08:50)
[2017-08-21] MEDS: Multivitamin w/ Minerals Tab PO SCH (08:50)
--- NOTE | 2017-08-21 12:09 | Progress Notes ---
DATE: 08/21/2017 SUBJECTIVE: The case was discussed with staff of the patient and reviewed records. The patient continues to be doing the same, continues to be unpredictable, impulsive, continues episodes of yelling and screaming. She is developmentally disabled, unable to care for herself or make safe plan for self-care, unable to take care of herself, need total help with her ADLs. Very poor insight and so far no side effects with the medication, no sedation, no nausea ____ from the symptoms and we will continue outpatient group therapy, milieu therapy, adjust medication as needed. JOB# [id number]
--- NOTE | 2017-08-21 23:34 | Internal Medicine Prog Note ---
Internal Medicine Subjective - Subjective Service Date: 08/21/17 Patient seen and examined:: without staff Patient is:: verbal, in wheelchair, confused Per staff patient has:: no adverse event (SHE HAS REDNESS OF LEFT SHOLDER SKIN) Internal Medicine Objective - Results Result Diagrams: 07/18/17 12:15 07/18/17 12:15 Recent Labs: Laboratory Last Values WBC 7.4 Th/cmm (4.8-10.8) 07/18/17 12:15 RBC 4.12 Mil/cmm (3.80-5.10) 07/18/17 12:15 Hgb 11.5 gm/dL (12-16) L 07/18/17 12:15 Hct 34.7 % (41.0-60) L 07/18/17 12:15 MCV 84.3 fl (81-100) 07/18/17 12:15 MCH 28.0 pg (27.0-31.0) 07/18/17 12:15 MCHC Differential 33.2 pg (28.0-36.0) 07/18/17 12:15 RDW 15.9 % (11.5-20.0) 07/18/17 12:15 Plt Count 186 Th/cmm (150-400) 07/18/17 12:15 MPV 8.4 fl 07/18/17 12:15 Neutrophils % 61.1 % (40.0-80.0) 07/18/17 12:15 Lymphocytes % 23.7 % (20.0-50.0) 07/18/17 12:15 Monocytes % 13.2 % (2.0-10.0) H 07/18/17 12:15 Eosinophils % 1.3 % (0.0-5.0) 07/18/17 12:15 Basophils % 0.7 % (0.0-2.0) 07/18/17 12:15 Sodium 133 mEq/L (136-145) L 07/18/17 12:15 Potassium 4.0 mEq/L (3.5-5.1) 07/18/17 12:15 Chloride 98 mEq/L (98-107) 07/18/17 12:15 Carbon Dioxide 27.8 mEq/L (21.0-31.0) 07/18/17 12:15 Anion Gap 11.2 (7.0-16.0) 07/18/17 12:15 BUN 10 mg/dL (7-25) 07/18/17 12:15 Creatinine 0.6 mg/dL (0.6-1.2) 07/18/17 12:15 Est GFR ( Amer) > 60.0 ml/min (>90) 07/18/17 12:15 Est GFR (Non-Af Amer) > 60.0 ml/min 07/18/17 12:15 BUN/Creatinine Ratio 16.7 07/18/17 12:15 Glucose 128 mg/dL (70-105) H 07/18/17 12:15 POC Glucose 116 MG/DL (70 - 105) H 07/30/17 16:06 Hemoglobin A1c % 6.8 % (4.0-6.0) H 07/18/17 12:15 Calcium 9.2 mg/dL (8.6-10.3) 07/18/17 12:15 Total Bilirubin 0.2 mg/dL (0.3-1.0) L 07/18/17 12:15 AST 12 U/L (13-39) L 07/18/17 12:15 ALT 8 U/L (7-52) 07/18/17 12:15 Alkaline Phosphatase 153 U/L (34-104) H 07/18/17 12:15 Total Protein 6.7 gm/dL (6.0-8.3) 07/18/17 12:15 Albumin 3.7 gm/dL (3.7-5.3) 07/18/17 12:15 Globulin 3.0 gm/dL 07/18/17 12:15 Albumin/Globulin Ratio 1.2 (1.0-1.8) 07/18/17 12:15 Triglycerides 61 mg/dL (<150) 07/18/17 12:15 Cholesterol 207 mg/dL (<200) H 07/18/17 12:15 LDL Cholesterol Direct 127 mg/dL (75-193) 07/18/17 12:15 HDL Cholesterol 61 mg/dL (23-92) 07/18/17 12:15 TSH 2.79 uIU/ml (0.34-5.60) 07/18/17 12:15 Salicylates < 25.0 mg/L (30.0-100.0) L 07/18/17 12:15 Acetaminophen < 10.0 ug/mL (10.0-30.0) L 07/18/17 12:15 Valproic Acid 53.3 ug/mL (50.0-100.0) 08/12/17 13:10 Ethyl Alcohol < 10 mg/dL (0-10) 07/18/17 12:15 RPR NONREACTIVE (NONREACTIVE) 07/18/17 12:15 - Physical Exam Vitals and I&O: Vital Signs Temp 97.4 F 08/21/17 20:00 Pulse 87 08/21/17 20:00 Resp 20 08/21/17 20:00 BP 118/63 08/21/17 20:00 Pulse Ox 98 08/21/17 20:00 Intake & Output 08/21/17 08/21/17 08/22/17 06:59 18:59 06:59 Intake Total 300 1500 Balance 300 1500 Intake: Oral 300 1500 Other: # Voids 2 4 # Bowel Movements 0 Active Medications: Current Medications Acetaminophen (Tylenol) 650 mg PO Q4HR PRN PRN Reason: Mild Pain / Temp above 100 Stop: 09/16/17 15:39 Al Hydrox/Mg Hydrox/Simethicone (Maalox) 30 ml PO Q4HR PRN PRN Reason: GI DISTRESS Stop: 09/16/17 15:39 Chlorpromazine (Thorazine) 100 mg PO TID [facility] PRN Reason: Protocol Stop: 10/16/17 13:59 Last Admin: 08/21/17 20:23 Dose: 100 mg Clonazepam (Klonopin) 2 mg PO BID [facility] PRN Reason: Protocol Stop: 09/17/17 08:59 Last Admin: 08/21/17 17:23 Dose: 2 mg Docusate Sodium (Colace) 100 mg PO BID [facility] Stop: 09/17/17 08:59 Last Admin: 08/21/17 17:23 Dose: 100 mg Famotidine (Pepcid) 20 mg PO DAILY [facility] Stop: 09/17/17 08:59 Last Admin: 08/21/17 08:50 Dose: 20 mg Ferrous Sulfate (Iron) 325 mg PO DAILY [facility] Stop: 09/17/17 08:59 Last Admin: 08/21/17 08:50 Dose: 325 mg Levothyroxine Sodium (Synthroid) 0.05 mg PO QDAC [facility] Stop: 09/17/17 07:29 Last Admin: 08/21/17 06:42 Dose: 0.05 mg Magnesium Hydroxide (Milk Of Magnesia) 30 ml PO DAILY PRN PRN Reason: Constipation Stop: 09/16/17 19:35 Valproate Sodium (Depakene) 500 mg PO BID [facility] PRN Reason: Protocol Stop: 09/17/17 10:59 Last Admin: 08/21/17 17:24 Dose: 500 mg Zolpidem Tartrate (Ambien) 5 mg PO HS PRN PRN Reason: Insomnia Stop: 09/16/17 15:39 Last Admin: 08/21/17 20:23 Dose: 5 mg General: demented HEENT: NC/AT, PERRLA, EOMI, anicteric sclerae, throat clear Neck: Supple, No JVD, No thyromegaly, +2 carotid pulse wo bruit, No LAD Lungs: CTAB Cardiovascular: Normal S1, Normal S2, without murmur Abdomen: non-tender, non-distended Extremities: rash Neurological: no change - Procedures Procedures: Procedures Procedure Code Date INDIVID PSYCHOTHERAP NEC 94.39 06/08/08 OTHER GROUP THERAPY 94.44 06/08/08 Internal Medicine Assmt/Plan - Assessment Assessment: 1.HYPOTHYROIDISM 2.DEMENTIA. 3.PSYCHOSIS - Plan Plan: CONTINUE ON CURRENT MEDICATION AND DIET. Nutritional Asmnt/Malnutr-PDOC - Dietary Evaluation Malnutrition Findings (Please click <Entered> for more info): Nutritional Asmnt/Malnutrition Start: 07/22/17 16: 21 Text: Status: Complete Freq: Document 07/22/17 16:21 [facility] (Rec: 07/22/17 16:35 [facility] [id number]) Nutritional Asmnt/Malnutrition Patient General Information Nutritional Screening Moderate Risk Diagnosis psychosis Pertinent Medical Hx/Surgical Hx hypothyroidism, chronic anemia , chronic constipation, dementia, psychosis Subjective Information Pt seen lying in bed at time of visit, confused. Pt reported good appetite, would like coffee with meal tray. Per EMR PO intake 1005. Current Diet Order/ Nutrition Support regular Pertinent Medications coalce, Iron, synthroid, seroquel Pertinent Labs 07/18 Na 133, glucose 128, A1c 6.8 Nutritional Hx/Data Height 1.6 m Height (Calculated Centimeters) 160.0 Current Weight (lbs) 93.894 kg Weight (Calculated Kilograms) 93.9 Weight (Calculated Grams) 29527.6 [place] Body Weight 115 Body Mass Index (BMI) 36.6 Weight Status Obese GI Symptoms GI Symptoms None Last BM 07/22 Difficult in: None Skin Integrity/Comment: blackened to left dorsal medical foot Current %PO Good (75-100%) Estimated Nutritional Goals BEE in Kcals: Using Current wt Calories/Kcals/Kg 25-30 Kcals Calculated 5096-0971 Protein: Using Current wt Protein g/k Protein Calculated 63 Fluid: ml 1575-1890ml (1ml/kcal) Nutritional Problem No current Nutrition Prob Problem N/A Malnutrition Alert Protein-Calorie Malnutrition N/A Is there a minimum of two criteria No selected? Query Text:Check all the applicable criteria. A minimum of two criteria are recommended for diagnosis of either severe or non-severe malnutrition. Intervention/Recommendation Comments 1. Continue with current diet as ordered. 2. Monitor PO intake, wt, labs and skin integrity 3. F/U as low risk in 7 days, 07/29 Expected Outcomes/Goals Expected Outcomes/Goals 1. PO intake to meet at least 75% of nutritional needs. 2. Wt stability, skin to remain intact, labs to approach WNL.
[2017-08-22] MEDS: Levothyroxine 0.05 Mg Tab PO SCH (06:37)
[2017-08-22] MEDS: Ferrous Sulfate 325 MG TAB PO SCH (09:40)
[2017-08-22] MEDS: Multivitamin w/ Minerals Tab PO SCH (09:40)
--- NOTE | 2017-08-22 21:34 | Progress Notes ---
DATE: 08/22/2017 SUBJECTIVE: Case discussed with staff of the patient. The patient continues to be the same, continues to have episodes of feeling screaming, but however, she has shown a lot of progress recently, where she is not screaming as much. She is responding better to redirection. She is sleeping better, eating better. No side effects with the medication, no sedation, no nausea, no extrapyramidal symptoms. Working on discharge plan and medication reviewed. There has been no change, they are the same like before and we will continue to work with the patient in group therapy, milieu therapy, adjust medication as needed. JOB# [id number]
--- NOTE | 2017-08-22 23:52 | Internal Medicine Prog Note ---
Internal Medicine Subjective - Subjective Service Date: 08/22/17 Patient seen and examined:: with staff Patient is:: verbal, in wheelchair, confused Per staff patient has:: no adverse event (SHE HAS REDNESS OF LEFT SHOLDER SKIN) Internal Medicine Objective - Results Result Diagrams: 07/18/17 12:15 07/18/17 12:15 Recent Labs: Laboratory Last Values WBC 7.4 Th/cmm (4.8-10.8) 07/18/17 12:15 RBC 4.12 Mil/cmm (3.80-5.10) 07/18/17 12:15 Hgb 11.5 gm/dL (12-16) L 07/18/17 12:15 Hct 34.7 % (41.0-60) L 07/18/17 12:15 MCV 84.3 fl (81-100) 07/18/17 12:15 MCH 28.0 pg (27.0-31.0) 07/18/17 12:15 MCHC Differential 33.2 pg (28.0-36.0) 07/18/17 12:15 RDW 15.9 % (11.5-20.0) 07/18/17 12:15 Plt Count 186 Th/cmm (150-400) 07/18/17 12:15 MPV 8.4 fl 07/18/17 12:15 Neutrophils % 61.1 % (40.0-80.0) 07/18/17 12:15 Lymphocytes % 23.7 % (20.0-50.0) 07/18/17 12:15 Monocytes % 13.2 % (2.0-10.0) H 07/18/17 12:15 Eosinophils % 1.3 % (0.0-5.0) 07/18/17 12:15 Basophils % 0.7 % (0.0-2.0) 07/18/17 12:15 Sodium 133 mEq/L (136-145) L 07/18/17 12:15 Potassium 4.0 mEq/L (3.5-5.1) 07/18/17 12:15 Chloride 98 mEq/L (98-107) 07/18/17 12:15 Carbon Dioxide 27.8 mEq/L (21.0-31.0) 07/18/17 12:15 Anion Gap 11.2 (7.0-16.0) 07/18/17 12:15 BUN 10 mg/dL (7-25) 07/18/17 12:15 Creatinine 0.6 mg/dL (0.6-1.2) 07/18/17 12:15 Est GFR ( Amer) > 60.0 ml/min (>90) 07/18/17 12:15 Est GFR (Non-Af Amer) > 60.0 ml/min 07/18/17 12:15 BUN/Creatinine Ratio 16.7 07/18/17 12:15 Glucose 128 mg/dL (70-105) H 07/18/17 12:15 POC Glucose 116 MG/DL (70 - 105) H 07/30/17 16:06 Hemoglobin A1c % 6.8 % (4.0-6.0) H 07/18/17 12:15 Calcium 9.2 mg/dL (8.6-10.3) 07/18/17 12:15 Total Bilirubin 0.2 mg/dL (0.3-1.0) L 07/18/17 12:15 AST 12 U/L (13-39) L 07/18/17 12:15 ALT 8 U/L (7-52) 07/18/17 12:15 Alkaline Phosphatase 153 U/L (34-104) H 07/18/17 12:15 Total Protein 6.7 gm/dL (6.0-8.3) 07/18/17 12:15 Albumin 3.7 gm/dL (3.7-5.3) 07/18/17 12:15 Globulin 3.0 gm/dL 07/18/17 12:15 Albumin/Globulin Ratio 1.2 (1.0-1.8) 07/18/17 12:15 Triglycerides 61 mg/dL (<150) 07/18/17 12:15 Cholesterol 207 mg/dL (<200) H 07/18/17 12:15 LDL Cholesterol Direct 127 mg/dL (75-193) 07/18/17 12:15 HDL Cholesterol 61 mg/dL (23-92) 07/18/17 12:15 TSH 2.79 uIU/ml (0.34-5.60) 07/18/17 12:15 Salicylates < 25.0 mg/L (30.0-100.0) L 07/18/17 12:15 Acetaminophen < 10.0 ug/mL (10.0-30.0) L 07/18/17 12:15 Valproic Acid 53.3 ug/mL (50.0-100.0) 08/12/17 13:10 Ethyl Alcohol < 10 mg/dL (0-10) 07/18/17 12:15 RPR NONREACTIVE (NONREACTIVE) 07/18/17 12:15 - Physical Exam Vitals and I&O: Vital Signs Temp 97.9 F 08/22/17 20:00 Pulse 96 08/22/17 20:00 Resp 21 08/22/17 20:00 BP 130/76 08/22/17 20:00 Pulse Ox 96 08/22/17 20:00 Intake & Output 08/22/17 08/22/17 08/23/17 06:59 18:59 06:59 Intake Total 120 1500 420 Balance 120 1500 420 Intake: Oral 120 1500 420 Other: # Voids 3 3 1 Active Medications: Current Medications Acetaminophen (Tylenol) 650 mg PO Q4HR PRN PRN Reason: Mild Pain / Temp above 100 Stop: 09/16/17 15:39 Al Hydrox/Mg Hydrox/Simethicone (Maalox) 30 ml PO Q4HR PRN PRN Reason: GI DISTRESS Stop: 09/16/17 15:39 Chlorpromazine (Thorazine) 100 mg PO TID LEVY PRN Reason: Protocol Stop: 10/16/17 13:59 Last Admin: 08/22/17 20:23 Dose: 100 mg Clonazepam (Klonopin) 2 mg PO BID LEVY PRN Reason: Protocol Stop: 09/17/17 08:59 Last Admin: 08/22/17 16:20 Dose: 2 mg Docusate Sodium (Colace) 100 mg PO BID [facility] Stop: 09/17/17 08:59 Last Admin: 08/22/17 16:20 Dose: 100 mg Famotidine (Pepcid) 20 mg PO DAILY [facility] Stop: 09/17/17 08:59 Last Admin: 08/22/17 09:40 Dose: 20 mg Ferrous Sulfate (Iron) 325 mg PO DAILY [facility] Stop: 09/17/17 08:59 Last Admin: 08/22/17 09:40 Dose: 325 mg Levothyroxine Sodium (Synthroid) 0.05 mg PO QDAC [facility] Stop: 09/17/17 07:29 Last Admin: 08/22/17 06:37 Dose: 0.05 mg Magnesium Hydroxide (Milk Of Magnesia) 30 ml PO DAILY PRN PRN Reason: Constipation Stop: 09/16/17 19:35 Valproate Sodium (Depakene) 500 mg PO BID LEVY PRN Reason: Protocol Stop: 09/17/17 10:59 Last Admin: 08/22/17 16:20 Dose: 500 mg Zolpidem Tartrate (Ambien) 5 mg PO HS PRN PRN Reason: Insomnia Stop: 09/16/17 15:39 Last Admin: 08/22/17 20:24 Dose: 5 mg General: demented HEENT: NC/AT, PERRLA, EOMI, anicteric sclerae, throat clear Neck: Supple, No JVD, No thyromegaly, +2 carotid pulse wo bruit, No LAD Lungs: CTAB Cardiovascular: Normal S1, Normal S2, without murmur Abdomen: non-tender, non-distended Extremities: rash Neurological: no change - Procedures Procedures: Procedures Procedure Code Date INDIVID PSYCHOTHERAP NEC 94.39 06/08/08 OTHER GROUP THERAPY 94.44 06/08/08 Internal Medicine Assmt/Plan - Assessment Assessment: 1.HYPOTHYROIDISM 2.DEMENTIA. 3.PSYCHOSIS - Plan Plan: CONTINUE ON CURRENT MEDICATION AND DIET. Nutritional Asmnt/Malnutr-PDOC - Dietary Evaluation Malnutrition Findings (Please click <Entered> for more info): Nutritional Asmnt/Malnutrition Start: 07/22/17 16: 21 Text: Status: Complete Freq: Document 07/22/17 16:21 FLORY (Rec: 07/22/17 16:35 [facility] [email or web address]) Nutritional Asmnt/Malnutrition Patient General Information Nutritional Screening Moderate Risk Diagnosis psychosis Pertinent Medical Hx/Surgical Hx hypothyroidism, chronic anemia , chronic constipation, dementia, psychosis Subjective Information Pt seen lying in bed at time of visit, confused. Pt reported good appetite, would like coffee with meal tray. Per EMR PO intake 1005. Current Diet Order/ Nutrition Support regular Pertinent Medications coalce, Iron, synthroid, seroquel Pertinent Labs 07/18 Na 133, glucose 128, A1c 6.8 Nutritional Hx/Data Height 1.6 m Height (Calculated Centimeters) 160.0 Current Weight (lbs) 93.894 kg Weight (Calculated Kilograms) 93.9 Weight (Calculated Grams) 96020.6 [place] Body Weight 115 Body Mass Index (BMI) 36.6 Weight Status Obese GI Symptoms GI Symptoms None Last BM 07/22 Difficult in: None Skin Integrity/Comment: blackened to left dorsal medical foot Current %PO Good (75-100%) Estimated Nutritional Goals BEE in Kcals: Using Current wt Calories/Kcals/Kg 25-30 Kcals Calculated 0190-2515 Protein: Using Current wt Protein g/k Protein Calculated 63 Fluid: ml 1575-1890ml (1ml/kcal) Nutritional Problem No current Nutrition Prob Problem N/A Malnutrition Alert Protein-Calorie Malnutrition N/A Is there a minimum of two criteria No selected? Query Text:Check all the applicable criteria. A minimum of two criteria are recommended for diagnosis of either severe or non-severe malnutrition. Intervention/Recommendation Comments 1. Continue with current diet as ordered. 2. Monitor PO intake, wt, labs and skin integrity 3. F/U as low risk in 7 days, 07/29 Expected Outcomes/Goals Expected Outcomes/Goals 1. PO intake to meet at least 75% of nutritional needs. 2. Wt stability, skin to remain intact, labs to approach WNL.
[2017-08-23] MEDS ORDERED: chlorproMAZINE 25 mg/mL 2mL Amp IM STA (03:36)
[2017-08-23] MEDS: Levothyroxine 0.05 Mg Tab PO SCH (06:33)
[2017-08-23] MEDS: Ferrous Sulfate 325 MG TAB PO SCH (10:00)
[2017-08-23] MEDS: Multivitamin w/ Minerals Tab PO SCH (10:00)
[2017-08-23] MEDS ORDERED: chlorproMAZINE 25 mg/mL 2mL Amp ONE (10:37)
[2017-08-23] MEDS ORDERED: chlorproMAZINE 25 mg/mL 2mL Amp IM ONE (10:40)
--- NOTE | 2017-08-23 19:46 | Internal Medicine Prog Note ---
Internal Medicine Subjective - Subjective Service Date: 08/23/17 Patient seen and examined:: with staff Patient is:: verbal, in wheelchair, confused Per staff patient has:: no adverse event (SHE HAS REDNESS OF LEFT SHOLDER SKIN) Internal Medicine Objective - Results Result Diagrams: 07/18/17 12:15 07/18/17 12:15 Recent Labs: Laboratory Last Values WBC 7.4 Th/cmm (4.8-10.8) 07/18/17 12:15 RBC 4.12 Mil/cmm (3.80-5.10) 07/18/17 12:15 Hgb 11.5 gm/dL (12-16) L 07/18/17 12:15 Hct 34.7 % (41.0-60) L 07/18/17 12:15 MCV 84.3 fl (81-100) 07/18/17 12:15 MCH 28.0 pg (27.0-31.0) 07/18/17 12:15 MCHC Differential 33.2 pg (28.0-36.0) 07/18/17 12:15 RDW 15.9 % (11.5-20.0) 07/18/17 12:15 Plt Count 186 Th/cmm (150-400) 07/18/17 12:15 MPV 8.4 fl 07/18/17 12:15 Neutrophils % 61.1 % (40.0-80.0) 07/18/17 12:15 Lymphocytes % 23.7 % (20.0-50.0) 07/18/17 12:15 Monocytes % 13.2 % (2.0-10.0) H 07/18/17 12:15 Eosinophils % 1.3 % (0.0-5.0) 07/18/17 12:15 Basophils % 0.7 % (0.0-2.0) 07/18/17 12:15 Sodium 133 mEq/L (136-145) L 07/18/17 12:15 Potassium 4.0 mEq/L (3.5-5.1) 07/18/17 12:15 Chloride 98 mEq/L (98-107) 07/18/17 12:15 Carbon Dioxide 27.8 mEq/L (21.0-31.0) 07/18/17 12:15 Anion Gap 11.2 (7.0-16.0) 07/18/17 12:15 BUN 10 mg/dL (7-25) 07/18/17 12:15 Creatinine 0.6 mg/dL (0.6-1.2) 07/18/17 12:15 Est GFR ( Amer) > 60.0 ml/min (>90) 07/18/17 12:15 Est GFR (Non-Af Amer) > 60.0 ml/min 07/18/17 12:15 BUN/Creatinine Ratio 16.7 07/18/17 12:15 Glucose 128 mg/dL (70-105) H 07/18/17 12:15 POC Glucose 116 MG/DL (70 - 105) H 07/30/17 16:06 Hemoglobin A1c % 6.8 % (4.0-6.0) H 07/18/17 12:15 Calcium 9.2 mg/dL (8.6-10.3) 07/18/17 12:15 Total Bilirubin 0.2 mg/dL (0.3-1.0) L 07/18/17 12:15 AST 12 U/L (13-39) L 07/18/17 12:15 ALT 8 U/L (7-52) 07/18/17 12:15 Alkaline Phosphatase 153 U/L (34-104) H 07/18/17 12:15 Total Protein 6.7 gm/dL (6.0-8.3) 07/18/17 12:15 Albumin 3.7 gm/dL (3.7-5.3) 07/18/17 12:15 Globulin 3.0 gm/dL 07/18/17 12:15 Albumin/Globulin Ratio 1.2 (1.0-1.8) 07/18/17 12:15 Triglycerides 61 mg/dL (<150) 07/18/17 12:15 Cholesterol 207 mg/dL (<200) H 07/18/17 12:15 LDL Cholesterol Direct 127 mg/dL (75-193) 07/18/17 12:15 HDL Cholesterol 61 mg/dL (23-92) 07/18/17 12:15 TSH 2.79 uIU/ml (0.34-5.60) 07/18/17 12:15 Salicylates < 25.0 mg/L (30.0-100.0) L 07/18/17 12:15 Acetaminophen < 10.0 ug/mL (10.0-30.0) L 07/18/17 12:15 Valproic Acid 53.3 ug/mL (50.0-100.0) 08/12/17 13:10 Ethyl Alcohol < 10 mg/dL (0-10) 07/18/17 12:15 RPR NONREACTIVE (NONREACTIVE) 07/18/17 12:15 - Physical Exam Vitals and I&O: Vital Signs Temp 97.6 F 08/23/17 15:08 Pulse 97 08/23/17 15:08 Resp 18 08/23/17 15:08 BP 138/82 08/23/17 15:08 Pulse Ox 98 08/23/17 15:08 Intake & Output 08/23/17 08/23/17 08/24/17 06:59 18:59 06:59 Intake Total 420 1500 Balance 420 1500 Intake: Oral 420 1500 Other: # Voids 1 4 Active Medications: Current Medications Acetaminophen (Tylenol) 650 mg PO Q4HR PRN PRN Reason: Mild Pain / Temp above 100 Stop: 09/16/17 15:39 Al Hydrox/Mg Hydrox/Simethicone (Maalox) 30 ml PO Q4HR PRN PRN Reason: GI DISTRESS Stop: 09/16/17 15:39 Chlorpromazine (Thorazine) 100 mg PO QID LEVY PRN Reason: Protocol Stop: 10/22/17 12:59 Last Admin: 08/23/17 17:11 Dose: 100 mg Clonazepam (Klonopin) 2 mg PO BID LEVY PRN Reason: Protocol Stop: 09/17/17 08:59 Last Admin: 08/23/17 17:23 Dose: 2 mg Docusate Sodium (Colace) 100 mg PO BID [facility] Stop: 09/17/17 08:59 Last Admin: 08/23/17 17:11 Dose: 100 mg Famotidine (Pepcid) 20 mg PO DAILY [facility] Stop: 09/17/17 08:59 Last Admin: 08/23/17 10:00 Dose: Not Given Ferrous Sulfate (Iron) 325 mg PO DAILY [facility] Stop: 09/17/17 08:59 Last Admin: 08/23/17 10:00 Dose: Not Given Levothyroxine Sodium (Synthroid) 0.05 mg PO QDAC [facility] Stop: 09/17/17 07:29 Last Admin: 08/23/17 06:33 Dose: Not Given Magnesium Hydroxide (Milk Of Magnesia) 30 ml PO DAILY PRN PRN Reason: Constipation Stop: 09/16/17 19:35 Valproate Sodium (Depakene) 500 mg PO BID [facility]EVY PRN Reason: Protocol Stop: 09/17/17 10:59 Last Admin: 08/23/17 17:11 Dose: 500 mg Zolpidem Tartrate (Ambien) 5 mg PO HS PRN PRN Reason: Insomnia Stop: 09/16/17 15:39 Last Admin: 08/23/17 01:25 Dose: 5 mg General: demented HEENT: NC/AT, PERRLA, EOMI, anicteric sclerae, throat clear Neck: Supple, No JVD, No thyromegaly, +2 carotid pulse wo bruit, No LAD Lungs: CTAB Cardiovascular: Normal S1, Normal S2, without murmur Abdomen: non-tender, non-distended Extremities: rash Neurological: no change - Procedures Procedures: Procedures Procedure Code Date INDIVID PSYCHOTHERAP NEC 94.39 06/08/08 OTHER GROUP THERAPY 94.44 06/08/08 Internal Medicine Assmt/Plan - Assessment Assessment: 1.HYPOTHYROIDISM 2.DEMENTIA. 3.PSYCHOSIS - Plan Plan: CONTINUE ON CURRENT MEDICATION AND DIET. Nutritional Asmnt/Malnutr-PDOC - Dietary Evaluation Malnutrition Findings (Please click <Entered> for more info): Nutritional Asmnt/Malnutrition Start: 07/22/17 16: 21 Text: Status: Complete Freq: Document 07/22/17 16:21 FLORY (Rec: 07/22/17 16:35 [facility] [id number]) Nutritional Asmnt/Malnutrition Patient General Information Nutritional Screening Moderate Risk Diagnosis psychosis Pertinent Medical Hx/Surgical Hx hypothyroidism, chronic anemia , chronic constipation, dementia, psychosis Subjective Information Pt seen lying in bed at time of visit, confused. Pt reported good appetite, would like coffee with meal tray. Per EMR PO intake 1005. Current Diet Order/ Nutrition Support regular Pertinent Medications coalce, Iron, synthroid, seroquel Pertinent Labs 07/18 Na 133, glucose 128, A1c 6.8 Nutritional Hx/Data Height 1.6 m Height (Calculated Centimeters) 160.0 Current Weight (lbs) 93.894 kg Weight (Calculated Kilograms) 93.9 Weight (Calculated Grams) 90113.6 [place] Body Weight 115 Body Mass Index (BMI) 36.6 Weight Status Obese GI Symptoms GI Symptoms None Last BM 07/22 Difficult in: None Skin Integrity/Comment: blackened to left dorsal medical foot Current %PO Good (75-100%) Estimated Nutritional Goals BEE in Kcals: Using Current wt Calories/Kcals/Kg 25-30 Kcals Calculated 2404-4170 Protein: Using Current wt Protein g/k Protein Calculated 63 Fluid: ml 1575-1890ml (1ml/kcal) Nutritional Problem No current Nutrition Prob Problem N/A Malnutrition Alert Protein-Calorie Malnutrition N/A Is there a minimum of two criteria No selected? Query Text:Check all the applicable criteria. A minimum of two criteria are recommended for diagnosis of either severe or non-severe malnutrition. Intervention/Recommendation Comments 1. Continue with current diet as ordered. 2. Monitor PO intake, wt, labs and skin integrity 3. F/U as low risk in 7 days, 07/29 Expected Outcomes/Goals Expected Outcomes/Goals 1. PO intake to meet at least 75% of nutritional needs. 2. Wt stability, skin to remain intact, labs to approach WNL.
--- NOTE | 2017-08-23 22:07 | Progress Notes ---
DATE: 08/23/2017 SUBJECTIVE: Case was discussed with staff of the patient, reviewed records. The patient was acting out this morning. She was yelling and screaming, had to be medicated. The patient unable to participate in meaningful conversation or make safe plan for self-care. She can ____ constantly. She was given chlorpromazine this morning when they called me at about 3:30 in the morning. The patient is on chlorpromazine 100 mg 3 times a day and this was increased on the 08/17/2017. I will be increasing the dose to 4 times a day to help with her severe agitation, acting out behavior. I did manage to take her off the Haldol and the Seroquel. So she only takes chlorpromazine and obviously the current dose is not enough though it did hold her for a while and now she is decompensating no current side effects of the medication, no sedation, no nausea, no extrapyramidal symptoms. The patient also waiting on placement for her. I will continue to work with the patient in group therapy, milieu therapy, and adjust the medications as needed. Her Depakote level was 53.3, which is within acceptable therapeutic range. JOB# [id number]
[2017-08-24] MEDS: Levothyroxine 0.05 Mg Tab PO SCH (06:43)
[2017-08-24] MEDS: Ferrous Sulfate 325 MG TAB PO SCH (09:22)
[2017-08-24] MEDS: Multivitamin w/ Minerals Tab PO SCH (09:22)
--- NOTE | 2017-08-24 16:41 | Internal Medicine Prog Note ---
Internal Medicine Subjective - Subjective Service Date: 08/24/17 Patient seen and examined:: with staff Patient is:: verbal, in wheelchair, confused Per staff patient has:: no adverse event (SHE HAS REDNESS OF LEFT SHOLDER SKIN) Internal Medicine Objective - Results Result Diagrams: 07/18/17 12:15 07/18/17 12:15 Recent Labs: Laboratory Last Values WBC 7.4 Th/cmm (4.8-10.8) 07/18/17 12:15 RBC 4.12 Mil/cmm (3.80-5.10) 07/18/17 12:15 Hgb 11.5 gm/dL (12-16) L 07/18/17 12:15 Hct 34.7 % (41.0-60) L 07/18/17 12:15 MCV 84.3 fl (81-100) 07/18/17 12:15 MCH 28.0 pg (27.0-31.0) 07/18/17 12:15 MCHC Differential 33.2 pg (28.0-36.0) 07/18/17 12:15 RDW 15.9 % (11.5-20.0) 07/18/17 12:15 Plt Count 186 Th/cmm (150-400) 07/18/17 12:15 MPV 8.4 fl 07/18/17 12:15 Neutrophils % 61.1 % (40.0-80.0) 07/18/17 12:15 Lymphocytes % 23.7 % (20.0-50.0) 07/18/17 12:15 Monocytes % 13.2 % (2.0-10.0) H 07/18/17 12:15 Eosinophils % 1.3 % (0.0-5.0) 07/18/17 12:15 Basophils % 0.7 % (0.0-2.0) 07/18/17 12:15 Sodium 133 mEq/L (136-145) L 07/18/17 12:15 Potassium 4.0 mEq/L (3.5-5.1) 07/18/17 12:15 Chloride 98 mEq/L (98-107) 07/18/17 12:15 Carbon Dioxide 27.8 mEq/L (21.0-31.0) 07/18/17 12:15 Anion Gap 11.2 (7.0-16.0) 07/18/17 12:15 BUN 10 mg/dL (7-25) 07/18/17 12:15 Creatinine 0.6 mg/dL (0.6-1.2) 07/18/17 12:15 Est GFR ( Amer) > 60.0 ml/min (>90) 07/18/17 12:15 Est GFR (Non-Af Amer) > 60.0 ml/min 07/18/17 12:15 BUN/Creatinine Ratio 16.7 07/18/17 12:15 Glucose 128 mg/dL (70-105) H 07/18/17 12:15 POC Glucose 116 MG/DL (70 - 105) H 07/30/17 16:06 Hemoglobin A1c % 6.8 % (4.0-6.0) H 07/18/17 12:15 Calcium 9.2 mg/dL (8.6-10.3) 07/18/17 12:15 Total Bilirubin 0.2 mg/dL (0.3-1.0) L 07/18/17 12:15 AST 12 U/L (13-39) L 07/18/17 12:15 ALT 8 U/L (7-52) 07/18/17 12:15 Alkaline Phosphatase 153 U/L (34-104) H 07/18/17 12:15 Total Protein 6.7 gm/dL (6.0-8.3) 07/18/17 12:15 Albumin 3.7 gm/dL (3.7-5.3) 07/18/17 12:15 Globulin 3.0 gm/dL 07/18/17 12:15 Albumin/Globulin Ratio 1.2 (1.0-1.8) 07/18/17 12:15 Triglycerides 61 mg/dL (<150) 07/18/17 12:15 Cholesterol 207 mg/dL (<200) H 07/18/17 12:15 LDL Cholesterol Direct 127 mg/dL (75-193) 07/18/17 12:15 HDL Cholesterol 61 mg/dL (23-92) 07/18/17 12:15 TSH 2.79 uIU/ml (0.34-5.60) 07/18/17 12:15 Salicylates < 25.0 mg/L (30.0-100.0) L 07/18/17 12:15 Acetaminophen < 10.0 ug/mL (10.0-30.0) L 07/18/17 12:15 Valproic Acid 53.3 ug/mL (50.0-100.0) 08/12/17 13:10 Ethyl Alcohol < 10 mg/dL (0-10) 07/18/17 12:15 RPR NONREACTIVE (NONREACTIVE) 07/18/17 12:15 - Physical Exam Vitals and I&O: Vital Signs Temp 97.6 F 08/24/17 14:00 Pulse 94 08/24/17 14:00 Resp 18 08/24/17 14:00 BP 114/71 08/24/17 14:00 Pulse Ox 97 08/24/17 14:00 Intake & Output 08/23/17 08/24/17 08/24/17 18:59 06:59 18:59 Intake Total 1500 Balance 1500 Intake: Oral 1500 Other: # Voids 4 Active Medications: Current Medications Acetaminophen (Tylenol) 650 mg PO Q4HR PRN PRN Reason: Mild Pain / Temp above 100 Stop: 09/16/17 15:39 Al Hydrox/Mg Hydrox/Simethicone (Maalox) 30 ml PO Q4HR PRN PRN Reason: GI DISTRESS Stop: 09/16/17 15:39 Chlorpromazine (Thorazine) 100 mg PO QID [facility] PRN Reason: Protocol Stop: 10/22/17 12:59 Last Admin: 08/24/17 14:00 Dose: 100 mg Clonazepam (Klonopin) 2 mg PO BID [facility] PRN Reason: Protocol Stop: 09/17/17 08:59 Last Admin: 08/24/17 09:22 Dose: 2 mg Docusate Sodium (Colace) 100 mg PO BID [facility] Stop: 09/17/17 08:59 Last Admin: 08/24/17 09:22 Dose: Not Given Famotidine (Pepcid) 20 mg PO DAILY [facility] Stop: 09/17/17 08:59 Last Admin: 08/24/17 09:22 Dose: 20 mg Ferrous Sulfate (Iron) 325 mg PO DAILY [facility] Stop: 09/17/17 08:59 Last Admin: 08/24/17 09:22 Dose: 325 mg Levothyroxine Sodium (Synthroid) 0.05 mg PO QDAC [facility] Stop: 09/17/17 07:29 Last Admin: 08/24/17 06:43 Dose: 0.05 mg Magnesium Hydroxide (Milk Of Magnesia) 30 ml PO DAILY PRN PRN Reason: Constipation Stop: 09/16/17 19:35 Valproate Sodium (Depakene) 500 mg PO BID [facility] PRN Reason: Protocol Stop: 09/17/17 10:59 Last Admin: 08/24/17 09:21 Dose: 500 mg Zolpidem Tartrate (Ambien) 5 mg PO HS PRN PRN Reason: Insomnia Stop: 09/16/17 15:39 Last Admin: 08/24/17 00:20 Dose: 5 mg General: demented HEENT: NC/AT, PERRLA, EOMI, anicteric sclerae, throat clear Neck: Supple, No JVD, No thyromegaly, +2 carotid pulse wo bruit, No LAD Lungs: CTAB Cardiovascular: Normal S1, Normal S2, without murmur Abdomen: non-tender, non-distended Extremities: rash Neurological: no change - Procedures Procedures: Procedures Procedure Code Date INDIVID PSYCHOTHERAP NEC 94.39 06/08/08 OTHER GROUP THERAPY 94.44 06/08/08 Internal Medicine Assmt/Plan - Assessment Assessment: 1.HYPOTHYROIDISM 2.DEMENTIA. 3.PSYCHOSIS - Plan Plan: CONTINUE ON CURRENT MEDICATION AND DIET. Nutritional Asmnt/Malnutr-PDOC - Dietary Evaluation Malnutrition Findings (Please click <Entered> for more info): Nutritional Asmnt/Malnutrition Start: 07/22/17 16: 21 Text: Status: Complete Freq: Document 07/22/17 16:21 LCFLORY (Rec: 07/22/17 16:35 [id number]) Nutritional Asmnt/Malnutrition Patient General Information Nutritional Screening Moderate Risk Diagnosis psychosis Pertinent Medical Hx/Surgical Hx hypothyroidism, chronic anemia , chronic constipation, dementia, psychosis Subjective Information Pt seen lying in bed at time of visit, confused. Pt reported good appetite, would like coffee with meal tray. Per EMR PO intake 1005. Current Diet Order/ Nutrition Support regular Pertinent Medications coalce, Iron, synthroid, seroquel Pertinent Labs 07/18 Na 133, glucose 128, A1c 6.8 Nutritional Hx/Data Height 1.6 m Height (Calculated Centimeters) 160.0 Current Weight (lbs) 93.894 kg Weight (Calculated Kilograms) 93.9 Weight (Calculated Grams) 97885.6 [place] Body Weight 115 Body Mass Index (BMI) 36.6 Weight Status Obese GI Symptoms GI Symptoms None Last BM 07/22 Difficult in: None Skin Integrity/Comment: blackened to left dorsal medical foot Current %PO Good (75-100%) Estimated Nutritional Goals BEE in Kcals: Using Current wt Calories/Kcals/Kg 25-30 Kcals Calculated 3463-2240 Protein: Using Current wt Protein g/k Protein Calculated 63 Fluid: ml 1575-1890ml (1ml/kcal) Nutritional Problem No current Nutrition Prob Problem N/A Malnutrition Alert Protein-Calorie Malnutrition N/A Is there a minimum of two criteria No selected? Query Text:Check all the applicable criteria. A minimum of two criteria are recommended for diagnosis of either severe or non-severe malnutrition. Intervention/Recommendation Comments 1. Continue with current diet as ordered. 2. Monitor PO intake, wt, labs and skin integrity 3. F/U as low risk in 7 days, 07/29 Expected Outcomes/Goals Expected Outcomes/Goals 1. PO intake to meet at least 75% of nutritional needs. 2. Wt stability, skin to remain intact, labs to approach WNL.
--- NOTE | 2017-08-24 21:35 | Progress Notes ---
DATE: 08/24/2017 SUBJECTIVE: Case was discussed with staff of the patient, reviewed records. The patient is reported by staff who was yelling and screaming all yesterday, but today she is a little bit better. Yesterday, I increased her chlorpromazine 200 mg 4 times a day. The patient continues to have poor insight, unable to make safe plan for self-care, unable to engage in a meaningful conversation, unpredictable, impulsive, needing redirection. She is sleeping better, eating better. No side effects with the medication, no sedation, no nausea, no extrapyramidal symptoms. We will continue the patient in group therapy and milieu therapy, and adjust the medications as needed. [facility]# [id number]
[2017-08-25] MEDS: Levothyroxine 0.05 Mg Tab PO SCH (06:54)
[2017-08-25] MEDS: Ferrous Sulfate 325 MG TAB PO SCH (08:18)
[2017-08-25] MEDS: Multivitamin w/ Minerals Tab PO SCH (08:18)
--- NOTE | 2017-08-25 20:26 | Internal Medicine Prog Note ---
Internal Medicine Subjective - Subjective Service Date: 08/25/17 Patient seen and examined:: with staff Patient is:: verbal, in wheelchair, confused Per staff patient has:: no adverse event (SHE HAS REDNESS OF LEFT SHOLDER SKIN) Internal Medicine Objective - Results Result Diagrams: 07/18/17 12:15 07/18/17 12:15 Recent Labs: Laboratory Last Values WBC 7.4 Th/cmm (4.8-10.8) 07/18/17 12:15 RBC 4.12 Mil/cmm (3.80-5.10) 07/18/17 12:15 Hgb 11.5 gm/dL (12-16) L 07/18/17 12:15 Hct 34.7 % (41.0-60) L 07/18/17 12:15 MCV 84.3 fl (81-100) 07/18/17 12:15 MCH 28.0 pg (27.0-31.0) 07/18/17 12:15 MCHC Differential 33.2 pg (28.0-36.0) 07/18/17 12:15 RDW 15.9 % (11.5-20.0) 07/18/17 12:15 Plt Count 186 Th/cmm (150-400) 07/18/17 12:15 MPV 8.4 fl 07/18/17 12:15 Neutrophils % 61.1 % (40.0-80.0) 07/18/17 12:15 Lymphocytes % 23.7 % (20.0-50.0) 07/18/17 12:15 Monocytes % 13.2 % (2.0-10.0) H 07/18/17 12:15 Eosinophils % 1.3 % (0.0-5.0) 07/18/17 12:15 Basophils % 0.7 % (0.0-2.0) 07/18/17 12:15 Sodium 133 mEq/L (136-145) L 07/18/17 12:15 Potassium 4.0 mEq/L (3.5-5.1) 07/18/17 12:15 Chloride 98 mEq/L (98-107) 07/18/17 12:15 Carbon Dioxide 27.8 mEq/L (21.0-31.0) 07/18/17 12:15 Anion Gap 11.2 (7.0-16.0) 07/18/17 12:15 BUN 10 mg/dL (7-25) 07/18/17 12:15 Creatinine 0.6 mg/dL (0.6-1.2) 07/18/17 12:15 Est GFR ( Amer) > 60.0 ml/min (>90) 07/18/17 12:15 Est GFR (Non-Af Amer) > 60.0 ml/min 07/18/17 12:15 BUN/Creatinine Ratio 16.7 07/18/17 12:15 Glucose 128 mg/dL (70-105) H 07/18/17 12:15 POC Glucose 116 MG/DL (70 - 105) H 07/30/17 16:06 Hemoglobin A1c % 6.8 % (4.0-6.0) H 07/18/17 12:15 Calcium 9.2 mg/dL (8.6-10.3) 07/18/17 12:15 Total Bilirubin 0.2 mg/dL (0.3-1.0) L 07/18/17 12:15 AST 12 U/L (13-39) L 07/18/17 12:15 ALT 8 U/L (7-52) 07/18/17 12:15 Alkaline Phosphatase 153 U/L (34-104) H 07/18/17 12:15 Total Protein 6.7 gm/dL (6.0-8.3) 07/18/17 12:15 Albumin 3.7 gm/dL (3.7-5.3) 07/18/17 12:15 Globulin 3.0 gm/dL 07/18/17 12:15 Albumin/Globulin Ratio 1.2 (1.0-1.8) 07/18/17 12:15 Triglycerides 61 mg/dL (<150) 07/18/17 12:15 Cholesterol 207 mg/dL (<200) H 07/18/17 12:15 LDL Cholesterol Direct 127 mg/dL (75-193) 07/18/17 12:15 HDL Cholesterol 61 mg/dL (23-92) 07/18/17 12:15 TSH 2.79 uIU/ml (0.34-5.60) 07/18/17 12:15 Salicylates < 25.0 mg/L (30.0-100.0) L 07/18/17 12:15 Acetaminophen < 10.0 ug/mL (10.0-30.0) L 07/18/17 12:15 Valproic Acid 53.3 ug/mL (50.0-100.0) 08/12/17 13:10 Ethyl Alcohol < 10 mg/dL (0-10) 07/18/17 12:15 RPR NONREACTIVE (NONREACTIVE) 07/18/17 12:15 - Physical Exam Vitals and I&O: Vital Signs Temp 97.2 F 08/25/17 20:00 Pulse 93 08/25/17 20:00 Resp 20 08/25/17 20:00 BP 116/64 08/25/17 20:00 Pulse Ox 99 08/25/17 20:00 Intake & Output 08/25/17 08/25/17 08/26/17 06:59 18:59 06:59 Intake Total 120 1500 Balance 120 1500 Intake: Oral 120 1500 Other: # Voids 3 4 Active Medications: Current Medications Acetaminophen (Tylenol) 650 mg PO Q4HR PRN PRN Reason: Mild Pain / Temp above 100 Stop: 09/16/17 15:39 Al Hydrox/Mg Hydrox/Simethicone (Maalox) 30 ml PO Q4HR PRN PRN Reason: GI DISTRESS Stop: 09/16/17 15:39 Chlorpromazine (Thorazine) 100 mg PO QID [facility] PRN Reason: Protocol Stop: 10/22/17 12:59 Last Admin: 08/25/17 16:18 Dose: 100 mg Clonazepam (Klonopin) 2 mg PO BID [facility] PRN Reason: Protocol Stop: 09/17/17 08:59 Last Admin: 08/25/17 16:18 Dose: 2 mg Docusate Sodium (Colace) 100 mg PO BID [facility] Stop: 09/17/17 08:59 Last Admin: 08/25/17 16:19 Dose: 100 mg Famotidine (Pepcid) 20 mg PO DAILY [facility] Stop: 09/17/17 08:59 Last Admin: 08/25/17 08:17 Dose: 20 mg Ferrous Sulfate (Iron) 325 mg PO DAILY [facility] Stop: 09/17/17 08:59 Last Admin: 08/25/17 08:18 Dose: 325 mg Levothyroxine Sodium (Synthroid) 0.05 mg PO QDAC [facility] Stop: 09/17/17 07:29 Last Admin: 08/25/17 06:54 Dose: 0.05 mg Magnesium Hydroxide (Milk Of Magnesia) 30 ml PO DAILY PRN PRN Reason: Constipation Stop: 09/16/17 19:35 Valproate Sodium (Depakene) 500 mg PO BID [facility] PRN Reason: Protocol Stop: 09/17/17 10:59 Last Admin: 08/25/17 16:18 Dose: 500 mg Zolpidem Tartrate (Ambien) 5 mg PO HS PRN PRN Reason: Insomnia Stop: 09/16/17 15:39 Last Admin: 08/24/17 20:30 Dose: 5 mg General: demented HEENT: NC/AT, PERRLA, EOMI, anicteric sclerae, throat clear Neck: Supple, No JVD, No thyromegaly, +2 carotid pulse wo bruit, No LAD Lungs: CTAB Cardiovascular: Normal S1, Normal S2, without murmur Abdomen: non-tender, non-distended Extremities: rash Neurological: no change - Procedures Procedures: Procedures Procedure Code Date INDIVID PSYCHOTHERAP NEC 94.39 06/08/08 OTHER GROUP THERAPY 94.44 06/08/08 Internal Medicine Assmt/Plan - Assessment Assessment: 1.HYPOTHYROIDISM 2.DEMENTIA. 3.PSYCHOSIS - Plan Plan: CONTINUE ON CURRENT MEDICATION AND DIET. Nutritional Asmnt/Malnutr-PDOC - Dietary Evaluation Malnutrition Findings (Please click <Entered> for more info): Nutritional Asmnt/Malnutrition Start: 07/22/17 16: 21 Text: Status: Complete Freq: Document 07/22/17 16:21 [facility] (Rec: 07/22/17 16:35 [email or web address]) Nutritional Asmnt/Malnutrition Patient General Information Nutritional Screening Moderate Risk Diagnosis psychosis Pertinent Medical Hx/Surgical Hx hypothyroidism, chronic anemia , chronic constipation, dementia, psychosis Subjective Information Pt seen lying in bed at time of visit, confused. Pt reported good appetite, would like coffee with meal tray. Per EMR PO intake 1005. Current Diet Order/ Nutrition Support regular Pertinent Medications coalce, Iron, synthroid, seroquel Pertinent Labs 07/18 Na 133, glucose 128, A1c 6.8 Nutritional Hx/Data Height 1.6 m Height (Calculated Centimeters) 160.0 Current Weight (lbs) 93.894 kg Weight (Calculated Kilograms) 93.9 Weight (Calculated Grams) 88323.6 [place] Body Weight 115 Body Mass Index (BMI) 36.6 Weight Status Obese GI Symptoms GI Symptoms None Last BM 07/22 Difficult in: None Skin Integrity/Comment: blackened to left dorsal medical foot Current %PO Good (75-100%) Estimated Nutritional Goals BEE in Kcals: Using Current wt Calories/Kcals/Kg 25-30 Kcals Calculated 6475-6278 Protein: Using Current wt Protein g/k Protein Calculated 63 Fluid: ml 1575-1890ml (1ml/kcal) Nutritional Problem No current Nutrition Prob Problem N/A Malnutrition Alert Protein-Calorie Malnutrition N/A Is there a minimum of two criteria No selected? Query Text:Check all the applicable criteria. A minimum of two criteria are recommended for diagnosis of either severe or non-severe malnutrition. Intervention/Recommendation Comments 1. Continue with current diet as ordered. 2. Monitor PO intake, wt, labs and skin integrity 3. F/U as low risk in 7 days, 07/29 Expected Outcomes/Goals Expected Outcomes/Goals 1. PO intake to meet at least 75% of nutritional needs. 2. Wt stability, skin to remain intact, labs to approach WNL.
--- NOTE | 2017-08-25 21:13 | Progress Notes ---
DATE: 08/25/2017 Case was discussed with staff of the patient, reviewed records. The patient seems to be showing progress. She is not acting out as she was since we increased the dose of her chlorpromazine 200 mg 4 times a day. She has been easier to redirect, continues, however, to have episodes of where she gets agitated, asking for coffee, but she is easier to redirect. She is sleeping better, eating better, waiting on placement on this patient. No side effects with the medication, no sedation, no nausea, no extrapyramidal symptoms and we will continue to work with the patient in group therapy, milieu therapy, and adjust the medication as needed. JOB# [id number]
[2017-08-26] MEDS: Levothyroxine 0.05 Mg Tab PO SCH (06:51)
[2017-08-26] MEDS: Ferrous Sulfate 325 MG TAB PO SCH (08:17)
[2017-08-26] MEDS: Multivitamin w/ Minerals Tab PO SCH (08:17)
[2017-08-26] MEDS ORDERED: chlorproMAZINE 25 mg/mL 2mL Amp ONE (11:29)
--- NOTE | 2017-08-26 13:51 | Internal Medicine Prog Note ---
Internal Medicine Subjective - Subjective Service Date: 08/26/17 Patient seen and examined:: with staff (she is less agitated) Patient is:: verbal, in wheelchair, confused Per staff patient has:: no adverse event (SHE HAS REDNESS OF LEFT SHOLDER SKIN) Internal Medicine Objective - Results Result Diagrams: 07/18/17 12:15 07/18/17 12:15 Recent Labs: Laboratory Last Values WBC 7.4 Th/cmm (4.8-10.8) 07/18/17 12:15 RBC 4.12 Mil/cmm (3.80-5.10) 07/18/17 12:15 Hgb 11.5 gm/dL (12-16) L 07/18/17 12:15 Hct 34.7 % (41.0-60) L 07/18/17 12:15 MCV 84.3 fl (81-100) 07/18/17 12:15 MCH 28.0 pg (27.0-31.0) 07/18/17 12:15 MCHC Differential 33.2 pg (28.0-36.0) 07/18/17 12:15 RDW 15.9 % (11.5-20.0) 07/18/17 12:15 Plt Count 186 Th/cmm (150-400) 07/18/17 12:15 MPV 8.4 fl 07/18/17 12:15 Neutrophils % 61.1 % (40.0-80.0) 07/18/17 12:15 Lymphocytes % 23.7 % (20.0-50.0) 07/18/17 12:15 Monocytes % 13.2 % (2.0-10.0) H 07/18/17 12:15 Eosinophils % 1.3 % (0.0-5.0) 07/18/17 12:15 Basophils % 0.7 % (0.0-2.0) 07/18/17 12:15 Sodium 133 mEq/L (136-145) L 07/18/17 12:15 Potassium 4.0 mEq/L (3.5-5.1) 07/18/17 12:15 Chloride 98 mEq/L (98-107) 07/18/17 12:15 Carbon Dioxide 27.8 mEq/L (21.0-31.0) 07/18/17 12:15 Anion Gap 11.2 (7.0-16.0) 07/18/17 12:15 BUN 10 mg/dL (7-25) 07/18/17 12:15 Creatinine 0.6 mg/dL (0.6-1.2) 07/18/17 12:15 Est GFR ( Amer) > 60.0 ml/min (>90) 07/18/17 12:15 Est GFR (Non-Af Amer) > 60.0 ml/min 07/18/17 12:15 BUN/Creatinine Ratio 16.7 07/18/17 12:15 Glucose 128 mg/dL (70-105) H 07/18/17 12:15 POC Glucose 116 MG/DL (70 - 105) H 07/30/17 16:06 Hemoglobin A1c % 6.8 % (4.0-6.0) H 07/18/17 12:15 Calcium 9.2 mg/dL (8.6-10.3) 07/18/17 12:15 Total Bilirubin 0.2 mg/dL (0.3-1.0) L 07/18/17 12:15 AST 12 U/L (13-39) L 07/18/17 12:15 ALT 8 U/L (7-52) 07/18/17 12:15 Alkaline Phosphatase 153 U/L (34-104) H 07/18/17 12:15 Total Protein 6.7 gm/dL (6.0-8.3) 07/18/17 12:15 Albumin 3.7 gm/dL (3.7-5.3) 07/18/17 12:15 Globulin 3.0 gm/dL 07/18/17 12:15 Albumin/Globulin Ratio 1.2 (1.0-1.8) 07/18/17 12:15 Triglycerides 61 mg/dL (<150) 07/18/17 12:15 Cholesterol 207 mg/dL (<200) H 07/18/17 12:15 LDL Cholesterol Direct 127 mg/dL (75-193) 07/18/17 12:15 HDL Cholesterol 61 mg/dL (23-92) 07/18/17 12:15 TSH 2.79 uIU/ml (0.34-5.60) 07/18/17 12:15 Salicylates < 25.0 mg/L (30.0-100.0) L 07/18/17 12:15 Acetaminophen < 10.0 ug/mL (10.0-30.0) L 07/18/17 12:15 Valproic Acid 53.3 ug/mL (50.0-100.0) 08/12/17 13:10 Ethyl Alcohol < 10 mg/dL (0-10) 07/18/17 12:15 RPR NONREACTIVE (NONREACTIVE) 07/18/17 12:15 - Physical Exam Vitals and I&O: Vital Signs Temp 97.2 F 08/26/17 06:21 Pulse 67 08/26/17 06:21 Resp 19 08/26/17 06:21 BP 113/63 08/26/17 06:21 Pulse Ox 98 08/26/17 06:21 Intake & Output 08/25/17 08/26/17 08/26/17 18:59 06:59 18:59 Intake Total 1500 120 Balance 1500 120 Intake: Oral 1500 120 Other: # Voids 4 3 Stool Characteristics Soft Active Medications: Current Medications Acetaminophen (Tylenol) 650 mg PO Q4HR PRN PRN Reason: Mild Pain / Temp above 100 Stop: 09/16/17 15:39 Al Hydrox/Mg Hydrox/Simethicone (Maalox) 30 ml PO Q4HR PRN PRN Reason: GI DISTRESS Stop: 09/16/17 15:39 Chlorpromazine (Thorazine) 100 mg PO QID [facility] PRN Reason: Protocol Stop: 10/22/17 12:59 Last Admin: 08/26/17 12:13 Dose: 100 mg Clonazepam (Klonopin) 2 mg PO BID [facility] PRN Reason: Protocol Stop: 09/17/17 08:59 Last Admin: 08/26/17 08:18 Dose: 2 mg Docusate Sodium (Colace) 100 mg PO BID [facility] Stop: 09/17/17 08:59 Last Admin: 08/26/17 11:32 Dose: 100 mg Famotidine (Pepcid) 20 mg PO DAILY [facility] Stop: 09/17/17 08:59 Last Admin: 08/26/17 11:32 Dose: 20 mg Ferrous Sulfate (Iron) 325 mg PO DAILY [facility] Stop: 09/17/17 08:59 Last Admin: 08/26/17 08:17 Dose: 325 mg Levothyroxine Sodium (Synthroid) 0.05 mg PO QDAC [facility] Stop: 09/17/17 07:29 Last Admin: 08/26/17 06:51 Dose: 0.05 mg Magnesium Hydroxide (Milk Of Magnesia) 30 ml PO DAILY PRN PRN Reason: Constipation Stop: 09/16/17 19:35 Valproate Sodium (Depakene) 500 mg PO BID [facility] PRN Reason: Protocol Stop: 09/17/17 10:59 Last Admin: 08/25/17 16:18 Dose: 500 mg Zolpidem Tartrate (Ambien) 5 mg PO HS PRN PRN Reason: Insomnia Stop: 09/16/17 15:39 Last Admin: 08/25/17 20:38 Dose: 5 mg General: demented HEENT: NC/AT, PERRLA, EOMI, anicteric sclerae, throat clear Neck: Supple, No JVD, No thyromegaly, +2 carotid pulse wo bruit, No LAD Lungs: CTAB Cardiovascular: Normal S1, Normal S2, without murmur Abdomen: non-tender, non-distended Extremities: rash Neurological: no change - Procedures Procedures: Procedures Procedure Code Date INDIVID PSYCHOTHERAP NEC 94.39 06/08/08 OTHER GROUP THERAPY 94.44 06/08/08 Internal Medicine Assmt/Plan - Assessment Assessment: 1.HYPOTHYROIDISM 2.DEMENTIA. 3.PSYCHOSIS - Plan Plan: CONTINUE ON CURRENT MEDICATION AND DIET. Nutritional Asmnt/Malnutr-PDOC - Dietary Evaluation Malnutrition Findings (Please click <Entered> for more info): Nutritional Asmnt/Malnutrition Start: 07/22/17 16: 21 Text: Status: Complete Freq: Document 07/22/17 16:21 [facility] (Rec: 07/22/17 16:35 [id number]) Nutritional Asmnt/Malnutrition Patient General Information Nutritional Screening Moderate Risk Diagnosis psychosis Pertinent Medical Hx/Surgical Hx hypothyroidism, chronic anemia , chronic constipation, dementia, psychosis Subjective Information Pt seen lying in bed at time of visit, confused. Pt reported good appetite, would like coffee with meal tray. Per EMR PO intake 1005. Current Diet Order/ Nutrition Support regular Pertinent Medications coalce, Iron, synthroid, seroquel Pertinent Labs 07/18 Na 133, glucose 128, A1c 6.8 Nutritional Hx/Data Height 1.6 m Height (Calculated Centimeters) 160.0 Current Weight (lbs) 93.894 kg Weight (Calculated Kilograms) 93.9 Weight (Calculated Grams) 23251.6 [place] Body Weight 115 Body Mass Index (BMI) 36.6 Weight Status Obese GI Symptoms GI Symptoms None Last BM 07/22 Difficult in: None Skin Integrity/Comment: blackened to left dorsal medical foot Current %PO Good (75-100%) Estimated Nutritional Goals BEE in Kcals: Using Current wt Calories/Kcals/Kg 25-30 Kcals Calculated 4690-3217 Protein: Using Current wt Protein g/k Protein Calculated 63 Fluid: ml 1575-1890ml (1ml/kcal) Nutritional Problem No current Nutrition Prob Problem N/A Malnutrition Alert Protein-Calorie Malnutrition N/A Is there a minimum of two criteria No selected? Query Text:Check all the applicable criteria. A minimum of two criteria are recommended for diagnosis of either severe or non-severe malnutrition. Intervention/Recommendation Comments 1. Continue with current diet as ordered. 2. Monitor PO intake, wt, labs and skin integrity 3. F/U as low risk in 7 days, 07/29 Expected Outcomes/Goals Expected Outcomes/Goals 1. PO intake to meet at least 75% of nutritional needs. 2. Wt stability, skin to remain intact, labs to approach WNL.
[2017-08-26] MEDS ORDERED: Haloperidol Lactate 5 mg/mL 1mL Vial IM ONE (13:56)
--- NOTE | 2017-08-27 01:11 | Progress Notes ---
DATE: 08/26/2017 Case was discussed with staff of the patient, reviewed records. The patient started acting out again and yelling and screaming. She is developmentally disabled and hard to redirect. She is sleeping well and eating well. She is asking for coffee, unable to carry on a reasonable conversation. Working on placement for this patient. No side effects with the medication, no sedation, no nausea, and no extrapyramidal symptoms. We will continue to work with the patient in group therapy, milieu therapy, and adjust the medications as needed. JOB# [id number]
[2017-08-27] MEDS: Levothyroxine 0.05 Mg Tab PO SCH (07:00)
[2017-08-27] MEDS: Ferrous Sulfate 325 MG TAB PO SCH (08:26)
[2017-08-27] MEDS: Multivitamin w/ Minerals Tab PO SCH (08:26)
--- NOTE | 2017-08-27 23:48 | Internal Medicine Prog Note ---
Internal Medicine Subjective - Subjective Service Date: 08/27/17 Patient seen and examined:: without staff Patient is:: verbal, in wheelchair, confused Per staff patient has:: no adverse event (SHE HAS REDNESS OF LEFT SHOLDER SKIN) Internal Medicine Objective - Results Result Diagrams: 07/18/17 12:15 07/18/17 12:15 Recent Labs: Laboratory Last Values WBC 7.4 Th/cmm (4.8-10.8) 07/18/17 12:15 RBC 4.12 Mil/cmm (3.80-5.10) 07/18/17 12:15 Hgb 11.5 gm/dL (12-16) L 07/18/17 12:15 Hct 34.7 % (41.0-60) L 07/18/17 12:15 MCV 84.3 fl (81-100) 07/18/17 12:15 MCH 28.0 pg (27.0-31.0) 07/18/17 12:15 MCHC Differential 33.2 pg (28.0-36.0) 07/18/17 12:15 RDW 15.9 % (11.5-20.0) 07/18/17 12:15 Plt Count 186 Th/cmm (150-400) 07/18/17 12:15 MPV 8.4 fl 07/18/17 12:15 Neutrophils % 61.1 % (40.0-80.0) 07/18/17 12:15 Lymphocytes % 23.7 % (20.0-50.0) 07/18/17 12:15 Monocytes % 13.2 % (2.0-10.0) H 07/18/17 12:15 Eosinophils % 1.3 % (0.0-5.0) 07/18/17 12:15 Basophils % 0.7 % (0.0-2.0) 07/18/17 12:15 Sodium 133 mEq/L (136-145) L 07/18/17 12:15 Potassium 4.0 mEq/L (3.5-5.1) 07/18/17 12:15 Chloride 98 mEq/L (98-107) 07/18/17 12:15 Carbon Dioxide 27.8 mEq/L (21.0-31.0) 07/18/17 12:15 Anion Gap 11.2 (7.0-16.0) 07/18/17 12:15 BUN 10 mg/dL (7-25) 07/18/17 12:15 Creatinine 0.6 mg/dL (0.6-1.2) 07/18/17 12:15 Est GFR ( Amer) > 60.0 ml/min (>90) 07/18/17 12:15 Est GFR (Non-Af Amer) > 60.0 ml/min 07/18/17 12:15 BUN/Creatinine Ratio 16.7 07/18/17 12:15 Glucose 128 mg/dL (70-105) H 07/18/17 12:15 POC Glucose 116 MG/DL (70 - 105) H 07/30/17 16:06 Hemoglobin A1c % 6.8 % (4.0-6.0) H 07/18/17 12:15 Calcium 9.2 mg/dL (8.6-10.3) 07/18/17 12:15 Total Bilirubin 0.2 mg/dL (0.3-1.0) L 07/18/17 12:15 AST 12 U/L (13-39) L 07/18/17 12:15 ALT 8 U/L (7-52) 07/18/17 12:15 Alkaline Phosphatase 153 U/L (34-104) H 07/18/17 12:15 Total Protein 6.7 gm/dL (6.0-8.3) 07/18/17 12:15 Albumin 3.7 gm/dL (3.7-5.3) 07/18/17 12:15 Globulin 3.0 gm/dL 07/18/17 12:15 Albumin/Globulin Ratio 1.2 (1.0-1.8) 07/18/17 12:15 Triglycerides 61 mg/dL (<150) 07/18/17 12:15 Cholesterol 207 mg/dL (<200) H 07/18/17 12:15 LDL Cholesterol Direct 127 mg/dL (75-193) 07/18/17 12:15 HDL Cholesterol 61 mg/dL (23-92) 07/18/17 12:15 TSH 2.79 uIU/ml (0.34-5.60) 07/18/17 12:15 Salicylates < 25.0 mg/L (30.0-100.0) L 07/18/17 12:15 Acetaminophen < 10.0 ug/mL (10.0-30.0) L 07/18/17 12:15 Valproic Acid 53.3 ug/mL (50.0-100.0) 08/12/17 13:10 Ethyl Alcohol < 10 mg/dL (0-10) 07/18/17 12:15 RPR NONREACTIVE (NONREACTIVE) 07/18/17 12:15 - Physical Exam Vitals and I&O: Vital Signs Temp 97.4 F 08/27/17 14:00 Pulse 70 08/27/17 14:00 Resp 19 08/27/17 14:00 BP 120/93 08/27/17 14:00 Pulse Ox 96 08/27/17 14:00 Intake & Output 08/27/17 08/27/17 08/28/17 06:59 18:59 06:59 Intake Total 240 1600 120 Balance 240 1600 120 Intake: Oral 240 1600 120 Other: # Voids 2 3 3 # Bowel Movements 0 0 0 Active Medications: Current Medications Acetaminophen (Tylenol) 650 mg PO Q4HR PRN PRN Reason: Mild Pain / Temp above 100 Stop: 09/16/17 15:39 Al Hydrox/Mg Hydrox/Simethicone (Maalox) 30 ml PO Q4HR PRN PRN Reason: GI DISTRESS Stop: 09/16/17 15:39 Chlorpromazine (Thorazine) 100 mg PO QID [facility] Stop: 10/25/17 16:59 Last Admin: 08/27/17 20:21 Dose: 100 mg Clonazepam (Klonopin) 2 mg PO BID [facility] PRN Reason: Protocol Stop: 09/17/17 08:59 Last Admin: 08/27/17 16:44 Dose: 2 mg Docusate Sodium (Colace) 100 mg PO BID [facility] Stop: 09/17/17 08:59 Last Admin: 08/27/17 16:47 Dose: 100 mg Famotidine (Pepcid) 20 mg PO DAILY [facility] Stop: 09/17/17 08:59 Last Admin: 08/27/17 08:26 Dose: 20 mg Ferrous Sulfate (Iron) 325 mg PO DAILY [facility] Stop: 09/17/17 08:59 Last Admin: 08/27/17 08:26 Dose: 325 mg Levothyroxine Sodium (Synthroid) 0.05 mg PO QDAC [facility] Stop: 09/17/17 07:29 Last Admin: 08/27/17 07:00 Dose: 0.05 mg Magnesium Hydroxide (Milk Of Magnesia) 30 ml PO DAILY PRN PRN Reason: Constipation Stop: 09/16/17 19:35 Valproate Sodium (Depakene) 500 mg PO BID [facility] PRN Reason: Protocol Stop: 09/17/17 10:59 Last Admin: 08/27/17 16:46 Dose: 500 mg Zolpidem Tartrate (Ambien) 5 mg PO HS PRN PRN Reason: Insomnia Stop: 09/16/17 15:39 Last Admin: 08/27/17 20:21 Dose: 5 mg General: demented HEENT: NC/AT, PERRLA, EOMI, anicteric sclerae, throat clear Neck: Supple, No JVD, No thyromegaly, +2 carotid pulse wo bruit, No LAD Lungs: CTAB Cardiovascular: Normal S1, Normal S2, without murmur Abdomen: non-tender, non-distended Extremities: rash Neurological: no change - Procedures Procedures: Procedures Procedure Code Date INDIVID PSYCHOTHERAP NEC 94.39 06/08/08 OTHER GROUP THERAPY 94.44 06/08/08 Internal Medicine Assmt/Plan - Assessment Assessment: 1.HYPOTHYROIDISM 2.DEMENTIA. 3.PSYCHOSIS - Plan Plan: CONTINUE ON CURRENT MEDICATION AND DIET. Nutritional Asmnt/Malnutr-PDOC - Dietary Evaluation Malnutrition Findings (Please click <Entered> for more info): Nutritional Asmnt/Malnutrition Start: 07/22/17 16: 21 Text: Status: Complete Freq: Document 07/22/17 16:21 [facility] (Rec: 07/22/17 16:35 [id number]) Nutritional Asmnt/Malnutrition Patient General Information Nutritional Screening Moderate Risk Diagnosis psychosis Pertinent Medical Hx/Surgical Hx hypothyroidism, chronic anemia , chronic constipation, dementia, psychosis Subjective Information Pt seen lying in bed at time of visit, confused. Pt reported good appetite, would like coffee with meal tray. Per EMR PO intake 1005. Current Diet Order/ Nutrition Support regular Pertinent Medications coalce, Iron, synthroid, seroquel Pertinent Labs 07/18 Na 133, glucose 128, A1c 6.8 Nutritional Hx/Data Height 1.6 m Height (Calculated Centimeters) 160.0 Current Weight (lbs) 93.894 kg Weight (Calculated Kilograms) 93.9 Weight (Calculated Grams) 05886.6 [place] Body Weight 115 Body Mass Index (BMI) 36.6 Weight Status Obese GI Symptoms GI Symptoms None Last BM 07/22 Difficult in: None Skin Integrity/Comment: blackened to left dorsal medical foot Current %PO Good (75-100%) Estimated Nutritional Goals BEE in Kcals: Using Current wt Calories/Kcals/Kg 25-30 Kcals Calculated 9256-6332 Protein: Using Current wt Protein g/k Protein Calculated 63 Fluid: ml 1575-1890ml (1ml/kcal) Nutritional Problem No current Nutrition Prob Problem N/A Malnutrition Alert Protein-Calorie Malnutrition N/A Is there a minimum of two criteria No selected? Query Text:Check all the applicable criteria. A minimum of two criteria are recommended for diagnosis of either severe or non-severe malnutrition. Intervention/Recommendation Comments 1. Continue with current diet as ordered. 2. Monitor PO intake, wt, labs and skin integrity 3. F/U as low risk in 7 days, 07/29 Expected Outcomes/Goals Expected Outcomes/Goals 1. PO intake to meet at least 75% of nutritional needs. 2. Wt stability, skin to remain intact, labs to approach WNL.
--- NOTE | 2017-08-28 00:41 | Progress Notes ---
DATE: 08/27/2017 SUBJECTIVE: Case was discussed with staff of the patient and reviewed records. The patient was agitated this morning, yelling and screaming, continues to have poor insight, continues to be unpredictable, impulsive, needing redirection, unable to participate in meaningful conversation or make a safe plan for self-care. PLAN: She is compliant with the medication with no side effects, no sedation, no nausea, and no extrapyramidal symptoms. We will continue to work with the patient in group therapy, milieu therapy, and adjusting medications as needed. JOB# [id number]
[2017-08-28] MEDS: Levothyroxine 0.05 Mg Tab PO SCH (06:43)
[2017-08-28] MEDS: Multivitamin w/ Minerals Tab PO SCH (08:39)
[2017-08-28] MEDS: Ferrous Sulfate 325 MG TAB PO SCH (08:39)
--- NOTE | 2017-08-28 22:25 | Internal Medicine Prog Note ---
Internal Medicine Subjective - Subjective Service Date: 08/28/17 Patient seen and examined:: with staff (SHE STILL CONFUSED) Patient is:: verbal, in wheelchair, confused Per staff patient has:: no adverse event (SHE HAS REDNESS OF LEFT SHOLDER SKIN) Internal Medicine Objective - Results Result Diagrams: 07/18/17 12:15 07/18/17 12:15 Recent Labs: Laboratory Last Values WBC 7.4 Th/cmm (4.8-10.8) 07/18/17 12:15 RBC 4.12 Mil/cmm (3.80-5.10) 07/18/17 12:15 Hgb 11.5 gm/dL (12-16) L 07/18/17 12:15 Hct 34.7 % (41.0-60) L 07/18/17 12:15 MCV 84.3 fl (81-100) 07/18/17 12:15 MCH 28.0 pg (27.0-31.0) 07/18/17 12:15 MCHC Differential 33.2 pg (28.0-36.0) 07/18/17 12:15 RDW 15.9 % (11.5-20.0) 07/18/17 12:15 Plt Count 186 Th/cmm (150-400) 07/18/17 12:15 MPV 8.4 fl 07/18/17 12:15 Neutrophils % 61.1 % (40.0-80.0) 07/18/17 12:15 Lymphocytes % 23.7 % (20.0-50.0) 07/18/17 12:15 Monocytes % 13.2 % (2.0-10.0) H 07/18/17 12:15 Eosinophils % 1.3 % (0.0-5.0) 07/18/17 12:15 Basophils % 0.7 % (0.0-2.0) 07/18/17 12:15 Sodium 133 mEq/L (136-145) L 07/18/17 12:15 Potassium 4.0 mEq/L (3.5-5.1) 07/18/17 12:15 Chloride 98 mEq/L (98-107) 07/18/17 12:15 Carbon Dioxide 27.8 mEq/L (21.0-31.0) 07/18/17 12:15 Anion Gap 11.2 (7.0-16.0) 07/18/17 12:15 BUN 10 mg/dL (7-25) 07/18/17 12:15 Creatinine 0.6 mg/dL (0.6-1.2) 07/18/17 12:15 Est GFR ( Amer) > 60.0 ml/min (>90) 07/18/17 12:15 Est GFR (Non-Af Amer) > 60.0 ml/min 07/18/17 12:15 BUN/Creatinine Ratio 16.7 07/18/17 12:15 Glucose 128 mg/dL (70-105) H 07/18/17 12:15 POC Glucose 116 MG/DL (70 - 105) H 07/30/17 16:06 Hemoglobin A1c % 6.8 % (4.0-6.0) H 07/18/17 12:15 Calcium 9.2 mg/dL (8.6-10.3) 07/18/17 12:15 Total Bilirubin 0.2 mg/dL (0.3-1.0) L 07/18/17 12:15 AST 12 U/L (13-39) L 07/18/17 12:15 ALT 8 U/L (7-52) 07/18/17 12:15 Alkaline Phosphatase 153 U/L (34-104) H 07/18/17 12:15 Total Protein 6.7 gm/dL (6.0-8.3) 07/18/17 12:15 Albumin 3.7 gm/dL (3.7-5.3) 07/18/17 12:15 Globulin 3.0 gm/dL 07/18/17 12:15 Albumin/Globulin Ratio 1.2 (1.0-1.8) 07/18/17 12:15 Triglycerides 61 mg/dL (<150) 07/18/17 12:15 Cholesterol 207 mg/dL (<200) H 07/18/17 12:15 LDL Cholesterol Direct 127 mg/dL (75-193) 07/18/17 12:15 HDL Cholesterol 61 mg/dL (23-92) 07/18/17 12:15 TSH 2.79 uIU/ml (0.34-5.60) 07/18/17 12:15 Salicylates < 25.0 mg/L (30.0-100.0) L 07/18/17 12:15 Acetaminophen < 10.0 ug/mL (10.0-30.0) L 07/18/17 12:15 Valproic Acid 53.3 ug/mL (50.0-100.0) 08/12/17 13:10 Ethyl Alcohol < 10 mg/dL (0-10) 07/18/17 12:15 RPR NONREACTIVE (NONREACTIVE) 07/18/17 12:15 - Physical Exam Vitals and I&O: Vital Signs Temp 98.3 F 08/28/17 20:00 Pulse 86 08/28/17 20:00 Resp 20 08/28/17 20:00 BP 108/68 08/28/17 20:00 Pulse Ox 98 08/28/17 20:00 Intake & Output 08/28/17 08/28/17 08/29/17 06:59 18:59 06:59 Intake Total 240 1000 Balance 240 1000 Intake: Oral 240 1000 Other: # Voids 2 4 # Bowel Movements 0 1 Active Medications: Current Medications Acetaminophen (Tylenol) 650 mg PO Q4HR PRN PRN Reason: Mild Pain / Temp above 100 Stop: 09/16/17 15:39 Al Hydrox/Mg Hydrox/Simethicone (Maalox) 30 ml PO Q4HR PRN PRN Reason: GI DISTRESS Stop: 09/16/17 15:39 Chlorpromazine (Thorazine) 100 mg PO QID [facility] Stop: 10/25/17 16:59 Last Admin: 08/28/17 20:26 Dose: 100 mg Clonazepam (Klonopin) 2 mg PO BID [facility] PRN Reason: Protocol Stop: 09/17/17 08:59 Last Admin: 08/28/17 17:37 Dose: 2 mg Docusate Sodium (Colace) 100 mg PO BID [facility] Stop: 09/17/17 08:59 Last Admin: 08/28/17 17:38 Dose: 100 mg Famotidine (Pepcid) 20 mg PO DAILY [facility] Stop: 09/17/17 08:59 Last Admin: 08/28/17 08:39 Dose: 20 mg Ferrous Sulfate (Iron) 325 mg PO DAILY [facility] Stop: 09/17/17 08:59 Last Admin: 08/28/17 08:39 Dose: 325 mg Levothyroxine Sodium (Synthroid) 0.05 mg PO QDAC [facility] Stop: 09/17/17 07:29 Last Admin: 08/28/17 06:43 Dose: 0.05 mg Magnesium Hydroxide (Milk Of Magnesia) 30 ml PO DAILY PRN PRN Reason: Constipation Stop: 09/16/17 19:35 Valproate Sodium (Depakene) 500 mg PO BID [facility] PRN Reason: Protocol Stop: 09/17/17 10:59 Last Admin: 08/28/17 17:37 Dose: 500 mg Zolpidem Tartrate (Ambien) 5 mg PO HS PRN PRN Reason: Insomnia Stop: 09/16/17 15:39 Last Admin: 08/28/17 20:26 Dose: 5 mg General: demented HEENT: NC/AT, PERRLA, EOMI, anicteric sclerae, throat clear Neck: Supple, No JVD, No thyromegaly, +2 carotid pulse wo bruit, No LAD Lungs: CTAB Cardiovascular: Normal S1, Normal S2, without murmur Abdomen: non-tender, non-distended Extremities: rash Neurological: no change - Procedures Procedures: Procedures Procedure Code Date INDIVID PSYCHOTHERAP NEC 94.39 06/08/08 OTHER GROUP THERAPY 94.44 06/08/08 Internal Medicine Assmt/Plan - Assessment Assessment: 1.HYPOTHYROIDISM 2.DEMENTIA. 3.PSYCHOSIS - Plan Plan: CONTINUE ON CURRENT MEDICATION AND DIET. Nutritional Asmnt/Malnutr-PDOC - Dietary Evaluation Malnutrition Findings (Please click <Entered> for more info): Nutritional Asmnt/Malnutrition Start: 07/22/17 16: 21 Text: Status: Complete Freq: Document 07/22/17 16:21 [facility] (Rec: 07/22/17 16:35 [email or web address]) Nutritional Asmnt/Malnutrition Patient General Information Nutritional Screening Moderate Risk Diagnosis psychosis Pertinent Medical Hx/Surgical Hx hypothyroidism, chronic anemia , chronic constipation, dementia, psychosis Subjective Information Pt seen lying in bed at time of visit, confused. Pt reported good appetite, would like coffee with meal tray. Per EMR PO intake 1005. Current Diet Order/ Nutrition Support regular Pertinent Medications coalce, Iron, synthroid, seroquel Pertinent Labs 07/18 Na 133, glucose 128, A1c 6.8 Nutritional Hx/Data Height 1.6 m Height (Calculated Centimeters) 160.0 Current Weight (lbs) 93.894 kg Weight (Calculated Kilograms) 93.9 Weight (Calculated Grams) 86273.6 [place] Body Weight 115 Body Mass Index (BMI) 36.6 Weight Status Obese GI Symptoms GI Symptoms None Last BM 07/22 Difficult in: None Skin Integrity/Comment: blackened to left dorsal medical foot Current %PO Good (75-100%) Estimated Nutritional Goals BEE in Kcals: Using Current wt Calories/Kcals/Kg 25-30 Kcals Calculated 7631-2650 Protein: Using Current wt Protein g/k Protein Calculated 63 Fluid: ml 1575-1890ml (1ml/kcal) Nutritional Problem No current Nutrition Prob Problem N/A Malnutrition Alert Protein-Calorie Malnutrition N/A Is there a minimum of two criteria No selected? Query Text:Check all the applicable criteria. A minimum of two criteria are recommended for diagnosis of either severe or non-severe malnutrition. Intervention/Recommendation Comments 1. Continue with current diet as ordered. 2. Monitor PO intake, wt, labs and skin integrity 3. F/U as low risk in 7 days, 07/29 Expected Outcomes/Goals Expected Outcomes/Goals 1. PO intake to meet at least 75% of nutritional needs. 2. Wt stability, skin to remain intact, labs to approach WNL.
--- NOTE | 2017-08-29 00:29 | Progress Notes ---
DATE: 08/28/2017 Case discussed with staff of the patient with treatment plans and goals. The patient continues to stay same with episodes of crying, yelling, screaming, needing redirection. Continues to have poor insight, unable to make safe plan for self-care. We are still waiting on placement for this patient. She continues to get in emergency medication and will continue outpatient group therapy, milieu therapy, and adjust medications as needed. [facility]# [id number]
[2017-08-29] MEDS: Levothyroxine 0.05 Mg Tab PO SCH (06:39)
[2017-08-29] MEDS: Ferrous Sulfate 325 MG TAB PO SCH (08:15)
[2017-08-29] MEDS: Multivitamin w/ Minerals Tab PO SCH (08:15)
--- NOTE | 2017-08-29 15:48 | Internal Medicine Prog Note ---
Internal Medicine Subjective - Subjective Service Date: 08/29/17 Patient seen and examined:: with staff Patient is:: verbal, in wheelchair, confused Per staff patient has:: no adverse event (SHE HAS REDNESS OF LEFT SHOLDER SKIN) Internal Medicine Objective - Results Result Diagrams: 07/18/17 12:15 07/18/17 12:15 Recent Labs: Laboratory Last Values WBC 7.4 Th/cmm (4.8-10.8) 07/18/17 12:15 RBC 4.12 Mil/cmm (3.80-5.10) 07/18/17 12:15 Hgb 11.5 gm/dL (12-16) L 07/18/17 12:15 Hct 34.7 % (41.0-60) L 07/18/17 12:15 MCV 84.3 fl (81-100) 07/18/17 12:15 MCH 28.0 pg (27.0-31.0) 07/18/17 12:15 MCHC Differential 33.2 pg (28.0-36.0) 07/18/17 12:15 RDW 15.9 % (11.5-20.0) 07/18/17 12:15 Plt Count 186 Th/cmm (150-400) 07/18/17 12:15 MPV 8.4 fl 07/18/17 12:15 Neutrophils % 61.1 % (40.0-80.0) 07/18/17 12:15 Lymphocytes % 23.7 % (20.0-50.0) 07/18/17 12:15 Monocytes % 13.2 % (2.0-10.0) H 07/18/17 12:15 Eosinophils % 1.3 % (0.0-5.0) 07/18/17 12:15 Basophils % 0.7 % (0.0-2.0) 07/18/17 12:15 Sodium 133 mEq/L (136-145) L 07/18/17 12:15 Potassium 4.0 mEq/L (3.5-5.1) 07/18/17 12:15 Chloride 98 mEq/L (98-107) 07/18/17 12:15 Carbon Dioxide 27.8 mEq/L (21.0-31.0) 07/18/17 12:15 Anion Gap 11.2 (7.0-16.0) 07/18/17 12:15 BUN 10 mg/dL (7-25) 07/18/17 12:15 Creatinine 0.6 mg/dL (0.6-1.2) 07/18/17 12:15 Est GFR ( Amer) > 60.0 ml/min (>90) 07/18/17 12:15 Est GFR (Non-Af Amer) > 60.0 ml/min 07/18/17 12:15 BUN/Creatinine Ratio 16.7 07/18/17 12:15 Glucose 128 mg/dL (70-105) H 07/18/17 12:15 POC Glucose 116 MG/DL (70 - 105) H 07/30/17 16:06 Hemoglobin A1c % 6.8 % (4.0-6.0) H 07/18/17 12:15 Calcium 9.2 mg/dL (8.6-10.3) 07/18/17 12:15 Total Bilirubin 0.2 mg/dL (0.3-1.0) L 07/18/17 12:15 AST 12 U/L (13-39) L 07/18/17 12:15 ALT 8 U/L (7-52) 07/18/17 12:15 Alkaline Phosphatase 153 U/L (34-104) H 07/18/17 12:15 Total Protein 6.7 gm/dL (6.0-8.3) 07/18/17 12:15 Albumin 3.7 gm/dL (3.7-5.3) 07/18/17 12:15 Globulin 3.0 gm/dL 07/18/17 12:15 Albumin/Globulin Ratio 1.2 (1.0-1.8) 07/18/17 12:15 Triglycerides 61 mg/dL (<150) 07/18/17 12:15 Cholesterol 207 mg/dL (<200) H 07/18/17 12:15 LDL Cholesterol Direct 127 mg/dL (75-193) 07/18/17 12:15 HDL Cholesterol 61 mg/dL (23-92) 07/18/17 12:15 TSH 2.79 uIU/ml (0.34-5.60) 07/18/17 12:15 Salicylates < 25.0 mg/L (30.0-100.0) L 07/18/17 12:15 Acetaminophen < 10.0 ug/mL (10.0-30.0) L 07/18/17 12:15 Valproic Acid 53.3 ug/mL (50.0-100.0) 08/12/17 13:10 Ethyl Alcohol < 10 mg/dL (0-10) 07/18/17 12:15 RPR NONREACTIVE (NONREACTIVE) 07/18/17 12:15 - Physical Exam Vitals and I&O: Vital Signs Temp 98.2 F 08/29/17 06:13 Pulse 80 08/29/17 06:13 Resp 20 08/29/17 06:13 BP 110/70 08/29/17 06:13 Pulse Ox 98 08/29/17 06:13 Intake & Output 08/28/17 08/29/17 08/29/17 18:59 06:59 18:59 Intake Total 1000 120 Balance 1000 120 Intake: Oral 1000 120 Other: # Voids 4 3 # Bowel Movements 1 Active Medications: Current Medications Acetaminophen (Tylenol) 650 mg PO Q4HR PRN PRN Reason: Mild Pain / Temp above 100 Stop: 09/16/17 15:39 Al Hydrox/Mg Hydrox/Simethicone (Maalox) 30 ml PO Q4HR PRN PRN Reason: GI DISTRESS Stop: 09/16/17 15:39 Chlorpromazine (Thorazine) 100 mg PO QID [facility] Stop: 10/25/17 16:59 Last Admin: 08/29/17 14:02 Dose: Not Given Clonazepam (Klonopin) 2 mg PO BID [facility] PRN Reason: Protocol Stop: 09/17/17 08:59 Last Admin: 08/29/17 08:15 Dose: 2 mg Docusate Sodium (Colace) 100 mg PO BID [facility] Stop: 09/17/17 08:59 Last Admin: 08/29/17 08:15 Dose: 100 mg Famotidine (Pepcid) 20 mg PO DAILY [facility] Stop: 09/17/17 08:59 Last Admin: 08/29/17 08:16 Dose: 20 mg Ferrous Sulfate (Iron) 325 mg PO DAILY [facility] Stop: 09/17/17 08:59 Last Admin: 08/29/17 08:15 Dose: 325 mg Levothyroxine Sodium (Synthroid) 0.05 mg PO QDAC [facility] Stop: 09/17/17 07:29 Last Admin: 08/29/17 06:39 Dose: 0.05 mg Magnesium Hydroxide (Milk Of Magnesia) 30 ml PO DAILY PRN PRN Reason: Constipation Stop: 09/16/17 19:35 Valproate Sodium (Depakene) 500 mg PO BID [facility] PRN Reason: Protocol Stop: 09/17/17 10:59 Last Admin: 08/29/17 08:16 Dose: 500 mg Zolpidem Tartrate (Ambien) 5 mg PO HS PRN PRN Reason: Insomnia Stop: 09/16/17 15:39 Last Admin: 08/28/17 20:26 Dose: 5 mg General: demented HEENT: NC/AT, PERRLA, EOMI, anicteric sclerae, throat clear Neck: Supple, No JVD, No thyromegaly, +2 carotid pulse wo bruit, No LAD Lungs: CTAB Cardiovascular: Normal S1, Normal S2, without murmur Abdomen: non-tender, non-distended Extremities: rash Neurological: no change - Procedures Procedures: Procedures Procedure Code Date INDIVID PSYCHOTHERAP NEC 94.39 06/08/08 OTHER GROUP THERAPY 94.44 06/08/08 Internal Medicine Assmt/Plan - Assessment Assessment: 1.HYPOTHYROIDISM 2.DEMENTIA. 3.PSYCHOSIS - Plan Plan: CONTINUE ON CURRENT MEDICATION AND DIET. Nutritional Asmnt/Malnutr-PDOC - Dietary Evaluation Malnutrition Findings (Please click <Entered> for more info): Nutritional Asmnt/Malnutrition Start: 07/22/17 16: 21 Text: Status: Complete Freq: Document 07/22/17 16:21 [facility] (Rec: 07/22/17 16:35 [facility] [id number]) Nutritional Asmnt/Malnutrition Patient General Information Nutritional Screening Moderate Risk Diagnosis psychosis Pertinent Medical Hx/Surgical Hx hypothyroidism, chronic anemia , chronic constipation, dementia, psychosis Subjective Information Pt seen lying in bed at time of visit, confused. Pt reported good appetite, would like coffee with meal tray. Per EMR PO intake 1005. Current Diet Order/ Nutrition Support regular Pertinent Medications coalce, Iron, synthroid, seroquel Pertinent Labs 07/18 Na 133, glucose 128, A1c 6.8 Nutritional Hx/Data Height 1.6 m Height (Calculated Centimeters) 160.0 Current Weight (lbs) 93.894 kg Weight (Calculated Kilograms) 93.9 Weight (Calculated Grams) 34839.6 [place] Body Weight 115 Body Mass Index (BMI) 36.6 Weight Status Obese GI Symptoms GI Symptoms None Last BM 07/22 Difficult in: None Skin Integrity/Comment: blackened to left dorsal medical foot Current %PO Good (75-100%) Estimated Nutritional Goals BEE in Kcals: Using Current wt Calories/Kcals/Kg 25-30 Kcals Calculated 9807-9121 Protein: Using Current wt Protein g/k Protein Calculated 63 Fluid: ml 1575-1890ml (1ml/kcal) Nutritional Problem No current Nutrition Prob Problem N/A Malnutrition Alert Protein-Calorie Malnutrition N/A Is there a minimum of two criteria No selected? Query Text:Check all the applicable criteria. A minimum of two criteria are recommended for diagnosis of either severe or non-severe malnutrition. Intervention/Recommendation Comments 1. Continue with current diet as ordered. 2. Monitor PO intake, wt, labs and skin integrity 3. F/U as low risk in 7 days, 07/29 Expected Outcomes/Goals Expected Outcomes/Goals 1. PO intake to meet at least 75% of nutritional needs. 2. Wt stability, skin to remain intact, labs to approach WNL.
--- NOTE | 2017-08-29 22:00 | Progress Notes ---
DATE: 08/29/2017 Case was discussed with staff of the patient, reviewed records. The patient continues to have episodes of agitation and irritability, continues to have poor insight, unable to make a safe plan for self-care. She is developmentally disabled, but unpredictable, impulsive, needing redirection. Sleeping better, eating better. Waiting on placement and no side effects with the patient the medications, no sedation, no extrapyramidal symptoms. We will continue to work with the patient in group therapy, milieu therapy, and adjust the medications as needed. JOB# [id number]
[2017-08-30] MEDS: Levothyroxine 0.05 Mg Tab PO SCH (06:54)
[2017-08-30] MEDS: Ferrous Sulfate 325 MG TAB PO SCH (08:09)
[2017-08-30] MEDS: Multivitamin w/ Minerals Tab PO SCH (08:09)
--- NOTE | 2017-08-30 17:04 | Progress Notes ---
DATE: 08/30/2017 Case was discussed with staff of the patient, reviewed records. The patient continues to be irritable, continues to have poor insight, unable to make safe plan for self-care or participate in meaningful conversation, unpredictable, impulsive, needing redirection. Sleeping well, eating well. No suicidal ideation, no homicidal ideation; however, she is still labile with very poor insight and we will continue to work with the patient in group therapy, milieu therapy, adjust medication as needed. JOB# [id number]
--- NOTE | 2017-08-30 19:51 | Internal Medicine Prog Note ---
Internal Medicine Subjective - Subjective Service Date: 08/30/17 Patient seen and examined:: with staff Patient is:: verbal, in wheelchair, confused Per staff patient has:: no adverse event (SHE HAS REDNESS OF LEFT SHOLDER SKIN) Internal Medicine Objective - Results Result Diagrams: 07/18/17 12:15 07/18/17 12:15 Recent Labs: Laboratory Last Values WBC 7.4 Th/cmm (4.8-10.8) 07/18/17 12:15 RBC 4.12 Mil/cmm (3.80-5.10) 07/18/17 12:15 Hgb 11.5 gm/dL (12-16) L 07/18/17 12:15 Hct 34.7 % (41.0-60) L 07/18/17 12:15 MCV 84.3 fl (81-100) 07/18/17 12:15 MCH 28.0 pg (27.0-31.0) 07/18/17 12:15 MCHC Differential 33.2 pg (28.0-36.0) 07/18/17 12:15 RDW 15.9 % (11.5-20.0) 07/18/17 12:15 Plt Count 186 Th/cmm (150-400) 07/18/17 12:15 MPV 8.4 fl 07/18/17 12:15 Neutrophils % 61.1 % (40.0-80.0) 07/18/17 12:15 Lymphocytes % 23.7 % (20.0-50.0) 07/18/17 12:15 Monocytes % 13.2 % (2.0-10.0) H 07/18/17 12:15 Eosinophils % 1.3 % (0.0-5.0) 07/18/17 12:15 Basophils % 0.7 % (0.0-2.0) 07/18/17 12:15 Sodium 133 mEq/L (136-145) L 07/18/17 12:15 Potassium 4.0 mEq/L (3.5-5.1) 07/18/17 12:15 Chloride 98 mEq/L (98-107) 07/18/17 12:15 Carbon Dioxide 27.8 mEq/L (21.0-31.0) 07/18/17 12:15 Anion Gap 11.2 (7.0-16.0) 07/18/17 12:15 BUN 10 mg/dL (7-25) 07/18/17 12:15 Creatinine 0.6 mg/dL (0.6-1.2) 07/18/17 12:15 Est GFR ( Amer) > 60.0 ml/min (>90) 07/18/17 12:15 Est GFR (Non-Af Amer) > 60.0 ml/min 07/18/17 12:15 BUN/Creatinine Ratio 16.7 07/18/17 12:15 Glucose 128 mg/dL (70-105) H 07/18/17 12:15 POC Glucose 116 MG/DL (70 - 105) H 07/30/17 16:06 Hemoglobin A1c % 6.8 % (4.0-6.0) H 07/18/17 12:15 Calcium 9.2 mg/dL (8.6-10.3) 07/18/17 12:15 Total Bilirubin 0.2 mg/dL (0.3-1.0) L 07/18/17 12:15 AST 12 U/L (13-39) L 07/18/17 12:15 ALT 8 U/L (7-52) 07/18/17 12:15 Alkaline Phosphatase 153 U/L (34-104) H 07/18/17 12:15 Total Protein 6.7 gm/dL (6.0-8.3) 07/18/17 12:15 Albumin 3.7 gm/dL (3.7-5.3) 07/18/17 12:15 Globulin 3.0 gm/dL 07/18/17 12:15 Albumin/Globulin Ratio 1.2 (1.0-1.8) 07/18/17 12:15 Triglycerides 61 mg/dL (<150) 07/18/17 12:15 Cholesterol 207 mg/dL (<200) H 07/18/17 12:15 LDL Cholesterol Direct 127 mg/dL (75-193) 07/18/17 12:15 HDL Cholesterol 61 mg/dL (23-92) 07/18/17 12:15 TSH 2.79 uIU/ml (0.34-5.60) 07/18/17 12:15 Salicylates < 25.0 mg/L (30.0-100.0) L 07/18/17 12:15 Acetaminophen < 10.0 ug/mL (10.0-30.0) L 07/18/17 12:15 Valproic Acid 53.3 ug/mL (50.0-100.0) 08/12/17 13:10 Ethyl Alcohol < 10 mg/dL (0-10) 07/18/17 12:15 RPR NONREACTIVE (NONREACTIVE) 07/18/17 12:15 - Physical Exam Vitals and I&O: Vital Signs Temp 97.6 F 08/30/17 14:55 Pulse 90 08/30/17 14:55 Resp 20 08/30/17 14:55 BP 114/93 08/30/17 14:55 Pulse Ox 97 08/30/17 14:55 Intake & Output 08/30/17 08/30/17 08/31/17 06:59 18:59 06:59 Intake Total 1620 1500 Balance 1620 1500 Intake: Oral 1620 1500 Other: # Voids 3 4 Active Medications: Current Medications Acetaminophen (Tylenol) 650 mg PO Q4HR PRN PRN Reason: Mild Pain / Temp above 100 Stop: 09/16/17 15:39 Al Hydrox/Mg Hydrox/Simethicone (Maalox) 30 ml PO Q4HR PRN PRN Reason: GI DISTRESS Stop: 09/16/17 15:39 Chlorpromazine (Thorazine) 100 mg PO QID [facility] Stop: 10/25/17 16:59 Last Admin: 08/30/17 17:32 Dose: 100 mg Clonazepam (Klonopin) 2 mg PO BID [facility] PRN Reason: Protocol Stop: 09/17/17 08:59 Last Admin: 08/30/17 17:32 Dose: 2 mg Docusate Sodium (Colace) 100 mg PO BID [facility] Stop: 09/17/17 08:59 Last Admin: 08/30/17 17:32 Dose: 100 mg Famotidine (Pepcid) 20 mg PO DAILY [facility] Stop: 09/17/17 08:59 Last Admin: 08/30/17 08:09 Dose: 20 mg Ferrous Sulfate (Iron) 325 mg PO DAILY [facility] Stop: 09/17/17 08:59 Last Admin: 08/30/17 08:09 Dose: 325 mg Levothyroxine Sodium (Synthroid) 0.05 mg PO QDAC [facility] Stop: 09/17/17 07:29 Last Admin: 08/30/17 06:54 Dose: 0.05 mg Magnesium Hydroxide (Milk Of Magnesia) 30 ml PO DAILY PRN PRN Reason: Constipation Stop: 09/16/17 19:35 Valproate Sodium (Depakene) 500 mg PO BID [facility] PRN Reason: Protocol Stop: 09/17/17 10:59 Last Admin: 08/30/17 17:32 Dose: 500 mg Zolpidem Tartrate (Ambien) 5 mg PO HS PRN PRN Reason: Insomnia Stop: 09/16/17 15:39 Last Admin: 08/29/17 20:53 Dose: 5 mg General: demented HEENT: NC/AT, PERRLA, EOMI, anicteric sclerae, throat clear Neck: Supple, No JVD, No thyromegaly, +2 carotid pulse wo bruit, No LAD Lungs: CTAB Cardiovascular: Normal S1, Normal S2, without murmur Abdomen: non-tender, non-distended Extremities: rash Neurological: no change - Procedures Procedures: Procedures Procedure Code Date INDIVID PSYCHOTHERAP NEC 94.39 06/08/08 OTHER GROUP THERAPY 94.44 06/08/08 Internal Medicine Assmt/Plan - Assessment Assessment: 1.HYPOTHYROIDISM 2.DEMENTIA. 3.PSYCHOSIS - Plan Plan: CONTINUE ON CURRENT MEDICATION AND DIET. Nutritional Asmnt/Malnutr-PDOC - Dietary Evaluation Malnutrition Findings (Please click <Entered> for more info): Nutritional Asmnt/Malnutrition Start: 07/22/17 16: 21 Text: Status: Complete Freq: Document 07/22/17 16:21 [facility] (Rec: 07/22/17 16:35 [email or web address]) Nutritional Asmnt/Malnutrition Patient General Information Nutritional Screening Moderate Risk Diagnosis psychosis Pertinent Medical Hx/Surgical Hx hypothyroidism, chronic anemia , chronic constipation, dementia, psychosis Subjective Information Pt seen lying in bed at time of visit, confused. Pt reported good appetite, would like coffee with meal tray. Per EMR PO intake 1005. Current Diet Order/ Nutrition Support regular Pertinent Medications coalce, Iron, synthroid, seroquel Pertinent Labs 07/18 Na 133, glucose 128, A1c 6.8 Nutritional Hx/Data Height 1.6 m Height (Calculated Centimeters) 160.0 Current Weight (lbs) 93.894 kg Weight (Calculated Kilograms) 93.9 Weight (Calculated Grams) 59078.6 [place] Body Weight 115 Body Mass Index (BMI) 36.6 Weight Status Obese GI Symptoms GI Symptoms None Last BM 07/22 Difficult in: None Skin Integrity/Comment: blackened to left dorsal medical foot Current %PO Good (75-100%) Estimated Nutritional Goals BEE in Kcals: Using Current wt Calories/Kcals/Kg 25-30 Kcals Calculated 5445-8962 Protein: Using Current wt Protein g/k Protein Calculated 63 Fluid: ml 1575-1890ml (1ml/kcal) Nutritional Problem No current Nutrition Prob Problem N/A Malnutrition Alert Protein-Calorie Malnutrition N/A Is there a minimum of two criteria No selected? Query Text:Check all the applicable criteria. A minimum of two criteria are recommended for diagnosis of either severe or non-severe malnutrition. Intervention/Recommendation Comments 1. Continue with current diet as ordered. 2. Monitor PO intake, wt, labs and skin integrity 3. F/U as low risk in 7 days, 07/29 Expected Outcomes/Goals Expected Outcomes/Goals 1. PO intake to meet at least 75% of nutritional needs. 2. Wt stability, skin to remain intact, labs to approach WNL.
[2017-08-31] MEDS: Levothyroxine 0.05 Mg Tab PO SCH (06:40)
[2017-08-31] MEDS: Ferrous Sulfate 325 MG TAB PO SCH (08:18)
[2017-08-31] MEDS: Multivitamin w/ Minerals Tab PO SCH (08:19)
--- NOTE | 2017-08-31 16:07 | General Progress Note ---
Subjective - Review of Systems Service Date: 08/31/17 Subjective: resting comfortably no distress Objective - Results Result Diagrams: 07/18/17 12:15 07/18/17 12:15 Recent Labs: Laboratory Last Values WBC 7.4 Th/cmm (4.8-10.8) 07/18/17 12:15 RBC 4.12 Mil/cmm (3.80-5.10) 07/18/17 12:15 Hgb 11.5 gm/dL (12-16) L 07/18/17 12:15 Hct 34.7 % (41.0-60) L 07/18/17 12:15 MCV 84.3 fl (81-100) 07/18/17 12:15 MCH 28.0 pg (27.0-31.0) 07/18/17 12:15 MCHC Differential 33.2 pg (28.0-36.0) 07/18/17 12:15 RDW 15.9 % (11.5-20.0) 07/18/17 12:15 Plt Count 186 Th/cmm (150-400) 07/18/17 12:15 MPV 8.4 fl 07/18/17 12:15 Neutrophils % 61.1 % (40.0-80.0) 07/18/17 12:15 Lymphocytes % 23.7 % (20.0-50.0) 07/18/17 12:15 Monocytes % 13.2 % (2.0-10.0) H 07/18/17 12:15 Eosinophils % 1.3 % (0.0-5.0) 07/18/17 12:15 Basophils % 0.7 % (0.0-2.0) 07/18/17 12:15 Sodium 133 mEq/L (136-145) L 07/18/17 12:15 Potassium 4.0 mEq/L (3.5-5.1) 07/18/17 12:15 Chloride 98 mEq/L (98-107) 07/18/17 12:15 Carbon Dioxide 27.8 mEq/L (21.0-31.0) 07/18/17 12:15 Anion Gap 11.2 (7.0-16.0) 07/18/17 12:15 BUN 10 mg/dL (7-25) 07/18/17 12:15 Creatinine 0.6 mg/dL (0.6-1.2) 07/18/17 12:15 Est GFR ( Amer) > 60.0 ml/min (>90) 07/18/17 12:15 Est GFR (Non-Af Amer) > 60.0 ml/min 07/18/17 12:15 BUN/Creatinine Ratio 16.7 07/18/17 12:15 Glucose 128 mg/dL (70-105) H 07/18/17 12:15 POC Glucose 116 MG/DL (70 - 105) H 07/30/17 16:06 Hemoglobin A1c % 6.8 % (4.0-6.0) H 07/18/17 12:15 Calcium 9.2 mg/dL (8.6-10.3) 07/18/17 12:15 Total Bilirubin 0.2 mg/dL (0.3-1.0) L 07/18/17 12:15 AST 12 U/L (13-39) L 07/18/17 12:15 ALT 8 U/L (7-52) 07/18/17 12:15 Alkaline Phosphatase 153 U/L (34-104) H 07/18/17 12:15 Total Protein 6.7 gm/dL (6.0-8.3) 07/18/17 12:15 Albumin 3.7 gm/dL (3.7-5.3) 07/18/17 12:15 Globulin 3.0 gm/dL 07/18/17 12:15 Albumin/Globulin Ratio 1.2 (1.0-1.8) 07/18/17 12:15 Triglycerides 61 mg/dL (<150) 07/18/17 12:15 Cholesterol 207 mg/dL (<200) H 07/18/17 12:15 LDL Cholesterol Direct 127 mg/dL (75-193) 07/18/17 12:15 HDL Cholesterol 61 mg/dL (23-92) 07/18/17 12:15 TSH 2.79 uIU/ml (0.34-5.60) 07/18/17 12:15 Salicylates < 25.0 mg/L (30.0-100.0) L 07/18/17 12:15 Acetaminophen < 10.0 ug/mL (10.0-30.0) L 07/18/17 12:15 Valproic Acid 53.3 ug/mL (50.0-100.0) 08/12/17 13:10 Ethyl Alcohol < 10 mg/dL (0-10) 07/18/17 12:15 RPR NONREACTIVE (NONREACTIVE) 07/18/17 12:15 - Physical Exam Vitals and I&O: Vital Signs Temp 97.3 F 08/31/17 15:06 Pulse 78 08/31/17 15:06 Resp 19 08/31/17 15:06 BP 137/61 08/31/17 15:06 Pulse Ox 96 08/31/17 15:06 Intake & Output 08/30/17 08/31/17 08/31/17 18:59 06:59 18:59 Intake Total 1500 240 Balance 1500 240 Intake: Oral 1500 240 Other: # Voids 4 2 Active Medications: Current Medications Acetaminophen (Tylenol) 650 mg PO Q4HR PRN PRN Reason: Mild Pain / Temp above 100 Stop: 09/16/17 15:39 Al Hydrox/Mg Hydrox/Simethicone (Maalox) 30 ml PO Q4HR PRN PRN Reason: GI DISTRESS Stop: 09/16/17 15:39 Chlorpromazine (Thorazine) 100 mg PO QID [facility] Stop: 10/25/17 16:59 Last Admin: 08/31/17 13:17 Dose: 100 mg Clonazepam (Klonopin) 2 mg PO BID [facility] PRN Reason: Protocol Stop: 09/17/17 08:59 Last Admin: 08/31/17 08:19 Dose: 2 mg Docusate Sodium (Colace) 100 mg PO BID [facility] Stop: 09/17/17 08:59 Last Admin: 08/31/17 08:19 Dose: 100 mg Famotidine (Pepcid) 20 mg PO DAILY [facility] Stop: 09/17/17 08:59 Last Admin: 08/31/17 08:19 Dose: 20 mg Ferrous Sulfate (Iron) 325 mg PO DAILY [facility] Stop: 09/17/17 08:59 Last Admin: 08/31/17 08:18 Dose: 325 mg Levothyroxine Sodium (Synthroid) 0.05 mg PO QDAC [facility] Stop: 09/17/17 07:29 Last Admin: 08/31/17 06:40 Dose: 0.05 mg Magnesium Hydroxide (Milk Of Magnesia) 30 ml PO DAILY PRN PRN Reason: Constipation Stop: 09/16/17 19:35 Valproate Sodium (Depakene) 500 mg PO BID [facility] PRN Reason: Protocol Stop: 09/17/17 10:59 Last Admin: 08/31/17 08:21 Dose: 500 mg Zolpidem Tartrate (Ambien) 5 mg PO HS PRN PRN Reason: Insomnia Stop: 09/16/17 15:39 Last Admin: 08/30/17 20:48 Dose: 5 mg General: Alert, Cooperative HEENT: Atraumatic, PERRLA Neck: Supple, JVD Cardiovascular: Regular rate, Normal S1, Normal S2 Lungs: Clear to auscultation Abdomen: Bowel sounds, Soft - Procedures Procedures: Procedures Procedure Code Date INDIVID PSYCHOTHERAP NEC 94.39 06/08/08 OTHER GROUP THERAPY 94.44 06/08/08 Assessment/Plan - Problem List Patient Problems: All Active Problems AGITATION AND STRIKING OUT, DISRUPTIVE (Acute) - Assessment Assessment: 1.CHRONIC ANEMIA 2.HYPOTHYROIDISM 3.DEMENTIA. - Plan Plan: CONT CURRENT TREATMENT Nutritional Asmnt/Malnutr-PDOC - Dietary Evaluation Malnutrition Findings (Please click <Entered> for more info): Nutritional Asmnt/Malnutrition Start: 07/22/17 16: 21 Text: Status: Complete Freq: Document 07/22/17 16:21 FLORY (Rec: 07/22/17 16:35 [email or web address]) Nutritional Asmnt/Malnutrition Patient General Information Nutritional Screening Moderate Risk Diagnosis psychosis Pertinent Medical Hx/Surgical Hx hypothyroidism, chronic anemia , chronic constipation, dementia, psychosis Subjective Information Pt seen lying in bed at time of visit, confused. Pt reported good appetite, would like coffee with meal tray. Per EMR PO intake 1005. Current Diet Order/ Nutrition Support regular Pertinent Medications coalce, Iron, synthroid, seroquel Pertinent Labs 07/18 Na 133, glucose 128, A1c 6.8 Nutritional Hx/Data Height 1.6 m Height (Calculated Centimeters) 160.0 Current Weight (lbs) 93.894 kg Weight (Calculated Kilograms) 93.9 Weight (Calculated Grams) 60753.6 [place] Body Weight 115 Body Mass Index (BMI) 36.6 Weight Status Obese GI Symptoms GI Symptoms None Last BM 07/22 Difficult in: None Skin Integrity/Comment: blackened to left dorsal medical foot Current %PO Good (75-100%) Estimated Nutritional Goals BEE in Kcals: Using Current wt Calories/Kcals/Kg 25-30 Kcals Calculated 2548-2425 Protein: Using Current wt Protein g/k Protein Calculated 63 Fluid: ml 1575-1890ml (1ml/kcal) Nutritional Problem No current Nutrition Prob Problem N/A Malnutrition Alert Protein-Calorie Malnutrition N/A Is there a minimum of two criteria No selected? Query Text:Check all the applicable criteria. A minimum of two criteria are recommended for diagnosis of either severe or non-severe malnutrition. Intervention/Recommendation Comments 1. Continue with current diet as ordered. 2. Monitor PO intake, wt, labs and skin integrity 3. F/U as low risk in 7 days, 07/29 Expected Outcomes/Goals Expected Outcomes/Goals 1. PO intake to meet at least 75% of nutritional needs. 2. Wt stability, skin to remain intact, labs to approach WNL.
--- NOTE | 2017-08-31 20:40 | Progress Notes ---
DATE: SUBJECTIVE: The patient was seen and evaluated. The patient's chart reviewed. Nursing staff reported overnight, the patient continues to be suspicious, labile behavior, fluctuates a lot. Today on [id number] evaluation, the patient is refusing interview, observed to be easily irritable, impulsive behavior was also noted yesterday by primary psychiatrist. MENTAL STATUS EXAMINATION: Irritable, unpredictable, labile, poor insight, respiratory illness. ASSESSMENT AND PLAN: This is a 57-year-old female who continues to demonstrate labile behavior, impulsive behavior, exacerbates her negative thoughts. Therefore, at this point, we will continue monitoring and evaluating and targeting the patient's symptoms with the current medication regimen, which includes Lasix, Vistaril, Seroquel 100 mg p.o. b.i.d. 300 at nighttime and Depakote at 500 mg p.o. b.i.d. JOB# [id number]
[2017-09-01] MEDS: Levothyroxine 0.05 Mg Tab PO SCH (06:41)
[2017-09-01] MEDS ORDERED: Haloperidol Lactate 5 mg/mL 1mL Vial IM ONE (08:03)
--- NOTE | 2017-09-01 09:18 | General Progress Note ---
Subjective - Review of Systems Service Date: 09/01/17 Subjective: resting comfortably no distress Objective - Results Result Diagrams: 07/18/17 12:15 07/18/17 12:15 Recent Labs: Laboratory Last Values WBC 7.4 Th/cmm (4.8-10.8) 07/18/17 12:15 RBC 4.12 Mil/cmm (3.80-5.10) 07/18/17 12:15 Hgb 11.5 gm/dL (12-16) L 07/18/17 12:15 Hct 34.7 % (41.0-60) L 07/18/17 12:15 MCV 84.3 fl (81-100) 07/18/17 12:15 MCH 28.0 pg (27.0-31.0) 07/18/17 12:15 MCHC Differential 33.2 pg (28.0-36.0) 07/18/17 12:15 RDW 15.9 % (11.5-20.0) 07/18/17 12:15 Plt Count 186 Th/cmm (150-400) 07/18/17 12:15 MPV 8.4 fl 07/18/17 12:15 Neutrophils % 61.1 % (40.0-80.0) 07/18/17 12:15 Lymphocytes % 23.7 % (20.0-50.0) 07/18/17 12:15 Monocytes % 13.2 % (2.0-10.0) H 07/18/17 12:15 Eosinophils % 1.3 % (0.0-5.0) 07/18/17 12:15 Basophils % 0.7 % (0.0-2.0) 07/18/17 12:15 Sodium 133 mEq/L (136-145) L 07/18/17 12:15 Potassium 4.0 mEq/L (3.5-5.1) 07/18/17 12:15 Chloride 98 mEq/L (98-107) 07/18/17 12:15 Carbon Dioxide 27.8 mEq/L (21.0-31.0) 07/18/17 12:15 Anion Gap 11.2 (7.0-16.0) 07/18/17 12:15 BUN 10 mg/dL (7-25) 07/18/17 12:15 Creatinine 0.6 mg/dL (0.6-1.2) 07/18/17 12:15 Est GFR ( Amer) > 60.0 ml/min (>90) 07/18/17 12:15 Est GFR (Non-Af Amer) > 60.0 ml/min 07/18/17 12:15 BUN/Creatinine Ratio 16.7 07/18/17 12:15 Glucose 128 mg/dL (70-105) H 07/18/17 12:15 POC Glucose 116 MG/DL (70 - 105) H 07/30/17 16:06 Hemoglobin A1c % 6.8 % (4.0-6.0) H 07/18/17 12:15 Calcium 9.2 mg/dL (8.6-10.3) 07/18/17 12:15 Total Bilirubin 0.2 mg/dL (0.3-1.0) L 07/18/17 12:15 AST 12 U/L (13-39) L 07/18/17 12:15 ALT 8 U/L (7-52) 07/18/17 12:15 Alkaline Phosphatase 153 U/L (34-104) H 07/18/17 12:15 Total Protein 6.7 gm/dL (6.0-8.3) 07/18/17 12:15 Albumin 3.7 gm/dL (3.7-5.3) 07/18/17 12:15 Globulin 3.0 gm/dL 07/18/17 12:15 Albumin/Globulin Ratio 1.2 (1.0-1.8) 07/18/17 12:15 Triglycerides 61 mg/dL (<150) 07/18/17 12:15 Cholesterol 207 mg/dL (<200) H 07/18/17 12:15 LDL Cholesterol Direct 127 mg/dL (75-193) 07/18/17 12:15 HDL Cholesterol 61 mg/dL (23-92) 07/18/17 12:15 TSH 2.79 uIU/ml (0.34-5.60) 07/18/17 12:15 Salicylates < 25.0 mg/L (30.0-100.0) L 07/18/17 12:15 Acetaminophen < 10.0 ug/mL (10.0-30.0) L 07/18/17 12:15 Valproic Acid 53.3 ug/mL (50.0-100.0) 08/12/17 13:10 Ethyl Alcohol < 10 mg/dL (0-10) 07/18/17 12:15 RPR NONREACTIVE (NONREACTIVE) 07/18/17 12:15 - Physical Exam Vitals and I&O: Vital Signs Temp 97.8 F 09/01/17 05:32 Pulse 86 09/01/17 05:32 Resp 19 09/01/17 05:32 BP 111/72 09/01/17 05:32 Pulse Ox 94 09/01/17 05:32 Intake & Output 08/31/17 09/01/17 09/01/17 18:59 06:59 18:59 Intake Total 1500 480 Balance 1500 480 Intake: Oral 1500 480 Other: # Voids 4 1 # Bowel Movements 1 Active Medications: Current Medications Acetaminophen (Tylenol) 650 mg PO Q4HR PRN PRN Reason: Mild Pain / Temp above 100 Stop: 09/16/17 15:39 Al Hydrox/Mg Hydrox/Simethicone (Maalox) 30 ml PO Q4HR PRN PRN Reason: GI DISTRESS Stop: 09/16/17 15:39 Chlorpromazine (Thorazine) 100 mg PO QID [facility] Stop: 10/25/17 16:59 Last Admin: 08/31/17 20:27 Dose: 100 mg Clonazepam (Klonopin) 2 mg PO BID [facility] PRN Reason: Protocol Stop: 09/17/17 08:59 Last Admin: 08/31/17 16:43 Dose: 2 mg Docusate Sodium (Colace) 100 mg PO BID [facility] Stop: 09/17/17 08:59 Last Admin: 08/31/17 16:43 Dose: 100 mg Famotidine (Pepcid) 20 mg PO DAILY [facility] Stop: 09/17/17 08:59 Last Admin: 08/31/17 08:19 Dose: 20 mg Ferrous Sulfate (Iron) 325 mg PO DAILY [facility] Stop: 09/17/17 08:59 Last Admin: 08/31/17 08:18 Dose: 325 mg Levothyroxine Sodium (Synthroid) 0.05 mg PO QDAC [facility] Stop: 09/17/17 07:29 Last Admin: 09/01/17 06:41 Dose: 0.05 mg Magnesium Hydroxide (Milk Of Magnesia) 30 ml PO DAILY PRN PRN Reason: Constipation Stop: 09/16/17 19:35 Valproate Sodium (Depakene) 500 mg PO BID [facility] PRN Reason: Protocol Stop: 09/17/17 10:59 Last Admin: 08/31/17 16:44 Dose: 500 mg Zolpidem Tartrate (Ambien) 5 mg PO HS PRN PRN Reason: Insomnia Stop: 09/16/17 15:39 Last Admin: 08/31/17 20:27 Dose: 5 mg General: Alert, Cooperative HEENT: Atraumatic, PERRLA Neck: Supple, JVD Cardiovascular: Regular rate, Normal S1, Normal S2 Lungs: Clear to auscultation Abdomen: Bowel sounds, Soft - Procedures Procedures: Procedures Procedure Code Date INDIVID PSYCHOTHERAP NEC 94.39 06/08/08 OTHER GROUP THERAPY 94.44 06/08/08 Assessment/Plan - Problem List Patient Problems: All Active Problems AGITATION AND STRIKING OUT, DISRUPTIVE (Acute) - Assessment Assessment: 1.CHRONIC ANEMIA 2.HYPOTHYROIDISM 3.DEMENTIA. - Plan Plan: CONT CURRENT TREATMENT Nutritional Asmnt/Malnutr-PDOC - Dietary Evaluation Malnutrition Findings (Please click <Entered> for more info): Nutritional Asmnt/Malnutrition Start: 07/22/17 16: 21 Text: Status: Complete Freq: Document 07/22/17 16:21 FLORY (Rec: 07/22/17 16:35 FLORYG [id number]) Nutritional Asmnt/Malnutrition Patient General Information Nutritional Screening Moderate Risk Diagnosis psychosis Pertinent Medical Hx/Surgical Hx hypothyroidism, chronic anemia , chronic constipation, dementia, psychosis Subjective Information Pt seen lying in bed at time of visit, confused. Pt reported good appetite, would like coffee with meal tray. Per EMR PO intake 1005. Current Diet Order/ Nutrition Support regular Pertinent Medications coalce, Iron, synthroid, seroquel Pertinent Labs 07/18 Na 133, glucose 128, A1c 6.8 Nutritional Hx/Data Height 1.6 m Height (Calculated Centimeters) 160.0 Current Weight (lbs) 93.894 kg Weight (Calculated Kilograms) 93.9 Weight (Calculated Grams) 36034.6 [place] Body Weight 115 Body Mass Index (BMI) 36.6 Weight Status Obese GI Symptoms GI Symptoms None Last BM 07/22 Difficult in: None Skin Integrity/Comment: blackened to left dorsal medical foot Current %PO Good (75-100%) Estimated Nutritional Goals BEE in Kcals: Using Current wt Calories/Kcals/Kg 25-30 Kcals Calculated 2168-5817 Protein: Using Current wt Protein g/k Protein Calculated 63 Fluid: ml 1575-1890ml (1ml/kcal) Nutritional Problem No current Nutrition Prob Problem N/A Malnutrition Alert Protein-Calorie Malnutrition N/A Is there a minimum of two criteria No selected? Query Text:Check all the applicable criteria. A minimum of two criteria are recommended for diagnosis of either severe or non-severe malnutrition. Intervention/Recommendation Comments 1. Continue with current diet as ordered. 2. Monitor PO intake, wt, labs and skin integrity 3. F/U as low risk in 7 days, 07/29 Expected Outcomes/Goals Expected Outcomes/Goals 1. PO intake to meet at least 75% of nutritional needs. 2. Wt stability, skin to remain intact, labs to approach WNL.
[2017-09-01] MEDS: Multivitamin w/ Minerals Tab PO SCH (09:53)
[2017-09-01] MEDS: Ferrous Sulfate 325 MG TAB PO SCH (09:53)
--- NOTE | 2017-09-01 20:48 | Progress Notes ---
DATE: SUBJECTIVE: The patient was seen and evaluated. The patient's chart reviewed. Today on [id number] evaluation, the patient appears very suspicious, paranoid. She grabs her food and threw it to the floor including the coffee, aggressive, yelling, screaming, nonsensical. MENTAL STATUS EXAMINATION: Disorganized, psychotic, irritable. ASSESSMENT AND PLAN: The patient continues to be very psychotic, unpredictable, resulting in throwing her food and unable to formulate safe plan. We appreciate the medical followup note who recommended to continue with the current medical treatment. Due to the patient's active psychotic symptoms, we will keep the patient in emergent medications. She is currently on Thorazine 400 mg a day, clonazepam 2 b.i.d., and Depakote 500 mg p.o. b.i.d. JOB# [id number]
[2017-09-02] MEDS: Levothyroxine 0.05 Mg Tab PO SCH (06:38)
[2017-09-02] MEDS: Multivitamin w/ Minerals Tab PO SCH (10:10)
[2017-09-02] MEDS: Ferrous Sulfate 325 MG TAB PO SCH (10:10)
--- NOTE | 2017-09-02 14:52 | General Progress Note ---
Subjective - Review of Systems Service Date: 09/02/17 Subjective: resting comfortably no distress Objective - Results Result Diagrams: 07/18/17 12:15 07/18/17 12:15 Recent Labs: Laboratory Last Values WBC 7.4 Th/cmm (4.8-10.8) 07/18/17 12:15 RBC 4.12 Mil/cmm (3.80-5.10) 07/18/17 12:15 Hgb 11.5 gm/dL (12-16) L 07/18/17 12:15 Hct 34.7 % (41.0-60) L 07/18/17 12:15 MCV 84.3 fl (81-100) 07/18/17 12:15 MCH 28.0 pg (27.0-31.0) 07/18/17 12:15 MCHC Differential 33.2 pg (28.0-36.0) 07/18/17 12:15 RDW 15.9 % (11.5-20.0) 07/18/17 12:15 Plt Count 186 Th/cmm (150-400) 07/18/17 12:15 MPV 8.4 fl 07/18/17 12:15 Neutrophils % 61.1 % (40.0-80.0) 07/18/17 12:15 Lymphocytes % 23.7 % (20.0-50.0) 07/18/17 12:15 Monocytes % 13.2 % (2.0-10.0) H 07/18/17 12:15 Eosinophils % 1.3 % (0.0-5.0) 07/18/17 12:15 Basophils % 0.7 % (0.0-2.0) 07/18/17 12:15 Sodium 133 mEq/L (136-145) L 07/18/17 12:15 Potassium 4.0 mEq/L (3.5-5.1) 07/18/17 12:15 Chloride 98 mEq/L (98-107) 07/18/17 12:15 Carbon Dioxide 27.8 mEq/L (21.0-31.0) 07/18/17 12:15 Anion Gap 11.2 (7.0-16.0) 07/18/17 12:15 BUN 10 mg/dL (7-25) 07/18/17 12:15 Creatinine 0.6 mg/dL (0.6-1.2) 07/18/17 12:15 Est GFR ( Amer) > 60.0 ml/min (>90) 07/18/17 12:15 Est GFR (Non-Af Amer) > 60.0 ml/min 07/18/17 12:15 BUN/Creatinine Ratio 16.7 07/18/17 12:15 Glucose 128 mg/dL (70-105) H 07/18/17 12:15 POC Glucose 116 MG/DL (70 - 105) H 07/30/17 16:06 Hemoglobin A1c % 6.8 % (4.0-6.0) H 07/18/17 12:15 Calcium 9.2 mg/dL (8.6-10.3) 07/18/17 12:15 Total Bilirubin 0.2 mg/dL (0.3-1.0) L 07/18/17 12:15 AST 12 U/L (13-39) L 07/18/17 12:15 ALT 8 U/L (7-52) 07/18/17 12:15 Alkaline Phosphatase 153 U/L (34-104) H 07/18/17 12:15 Total Protein 6.7 gm/dL (6.0-8.3) 07/18/17 12:15 Albumin 3.7 gm/dL (3.7-5.3) 07/18/17 12:15 Globulin 3.0 gm/dL 07/18/17 12:15 Albumin/Globulin Ratio 1.2 (1.0-1.8) 07/18/17 12:15 Triglycerides 61 mg/dL (<150) 07/18/17 12:15 Cholesterol 207 mg/dL (<200) H 07/18/17 12:15 LDL Cholesterol Direct 127 mg/dL (75-193) 07/18/17 12:15 HDL Cholesterol 61 mg/dL (23-92) 07/18/17 12:15 TSH 2.79 uIU/ml (0.34-5.60) 07/18/17 12:15 Salicylates < 25.0 mg/L (30.0-100.0) L 07/18/17 12:15 Acetaminophen < 10.0 ug/mL (10.0-30.0) L 07/18/17 12:15 Valproic Acid 53.3 ug/mL (50.0-100.0) 08/12/17 13:10 Ethyl Alcohol < 10 mg/dL (0-10) 07/18/17 12:15 RPR NONREACTIVE (NONREACTIVE) 07/18/17 12:15 - Physical Exam Vitals and I&O: Vital Signs Temp 97.3 F 09/02/17 06:21 Pulse 86 09/02/17 06:21 Resp 20 09/02/17 06:21 BP 118/60 09/02/17 06:21 Pulse Ox 97 09/02/17 06:21 Intake & Output 09/01/17 09/02/17 09/02/17 18:59 06:59 18:59 Intake Total 1300 360 Balance 1300 360 Intake: Oral 1300 360 Other: # Voids 5 2 # Bowel Movements 0 1 Active Medications: Current Medications Acetaminophen (Tylenol) 650 mg PO Q4HR PRN PRN Reason: Mild Pain / Temp above 100 Stop: 09/16/17 15:39 Al Hydrox/Mg Hydrox/Simethicone (Maalox) 30 ml PO Q4HR PRN PRN Reason: GI DISTRESS Stop: 09/16/17 15:39 Chlorpromazine (Thorazine) 100 mg PO QID [facility] Stop: 11/01/17 08:59 Last Admin: 09/02/17 10:11 Dose: 100 mg Chlorpromazine (Thorazine) 25 mg PO QID [facility] Stop: 11/01/17 08:59 Last Admin: 09/02/17 10:11 Dose: 25 mg Clonazepam (Klonopin) 2 mg PO BID [facility] PRN Reason: Protocol Stop: 09/17/17 08:59 Last Admin: 09/02/17 10:09 Dose: 2 mg Docusate Sodium (Colace) 100 mg PO BID [facility] Stop: 09/17/17 08:59 Last Admin: 09/02/17 10:10 Dose: 100 mg Ferrous Sulfate (Iron) 325 mg PO DAILY [facility] Stop: 09/17/17 08:59 Last Admin: 09/02/17 10:10 Dose: 325 mg Levothyroxine Sodium (Synthroid) 0.05 mg PO QDAC [facility] Stop: 09/17/17 07:29 Last Admin: 09/02/17 06:38 Dose: 0.05 mg Magnesium Hydroxide (Milk Of Magnesia) 30 ml PO DAILY PRN PRN Reason: Constipation Stop: 09/16/17 19:35 Valproate Sodium (Depakene) 500 mg PO BID [facility] PRN Reason: Protocol Stop: 09/17/17 10:59 Last Admin: 09/02/17 10:09 Dose: 500 mg Zolpidem Tartrate (Ambien) 5 mg PO HS PRN PRN Reason: Insomnia Stop: 09/16/17 15:39 Last Admin: 09/02/17 01:32 Dose: 5 mg General: Alert, Cooperative HEENT: Atraumatic, PERRLA Neck: Supple, JVD Cardiovascular: Regular rate, Normal S1, Normal S2 Lungs: Clear to auscultation Abdomen: Bowel sounds, Soft - Procedures Procedures: Procedures Procedure Code Date INDIVID PSYCHOTHERAP NEC 94.39 06/08/08 OTHER GROUP THERAPY 94.44 06/08/08 Assessment/Plan - Problem List Patient Problems: All Active Problems AGITATION AND STRIKING OUT, DISRUPTIVE (Acute) - Assessment Assessment: 1.CHRONIC ANEMIA 2.HYPOTHYROIDISM 3.DEMENTIA. - Plan Plan: CONT CURRENT TREATMENT Nutritional Asmnt/Malnutr-PDOC - Dietary Evaluation Malnutrition Findings (Please click <Entered> for more info): Nutritional Asmnt/Malnutrition Start: 07/22/17 16: 21 Text: Status: Complete Freq: Document 07/22/17 16:21 FLORY (Rec: 07/22/17 16:35 [facility] [id number]) Nutritional Asmnt/Malnutrition Patient General Information Nutritional Screening Moderate Risk Diagnosis psychosis Pertinent Medical Hx/Surgical Hx hypothyroidism, chronic anemia , chronic constipation, dementia, psychosis Subjective Information Pt seen lying in bed at time of visit, confused. Pt reported good appetite, would like coffee with meal tray. Per EMR PO intake 1005. Current Diet Order/ Nutrition Support regular Pertinent Medications coalce, Iron, synthroid, seroquel Pertinent Labs 07/18 Na 133, glucose 128, A1c 6.8 Nutritional Hx/Data Height 1.6 m Height (Calculated Centimeters) 160.0 Current Weight (lbs) 93.894 kg Weight (Calculated Kilograms) 93.9 Weight (Calculated Grams) 56105.6 [place] Body Weight 115 Body Mass Index (BMI) 36.6 Weight Status Obese GI Symptoms GI Symptoms None Last BM 07/22 Difficult in: None Skin Integrity/Comment: blackened to left dorsal medical foot Current %PO Good (75-100%) Estimated Nutritional Goals BEE in Kcals: Using Current wt Calories/Kcals/Kg 25-30 Kcals Calculated 6718-8538 Protein: Using Current wt Protein g/k Protein Calculated 63 Fluid: ml 1575-1890ml (1ml/kcal) Nutritional Problem No current Nutrition Prob Problem N/A Malnutrition Alert Protein-Calorie Malnutrition N/A Is there a minimum of two criteria No selected? Query Text:Check all the applicable criteria. A minimum of two criteria are recommended for diagnosis of either severe or non-severe malnutrition. Intervention/Recommendation Comments 1. Continue with current diet as ordered. 2. Monitor PO intake, wt, labs and skin integrity 3. F/U as low risk in 7 days, 07/29 Expected Outcomes/Goals Expected Outcomes/Goals 1. PO intake to meet at least 75% of nutritional needs. 2. Wt stability, skin to remain intact, labs to approach WNL.
--- NOTE | 2017-09-02 22:35 | Progress Notes ---
DATE: 09/02/2017 Today on [id number] evaluation nursing staff reported that yesterday she continued to intermittently scream, yell. No side effects of the increase of the Thorazine. Today on [id number] evaluation, the patient in the middle of a conversation continues to derail, unable to engage in a linear conversation. She continues to be easily agitated. MENTAL STATUS EXAMINATION: Disorganized, agitated, irritable and aggressive. ASSESSMENT AND PLAN: The patient is a 57-year-old female who continues to present irritable, agitated, and aggressive, needing a lot of medication to continue monitoring and provide safety of the patient. We will continue with the increase of Thorazine at 125 mg will be reflected today to target the patient's severe aggressive and psychotic behavior. JOB# [id number]
[2017-09-03] MEDS: Levothyroxine 0.05 Mg Tab PO SCH (06:31)
[2017-09-03] MEDS ORDERED: Haloperidol Lactate 5 mg/mL 1mL Vial IM ONE (07:46)
[2017-09-03] MEDS ORDERED: Haloperidol Lactate 5 mg/mL 1mL Vial ONE (07:51)
[2017-09-03] MEDS: Multivitamin w/ Minerals Tab PO SCH (09:55)
[2017-09-03] MEDS: Ferrous Sulfate 325 MG TAB PO SCH (09:55)
--- NOTE | 2017-09-03 11:45 | Internal Medicine Prog Note ---
Internal Medicine Subjective - Subjective Service Date: 09/03/17 Patient seen and examined:: with staff Patient is:: verbal, in wheelchair, confused Per staff patient has:: no adverse event (SHE HAS REDNESS OF LEFT SHOLDER SKIN) Internal Medicine Objective - Results Result Diagrams: 07/18/17 12:15 07/18/17 12:15 Recent Labs: Laboratory Last Values WBC 7.4 Th/cmm (4.8-10.8) 07/18/17 12:15 RBC 4.12 Mil/cmm (3.80-5.10) 07/18/17 12:15 Hgb 11.5 gm/dL (12-16) L 07/18/17 12:15 Hct 34.7 % (41.0-60) L 07/18/17 12:15 MCV 84.3 fl (81-100) 07/18/17 12:15 MCH 28.0 pg (27.0-31.0) 07/18/17 12:15 MCHC Differential 33.2 pg (28.0-36.0) 07/18/17 12:15 RDW 15.9 % (11.5-20.0) 07/18/17 12:15 Plt Count 186 Th/cmm (150-400) 07/18/17 12:15 MPV 8.4 fl 07/18/17 12:15 Neutrophils % 61.1 % (40.0-80.0) 07/18/17 12:15 Lymphocytes % 23.7 % (20.0-50.0) 07/18/17 12:15 Monocytes % 13.2 % (2.0-10.0) H 07/18/17 12:15 Eosinophils % 1.3 % (0.0-5.0) 07/18/17 12:15 Basophils % 0.7 % (0.0-2.0) 07/18/17 12:15 Sodium 133 mEq/L (136-145) L 07/18/17 12:15 Potassium 4.0 mEq/L (3.5-5.1) 07/18/17 12:15 Chloride 98 mEq/L (98-107) 07/18/17 12:15 Carbon Dioxide 27.8 mEq/L (21.0-31.0) 07/18/17 12:15 Anion Gap 11.2 (7.0-16.0) 07/18/17 12:15 BUN 10 mg/dL (7-25) 07/18/17 12:15 Creatinine 0.6 mg/dL (0.6-1.2) 07/18/17 12:15 Est GFR ( Amer) > 60.0 ml/min (>90) 07/18/17 12:15 Est GFR (Non-Af Amer) > 60.0 ml/min 07/18/17 12:15 BUN/Creatinine Ratio 16.7 07/18/17 12:15 Glucose 128 mg/dL (70-105) H 07/18/17 12:15 POC Glucose 116 MG/DL (70 - 105) H 07/30/17 16:06 Hemoglobin A1c % 6.8 % (4.0-6.0) H 07/18/17 12:15 Calcium 9.2 mg/dL (8.6-10.3) 07/18/17 12:15 Total Bilirubin 0.2 mg/dL (0.3-1.0) L 07/18/17 12:15 AST 12 U/L (13-39) L 07/18/17 12:15 ALT 8 U/L (7-52) 07/18/17 12:15 Alkaline Phosphatase 153 U/L (34-104) H 07/18/17 12:15 Total Protein 6.7 gm/dL (6.0-8.3) 07/18/17 12:15 Albumin 3.7 gm/dL (3.7-5.3) 07/18/17 12:15 Globulin 3.0 gm/dL 07/18/17 12:15 Albumin/Globulin Ratio 1.2 (1.0-1.8) 07/18/17 12:15 Triglycerides 61 mg/dL (<150) 07/18/17 12:15 Cholesterol 207 mg/dL (<200) H 07/18/17 12:15 LDL Cholesterol Direct 127 mg/dL (75-193) 07/18/17 12:15 HDL Cholesterol 61 mg/dL (23-92) 07/18/17 12:15 TSH 2.79 uIU/ml (0.34-5.60) 07/18/17 12:15 Salicylates < 25.0 mg/L (30.0-100.0) L 07/18/17 12:15 Acetaminophen < 10.0 ug/mL (10.0-30.0) L 07/18/17 12:15 Valproic Acid 53.3 ug/mL (50.0-100.0) 08/12/17 13:10 Ethyl Alcohol < 10 mg/dL (0-10) 07/18/17 12:15 RPR NONREACTIVE (NONREACTIVE) 07/18/17 12:15 - Physical Exam Vitals and I&O: Vital Signs Temp 97.2 F 09/03/17 06:21 Pulse 89 09/03/17 06:21 Resp 20 09/03/17 06:21 BP 131/87 09/03/17 06:21 Pulse Ox 99 09/03/17 06:21 Intake & Output 09/02/17 09/03/17 09/03/17 18:59 06:59 18:59 Intake Total 1300 420 Balance 1300 420 Intake: Oral 1300 420 Other: # Voids 5 3 # Bowel Movements 0 0 Active Medications: Current Medications Acetaminophen (Tylenol) 650 mg PO Q4HR PRN PRN Reason: Mild Pain / Temp above 100 Stop: 09/16/17 15:39 Al Hydrox/Mg Hydrox/Simethicone (Maalox) 30 ml PO Q4HR PRN PRN Reason: GI DISTRESS Stop: 09/16/17 15:39 Chlorpromazine (Thorazine) 100 mg PO QID [facility] Stop: 11/01/17 08:59 Last Admin: 09/02/17 20:31 Dose: 100 mg Chlorpromazine (Thorazine) 25 mg PO QID [facility] Stop: 11/01/17 08:59 Last Admin: 09/02/17 20:31 Dose: 25 mg Clonazepam (Klonopin) 2 mg PO BID [facility] PRN Reason: Protocol Stop: 09/17/17 08:59 Last Admin: 09/02/17 17:17 Dose: 2 mg Docusate Sodium (Colace) 100 mg PO BID [facility] Stop: 09/17/17 08:59 Last Admin: 09/02/17 17:18 Dose: 100 mg Ferrous Sulfate (Iron) 325 mg PO DAILY [facility] Stop: 09/17/17 08:59 Last Admin: 09/02/17 10:10 Dose: 325 mg Levothyroxine Sodium (Synthroid) 0.05 mg PO QDAC [facility] Stop: 09/17/17 07:29 Last Admin: 09/03/17 06:31 Dose: 0.05 mg Magnesium Hydroxide (Milk Of Magnesia) 30 ml PO DAILY PRN PRN Reason: Constipation Stop: 09/16/17 19:35 Valproate Sodium (Depakene) 500 mg PO BID [facility] PRN Reason: Protocol Stop: 09/17/17 10:59 Last Admin: 09/02/17 17:17 Dose: 500 mg Zolpidem Tartrate (Ambien) 5 mg PO HS PRN PRN Reason: Insomnia Stop: 09/16/17 15:39 Last Admin: 09/02/17 23:19 Dose: 5 mg General: demented HEENT: NC/AT, PERRLA, EOMI, anicteric sclerae, throat clear Neck: Supple, No JVD, No thyromegaly, +2 carotid pulse wo bruit, No LAD Lungs: CTAB Cardiovascular: Normal S1, Normal S2, without murmur Abdomen: non-tender, non-distended Extremities: rash Neurological: no change - Procedures Procedures: Procedures Procedure Code Date INDIVID PSYCHOTHERAP NEC 94.39 06/08/08 OTHER GROUP THERAPY 94.44 06/08/08 Internal Medicine Assmt/Plan - Assessment Assessment: 1.HYPOTHYROIDISM 2.DEMENTIA. 3.PSYCHOSIS - Plan Plan: CONTINUE ON CURRENT MEDICATION AND DIET. Nutritional Asmnt/Malnutr-PDOC - Dietary Evaluation Malnutrition Findings (Please click <Entered> for more info): Nutritional Asmnt/Malnutrition Start: 07/22/17 16: 21 Text: Status: Complete Freq: Document 07/22/17 16:21 FLORY (Rec: 07/22/17 16:35 [id number]) Nutritional Asmnt/Malnutrition Patient General Information Nutritional Screening Moderate Risk Diagnosis psychosis Pertinent Medical Hx/Surgical Hx hypothyroidism, chronic anemia , chronic constipation, dementia, psychosis Subjective Information Pt seen lying in bed at time of visit, confused. Pt reported good appetite, would like coffee with meal tray. Per EMR PO intake 1005. Current Diet Order/ Nutrition Support regular Pertinent Medications coalce, Iron, synthroid, seroquel Pertinent Labs 07/18 Na 133, glucose 128, A1c 6.8 Nutritional Hx/Data Height 1.6 m Height (Calculated Centimeters) 160.0 Current Weight (lbs) 93.894 kg Weight (Calculated Kilograms) 93.9 Weight (Calculated Grams) 93543.6 [place] Body Weight 115 Body Mass Index (BMI) 36.6 Weight Status Obese GI Symptoms GI Symptoms None Last BM 07/22 Difficult in: None Skin Integrity/Comment: blackened to left dorsal medical foot Current %PO Good (75-100%) Estimated Nutritional Goals BEE in Kcals: Using Current wt Calories/Kcals/Kg 25-30 Kcals Calculated 8531-4909 Protein: Using Current wt Protein g/k Protein Calculated 63 Fluid: ml 1575-1890ml (1ml/kcal) Nutritional Problem No current Nutrition Prob Problem N/A Malnutrition Alert Protein-Calorie Malnutrition N/A Is there a minimum of two criteria No selected? Query Text:Check all the applicable criteria. A minimum of two criteria are recommended for diagnosis of either severe or non-severe malnutrition. Intervention/Recommendation Comments 1. Continue with current diet as ordered. 2. Monitor PO intake, wt, labs and skin integrity 3. F/U as low risk in 7 days, 07/29 Expected Outcomes/Goals Expected Outcomes/Goals 1. PO intake to meet at least 75% of nutritional needs. 2. Wt stability, skin to remain intact, labs to approach WNL.
--- NOTE | 2017-09-03 16:57 | Progress Notes ---
DATE: 09/03/2017 Case was discussed with staff of the patient, reviewed records. The patient can have episodes of agitation and irritability, continues to have poor insight, unable to make safe plan for self-care, unpredictable, impulsive. She was visited by social security assessor from the [facility] waiting on placement for her. No side effects with the medication, no sedation, no nausea, no extrapyramidal symptoms concerning as needed medication. Her starting dose was increased by 25 mg at 4 times a day. No side effects with the medication, no sedation, no nausea, no extrapyramidal symptoms. We will continue with the patient in group therapy, milieu therapy, and adjust medications as needed. JOB# [id number]
[2017-09-04] MEDS: Levothyroxine 0.05 Mg Tab PO SCH (06:39)
[2017-09-04] MEDS ORDERED: Haloperidol Lactate 5 mg/mL 1mL Vial ONE (07:09)
[2017-09-04] MEDS ORDERED: Haloperidol Lactate 5 mg/mL 1mL Vial IM ONE (07:10)
[2017-09-04] MEDS: Multivitamin w/ Minerals Tab PO SCH (08:14)
[2017-09-04] MEDS: Ferrous Sulfate 325 MG TAB PO SCH (08:14)
--- NOTE | 2017-09-04 13:35 | Progress Notes ---
DATE: 09/04/2017 Case was discussed with staff of the patient, reviewed records. The patient continues to be unpredictable, impulsive with episodes of yelling and screaming. Continues to be unable to participate in meaningful conversation or make safe plan for self-care with episodes of feeling and screaming. She is sleeping better. She is eating better. No side effects from the medication, no sedation, no nausea and no extrapyramidal symptoms. We will continue the patient in group therapy and milieu therapy, and adjust medications as needed. JOB# [id number]
== END 2017-09-04 13:30 | DRG 885 ==
LOC: ER 11:42 → GERO 11:56
PROVIDERS: ADMIT Psychiatry & Neurology Psychiatry; ATTEND Psychiatry & Neurology Psychiatry
DX: F31.5 Bipolar disorder, current episode depressed, severe, with psychotic features (principal); E03.9 Hypothyroidism, unspecified; K21.9 Gastro-esophageal reflux disease without esophagitis; D64.9 Anemia, unspecified; K59.00 Constipation, unspecified; F03.90 Unspecified dementia, unspecified severity, without behavioral disturbance, psychotic disturbance, mood disturbance, and anxiety; I10 Essential (primary) hypertension; M19.90 Unspecified osteoarthritis, unspecified site; K59.09 Other constipation; L30.8 Other specified dermatitis
CPT/HCPCS: 36415-UA; 80053-TC; 80061-TC; 80164-TC; 80320-TC; 80329-TC; 82948-90; 83036-90; 84443-TC; 85025-TC; 86592-TC; 93005; J1200; J1630; J2060; J3230; Q0161; X3904; Z7610